=== PATIENT | male | born 1935 | race Caucasian/White ===

== ENCOUNTER → 2016-06-07 | Outpatient (CLI) | payer MEDICARE, OTHER ==
[2016-06-07 05:49] LABS: ABSOLUTE BASOPHILS # (AUTO) 0.1 10^3/uL (0.0-0.2); ABSOLUTE EOSINOPHILS # (AUTO) 0.2 10^3/uL (0.0-0.6); ABSOLUTE LYMPHOCYTES (AUTO) 1.6 10^3/uL (0.5-4.7); ABSOLUTE MONOCYTES (AUTO) 1.1 10^3/uL (0.1-1.4); ABSOLUTE NEUT (AUTO) 6.1 10^3/uL (1.7-8.2); BASOPHILS % (AUTO) 0.8 % (0-2); EOSINOPHILS % (AUTO) 2.5 % (0-6); HEMATOCRIT 35.8 % (37.9-51.0); HEMOGLOBIN 11.2 g/dL (13.5-17.0); HGB HCT DIFFERENCE -2.2; LYMPHOCYTES % (AUTO) 17.6 % (13-45); MEAN CORPUSCULAR HGB CONC 31.2 g/dL (32.0-36.0); MEAN CORPUSCULAR VOLUME 80 fl (80-97); RED BLOOD COUNT 4.47 10^6/uL (4.35-5.55); RED CELL DISTRIBUTION WIDTH 16.8 % (11.5-14.0); SEGMENTED NEUTROPHILS % (AUTO) 67.1 % (42-78)
[2016-06-07 06:21] LABS: ALANINE AMINOTRANSFERASE 36 U/L (21-72); ALBUMIN 3.6 g/dL (3.5-5.0); ALKALINE PHOSPHATASE 173 U/L (38-126); ANION GAP 16 (5-19); ASPARTATE AMINO TRANSFERASE 29 U/L (17-59); BILIRUBIN,TOTAL 1.3 mg/dL (0.2-1.3); BLOOD UREA NITROGEN 44 mg/dL (7-20); CALCIUM 9.3 mg/dL (8.4-10.2); CARBON DIOXIDE 26 mmol/L (22-30); CHLORIDE 105 mmol/L (98-107); CHOLESTEROL 86.68 mg/dL (0-200); CREATININE RESULT 1.88 mg/dL (0.52-1.25); Direct HDL 38 mg/dL (>40); GLUCOSE 129 mg/dL (75-110); POTASSIUM 3.9 mmol/L (3.6-5.0); SODIUM 146.5 mmol/L (137-145); TOTAL PROTEIN 6.4 g/dL (6.3-8.2); TRIGLYCERIDES 46 mg/dL (<150)
[2016-06-07 06:31] LABS: DIRECT LDL 31 mg/dL (<100)
== END ==
LOC: LAB 05:26
PROVIDERS: ATTEND Family Medicine
DX: I10 Essential (primary) hypertension (principal); E11.9 Type 2 diabetes mellitus without complications; E78.5 Hyperlipidemia, unspecified
CPT/HCPCS: 36415; 80053; 80061; 83036; 85025

== ENCOUNTER 2016-10-25 12:40 | Inpatient (IN) | payer MEDICARE, OTHER ==
[2016-10-25] MEDS ORDERED: NORMAL SALINE 1000 ML 1,000 ML IV ONE ×2 (13:07→15:19)
[2016-10-25 13:37] LABS: APPEARANCE,URINE CLOUDY; BILIRUBIN,URINE NEGATIVE (NEGATIVE); GLUCOSE, URINE NEGATIVE (NEGATIVE); KETONES,URINE NEGATIVE (NEGATIVE); LEUKOCYTE ESTERASE,URINE LARGE (NEGATIVE); NITRITE,URINE NEGATIVE (NEGATIVE); PROTEIN,URINE 100 mg/dL (NEGATIVE); URINE SPECIFIC GRAVITY 1.013; UROBILINOGEN,URINE NEGATIVE mg/dL (<2.0)
[2016-10-25 13:58] LABS: ABSOLUTE EOSINOPHILS # (AUTO) 0.1 10^3/uL (0.0-0.6); ABSOLUTE LYMPHOCYTES (AUTO) 0.7 10^3/uL (0.5-4.7); ABSOLUTE NEUT (AUTO) 7.8 10^3/uL (1.7-8.2); BASOPHILS % (AUTO) 0.4 % (0-2); EOSINOPHILS % (AUTO) 0.6 % (0-6); HEMATOCRIT 33.3 % (37.9-51.0); HEMOGLOBIN 10.2 g/dL (13.5-17.0); HGB HCT DIFFERENCE -2.7; LYMPHOCYTES % (AUTO) 7.6 % (13-45); MEAN CORPUSCULAR HEMOGLOBIN 21.5 pg (27.0-33.4); MEAN CORPUSCULAR HGB CONC 30.5 g/dL (32.0-36.0); MEAN CORPUSCULAR VOLUME 71 fl (80-97); MONOCYTES % (AUTO) 10.7 % (3-13); RED BLOOD COUNT 4.72 10^6/uL (4.35-5.55); RED CELL DISTRIBUTION WIDTH 18.9 % (11.5-14.0); SEGMENTED NEUTROPHILS % (AUTO) 80.7 % (42-78); WHITE BLOOD COUNT 9.7 10^3/uL (4.0-10.5)
[2016-10-25 14:01] LABS: PROTHROMBIN TIME 20.7 SEC (11.4-15.4)
[2016-10-25 14:08] LABS: ALANINE AMINOTRANSFERASE 30 U/L (21-72); ALBUMIN 3.3 g/dL (3.5-5.0); ALKALINE PHOSPHATASE 189 U/L (38-126); ANION GAP 14 (5-19); ASPARTATE AMINO TRANSFERASE 29 U/L (17-59); BILIRUBIN,DIRECT 0.6 mg/dL (0.0-0.4); BLOOD UREA NITROGEN 54 mg/dL (7-20); CALCIUM 9.3 mg/dL (8.4-10.2); CARBON DIOXIDE 23 mmol/L (22-30); CHLORIDE 103 mmol/L (98-107); CREATINE KINASE 33 U/L (55-170); CREATININE RESULT 2.09 mg/dL (0.52-1.25); GLUCOSE 141 mg/dL (75-110); POTASSIUM 5.4 mmol/L (3.6-5.0); SODIUM 139.9 mmol/L (137-145); TOTAL PROTEIN 7.2 g/dL (6.3-8.2)
--- NOTE | 2016-10-25 14:08 | RADIOLOGY REPORT (SQ) ---
EXAM DESCRIPTION: CHEST SINGLE VIEW COMPLETED DATE/TIME: 10/25/2016 1:41 pm REASON FOR STUDY: weak COMPARISON: September 2014 EXAM PARAMETERS: NUMBER OF VIEWS: One view. TECHNIQUE: Single frontal radiographic view of the chest acquired. RADIATION DOSE: NA LIMITATIONS: None. FINDINGS: LUNGS AND PLEURA: No opacities, masses or pneumothorax. No pleural effusion. MEDIASTINUM AND HILAR STRUCTURES: No masses. Contour normal. HEART AND VASCULAR STRUCTURES: Cardiac silhouette is enlarged. BONES: No acute findings. HARDWARE: Transvenous pacemaker is unchanged in position. OTHER: No other significant finding. IMPRESSION: Cardiomegaly. No acute consolidations or pleural effusions are identified. TECHNICAL DOCUMENTATION: JOB ID: [id number]
[2016-10-25 14:26] LABS: CREATINE KINASE MB 2.1 ng/mL (<4.55); TROPONIN I 0.014 ng/mL
--- NOTE | 2016-10-25 14:31 | RADIOLOGY REPORT (SQ) ---
EXAM DESCRIPTION: ANKLE LEFT COMPLETE COMPLETED DATE/TIME: 10/25/2016 1:41 pm REASON FOR STUDY: pain COMPARISON: None. NUMBER OF VIEWS: Three views. TECHNIQUE: AP, lateral, and oblique radiographic images acquired of the left ankle. LIMITATIONS: None. FINDINGS: MINERALIZATION: Osteopenia. BONES: No acute fracture or dislocation. No worrisome bone lesions. There is a plantar calcaneal sp ur. JOINTS: No effusions. SOFT TISSUES: Soft tissue swelling is present. OTHER: No other significant finding. IMPRESSION: Soft tissue swelling with no fracture. TECHNICAL DOCUMENTATION: JOB ID: [id number] [employer]- All Rights Reserved
--- NOTE | 2016-10-25 14:38 | RADIOLOGY REPORT (SQ) ---
EXAM DESCRIPTION: SHOULDER RIGHT 2 OR MORE VIEWS COMPLETED DATE/TIME: 10/25/2016 1:41 pm REASON FOR STUDY: pain COMPARISON: None. NUMBER OF VIEWS: Three views. TECHNIQUE: Internal rotation, external rotation, and Y view images acquired of the right shoulder. LIMITATIONS: None. FINDINGS: MINERALIZATION: Normal. BONES: No acute fracture or dislocation is seen. There is bony sclerosis involving the scapula at th e level of the glenoid and lateral portion of the scapula inferior to the glenoid. The differential possibilities would include metastatic disease or Paget's disease. Large osteophyte is identified at the level of the humeral head. JOINTS: No dislocation. VISUALIZED LUNGS AND RIBS: No pneumothorax. No rib fracture. SOFT TISSUES: No radiopaque foreign body. OTHER: No other significant finding. IMPRESSION: No evidence for acute fracture or dislocation. There is bony sclerosis involving the sc apula at the level of the glenoid and lateral portion of the scapula inferior to the glenoid. The di fferential possibilities would include metastatic disease or Paget's disease. Clinical correlation i s recommended. Other findings as noted above. TECHNICAL DOCUMENTATION: JOB ID: [id number]- All Rights Reserved
[2016-10-25] MEDS ORDERED: CEFTRIAXONE 1 GM/D5W RTU 50 ML IV ONE (14:54)
--- NOTE | 2016-10-25 15:19 | ER Document Report ---
ED General - General Chief Complaint: General Weakness Stated Complaint: LEG PAIN AND WEAKNESS Time Seen by Provider: 10/25/16 12:54 TRAVEL OUTSIDE OF THE [place] IN LAST 30 DAYS: No - HPI Patient complains to provider of: Generalized weakness feeling unwell Notes: Patient coming in for generalized weakness feeling unwell. Patient is also complaining of left lower extremity pain. Patient has bruising and swelling to the side of the head. Family states they found patient yesterday outside with his mother rise to wheelchair. Unknown patient had a fall. Patient otherwise has a history of bladder cancer with recent pacemaker replacement and a suprapubic catheter placement. Urine has been cloudy for the last few days. Patient denies fever chills nausea vomiting diarrhea. - Related Data Allergies/Adverse Reactions: ciprofloxacin [Ciprofloxacin] Allergy (Severe, Verified 09/05/14 15:35) skin turned red, developed sores Home Medications: Current Home Medications Acarbose [Precose 25 mg Tablet] 25 mg PO TID 10/25/16 [History] Amiodarone HCl [Cordarone 200 mg Tablet] 200 mg PO DAILY 10/25/16 [History] Amiodarone HCl [Cordarone 200 mg Tablet] 400 mg PO DAILY 10/25/16 [History] Amiodarone HCl [Cordarone 200 mg Tablet] 400 mg PO Q12 10/25/16 [History] Apixaban [Eliquis 5 mg Tablet] 5 mg PO Q12 10/25/16 [History] Atorvastatin Calcium [Lipitor 20 mg Tablet] 20 mg PO QHS 10/25/16 [History] Citalopram Hydrobromide [Celexa 20 mg Tablet] 20 mg PO DAILY 10/25/16 [History] Docusate Sodium [Colace 100 mg Capsule] 100 mg PO Q12 10/25/16 [History] Esomeprazole Magnesium [Nexium] 20 mg PO DAILY 10/25/16 [History] Ezetimibe [Zetia 10 mg Tablet] 10 mg PO DAILY 10/25/16 [History] Famotidine [Pepcid 20 mg Tablet] 20 mg PO Q12 10/25/16 [History] Ferrous Sulfate [Iron] 325 mg PO Q12 10/25/16 [History] Furosemide [Lasix] 40 mg PO DAILY 10/25/16 [History] Insulin Aspart [Novolog Insulin (Aspart) 100 unit/mL] 15 units SQ MEALS [History] Insulin Glargine,Hum.rec.anlog [Lantus Insulin 100 Unit/1 ml 10 ml] 46 units SQ QHS 10/25/16 [History] Methocarbamol [Robaxin 500 mg Tablet] 500 mg PO Q12 10/25/16 [History] Metolazone [Zaroxolyn 2.5 mg Tablet] 2.5 mg PO TH 10/25/16 [History] Metoprolol Succinate [Toprol Xl 25 mg Tab.sr] 12.5 mg PO DAILY 10/25/16 [History ] Multivit-Min/FA/Lycopen/Lutein [Men 50 Plus Multivitamin Tab] 1 tab PO DAILY 05/01 [History] Nateglinide [Starlix 60 mg Tablet] 60 mg PO Q12 10/25/16 [History] Nitroglycerin [Nitrostat] 0.4 mg SL Q5MP PRN 10/25/16 [History] Pantoprazole Sodium [Protonix] 20 mg PO DAILY 10/25/16 [History] Past Medical History - Social History Smoking Status: Never Smoker Chew tobacco use (# tins/day): No Frequency of alcohol use: None Drug Abuse: None Family History: Reviewed & Not Pertinent Patient has suicidal ideation: No Patient has homicidal ideation: No - Past Medical History Cardiac Medical History: Reports: Hx Congestive Heart Failure, Hx Heart Attack - pacemaker, stent, Hx Hypertension Denies: Hx Coronary Artery Disease Pulmonary Medical History: Reports: Hx COPD Denies: Hx Asthma, Hx Bronchitis, Hx Pneumonia Neurological Medical History: Denies: Hx Cerebrovascular Accident, Hx Seizures Endocrine Medical History: Reports: Hx Diabetes Mellitus Type 2 Renal/ Medical History: Denies: Hx Peritoneal Dialysis Musculoskeltal Medical History: Reports Hx Arthritis Surgical Hx: Negative - Immunizations Hx Diphtheria, Pertussis, Tetanus Vaccination: No Review of Systems - Review of Systems Constitutional: Weakness, Other - Leg pain EENT: No symptoms reported Cardiovascular: No symptoms reported Respiratory: No symptoms reported Gastrointestinal: No symptoms reported Genitourinary: No symptoms reported Male Genitourinary: No symptoms reported Musculoskeletal: No symptoms reported Skin: No symptoms reported Hematologic/Lymphatic: No symptoms reported Neurological/Psychological: No symptoms reported Physical Exam - Vital signs Vitals: Temp 98.3 F 10/25/16 12:48 Interpretation: Normal - General General appearance: Appears well, Alert - HEENT Head: Normocephalic, Atraumatic Eyes: Normal Pupils: PERRL - Respiratory Respiratory status: No respiratory distress Chest status: Nontender Breath sounds: Normal Chest palpation: Normal - Cardiovascular Rhythm: Regular Heart sounds: Normal auscultation Murmur: No - Abdominal Inspection: Other - Patient with a suprapubic catheter placed with dressing dressing looks to have some yellowish drainage the catheter site itself looks to be well maintained no signs of overt wound infection. Distension: No distension Bowel sounds: Normal Tenderness: Nontender Organomegaly: No organomegaly - Back Back: Normal, Nontender - Extremities General upper extremity: Normal inspection, Nontender, Normal color, Normal ROM , Normal temperature General lower extremity: Normal inspection, Nontender, Normal color, Normal ROM , Normal temperature, Normal weight bearing. No: Rosario's sign - Neurological Neuro grossly intact: Yes Cognition: Normal Orientation: AAOx4 Kiana Coma Scale Eye Opening: Spontaneous Kiana Coma Scale Verbal: Oriented Kiana Coma Scale Motor: Obeys Commands [place] Coma Scale Total: 15 Speech: Normal Motor strength normal: LUE, RUE, LLE, RLE Sensory: Normal - Psychological Associated symptoms: Normal affect, Normal mood - Skin Skin Temperature: Warm Skin Moisture: Dry Skin Color: Normal Course - Re-evaluation Re-evalutation: 10/25/16 18:38 Urinalysis shows signs of infection. X-rays performed of the patient's lower extremities chest and right shoulders patient was complaining pain in his thighs. Concern for possible metastatic disease with sclerosing of the bones on the shoulder x-ray. Patient plans were discussed with PCP decision made to admit the patient for further evaluation due to his weakness and UTI. - Vital Signs Vital signs: Temp Pulse Resp BP Pulse Ox 98.3 F 114 H 20 130/95 H 94 10/25/16 12:48 10/25/16 17:02 10/25/16 17:02 10/25/16 12:56 10/25/16 17:02 - Laboratory Result Diagrams: 10/25/16 13:00 10/25/16 13:00 Laboratory results interpreted by me: 10/25/16 10/25/16 10/25/16 13:00 13:00 13:00 Hgb 10.2 L Hct 33.3 L MCV 71 L MCH 21.5 L MCHC 30.5 L RDW 18.9 H Seg Neutrophils % 80.7 H Lymphocytes % 7.6 L PT 20.7 H Potassium 5.4 H BUN 54 H Creatinine 2.09 H Est GFR ( Amer) 37 L Est GFR (Non-Af Amer) 31 L Glucose 141 H POC Glucose Direct Bilirubin 0.6 H Alkaline Phosphatase 189 H Creatine Kinase 33 L Albumin 3.3 L Urine Protein Urine Blood Ur Leukocyte Esterase Urine Ascorbic Acid 10/25/16 10/25/16 13:03 13:20 Hgb Hct MCV MCH MCHC RDW Seg Neutrophils % Lymphocytes % PT Potassium BUN Creatinine Est GFR ( Amer) Est GFR (Non-Af Amer) Glucose POC Glucose 128 H Direct Bilirubin Alkaline Phosphatase Creatine Kinase Albumin Urine Protein 100 H Urine Blood LARGE H Ur Leukocyte Esterase LARGE H Urine Ascorbic Acid 40 H Discharge - Discharge Clinical Impression: Generalized weakness, Bony lesions concerning for metastatic UTI (urinary tract infection) Qualifiers: Urinary tract infection type: acute cystitis Hematuria presence: without hematuria Qualified Code(s): N30.00 - Acute cystitis without hematuria Acute on chronic renal failure Qualifiers: Acute renal failure type: unspecified Chronic kidney disease stage: unspecified stage Qualified Code(s): N17.9 - Acute kidney failure, unspecified Right ankle pain Qualifiers: Chronicity: acute Qualified Code(s): M25.571 - Pain in right ankle and joints of right foot Admitting Provider: [facility] Admitted: [facility]
[2016-10-25] MEDS ORDERED: IPRATROPIUM/ALBUTEROL 0.5-2.5 MG/3 ML AMPUL NEB PRN (15:35)
[2016-10-25] MEDS ORDERED: ACETAMINOPHEN 325 MG TABLET PO PRN (15:35)
[2016-10-25] MEDS ORDERED: ONDANSETRON HCL INJ/PF 4 MG/2 ML SDV IV PRN (15:35)
[2016-10-25] MEDS ORDERED: DEXTROSE 40% GEL 15 GM TUBE PO PRN ×2 (15:37)
[2016-10-25] MEDS ORDERED: GLUCAGON,HUMAN RECOMB 1 MG INJ IM PRN (15:37)
[2016-10-25] MEDS ORDERED: DEXTROSE 50%-WATER 25 GM/50 ML DISP.SYRIN IV PRN (15:37)
[2016-10-25] MEDS ORDERED: ONDANSETRON HCL INJ/PF 4 MG/2 ML SDV IV ONE (16:14)
[2016-10-25] MEDS ORDERED: MORPHINE SULFATE 10 MG/ML INJ IV ONE (16:14)
--- NOTE | 2016-10-25 17:31 | PDOC H&P ---
History of Present Illness Admission Date/PCP: 10/25/16 15:48 JACOB LEE MD Patient complains of: Altered mental status and weakness History of Present Illness: DAREK SIMON is a 81 year old male Patient is a 81-year-old male with a significant history of the coronary artery disease and chronic A. fib and history of the pacemaker and recently a change some leads at the [facility] and a history of the bladder cancer status post suprapubic catheter was placed and seen in the [facility] for that came to the emergency department with complaint of left lower extremities pain and not feeling well and very weak. Patients denied any chest pain denied any shortness of the breath In the emergency department patient initial ultrasound was negative for any DVT and patient have a possible urinary tract infections and the sepsis and decided to admit for further evaluation and treatments patient's daughter is in the bedside Discussed with the patient's current conditions and patient expressed to be a DNR/DNI and daughter understand very well and the patient understand very well patient also have a chronic kidney disease And also currently see a Dr. Jeong for that and baseline creatinine is 2.1 Past Medical History Cardiac Medical History: Reports: Congestive Heart Failure, Myocardial Infarction - pacemaker, stent, Hypertension Denies: Coronary Artery Disease Pulmonary Medical History: Reports: Chronic Obstructive Pulmonary Disease (COPD) Denies: Asthma, Bronchitis, Pneumonia Neurological Medical History: Denies: Seizures Endocrine Medical History: Reports: Diabetes Mellitus Type 2 Renal/ Medical History: Reports: Chronic Kidney Disease Malignancy Medical History: Reports: Other Malignancy History Note: Bladder cancer GI Medical History: Reports: Gastroesophageal Reflux Disease Musculoskeltal Medical History: Reports: Arthritis Psychiatric Medical History: Reports: Depression Hematology: Reports: Anemia Past Surgical History Past Surgical History: Reports: Cardiac Catheterization, Coronary Stent, Orthopedic Surgery, Pacemaker Social History Smoking Status: Never Smoker Family History Family History: Reviewed & Not Pertinent Parental Family History Reviewed: Yes Children Family History Reviewed: Yes Sibling(s) Family History Reviewed.: Yes Medication/Allergy Home Medications: Acetaminophen [Tylenol 325 mg Tablet] 650 mg PO ASDIR 02/01/11 Insulin Glargine,Hum.rec.anlog [Lantus] 55 unit SQ QHS 02/01/11 Insulin Regular, Human [Novolin R (Reg) Insulin 100 unit/mL] 15 unit SUBCUT BID 02/01/11 Metoprolol Tartrate [Lopressor 25 Mg Tablet] 25 mg PO BID 02/01/11 Nitroglycerin [Nitrostat] 0.4 mg SL ASDIR PRN 02/01/11 Spironolactone 25 mg PO DAILY 02/01/11 Acarbose [Precose 25 mg Tablet] 25 mg PO TID 10/23/13 Atorvastatin Calcium 20 mg PO DAILY 10/23/13 Ca Cmb No.1/Vit D3/B-6/FA/B12 [Vitamin D3 1,000 Unit Tablet] 1 tab PO DAILY 02/26 Docusate Sodium [Colace 100 mg Capsule] 100 mg PO DAILY 10/23/13 Esomeprazole Magnesium [Nexium] 40 mg PO DAILY 10/23/13 Methocarbamol 500 mg PO QID 10/23/13 Multivitamin [Daily Vitamin] 1 each PO DAILY 10/23/13 Telmisartan [Micardis 20 mg Tablet] 20 mg PO DAILY 10/23/13 Apixaban [Eliquis 5 mg Tablet] 5 mg PO BID 09/06/14 Ezetimibe [Zetia 10 mg Tablet] 10 mg PO DAILY 09/06/14 Famotidine 20 mg PO BID 09/06/14 Ferrous Sulfate [Iron] 325 mg PO BID 09/06/14 Nateglinide [Starlix 60 Mg Tablet] 60 mg PO BID 09/06/14 Simethicone [Mi-Acid] 80 mg PO ASDIR PRN 09/06/14 Allergies/Adverse Reactions: ciprofloxacin [Ciprofloxacin] Allergy (Severe, Verified 09/05/14 15:35) skin turned red, developed sores Review of Systems Constitutional: PRESENT: fatigue, fever(s), weakness Eyes: ABSENT: as per HPI, visual disturbances, other Nose, Mouth, and Throat: ABSENT: as per HPI, headache(s), mouth pain, sore throat, vertigo, other Cardiovascular: ABSENT: as per HPI, chest pain, dyspnea on exertion, edema, orthropnea, palpitations, other Respiratory: ABSENT: as per HPI, cough, dyspnea, hemoptysis, sputum, other Gastrointestinal: ABSENT: as per HPI, abdominal pain, bloating, coffee ground emesis, constipation, diarrhea, dysphagia, heartburn, hematemesis, hematochezia , melena, nausea, vomiting, other Genitourinary: PRESENT: dysuria Musculoskeletal: PRESENT: back pain Neurological: PRESENT: weakness Physical Exam Vital Signs: Temp Pulse Resp BP Pulse Ox 98.3 F 20 130/95 H 10/25/16 12:48 10/25/16 12:51 10/25/16 12:56 General appearance: PRESENT: no acute distress Eye exam: PRESENT: PERRLA Ear exam: PRESENT: normal external ear exam Mouth exam: PRESENT: neck supple Neck exam: ABSENT: JVD Respiratory exam: PRESENT: clear to auscultation denita Cardiovascular exam: PRESENT: irregular rhythm, +S1, +S2 GI/Abdominal exam: PRESENT: normal bowel sounds, soft. ABSENT: tenderness Extremities exam: PRESENT: pedal edema Neurological exam: PRESENT: alert, awake, oriented to person, oriented to place Skin exam: PRESENT: dry Results Impressions: Ankle X-Ray 10/25/16 13:06 IMPRESSION: Soft tissue swelling with no fracture. Chest X-Ray 10/25/16 13:06 IMPRESSION: Cardiomegaly. No acute consolidations or pleural effusions are identified. Shoulder X-Ray 10/25/16 13:06 IMPRESSION: No evidence for acute fracture or dislocation. There is bony sclerosis involving the scapula at the level of the glenoid and lateral portion of the scapula inferior to the glenoid. The differential possibilities would include metastatic disease or Paget's disease. Clinical correlation is recommended. Other findings as noted above. Assessment & Plan - Diagnosis (1) UTI (urinary tract infection) Qualifiers: Urinary tract infection type: acute cystitis Hematuria presence: without hematuria Qualified Code(s): N30.00 - Acute cystitis without hematuria Is this a current diagnosis for this admission?: YesPlan: Start the patient on IV antibiotic at the urine culture and blood culture (2) Atrial fibrillation Qualifiers: Atrial fibrillation type: chronic Qualified Code(s): I48.2 - Chronic atrial fibrillation Is this a current diagnosis for this admission?: YesPlan: Currently on Eliquis (3) Hypertension Qualifiers: Hypertension type: essential hypertension Qualified Code(s): I10 - Essential (primary) hypertension Is this a current diagnosis for this admission?: YesPlan: Continues to current medications (4) Anemia Qualifiers: Anemia type: unspecified type Qualified Code(s): D64.9 - Anemia, unspecified Is this a current diagnosis for this admission?: YesPlan: From chronic kidney disease currently all stable (5) Bladder cancer Qualifiers: Bladder location: unspecified site Qualified Code(s): C67.9 - Malignant neoplasm of bladder, unspecified Is this a current diagnosis for this admission?: YesPlan: Patient is currently see the urology in [place] and recently admitting in the hospital over the will continues to follow here Patient's shoulder x-ray so some kind of metastatic disease not sure will consult the oncology for further input (6) Congestive heart failure Qualifiers: Congestive heart failure type: systolic Congestive heart failure chronicity: chronic Qualified Code(s): I50.22 - Chronic systolic ( congestive) heart failure Is this a current diagnosis for this admission?: YesPlan: Patient's currently see a doctor At [place] for that (7) Acute on chronic renal failure Qualifiers: Acute renal failure type: unspecified Chronic kidney disease stage: unspecified stage Qualified Code(s): N17.9 - Acute kidney failure, unspecified; N18.9 - Chronic kidney disease, unspecified Is this a current diagnosis for this admission?: YesPlan: Patient's normal creatinine 1.7-2 and patient's currently see a Dr. Jeong for that (8) Generalized weakness Is this a current diagnosis for this admission?: YesPlan: Will get the physical therapy evaluations rule out sepsis (9) Coronary artery disease Qualifiers: Coronary Disease-Associated Artery/Lesion type: unspecified vessel or lesion type Is this a current diagnosis for this admission?: YesPlan: We will get the cardiac enzymes every 63 (10) Pacemaker Is this a current diagnosis for this admission?: YesPlan: Will order the interrogation of the pacemaker while the patient is here in consult the cardiology (11) Cellulitis and abscess of lower extremity Is this a current diagnosis for this admission?: YesPlan: We will get the IV antibiotic and will also get arterial Doppler for further evaluations for any PAD - Time Time Spent: 30 to 50 Minutes Medications reviewed and adjusted accordingly: Yes Anticipated discharge: Other Within: Other - Inpatient Certification Medical Necessity: Need Close Monitoring Due to Risk of Patient Decompensation, Need For Continuous Telemetry Monitoring Post Hospital Care: D/C Nocturnist Physician Documentation - Plan Summary Plan Summary: Discussed with the patient and the daughter about the patient's current conditions start the IV antibiotic and further evaluations
[2016-10-25] MEDS: DOCUSATE SODIUM 100 MG CAPSULE PO SCH (18:15)
--- NOTE | 2016-10-25 19:05 | RADIOLOGY REPORT (SQ) ---
EXAM DESCRIPTION: CT HEAD WITHOUT COMPLETED DATE/TIME: 10/25/2016 6:32 pm REASON FOR STUDY: ams COMPARISON: 08/03/2008 TECHNIQUE: Axial images acquired through the brain without intravenous contrast. Images reviewed wi th bone, brain and subdural windows. Images stored on PACS. All CT scanners at this facility use dose modulation, iterative reconstruction, and/or weight based d osing when appropriate to reduce radiation dose to as low as reasonably achievable (ALARA). [facility]: Dose Right [facility]: CareDose [facility]: Dose Right [facility]: Teradose 4D [facility]: [employer] RADIATION DOSE: Up-to-date CT equipment and radiation dose reduction techniques were employed. CTDIv ol: 64.6 mGy. DLP: 1163 mGy-cm.mGy. LIMITATIONS: None. FINDINGS: VENTRICLES: Prominent. CEREBRUM: No masses. No hemorrhage. No midline shift. Areas of low density in the white matter mos t likely due to chronic micro-vascular ischemic change. No evidence for acute infarction. CEREBELLUM: No masses. No hemorrhage. No alteration of density. No evidence for acute infarction. EXTRAAXIAL SPACES: Age-related involutional change. No fluid collections. No masses. ORBITS AND GLOBE: No intra- or extraconal masses. Normal contour of globe without masses. CALVARIUM: No fracture. PARANASAL SINUSES: No fluid or mucosal thickening. SOFT TISSUES: No mass or hematoma. OTHER: No other significant finding. IMPRESSION: CHRONIC CHANGES OF ATROPHY AND MICROVASCULAR ISCHEMIA. NO ACUTE PROCESS. TECHNICAL DOCUMENTATION: JOB ID: [id number] Quality ID # [id number]: Final reports with documentation of one or more dose reduction techniques (e.g., Au tomated exposure control, adjustment of the mA and/or kV according to patient size, use of iterative reconstruction technique) 2010 [employer]- All Rights Reserved
--- NOTE | 2016-10-25 19:12 | XCELERA REPORT ---
[address] [address] Lower Extremity Venous Evaluation Name: DAREK SIMON Age: 81 yrs Gender: Male : 1935 Patient Status: Inpatient Patient Location: \S\[facility]\S\A Study Date: 10/25/2016 03:51 PM Procedure: Color flow and duplex imaging of the veins of the left lower extremity as well as the right Common Femoral vein. Reason For Study: left leg pain Ordering Physician: LEDY CAMPOS Performed By: Abida Sanchez Right Sided Venous Evaluation The right common femoral vein is fully compressible. Spontaneous and phasic flow is present in the right common femoral vein. Left Sided Venous Evaluation Normal vessel filling wall to wall, compression and augmentation as well as Colour flow down to the infrageniculate veins. Interpretation Summary No duplex evidence of DVT or obstruction in the left lower extremity nor in the right Common Femoral vein. : LEDY CAMPOS > Olivier Dickinson
--- NOTE | 2016-10-25 20:31 | PDOC CONSULTATION ---
Consultation Consult Date: 10/25/16 Attending physician:: JACOB SIMPSON Consult reason:: Atrial fibrillation, status post pacemaker placement History of Present Illness Admission Date/PCP: 10/25/16 15:35 JACOB SIMPSON MD Patient complains of: Mental status changes History of Present Illness: DAREK SIMON is a 81 year old male with a significant history of the coronary artery disease and chronic A. fib and history of the pacemaker and recently a pacemaker change out at the [facility]. Patient was noted to have decreased responsiveness and was shaking this morning with cool upper and lower extremities. Patient's daughter check blood sugar and it was noted to be just 55. He was given some juice to drink and he felt better subsequently he ate some sandwiches. Patient however did not look good and therefore was taken to the emergency room. Patient was noted to have lower extremity discomfort. Patients denied any chest pain denied any shortness of the breath. Patient is suspected to have possible UTI, sepsis, cellulitis etc. Dr. Simpson wants me to follow the patient for his underlying cardiac status. 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 The daughter tells me that he has not been seen locally to the best of their knowledge. Patient had a pacemaker battery change out but prior to that, patient had a transesophageal echocardiogram and had a cardioversion. Currently he was placed on amiodarone therapy. Discussed with the patient's current conditions and patient expressed to be a DNR/DNI and daughter understand very well and the patient understand very well patient also have a chronic kidney disease Patient also currently see a Dr. Jeong for that and baseline creatinine is 2.1 This history was reviewed confirmed and supplemented. Past Medical History Cardiac Medical History: Reports: Congestive Heart Failure, Myocardial Infarction - pacemaker, stent, Hypertension Denies: Coronary Artery Disease Pulmonary Medical History: Reports: Chronic Obstructive Pulmonary Disease (COPD) , Sleep Apnea Denies: Asthma, Bronchitis, Pneumonia Neurological Medical History: Denies: Seizures Endocrine Medical History: Reports: Diabetes Mellitus Type 2 Renal/ Medical History: Reports: Chronic Kidney Disease Malignancy Medical History: Reports: Other GI Medical History: Reports: Gastroesophageal Reflux Disease Musculoskeltal Medical History: Reports: Arthritis Psychiatric Medical History: Reports: Depression Hematology: Reports: Anemia Past Surgical History Past Surgical History: Reports: Cardiac Catheterization, Coronary Stent, Orthopedic Surgery, Pacemaker Social History Information Source: Relative Smoking Status: Never Smoker - Advance Directive Resuscitation Status: Do Not Resuscitate Surrogate healthcare decision maker:: Patient eldest daughter is the surrogate decision maker. Patient's has dementia. Family History Family History: Reviewed & Not Pertinent Parental Family History Reviewed: Yes Children Family History Reviewed: Yes Sibling(s) Family History Reviewed.: Yes Medication/Allergy Home Medications: Acarbose [Precose 25 mg Tablet] 25 mg PO TID 10/25/16 Amiodarone HCl [Cordarone 200 mg Tablet] 200 mg PO DAILY 10/25/16 Amiodarone HCl [Cordarone 200 mg Tablet] 400 mg PO DAILY 10/25/16 Amiodarone HCl [Cordarone 200 mg Tablet] 400 mg PO Q12 10/25/16 Apixaban [Eliquis 5 mg Tablet] 5 mg PO Q12 10/25/16 Atorvastatin Calcium [Lipitor 20 mg Tablet] 20 mg PO QHS 10/25/16 Citalopram Hydrobromide [Celexa 20 mg Tablet] 20 mg PO DAILY 10/25/16 Docusate Sodium [Colace 100 mg Capsule] 100 mg PO Q12 10/25/16 Esomeprazole Magnesium [Nexium] 20 mg PO DAILY 10/25/16 Ezetimibe [Zetia 10 mg Tablet] 10 mg PO DAILY 10/25/16 Famotidine [Pepcid 20 mg Tablet] 20 mg PO Q12 10/25/16 Ferrous Sulfate [Iron] 325 mg PO Q12 10/25/16 Furosemide [Lasix] 40 mg PO DAILY 10/25/16 Insulin Aspart [Novolog Insulin (Aspart) 100 unit/mL] 15 units SQ MEALS Insulin Glargine,Hum.rec.anlog [Lantus Insulin 100 Unit/1 ml 10 ml] 46 units SQ QHS 10/25/16 Methocarbamol [Robaxin 500 mg Tablet] 500 mg PO Q12 10/25/16 Metolazone [Zaroxolyn 2.5 mg Tablet] 2.5 mg PO TH 10/25/16 Metoprolol Succinate [Toprol Xl 25 mg Tab.sr] 12.5 mg PO DAILY 10/25/16 Multivit-Min/FA/Lycopen/Lutein [Men 50 Plus Multivitamin Tab] 1 tab PO DAILY 05/01 Nateglinide [Starlix 60 mg Tablet] 60 mg PO Q12 10/25/16 Nitroglycerin [Nitrostat] 0.4 mg SL Q5MP PRN 10/25/16 Pantoprazole Sodium [Protonix] 20 mg PO DAILY 10/25/16 Allergies/Adverse Reactions: ciprofloxacin [Ciprofloxacin] Allergy (Severe, Verified 09/05/14 15:35) skin turned red, developed sores Review of Systems ROS unobtainable: Due to mental status Physical Exam Vital Signs: Temp Pulse Resp BP Pulse Ox 98.3 F 114 H 25 H 129/91 H 94 10/25/16 12:48 10/25/16 17:02 10/25/16 18:01 10/25/16 18:00 10/25/16 17:02 Exam: GENERAL: well-nourished and in no acute distress. Patient is alert but not oriented to place time or person. HEAD: Atraumatic, normocephalic. EYES: Pupils equal round and reactive to light, extraocular movements intact, sclera anicteric, conjunctiva are normal. ENT: TMs normal, nares patent, oropharynx clear without exudates. Moist mucous membranes. No oral ulcerations or bleeding gums noted NECK: supple without lymphadenopathy or JVD. Trachea is central. No cervical or axillary lymphadenopathy noted. Carotids are 2+ LUNGS: Breath sounds bibasilar fine crackles at bases. No significant dullness noted. CHEST: Palpation of chest wall shows no significant chest wall tenderness. 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 ABDOMEN: Soft, no significant tenderness appreciated, normoactive bowel sounds. No guarding, no rebound. No rigidity noted . No masses appreciated. EXTREMITIES: Pedal pulses are 1-2+, no calf tenderness noted, Trace + pedal edema noted. No clubbing or cyanosis. NEUROLOGICAL: Patient is alert but is not willing to participate in neurological exam because of patient's current mental status, patient however is very weak. PSYCH: Patient cannot participate in a neurologic and psych exam because of the patient's current mental status. SKIN: No significant ecchymosis, erythematous rash with superficial ulceration noted left lower extremity and also right lower extremity but left more than right. MUSCULOSKELETAL EXAM: No significant joint swelling noted. Results EKG Comments: Ventricular paced beats Impressions: Head CT 10/25/16 00:00 IMPRESSION: CHRONIC CHANGES OF ATROPHY AND MICROVASCULAR ISCHEMIA. NO ACUTE PROCESS. Ankle X-Ray 10/25/16 13:06 IMPRESSION: Soft tissue swelling with no fracture. Chest X-Ray 10/25/16 13:06 IMPRESSION: Cardiomegaly. No acute consolidations or pleural effusions are identified. Shoulder X-Ray 10/25/16 13:06 IMPRESSION: No evidence for acute fracture or dislocation. There is bony sclerosis involving the scapula at the level of the glenoid and lateral portion of the scapula inferior to the glenoid. The differential possibilities would include metastatic disease or Paget's disease. Clinical correlation is recommended. Other findings as noted above. Assessment & Plan - Diagnosis (1) Coronary artery disease Qualifiers: Coronary Disease-Associated Artery/Lesion type: unspecified vessel or lesion type Is this a current diagnosis for this admission?: Yes (2) Generalized weakness Is this a current diagnosis for this admission?: Yes (3) Pacemaker Is this a current diagnosis for this admission?: Yes (4) Cellulitis of lower extremity Qualifiers: Laterality: unspecified laterality Qualified Code(s): L03.119 - Cellulitis of unspecified part of limb Is this a current diagnosis for this admission?: Yes (5) Hypertension Qualifiers: Hypertension type: essential hypertension Qualified Code(s): I10 - Essential (primary) hypertension Is this a current diagnosis for this admission?: Yes (6) UTI (urinary tract infection) Qualifiers: Urinary tract infection type: acute cystitis Hematuria presence: without hematuria Qualified Code(s): N30.00 - Acute cystitis without hematuria Is this a current diagnosis for this admission?: Yes (7) Atrial fibrillation Qualifiers: Atrial fibrillation type: chronic Qualified Code(s): I48.2 - Chronic atrial fibrillation Is this a current diagnosis for this admission?: Yes - Notes Notes: EKG was reviewed. Chest x-ray reviewed. Recent hospitalization, pacemaker placement etc. to be reviewed. Have asked for information to be sent from [facility]. Verbal order placed with nurse. Recent cardiac evaluation and these will be reviewed. It seems patient had a transesophageal echocardiogram therefore did not order a 2D echo. Do not feel patient is a candidate for ischemia evaluation. Will recommend continuing monitoring for any cardiac dysrhythmia, recurrence of atrial fibrillation. Maintain vitals. Continue amiodarone and other risk factor modification and medical management of coronary artery disease. Recommend maintaining electrolytes within normal range. Status post pacemaker placement: No evidence of pacemaker site infection noted but patient does seem to have a seroma. Pacemaker noted to be functioning normally but underlying atrial rhythm cannot be assessed. Atrial fibrillation: Continue amiodarone therapy. Continue chronic anticoagulation. Cellulitis of the lower extremity: Continue antibiotic therapy. Hypertension: Blood pressure under reasonable control. Urinary tract infection: Continue antibiotic therapy. Coronary artery disease: Patient is symptomatically stable. At this point no evaluation planned. Sleep apnea syndrome: Patient currently using CPAP. Recommend continuation of CPAP therapy. We will continue to follow patient. - Time Time Spent: 30 to 50 Minutes - CODE STATUS : was discussed, patient remains DO NOT RESUSCITATE. Surrogate decision-maker unchanged. Multiple medical problems were addressed. More than 50% of the time spent coordinating care, discussing management plans with involved caregivers. Management plans discussed with involved personnels. Medical decision making was of high complexity, patient's has multiple comorbidities. Medications reviewed and adjusted accordingly: Yes
[2016-10-25 20:47] LABS: CREATINE KINASE MB 2.04 ng/mL (<4.55); TROPONIN I 0.019 ng/mL
[2016-10-25] MEDS ORDERED: CEFEPIME 1 GM/D5W RTU 1 GM/50 ML RTUPB IV SCH (22:00)
[2016-10-25] MEDS: CEFEPIME HCL 1 GM in DEXTROSE 5%-WATER 50 ML IV SCH (23:35)
[2016-10-25] MEDS: MORPHINE SULFATE 10 MG/ML INJ IV PRN (23:36)
[2016-10-26] MEDS: INSULIN LISPRO 100 UNIT/ML 3 ML VIAL SUBCUT PRN (00:02)
[2016-10-26] MEDS ORDERED: NITROGLYCERIN 0.4 MG/TAB 25 TAB/BOTTLE SL PRN (00:10)
--- NOTE | 2016-10-26 00:17 | EKG REPORT ---
SEVERITY:- ABNORMAL ECG - VENTRICULAR-PACED COMPLEXES LOW VOLTAGE IN FRONTAL LEADS : Confirmed by: Malik Mckeon 26-Oct-2016 00:16:28
[2016-10-26 02:46] LABS: CREATINE KINASE MB 1.7 ng/mL (<4.55); TROPONIN I 0.023 ng/mL
[2016-10-26] MEDS: MORPHINE SULFATE 10 MG/ML INJ IV PRN ×4 (05:27→20:58)
[2016-10-26] MEDS ORDERED: INSULIN ASPART 15 UNIT SQ SCH (08:00)
[2016-10-26] MEDS ORDERED: LANSOPRAZOLE 15 MG TAB.RAP.DR PO ONE (08:00)
[2016-10-26 08:18] LABS: ABSOLUTE BASOPHILS # (AUTO) 0.1 10^3/uL (0.0-0.2); ABSOLUTE EOSINOPHILS # (AUTO) 0.1 10^3/uL (0.0-0.6); ABSOLUTE MONOCYTES (AUTO) 1.3 10^3/uL (0.1-1.4); ABSOLUTE NEUT (AUTO) 6.5 10^3/uL (1.7-8.2); BASOPHILS % (AUTO) 0.6 % (0-2); EOSINOPHILS % (AUTO) 1.2 % (0-6); HEMATOCRIT 32.9 % (37.9-51.0); HGB HCT DIFFERENCE -2.9; LYMPHOCYTES % (AUTO) 11.5 % (13-45); MEAN CORPUSCULAR HEMOGLOBIN 21.5 pg (27.0-33.4); MEAN CORPUSCULAR HGB CONC 30.4 g/dL (32.0-36.0); MEAN CORPUSCULAR VOLUME 71 fl (80-97); RED BLOOD COUNT 4.63 10^6/uL (4.35-5.55); RED CELL DISTRIBUTION WIDTH 18.7 % (11.5-14.0); SEGMENTED NEUTROPHILS % (AUTO) 72.7 % (42-78)
[2016-10-26] MEDS: INSULIN LISPRO 100 UNIT/ML 3 ML VIAL SUBCUT SCH ×3 (08:26→16:00)
[2016-10-26] MEDS: FERROUS SULFATE 325 MG TABLET PO SCH ×2 (08:28→18:25)
[2016-10-26] MEDS: NATEGLINIDE 60 MG TABLET PO SCH ×2 (08:31→16:00)
[2016-10-26 08:33] LABS: ANION GAP 13 (5-19); BLOOD UREA NITROGEN 50 mg/dL (7-20); CALCIUM 8.3 mg/dL (8.4-10.2); CARBON DIOXIDE 21 mmol/L (22-30); CHLORIDE 105 mmol/L (98-107); CREATININE RESULT 2.07 mg/dL (0.52-1.25); GLUCOSE 201 mg/dL (75-110); MAGNESIUM 1.9 mg/dL (1.6-2.3); POTASSIUM 5.5 mmol/L (3.6-5.0); SODIUM 139.2 mmol/L (137-145)
[2016-10-26 08:44] LABS: CREATINE KINASE MB 1.55 ng/mL (<4.55); TROPONIN I 0.022 ng/mL
--- NOTE | 2016-10-26 09:02 | PDOC CONSULTATION ---
Consultation Consult Date: 10/26/16 Consult reason:: Bladder Cancer History of Present Illness Admission Date/PCP: 10/25/16 15:35 JACOB LEE MD History of Present Illness: DAREK SIMON is a 81 year old male with a significant history of the coronary artery disease and chronic A. fib and history of the pacemaker and recently a pacemaker change out at the [facility] as well as a h/o Bladder Cancer treated with BCG with an indwelling suprapubic catheter who was noted to have decreased responsiveness and was shaking on the morning of admit with cool upper and lower extremities. Patient's daughter check blood sugar and it was noted to be just 55. Patient however did not look good and therefore was taken to the emergency room. Patient was noted to have lower extremity discomfort. Patients denied any chest pain denied any shortness of the breath. Patient is suspected to have possible UTI, sepsis, cellulitis etc and was placed on IV antibiotics. 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 Wiley for Urology. Patient had a pacemaker battery change out but prior to that, patient had a transesophageal echocardiogram to evaluate for thrombus and had a cardioversion. Currently he was placed on amiodarone therapy. Discussed with the patient's current conditions and patient expressed to be a DNR/DNI and daughter understand very well and the patient understand very well patient also have a chronic kidney disease. He is currently on Eliquis for his afib. Patient also currently see a Dr. Jeong for that and baseline creatinine is 2.1. The catheter is fairly new by report. This history was reviewed confirmed and supplemented. Past Medical History Cardiac Medical History: Reports: Congestive Heart Failure, Myocardial Infarction - pacemaker, stent, Hypertension Denies: Coronary Artery Disease Pulmonary Medical History: Reports: Chronic Obstructive Pulmonary Disease (COPD) , Sleep Apnea Denies: Asthma, Bronchitis, Pneumonia Neurological Medical History: Denies: Seizures Endocrine Medical History: Reports: Diabetes Mellitus Type 2 Renal/ Medical History: Reports: Chronic Kidney Disease Malignancy Medical History: Reports: Other GI Medical History: Reports: Gastroesophageal Reflux Disease Musculoskeltal Medical History: Reports: Arthritis Psychiatric Medical History: Reports: Depression Hematology: Reports: Anemia Past Surgical History Past Surgical History: Reports: Cardiac Catheterization, Coronary Stent, Orthopedic Surgery, Pacemaker Social History Smoking Status: Never Smoker Frequency of Alcohol Use: None Hx Recreational Drug Use: No Drugs: None Hx Prescription Drug Abuse: No - Advance Directive Resuscitation Status: Do Not Resuscitate Family History Family History: Reviewed & Not Pertinent Parental Family History Reviewed: Yes Children Family History Reviewed: Yes Sibling(s) Family History Reviewed.: Yes Medication/Allergy Home Medications: Acarbose [Precose 25 mg Tablet] 25 mg PO TID 10/25/16 Amiodarone HCl [Cordarone 200 mg Tablet] 200 mg PO DAILY 10/25/16 Amiodarone HCl [Cordarone 200 mg Tablet] 400 mg PO DAILY 10/25/16 Amiodarone HCl [Cordarone 200 mg Tablet] 400 mg PO Q12 10/25/16 Apixaban [Eliquis 5 mg Tablet] 5 mg PO Q12 10/25/16 Atorvastatin Calcium [Lipitor 20 mg Tablet] 20 mg PO QHS 10/25/16 Citalopram Hydrobromide [Celexa 20 mg Tablet] 20 mg PO DAILY 10/25/16 Docusate Sodium [Colace 100 mg Capsule] 100 mg PO Q12 10/25/16 Esomeprazole Magnesium [Nexium] 20 mg PO DAILY 10/25/16 Ezetimibe [Zetia 10 mg Tablet] 10 mg PO DAILY 10/25/16 Famotidine [Pepcid 20 mg Tablet] 20 mg PO Q12 10/25/16 Ferrous Sulfate [Iron] 325 mg PO Q12 10/25/16 Furosemide [Lasix] 40 mg PO DAILY 10/25/16 Insulin Aspart [Novolog Insulin (Aspart) 100 unit/mL] 15 units SQ MEALS Insulin Glargine,Hum.rec.anlog [Lantus Insulin 100 Unit/1 ml 10 ml] 46 units SQ QHS 10/25/16 Methocarbamol [Robaxin 500 mg Tablet] 500 mg PO Q12 10/25/16 Metolazone [Zaroxolyn 2.5 mg Tablet] 2.5 mg PO TH 10/25/16 Metoprolol Succinate [Toprol Xl 25 mg Tab.sr] 12.5 mg PO DAILY 10/25/16 Multivit-Min/FA/Lycopen/Lutein [Men 50 Plus Multivitamin Tab] 1 tab PO DAILY 05/01 Nateglinide [Starlix 60 mg Tablet] 60 mg PO Q12 10/25/16 Nitroglycerin [Nitrostat] 0.4 mg SL Q5MP PRN 10/25/16 Pantoprazole Sodium [Protonix] 20 mg PO DAILY 10/25/16 Allergies/Adverse Reactions: ciprofloxacin [Ciprofloxacin] Allergy (Severe, Verified 09/05/14 15:35) skin turned red, developed sores Review of Systems Constitutional: PRESENT: weakness Cardiovascular: PRESENT: as per HPI Respiratory: PRESENT: as per HPI Genitourinary: PRESENT: hematuria Physical Exam Vital Signs: Temp Pulse Resp BP Pulse Ox 97.7 F 110 H 18 140/93 H 100 10/26/16 07:05 10/26/16 07:05 10/26/16 07:05 10/26/16 07:05 10/26/16 07:05 Intake & Output 10/25/16 10/26/16 10/27/16 06:59 06:59 06:59 Intake Total 50 Output Total 500 Balance -450 Weight 73.9 kg General appearance: PRESENT: no acute distress Head exam: PRESENT: atraumatic, normocephalic Eye exam: PRESENT: EOMI, PERRLA Ear exam: PRESENT: normal external ear exam Neck exam: PRESENT: full ROM Respiratory exam: PRESENT: clear to auscultation denita, unlabored Cardiovascular exam: PRESENT: irregular rhythm, other - pacemaker in the left chest Pulses: PRESENT: other - poor pulsed in the hands and feet Vascular exam: PRESENT: pallor GI/Abdominal exam: PRESENT: normal bowel sounds, soft, other - suprapubic catheter Extremities exam: PRESENT: +1 edema Neurological exam: PRESENT: alert, oriented to person, oriented to place, CN II- XII grossly intact Psychiatric exam: PRESENT: appropriate affect Results Laboratory Results: 10/26/16 08:00 10/26/16 08:00 10/26/16 10/26/16 08:00 08:00 WBC 9.0 RBC 4.63 Hgb 10.0 L Hct 32.9 L MCV 71 L MCH 21.5 L MCHC 30.4 L RDW 18.7 H Plt Count 213 Seg Neutrophils % 72.7 Lymphocytes % 11.5 L Monocytes % 14.0 H Eosinophils % 1.2 Basophils % 0.6 Absolute Neutrophils 6.5 Absolute Lymphocytes 1.0 Absolute Monocytes 1.3 Absolute Eosinophils 0.1 Absolute Basophils 0.1 Sodium 139.2 Potassium 5.5 H Chloride 105 Carbon Dioxide 21 L Anion Gap 13 BUN 50 H Creatinine 2.07 H Est GFR ( Amer) 37 L Est GFR (Non-Af Amer) 31 L Glucose 201 H Calcium 8.3 L Magnesium 1.9 10/25/16 10/25/16 10/26/16 19:55 19:55 02:14 Creatine Kinase 72 61 CK-MB (CK-2) 2.04 Troponin I 0.019 10/26/16 10/26/16 02:14 08:00 Creatine Kinase CK-MB (CK-2) 1.70 1.55 Troponin I 0.023 0.022 Impressions: Head CT 10/25/16 00:00 IMPRESSION: CHRONIC CHANGES OF ATROPHY AND MICROVASCULAR ISCHEMIA. NO ACUTE PROCESS. Ankle X-Ray 10/25/16 13:06 IMPRESSION: Soft tissue swelling with no fracture. Chest X-Ray 10/25/16 13:06 IMPRESSION: Cardiomegaly. No acute consolidations or pleural effusions are identified. Shoulder X-Ray 10/25/16 13:06 IMPRESSION: No evidence for acute fracture or dislocation. There is bony sclerosis involving the scapula at the level of the glenoid and lateral portion of the scapula inferior to the glenoid. The differential possibilities would include metastatic disease or Paget's disease. Clinical correlation is recommended. Other findings as noted above. Assessment & Plan - Diagnosis (1) Acute on chronic renal failure Qualifiers: Acute renal failure type: unspecified Chronic kidney disease stage: unspecified stage Qualified Code(s): N17.9 - Acute kidney failure, unspecified; N18.9 - Chronic kidney disease, unspecified Is this a current diagnosis for this admission?: YesPlan: Dr. Jeong follows as an outpatient. Will discuss Eliquis dosing with him. (2) Anemia Qualifiers: Anemia type: unspecified type Qualified Code(s): D64.9 - Anemia, unspecified Is this a current diagnosis for this admission?: YesPlan: Will treat with IV iron once the labs are back. (3) Atrial fibrillation Qualifiers: Atrial fibrillation type: chronic Qualified Code(s): I48.2 - Chronic atrial fibrillation Is this a current diagnosis for this admission?: YesPlan: per Cardiology (4) Bladder cancer Qualifiers: Bladder location: unspecified site Qualified Code(s): C67.9 - Malignant neoplasm of bladder, unspecified Is this a current diagnosis for this admission?: YesPlan: Check a Bone scan today and possibly a CT tomorrow. Will contact his Urologists (5) Generalized weakness Is this a current diagnosis for this admission?: Yes - Time Time Spent: 50 to 70 Minutes Critical Time spent with patient: 25-34 minutes Medications reviewed and adjusted accordingly: Yes Anticipated discharge: Acute Rehab - Inpatient Certification Based on my medical assessment, after consideration of the patient's comorbidities, presenting symptoms, or acuity I expect that the services needed warrant INPATIENT care.: Yes Medical Necessity: Need for IV Antibiotics
[2016-10-26 09:29] LABS: CARCINOEMBRYONIC ANTIGEN 3.7 ng/mL (<3.0)
[2016-10-26] MEDS: ACARBOSE 50 MG TABLET PO SCH ×3 (09:29→16:47)
[2016-10-26] MEDS: DOCUSATE SODIUM 100 MG CAPSULE PO SCH ×3 (09:33→18:25)
[2016-10-26] MEDS: CITALOPRAM HYDROBROMIDE 20 MG TABLET PO SCH (09:33)
[2016-10-26] MEDS: FAMOTIDINE 20 MG TABLET PO SCH (09:33)
[2016-10-26] MEDS: APIXABAN 5 MG TABLET PO SCH (09:34)
[2016-10-26] MEDS: FUROSEMIDE 40 MG TABLET PO SCH (09:35)
[2016-10-26] MEDS: METOPROLOL SUCCINATE 25 MG TAB.SR.24H PO SCH (09:35)
[2016-10-26] MEDS: EZETIMIBE 10 MG TABLET PO SCH (09:37)
[2016-10-26] MEDS: METHOCARBAMOL 500 MG TABLET PO SCH (09:37)
[2016-10-26] MEDS ORDERED: CEFTRIAXONE 1 GM/D5W RTU 50 ML IV SCH (10:00)
[2016-10-26] MEDS ORDERED: AMIODARONE HCL 200 MG TABLET PO SCH ×2 (10:00)
[2016-10-26] MEDS ORDERED: (PENDING PHARMACY ID) (Multivit-Min/Fa/Lycopen/Lutein [Men 50 Plus Multivitamin Tab] 1 TAB PO SCH (10:00)
[2016-10-26] MEDS ORDERED: (PENDING PHARMACY ID) (Pantoprazole Sodium [Protonix] 20 MG) PO SCH (10:00)
[2016-10-26] MEDS ORDERED: (PENDING PHARMACY ID) (Esomeprazole Magnesium [Nexium] 20 MG) PO SCH (10:00)
[2016-10-26 10:20] LABS: FOLATE > 20.00 ng/mL (>2.76)
--- NOTE | 2016-10-26 11:03 | EKG REPORT ---
SEVERITY:- ABNORMAL ECG - VENTRICULAR-PACED RHYTHM : Confirmed by: Malik Mckeon 26-Oct-2016 11:03:18
--- NOTE | 2016-10-26 13:38 | PDOC PROGRESS REPORT ---
Subjective Progress Note for:: 10/26/16 Subjective:: Patient is currently doing well. Patient's denied any chest pain denied any shortness of the breath. Patient's leg pain is currently stable.Patient seen by cardiology and currently all stable Physical Exam Vital Signs: Temp Pulse Resp BP Pulse Ox 97.7 F 110 H 18 140/93 H 100 10/26/16 07:05 10/26/16 07:05 10/26/16 07:05 10/26/16 07:05 10/26/16 07:05 Intake & Output 10/25/16 10/26/16 10/27/16 06:59 06:59 06:59 Intake Total 50 Output Total 500 Balance -450 Weight 73.9 kg General appearance: PRESENT: no acute distress Eye exam: PRESENT: conjunctiva pink, PERRLA Neck exam: PRESENT: full ROM Respiratory exam: PRESENT: clear to auscultation denita Cardiovascular exam: PRESENT: +S1, +S2 GI/Abdominal exam: PRESENT: normal bowel sounds, soft Extremities exam: ABSENT: pedal edema Neurological exam: PRESENT: alert, awake, oriented to person, oriented to place , oriented to time Skin exam: PRESENT: dry Results Laboratory Results: 10/26/16 08:00 10/26/16 08:00 10/26/16 10/26/16 10/26/16 08:00 08:00 08:00 WBC 9.0 RBC 4.63 Hgb 10.0 L Hct 32.9 L MCV 71 L MCH 21.5 L MCHC 30.4 L RDW 18.7 H Plt Count 213 Seg Neutrophils % 72.7 Lymphocytes % 11.5 L Monocytes % 14.0 H Eosinophils % 1.2 Basophils % 0.6 Absolute Neutrophils 6.5 Absolute Lymphocytes 1.0 Absolute Monocytes 1.3 Absolute Eosinophils 0.1 Absolute Basophils 0.1 Retic Count (auto) Absolute Retic Sodium 139.2 Potassium 5.5 H Chloride 105 Carbon Dioxide 21 L Anion Gap 13 BUN 50 H Creatinine 2.07 H Est GFR ( Amer) 37 L Est GFR (Non-Af Amer) 31 L Glucose 201 H Calcium 8.3 L Magnesium 1.9 Iron < 10.1 L TIBC 289 % Saturation UNABLE TO CALCULATE Ferritin 34.10 Vitamin B12 > 1000.0 H Folate > 20.00 10/26/16 08:00 WBC RBC Hgb Hct MCV MCH MCHC RDW Plt Count Seg Neutrophils % Lymphocytes % Monocytes % Eosinophils % Basophils % Absolute Neutrophils Absolute Lymphocytes Absolute Monocytes Absolute Eosinophils Absolute Basophils Retic Count (auto) 1.91 Absolute Retic 0.088 Sodium Potassium Chloride Carbon Dioxide Anion Gap BUN Creatinine Est GFR ( Amer) Est GFR (Non-Af Amer) Glucose Calcium Magnesium Iron TIBC % Saturation Ferritin Vitamin B12 Folate 10/25/16 10/25/16 10/26/16 19:55 19:55 02:14 Creatine Kinase 72 61 CK-MB (CK-2) 2.04 Troponin I 0.019 NT-Pro-B Natriuret Pep 10/26/16 10/26/16 10/26/16 02:14 08:00 08:00 Creatine Kinase 45 L CK-MB (CK-2) 1.70 1.55 Troponin I 0.023 0.022 NT-Pro-B Natriuret Pep 10/26/16 08:00 Creatine Kinase CK-MB (CK-2) Troponin I NT-Pro-B Natriuret Pep 7440 H Impressions: Head CT 10/25/16 00:00 IMPRESSION: CHRONIC CHANGES OF ATROPHY AND MICROVASCULAR ISCHEMIA. NO ACUTE PROCESS. Ankle X-Ray 10/25/16 13:06 IMPRESSION: Soft tissue swelling with no fracture. Chest X-Ray 10/25/16 13:06 IMPRESSION: Cardiomegaly. No acute consolidations or pleural effusions are identified. Shoulder X-Ray 10/25/16 13:06 IMPRESSION: No evidence for acute fracture or dislocation. There is bony sclerosis involving the scapula at the level of the glenoid and lateral portion of the scapula inferior to the glenoid. The differential possibilities would include metastatic disease or Paget's disease. Clinical correlation is recommended. Other findings as noted above. Assessment & Plan - Diagnosis (1) UTI (urinary tract infection) Qualifiers: Urinary tract infection type: acute cystitis Hematuria presence: without hematuria Qualified Code(s): N30.00 - Acute cystitis without hematuria Is this a current diagnosis for this admission?: YesPlan: Start the patient on IV antibiotic at the urine culture and blood culture (2) Atrial fibrillation Qualifiers: Atrial fibrillation type: chronic Qualified Code(s): I48.2 - Chronic atrial fibrillation Is this a current diagnosis for this admission?: YesPlan: Currently on Eliquis (3) Hypertension Qualifiers: Hypertension type: essential hypertension Qualified Code(s): I10 - Essential (primary) hypertension Is this a current diagnosis for this admission?: YesPlan: Continues to current medications (4) Anemia Qualifiers: Anemia type: unspecified type Qualified Code(s): D64.9 - Anemia, unspecified Is this a current diagnosis for this admission?: YesPlan: From chronic kidney disease currently all stable (5) Bladder cancer Qualifiers: Bladder location: unspecified site Qualified Code(s): C67.9 - Malignant neoplasm of bladder, unspecified Is this a current diagnosis for this admission?: YesPlan: Follow with the oncology possible bone scan and further evaluations (6) Congestive heart failure Qualifiers: Congestive heart failure type: systolic Congestive heart failure chronicity: chronic Qualified Code(s): I50.22 - Chronic systolic ( congestive) heart failure Is this a current diagnosis for this admission?: YesPlan: Patient's currently see a doctor [facility] for that (7) Acute on chronic renal failure Qualifiers: Acute renal failure type: unspecified Chronic kidney disease stage: unspecified stage Qualified Code(s): N17.9 - Acute kidney failure, unspecified; N18.9 - Chronic kidney disease, unspecified Is this a current diagnosis for this admission?: YesPlan: Patient's normal creatinine 1.7-2 and patient's currently see a Dr. Jeong for that (8) Generalized weakness Is this a current diagnosis for this admission?: YesPlan: Will get the physical therapy evaluations rule out sepsis (9) Coronary artery disease Qualifiers: Coronary Disease-Associated Artery/Lesion type: unspecified vessel or lesion type Is this a current diagnosis for this admission?: YesPlan: We will get the cardiac enzymes every 63 (10) Pacemaker Is this a current diagnosis for this admission?: YesPlan: Will order the interrogation of the pacemaker while the patient is here in consult the cardiology (11) Cellulitis and abscess of lower extremity Is this a current diagnosis for this admission?: YesPlan: We will get the IV antibiotic and will also get arterial Doppler for further evaluations for any PAD - Time Time Spent with patient: 15-24 minutes Medications reviewed and adjusted accordingly: Yes Anticipated discharge: Other Within: Other - Inpatient Certification Medical Necessity: Need for IV Antibiotics Post Hospital Care: D/C [employer] Documentation - Plan Summary Plan Summary: Continues to current medicationsDiscussed with the daughter very extensively about the parent patient's conditions and patient's currently is a DNR/DNI
--- NOTE | 2016-10-26 15:47 | RADIOLOGY REPORT (SQ) ---
EXAM DESCRIPTION: NM WHOLE BODY BONE SCAN COMPLETED DATE/TIME: 10/26/2016 3:15 pm REASON FOR STUDY: cancer COMPARISON: No available imaging studies for comparison. RADIONUCLIDE AND DOSE: 21.7 millicuries Tc99m MDP. The route of agent administration: Intravenous. ADDITIONAL DRUGS AND DOSES: None. TECHNIQUE: Routine delayed images at 3 hour post radionuclide injection acquired of the bony skeleto n including anterior and posterior whole-body projections and additional focused images as needed. LIMITATIONS: None. FINDINGS: BONES: Activity in the right shoulder, left knee, and left foot consistent with degenerati ve joint disease. Focal activity in the left great toe possibly due to chronic change or previous tr auma. Photopenic areas consistent with prostheses in the left shoulder and right knee. Mild scolios is in the spine. No abnormal bony uptake. KIDNEYS: Symmetric excretion without obstruction. OTHER: No other significant finding. IMPRESSION: AREAS OF ACTIVITY SECONDARY TO DEGENERATIVE JOINT DISEASE. NO FINDINGS CONCERNING FOR B BEAU METASTASES. COMMENT: PQRS 3570F: Current bone scan is compared with any available plain radiographs, prior bone scans, and CT/MRI. TECHNICAL DOCUMENTATION: JOB ID: [id number] All Rights Reserved
--- NOTE | 2016-10-26 19:47 | PDOC PROGRESS REPORT ---
Subjective Progress Note for:: 10/26/16 Subjective:: Patient seems to be doing better with gradual improvement. Pt is denying any chest arm or neck discomfort. Patient denying any PND, orthopnea. Patient denied any sustained palpitations, dizziness, syncope, near syncope. Patient denying any fever chills. Patient denying any other significant discomfort. Patient is maintaining ventricular paced rhythm Review of systems: Rest review of systems negative. Medications: Medications have been reviewed. Physical Exam Vital Signs: Temp Pulse Resp BP Pulse Ox 98.2 F 108 H 16 138/91 H 96 10/26/16 15:40 10/26/16 16:10 10/26/16 16:10 10/26/16 15:40 10/26/16 16:10 Intake & Output 10/25/16 10/26/16 10/27/16 06:59 06:59 06:59 Intake Total 50 897 Output Total 500 700 Balance -450 197 Weight 73.9 kg Exam: GENERAL: well-nourished and in no acute distress. Alert and oriented x3. Patient today oriented. HEAD: Atraumatic, normocephalic. EYES: Pupils equal round and reactive to light, extraocular movements intact, sclera anicteric, conjunctiva are normal. ENT: TMs normal, nares patent, oropharynx clear without exudates. Moist mucous membranes. No oral ulcerations or bleeding gums noted NECK: supple without lymphadenopathy. Trachea is central. No cervical or axillary lymphadenopathy noted. Carotids are 2+, JVD WNL LUNGS: Respiration seems nonlabored, no significant accessory muscle action noted. Breath sounds clear to auscultation bilaterally and equal noted. No wheezes rales or rhonchi noted. No significant dullness noted on percussion. CHEST: Palpation of the chest wall shows no significant chest wall tenderness. No other significant abnormalities noted. Pacemaker noted on the left side HEART: [place] [employer]EREMONIES, No PSH, 1/6 PIPPA aortic area, 1/6 freire systolic murmur mitral area, no rubs, no gallops. ABDOMEN: Soft, no significant tenderness appreciated, normoactive bowel sounds. No guarding, no rebound. No rigidity noted . No masses appreciated. EXTREMITIES: Pedal pulses are diminished left more than right, no calf tenderness noted. No clubbing or cyanosis. 1+ pedal edema noted NEUROLOGICAL: Focused neurological exam showed no significant neurologic deficit. Normal speech, no focal weakness appreciated. PSYCH: Normal mood, normal affect. Judgment and insight within normal limits. SKIN: No significant ecchymosis, dermatitis rash and superficial ulcerations noted both legs. MUSCULOSKELETAL EXAM: No significant joint swelling noted. Results Laboratory Results: 10/26/16 08:00 10/26/16 08:00 10/26/16 10/26/16 10/26/16 08:00 08:00 08:00 WBC 9.0 RBC 4.63 Hgb 10.0 L Hct 32.9 L MCV 71 L MCH 21.5 L MCHC 30.4 L RDW 18.7 H Plt Count 213 Seg Neutrophils % 72.7 Lymphocytes % 11.5 L Monocytes % 14.0 H Eosinophils % 1.2 Basophils % 0.6 Absolute Neutrophils 6.5 Absolute Lymphocytes 1.0 Absolute Monocytes 1.3 Absolute Eosinophils 0.1 Absolute Basophils 0.1 Retic Count (auto) Absolute Retic Sodium 139.2 Potassium 5.5 H Chloride 105 Carbon Dioxide 21 L Anion Gap 13 BUN 50 H Creatinine 2.07 H Est GFR ( Amer) 37 L Est GFR (Non-Af Amer) 31 L Glucose 201 H Calcium 8.3 L Magnesium 1.9 Iron < 10.1 L TIBC 289 % Saturation UNABLE TO CALCULATE Ferritin 34.10 Vitamin B12 > 1000.0 H Folate > 20.00 10/26/16 08:00 WBC RBC Hgb Hct MCV MCH MCHC RDW Plt Count Seg Neutrophils % Lymphocytes % Monocytes % Eosinophils % Basophils % Absolute Neutrophils Absolute Lymphocytes Absolute Monocytes Absolute Eosinophils Absolute Basophils Retic Count (auto) 1.91 Absolute Retic 0.088 Sodium Potassium Chloride Carbon Dioxide Anion Gap BUN Creatinine Est GFR ( Amer) Est GFR (Non-Af Amer) Glucose Calcium Magnesium Iron TIBC % Saturation Ferritin Vitamin B12 Folate 10/25/16 10/25/16 10/26/16 19:55 19:55 02:14 Creatine Kinase 72 61 CK-MB (CK-2) 2.04 Troponin I 0.019 NT-Pro-B Natriuret Pep 10/26/16 10/26/16 10/26/16 02:14 08:00 08:00 Creatine Kinase 45 L CK-MB (CK-2) 1.70 1.55 Troponin I 0.023 0.022 NT-Pro-B Natriuret Pep 10/26/16 08:00 Creatine Kinase CK-MB (CK-2) Troponin I NT-Pro-B Natriuret Pep 7440 H EKG Comments: EKG reviewed. Showed ventricular paced rhythm. Underlying atrial rhythm possibly atrial fibrillation. Impressions: Head CT 10/25/16 00:00 IMPRESSION: CHRONIC CHANGES OF ATROPHY AND MICROVASCULAR ISCHEMIA. NO ACUTE PROCESS. Ankle X-Ray 10/25/16 13:06 IMPRESSION: Soft tissue swelling with no fracture. Chest X-Ray 10/25/16 13:06 IMPRESSION: Cardiomegaly. No acute consolidations or pleural effusions are identified. Shoulder X-Ray 10/25/16 13:06 IMPRESSION: No evidence for acute fracture or dislocation. There is bony sclerosis involving the scapula at the level of the glenoid and lateral portion of the scapula inferior to the glenoid. The differential possibilities would include metastatic disease or Paget's disease. Clinical correlation is recommended. Other findings as noted above. Body Scan Nuclear Medicine 10/26/16 08:32 IMPRESSION: AREAS OF ACTIVITY SECONDARY TO DEGENERATIVE JOINT DISEASE. NO FINDINGS CONCERNING FOR BONY METASTASES. Assessment & Plan - Diagnosis (1) Coronary artery disease Qualifiers: Coronary Disease-Associated Artery/Lesion type: unspecified vessel or lesion type Is this a current diagnosis for this admission?: Yes (2) Generalized weakness Is this a current diagnosis for this admission?: Yes (3) Pacemaker Is this a current diagnosis for this admission?: Yes (4) Cellulitis of lower extremity Qualifiers: Laterality: unspecified laterality Qualified Code(s): L03.119 - Cellulitis of unspecified part of limb Is this a current diagnosis for this admission?: Yes (5) Hypertension Qualifiers: Hypertension type: essential hypertension Qualified Code(s): I10 - Essential (primary) hypertension Is this a current diagnosis for this admission?: Yes (6) UTI (urinary tract infection) Qualifiers: Urinary tract infection type: acute cystitis Hematuria presence: without hematuria Qualified Code(s): N30.00 - Acute cystitis without hematuria Is this a current diagnosis for this admission?: Yes (7) Atrial fibrillation Qualifiers: Atrial fibrillation type: chronic Qualified Code(s): I48.2 - Chronic atrial fibrillation Is this a current diagnosis for this admission?: Yes - Notes Notes: Status post pacemaker placement: No evidence of pacemaker site infection noted but patient does seem to have a seroma. Pacemaker noted to be functioning normally but underlying atrial rhythm cannot be assessed. Will repeat an EKG in the morning. It is difficult to assess underlying atrial rhythm. Atrial fibrillation: Continue amiodarone therapy. Continue chronic anticoagulation. Cellulitis of the lower extremity: Continue antibiotic therapy. Hypertension: Blood pressure under reasonable control. Urinary tract infection: Continue antibiotic therapy. Coronary artery disease: Patient is symptomatically stable. At this point no evaluation planned. Sleep apnea syndrome: Patient will use nightly CPAP therapy. We will continue to follow patient. - Time Time with patient: 15-25 minutes - CODE STATUS : was discussed, patient remains DO NOT RESUSCITATE. Surrogate decision-maker unchanged. Multiple medical problems were addressed. More than 50% of the time spent coordinating care, discussing management plans with involved caregivers. Management plans discussed with involved personnels. Medical decision making was of moderate to high complexity, patient's has multiple comorbidities. Medications reviewed and adjusted accordingly: Yes
--- NOTE | 2016-10-26 19:56 | XCELERA REPORT ---
[address] [address] Lower Extremity Arterial Evaluation Name: DAREK SIMON Age: 81 yrs Gender: Male : 1935 Patient Status: Inpatient Patient Location: [id number] Study Date: 10/26/2016 10:17 AM Procedure: A color flow and duplex scan of the lower extremity arteries was performed bilaterally with velocity and waveform anaylsis. Reason For Study: lt lower ext pain/pad Ordering Physician: JACOB LEE Performed By: Abida Sanchez Measurements and Calculations Right Left MEDICAL ECONOMICS CONSULTANT PSV 59.4 64.9 cm/sec Prox PFA PSV -49.0 -53.1 cm/sec Prox SFA PSV 82.0 75.1 cm/sec Mid SFA PSV -50.0 -49.6 cm/sec Dist SFA PSV -54.7 -132.9 cm/sec Prox Pop A PSV 40.0 47.4 cm/sec Dist [place] PSV 57.0 82.5 cm/sec Dist LOAN ASSISTANT PSV 22.4 63.2 cm/sec Marky Pedis PSV -105.9 40.3 cm/sec Right Side Arterial Evaluation Normal velocity and triphasic waveforms noted from the Common Femoral artery to the Anterior Tibial artery. Biphasic in the Deep Femoral artery and in the Posterior Tibial artery.With moderate spectral broadening. 0-19 % stenosis noted. in the Deep Femoral artery and in The Posterior Tibial artery. Ankle Brachial index was not done. Left Side Arterial Evaluation Normal velocity and triphasic waveforms noted from the Common Femoral artery to the Posterior Tibial artery. Biphasic in the Deep Femoral artery and in the Anterior Tibial artery. With moderate spectral broadening. 0-19 % stenosis noted. in the Deep Femoral artery and in The Posterior Tibial artery. Ankle Brachial index was not done. Interpretation Summary Mild hemodynamically significant lesions in the bilateral lower extremities, on duplex imaging, at rest. : JACOB LEE Olivier Dickinson
[2016-10-26] MEDS ORDERED: INSULIN GLARGINE,HUM.REC.ANLOG 300 UNIT/3 ML INSULN.PEN SUBCUT SCH (22:00)
[2016-10-26] MEDS: DEXTROSE 50%-WATER 25 GM/50 ML DISP.SYRIN IV PRN (22:09)
[2016-10-27] MEDS: DOCUSATE SODIUM 100 MG CAPSULE PO SCH ×3 (00:08→18:40)
[2016-10-27] MEDS: FAMOTIDINE 20 MG TABLET PO SCH (00:09)
[2016-10-27] MEDS: APIXABAN 5 MG TABLET PO SCH ×3 (00:09→22:55)
[2016-10-27] MEDS: METHOCARBAMOL 500 MG TABLET PO SCH ×3 (00:09→22:29)
[2016-10-27] MEDS: ATORVASTATIN CALCIUM 20 MG TABLET PO SCH ×2 (00:09→22:54)
[2016-10-27] MEDS: CEFEPIME HCL 1 GM in DEXTROSE 5%-WATER 50 ML IV SCH ×2 (00:09→22:54)
[2016-10-27] MEDS: MORPHINE SULFATE 10 MG/ML INJ IV PRN ×2 (04:53→19:35)
[2016-10-27 04:55] LABS: ABSOLUTE EOSINOPHILS # (AUTO) 0.1 10^3/uL (0.0-0.6); ABSOLUTE LYMPHOCYTES (AUTO) 1.1 10^3/uL (0.5-4.7); ABSOLUTE MONOCYTES (AUTO) 1.8 10^3/uL (0.1-1.4); ABSOLUTE NEUT (AUTO) 7.7 10^3/uL (1.7-8.2); BASOPHILS % (AUTO) 0.4 % (0-2); EOSINOPHILS % (AUTO) 0.7 % (0-6); HEMATOCRIT 32.5 % (37.9-51.0); HEMOGLOBIN 9.9 g/dL (13.5-17.0); HGB HCT DIFFERENCE -2.8; LYMPHOCYTES % (AUTO) 10.2 % (13-45); MEAN CORPUSCULAR HEMOGLOBIN 21.4 pg (27.0-33.4); MEAN CORPUSCULAR HGB CONC 30.5 g/dL (32.0-36.0); MEAN CORPUSCULAR VOLUME 70 fl (80-97); MONOCYTES % (AUTO) 16.5 % (3-13); RED BLOOD COUNT 4.62 10^6/uL (4.35-5.55); RED CELL DISTRIBUTION WIDTH 18.1 % (11.5-14.0); SEGMENTED NEUTROPHILS % (AUTO) 72.2 % (42-78); WHITE BLOOD COUNT 10.7 10^3/uL (4.0-10.5)
[2016-10-27 05:19] LABS: ANION GAP 11 (5-19); BLOOD UREA NITROGEN 53 mg/dL (7-20); CALCIUM 9.2 mg/dL (8.4-10.2); CARBON DIOXIDE 25 mmol/L (22-30); CHLORIDE 104 mmol/L (98-107); CREATININE RESULT 2.21 mg/dL (0.52-1.25); POTASSIUM 4.9 mmol/L (3.6-5.0); SODIUM 139.9 mmol/L (137-145)
[2016-10-27 05:30] LABS: GLUCOSE 40 mg/dL (75-110)
[2016-10-27] MEDS: LANSOPRAZOLE 15 MG TAB.RAP.DR PO SCH (05:35)
[2016-10-27] MEDS: DEXTROSE 50%-WATER 25 GM/50 ML DISP.SYRIN IV PRN (05:35)
--- NOTE | 2016-10-27 08:43 | PDOC PROGRESS REPORT ---
Subjective Progress Note for:: 10/27/16 Subjective:: Patient is currently doing fair still complains of pain in the leg. Patient's arterial Doppler was no really acute finding some mild lesion. Patient's bone scan was so far negative without any malignancy Patients denied any chest pain denied any shortness of the breath Discussed with the daughter and the bedside about the all the test results and the plan Physical Exam Vital Signs: Temp Pulse Resp BP Pulse Ox 97.7 F 123 H 19 118/88 H 93 10/27/16 07:19 10/27/16 07:19 10/27/16 07:19 10/27/16 07:19 10/27/16 07:19 Intake & Output 10/26/16 10/27/16 10/28/16 06:59 06:59 06:59 Intake Total 50 1294 Output Total 500 1950 Balance -450 -656 Weight 73.9 kg 87.7 kg General appearance: PRESENT: no acute distress, well-developed, well-nourished Head exam: PRESENT: atraumatic, normocephalic Eye exam: PRESENT: conjunctiva pink, EOMI, PERRLA. ABSENT: scleral icterus Ear exam: PRESENT: normal external ear exam Mouth exam: PRESENT: moist, tongue midline Neck exam: PRESENT: full ROM. ABSENT: carotid bruit, JVD, lymphadenopathy, thyromegaly Respiratory exam: PRESENT: clear to auscultation denita Cardiovascular exam: PRESENT: RRR. ABSENT: diastolic murmur, rubs, systolic murmur Pulses: PRESENT: normal dorsalis pedis pul, +2 pedal pulses bilateral Vascular exam: PRESENT: normal capillary refill GI/Abdominal exam: PRESENT: normal bowel sounds, soft. ABSENT: distended, guarding, mass, organolmegaly, rebound, tenderness Rectal exam: PRESENT: deferred Extremities exam: ABSENT: pedal edema Additional comments: Mild redness on the left lower extremity Neurological exam: PRESENT: alert, awake, oriented to person, oriented to place , oriented to time, oriented to situation, CN II-XII grossly intact. ABSENT: motor sensory deficit Psychiatric exam: PRESENT: appropriate affect, normal mood. ABSENT: homicidal ideation, suicidal ideation Skin exam: PRESENT: dry, intact, warm. ABSENT: cyanosis, rash Results Laboratory Results: 10/27/16 04:23 10/27/16 04:23 10/26/16 10/26/16 10/27/16 08:00 08:00 04:23 WBC 10.7 H RBC 4.62 Hgb 9.9 L Hct 32.5 L MCV 70 L MCH 21.4 L MCHC 30.5 L RDW 18.1 H Plt Count 211 Seg Neutrophils % 72.2 Lymphocytes % 10.2 L Monocytes % 16.5 H Eosinophils % 0.7 Basophils % 0.4 Absolute Neutrophils 7.7 Absolute Lymphocytes 1.1 Absolute Monocytes 1.8 H Absolute Eosinophils 0.1 Absolute Basophils 0.0 Retic Count (auto) 1.91 Absolute Retic 0.088 Sodium Potassium Chloride Carbon Dioxide Anion Gap BUN Creatinine Est GFR ( Amer) Est GFR (Non-Af Amer) Glucose Calcium Iron < 10.1 L TIBC 289 % Saturation UNABLE TO CALCULATE Ferritin 34.10 Vitamin B12 > 1000.0 H Folate > 20.00 10/27/16 04:23 WBC RBC Hgb Hct MCV MCH MCHC RDW Plt Count Seg Neutrophils % Lymphocytes % Monocytes % Eosinophils % Basophils % Absolute Neutrophils Absolute Lymphocytes Absolute Monocytes Absolute Eosinophils Absolute Basophils Retic Count (auto) Absolute Retic Sodium 139.9 Potassium 4.9 Chloride 104 Carbon Dioxide 25 Anion Gap 11 BUN 53 H Creatinine 2.21 H Est GFR ( Amer) 35 L Est GFR (Non-Af Amer) 29 L Glucose 40 L* Calcium 9.2 Iron TIBC % Saturation Ferritin Vitamin B12 Folate 10/25/16 10/25/16 10/26/16 19:55 19:55 02:14 Creatine Kinase 72 61 CK-MB (CK-2) 2.04 Troponin I 0.019 NT-Pro-B Natriuret Pep 10/26/16 10/26/16 10/26/16 02:14 08:00 08:00 Creatine Kinase 45 L CK-MB (CK-2) 1.70 1.55 Troponin I 0.023 0.022 NT-Pro-B Natriuret Pep 10/26/16 08:00 Creatine Kinase CK-MB (CK-2) Troponin I NT-Pro-B Natriuret Pep 7440 H Impressions: Head CT 10/25/16 00:00 IMPRESSION: CHRONIC CHANGES OF ATROPHY AND MICROVASCULAR ISCHEMIA. NO ACUTE PROCESS. Ankle X-Ray 10/25/16 13:06 IMPRESSION: Soft tissue swelling with no fracture. Chest X-Ray 10/25/16 13:06 IMPRESSION: Cardiomegaly. No acute consolidations or pleural effusions are identified. Shoulder X-Ray 10/25/16 13:06 IMPRESSION: No evidence for acute fracture or dislocation. There is bony sclerosis involving the scapula at the level of the glenoid and lateral portion of the scapula inferior to the glenoid. The differential possibilities would include metastatic disease or Paget's disease. Clinical correlation is recommended. Other findings as noted above. Body Scan Nuclear Medicine 10/26/16 08:32 IMPRESSION: AREAS OF ACTIVITY SECONDARY TO DEGENERATIVE JOINT DISEASE. NO FINDINGS CONCERNING FOR BONY METASTASES. Assessment & Plan - Diagnosis (1) UTI (urinary tract infection) Qualifiers: Urinary tract infection type: acute cystitis Hematuria presence: without hematuria Qualified Code(s): N30.00 - Acute cystitis without hematuria Is this a current diagnosis for this admission?: YesPlan: Start the patient on IV antibiotic at the urine culture and blood culture (2) Atrial fibrillation Qualifiers: Atrial fibrillation type: chronic Qualified Code(s): I48.2 - Chronic atrial fibrillation Is this a current diagnosis for this admission?: YesPlan: Currently on Eliquis (3) Hypertension Qualifiers: Hypertension type: essential hypertension Qualified Code(s): I10 - Essential (primary) hypertension Is this a current diagnosis for this admission?: YesPlan: Continues to current medications (4) Anemia Qualifiers: Anemia type: unspecified type Qualified Code(s): D64.9 - Anemia, unspecified Is this a current diagnosis for this admission?: YesPlan: From chronic kidney disease currently all stable (5) Bladder cancer Qualifiers: Bladder location: unspecified site Qualified Code(s): C67.9 - Malignant neoplasm of bladder, unspecified Is this a current diagnosis for this admission?: YesPlan: Currently all stable (6) Congestive heart failure Qualifiers: Congestive heart failure type: systolic Congestive heart failure chronicity: chronic Qualified Code(s): I50.22 - Chronic systolic ( congestive) heart failure Is this a current diagnosis for this admission?: YesPlan: Continues to Lasix we hold the Zaroxolyn (7) Acute on chronic renal failure Qualifiers: Acute renal failure type: unspecified Chronic kidney disease stage: unspecified stage Qualified Code(s): N17.9 - Acute kidney failure, unspecified; N18.9 - Chronic kidney disease, unspecified Is this a current diagnosis for this admission?: YesPlan: Currently stable we hold Zaroxolyn (8) Generalized weakness Is this a current diagnosis for this admission?: YesPlan: At the physical therapy (9) Coronary artery disease Qualifiers: Coronary Disease-Associated Artery/Lesion type: unspecified vessel or lesion type Is this a current diagnosis for this admission?: YesPlan: We will get the cardiac enzymes every 63 (10) Pacemaker Is this a current diagnosis for this admission?: YesPlan: Will order the interrogation of the pacemaker while the patient is here in consult the cardiology (11) Cellulitis and abscess of lower extremity Is this a current diagnosis for this admission?: YesPlan: We will get the IV antibiotic and will also get arterial Doppler for further evaluations for any PAD - Time Time Spent with patient: 15-24 minutes Medications reviewed and adjusted accordingly: Yes Anticipated discharge: SNF Within: Other - Inpatient Certification Medical Necessity: Need Close Monitoring Due to Risk of Patient Decompensation Post Hospital Care: D/C Nursing Home Aide Documentation - Plan Summary Plan Summary: Continues to IV antibiotic at the physical therapy also x-ray of the bilateral ankle and we hold the Zaroxolyn but the patient's kidney function is getting worse. Patient's blood sugar in the lower range patient is not getting good in the hospital and hold the patient insulin and use the sliding scale Discussed with the daughter on the bedside about patient's current conditions and all the test results
[2016-10-27] MEDS: INSULIN LISPRO 100 UNIT/ML 3 ML VIAL SUBCUT SCH ×3 (09:39→15:52)
--- NOTE | 2016-10-27 09:50 | RADIOLOGY REPORT (SQ) ---
EXAM DESCRIPTION: ANKLE BILATERAL AP/LAT COMPLETED DATE/TIME: 10/27/2016 9:16 am REASON FOR STUDY: ankle sprain COMPARISON: None. NUMBER OF VIEWS: Three views. TECHNIQUE: AP, lateral, and oblique radiographic images acquired of the right and left ankle. LIMITATIONS: None. FINDINGS: MINERALIZATION: Osteopenia. BONES: No acute fracture or dislocation. No worrisome bone lesions. JOINTS: Degenerative changes are noted in the midfoot, hindfoot, and at the ankle joint. No signific ant effusion. SOFT TISSUES: There is mild soft tissue swelling about the ankle and foot. No radiopaque foreign bod y. OTHER: Extensive vascular calcifications noted. IMPRESSION: No acute fracture or dislocation identified. Mild soft tissue swelling noted about the ankles. No radiopaque foreign body. Degenerative changes noted in both feet and ankle joints as nell cribed TECHNICAL DOCUMENTATION: JOB ID: [id number] [employer]- All Rights Reserved
[2016-10-27] MEDS: FUROSEMIDE 40 MG TABLET PO SCH (09:55)
[2016-10-27] MEDS: METOPROLOL SUCCINATE 25 MG TAB.SR.24H PO SCH (09:55)
[2016-10-27] MEDS: FERROUS SULFATE 325 MG TABLET PO SCH ×2 (09:57→18:40)
[2016-10-27] MEDS: CITALOPRAM HYDROBROMIDE 20 MG TABLET PO SCH (09:57)
[2016-10-27] MEDS: ACARBOSE 50 MG TABLET PO SCH ×3 (09:57→18:41)
[2016-10-27] MEDS: EZETIMIBE 10 MG TABLET PO SCH (09:59)
[2016-10-27] MEDS: NATEGLINIDE 60 MG TABLET PO SCH ×2 (09:59→15:54)
[2016-10-27] MEDS ORDERED: ACETAMINOPHEN 325 MG TABLET PO PRN (10:06)
--- NOTE | 2016-10-27 11:18 | EKG REPORT ---
SEVERITY:- ABNORMAL ECG - VENTRICULAR-PACED RHYTHM INDETERMINATE UNDERLYING ATRIAL RHYTHM : Confirmed by: Malik Mckeon 27-Oct-2016 11:18:27
[2016-10-27] MEDS ORDERED: FERUMOXYTOL 510 MG in NORMAL SALINE 100 ML IV ONE (11:30)
--- NOTE | 2016-10-27 14:13 | PROGRESS NOTE E ---
Progress Note NAME: DAREK SIMON : 1935 AGE: 81Y DATE: 10/27/2016 ROOM: 315 SUBJECTIVE: The patient is here for pain of the left ankle. His daughter thinks he might have fallen, but the patient does not recollect that. The patient's rhythm seems to be atrial fibrillation with ventricular paced rhythm. He denies any chest pain or discomfort, but the patient is in severe pain. He has also cellulitis of his lower extremities, left greater than right. The patient denies any dizziness, syncope, or near syncope. The patient is gradually improving. There is no fever, chills. There are no TIA or CVA symptoms. There is no bleeding on Eliquis. OBJECTIVE: GENERAL: On examination, the patient appears to be older than his stated age. He appears to be chronically ill. VITAL SIGNS: He is afebrile with a temperature of 97.7 degrees Fahrenheit, his pulse is 123 beats per minute, blood pressure is 118/88, respirations of 19 per minute, O2 sats are 93% on room. HEAD: Atraumatic, normocephalic. EYES: Pupils are equal, round, regular, and reactive to light. Extraocular movements are normal. Sclerae are without any icterus. Conjunctivae pink EARS, NOSE, THROAT: Negative for any pathology. NECK: Supple without lymphadenopathy. Trachea is central. There is no cervical or axillary lymphadenopathy. Carotids are 2+. JVD is within normal limits. LUNGS: Respiration seems nonlabored. No significant accessory muscles of respiration in use. Breath sounds are clear to auscultation bilaterally and equal. There is no wheezing, rales, or rhonchi noted. No significant dullness noted on percussion. CHEST: Palpation of the chest wall is without any tenderness. HEART: S1 and S2 are heard. S1 is of variable intensity. There is no S3 gallop. There is no S4 gallop. There is a systolic murmur in the left sternal border and the apex. There is no rub. ABDOMEN: Soft. There is no hepatosplenomegaly. Bowel sounds are well heard. There are no masses appreciated. The patient has a suprapubic cystostomy catheter in situ. NEUROLOGIC: The patient moves all 4 extremities, but has severe pain in the left ankle. PSYCHIATRIC: The patient does not appear to be agitated or depressed. INTAKE/OUTPUT: The patient's 24-hour intake is 1,294 mL; output is 1,950 mL. DIAGNOSTIC DATA: The patient's body nuclear scan yesterday showed areas of activity secondary to degenerative joint disease. No findings concerning for bony metastasis. The patient's rhythm seems to be ventricular paced rhythm. Underlying rhythm is most likely atrial fibrillation/flutter. P waves are not seen. The patient's sodium is 139.9, potassium is 4.9, chloride is 104, CO2 is 25. The patient's BUN is 53, creatinine is 2.21, and his GFR is reduced to 29 mL, which is stage 4 chronic kidney disease. His glucose is 40. His calcium is 9.2. The patient's white count is 10,700; hemoglobin is 9.9; hematocrit is 32.5; platelet count is 211,000. IMPRESSION: 1. CORONARY ARTERY DISEASE. THE PATIENT HAS NO ANGINAL SYMPTOMS. THE PATIENT IS SYMPTOMATICALLY STABLE. 2. GENERALIZED WEAKNESS. 3. DUAL-CHAMBER PACEMAKER PLACEMENT. IT IS AN MRI [employer] PACEMAKER. 4. CELLULITIS OF THE LOWER EXTREMITIES, LEFT GREATER THAN RIGHT. CONTINUE ANTIBIOTICS. 5. HYPERTENSION. BLOOD PRESSURE SEEMS TO BE WELL CONTROLLED. 6. TACHYCARDIA, MOST LIKELY SECONDARY TO ATRIAL FIBRILLATION WITH THE PACEMAKER PACING AT A HIGHER RATE. 7. URINARY TRACT INFECTION. PATIENT ON ANTIBIOTICS. THIS IS ASSOCIATED WITH ACUTE CYSTITIS WITHOUT HEMATURIA. 8. ATRIAL FIBRILLATION WITH SLIGHTLY FAST VENTRICULAR RESPONSE. PATIENT IS ON AMIODARONE AND ELIQUIS, CONTINUING. NOTE THAT THE PATIENT IS STATUS POST PACEMAKER PLACEMENT; THIS IS AN ANTITACHYCARDIA PACING (ADP) PACEMAKER. THERE IS NO EVIDENCE OF PACEMAKER SITE INFECTION, BUT THIS SEEMS TO HAVE SOME SEROMA. PACEMAKER NOTED TO BE FUNCTIONING NORMALLY. CONTINUE AMIODARONE. CONTINUE CHRONIC ANTICOAGULATION. 9. CELLULITIS OF THE LOWER EXTREMITY. CONTINUE ANTIBIOTICS. 10. SLEEP APNEA SYNDROME. PATIENT REFUSED NIGHTLY CPAP. 11. Chronic kidney disease stage IV. 12. Diabetes mellitus with chronic kidney disease. 13 Depression. 14. Left ankle sprain. RECOMMENDATIONS: We will continue to follow the patient. Discussed with the attending physician. Note, this was of moderate complexity in decision making. If the patient's heart rate still is up, then will try to give him 1 dose of digoxin. Note, 30 minutes were spent on this patient and discussed with the patient's daughter, the findings of the pacemaker. Note, prior to the pacemaker, the patient had a STEVEN-guided electrical cardioversion, but it did not work. DICTATING PHYSICIAN: SUNSHINE GUPTA M.D. [id number] PHY#: [id number] ID: [id number] JOB#: [id number] ACCT: [id number] cc: > [facility]
--- NOTE | 2016-10-27 18:31 | PDOC PROGRESS REPORT ---
Subjective Progress Note for:: 10/27/16 Subjective:: He reports severe pain in his ankle and an Xray was obtained which was essentially unremarkable. Physical Exam Vital Signs: Temp Pulse Resp BP Pulse Ox 98.4 F 125 H 22 H 118/79 96 10/27/16 16:47 10/27/16 16:47 10/27/16 16:47 10/27/16 16:47 10/27/16 16:47 Intake & Output 10/26/16 10/27/16 10/28/16 06:59 06:59 06:59 Intake Total 50 1294 Output Total 500 1950 Balance -450 -656 Weight 73.9 kg 87.7 kg 87.7 kg General appearance: PRESENT: mild distress Head exam: PRESENT: atraumatic Eye exam: PRESENT: EOMI, PERRLA Respiratory exam: PRESENT: prolonged expiratory phas Cardiovascular exam: PRESENT: other - Rate better GI/Abdominal exam: PRESENT: other - suprapubic catheter Neurological exam: PRESENT: CN II-XII grossly intact Results Laboratory Results: 10/27/16 04:23 10/27/16 04:23 10/26/16 10/27/16 10/27/16 08:00 04:23 04:23 WBC 10.7 H RBC 4.62 Hgb 9.9 L Hct 32.5 L MCV 70 L MCH 21.4 L MCHC 30.5 L RDW 18.1 H Plt Count 211 Seg Neutrophils % 72.2 Lymphocytes % 10.2 L Monocytes % 16.5 H Eosinophils % 0.7 Basophils % 0.4 Absolute Neutrophils 7.7 Absolute Lymphocytes 1.1 Absolute Monocytes 1.8 H Absolute Eosinophils 0.1 Absolute Basophils 0.0 Sodium 139.9 Potassium 4.9 Chloride 104 Carbon Dioxide 25 Anion Gap 11 BUN 53 H Creatinine 2.21 H Est GFR ( Amer) 35 L Est GFR (Non-Af Amer) 29 L Glucose 40 L* Calcium 9.2 Transferrin 232 10/25/16 10/25/16 10/26/16 19:55 19:55 02:14 Creatine Kinase 72 61 CK-MB (CK-2) 2.04 Troponin I 0.019 NT-Pro-B Natriuret Pep 10/26/16 10/26/16 10/26/16 02:14 08:00 08:00 Creatine Kinase 45 L CK-MB (CK-2) 1.70 1.55 Troponin I 0.023 0.022 NT-Pro-B Natriuret Pep 10/26/16 08:00 Creatine Kinase CK-MB (CK-2) Troponin I NT-Pro-B Natriuret Pep 7440 H Impressions: Head CT 10/25/16 00:00 IMPRESSION: CHRONIC CHANGES OF ATROPHY AND MICROVASCULAR ISCHEMIA. NO ACUTE PROCESS. Chest X-Ray 10/25/16 13:06 IMPRESSION: Cardiomegaly. No acute consolidations or pleural effusions are identified. Shoulder X-Ray 10/25/16 13:06 IMPRESSION: No evidence for acute fracture or dislocation. There is bony sclerosis involving the scapula at the level of the glenoid and lateral portion of the scapula inferior to the glenoid. The differential possibilities would include metastatic disease or Paget's disease. Clinical correlation is recommended. Other findings as noted above. Body Scan Nuclear Medicine 10/26/16 08:32 IMPRESSION: AREAS OF ACTIVITY SECONDARY TO DEGENERATIVE JOINT DISEASE. NO FINDINGS CONCERNING FOR BONY METASTASES. Ankle X-Ray 10/27/16 00:00 IMPRESSION: No acute fracture or dislocation identified. Mild soft tissue swelling noted about the ankles. No radiopaque foreign body. Degenerative changes noted in both feet and ankle joints as described Assessment & Plan - Diagnosis (1) Acute on chronic renal failure Qualifiers: Acute renal failure type: unspecified 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 Qualified Code(s): N17.9 - Acute kidney failure, unspecified; N18.9 - Chronic kidney disease, unspecified; Z99.2 - Dependence on renal dialysis Is this a current diagnosis for this admission?: YesPlan: Stable and managed per his primary team. (2) Anemia Qualifiers: Chronic kidney disease stage: stage 3 (moderate) Is this a current diagnosis for this admission?: YesPlan: Proceed with IV iron (3) Atrial fibrillation Qualifiers: Atrial fibrillation type: chronic Qualified Code(s): I48.2 - Chronic atrial fibrillation Is this a current diagnosis for this admission?: Yes (4) Bladder cancer Qualifiers: Bladder location: unspecified site Qualified Code(s): C67.9 - Malignant neoplasm of bladder, unspecified Is this a current diagnosis for this admission?: YesPlan: Bone scan is negative except for degenerative changes. (5) Generalized weakness Is this a current diagnosis for this admission?: Yes - Time Time Spent with patient: 15-24 minutes Critical Time spent with patient: 15-24 minutes
[2016-10-27] MEDS ORDERED: INSULIN GLARGINE,HUM.REC.ANLOG 300 UNIT/3 ML INSULN.PEN SUBCUT SCH (22:00)
[2016-10-27] MEDS: INSULIN GLARGINE,HUM.REC.ANLOG 300 UNIT/3 ML INSULN.PEN SUBCUT SCH (22:59)
[2016-10-28 04:49] LABS: ABSOLUTE BASOPHILS # (AUTO) 0.1 10^3/uL (0.0-0.2); ABSOLUTE EOSINOPHILS # (AUTO) 0.1 10^3/uL (0.0-0.6); ABSOLUTE LYMPHOCYTES (AUTO) 1.2 10^3/uL (0.5-4.7); ABSOLUTE MONOCYTES (AUTO) 1.5 10^3/uL (0.1-1.4); ABSOLUTE NEUT (AUTO) 7.2 10^3/uL (1.7-8.2); BASOPHILS % (AUTO) 0.6 % (0-2); EOSINOPHILS % (AUTO) 1.4 % (0-6); HEMATOCRIT 30.6 % (37.9-51.0); HEMOGLOBIN 9.4 g/dL (13.5-17.0); HGB HCT DIFFERENCE -2.4; LYMPHOCYTES % (AUTO) 12.3 % (13-45); MEAN CORPUSCULAR HEMOGLOBIN 21.4 pg (27.0-33.4); MEAN CORPUSCULAR HGB CONC 30.8 g/dL (32.0-36.0); MEAN CORPUSCULAR VOLUME 70 fl (80-97); MONOCYTES % (AUTO) 14.7 % (3-13); RED BLOOD COUNT 4.41 10^6/uL (4.35-5.55); WHITE BLOOD COUNT 10.1 10^3/uL (4.0-10.5)
[2016-10-28 05:11] LABS: ANION GAP 13 (5-19); BLOOD UREA NITROGEN 51 mg/dL (7-20); CARBON DIOXIDE 23 mmol/L (22-30); CHLORIDE 102 mmol/L (98-107); CREATININE RESULT 2.07 mg/dL (0.52-1.25); GLUCOSE 94 mg/dL (75-110); POTASSIUM 4.6 mmol/L (3.6-5.0); SODIUM 137.5 mmol/L (137-145)
[2016-10-28] MEDS: MORPHINE SULFATE 10 MG/ML INJ IV PRN (05:20)
[2016-10-28] MEDS: LANSOPRAZOLE 15 MG TAB.RAP.DR PO SCH (05:24)
[2016-10-28] MEDS: INSULIN LISPRO 100 UNIT/ML 3 ML VIAL SUBCUT SCH ×3 (09:57→15:47)
[2016-10-28] MEDS ORDERED: METOLAZONE 2.5 MG TABLET PO SCH (10:00)
[2016-10-28] MEDS: FERROUS SULFATE 325 MG TABLET PO SCH ×2 (10:04→17:51)
[2016-10-28] MEDS: CITALOPRAM HYDROBROMIDE 20 MG TABLET PO SCH (10:04)
[2016-10-28] MEDS: AMIODARONE HCL 200 MG TABLET PO SCH (10:04)
[2016-10-28] MEDS: APIXABAN 5 MG TABLET PO SCH ×2 (10:04→23:10)
[2016-10-28] MEDS: FUROSEMIDE 40 MG TABLET PO SCH (10:05)
[2016-10-28] MEDS: ACARBOSE 50 MG TABLET PO SCH ×3 (10:05→17:51)
[2016-10-28] MEDS: EZETIMIBE 10 MG TABLET PO SCH (10:05)
[2016-10-28] MEDS: METOPROLOL SUCCINATE 25 MG TAB.SR.24H PO SCH (10:05)
[2016-10-28] MEDS: NATEGLINIDE 60 MG TABLET PO SCH ×2 (10:05→17:51)
[2016-10-28] MEDS: DOCUSATE SODIUM 100 MG CAPSULE PO SCH ×2 (10:05→17:51)
[2016-10-28] MEDS: METHOCARBAMOL 500 MG TABLET PO SCH ×2 (10:05→23:05)
[2016-10-28] MEDS ORDERED: DIGOXIN INJ 0.5 MG/2 ML AMPULE IV ONE (11:30)
--- NOTE | 2016-10-28 12:30 | PDOC PROGRESS REPORT ---
Subjective Progress Note for:: 10/28/16 Subjective:: Patient is currently doing fair. Patient scheduled for the CT of the chest and abdomen and pelvis by Dr. Warren. Patient's start some physical therapy but still unable to walk much Patients the ankle x-ray was all negative Patients denied any chest pain denied any shortness of the breath Physical Exam Vital Signs: Temp Pulse Resp BP Pulse Ox 98.7 F 125 H 21 H 110/75 97 10/28/16 07:38 10/28/16 07:38 10/28/16 07:38 10/28/16 07:38 10/28/16 07:38 Intake & Output 10/27/16 10/28/16 10/29/16 06:59 06:59 06:59 Intake Total 1294 817 Output Total 1950 1350 Balance -656 -533 Weight 87.7 kg 87.3 kg General appearance: PRESENT: no acute distress, well-developed, well-nourished Head exam: PRESENT: atraumatic, normocephalic Eye exam: PRESENT: conjunctiva pink, EOMI, PERRLA. ABSENT: scleral icterus Ear exam: PRESENT: normal external ear exam Mouth exam: PRESENT: moist, tongue midline Neck exam: PRESENT: full ROM. ABSENT: carotid bruit, JVD, lymphadenopathy, thyromegaly Respiratory exam: PRESENT: clear to auscultation denita Cardiovascular exam: PRESENT: RRR. ABSENT: diastolic murmur, rubs, systolic murmur Pulses: PRESENT: normal dorsalis pedis pul, +2 pedal pulses bilateral Vascular exam: PRESENT: normal capillary refill GI/Abdominal exam: PRESENT: normal bowel sounds, soft. ABSENT: distended, guarding, mass, organolmegaly, rebound, tenderness Rectal exam: PRESENT: deferred Neurological exam: PRESENT: alert, awake, oriented to person, oriented to place , oriented to time, oriented to situation, CN II-XII grossly intact. ABSENT: motor sensory deficit Psychiatric exam: PRESENT: appropriate affect, normal mood. ABSENT: homicidal ideation, suicidal ideation Skin exam: PRESENT: dry, intact, warm. ABSENT: cyanosis, rash Results Laboratory Results: 10/28/16 04:20 10/28/16 04:20 10/28/16 10/28/16 04:20 04:20 WBC 10.1 RBC 4.41 Hgb 9.4 L Hct 30.6 L MCV 70 L MCH 21.4 L MCHC 30.8 L RDW 19.0 H Plt Count 195 Seg Neutrophils % 71.0 Lymphocytes % 12.3 L Monocytes % 14.7 H Eosinophils % 1.4 Basophils % 0.6 Absolute Neutrophils 7.2 Absolute Lymphocytes 1.2 Absolute Monocytes 1.5 H Absolute Eosinophils 0.1 Absolute Basophils 0.1 Sodium 137.5 Potassium 4.6 Chloride 102 Carbon Dioxide 23 Anion Gap 13 BUN 51 H Creatinine 2.07 H Est GFR ( Amer) 37 L Est GFR (Non-Af Amer) 31 L Glucose 94 Calcium 9.0 10/25/16 10/25/16 10/26/16 19:55 19:55 02:14 Creatine Kinase 72 61 CK-MB (CK-2) 2.04 Troponin I 0.019 NT-Pro-B Natriuret Pep 10/26/16 10/26/16 10/26/16 02:14 08:00 08:00 Creatine Kinase 45 L CK-MB (CK-2) 1.70 1.55 Troponin I 0.023 0.022 NT-Pro-B Natriuret Pep 10/26/16 08:00 Creatine Kinase CK-MB (CK-2) Troponin I NT-Pro-B Natriuret Pep 7440 H Impressions: Head CT 10/25/16 00:00 IMPRESSION: CHRONIC CHANGES OF ATROPHY AND MICROVASCULAR ISCHEMIA. NO ACUTE PROCESS. Chest X-Ray 10/25/16 13:06 IMPRESSION: Cardiomegaly. No acute consolidations or pleural effusions are identified. Shoulder X-Ray 10/25/16 13:06 IMPRESSION: No evidence for acute fracture or dislocation. There is bony sclerosis involving the scapula at the level of the glenoid and lateral portion of the scapula inferior to the glenoid. The differential possibilities would include metastatic disease or Paget's disease. Clinical correlation is recommended. Other findings as noted above. Body Scan Nuclear Medicine 10/26/16 08:32 IMPRESSION: AREAS OF ACTIVITY SECONDARY TO DEGENERATIVE JOINT DISEASE. NO FINDINGS CONCERNING FOR BONY METASTASES. Ankle X-Ray 10/27/16 00:00 IMPRESSION: No acute fracture or dislocation identified. Mild soft tissue swelling noted about the ankles. No radiopaque foreign body. Degenerative changes noted in both feet and ankle joints as described Assessment & Plan - Diagnosis (1) UTI (urinary tract infection) Qualifiers: Urinary tract infection type: acute cystitis Hematuria presence: without hematuria Qualified Code(s): N30.00 - Acute cystitis without hematuria Is this a current diagnosis for this admission?: YesPlan: Start the patient on IV antibiotic at the urine culture and blood culture (2) Atrial fibrillation Qualifiers: Atrial fibrillation type: chronic Qualified Code(s): I48.2 - Chronic atrial fibrillation Is this a current diagnosis for this admission?: YesPlan: Currently on Eliquis (3) Hypertension Qualifiers: Hypertension type: essential hypertension Qualified Code(s): I10 - Essential (primary) hypertension Is this a current diagnosis for this admission?: YesPlan: Continues to current medications (4) Anemia Qualifiers: Chronic kidney disease stage: stage 3 (moderate) Is this a current diagnosis for this admission?: YesPlan: From chronic kidney disease currently all stable (5) Bladder cancer Qualifiers: Bladder location: unspecified site Qualified Code(s): C67.9 - Malignant neoplasm of bladder, unspecified Is this a current diagnosis for this admission?: YesPlan: Currently all stable (6) Congestive heart failure Qualifiers: Congestive heart failure type: systolic Congestive heart failure chronicity: chronic Qualified Code(s): I50.22 - Chronic systolic ( congestive) heart failure Is this a current diagnosis for this admission?: YesPlan: Continues to Lasix we hold the Zaroxolyn (7) Acute on chronic renal failure Qualifiers: Acute renal failure type: unspecified 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 Qualified Code(s): N17.9 - Acute kidney failure, unspecified; N18.9 - Chronic kidney disease, unspecified Is this a current diagnosis for this admission?: YesPlan: Currently stable (8) Generalized weakness Is this a current diagnosis for this admission?: YesPlan: Continues to physical therapy (9) Coronary artery disease Qualifiers: Coronary Disease-Associated Artery/Lesion type: unspecified vessel or lesion type Is this a current diagnosis for this admission?: YesPlan: We will get the cardiac enzymes every 63 (10) Pacemaker Is this a current diagnosis for this admission?: YesPlan: Will order the interrogation of the pacemaker while the patient is here in consult the cardiology (11) Cellulitis and abscess of lower extremity Is this a current diagnosis for this admission?: YesPlan: We will get the IV antibiotic and will also get arterial Doppler for further evaluations for any PAD - Time Time Spent with patient: 15-24 minutes Medications reviewed and adjusted accordingly: Yes Anticipated discharge: SNF Within: Other - Inpatient Certification Medical Necessity: Need Close Monitoring Due to Risk of Patient Decompensation, Need for IV Antibiotics Post Hospital Care: D/C [employer] Policy Specialist Documentation - Plan Summary Plan Summary: Discussed with the very extensively of the daughter regarding the patient's conditions the test results
--- NOTE | 2016-10-28 12:34 | RADIOLOGY REPORT (SQ) ---
EXAM DESCRIPTION: CT CHEST WITHOUT COMPLETED DATE/TIME: 10/28/2016 11:55 am REASON FOR STUDY: acute renal (oral contrast only) COMPARISON: Chest x-ray dated 10/25/2016 TECHNIQUE: CT scan performed of the chest without intravenous contrast. Images reviewed with lung, soft tissue and bone windows. Reconstructed coronal and sagittal MPR images reviewed. All images st ored on PACS. All CT scanners at this facility use dose modulation, iterative reconstruction, and/or weight based d osing when appropriate to reduce radiation dose to as low as reasonably achievable (ALARA). [facility]: Dose Right [facility]: CareDose [facility]: Dose Right [facility]: Teradose 4D [facility]: Smart Periscope RADIATION DOSE: Up-to-date CT equipment and radiation dose reduction techniques were employed. CTDIv ol: 16.9 - 22.5 mGy. DLP: 1731 mGy-cm. mGy. LIMITATIONS: Study is limited somewhat due to artifact related to a left shoulder prosthesis in jag fact related to a transvenous pacemaker. FINDINGS: LUNGS AND PLEURA: A moderate size right and small left pleural effusions are identified. There is associated airspace consolidation especially on the right most consistent with atelectatic c hanges although I cannot exclude pneumonic consolidations. HILAR AND MEDIASTINAL STRUCTURES: No identified masses or abnormal nodes. No obvious aneurysm. HEART AND VASCULAR STRUCTURES: No aneurysm. No pericardial effusion. Tortuous thoracic aorta is nan ntified with vascular calcifications UPPER ABDOMEN: See results under abdominal CT scan THYROID AND OTHER SOFT TISSUES: No masses. No adenopathy. BONES: No significant finding. HARDWARE: Transvenous pacemaker is identified. OTHER: No other significant findings. IMPRESSION: A moderate size right and small left pleural effusions are identified. There is associa eve airspace consolidation especially on the right most consistent with atelectatic changes although I cannot exclude pneumonic consolidations. Other findings as noted above. TECHNICAL DOCUMENTATION: JOB ID: [id number] Quality ID # [id number]: Final reports with documentation of one or more dose reduction techniques (e.g., Au tomated exposure control, adjustment of the mA and/or kV according to patient size, use of iterative reconstruction technique) 2010 [employer]- All Rights Reserved
--- NOTE | 2016-10-28 12:43 | RADIOLOGY REPORT (SQ) ---
EXAM DESCRIPTION: CT ABD/PELVIS ORAL ONLY COMPLETED DATE/TIME: 10/28/2016 11:55 am REASON FOR STUDY: acute renal COMPARISON: Abdominal and pelvic CT scan dated January 2011 TECHNIQUE: CT scan of the abdomen and pelvis performed without intravenous but with oral contrast. I mages reviewed with lung, soft tissue, and bone windows. Reconstructed coronal and sagittal MPR image s reviewed. All images stored on PACS. All CT scanners at this facility use dose modulation, iterative reconstruction, and/or weight based d osing when appropriate to reduce radiation dose to as low as reasonably achievable (ALARA). [facility]: Dose Right [facility]: CareDose [facility]: Dose Right [facility]: Teradose 4D [facility]: Smart Technologies RADIATION DOSE: mGy. LIMITATIONS: Study is limited due to artifact related to the patient's arms. FINDINGS: LOWER CHEST: See results under chest CT scan NON-CONTRASTED LIVER, SPLEEN, ADRENALS: Evaluation limited by lack of IV contrast. No identified sign ificant masses. PANCREAS: No masses. No peripancreatic inflammatory changes. GALLBLADDER: There is some minimal increased density in the dependent portion of the gallbladder lume n which could represent biliary sludge or tiny gallstones. No inflammatory changes to suggest cholecy stitis. RIGHT KIDNEY AND URETER: No suspicious masses. Assessment limited by lack of IV contrast. No signif icant calcifications. No hydronephrosis or hydroureter. LEFT KIDNEY AND URETER: No suspicious masses. Assessment limited by lack of IV contrast. No signifi cant calcifications. No hydronephrosis or hydroureter. AORTA AND RETROPERITONEUM: No aneurysm. There is mild ectasia of the abdominal aorta with vascular c alcifications. No retroperitoneal masses or adenopathy. BOWEL AND PERITONEAL CAVITY: No obvious masses or inflammatory changes. No free fluid. A moderate am ount of fecal material is identified throughout the colon. APPENDIX: Normal. PELVIS, BLADDER, AND ABDOMINAL WALL:No abnormal masses. No free fluid. Suprapubic catheter is identi fied within the bladder. There is some thickening of the reid of the bladder presumably related to its decompressed state. BONES: No significant findings. OTHER: There is soft tissue stranding in the subcutaneous fat just inferior to the suprapubic cathete r in the pelvis anteriorly which could represent edematous or inflammatory changes. There is also so me thickening of the reid of bilateral inguinal hernias containing fat. IMPRESSION: NO ACUTE PROCESS IN THE ABDOMEN OR PELVIS. Other findings as noted above TECHNICAL DOCUMENTATION: JOB ID: [id number] Quality ID # [id number]: Final reports with documentation of one or more dose reduction techniques (e.g., Au tomated exposure control, adjustment of the mA and/or kV according to patient size, use of iterative reconstruction technique) 2010 [employer]- All Rights Reserved
--- NOTE | 2016-10-28 14:19 | PROGRESS NOTE E ---
Progress Note NAME: DAREK SIMON : 1935 AGE: 81Y DATE: 10/28/2016 ROOM: 315 SUBJECTIVE: Note that the patient denies any chest pain or discomfort. There is no shortness of breath. There is no PND or orthopnea. His pain in the left ankle still persists. His cellulitis, left greater than right lower extremity is slightly better. He has edema of both feet, left more than right and also he has edema of the right upper extremity and also the chest wall. He is getting a CAT scan for this. He denies any PND, orthopnea, dizziness, syncope, or near syncope. There is no fevers, chills, or rigors. There are no TIA or CVA symptoms. There is no bleeding on Eliquis. The patient seems to be in atrial fibrillation with a ventricular paced rhythm since I do not see any P waves. The ventricular paced rhythm is 125 beats per minute. OBJECTIVE: GENERAL: On examination, the patient is mildly obese, at present, appears to be older than his stated age, he appears to be chronically ill. VITAL SIGNS: He is afebrile with a temperature of 98.7 degrees Fahrenheit, pulse is 125 beats per minute, blood pressure is 110/75, respirations of 21 beats per minute, O2 sats are 97% on room. HEAD: Atraumatic, normocephalic. EYES: Pupils are equal, round, regular, and reactive to light. Extraocular movements are normal. Sclerae are without any icterus. Conjunctivae pink. EARS, NOSE, THROAT: Negative for any pathology. NECK: Supple without lymphadenopathy. Trachea is central. There is no cervical or axillary lymphadenopathy. Carotids are 2+ without any bruits. JVD is within normal limits. LUNGS: Respiration seems nonlabored. Breath sounds are clear to auscultation bilaterally and equal. There is no wheezing, rales, or rhonchi noted. There is no significant dullness noted on percussion. CHEST WALL: Palpation shows no tenderness. He also has swelling of his chest wall, which is edematous and also there seems to be a seroma of the pacemaker site. HEART: S1 and S2 are heard. S1 is of variable intensity. There is no S3 gallop. There is no S4 gallop. There is a systolic murmur in the left sternal border and the apex. There is no rub. ABDOMEN: Soft. There is no hepatosplenomegaly. Bowel sounds are well heard. There are no masses appreciated. The patient has a suprapubic cystostomy catheter in situ. EXTREMITIES: The patient has cellulitis of his lower extremities, left greater than right, which is slightly better. He has swelling of both feet. He also has swelling of the right upper extremity. NEUROLOGIC: The patient is conscious, awake, alert, moves all 4 extremities, but has severe pain in the left ankle. PSYCHIATRIC: The patient does not appear to be agitated or depressed. INTAKE/OUTPUT: The patient's 24-hour intake is 817 mL; output is 1,350 mL. DIAGNOSTIC DATA: The patient's white count is 10,100; hemoglobin is 9.4; hematocrit is 30.6; platelet count is 195,000. The patient's sodium is 137.5, potassium is 4.6, chloride is 102, CO2 is 23. The patient's BUN is 55, creatinine is 2.07. His GFR is reduced at 31, which is slightly improved from yesterday and is stage 3 now, from stage 4 chronic kidney disease. His glucose is 103. His calcium is 9.0. IMPRESSION: 1. CORONARY ARTERY DISEASE. THE PATIENT HAS NO ANGINAL SYMPTOMS. THE PATIENT IS SYMPTOMATICALLY STABLE. 2. GENERALIZED WEAKNESS. 3. DUAL-CHAMBER PACEMAKER PLACEMENT. IT IS AN MRI [employer] PACEMAKER. 4. CELLULITIS OF THE LOWER EXTREMITIES, LEFT GREATER THAN RIGHT. CONTINUE ANTIBIOTICS. THERE IS SLIGHT IMPROVEMENT. 5. HYPERTENSION. BLOOD PRESSURE SEEMS TO BE WELL CONTROLLED. 6. TACHYCARDIA, MOST LIKELY SECONDARY TO ATRIAL FIBRILLATION WITH THE PACEMAKER PACING AT A HIGHER RATE. Continue amiodarone. Will also give a dose of digoxin to see if this will bring the heart rate down. 7. URINARY TRACT INFECTION. THIS IS ASSOCIATED WITH ACUTE CYSTITIS WITHOUT HEMATURIA. Patient on antibiotics. 8. ATRIAL FIBRILLATION WITH SLIGHTLY FAST VENTRICULAR RESPONSE. The patient is on amiodarone and Eliquis, continue these. Note that the patient is status post pacemaker placement; this is an antitachycardia pacing pacemaker (ATP). The pacemaker seems to be functioning normally. It seems to have some seroma, but no infection. 9. CELLULITIS OF THE LOWER EXTREMITY, LEFT GREATER THAN RIGHT. Continue antibiotics. 10. SLEEP APNEA SYNDROME. Patient to use nightly CPAP. 11. CHRONIC KIDNEY DISEASE, AT PRESENT STAGE 3, IMPROVED FROM STAGE 4 YESTERDAY. 12. DIABETES MELLITUS WITH CHRONIC KIDNEY DISEASE. 13. DEPRESSION. 14. LEFT ANKLE SPRAIN. RECOMMENDATIONS: Continue the patient on antibiotics. Continue amiodarone, may need to increase it. Continue Eliquis. Continue dextrose p.r.n. for hypoglycemia. Continue atorvastatin and Zetia. Continue Lasix 40 mg p.o. daily. Continue insulin coverage and also Humalog insulin 5 units subcutaneously before meals. Continue ipratropium 3 mL nebulizer treatment q. 6 hours p.r.n. Continue metoprolol succinate at 12.5 mg p.o. daily. Continue Starlix at 60 mg b.i.d. before meals *------*. The patient also is on nitroglycerin 1 tablet sublingually q. 5 minutes p.r.n. Note, all medications have been reviewed. I discussed with the patient and the patient's daughter. In view of the patient's tachycardia, I will get thyroid function tests. Note, 30 minutes were spent on this patient with more than 50% of the time spent in direct patient care. This was a *------* complex decision making case due to multiple comorbidities and also the patient's tachycardia. Before we decide to increase the patient's amiodarone, we will get liver function tests and thyroid function test to make sure that the patient is not hyperthyroid. Note that 50% of the time was spent in direct patient care and also discussions with other caregiving providers on the case. Note that the patient had a CT scan yesterday of his chest. There is moderate-sized right and small left pleural effusion identified. There is associate air-space consolidation, especially on the right, most consistent with atelectatic changes, also I cannot exclude pneumonic consolidation. Note that the patient is already on antibiotics and the daughter is making the patient take good deep breaths. As mentioned earlier, we will check thyroid function tests. DICTATING PHYSICIAN: SUNSHINE GUPTA M.D. [id number] PHY#: [id number] ID: [id number] JOB#: [id number] ACCT: [id number] cc: >
[2016-10-28] MEDS ORDERED: ONDANSETRON HCL INJ/PF 4 MG/2 ML SDV IV PRN (14:55)
[2016-10-28 15:39] LABS: ALBUMIN 3 2.8 g/dL (2.9-4.4); ALPHA-1-GLOBULIN 0.3 g/dL (0.0-0.4); ALPHA-2-GLOBULIN 3 0.7 g/dL (0.4-1.0); GLOBULIN TTL 3.2 g/dL (2.2-3.9); IMMUNOGLOBULIN A 482 mg/dL (61-437); IMMUNOGLOBULIN G 1392 mg/dL (700-1600); IMMUNOGLOBULIN M 100 mg/dL (15-143); MONOCLONAL-SPIKE Not Observed g/dL (Not Observed)
[2016-10-28] MEDS: ATORVASTATIN CALCIUM 20 MG TABLET PO SCH (23:04)
[2016-10-28] MEDS: INSULIN GLARGINE,HUM.REC.ANLOG 300 UNIT/3 ML INSULN.PEN SUBCUT SCH (23:04)
[2016-10-28] MEDS: CEFEPIME HCL 1 GM in DEXTROSE 5%-WATER 50 ML IV SCH (23:05)
--- NOTE | 2016-10-29 02:19 | PDOC PROGRESS REPORT ---
Subjective Progress Note for:: 10/29/16 Subjective:: Less pain in the lower extremities but still with cool extremities. Today also with RUE edema. Physical Exam Vital Signs: Temp Pulse Resp BP Pulse Ox 98.5 F 123 H 20 118/76 96 10/28/16 16:00 10/28/16 16:00 10/28/16 16:00 10/28/16 16:00 10/28/16 16:00 Intake & Output 10/27/16 10/28/16 10/29/16 06:59 06:59 06:59 Intake Total 3537 656 3883 Output Total 9561 1350 1125 Balance -656 -533 49 Weight 87.7 kg 87.3 kg Head exam: PRESENT: atraumatic, normocephalic Eye exam: PRESENT: EOMI, PERRLA Ear exam: PRESENT: normal external ear exam Respiratory exam: PRESENT: clear to auscultation denita Cardiovascular exam: PRESENT: irregular rhythm Neurological exam: PRESENT: alert, CN II-XII grossly intact Results Laboratory Results: 10/28/16 04:20 10/28/16 04:20 10/28/16 10/28/16 04:20 04:20 WBC 10.1 RBC 4.41 Hgb 9.4 L Hct 30.6 L MCV 70 L MCH 21.4 L MCHC 30.8 L RDW 19.0 H Plt Count 195 Seg Neutrophils % 71.0 Lymphocytes % 12.3 L Monocytes % 14.7 H Eosinophils % 1.4 Basophils % 0.6 Absolute Neutrophils 7.2 Absolute Lymphocytes 1.2 Absolute Monocytes 1.5 H Absolute Eosinophils 0.1 Absolute Basophils 0.1 Sodium 137.5 Potassium 4.6 Chloride 102 Carbon Dioxide 23 Anion Gap 13 BUN 51 H Creatinine 2.07 H Est GFR ( Amer) 37 L Est GFR (Non-Af Amer) 31 L Glucose 94 Calcium 9.0 10/25/16 10/25/16 10/26/16 19:55 19:55 02:14 Creatine Kinase 72 61 CK-MB (CK-2) 2.04 Troponin I 0.019 NT-Pro-B Natriuret Pep 10/26/16 10/26/16 10/26/16 02:14 08:00 08:00 Creatine Kinase 45 L CK-MB (CK-2) 1.70 1.55 Troponin I 0.023 0.022 NT-Pro-B Natriuret Pep 10/26/16 08:00 Creatine Kinase CK-MB (CK-2) Troponin I NT-Pro-B Natriuret Pep 7440 H Impressions: Head CT 10/25/16 00:00 IMPRESSION: CHRONIC CHANGES OF ATROPHY AND MICROVASCULAR ISCHEMIA. NO ACUTE PROCESS. Chest X-Ray 10/25/16 13:06 IMPRESSION: Cardiomegaly. No acute consolidations or pleural effusions are identified. Shoulder X-Ray 10/25/16 13:06 IMPRESSION: No evidence for acute fracture or dislocation. There is bony sclerosis involving the scapula at the level of the glenoid and lateral portion of the scapula inferior to the glenoid. The differential possibilities would include metastatic disease or Paget's disease. Clinical correlation is recommended. Other findings as noted above. Body Scan Nuclear Medicine 10/26/16 08:32 IMPRESSION: AREAS OF ACTIVITY SECONDARY TO DEGENERATIVE JOINT DISEASE. NO FINDINGS CONCERNING FOR BONY METASTASES. Abdomen/Pelvis CT 10/27/16 00:00 IMPRESSION: NO ACUTE PROCESS IN THE ABDOMEN OR PELVIS. Other findings as noted above Ankle X-Ray 10/27/16 00:00 IMPRESSION: No acute fracture or dislocation identified. Mild soft tissue swelling noted about the ankles. No radiopaque foreign body. Degenerative changes noted in both feet and ankle joints as described Chest CT 10/27/16 00:00 IMPRESSION: A moderate size right and small left pleural effusions are identified. There is associated airspace consolidation especially on the right most consistent with atelectatic changes although I cannot exclude pneumonic consolidations. Other findings as noted above. Assessment & Plan - Diagnosis (1) Acute on chronic renal failure Qualifiers: Acute renal failure type: unspecified 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 Qualified Code(s): N17.9 - Acute kidney failure, unspecified; N18.9 - Chronic kidney disease, unspecified Is this a current diagnosis for this admission?: YesPlan: Stable and managed per his primary team. (2) Anemia Qualifiers: Chronic kidney disease stage: stage 3 (moderate) Is this a current diagnosis for this admission?: YesPlan: Treated with IV iron (3) Atrial fibrillation Qualifiers: Atrial fibrillation type: chronic Qualified Code(s): I48.2 - Chronic atrial fibrillation Is this a current diagnosis for this admission?: Yes (4) Bladder cancer Qualifiers: Bladder location: unspecified site Qualified Code(s): C67.9 - Malignant neoplasm of bladder, unspecified Is this a current diagnosis for this admission?: YesPlan: So far no evidence of recurrent disease. Would check an US of the RUE due to edema (5) Generalized weakness Is this a current diagnosis for this admission?: Yes - Time Time Spent with patient: 25-34 minutes Critical Time spent with patient: 15-24 minutes
[2016-10-29 05:03] LABS: HEMATOCRIT 31.2 % (37.9-51.0); HEMOGLOBIN 9.6 g/dL (13.5-17.0); HGB HCT DIFFERENCE -2.4; MEAN CORPUSCULAR HEMOGLOBIN 21.2 pg (27.0-33.4); MEAN CORPUSCULAR HGB CONC 30.8 g/dL (32.0-36.0); MEAN CORPUSCULAR VOLUME 69 fl (80-97); RED BLOOD COUNT 4.53 10^6/uL (4.35-5.55); RED CELL DISTRIBUTION WIDTH 18.3 % (11.5-14.0); WHITE BLOOD COUNT 9.7 10^3/uL (4.0-10.5)
[2016-10-29 05:30] LABS: ALANINE AMINOTRANSFERASE 24 U/L (21-72); ALBUMIN 2.6 g/dL (3.5-5.0); ALKALINE PHOSPHATASE 204 U/L (38-126); ANION GAP 12 (5-19); ASPARTATE AMINO TRANSFERASE 23 U/L (17-59); BILIRUBIN,DIRECT 0.8 mg/dL (0.0-0.4); BLOOD UREA NITROGEN 55 mg/dL (7-20); CALCIUM 8.9 mg/dL (8.4-10.2); CARBON DIOXIDE 22 mmol/L (22-30); CHLORIDE 101 mmol/L (98-107); CREATININE RESULT 2.28 mg/dL (0.52-1.25); GLUCOSE 144 mg/dL (75-110); POTASSIUM 4.5 mmol/L (3.6-5.0)
[2016-10-29 05:41] LABS: FREE T3 2.14 pg/mL (2.77-5.27)
[2016-10-29 05:55] LABS: THYROID STIMULATING HORMONE 3.06 uIU/mL (0.47-4.68)
[2016-10-29] MEDS: LANSOPRAZOLE 15 MG TAB.RAP.DR PO SCH (05:55)
[2016-10-29] MEDS: INSULIN LISPRO 100 UNIT/ML 3 ML VIAL SUBCUT SCH ×3 (09:45→15:24)
[2016-10-29] MEDS: APIXABAN 5 MG TABLET PO SCH (09:58)
[2016-10-29] MEDS: AMIODARONE HCL 200 MG TABLET PO SCH ×2 (09:58→21:30)
[2016-10-29] MEDS: EZETIMIBE 10 MG TABLET PO SCH (09:58)
[2016-10-29] MEDS: ACARBOSE 50 MG TABLET PO SCH ×3 (09:59→17:18)
[2016-10-29] MEDS: NATEGLINIDE 60 MG TABLET PO SCH ×2 (09:59→15:33)
[2016-10-29] MEDS: METOPROLOL SUCCINATE 25 MG TAB.SR.24H PO SCH (10:00)
[2016-10-29] MEDS: FERROUS SULFATE 325 MG TABLET PO SCH ×2 (10:00→17:17)
[2016-10-29] MEDS: CITALOPRAM HYDROBROMIDE 20 MG TABLET PO SCH (10:00)
[2016-10-29] MEDS: DOCUSATE SODIUM 100 MG CAPSULE PO SCH ×2 (10:00→17:18)
[2016-10-29] MEDS: METHOCARBAMOL 500 MG TABLET PO SCH ×2 (10:00→21:29)
--- NOTE | 2016-10-29 11:01 | RADIOLOGY REPORT (SQ) ---
EXAM DESCRIPTION: HIP BILATERAL COMPLETED DATE/TIME: 10/29/2016 9:13 am REASON FOR STUDY: hip pain COMPARISON: Lumbar spine films same date CT abdomen pelvis 10/28/2016 NUMBER OF VIEWS: Two views. TECHNIQUE: AP pelvis and additional frog-leg view of the right and left hip. LIMITATIONS: None. FINDINGS: MINERALIZATION: Osteopenic RIGHT HIP: No fracture or dislocation. No worrisome bone lesions. LEFT HIP: No fracture or dislocation. No worrisome bone lesions. PUBIS AND ISCHIUM: No fracture. PELVIS: No fracture. SACRUM: No fracture or dislocation. No worrisome bone lesions. LOWER LUMBAR SPINE: Multilevel advanced degenerative disc changes. Review of prior CT exam 10/28/2016 demonstrates multilevel central canal stenosis. SOFT TISSUES: No findings. OTHER: No other significant finding. IMPRESSION: No acute fracture. No significant right or left hip joint space narrowing or bony spurr ing. Degenerative changes lower lumbar spine, prior CT demonstrates multilevel central canal stenosis. TECHNICAL DOCUMENTATION: JOB ID: [id number] [employer]- All Rights Reserved
[2016-10-29] MEDS ORDERED: APIXABAN 5 MG TABLET PO SCH (11:02)
--- NOTE | 2016-10-29 11:02 | PDOC PROGRESS REPORT ---
Subjective Progress Note for:: 10/29/16 Subjective:: Patient is currently doing fair. Patient still unable to walk patient still feeling very weak. Patient was CT chest and CT abdomen and pelvis and the CT chest shows the bilateral pleural effusion and CT abdomen and pelvis was all stable Patients denied any chest pain denied any shortness of the breath Patient still complaining of her leg pain Physical Exam Vital Signs: Temp Pulse Resp BP Pulse Ox 97.7 F 131 H 20 111/80 100 10/29/16 07:12 10/29/16 07:12 10/29/16 07:12 10/29/16 07:12 10/29/16 07:12 Intake & Output 10/28/16 10/29/16 10/30/16 06:59 06:59 06:59 Intake Total 817 1818 Output Total 1350 2075 Balance -533 -257 Weight 87.3 kg 86.3 kg General appearance: PRESENT: no acute distress, well-developed, well-nourished Head exam: PRESENT: atraumatic, normocephalic Eye exam: PRESENT: conjunctiva pink, EOMI, PERRLA. ABSENT: scleral icterus Ear exam: PRESENT: normal external ear exam Mouth exam: PRESENT: moist, tongue midline Neck exam: PRESENT: full ROM. ABSENT: carotid bruit, JVD, lymphadenopathy, thyromegaly Respiratory exam: PRESENT: clear to auscultation denita Cardiovascular exam: PRESENT: RRR. ABSENT: diastolic murmur, rubs, systolic murmur Pulses: PRESENT: normal dorsalis pedis pul, +2 pedal pulses bilateral Vascular exam: PRESENT: normal capillary refill GI/Abdominal exam: PRESENT: normal bowel sounds, soft. ABSENT: distended, guarding, mass, organolmegaly, rebound, tenderness Rectal exam: PRESENT: deferred Neurological exam: PRESENT: alert, awake, oriented to person, oriented to place , oriented to time, oriented to situation, CN II-XII grossly intact. ABSENT: motor sensory deficit Psychiatric exam: PRESENT: appropriate affect, normal mood. ABSENT: homicidal ideation, suicidal ideation Skin exam: PRESENT: dry, intact, warm. ABSENT: cyanosis, rash Results Laboratory Results: 10/29/16 04:31 10/29/16 04:31 10/26/16 10/29/16 10/29/16 08:00 04:31 04:31 WBC RBC Hgb Hct MCV MCH MCHC RDW Plt Count Sodium 135.0 L Potassium 4.5 Chloride 101 Carbon Dioxide 22 Anion Gap 12 BUN 55 H Creatinine 2.28 H Est GFR ( Amer) 33 L Est GFR (Non-Af Amer) 28 L Glucose 144 H Calcium 8.9 Total Bilirubin 1.0 AST 23 ALT 24 Alkaline Phosphatase 204 H Total Protein 6.0 6.0 L Albumin 2.8 L 2.6 L TSH 3.06 Free T4 2.45 H Free T3 pg/mL 2.14 L 10/29/16 04:31 WBC 9.7 RBC 4.53 Hgb 9.6 L Hct 31.2 L MCV 69 L MCH 21.2 L MCHC 30.8 L RDW 18.3 H Plt Count 222 Sodium Potassium Chloride Carbon Dioxide Anion Gap BUN Creatinine Est GFR ( Amer) Est GFR (Non-Af Amer) Glucose Calcium Total Bilirubin AST ALT Alkaline Phosphatase Total Protein Albumin TSH Free T4 Free T3 pg/mL 10/25/16 10/25/16 10/26/16 19:55 19:55 02:14 Creatine Kinase 72 61 CK-MB (CK-2) 2.04 Troponin I 0.019 NT-Pro-B Natriuret Pep 10/26/16 10/26/16 10/26/16 02:14 08:00 08:00 Creatine Kinase 45 L CK-MB (CK-2) 1.70 1.55 Troponin I 0.023 0.022 NT-Pro-B Natriuret Pep 10/26/16 08:00 Creatine Kinase CK-MB (CK-2) Troponin I NT-Pro-B Natriuret Pep 7440 H Impressions: Head CT 10/25/16 00:00 IMPRESSION: CHRONIC CHANGES OF ATROPHY AND MICROVASCULAR ISCHEMIA. NO ACUTE PROCESS. Chest X-Ray 10/25/16 13:06 IMPRESSION: Cardiomegaly. No acute consolidations or pleural effusions are identified. Shoulder X-Ray 10/25/16 13:06 IMPRESSION: No evidence for acute fracture or dislocation. There is bony sclerosis involving the scapula at the level of the glenoid and lateral portion of the scapula inferior to the glenoid. The differential possibilities would include metastatic disease or Paget's disease. Clinical correlation is recommended. Other findings as noted above. Body Scan Nuclear Medicine 10/26/16 08:32 IMPRESSION: AREAS OF ACTIVITY SECONDARY TO DEGENERATIVE JOINT DISEASE. NO FINDINGS CONCERNING FOR BONY METASTASES. Abdomen/Pelvis CT 10/27/16 00:00 IMPRESSION: NO ACUTE PROCESS IN THE ABDOMEN OR PELVIS. Other findings as noted above Ankle X-Ray 10/27/16 00:00 IMPRESSION: No acute fracture or dislocation identified. Mild soft tissue swelling noted about the ankles. No radiopaque foreign body. Degenerative changes noted in both feet and ankle joints as described Chest CT 10/27/16 00:00 IMPRESSION: A moderate size right and small left pleural effusions are identified. There is associated airspace consolidation especially on the right most consistent with atelectatic changes although I cannot exclude pneumonic consolidations. Other findings as noted above. Assessment & Plan - Diagnosis (1) UTI (urinary tract infection) Qualifiers: Urinary tract infection type: acute cystitis Hematuria presence: without hematuria Qualified Code(s): N30.00 - Acute cystitis without hematuria Is this a current diagnosis for this admission?: YesPlan: Start the patient on IV antibiotic at the urine culture and blood culture (2) Atrial fibrillation Qualifiers: Atrial fibrillation type: chronic Qualified Code(s): I48.2 - Chronic atrial fibrillation Is this a current diagnosis for this admission?: YesPlan: Will cut down the Eliquis dose from 5 mg to 2.5 mg due to the patient H and a chronic kidney disease as per discussed with the Dr. Warren (3) Hypertension Qualifiers: Hypertension type: essential hypertension Qualified Code(s): I10 - Essential (primary) hypertension Is this a current diagnosis for this admission?: YesPlan: Continues to current medications (4) Anemia Qualifiers: Chronic kidney disease stage: stage 3 (moderate) Is this a current diagnosis for this admission?: YesPlan: From chronic kidney disease currently all stable (5) Bladder cancer Qualifiers: Bladder location: unspecified site Qualified Code(s): C67.9 - Malignant neoplasm of bladder, unspecified Is this a current diagnosis for this admission?: YesPlan: Currently all stable (6) Congestive heart failure Qualifiers: Congestive heart failure type: systolic Congestive heart failure chronicity: chronic Qualified Code(s): I50.22 - Chronic systolic ( congestive) heart failure Is this a current diagnosis for this admission?: YesPlan: With the pleural effusions bilaterally will increase the from p.o. to IV Lasix (7) Acute on chronic renal failure Qualifiers: Acute renal failure type: unspecified 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 Qualified Code(s): N17.9 - Acute kidney failure, unspecified; N18.9 - Chronic kidney disease, unspecified Is this a current diagnosis for this admission?: YesPlan: Currently stable (8) Generalized weakness Is this a current diagnosis for this admission?: YesPlan: Still weak discussed with the patient's to at least get a physical therapy will get the x-ray of the LS spine and the hip (9) Coronary artery disease Qualifiers: Coronary Disease-Associated Artery/Lesion type: unspecified vessel or lesion type Is this a current diagnosis for this admission?: YesPlan: We will get the cardiac enzymes every 63 (10) Pacemaker Is this a current diagnosis for this admission?: YesPlan: Will order the interrogation of the pacemaker while the patient is here in consult the cardiology (11) Cellulitis and abscess of lower extremity Is this a current diagnosis for this admission?: YesPlan: We will get the IV antibiotic and will also get arterial Doppler for further evaluations for any PAD - Time Time Spent with patient: 15-24 minutes Medications reviewed and adjusted accordingly: Yes Anticipated discharge: SNF Within: Other - Inpatient Certification Medical Necessity: Need Close Monitoring Due to Risk of Patient Decompensation, Need for IV Antibiotics Post Hospital Care: D/C Telecom Manager Documentation - Plan Summary Plan Summary: Discussed with the patient and the daughter on the bedside about the patient's current conditions and will get the physical therapy x-ray
--- NOTE | 2016-10-29 11:03 | RADIOLOGY REPORT (SQ) ---
EXAM DESCRIPTION: L SPINE 2 VIEWS COMPLETED DATE/TIME: 10/29/2016 9:13 am REASON FOR STUDY: leg pain COMPARISON: CT abdomen pelvis 10/28/2016 Lumbar spine films 01/29/2011 NUMBER OF VIEWS: Two views. TECHNIQUE: AP and lateral radiographic images acquired of the lumbar spine. LIMITATIONS: Oral contrast for CT is seen in the colon. FINDINGS: MINERALIZATION: Osteoporotic SEGMENTATION: Normal. No transitional anatomy. ALIGNMENT: Convex rightward degenerative lumbar curvature from multilevel degenerative disc changes. VERTEBRAE: Maintained height. No fracture or worrisome bone lesion. DISCS: High-grade disc space loss of height at L3-4 and L5-S1. POSTERIOR ELEMENTS: Pedicles and facets are intact. No pars defect or posterior arch defects. Bulky facet arthropathy at L4-5 and L5-S1. HARDWARE: None in the spine. PARASPINAL SOFT TISSUES: Normal. PELVIS: Intact as visualized. No fractures or worrisome bone lesions. SI joints intact. OTHER: No other significant finding. IMPRESSION: Multilevel degenerative disc changes, progressive since plain films in 2010 TECHNICAL DOCUMENTATION: JOB ID: [id number]- All Rights Reserved
[2016-10-29] MEDS: FUROSEMIDE INJ/PF 20 MG/2 ML SDV IV SCH ×2 (13:25→21:30)
--- NOTE | 2016-10-29 14:13 | PROGRESS NOTE E ---
Progress Note NAME: DAREK SIMON : 1935 AGE: 81Y DATE: 10/29/2016 ROOM: 315 SUBJECTIVE: Note that the patient states that his left ankle pain is much less. He still has some mild edema in both lower extremities and cellulitis seems to be much improved, still having right lower extremity cellulitis left in the left lower extremity. There are also excoriations and superficial abscess in both legs. He still has some edema in the right upper extremity, which is much less. The patient denies any chest pain or discomfort. There is no PND, orthopnea. The patient denies any palpitations, but the patient's ventricular paced rhythm is at a rate of 129, underlying rhythm being atrial fibrillation/flutter. The patient denies any TIA or CVA symptoms. There is no bleeding on Eliquis. There is no syncope. OBJECTIVE: GENERAL: The patient is mildly obese and appears to be chronically ill. VITAL SIGNS: He is afebrile with a temperature of 98.4 degrees Fahrenheit, pulse is 129 beats per minute, it is ventricular paced, blood pressure is 114/84, respirations are 16 per minute, O2 saturations are 100% on room air. HEAD: Atraumatic, normocephalic. EYES: Pupils are equal, round, regular, reactive to light and accommodation. Extraocular movements are normal. Sclerae are without any icterus. Conjunctiva is pink. ENT: Negative for any pathology. NECK: Supple without lymphadenopathy. Trachea is central. There is no cervical or axillary lymphadenopathy. Carotids are 2+ without any bruits. JVD is within normal limits. LUNGS: Respiration seems nonlabored. Breath sounds are clear to auscultation bilaterally and equal except for some dullness in the right base. There is no wheezing, rales, or rhonchi noted. There are no axillary muscles of respiration in use. CHEST WALL: No tenderness. He has some mild edema of the chest wall, which is much less. He also has a seroma pocket of the pacemaker, but no infection or redness. HEART: S1 and S2 are heard. S1 is of variable intensity. There is no S3 gallop. There is no S4 gallop. There is a systolic murmur in the left sternal border and the apex. There is no rub. ABDOMEN: Soft. There is no hepatosplenomegaly. Bowel sounds are well heard. There are no masses appreciated. The patient has a suprapubic cystostomy catheter in situ. EXTREMITIES: The patient has cellulitis of his lower extremities, left greater than right, which is improved. He has swelling of both feet. He also has swelling of the right upper extremity. He has some superficial ulcers of both lower extremities. There is bruising in the right upper extremity and the left upper extremity and in both lower extremities. There is no cyanosis or clubbing. The lower extremities are cool to touch. NEUROLOGICAL: The patient is conscious, awake, alert, oriented x3, moves all 4 extremities, but has much less pain in the left ankle. Also, left ankle is less swollen and less red than yesterday. PSYCHIATRIC: The patient does not appear to be agitated or depressed. His judgment and insight seem to be intact. IMAGING: The patient had lumbar spine x-ray due to back pain that shows multilevel degenerative disk disease changes progressive since plain films in 2010. His hip x-ray shows no acute fracture, no significant right or left hip joint space narrowing or bony spurring. Degenerative changes lower lumbar spine. Prior CT demonstrated multilevel central canal stenosis. LABORATORY: The patient's white count is 9700, hemoglobin is 9.6, hematocrit is 31.2, and the platelet count is 222,000. The patient's sodium is 135, potassium 4.5, chloride 101, CO2 is 22. The patient's BUN is 55, creatinine is 2.28. Estimated GFR is 28 mL, which is chronic kidney disease stage 4. This has progressed from CKD stage 3 yesterday. The patient's liver function tests show a slightly elevated direct bilirubin of 0.8 and elevated Alk phos of 204. Rest of the liver function is normal. The patient's albumin is 2.6. His total protein is 6.0. The patient's TSH is 3.06. His free T3 is slightly low at 2.14, his free T4 is slightly high at 2.45 with upper limits being 2.19. His glucose is 144 and his calcium is 8.9. The patient's white count is 9700, hemoglobin is 9.6, hematocrit is 31.2, and platelet count is 222,000. IMPRESSION: 1. CORONARY ARTERY DISEASE. PATIENT HAS NO ANGINAL SYMPTOMS. THE PATIENT IS SYMPTOMATICALLY STABLE. 2. GENERALIZED WEAKNESS. 3. DUAL CHAMBER PACEMAKER PLACEMENT. IT IS AN MRI SURESCAN [employer] PACEMAKER WITH NOW THE PATIENT'S UNDERLYING RHYTHM BEING ATRIAL FIBRILLATION/FLUTTER (PVA IS NOT SEEN) AND VENTRICULAR-PACED RHYTHM. 4. CELLULITIS OF THE LOWER EXTREMITIES, LEFT GREATER THAN RIGHT, SLIGHTLY IMPROVED. 5. HYPERTENSION. BLOOD PRESSURE SEEMS TO BE WELL CONTROLLED. 6. TACHYCARDIA, MOST LIKELY SECONDARY TO ATRIAL FIBRILLATION/ATRIAL FLUTTER AND THE PACEMAKER PACING AT A HIGH RATE. Continue the present dose of amiodarone. Will increase the amiodarone to 200 mg p.o. b.i.d. since there is no definite evidence of hypo or hyperthyroidism. The patient has lab work of TFT's suggestive of (sick euthyroid state). In view of the renal failure, will not give any more doses of digoxin. 7. URINARY TRACT INFECTION ASSOCIATED WITH ACUTE CYSTITIS WITHOUT HEMATURIA. Patient is on antibiotics. 8. ATRIAL FIBRILLATION WITH SLIGHTLY FAST VENTRICULAR RESPONSE. Patient is on amiodarone. Will increase the amiodarone to 200 mg p.o. b.i.d. and also continue Eliquis. NOTE: The patient is status post pacemaker placement. This is antitachycardia pacing pacemaker. The pacemaker seems to be functioning normally. 9. CELLULITIS OF THE LOWER EXTREMITY, LEFT GREATER THAN RIGHT. Continue antibiotics. There is some improvement. 10. SLEEP APNEA SYNDROME. Patient to use nightly CPAP. 11. CHRONIC KIDNEY DISEASE, AT PRESENT STAGE 4, WHICH HAS REGRESSED FROM STAGE 3. 12. DIABETES MELLITUS WITH CHRONIC KIDNEY DISEASE. 13. DEPRESSION. 14. LEFT ANKLE SPRAIN. 15. HiISTORY OF BLADDER CANCER : CURED. PLAN: As mentioned earlier, continue antibiotics. Continue amiodarone and will increase amiodarone to 200 mg p.o. b.i.d. Continue Eliquis. Continue dextrose p.r.n. for hypoglycemia. Continue atorvastatin and Zetia. Continue Lasix 40 mg p.o. Continue insulin coverage and also Humalog insulin. Continue ipratropium 3 mL nebulizer treatment q. 6 hours. Continue metoprolol succinate 12.5 mg p.o. daily. Continue Starlix at 60 mg p.o. b.i.d. before meals. The patient is also on nitroglycerin tablet 1 sublingual q. 5 minutes p.r.n. The patient does not require this. Note that the patient's medications have been reviewed. His amiodarone dose has been increased and discussed the liver function test with the patient. NOTE: Thirty five (35) minutes spent on this patient with more than 50% of the time spent in direct patient care. This is a complex medical decision making case due to multiple comorbidities and also the patient's tachycardia. If the tachycardia continues, would need to make sure that this is not pacemaker mediated tachycardia. NOTE: More than 50% of the time spent on direct patient care. The findings of the x-ray have also been discussed with the patient. Will start the patient also on incentive spirometry while awake. DICTATING PHYSICIAN: SUNSHINE GUPTA M.D. [id number] PHY#: [id number] ID: [id number] JOB#: [id number] ACCT: [id number] cc: > MTDD
[2016-10-29] MEDS ORDERED: VERAPAMIL HCL INJ/PF 5 MG/2 ML SDV IV ONE (15:00)
[2016-10-29] MEDS ORDERED: AMIODARONE HCL IV ONE (16:00)
[2016-10-29] MEDS ORDERED: WATER IV ONE (16:00)
[2016-10-29] MEDS ORDERED: DEXTROSE 5% IV ONE (16:00)
[2016-10-29] MEDS ORDERED: METOPROLOL TARTRATE PF/INJ 5 MG/5 ML SDV IV ONE ×3 (20:05→22:00)
[2016-10-29] MEDS: INSULIN GLARGINE,HUM.REC.ANLOG 300 UNIT/3 ML INSULN.PEN SUBCUT SCH (21:29)
[2016-10-29] MEDS: INSULIN LISPRO 100 UNIT/ML 3 ML VIAL SUBCUT PRN (21:29)
[2016-10-29] MEDS: ATORVASTATIN CALCIUM 20 MG TABLET PO SCH (21:30)
[2016-10-29] MEDS: CEFEPIME HCL 1 GM in DEXTROSE 5%-WATER 50 ML IV SCH (21:30)
[2016-10-29] MEDS: APIXABAN 2.5 MG TABLET PO SCH (21:30)
--- NOTE | 2016-10-29 23:59 | PROGRESS NOTE E ---
Progress Note NAME: DAREK SIMON : 1935 AGE: 81Y DATE: 10/29/2016 ROOM: 315 [facility] CARE NOTE TIME SEEN: The patient was seen between 1:45 p.m. to 2:30 p.m., with at least 45 minutes spent on this patient. Note, at least 30 minutes were spent on direct patient care with me being in the patient's room and seeing the response to the medications given to the patient. Also discussions done with the patient's EP funeral planner covering physician in [place] and also with [employer] pacemaker rep. SUBJECTIVE: The patient continues to be tachycardic and his heart rate is 129 beats per minute although he is asymptomatic. His blood pressure earlier was 114/84 and at present is 120/86. After giving considerable thought, I felt that patient had atrial fibrillation/flutter or atrial tachycardia underlying with conduction to the ventricle. I do not know what the rate of the pacemaker was since I had no information and the low rate was 80 beats per minute of the ventricular rate. Also the thought that crossed my mind was if the patient is having pacemaker mediated tachycardia. The patient was given 5 mg of verapamil with no effect. I discussed the case with *------*, who is covering Dr. Jenkins, the entry analyst who implanted the patient's [employer] Advisor DR RADHA Reynoso pacemaker. I discussed with him the patient's condition and the patient's underlying rhythm and I told him that the patient had thick euthyroid labs and that I have increased the amiodarone dose. I told him there was no effect giving the patient either digoxin or present doses of amiodarone at 200 mg p.o. daily, which I have increased to twice a day. Also there is no response to the verapamil 5 mg IV push. I discussed the probability of PMT and also mediated tachycardia, and I said I planned to call the [employer] sales representative metals to interrogate the patient's pacemaker from a long distance via the equipment that they have in the hospital that transmits the pacemaker information to the sales representative metals. He agreed with me and I later on discussed with the [employer] pacemaker rep, and he suggested that there was a pacemaker interrogator which is wireless in the nursing home social worker's office. I contacted the nursing home social worker and subsequently the [employer] rep walked us through the interrogation of the pacemaker, which took at least about 7-10 minutes, hooking up the patient and getting information from the pacemaker and transmitting over to him. I was there during the time that the pacemaker was interrogated. After he got the information, the pacemaker rep sent us the report and told us that there was no PMT and that it was either atrial tachycardia or atrial fibrillation causing the patient's heart rate to go. I also noted that the patient's upper heart rate for the ventricular pacemaker rate was 130 beats per minute. The patient at this time was asymptomatic but no evidence of congestive heart failure. There were some decreased breath sounds in the right base. Otherwise, the patient remained stable. There were no TIA or CVA symptoms, the patient denies any chest pain or discomfort. OBJECTIVE: GENERAL: On examination, as mentioned earlier, the patient's heart rate came down to 136 beats per minute with a blood pressure at 120/86, respirations are 18 per minute, 02 sats are 98% on room air. Physical examination did not show any change from the morning. So I asked the nurse to give him a loading dose of amiodarone 75 mg IV piggyback over 45 minutes. This did not produce any results. Hence, I thought the best thing to do is to increase the patient's amiodarone and see if we can do it. Tomorrow morning I probably will give him adenosine to see if this has any effect. If his atrial tachycardia should drop, then the pacemaker should take care of the atrial rate and the patient will be re-paced. This has been discussed in detail with the patient and the patient's daughter. As mentioned earlier, this is a very highly complex medical decision making case due to the patient's persistent tachycardia which has been resistant to all treatments so far. As mentioned earlier, 30 minutes of the 45 minutes were spent on direct patient care. The patient in spite of the heart rate seemed to be unaware of that and was relatively stable and there were no focal neurological symptoms and there was no failure on examination and there was no ventricular arrhythmia seen. Thanking you. DICTATING PHYSICIAN: SUNSHINE GUPTA M.D. [id number] PHY#: [id number] ID: [id number] JOB#: [id number] ACCT: [id number] cc: >
[2016-10-30 05:07] LABS: HEMATOCRIT 30.9 % (37.9-51.0); HEMOGLOBIN 9.7 g/dL (13.5-17.0); HGB HCT DIFFERENCE -1.8; MEAN CORPUSCULAR HEMOGLOBIN 21.2 pg (27.0-33.4); MEAN CORPUSCULAR HGB CONC 31.3 g/dL (32.0-36.0); MEAN CORPUSCULAR VOLUME 68 fl (80-97); RED BLOOD COUNT 4.56 10^6/uL (4.35-5.55); RED CELL DISTRIBUTION WIDTH 18.6 % (11.5-14.0); WHITE BLOOD COUNT 13.8 10^3/uL (4.0-10.5)
[2016-10-30 05:32] LABS: ANION GAP 17 (5-19); BLOOD UREA NITROGEN 66 mg/dL (7-20); CALCIUM 9.2 mg/dL (8.4-10.2); CARBON DIOXIDE 19 mmol/L (22-30); CHLORIDE 100 mmol/L (98-107); CREATININE RESULT 2.21 mg/dL (0.52-1.25); GLUCOSE 225 mg/dL (75-110); POTASSIUM 3.9 mmol/L (3.6-5.0); SODIUM 135.5 mmol/L (137-145)
[2016-10-30] MEDS: LANSOPRAZOLE 15 MG TAB.RAP.DR PO SCH (06:45)
[2016-10-30] MEDS: FUROSEMIDE INJ/PF 20 MG/2 ML SDV IV SCH (06:45)
[2016-10-30] MEDS: NATEGLINIDE 60 MG TABLET PO SCH ×2 (08:06→17:21)
[2016-10-30] MEDS: INSULIN LISPRO 100 UNIT/ML 3 ML VIAL SUBCUT PRN ×4 (08:06→21:36)
[2016-10-30] MEDS: FERROUS SULFATE 325 MG TABLET PO SCH ×2 (08:06→17:21)
[2016-10-30] MEDS: INSULIN LISPRO 100 UNIT/ML 3 ML VIAL SUBCUT SCH ×3 (08:06→17:22)
[2016-10-30] MEDS: ACARBOSE 50 MG TABLET PO SCH ×3 (08:06→17:20)
--- NOTE | 2016-10-30 09:04 | RADIOLOGY REPORT (SQ) ---
EXAM DESCRIPTION: CHEST SINGLE VIEW COMPLETED DATE/TIME: 10/30/2016 8:19 am REASON FOR STUDY: pleural effusions COMPARISON: Chest films 10/02/2014, 10/25/2016 CT chest 10/28/2016 EXAM PARAMETERS: NUMBER OF VIEWS: One view. TECHNIQUE: Single frontal radiographic view of the chest acquired. RADIATION DOSE: NA LIMITATIONS: None. FINDINGS: LUNGS AND PLEURA: No significant pleural effusions. No focal infiltrates. No pneumothorax. MEDIASTINUM AND HILAR STRUCTURES: No masses. Contour normal. HEART AND VASCULAR STRUCTURES: Stable mild to moderate cardiomegaly. BONES: Old left shoulder replacement HARDWARE: Left-sided dual lead pacemaker OTHER: No other significant finding. IMPRESSION: No significant pleural effusions TECHNICAL DOCUMENTATION: JOB ID: [id number]
--- NOTE | 2016-10-30 10:06 | PDOC PROGRESS REPORT ---
Subjective Subjective:: Patient is currently doing fair. Patient still unable to walk patient still feeling very weak. Patient was CT chest and CT abdomen and pelvis and the CT chest shows the bilateral pleural effusion and CT abdomen and pelvis was all stable Patients denied any chest pain denied any shortness of the breath Patient still complaining of her leg pain Physical Exam Vital Signs: Temp Pulse Resp BP Pulse Ox 97.4 F 70 20 123/68 91 L 10/30/16 07:48 10/30/16 07:48 10/30/16 07:48 10/30/16 07:48 10/30/16 07:48 Intake & Output 10/29/16 10/30/16 10/31/16 06:59 06:59 06:59 Intake Total 1818 1434 Output Total 2076 1650 Balance -257 -216 Weight 86.3 kg 84.5 kg Results Laboratory Results: 10/30/16 04:27 10/30/16 04:27 10/26/16 10/30/16 10/30/16 08:00 04:27 04:27 WBC 13.8 H RBC 4.56 Hgb 9.7 L Hct 30.9 L MCV 68 L MCH 21.2 L MCHC 31.3 L RDW 18.6 H Plt Count 226 Sodium 135.5 L Potassium 3.9 Chloride 100 Carbon Dioxide 19 L Anion Gap 17 BUN 66 H Creatinine 2.21 H Est GFR ( Amer) 35 L Est GFR (Non-Af Amer) 29 L Glucose 225 H Calcium 9.2 Total Protein 6.0 Albumin 2.8 L 10/25/16 10/25/16 10/26/16 19:55 19:55 02:14 Creatine Kinase 72 61 CK-MB (CK-2) 2.04 Troponin I 0.019 NT-Pro-B Natriuret Pep 10/26/16 10/26/16 10/26/16 02:14 08:00 08:00 Creatine Kinase 45 L CK-MB (CK-2) 1.70 1.55 Troponin I 0.023 0.022 NT-Pro-B Natriuret Pep 10/26/16 08:00 Creatine Kinase CK-MB (CK-2) Troponin I NT-Pro-B Natriuret Pep 7440 H Impressions: Head CT 10/25/16 00:00 IMPRESSION: CHRONIC CHANGES OF ATROPHY AND MICROVASCULAR ISCHEMIA. NO ACUTE PROCESS. Shoulder X-Ray 10/25/16 13:06 IMPRESSION: No evidence for acute fracture or dislocation. There is bony sclerosis involving the scapula at the level of the glenoid and lateral portion of the scapula inferior to the glenoid. The differential possibilities would include metastatic disease or Paget's disease. Clinical correlation is recommended. Other findings as noted above. Body Scan Nuclear Medicine 10/26/16 08:32 IMPRESSION: AREAS OF ACTIVITY SECONDARY TO DEGENERATIVE JOINT DISEASE. NO FINDINGS CONCERNING FOR BONY METASTASES. Abdomen/Pelvis CT 10/27/16 00:00 IMPRESSION: NO ACUTE PROCESS IN THE ABDOMEN OR PELVIS. Other findings as noted above Ankle X-Ray 10/27/16 00:00 IMPRESSION: No acute fracture or dislocation identified. Mild soft tissue swelling noted about the ankles. No radiopaque foreign body. Degenerative changes noted in both feet and ankle joints as described Chest CT 10/27/16 00:00 IMPRESSION: A moderate size right and small left pleural effusions are identified. There is associated airspace consolidation especially on the right most consistent with atelectatic changes although I cannot exclude pneumonic consolidations. Other findings as noted above. Hip X-Ray 10/29/16 00:00 IMPRESSION: No acute fracture. No significant right or left hip joint space narrowing or bony spurring. Degenerative changes lower lumbar spine, prior CT demonstrates multilevel central canal stenosis. Lumbar Spine X-Ray 10/29/16 00:00 IMPRESSION: Multilevel degenerative disc changes, progressive since plain films in 2010 Chest X-Ray 10/30/16 06:00 IMPRESSION: No significant pleural effusions Assessment & Plan - Diagnosis (1) UTI (urinary tract infection) Qualifiers: Urinary tract infection type: acute cystitis Hematuria presence: without hematuria Qualified Code(s): N30.00 - Acute cystitis without hematuria Is this a current diagnosis for this admission?: YesPlan: Start the patient on IV antibiotic at the urine culture and blood culture (2) Atrial fibrillation Qualifiers: Atrial fibrillation type: chronic Qualified Code(s): I48.2 - Chronic atrial fibrillation Is this a current diagnosis for this admission?: YesPlan: Will cut down the Eliquis dose from 5 mg to 2.5 mg due to the patient H and a chronic kidney disease as per discussed with the Dr. Warren (3) Hypertension Qualifiers: Hypertension type: essential hypertension Qualified Code(s): I10 - Essential (primary) hypertension Is this a current diagnosis for this admission?: YesPlan: Continues to current medications (4) Anemia Qualifiers: Chronic kidney disease stage: stage 3 (moderate) Is this a current diagnosis for this admission?: YesPlan: From chronic kidney disease currently all stable (5) Bladder cancer Qualifiers: Bladder location: unspecified site Qualified Code(s): C67.9 - Malignant neoplasm of bladder, unspecified Is this a current diagnosis for this admission?: YesPlan: Currently all stable (6) Congestive heart failure Qualifiers: Congestive heart failure type: systolic Congestive heart failure chronicity: chronic Qualified Code(s): I50.22 - Chronic systolic ( congestive) heart failure Is this a current diagnosis for this admission?: YesPlan: With the pleural effusions bilaterally will increase the from p.o. to IV Lasix (7) Acute on chronic renal failure Qualifiers: Acute renal failure type: unspecified 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 Qualified Code(s): N17.9 - Acute kidney failure, unspecified; N18.9 - Chronic kidney disease, unspecified Is this a current diagnosis for this admission?: YesPlan: Currently stable (8) Generalized weakness Is this a current diagnosis for this admission?: YesPlan: Still weak discussed with the patient's to at least get a physical therapy will get the x-ray of the LS spine and the hip (9) Coronary artery disease Qualifiers: Coronary Disease-Associated Artery/Lesion type: unspecified vessel or lesion type Is this a current diagnosis for this admission?: YesPlan: We will get the cardiac enzymes every 63 (10) Pacemaker Is this a current diagnosis for this admission?: YesPlan: Will order the interrogation of the pacemaker while the patient is here in consult the cardiology (11) Cellulitis and abscess of lower extremity Is this a current diagnosis for this admission?: YesPlan: We will get the IV antibiotic and will also get arterial Doppler for further evaluations for any PAD - Time Time Spent with patient: 15-24 minutes Medications reviewed and adjusted accordingly: Yes Anticipated discharge: SNF - Inpatient Certification Medical Necessity: Need Close Monitoring Due to Risk of Patient Decompensation Post Hospital Care: D/C Supervisor [employer] Documentation
[2016-10-30] MEDS: EZETIMIBE 10 MG TABLET PO SCH (10:53)
[2016-10-30] MEDS: CITALOPRAM HYDROBROMIDE 20 MG TABLET PO SCH (10:53)
[2016-10-30] MEDS: AMIODARONE HCL 200 MG TABLET PO SCH ×2 (10:53→21:50)
[2016-10-30] MEDS: DOCUSATE SODIUM 100 MG CAPSULE PO SCH ×2 (10:53→17:21)
[2016-10-30] MEDS: METOPROLOL SUCCINATE 25 MG TAB.SR.24H PO SCH (10:54)
[2016-10-30] MEDS: APIXABAN 2.5 MG TABLET PO SCH ×2 (10:55→21:37)
[2016-10-30] MEDS: METHOCARBAMOL 500 MG TABLET PO SCH ×2 (10:57→21:50)
--- NOTE | 2016-10-30 18:19 | PROGRESS NOTE E ---
Progress Note NAME: DAREK SIMON : 1935 AGE: 81Y DATE: 10/30/2016 ROOM: 315 SUBJECTIVE: Note that the patient denies any shortness of breath, chest pain, PND, orthopnea. His leg edema is much improved; in fact, there is only trace edema. His cellulitis of the lower extremities has resolved. He says that his left ankle pain is very much less and improved. He has no chest pain or discomfort. Note, with the increase in the patient's amiodarone, the patient is now converted to a slower rhythm with atrial sensed and ventricular paced rhythm at a rate of 73 beats per minute. There is no TIA or CVA symptoms. There is no bleeding on Eliquis. OBJECTIVE: GENERAL: On examination, the patient is mildly obese and appears to be chronically ill but seems to have much improvement in his general status. VITAL SIGNS: He is afebrile with a temperature of 97.4 degrees Fahrenheit, pulse is 70 per minute, blood pressure is 143/68, respirations are 20 and O2 saturations are 91% on room air. HEAD: Atraumatic, normocephalic. EYES: Pupils are equal, round, regular, reactive to light and accommodation. Extraocular movements are normal. Sclerae are without any icterus. Conjunctiva is pink. ENT: Negative for any pathology. NECK: Supple without lymphadenopathy. Trachea is central. There is no goiter. Carotids are 2+ without any bruits. LUNGS: Clear to auscultation and percussion. There are no rhonchi, rales or wheezing. CHEST WALL: No tenderness. HEART: S1 and S2 are heard. S1 is of normal intensity. There is no S3 gallop. There is no S4 gallop. There is a systolic murmur in the left sternal border and the apex. There is no rub. ABDOMEN: Soft. There is no hepatosplenomegaly. Bowel sounds are well heard. There are no tender areas or masses. The patient has a suprapubic cystostomy catheter in situ. EXTREMITIES: The patient has no evidence of cellulitis, which has resolved with antibiotics. There is trace pedal edema and trace leg edema. The excoriations have healed. Femorals are diminished. There are no femoral bruits. Leg pulses are diminished. There is no DVT or cellulitis at present and there is no calf tenderness. There is no cyanosis or clubbing. His left ankle is much less swollen and also less tender. CENTRAL NERVOUS SYSTEM: The patient seems to be conscious, awake, alert, oriented x3 without any focal deficits. PSYCHIATRIC: The patient does not appear to be agitated or depressed. The patient's judgment and insight seem to be intact. IMPRESSION: 1. CORONARY ARTERY DISEASE. Patient has no anginal symptoms. 2. GENERALIZED WEAKNESS. Much improved. 3. DUAL CHAMBER PACEMAKER PLACEMENT. It is an MRI SureScan Med[employer]onic pacemaker. 4. 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 Now broken with increased amiodarone and at present in atrial sensed and ventricular rhythm at a rate of 73 beats per minute with stable blood pressure. The patient has no symptoms of palpitations. The patient is on Eliquis for atrial fibrillation. He has no bleeding on Eliquis. There are no TIA or CVA symptoms. 5. CELLULITIS OF THE LOWER EXTREMITIES, LEFT GREATER THAN RIGHT. Has improved and resolved with antibiotics. 6. HYPERTENSION. Blood pressure is well controlled. 7. SLEEP APNEA SYNDROME. Patient to use nightly CPAP. 8. CHRONIC KIDNEY DISEASE, AT PRESENT STAGE 4. Will most likely improve the patient's heart rate coming down to normal. 9. DIABETES MELLITUS WITH CHRONIC KIDNEY DISEASE. Stable. 10. DEPRESSION. 11. LEFT ANKLE SPRAIN. Much improved. 12. HISTORY OF BLADDER CANCER CURED BUT THE PATIENT HAS A SUPRAPUBIC CYSTOSTOMY CATHETER. RECOMMENDATIONS: Continue antibiotics. Continue amiodarone at 200 mg p.o. q.12 h. for about 5 days and then cut back to 200 mg p.o. daily. Continue Eliquis. Continue atorvastatin and Zetia. Continue Lasix p.o. Continue insulin coverage and also Humalog insulin. Continue metoprolol succinate 12.5 mg p.o. daily. Continue Starlix at 60 mg p.o. b.i.d. before meals. The patient is also on nitroglycerin tablet 1 sublingually every 5 minutes p.r.n. and the patient has not required this this admission. The patient's medications have been reviewed and the med changes have been discussed with the patient and the patient's daughter and also with Dr. Ravin Simpson. The patient will follow up with his doctor who is an EP cofounder in [place]. NOTE: Thirty minutes spent on this patient with more than 50% of the time spent in direct patient care and also review of the patient's medications and discussions with other caregiving providers on the case including attending physician. This case now involves a moderately complex decision making, since the patient has multiple comorbidities. The patient is stable, will sign off the case. Note that the patient is DNR. His daughter is his surrogate healthcare decision maker. Of the 35 minutes, more than 50% of the time was spent on direct patient care. Thanking you. DICTATING PHYSICIAN: SUNSHINE GUPTA M.D. [id number] PHY#: [id number] ID: [id number] JOB#: [id number] ACCT: [id number] cc: >
[2016-10-30] MEDS: CEFEPIME HCL 1 GM in DEXTROSE 5%-WATER 50 ML IV SCH (21:21)
[2016-10-30] MEDS: INSULIN GLARGINE,HUM.REC.ANLOG 300 UNIT/3 ML INSULN.PEN SUBCUT SCH (21:35)
[2016-10-30] MEDS: ATORVASTATIN CALCIUM 20 MG TABLET PO SCH (21:50)
[2016-10-31 04:55] LABS: HEMOGLOBIN 10.6 g/dL (13.5-17.0); HGB HCT DIFFERENCE -2.2; MEAN CORPUSCULAR HEMOGLOBIN 21.3 pg (27.0-33.4); MEAN CORPUSCULAR HGB CONC 31.1 g/dL (32.0-36.0); MEAN CORPUSCULAR VOLUME 69 fl (80-97); RED BLOOD COUNT 4.96 10^6/uL (4.35-5.55); RED CELL DISTRIBUTION WIDTH 18.7 % (11.5-14.0); WHITE BLOOD COUNT 11.1 10^3/uL (4.0-10.5)
[2016-10-31 05:07] LABS: ANION GAP 11 (5-19); BLOOD UREA NITROGEN 66 mg/dL (7-20); CALCIUM 9.1 mg/dL (8.4-10.2); CARBON DIOXIDE 25 mmol/L (22-30); CHLORIDE 102 mmol/L (98-107); CREATININE RESULT 2.03 mg/dL (0.52-1.25); GLUCOSE 148 mg/dL (75-110); POTASSIUM 3.4 mmol/L (3.6-5.0); SODIUM 138.2 mmol/L (137-145)
[2016-10-31] MEDS: LANSOPRAZOLE 15 MG TAB.RAP.DR PO SCH (05:54)
--- NOTE | 2016-10-31 09:58 | RADIOLOGY REPORT (SQ) ---
EXAM DESCRIPTION: CT HEAD WITHOUT COMPLETED DATE/TIME: 10/31/2016 9:45 am REASON FOR STUDY: altered mental status COMPARISON: None. TECHNIQUE: Axial images acquired through the brain without intravenous contrast. Images reviewed wi th bone, brain and subdural windows. Images stored on PACS. All CT scanners at this facility use dose modulation, iterative reconstruction, and/or weight based d osing when appropriate to reduce radiation dose to as low as reasonably achievable (ALARA). [facility]: Dose Right [facility]: CareDose [facility]: Dose Right [facility]: Teradose 4D [facility]: [employer] RADIATION DOSE: 64.61mGy. LIMITATIONS: None. FINDINGS: VENTRICLES: Prominent. CEREBRUM: No masses. No hemorrhage. No midline shift. Areas of low density in the white matter mos t likely due to chronic micro-vascular ischemic change. No evidence for acute infarction. CEREBELLUM: No masses. No hemorrhage. No alteration of density. No evidence for acute infarction. EXTRAAXIAL SPACES: Age-related involutional change. No fluid collections. No masses. ORBITS AND GLOBE: No intra- or extraconal masses. Normal contour of globe without masses. CALVARIUM: No fracture. PARANASAL SINUSES: No fluid or mucosal thickening. SOFT TISSUES: No mass or hematoma. OTHER: No other significant finding. IMPRESSION: CHRONIC CHANGES OF ATROPHY AND MICROVASCULAR ISCHEMIA. NO ACUTE PROCESS. TECHNICAL DOCUMENTATION: JOB ID: [id number] Quality ID # [id number]: Final reports with documentation of one or more dose reduction techniques (e.g., Au tomated exposure control, adjustment of the mA and/or kV according to patient size, use of iterative reconstruction technique) 2010 [employer]- All Rights Reserved
--- NOTE | 2016-10-31 13:01 | EKG REPORT ---
SEVERITY:- ABNORMAL ECG - ATRIAL-SENSED VENTRICULAR-PACED RHYTHM : Confirmed by: Terri Cottrell MD 31-Oct-2016 13:00:20
--- NOTE | 2016-10-31 13:01 | EKG REPORT ---
SEVERITY:- ABNORMAL ECG - VENTRICULAR-PACED RHYTHM : Confirmed by: Terri Cottrell MD 31-Oct-2016 13:00:15
--- NOTE | 2016-10-31 13:31 | PDOC PROGRESS REPORT ---
Subjective Progress Note for:: 10/31/16 Subjective:: Patient is doing fair yesterday evening and since last night and this morning according to the patient's family and the nursing staff patients do not want to open the eye and patients do not want to talk and not respond all the vital signs pretty stable and patient's move all extremity. Patient have a CT of the head was done and was negative for any acute finding. Patient initial all blood work is pretty stable. Plan I saw the patient's patients closes eyes but not open the eyes with the verbal command but other than that no acute distress the painful stimuli patient 's move all 4 extremity Physical Exam Vital Signs: Temp Pulse Resp BP Pulse Ox 97.4 F 67 18 145/82 H 92 10/31/16 08:00 10/31/16 08:00 10/31/16 08:00 10/31/16 08:00 10/31/16 08:00 Intake & Output 10/30/16 10/31/16 11/01/16 06:59 06:59 06:59 Intake Total 1434 624 Output Total 1650 2050 Balance -216 -1426 Weight 84.5 kg 83.4 kg Physical Exam: Patient is lying in the bed and closes eye General appearance: PRESENT: no acute distress Eye exam: PRESENT: PERRLA Respiratory exam: PRESENT: clear to auscultation denita Cardiovascular exam: PRESENT: +S1, +S2 GI/Abdominal exam: PRESENT: normal bowel sounds, soft. ABSENT: tenderness Extremities exam: ABSENT: pedal edema Neurological exam: PRESENT: altered Skin exam: PRESENT: dry Results Laboratory Results: 10/31/16 04:42 10/31/16 10/31/16 04:42 04:42 WBC 11.1 H RBC 4.96 Hgb 10.6 L Hct 34.0 L MCV 69 L MCH 21.3 L MCHC 31.1 L RDW 18.7 H Plt Count 204 Sodium 138.2 Potassium 3.4 L Chloride 102 Carbon Dioxide 25 Anion Gap 11 BUN 66 H Creatinine 2.03 H Est GFR ( Amer) 38 L Est GFR (Non-Af Amer) 32 L Glucose 148 H Calcium 9.1 10/25/16 10/25/16 10/26/16 19:55 19:55 02:14 Creatine Kinase 72 61 CK-MB (CK-2) 2.04 Troponin I 0.019 NT-Pro-B Natriuret Pep 10/26/16 10/26/16 10/26/16 02:14 08:00 08:00 Creatine Kinase 45 L CK-MB (CK-2) 1.70 1.55 Troponin I 0.023 0.022 NT-Pro-B Natriuret Pep 10/26/16 08:00 Creatine Kinase CK-MB (CK-2) Troponin I NT-Pro-B Natriuret Pep 7440 H Impressions: Shoulder X-Ray 10/25/16 13:06 IMPRESSION: No evidence for acute fracture or dislocation. There is bony sclerosis involving the scapula at the level of the glenoid and lateral portion of the scapula inferior to the glenoid. The differential possibilities would include metastatic disease or Paget's disease. Clinical correlation is recommended. Other findings as noted above. Body Scan Nuclear Medicine 10/26/16 08:32 IMPRESSION: AREAS OF ACTIVITY SECONDARY TO DEGENERATIVE JOINT DISEASE. NO FINDINGS CONCERNING FOR BONY METASTASES. Abdomen/Pelvis CT 10/27/16 00:00 IMPRESSION: NO ACUTE PROCESS IN THE ABDOMEN OR PELVIS. Other findings as noted above Ankle X-Ray 10/27/16 00:00 IMPRESSION: No acute fracture or dislocation identified. Mild soft tissue swelling noted about the ankles. No radiopaque foreign body. Degenerative changes noted in both feet and ankle joints as described Chest CT 10/27/16 00:00 IMPRESSION: A moderate size right and small left pleural effusions are identified. There is associated airspace consolidation especially on the right most consistent with atelectatic changes although I cannot exclude pneumonic consolidations. Other findings as noted above. Hip X-Ray 10/29/16 00:00 IMPRESSION: No acute fracture. No significant right or left hip joint space narrowing or bony spurring. Degenerative changes lower lumbar spine, prior CT demonstrates multilevel central canal stenosis. Lumbar Spine X-Ray 10/29/16 00:00 IMPRESSION: Multilevel degenerative disc changes, progressive since plain films in 2010 Chest X-Ray 10/30/16 06:00 IMPRESSION: No significant pleural effusions Head CT 10/31/16 09:01 IMPRESSION: CHRONIC CHANGES OF ATROPHY AND MICROVASCULAR ISCHEMIA. NO ACUTE PROCESS. Assessment & Plan - Diagnosis (1) UTI (urinary tract infection) Qualifiers: Urinary tract infection type: acute cystitis Hematuria presence: without hematuria Qualified Code(s): N30.00 - Acute cystitis without hematuria Is this a current diagnosis for this admission?: YesPlan: Continues to IV antibiotic will recheck the urine culture (2) Atrial fibrillation Qualifiers: Atrial fibrillation type: chronic Qualified Code(s): I48.2 - Chronic atrial fibrillation Is this a current diagnosis for this admission?: YesPlan: Will cut down the Eliquis dose from 5 mg to 2.5 mg due to the patient H and a chronic kidney disease as per discussed with the Dr. Warren (3) Hypertension Qualifiers: Hypertension type: essential hypertension Qualified Code(s): I10 - Essential (primary) hypertension Is this a current diagnosis for this admission?: YesPlan: Continues to current medications (4) Anemia Qualifiers: Chronic kidney disease stage: stage 3 (moderate) Is this a current diagnosis for this admission?: YesPlan: From chronic kidney disease currently all stable (5) Bladder cancer Qualifiers: Bladder location: unspecified site Qualified Code(s): C67.9 - Malignant neoplasm of bladder, unspecified Is this a current diagnosis for this admission?: YesPlan: Currently all stable (6) Congestive heart failure Qualifiers: Congestive heart failure type: systolic Congestive heart failure chronicity: chronic Qualified Code(s): I50.22 - Chronic systolic ( congestive) heart failure Is this a current diagnosis for this admission?: YesPlan: Continues to p.o. Lasix and the patient's cannot take by p.o. 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 Qualified Code(s): N17.9 - Acute kidney failure, unspecified; N18.9 - Chronic kidney disease, unspecified Is this a current diagnosis for this admission?: YesPlan: Currently stable (8) Generalized weakness Is this a current diagnosis for this admission?: YesPlan: Still weak discussed with the patient's to at least get a physical therapy will get the x-ray of the LS spine and the hip (9) Coronary artery disease Qualifiers: Coronary Disease-Associated Artery/Lesion type: unspecified vessel or lesion type Is this a current diagnosis for this admission?: YesPlan: We will get the cardiac enzymes every 63 (10) Pacemaker Is this a current diagnosis for this admission?: Yes (11) Cellulitis and abscess of lower extremity Is this a current diagnosis for this admission?: Yes (12) Altered mental status Qualifiers: Altered mental status type: unspecified Qualified Code(s): R41.82 - Altered mental status, unspecified Is this a current diagnosis for this admission?: YesPlan: Not clear etiology patient CT head was negative unable to get the MRI due to the pacemaker. Patient's all the vital signs are stable but definitely changed from previous day. According to the daughter when she talked to the patient about going to the nursing homes after that patients pretty much withdrawing himself but I am not sure whether truly is psychiatric related versus underlying some medical issues. Patients may be of some TIA patient is already on Eliquis and maximum medications We will continues to monitor the patient's will get the ABG and some blood work to rule out other metabolic events - Time Time Spent with patient: 15-24 minutes Medications reviewed and adjusted accordingly: Yes Anticipated discharge: Other Within: Other - Inpatient Certification Medical Necessity: Need Close Monitoring Due to Risk of Patient Decompensation, Need for IV Antibiotics Post Hospital Care: D/C Carton Repairer Documentation - Plan Summary Plan Summary: Very extensive discussions with the power of assistant inventory manager the daughter and also the daughter and other family member about the all the test report and CT scan report and possible underlying TIA versus stroke versus metabolic events. Overall patient's prognosis is not good with the multiple comorbidity. Patient express himself is a DNR/DNI and the power of assistant inventory manager the daughter also continues to be DNR/DNI Will check the other blood work We will check the ABG If the patient's current response will repeat the CT of the head in the morning
[2016-10-31 13:32] LABS: ALANINE AMINOTRANSFERASE 27 U/L (21-72); ALBUMIN 2.6 g/dL (3.5-5.0); ALKALINE PHOSPHATASE 215 U/L (38-126); ANION GAP 14 (5-19); ASPARTATE AMINO TRANSFERASE 21 U/L (17-59); BILIRUBIN,DIRECT 0.7 mg/dL (0.0-0.4); BLOOD UREA NITROGEN 61 mg/dL (7-20); CALCIUM 9.1 mg/dL (8.4-10.2); CARBON DIOXIDE 24 mmol/L (22-30); CHLORIDE 101 mmol/L (98-107); CREATININE RESULT 1.93 mg/dL (0.52-1.25); GLUCOSE 158 mg/dL (75-110); MAGNESIUM 1.9 mg/dL (1.6-2.3); POTASSIUM 3.3 mmol/L (3.6-5.0); SODIUM 138.8 mmol/L (137-145); TOTAL PROTEIN 6.1 g/dL (6.3-8.2)
[2016-10-31] MEDS ORDERED: POTASSI CL 20 MEQ/50 ML RIDER 20 MEQ/50 ML RTUPB IV SCH (15:00)
[2016-10-31] MEDS: FUROSEMIDE 40 MG TABLET PO SCH (15:05)
[2016-10-31] MEDS: AMIODARONE HCL 200 MG TABLET PO SCH ×2 (15:05→21:10)
[2016-10-31] MEDS: METOPROLOL SUCCINATE 25 MG TAB.SR.24H PO SCH (15:05)
[2016-10-31] MEDS: INSULIN LISPRO 100 UNIT/ML 3 ML VIAL SUBCUT SCH ×2 (15:05→15:06)
[2016-10-31] MEDS: APIXABAN 2.5 MG TABLET PO SCH ×2 (15:05→21:10)
[2016-10-31] MEDS: CITALOPRAM HYDROBROMIDE 20 MG TABLET PO SCH (15:05)
[2016-10-31] MEDS: ACARBOSE 50 MG TABLET PO SCH ×2 (15:05→16:47)
[2016-10-31] MEDS: FERROUS SULFATE 325 MG TABLET PO SCH ×2 (15:05→16:47)
[2016-10-31] MEDS: DOCUSATE SODIUM 100 MG CAPSULE PO SCH ×2 (15:05→16:47)
[2016-10-31] MEDS: NATEGLINIDE 60 MG TABLET PO SCH ×2 (15:05→15:06)
[2016-10-31] MEDS: EZETIMIBE 10 MG TABLET PO SCH (15:05)
[2016-10-31 16:45] LABS: ARTERIAL BLOOD BASE EXCESS -1.7 mmol/L; ARTERIAL BLOOD O2 SATURATION 96.6 % (94-98)
[2016-10-31] MEDS: ATORVASTATIN CALCIUM 20 MG TABLET PO SCH (21:09)
[2016-10-31] MEDS: CEFEPIME HCL 1 GM in DEXTROSE 5%-WATER 50 ML IV SCH (21:10)
[2016-10-31] MEDS: INSULIN GLARGINE,HUM.REC.ANLOG 300 UNIT/3 ML INSULN.PEN SUBCUT SCH (21:49)
[2016-10-31] MEDS: INSULIN LISPRO 100 UNIT/ML 3 ML VIAL SUBCUT PRN (21:49)
[2016-11-01] MEDS: LANSOPRAZOLE 15 MG TAB.RAP.DR PO SCH (05:15)
[2016-11-01 05:18] LABS: ABSOLUTE BASOPHILS # (AUTO) 0.1 10^3/uL (0.0-0.2); ABSOLUTE EOSINOPHILS # (AUTO) 0.1 10^3/uL (0.0-0.6); ABSOLUTE MONOCYTES (AUTO) 0.9 10^3/uL (0.1-1.4); ABSOLUTE NEUT (AUTO) 6.3 10^3/uL (1.7-8.2); BASOPHILS % (AUTO) 0.7 % (0-2); EOSINOPHILS % (AUTO) 1.5 % (0-6); LYMPHOCYTES % (AUTO) 12.1 % (13-45); MEAN CORPUSCULAR HEMOGLOBIN 21.5 pg (27.0-33.4); MEAN CORPUSCULAR HGB CONC 30.4 g/dL (32.0-36.0); MEAN CORPUSCULAR VOLUME 71 fl (80-97); RED BLOOD COUNT 4.68 10^6/uL (4.35-5.55); RED CELL DISTRIBUTION WIDTH 18.7 % (11.5-14.0); SEGMENTED NEUTROPHILS % (AUTO) 74.7 % (42-78); WHITE BLOOD COUNT 8.4 10^3/uL (4.0-10.5)
[2016-11-01 07:41] LABS: ANION GAP 13 (5-19); BLOOD UREA NITROGEN 67 mg/dL (7-20); CARBON DIOXIDE 22 mmol/L (22-30); CHLORIDE 103 mmol/L (98-107); CREATININE RESULT 1.95 mg/dL (0.52-1.25); GLUCOSE 167 mg/dL (75-110); POTASSIUM 3.7 mmol/L (3.6-5.0); SODIUM 137.6 mmol/L (137-145)
--- NOTE | 2016-11-01 09:19 | PDOC PROGRESS REPORT ---
Subjective Progress Note for:: 11/01/16 Subjective:: Patient is doing wellMuch alert awake and oriented. Patient's denied any chest pain denied any shortness of the breath Physical Exam Vital Signs: Temp Pulse Resp BP Pulse Ox 97.8 F 67 20 126/72 H 97 11/01/16 07:17 11/01/16 07:17 11/01/16 07:17 11/01/16 07:17 11/01/16 07:17 Intake & Output 10/31/16 11/01/16 11/02/16 06:59 06:59 06:59 Intake Total 624 984 Output Total 0 1425 Balance -1426 -441 Weight 83.4 kg 83.4 kg General appearance: PRESENT: no acute distress, well-developed, well-nourished Head exam: PRESENT: atraumatic, normocephalic Eye exam: PRESENT: conjunctiva pink, EOMI, PERRLA. ABSENT: scleral icterus Ear exam: PRESENT: normal external ear exam Mouth exam: PRESENT: moist, tongue midline Neck exam: PRESENT: full ROM. ABSENT: carotid bruit, JVD, lymphadenopathy, thyromegaly Respiratory exam: PRESENT: clear to auscultation denita Cardiovascular exam: PRESENT: RRR. ABSENT: diastolic murmur, rubs, systolic murmur Pulses: PRESENT: normal dorsalis pedis pul, +2 pedal pulses bilateral Vascular exam: PRESENT: normal capillary refill GI/Abdominal exam: PRESENT: normal bowel sounds, soft. ABSENT: distended, guarding, mass, organolmegaly, rebound, tenderness Rectal exam: PRESENT: deferred Neurological exam: PRESENT: alert, awake, oriented to person, oriented to place , oriented to time, oriented to situation, CN II-XII grossly intact. ABSENT: motor sensory deficit Psychiatric exam: PRESENT: appropriate affect, normal mood. ABSENT: homicidal ideation, suicidal ideation Skin exam: PRESENT: dry, intact, warm. ABSENT: cyanosis, rash Results Laboratory Results: 11/01/16 04:15 11/01/16 06:30 10/31/16 10/31/16 10/31/16 13:07 13:07 13:07 WBC RBC Hgb Hct MCV MCH MCHC RDW Plt Count Seg Neutrophils % Lymphocytes % Monocytes % Eosinophils % Basophils % Absolute Neutrophils Absolute Lymphocytes Absolute Monocytes Absolute Eosinophils Absolute Basophils Carbonic Acid HCO3/H2CO3 Ratio ABG pH ABG pCO2 ABG pO2 ABG HCO3 ABG O2 Saturation ABG Base Excess FiO2 Sodium 138.8 Potassium 3.3 L Chloride 101 Carbon Dioxide 24 Anion Gap 14 BUN 61 H Creatinine 1.93 H Est GFR ( Amer) 41 L Est GFR (Non-Af Amer) 33 L Glucose 158 H Lactic Acid 1.4 Calcium 9.1 Magnesium 1.9 Total Bilirubin 1.0 AST 21 ALT 27 Alkaline Phosphatase 215 H Ammonia < 8.7 L Total Protein 6.1 L Albumin 2.6 L 10/31/16 11/01/16 11/01/16 16:40 04:15 04:15 WBC 8.4 RBC 4.68 Hgb 10.0 L Hct 33.0 L MCV 71 L MCH 21.5 L MCHC 30.4 L RDW 18.7 H Plt Count 232 Seg Neutrophils % 74.7 Lymphocytes % 12.1 L Monocytes % 11.0 Eosinophils % 1.5 Basophils % 0.7 Absolute Neutrophils 6.3 Absolute Lymphocytes 1.0 Absolute Monocytes 0.9 Absolute Eosinophils 0.1 Absolute Basophils 0.1 Carbonic Acid 0.79 L HCO3/H2CO3 Ratio 25:1 ABG pH 7.50 H ABG pCO2 26.3 L ABG pO2 77.4 L ABG HCO3 20.2 ABG O2 Saturation 96.6 ABG Base Excess -1.7 FiO2 ROOM AIR Sodium Cancelled Potassium Cancelled Chloride Cancelled Carbon Dioxide Cancelled Anion Gap Cancelled BUN Cancelled Creatinine Cancelled Est GFR ( Amer) Cancelled Est GFR (Non-Af Amer) Cancelled Glucose Cancelled Lactic Acid Calcium Cancelled Magnesium Total Bilirubin AST ALT Alkaline Phosphatase Ammonia Total Protein Albumin 11/01/16 06:30 WBC RBC Hgb Hct MCV MCH MCHC RDW Plt Count Seg Neutrophils % Lymphocytes % Monocytes % Eosinophils % Basophils % Absolute Neutrophils Absolute Lymphocytes Absolute Monocytes Absolute Eosinophils Absolute Basophils Carbonic Acid HCO3/H2CO3 Ratio ABG pH ABG pCO2 ABG pO2 ABG HCO3 ABG O2 Saturation ABG Base Excess FiO2 Sodium 137.6 Potassium 3.7 Chloride 103 Carbon Dioxide 22 Anion Gap 13 BUN 67 H Creatinine 1.95 H Est GFR ( Amer) 40 L Est GFR (Non-Af Amer) 33 L Glucose 167 H Lactic Acid Calcium 9.0 Magnesium Total Bilirubin AST ALT Alkaline Phosphatase Ammonia Total Protein Albumin 10/25/16 10/25/1610/26/17 19:55 19:55 02:14 Creatine Kinase 72 61 CK-MB (CK-2) 2.04 Troponin I 0.019 NT-Pro-B Natriuret Pep 10/26/16 10/26/16 10/26/16 02:14 08:00 08:00 Creatine Kinase 45 L CK-MB (CK-2) 1.70 1.55 Troponin I 0.023 0.022 NT-Pro-B Natriuret Pep 10/26/16 08:00 Creatine Kinase CK-MB (CK-2) Troponin I NT-Pro-B Natriuret Pep 7440 H Impressions: Shoulder X-Ray 10/25/16 13:06 IMPRESSION: No evidence for acute fracture or dislocation. There is bony sclerosis involving the scapula at the level of the glenoid and lateral portion of the scapula inferior to the glenoid. The differential possibilities would include metastatic disease or Paget's disease. Clinical correlation is recommended. Other findings as noted above. Body Scan Nuclear Medicine 10/26/16 08:32 IMPRESSION: AREAS OF ACTIVITY SECONDARY TO DEGENERATIVE JOINT DISEASE. NO FINDINGS CONCERNING FOR BONY METASTASES. Abdomen/Pelvis CT 10/27/16 00:00 IMPRESSION: NO ACUTE PROCESS IN THE ABDOMEN OR PELVIS. Other findings as noted above Ankle X-Ray 10/27/16 00:00 IMPRESSION: No acute fracture or dislocation identified. Mild soft tissue swelling noted about the ankles. No radiopaque foreign body. Degenerative changes noted in both feet and ankle joints as described Chest CT 10/27/16 00:00 IMPRESSION: A moderate size right and small left pleural effusions are identified. There is associated airspace consolidation especially on the right most consistent with atelectatic changes although I cannot exclude pneumonic consolidations. Other findings as noted above. Hip X-Ray 10/29/16 00:00 IMPRESSION: No acute fracture. No significant right or left hip joint space narrowing or bony spurring. Degenerative changes lower lumbar spine, prior CT demonstrates multilevel central canal stenosis. Lumbar Spine X-Ray 10/29/16 00:00 IMPRESSION: Multilevel degenerative disc changes, progressive since plain films in 2010 Chest X-Ray 10/30/16 06:00 IMPRESSION: No significant pleural effusions Head CT 10/31/16 09:01 IMPRESSION: CHRONIC CHANGES OF ATROPHY AND MICROVASCULAR ISCHEMIA. NO ACUTE PROCESS. Assessment & Plan - Diagnosis (1) UTI (urinary tract infection) Qualifiers: Urinary tract infection type: acute cystitis Hematuria presence: without hematuria Qualified Code(s): N30.00 - Acute cystitis without hematuria Is this a current diagnosis for this admission?: YesPlan: Continues to IV antibiotic (2) Atrial fibrillation Qualifiers: Atrial fibrillation type: chronic Qualified Code(s): I48.2 - Chronic atrial fibrillation Is this a current diagnosis for this admission?: YesPlan: Will cut down the Eliquis dose from 5 mg to 2.5 mg due to the patient H and a chronic kidney disease as per discussed with the Dr. Warren (3) Hypertension Qualifiers: Hypertension type: essential hypertension Qualified Code(s): I10 - Essential (primary) hypertension Is this a current diagnosis for this admission?: YesPlan: Continues to current medications (4) Anemia Qualifiers: Chronic kidney disease stage: stage 3 (moderate) Is this a current diagnosis for this admission?: YesPlan: From chronic kidney disease currently all stable (5) Bladder cancer Qualifiers: Bladder location: unspecified site Qualified Code(s): C67.9 - Malignant neoplasm of bladder, unspecified Is this a current diagnosis for this admission?: YesPlan: Currently all stable (6) Congestive heart failure Qualifiers: Congestive heart failure type: systolic Congestive heart failure chronicity: chronic Qualified Code(s): I50.22 - Chronic systolic ( congestive) heart failure Is this a current diagnosis for this admission?: YesPlan: Continues to p.o. Lasix and the patient's cannot take by p.o. 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 Qualified Code(s): N17.9 - Acute kidney failure, unspecified; N18.9 - Chronic kidney disease, unspecified Is this a current diagnosis for this admission?: YesPlan: Currently stable (8) Generalized weakness Is this a current diagnosis for this admission?: YesPlan: Patient still very weak will continues to physical therapy (9) Coronary artery disease Qualifiers: Coronary Disease-Associated Artery/Lesion type: unspecified vessel or lesion type Is this a current diagnosis for this admission?: YesPlan: We will get the cardiac enzymes every 63 (10) Pacemaker Is this a current diagnosis for this admission?: YesPlan: Will order the interrogation of the pacemaker while the patient is here in consult the cardiology (11) Cellulitis and abscess of lower extremity Is this a current diagnosis for this admission?: Yes (12) Altered mental status Qualifiers: Altered mental status type: unspecified Qualified Code(s): R41.82 - Altered mental status, unspecified Is this a current diagnosis for this admission?: YesPlan: At this point all the test is negative when patient ABG was most likely is suggesting the hyperventilating. Patient is back to the normal - Time Time Spent with patient: 15-24 minutes Medications reviewed and adjusted accordingly: Yes Anticipated discharge: SNF Within: within 24 hours - Inpatient Certification Medical Necessity: Need Close Monitoring Due to Risk of Patient Decompensation, Need for IV Antibiotics Post Hospital Care: D/C Passenger Service Supervisor Documentation - Plan Summary Plan Summary: Discussed with the daughter about the patient's current conditions patient at this point is still very weak will discharge the patient to the rehab
[2016-11-01] MEDS: INSULIN LISPRO 100 UNIT/ML 3 ML VIAL SUBCUT SCH ×3 (09:47→16:25)
[2016-11-01] MEDS: NATEGLINIDE 60 MG TABLET PO SCH ×2 (09:52→17:20)
[2016-11-01] MEDS: FERROUS SULFATE 325 MG TABLET PO SCH ×2 (09:52→17:19)
[2016-11-01] MEDS: EZETIMIBE 10 MG TABLET PO SCH (09:52)
[2016-11-01] MEDS: FUROSEMIDE 40 MG TABLET PO SCH (09:53)
[2016-11-01] MEDS: METOPROLOL SUCCINATE 25 MG TAB.SR.24H PO SCH (09:53)
[2016-11-01] MEDS: CITALOPRAM HYDROBROMIDE 20 MG TABLET PO SCH (09:53)
[2016-11-01] MEDS: AMIODARONE HCL 200 MG TABLET PO SCH ×2 (09:54→21:27)
[2016-11-01] MEDS: DOCUSATE SODIUM 100 MG CAPSULE PO SCH ×2 (09:54→17:19)
[2016-11-01] MEDS: ACARBOSE 50 MG TABLET PO SCH ×3 (09:54→17:19)
[2016-11-01] MEDS: APIXABAN 2.5 MG TABLET PO SCH ×2 (09:55→21:27)
[2016-11-01] MEDS: INSULIN LISPRO 100 UNIT/ML 3 ML VIAL SUBCUT PRN ×2 (17:19→22:08)
[2016-11-01] MEDS: ATORVASTATIN CALCIUM 20 MG TABLET PO SCH (21:27)
[2016-11-01] MEDS: INSULIN GLARGINE,HUM.REC.ANLOG 300 UNIT/3 ML INSULN.PEN SUBCUT SCH (22:08)
[2016-11-02] MEDS: LANSOPRAZOLE 15 MG TAB.RAP.DR PO SCH (05:14)
[2016-11-02 06:18] LABS: ANION GAP 12 (5-19); BLOOD UREA NITROGEN 64 mg/dL (7-20); CARBON DIOXIDE 25 mmol/L (22-30); CHLORIDE 104 mmol/L (98-107); GLUCOSE 153 mg/dL (75-110); POTASSIUM 3.5 mmol/L (3.6-5.0); SODIUM 140.9 mmol/L (137-145)
[2016-11-02] MEDS: INSULIN LISPRO 100 UNIT/ML 3 ML VIAL SUBCUT PRN ×4 (08:19→22:15)
[2016-11-02] MEDS: INSULIN LISPRO 100 UNIT/ML 3 ML VIAL SUBCUT SCH ×3 (08:19→16:59)
[2016-11-02] MEDS: NATEGLINIDE 60 MG TABLET PO SCH ×2 (08:19→16:59)
[2016-11-02] MEDS: FERROUS SULFATE 325 MG TABLET PO SCH ×2 (08:19→18:23)
[2016-11-02] MEDS: ACARBOSE 50 MG TABLET PO SCH ×3 (08:19→16:59)
[2016-11-02] MEDS ORDERED: POTASSIUM CHLORIDE 20 MEQ/15 ML UDCUP PO ONE (09:00)
[2016-11-02] MEDS: APIXABAN 2.5 MG TABLET PO SCH ×2 (10:12→21:26)
[2016-11-02] MEDS: AMIODARONE HCL 200 MG TABLET PO SCH ×2 (10:13→21:26)
[2016-11-02] MEDS: DOCUSATE SODIUM 100 MG CAPSULE PO SCH ×2 (10:14→18:24)
[2016-11-02] MEDS: CITALOPRAM HYDROBROMIDE 20 MG TABLET PO SCH (10:14)
[2016-11-02] MEDS: FUROSEMIDE 40 MG TABLET PO SCH (10:14)
[2016-11-02] MEDS: EZETIMIBE 10 MG TABLET PO SCH (10:14)
[2016-11-02] MEDS: METOPROLOL SUCCINATE 25 MG TAB.SR.24H PO SCH (10:15)
--- NOTE | 2016-11-02 12:19 | PDOC PROGRESS REPORT ---
Subjective Progress Note for:: 11/02/16 Subjective:: Patient is feeling much better.Patient still is very weak but physical therapy Patient urine culture is still positive No feverNo chest pain no shortness of the breath Physical Exam Vital Signs: Temp Pulse Resp BP Pulse Ox 98.1 F 66 16 143/73 H 99 11/02/16 07:03 11/02/16 07:03 11/02/16 07:03 11/02/16 07:03 11/02/16 07:03 Intake & Output 11/01/16 11/02/16 11/03/16 06:59 06:59 06:59 Intake Total 984 659 Output Total 1425 1980 Balance -441 -1321 Weight 83.4 kg 83.5 kg General appearance: PRESENT: no acute distress, well-developed, well-nourished Head exam: PRESENT: atraumatic, normocephalic Eye exam: PRESENT: conjunctiva pink, EOMI, PERRLA. ABSENT: scleral icterus Ear exam: PRESENT: normal external ear exam Mouth exam: PRESENT: moist, tongue midline Neck exam: PRESENT: full ROM. ABSENT: carotid bruit, JVD, lymphadenopathy, thyromegaly Respiratory exam: PRESENT: clear to auscultation denita Cardiovascular exam: PRESENT: RRR. ABSENT: diastolic murmur, rubs, systolic murmur Pulses: PRESENT: normal dorsalis pedis pul, +2 pedal pulses bilateral Vascular exam: PRESENT: normal capillary refill GI/Abdominal exam: PRESENT: normal bowel sounds, soft. ABSENT: distended, guarding, mass, organolmegaly, rebound, tenderness Rectal exam: PRESENT: deferred Extremities exam: ABSENT: pedal edema Neurological exam: PRESENT: alert, awake, oriented to person, oriented to place Psychiatric exam: PRESENT: appropriate affect, normal mood. ABSENT: homicidal ideation, suicidal ideation Skin exam: PRESENT: dry, intact, warm. ABSENT: cyanosis, rash Results Laboratory Results: 11/01/16 04:15 11/02/16 04:46 11/02/16 04:46 Sodium 140.9 Potassium 3.5 L Chloride 104 Carbon Dioxide 25 Anion Gap 12 BUN 64 H Creatinine 1.70 H Est GFR ( Amer) 47 L Est GFR (Non-Af Amer) 39 L Glucose 153 H Calcium 9.0 10/25/16 10/25/16 10/26/16 19:55 19:55 02:14 Creatine Kinase 72 61 CK-MB (CK-2) 2.04 Troponin I 0.019 NT-Pro-B Natriuret Pep 10/26/16 10/26/16 10/26/16 02:14 08:00 08:00 Creatine Kinase 45 L CK-MB (CK-2) 1.70 1.55 Troponin I 0.023 0.022 NT-Pro-B Natriuret Pep 10/26/16 08:00 Creatine Kinase CK-MB (CK-2) Troponin I NT-Pro-B Natriuret Pep 7440 H Impressions: Shoulder X-Ray 10/25/16 13:06 IMPRESSION: No evidence for acute fracture or dislocation. There is bony sclerosis involving the scapula at the level of the glenoid and lateral portion of the scapula inferior to the glenoid. The differential possibilities would include metastatic disease or Paget's disease. Clinical correlation is recommended. Other findings as noted above. Body Scan Nuclear Medicine 10/26/16 08:32 IMPRESSION: AREAS OF ACTIVITY SECONDARY TO DEGENERATIVE JOINT DISEASE. NO FINDINGS CONCERNING FOR BONY METASTASES. Abdomen/Pelvis CT 10/27/16 00:00 IMPRESSION: NO ACUTE PROCESS IN THE ABDOMEN OR PELVIS. Other findings as noted above Ankle X-Ray 10/27/16 00:00 IMPRESSION: No acute fracture or dislocation identified. Mild soft tissue swelling noted about the ankles. No radiopaque foreign body. Degenerative changes noted in both feet and ankle joints as described Chest CT 10/27/16 00:00 IMPRESSION: A moderate size right and small left pleural effusions are identified. There is associated airspace consolidation especially on the right most consistent with atelectatic changes although I cannot exclude pneumonic consolidations. Other findings as noted above. Hip X-Ray 10/29/16 00:00 IMPRESSION: No acute fracture. No significant right or left hip joint space narrowing or bony spurring. Degenerative changes lower lumbar spine, prior CT demonstrates multilevel central canal stenosis. Lumbar Spine X-Ray 10/29/16 00:00 IMPRESSION: Multilevel degenerative disc changes, progressive since plain films in 2010 Chest X-Ray 10/30/16 06:00 IMPRESSION: No significant pleural effusions Head CT 10/31/16 09:01 IMPRESSION: CHRONIC CHANGES OF ATROPHY AND MICROVASCULAR ISCHEMIA. NO ACUTE PROCESS. Assessment & Plan - Diagnosis (1) UTI (urinary tract infection) Qualifiers: Urinary tract infection type: acute cystitis Hematuria presence: without hematuria Qualified Code(s): N30.00 - Acute cystitis without hematuria Is this a current diagnosis for this admission?: YesPlan: Start the patient and the p.o. Bactrim (2) Atrial fibrillation Qualifiers: Atrial fibrillation type: chronic Qualified Code(s): I48.2 - Chronic atrial fibrillation Is this a current diagnosis for this admission?: YesPlan: Will cut down the Eliquis dose from 5 mg to 2.5 mg due to the patient H and a chronic kidney disease as per discussed with the Dr. Warren (3) Hypertension Qualifiers: Hypertension type: essential hypertension Qualified Code(s): I10 - Essential (primary) hypertension Is this a current diagnosis for this admission?: YesPlan: Continues to current medications (4) Anemia Qualifiers: Chronic kidney disease stage: stage 3 (moderate) Is this a current diagnosis for this admission?: YesPlan: From chronic kidney disease currently all stable (5) Bladder cancer Qualifiers: Bladder location: unspecified site Qualified Code(s): C67.9 - Malignant neoplasm of bladder, unspecified Is this a current diagnosis for this admission?: YesPlan: Currently all stable (6) Congestive heart failure Qualifiers: Congestive heart failure type: systolic Congestive heart failure chronicity: chronic Qualified Code(s): I50.22 - Chronic systolic ( congestive) heart failure Is this a current diagnosis for this admission?: YesPlan: Continues to p.o. Lasix and the patient's cannot take by p.o. 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 Qualified Code(s): N17.9 - Acute kidney failure, unspecified; N18.9 - Chronic kidney disease, unspecified Is this a current diagnosis for this admission?: YesPlan: Currently stable (8) Generalized weakness Is this a current diagnosis for this admission?: YesPlan: Patient still very weak will continues to physical therapy (9) Coronary artery disease Qualifiers: Coronary Disease-Associated Artery/Lesion type: unspecified vessel or lesion type Is this a current diagnosis for this admission?: YesPlan: We will get the cardiac enzymes every 63 (10) Pacemaker Is this a current diagnosis for this admission?: YesPlan: Will order the interrogation of the pacemaker while the patient is here in consult the cardiology (11) Cellulitis and abscess of lower extremity Is this a current diagnosis for this admission?: Yes (12) Altered mental status Qualifiers: Altered mental status type: unspecified Qualified Code(s): R41.82 - Altered mental status, unspecified Is this a current diagnosis for this admission?: Yes - Time Time Spent with patient: 15-24 minutes Medications reviewed and adjusted accordingly: Yes Anticipated discharge: SNF Within: within 24 hours - Inpatient Certification Medical Necessity: Need Close Monitoring Due to Risk of Patient Decompensation Post Hospital Care: D/C Digital Camera Technician Documentation - Plan Summary Plan Summary: Continues to current medications start the p.o. antibiotic continues to physical therapy and wait for the urine culture and patients probably discharge tomorrow if he remained stable to the detention
--- NOTE | 2016-11-02 13:50 | PDOC TRANSFER SUMMARY ---
General - Admit/Disc Date/PCP Admission Date/Primary Care Provider: 10/25/16 15:35 JACOB SIMPSON MD Discharge Date: 11/02/16 - Discharge Diagnosis (1) UTI (urinary tract infection) Is this a current diagnosis for this admission?: YesSummary: With a gram-negative organism with the finishing the IV antibiotic continues to p.o. antibiotic for the Pseudomonas For the suprapubic catheter and follow with the urology (2) Atrial fibrillation Is this a current diagnosis for this admission?: YesSummary: Continues to Eliquis 2.5 mg p.o. twice a day and continues to amiodarone once a day and a beta-carine (3) Hypertension Is this a current diagnosis for this admission?: YesSummary: Currently stable continues to current medications (4) Anemia Is this a current diagnosis for this admission?: YesSummary: Continues on iron tablets (5) Bladder cancer Is this a current diagnosis for this admission?: YesSummary: Follow-up with the urology at [place] (6) Congestive heart failure Is this a current diagnosis for this admission?: YesSummary: Continues to Lasix 40 mg p.o. daily follow cardiology as outpatients (7) Acute on chronic renal failure Is this a current diagnosis for this admission?: YesSummary: Currently all stable (8) Generalized weakness Is this a current diagnosis for this admission?: YesSummary: Patient's need of physical therapy we currently hold the Lipitor and Zetia for another 2 weeks see them may make it the patient's any difference and reevaluate the patient's to restart the 2 medications (9) Coronary artery disease Is this a current diagnosis for this admission?: YesSummary: Currently follow with the cardiology (10) Pacemaker Is this a current diagnosis for this admission?: YesSummary: Currently stable (11) Cellulitis and abscess of lower extremity Is this a current diagnosis for this admission?: YesSummary: All resolved (12) Altered mental status Is this a current diagnosis for this admission?: YesSummary: Most likely from UTI currently all resolved - Additional Information Resuscitation Status: Do Not Resuscitate Home Medications: Acarbose [Precose 25 mg Tablet] 25 mg PO TID 10/25/16 Amiodarone HCl [Cordarone 200 mg Tablet] 200 mg PO DAILY 10/25/16 Citalopram Hydrobromide [Celexa 20 mg Tablet] 20 mg PO DAILY 10/25/16 Docusate Sodium [Colace 100 mg Capsule] 100 mg PO Q12 10/25/16 Ferrous Sulfate [Iron] 325 mg PO Q12 10/25/16 Furosemide [Lasix] 40 mg PO DAILY 10/25/16 Methocarbamol [Robaxin 500 mg Tablet] 500 mg PO Q12 10/25/16 Metoprolol Succinate [Toprol Xl 25 mg Tab.sr] 12.5 mg PO DAILY 10/25/16 Multivit-Min/FA/Lycopen/Lutein [Men 50 Plus Multivitamin Tab] 1 tab PO DAILY 05/01 Nateglinide [Starlix 60 mg Tablet] 60 mg PO Q12 10/25/16 Nitroglycerin [Nitrostat] 0.4 mg SL Q5MP PRN 10/25/16 Pantoprazole Sodium [Protonix] 20 mg PO DAILY 10/25/16 Apixaban [Eliquis 2.5 mg Tablet] 2.5 mg PO Q12 #0 tablet 11/02/16 Cefuroxime Axetil [Ceftin 250 mg Tablet] 250 mg PO BID #14 tablet 11/02/16 Insulin Lispro [Humalog Insulin (Lispro) 100 unit/mL] 0 - 12 unit SUBCUT ACHSP PRN #0 unit 11/02/16 Nitroglycerin [Nitrostat 0.4 mg (1/150 Gr) Tabs 25/Bottle] 1 tab SL Q5MP PRN #0 bottle 11/02/16 Sulfamethoxazole/Trimethoprim [Septra-Ds 800-160 mg Tablet] 0.5 tab PO BID #14 tablet 11/02/16 History of Present Illness Admission Date/PCP: 10/25/16 15:35 JACOB SIMPSON MD History of Present Illness: DAREK SIMON is a 81 year old male with a significant history of the coronary artery disease and chronic A. fib and history of the pacemaker and recently a pacemaker change out at the [facility]. Patient was noted to have decreased responsiveness and was shaking this morning with cool upper and lower extremities. Patient's daughter check blood sugar and it was noted to be just 55. He was given some juice to drink and he felt better subsequently he ate some sandwiches. Patient however did not look good and therefore was taken to the emergency room. Patient was noted to have lower extremity discomfort. Patients denied any chest pain denied any shortness of the breath. Patient is suspected to have possible UTI, sepsis, cellulitis etc. Dr. Simpson wants me to follow the patient for his underlying cardiac status. 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 The daughter tells me that he has not been seen locally to the best of their knowledge. Patient had a pacemaker battery change out but prior to that, patient had a transesophageal echocardiogram and had a cardioversion. Currently he was placed on amiodarone therapy. Discussed with the patient's current conditions and patient expressed to be a DNR/DNI and daughter understand very well and the patient understand very well patient also have a chronic kidney disease Patient also currently see a Dr. Jeong for that and baseline creatinine is 2.1 This history was reviewed confirmed and supplemented. Hospital Course Hospital Course: This is a 81-year-old male present in the hospital for the generalized weakness and a urinary tract infections and patient was admitting the IMCU for the IV antibiotic and further evaluations . She was also's consult by the cardiology and evaluate the patient's current heart conditions and pacemaker was also interrogated and some medication was adjusted otherwise all stable Patient also seen by the oncology and a bone scan and the CT of the abdomen and pelvis and chest was done and was all currently stablePatient also see outpatients urology for the bladder cancer at [place] Patient's also seen by physical therapy and still very weak suggest unable to go home and needs to send to the rehab for further physical therapy and evaluations Patient's other medical problem including the chronic kidney disease and underlying dementia is all stable Discussed with the patient's family including the all the daughter about patient 's current conditions and the patient's currently medically stable and continues to p.o. antibiotic Patient also wants a DNR and DNI and the family also follow with his wish In the hospitals in the last several months noticed more forgetfulness and started developing more senile dementia Patient is to follow outpatient urology check a CBC and Chem-7 in 1 week Patient due to extreme fall precautions due to the weakness and follow outpatients cardiology Physical Exam Vital Signs: Temp Pulse Resp BP Pulse Ox 98.3 F 63 20 106/56 L 91 L 11/02/16 12:00 11/02/16 12:00 11/02/16 12:00 11/02/16 12:00 11/02/16 12:00 Intake & Output 11/01/16 11/02/16 11/03/16 06:59 06:59 06:59 Intake Total 984 659 355 Output Total 0426 1980 150 Balance -441 -1321 205 Weight 83.4 kg 83.5 kg General appearance: PRESENT: no acute distress, well-developed, well-nourished Head exam: PRESENT: atraumatic, normocephalic Eye exam: PRESENT: conjunctiva pink, EOMI, PERRLA. ABSENT: scleral icterus Ear exam: PRESENT: normal external ear exam Mouth exam: PRESENT: moist, tongue midline Neck exam: ABSENT: carotid bruit, JVD, lymphadenopathy, thyromegaly Respiratory exam: PRESENT: clear to auscultation denita. ABSENT: rales, rhonchi, wheezes Cardiovascular exam: PRESENT: RRR. ABSENT: diastolic murmur, rubs, systolic murmur Pulses: PRESENT: normal dorsalis pedis pul Vascular exam: PRESENT: normal capillary refill GI/Abdominal exam: PRESENT: normal bowel sounds, soft. ABSENT: distended, guarding, mass, organolmegaly, rebound, tenderness Rectal exam: PRESENT: deferred Extremities exam: PRESENT: full ROM. ABSENT: calf tenderness, clubbing, pedal edema Neurological exam: PRESENT: alert, awake, oriented to person, oriented to place , oriented to time, oriented to situation Psychiatric exam: PRESENT: depressed. ABSENT: homicidal ideation, suicidal ideation Skin exam: PRESENT: dry, intact, warm. ABSENT: cyanosis, rash Results Laboratory Results: 11/01/16 04:15 11/02/16 04:46 11/02/16 04:46 Sodium 140.9 Potassium 3.5 L Chloride 104 Carbon Dioxide 25 Anion Gap 12 BUN 64 H Creatinine 1.70 H Est GFR ( Amer) 47 L Est GFR (Non-Af Amer) 39 L Glucose 153 H Calcium 9.0 10/25/16 10/25/16 10/26/16 19:55 19:55 02:14 Creatine Kinase 72 61 CK-MB (CK-2) 2.04 Troponin I 0.019 NT-Pro-B Natriuret Pep 10/26/16 10/26/16 10/26/16 02:14 08:00 08:00 Creatine Kinase 45 L CK-MB (CK-2) 1.70 1.55 Troponin I 0.023 0.022 NT-Pro-B Natriuret Pep 10/26/16 08:00 Creatine Kinase CK-MB (CK-2) Troponin I NT-Pro-B Natriuret Pep 7440 H Impressions: Shoulder X-Ray 10/25/16 13:06 IMPRESSION: No evidence for acute fracture or dislocation. There is bony sclerosis involving the scapula at the level of the glenoid and lateral portion of the scapula inferior to the glenoid. The differential possibilities would include metastatic disease or Paget's disease. Clinical correlation is recommended. Other findings as noted above. Body Scan Nuclear Medicine 10/26/16 08:32 IMPRESSION: AREAS OF ACTIVITY SECONDARY TO DEGENERATIVE JOINT DISEASE. NO FINDINGS CONCERNING FOR BONY METASTASES. Abdomen/Pelvis CT 10/27/16 00:00 IMPRESSION: NO ACUTE PROCESS IN THE ABDOMEN OR PELVIS. Other findings as noted above Ankle X-Ray 10/27/16 00:00 IMPRESSION: No acute fracture or dislocation identified. Mild soft tissue swelling noted about the ankles. No radiopaque foreign body. Degenerative changes noted in both feet and ankle joints as described Chest CT 10/27/16 00:00 IMPRESSION: A moderate size right and small left pleural effusions are identified. There is associated airspace consolidation especially on the right most consistent with atelectatic changes although I cannot exclude pneumonic consolidations. Other findings as noted above. Hip X-Ray 10/29/16 00:00 IMPRESSION: No acute fracture. No significant right or left hip joint space narrowing or bony spurring. Degenerative changes lower lumbar spine, prior CT demonstrates multilevel central canal stenosis. Lumbar Spine X-Ray 10/29/16 00:00 IMPRESSION: Multilevel degenerative disc changes, progressive since plain films in 2010 Chest X-Ray 10/30/16 06:00 IMPRESSION: No significant pleural effusions Head CT 10/31/16 09:01 IMPRESSION: CHRONIC CHANGES OF ATROPHY AND MICROVASCULAR ISCHEMIA. NO ACUTE PROCESS. Transfer Plan - Time Spent with Patient Time spent with patient: Greater than 30 Minutes Plan Time Spent: Greater than 30 Minutes - Patient's discharge to the alf and currently hold the cholesterol medications continues to p.o. antibiotic and a one-week recheck the CBC Chem-7 and urine cultPatient's also had an appointment to see the urology for the ongoing Suprapubic catheter issues and bladder cancer Follow with the cardiology Also check the sed rate in 1 week for further underlying some connective tissues disordersAfter the infection is all controlled Discussed with the daughter about the all the patient's current conditions and overall poor prognosis with the developing underlying dementia is to reevaluate after the patient infection is all coming completely clear
[2016-11-02] MEDS: CEFUROXIME 250 MG TABLET PO SCH (18:23)
[2016-11-02] MEDS: SULFAMETHOXAZOLE/TRIMETHOPRIM 800-160 MG TABLET PO SCH (18:24)
[2016-11-02] MEDS: INSULIN GLARGINE,HUM.REC.ANLOG 300 UNIT/3 ML INSULN.PEN SUBCUT SCH (22:15)
[2016-11-03] MEDS ORDERED: CEFUROXIME 250 MG TABLET ONE (05:36)
[2016-11-03 05:37] LABS: ANION GAP 12 (5-19); BLOOD UREA NITROGEN 58 mg/dL (7-20); CALCIUM 8.9 mg/dL (8.4-10.2); CARBON DIOXIDE 24 mmol/L (22-30); CHLORIDE 106 mmol/L (98-107); CREATININE RESULT 1.73 mg/dL (0.52-1.25); GLUCOSE 206 mg/dL (75-110); POTASSIUM 3.6 mmol/L (3.6-5.0); SODIUM 141.5 mmol/L (137-145)
[2016-11-03] MEDS: LANSOPRAZOLE 15 MG TAB.RAP.DR PO SCH (05:40)
[2016-11-03] MEDS: CEFUROXIME 250 MG TABLET PO SCH ×2 (05:41→17:30)
[2016-11-03] MEDS ORDERED: BISACODYL 10 MG SUPP.RECT PR ONE (09:30)
[2016-11-03] MEDS: INSULIN LISPRO 100 UNIT/ML 3 ML VIAL SUBCUT SCH ×3 (09:42→17:30)
[2016-11-03] MEDS: NATEGLINIDE 60 MG TABLET PO SCH ×2 (09:43→17:30)
[2016-11-03] MEDS: ACARBOSE 50 MG TABLET PO SCH ×3 (09:43→17:30)
[2016-11-03] MEDS: METOPROLOL SUCCINATE 25 MG TAB.SR.24H PO SCH (09:43)
[2016-11-03] MEDS: DOCUSATE SODIUM 100 MG CAPSULE PO SCH ×2 (09:44→17:31)
[2016-11-03] MEDS: FUROSEMIDE 40 MG TABLET PO SCH (09:44)
[2016-11-03] MEDS: FERROUS SULFATE 325 MG TABLET PO SCH ×2 (09:45→17:30)
[2016-11-03] MEDS: AMIODARONE HCL 200 MG TABLET PO SCH ×2 (09:45→22:59)
[2016-11-03] MEDS: APIXABAN 2.5 MG TABLET PO SCH ×2 (09:45→22:59)
[2016-11-03] MEDS: SULFAMETHOXAZOLE/TRIMETHOPRIM 800-160 MG TABLET PO SCH ×2 (09:45→17:30)
[2016-11-03] MEDS: CITALOPRAM HYDROBROMIDE 20 MG TABLET PO SCH (09:45)
--- NOTE | 2016-11-03 11:26 | PDOC PROGRESS REPORT ---
Subjective Progress Note for:: 11/03/16 Subjective:: Patient is currently doing well. Still very weak patient's blood work is all stable. Patient's denied any chest pain denied any shortness of the breath. Physical Exam Vital Signs: Temp Pulse Resp BP Pulse Ox 97.4 F 59 L 16 138/76 H 95 11/03/16 07:42 11/03/16 07:42 11/03/16 07:42 11/03/16 07:42 11/03/16 07:42 Intake & Output 11/02/16 11/03/16 11/04/16 06:59 06:59 06:59 Intake Total 659 1316 Output Total 1980 1850 Balance -1321 -534 Weight 83.5 kg 81.8 kg General appearance: PRESENT: no acute distress, well-developed, well-nourished Head exam: PRESENT: atraumatic, normocephalic Eye exam: PRESENT: conjunctiva pink, EOMI, PERRLA. ABSENT: scleral icterus Ear exam: PRESENT: normal external ear exam Mouth exam: PRESENT: moist, tongue midline Neck exam: PRESENT: full ROM. ABSENT: carotid bruit, JVD, lymphadenopathy, thyromegaly Respiratory exam: PRESENT: clear to auscultation denita Cardiovascular exam: PRESENT: RRR. ABSENT: diastolic murmur, rubs, systolic murmur Pulses: PRESENT: normal dorsalis pedis pul, +2 pedal pulses bilateral Vascular exam: PRESENT: normal capillary refill GI/Abdominal exam: PRESENT: normal bowel sounds, soft. ABSENT: distended, guarding, mass, organolmegaly, rebound, tenderness Additonal comments: Suprapubic catheter site is intact Rectal exam: PRESENT: deferred Neurological exam: PRESENT: alert, awake, oriented to person, oriented to place , oriented to time, oriented to situation, CN II-XII grossly intact. ABSENT: motor sensory deficit Psychiatric exam: PRESENT: appropriate affect, normal mood. ABSENT: homicidal ideation, suicidal ideation Skin exam: PRESENT: dry, intact, warm. ABSENT: cyanosis, rash Results Laboratory Results: 11/01/16 04:15 11/03/16 04:46 11/03/16 11/03/16 04:46 04:46 Sodium 141.5 Potassium 3.6 Chloride 106 Carbon Dioxide 24 Anion Gap 12 BUN 58 H Creatinine 1.73 H Est GFR ( Amer) 46 L Est GFR (Non-Af Amer) 38 L Glucose 206 H Calcium 8.9 Magnesium 2.0 10/31/16 13:20 Suprapubic Catheter Urine Culture - Final Pseudomonas Stutzeri Pseudom Fluoresc/[place] Group Enterococcus Faecalis(Group D) 10/25/16 10/25/16 10/26/16 19:55 19:55 02:14 Creatine Kinase 72 61 CK-MB (CK-2) 2.04 Troponin I 0.019 NT-Pro-B Natriuret Pep 10/26/16 10/26/16 10/26/16 02:14 08:00 08:00 Creatine Kinase 45 L CK-MB (CK-2) 1.70 1.55 Troponin I 0.023 0.022 NT-Pro-B Natriuret Pep 10/26/16 08:00 Creatine Kinase CK-MB (CK-2) Troponin I NT-Pro-B Natriuret Pep 7440 H Impressions: Shoulder X-Ray 10/25/16 13:06 IMPRESSION: No evidence for acute fracture or dislocation. There is bony sclerosis involving the scapula at the level of the glenoid and lateral portion of the scapula inferior to the glenoid. The differential possibilities would include metastatic disease or Paget's disease. Clinical correlation is recommended. Other findings as noted above. Body Scan Nuclear Medicine 10/26/16 08:32 IMPRESSION: AREAS OF ACTIVITY SECONDARY TO DEGENERATIVE JOINT DISEASE. NO FINDINGS CONCERNING FOR BONY METASTASES. Abdomen/Pelvis CT 10/27/16 00:00 IMPRESSION: NO ACUTE PROCESS IN THE ABDOMEN OR PELVIS. Other findings as noted above Ankle X-Ray 10/27/16 00:00 IMPRESSION: No acute fracture or dislocation identified. Mild soft tissue swelling noted about the ankles. No radiopaque foreign body. Degenerative changes noted in both feet and ankle joints as described Chest CT 10/27/16 00:00 IMPRESSION: A moderate size right and small left pleural effusions are identified. There is associated airspace consolidation especially on the right most consistent with atelectatic changes although I cannot exclude pneumonic consolidations. Other findings as noted above. Hip X-Ray 10/29/16 00:00 IMPRESSION: No acute fracture. No significant right or left hip joint space narrowing or bony spurring. Degenerative changes lower lumbar spine, prior CT demonstrates multilevel central canal stenosis. Lumbar Spine X-Ray 10/29/16 00:00 IMPRESSION: Multilevel degenerative disc changes, progressive since plain films in 2010 Chest X-Ray 10/30/16 06:00 IMPRESSION: No significant pleural effusions Head CT 10/31/16 09:01 IMPRESSION: CHRONIC CHANGES OF ATROPHY AND MICROVASCULAR ISCHEMIA. NO ACUTE PROCESS. Assessment & Plan - Diagnosis (1) UTI (urinary tract infection) Qualifiers: Urinary tract infection type: acute cystitis Hematuria presence: without hematuria Qualified Code(s): N30.00 - Acute cystitis without hematuria Is this a current diagnosis for this admission?: YesPlan: Continues to p.o. antibiotic (2) Atrial fibrillation Qualifiers: Atrial fibrillation type: chronic Qualified Code(s): I48.2 - Chronic atrial fibrillation Is this a current diagnosis for this admission?: YesPlan: Will cut down the Eliquis dose from 5 mg to 2.5 mg due to the patient H and a chronic kidney disease as per discussed with the Dr. Warren (3) Hypertension Qualifiers: Hypertension type: essential hypertension Qualified Code(s): I10 - Essential (primary) hypertension Is this a current diagnosis for this admission?: YesPlan: Continues to current medications (4) Anemia Qualifiers: Chronic kidney disease stage: stage 3 (moderate) Is this a current diagnosis for this admission?: YesPlan: From chronic kidney disease currently all stable (5) Bladder cancer Qualifiers: Bladder location: unspecified site Qualified Code(s): C67.9 - Malignant neoplasm of bladder, unspecified Is this a current diagnosis for this admission?: YesPlan: Currently all stable (6) Congestive heart failure Qualifiers: Congestive heart failure type: systolic Congestive heart failure chronicity: chronic Qualified Code(s): I50.22 - Chronic systolic ( congestive) heart failure Is this a current diagnosis for this admission?: YesPlan: Continues to p.o. Lasix and the patient's cannot take by p.o. 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 Qualified Code(s): N17.9 - Acute kidney failure, unspecified; N18.9 - Chronic kidney disease, unspecified Is this a current diagnosis for this admission?: YesPlan: Currently stable (8) Generalized weakness Is this a current diagnosis for this admission?: YesPlan: Patient still very weak will continues to physical therapy (9) Coronary artery disease Qualifiers: Coronary Disease-Associated Artery/Lesion type: unspecified vessel or lesion type Is this a current diagnosis for this admission?: YesPlan: We will get the cardiac enzymes every 63 (10) Pacemaker Is this a current diagnosis for this admission?: YesPlan: Will order the interrogation of the pacemaker while the patient is here in consult the cardiology (11) Cellulitis and abscess of lower extremity Is this a current diagnosis for this admission?: Yes (12) Altered mental status Qualifiers: Altered mental status type: unspecified Qualified Code(s): R41.82 - Altered mental status, unspecified Is this a current diagnosis for this admission?: YesPlan: At this point all the test is negative when patient ABG was most likely is suggesting the hyperventilating. Patient is back to the normal - Time Time Spent with patient: 15-24 minutes Medications reviewed and adjusted accordingly: Yes Anticipated discharge: SNF Within: when bed available - Inpatient Certification Medical Necessity: Need Close Monitoring Due to Risk of Patient Decompensation Post Hospital Care: D/C Operations Support Representative Documentation - Plan Summary Plan Summary: Discussed with the daughter about the patient's current condition on discharge discussed with the patient also. Patient's to Fall precautions still very weak.Patient's need of physical therapy daily and patients follow outpatient urology and cardiology
--- NOTE | 2016-11-03 18:46 | PDOC PROGRESS REPORT ---
Subjective Progress Note for:: 11/03/16 Subjective:: I was reconsulted because of abnormal rhythm noted on rhythm strip. There is suspicion that patient may have pacemaker dysfunction. Patient had a recent pacemaker placed after cardioversion. However patient seems to be still in atrial fibrillation. He is now pacing in the ventricle much more frequently.. Pt is denying any chest arm or neck discomfort. Patient denying any PND, orthopnea. Patient denied any sustained palpitations, dizziness, syncope, near syncope. Patient denying any fever chills. Patient denying any other significant discomfort. Patient is maintaining ventricular paced rhythm Review of systems: Rest review of systems negative. Medications: Medications have been reviewed. Physical Exam Vital Signs: Temp Pulse Resp BP Pulse Ox 98.0 F 60 17 140/62 H 93 11/03/16 12:24 11/03/16 14:00 11/03/16 12:24 11/03/16 12:24 11/03/16 12:24 Intake & Output 11/02/16 11/03/16 11/04/16 06:59 06:59 06:59 Intake Total 659 1316 Output Total 1980 1850 Balance -1321 -534 Weight 83.5 kg 81.8 kg Exam: GENERAL: well-nourished and in no acute distress. Alert and oriented x3. Patient today oriented. HEAD: Atraumatic, normocephalic. EYES: Pupils equal round and reactive to light, extraocular movements intact, sclera anicteric, conjunctiva are normal. ENT: TMs normal, nares patent, oropharynx clear without exudates. Moist mucous membranes. No oral ulcerations or bleeding gums noted NECK: supple without lymphadenopathy. Trachea is central. No cervical or axillary lymphadenopathy noted. Carotids are 2+, JVD WNL LUNGS: Respiration seems nonlabored, no significant accessory muscle action noted. Breath sounds clear to auscultation bilaterally and equal noted. No wheezes rales or rhonchi noted. No significant dullness noted on percussion. CHEST: Palpation of the chest wall shows no significant chest wall tenderness. No other significant abnormalities noted. 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 ABDOMEN: Soft, no significant tenderness appreciated, normoactive bowel sounds. No guarding, no rebound. No rigidity noted . No masses appreciated. EXTREMITIES: Pedal pulses are diminished left more than right, no calf tenderness noted. No clubbing or cyanosis. 1+ pedal edema noted NEUROLOGICAL: Focused neurological exam showed no significant neurologic deficit. Normal speech, no focal weakness appreciated. PSYCH: Normal mood, normal affect. Judgment and insight within normal limits. SKIN: No significant ecchymosis, dermatitis rash and superficial ulcerations noted both legs. MUSCULOSKELETAL EXAM: No significant joint swelling noted. Results Laboratory Results: 11/01/16 04:15 11/03/16 04:46 11/03/16 11/03/16 04:46 04:46 Sodium 141.5 Potassium 3.6 Chloride 106 Carbon Dioxide 24 Anion Gap 12 BUN 58 H Creatinine 1.73 H Est GFR ( Amer) 46 L Est GFR (Non-Af Amer) 38 L Glucose 206 H Calcium 8.9 Magnesium 2.0 10/31/16 13:20 Suprapubic Catheter Urine Culture - Final Pseudomonas Stutzeri Pseudom Fluoresc/[place] Group Enterococcus Faecalis(Group D) 10/25/16 10/25/16 10/26/16 19:55 19:55 02:14 Creatine Kinase 72 61 CK-MB (CK-2) 2.04 Troponin I 0.019 NT-Pro-B Natriuret Pep 10/26/16 10/26/16 10/26/16 02:14 08:00 08:00 Creatine Kinase 45 L CK-MB (CK-2) 1.70 1.55 Troponin I 0.023 0.022 NT-Pro-B Natriuret Pep 10/26/16 08:00 Creatine Kinase CK-MB (CK-2) Troponin I NT-Pro-B Natriuret Pep 7440 H Impressions: Shoulder X-Ray 10/25/16 13:06 IMPRESSION: No evidence for acute fracture or dislocation. There is bony sclerosis involving the scapula at the level of the glenoid and lateral portion of the scapula inferior to the glenoid. The differential possibilities would include metastatic disease or Paget's disease. Clinical correlation is recommended. Other findings as noted above. Body Scan Nuclear Medicine 10/26/16 08:32 IMPRESSION: AREAS OF ACTIVITY SECONDARY TO DEGENERATIVE JOINT DISEASE. NO FINDINGS CONCERNING FOR BONY METASTASES. Abdomen/Pelvis CT 10/27/16 00:00 IMPRESSION: NO ACUTE PROCESS IN THE ABDOMEN OR PELVIS. Other findings as noted above Ankle X-Ray 10/27/16 00:00 IMPRESSION: No acute fracture or dislocation identified. Mild soft tissue swelling noted about the ankles. No radiopaque foreign body. Degenerative changes noted in both feet and ankle joints as described Chest CT 10/27/16 00:00 IMPRESSION: A moderate size right and small left pleural effusions are identified. There is associated airspace consolidation especially on the right most consistent with atelectatic changes although I cannot exclude pneumonic consolidations. Other findings as noted above. Hip X-Ray 10/29/16 00:00 IMPRESSION: No acute fracture. No significant right or left hip joint space narrowing or bony spurring. Degenerative changes lower lumbar spine, prior CT demonstrates multilevel central canal stenosis. Lumbar Spine X-Ray 10/29/16 00:00 IMPRESSION: Multilevel degenerative disc changes, progressive since plain films in 2010 Chest X-Ray 10/30/16 06:00 IMPRESSION: No significant pleural effusions Head CT 10/31/16 09:01 IMPRESSION: CHRONIC CHANGES OF ATROPHY AND MICROVASCULAR ISCHEMIA. NO ACUTE PROCESS. Assessment & Plan - Diagnosis (1) Coronary artery disease Qualifiers: Coronary Disease-Associated Artery/Lesion type: unspecified vessel or lesion type Is this a current diagnosis for this admission?: Yes (2) Generalized weakness Is this a current diagnosis for this admission?: Yes (3) Pacemaker Is this a current diagnosis for this admission?: Yes (4) Cellulitis of lower extremity Qualifiers: Laterality: unspecified laterality Qualified Code(s): L03.119 - Cellulitis of unspecified part of limb Is this a current diagnosis for this admission?: Yes (5) Hypertension Qualifiers: Hypertension type: essential hypertension Qualified Code(s): I10 - Essential (primary) hypertension Is this a current diagnosis for this admission?: Yes (6) UTI (urinary tract infection) Qualifiers: Urinary tract infection type: acute cystitis Hematuria presence: without hematuria Qualified Code(s): N30.00 - Acute cystitis without hematuria Is this a current diagnosis for this admission?: Yes (7) Atrial fibrillation Qualifiers: Atrial fibrillation type: chronic Qualified Code(s): I48.2 - Chronic atrial fibrillation Is this a current diagnosis for this admission?: Yes - Notes Notes: Status post pacemaker placement: No evidence of pacemaker site infection noted.. Pacemaker noted to be functioning normally but underlying atrial rhythm cannot be assessed accurately and is felt to be atrial fibrillation. Pacemaker programming checked and reviewed. It seems pacemaker is functioning as programmed and is functioning normally.. Will repeat an EKG in the morning just to check underlying rhythm. Atrial fibrillation: Continue amiodarone therapy. Continue chronic anticoagulation. Cellulitis of the lower extremity: Continue antibiotic therapy. Hypertension: Blood pressure under reasonable control. Urinary tract infection: Continue antibiotic therapy. Coronary artery disease: Patient is symptomatically stable. At this point no evaluation planned. Sleep apnea syndrome: Patient will use nightly CPAP therapy. We will continue to follow patient. - Time Time with patient: Greater than 35 minutes - CODE STATUS : was discussed, patient remains DO NOT RESUSCITATE. Surrogate decision-maker unchanged. Multiple medical problems were addressed. More than 50% of the time spent coordinating care, discussing management plans with involved caregivers. Management plans discussed with involved personnels. Medical decision making was of moderate to high complexity, patient's has multiple comorbidities. Significant time spent looking at all the rhythm strips and also review pacemaker interrogation. Medications reviewed and adjusted accordingly: Yes
[2016-11-03] MEDS: INSULIN LISPRO 100 UNIT/ML 3 ML VIAL SUBCUT PRN (22:59)
[2016-11-03] MEDS: INSULIN GLARGINE,HUM.REC.ANLOG 300 UNIT/3 ML INSULN.PEN SUBCUT SCH (23:00)
[2016-11-04] MEDS: CEFUROXIME 250 MG TABLET PO SCH ×2 (06:23→18:02)
[2016-11-04] MEDS: LANSOPRAZOLE 15 MG TAB.RAP.DR PO SCH (06:23)
[2016-11-04] MEDS: ACARBOSE 50 MG TABLET PO SCH ×3 (08:00→16:41)
[2016-11-04] MEDS: NATEGLINIDE 60 MG TABLET PO SCH ×2 (08:00→16:41)
[2016-11-04] MEDS: INSULIN LISPRO 100 UNIT/ML 3 ML VIAL SUBCUT SCH ×3 (08:00→16:41)
[2016-11-04] MEDS: FERROUS SULFATE 325 MG TABLET PO SCH ×2 (08:49→18:02)
--- NOTE | 2016-11-04 09:39 | PDOC PROGRESS REPORT ---
Subjective Progress Note for:: 11/04/16 Subjective:: Patient is currently doing well. Patient's denied any chest pain denied any shortness of the breathPatient seen by the cardiology yesterday and was all stablePatients waiting for the bed to transfer to the rehab Physical Exam Vital Signs: Temp Pulse Resp BP Pulse Ox 97.4 F 60 16 153/71 H 96 11/04/16 07:17 11/04/16 07:17 11/04/16 07:17 11/04/16 07:17 11/04/16 07:17 Intake & Output 11/03/16 11/04/16 11/05/16 06:59 06:59 06:59 Intake Total 1316 620 Output Total 1850 2125 Balance -534 -1505 Weight 81.8 kg 78.6 kg General appearance: PRESENT: no acute distress, well-developed, well-nourished Head exam: PRESENT: atraumatic, normocephalic Eye exam: PRESENT: conjunctiva pink, EOMI, PERRLA. ABSENT: scleral icterus Ear exam: PRESENT: normal external ear exam Mouth exam: PRESENT: moist, tongue midline Neck exam: PRESENT: full ROM. ABSENT: carotid bruit, JVD, lymphadenopathy, thyromegaly Respiratory exam: PRESENT: clear to auscultation denita Cardiovascular exam: PRESENT: RRR. ABSENT: diastolic murmur, rubs, systolic murmur Pulses: PRESENT: normal dorsalis pedis pul, +2 pedal pulses bilateral Vascular exam: PRESENT: normal capillary refill GI/Abdominal exam: PRESENT: normal bowel sounds, soft. ABSENT: distended, guarding, mass, organolmegaly, rebound, tenderness Rectal exam: PRESENT: deferred Neurological exam: PRESENT: alert, awake, oriented to person, oriented to place , oriented to time, oriented to situation, CN II-XII grossly intact. ABSENT: motor sensory deficit Psychiatric exam: PRESENT: appropriate affect, normal mood. ABSENT: homicidal ideation, suicidal ideation Skin exam: PRESENT: dry, intact, warm. ABSENT: cyanosis, rash Results Laboratory Results: 11/01/16 04:15 11/03/16 04:46 10/31/16 13:20 Suprapubic Catheter Urine Culture - Final Pseudomonas Stutzeri Pseudom Fluoresc/[place] [facility] Enterococcus Faecalis(Group D) 10/25/16 10/25/1617 19:55 19:55 02:14 Creatine Kinase 72 61 CK-MB (CK-2) 2.04 Troponin I 0.019 NT-Pro-B Natriuret Pep 10/26/16 10/26/16 10/26/16 02:14 08:00 08:00 Creatine Kinase 45 L CK-MB (CK-2) 1.70 1.55 Troponin I 0.023 0.022 NT-Pro-B Natriuret Pep 10/26/16 08:00 Creatine Kinase CK-MB (CK-2) Troponin I NT-Pro-B Natriuret Pep 7440 H Impressions: Shoulder X-Ray 10/25/16 13:06 IMPRESSION: No evidence for acute fracture or dislocation. There is bony sclerosis involving the scapula at the level of the glenoid and lateral portion of the scapula inferior to the glenoid. The differential possibilities would include metastatic disease or Paget's disease. Clinical correlation is recommended. Other findings as noted above. Body Scan Nuclear Medicine 10/26/16 08:32 IMPRESSION: AREAS OF ACTIVITY SECONDARY TO DEGENERATIVE JOINT DISEASE. NO FINDINGS CONCERNING FOR BONY METASTASES. Abdomen/Pelvis CT 10/27/16 00:00 IMPRESSION: NO ACUTE PROCESS IN THE ABDOMEN OR PELVIS. Other findings as noted above Ankle X-Ray 10/27/16 00:00 IMPRESSION: No acute fracture or dislocation identified. Mild soft tissue swelling noted about the ankles. No radiopaque foreign body. Degenerative changes noted in both feet and ankle joints as described Chest CT 10/27/16 00:00 IMPRESSION: A moderate size right and small left pleural effusions are identified. There is associated airspace consolidation especially on the right most consistent with atelectatic changes although I cannot exclude pneumonic consolidations. Other findings as noted above. Hip X-Ray 10/29/16 00:00 IMPRESSION: No acute fracture. No significant right or left hip joint space narrowing or bony spurring. Degenerative changes lower lumbar spine, prior CT demonstrates multilevel central canal stenosis. Lumbar Spine X-Ray 10/29/16 00:00 IMPRESSION: Multilevel degenerative disc changes, progressive since plain films in 2010 Chest X-Ray 10/30/16 06:00 IMPRESSION: No significant pleural effusions Head CT 10/31/16 09:01 IMPRESSION: CHRONIC CHANGES OF ATROPHY AND MICROVASCULAR ISCHEMIA. NO ACUTE PROCESS. Assessment & Plan - Diagnosis (1) UTI (urinary tract infection) Qualifiers: Urinary tract infection type: acute cystitis Hematuria presence: without hematuria Qualified Code(s): N30.00 - Acute cystitis without hematuria Is this a current diagnosis for this admission?: YesPlan: Continues to p.o. antibiotic (2) Atrial fibrillation Qualifiers: Atrial fibrillation type: chronic Qualified Code(s): I48.2 - Chronic atrial fibrillation Is this a current diagnosis for this admission?: YesPlan: Will cut down the Eliquis dose from 5 mg to 2.5 mg due to the patient H and a chronic kidney disease as per discussed with the Dr. Warren (3) Hypertension Qualifiers: Hypertension type: essential hypertension Qualified Code(s): I10 - Essential (primary) hypertension Is this a current diagnosis for this admission?: YesPlan: Continues to current medications (4) Anemia Qualifiers: Chronic kidney disease stage: stage 3 (moderate) Is this a current diagnosis for this admission?: YesPlan: From chronic kidney disease currently all stable (5) Bladder cancer Qualifiers: Bladder location: unspecified site Qualified Code(s): C67.9 - Malignant neoplasm of bladder, unspecified Is this a current diagnosis for this admission?: YesPlan: Currently all stable (6) Congestive heart failure Qualifiers: Congestive heart failure type: systolic Congestive heart failure chronicity: chronic Qualified Code(s): I50.22 - Chronic systolic ( congestive) heart failure Is this a current diagnosis for this admission?: YesPlan: Continues to p.o. Lasix and the patient's cannot take by p.o. 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 Qualified Code(s): N17.9 - Acute kidney failure, unspecified; N18.9 - Chronic kidney disease, unspecified Is this a current diagnosis for this admission?: YesPlan: Currently stable (8) Generalized weakness Is this a current diagnosis for this admission?: YesPlan: Patient still very weak will continues to physical therapy (9) Coronary artery disease Qualifiers: Coronary Disease-Associated Artery/Lesion type: unspecified vessel or lesion type Is this a current diagnosis for this admission?: YesPlan: We will get the cardiac enzymes every 63 (10) Pacemaker Is this a current diagnosis for this admission?: Yes (11) Cellulitis and abscess of lower extremity Is this a current diagnosis for this admission?: Yes (12) Altered mental status Qualifiers: Altered mental status type: unspecified Qualified Code(s): R41.82 - Altered mental status, unspecified Is this a current diagnosis for this admission?: Yes - Time Time Spent with patient: 15-24 minutes Medications reviewed and adjusted accordingly: Yes Anticipated discharge: SNF Within: when bed available - Plan Summary Plan Summary: Continues current medications
[2016-11-04] MEDS: SULFAMETHOXAZOLE/TRIMETHOPRIM 800-160 MG TABLET PO SCH ×2 (09:58→18:02)
[2016-11-04] MEDS: DOCUSATE SODIUM 100 MG CAPSULE PO SCH ×2 (09:58→18:02)
[2016-11-04] MEDS: AMIODARONE HCL 200 MG TABLET PO SCH ×2 (09:58→21:55)
[2016-11-04] MEDS: METOPROLOL SUCCINATE 25 MG TAB.SR.24H PO SCH (09:58)
[2016-11-04] MEDS: APIXABAN 2.5 MG TABLET PO SCH ×2 (09:58→21:55)
[2016-11-04] MEDS: CITALOPRAM HYDROBROMIDE 20 MG TABLET PO SCH (09:58)
[2016-11-04] MEDS: FUROSEMIDE 40 MG TABLET PO SCH (09:59)
--- NOTE | 2016-11-04 10:59 | PDOC PROGRESS REPORT ---
Subjective Progress Note for:: 11/04/16 Subjective:: Patient seems to be about the same as yesterday. Pt is denying any chest arm or neck discomfort. Patient denying any PND, orthopnea. Patient denied any sustained palpitations, dizziness, syncope, near syncope. Patient denying any fever chills. Patient denying any other significant discomfort. Patient is maintaining intermittent paced rhythm. Underlying atrial rhythm. Will order a EKG. Review of systems: Rest review of systems negative. Medications: Medications have been reviewed. Physical Exam Vital Signs: Temp Pulse Resp BP Pulse Ox 97.4 F 60 16 153/71 H 96 11/04/16 07:17 11/04/16 07:17 11/04/16 07:17 11/04/16 07:17 11/04/16 07:17 Intake & Output 11/03/16 11/04/16 11/05/16 06:59 06:59 06:59 Intake Total 1316 620 Output Total 1850 2125 Balance -534 -1505 Weight 81.8 kg 78.6 kg Exam: GENERAL: well-nourished and in no acute distress. Alert and oriented x 2 HEAD: Atraumatic, normocephalic. EYES: Pupils equal round and reactive to light, extraocular movements intact, sclera anicteric, conjunctiva are normal. ENT: TMs normal, nares patent, oropharynx clear without exudates. Moist mucous membranes. No oral ulcerations or bleeding gums noted NECK: supple without lymphadenopathy. Trachea is central. No cervical or axillary lymphadenopathy noted. Carotids are 2+, JVD WNL LUNGS: Respiration seems nonlabored, no significant accessory muscle action noted. Breath sounds clear to auscultation bilaterally and equal noted. No wheezes rales or rhonchi noted. No significant dullness noted on percussion. CHEST: Palpation of the chest wall shows no significant chest wall tenderness. No other significant abnormalities noted. Pacemaker noted on the left side. 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 ABDOMEN: Soft, no significant tenderness appreciated, normoactive bowel sounds. No guarding, no rebound. No rigidity noted . No masses appreciated. EXTREMITIES: Pedal pulses are 1-2+, no calf tenderness noted. No clubbing or cyanosis.trace to 1+ pedal edema noted NEUROLOGICAL: Focused neurological exam showed no significant neurologic deficit. Normal speech, no focal weakness appreciated. PSYCH: Normal mood, normal affect. Judgment and insight within normal limits. SKIN: No significant ecchymosis, rash, ulcerations or signs of pruritus noted. MUSCULOSKELETAL EXAM: No significant joint swelling noted. Results Laboratory Results: 11/01/16 04:15 11/03/16 04:46 10/31/16 13:20 Suprapubic Catheter Urine Culture - Final Pseudomonas Stutzeri Pseudom Fluoresc/[place] [facility] Enterococcus Faecalis(Group D) 10/25/16 10/25/16 10/26/16 19:55 19:55 02:14 Creatine Kinase 72 61 CK-MB (CK-2) 2.04 Troponin I 0.019 NT-Pro-B Natriuret Pep 10/26/16 10/26/16 10/26/16 02:14 08:00 08:00 Creatine Kinase 45 L CK-MB (CK-2) 1.70 1.55 Troponin I 0.023 0.022 NT-Pro-B Natriuret Pep 10/26/16 08:00 Creatine Kinase CK-MB (CK-2) Troponin I NT-Pro-B Natriuret Pep 7440 H Impressions: Shoulder X-Ray 10/25/16 13:06 IMPRESSION: No evidence for acute fracture or dislocation. There is bony sclerosis involving the scapula at the level of the glenoid and lateral portion of the scapula inferior to the glenoid. The differential possibilities would include metastatic disease or Paget's disease. Clinical correlation is recommended. Other findings as noted above. Body Scan Nuclear Medicine 10/26/16 08:32 IMPRESSION: AREAS OF ACTIVITY SECONDARY TO DEGENERATIVE JOINT DISEASE. NO FINDINGS CONCERNING FOR BONY METASTASES. Abdomen/Pelvis CT 10/27/16 00:00 IMPRESSION: NO ACUTE PROCESS IN THE ABDOMEN OR PELVIS. Other findings as noted above Ankle X-Ray 10/27/16 00:00 IMPRESSION: No acute fracture or dislocation identified. Mild soft tissue swelling noted about the ankles. No radiopaque foreign body. Degenerative changes noted in both feet and ankle joints as described Chest CT 10/27/16 00:00 IMPRESSION: A moderate size right and small left pleural effusions are identified. There is associated airspace consolidation especially on the right most consistent with atelectatic changes although I cannot exclude pneumonic consolidations. Other findings as noted above. Hip X-Ray 10/29/16 00:00 IMPRESSION: No acute fracture. No significant right or left hip joint space narrowing or bony spurring. Degenerative changes lower lumbar spine, prior CT demonstrates multilevel central canal stenosis. Lumbar Spine X-Ray 10/29/16 00:00 IMPRESSION: Multilevel degenerative disc changes, progressive since plain films in 2010 Chest X-Ray 10/30/16 06:00 IMPRESSION: No significant pleural effusions Head CT 10/31/16 09:01 IMPRESSION: CHRONIC CHANGES OF ATROPHY AND MICROVASCULAR ISCHEMIA. NO ACUTE PROCESS. Assessment & Plan - Diagnosis (1) Coronary artery disease Qualifiers: Coronary Disease-Associated Artery/Lesion type: unspecified vessel or lesion type Is this a current diagnosis for this admission?: Yes (2) Generalized weakness Is this a current diagnosis for this admission?: Yes (3) Pacemaker Is this a current diagnosis for this admission?: Yes (4) Cellulitis of lower extremity Qualifiers: Laterality: unspecified laterality Qualified Code(s): L03.119 - Cellulitis of unspecified part of limb Is this a current diagnosis for this admission?: Yes (5) Hypertension Qualifiers: Hypertension type: essential hypertension Qualified Code(s): I10 - Essential (primary) hypertension Is this a current diagnosis for this admission?: Yes (6) UTI (urinary tract infection) Qualifiers: Urinary tract infection type: acute cystitis Hematuria presence: without hematuria Qualified Code(s): N30.00 - Acute cystitis without hematuria Is this a current diagnosis for this admission?: Yes (7) Atrial fibrillation Qualifiers: Atrial fibrillation type: chronic Qualified Code(s): I48.2 - Chronic atrial fibrillation Is this a current diagnosis for this admission?: Yes - Notes Notes: orthopedics pediatric physician, this was reviewed. Twelve-lead EKG, these were reviewed. Chest x-ray: Results reviewed. Medications: These were reviewed. Labs: These were reviewed. Treatment/care plan: This was reviewed and discussed with involved personnel in the care of this patient and patient. Status post pacemaker placement: No evidence of pacemaker site infection noted.. Pacemaker noted to be functioning normally but underlying atrial rhythm cannot be assessed accurately and is felt to be atrial fibrillation. It seems pacemaker is functioning as programmed and is functioning normally.. Will repeat an EKG today just to check underlying rhythm. Atrial fibrillation: Continue amiodarone therapy. Continue chronic anticoagulation. Cellulitis of the lower extremity: Continue antibiotic therapy. Seems improving. Hypertension: Blood pressure under reasonable control. Urinary tract infection: Continue antibiotic therapy. Coronary artery disease: Patient is symptomatically stable. At this point no evaluation planned. Sleep apnea syndrome: Patient will use nightly CPAP therapy. Chronic kidney disease: Renal functions noted to be stable. We will continue to follow patient. - Time Time with patient: Greater than 35 minutes - CODE STATUS : was discussed, patient remains DO NOT RESUSCITATE. Surrogate decision-maker unchanged. Multiple medical problems were addressed. More than 50% of the time spent coordinating care, discussing management plans with involved caregivers. Management plans discussed with involved personnels. Medical decision making was of moderate to high complexity, patient's has multiple comorbidities. Significant time spent looking at all the rhythm strips and also review pacemaker interrogation. - Time Time with patient: 15-25 minutes - CODE STATUS was discussed, patient remains full code. Surrogate decision-maker unchanged. Multiple medical problems were addressed. More than 50% of the time spent coordinating care, discussing management plans with involved caregivers. Management plans discussed with involved personnels. Medical decision making was of moderate to high complexity , patient's has multiple comorbidities. Medications reviewed and adjusted accordingly: Yes
[2016-11-04] MEDS: INSULIN LISPRO 100 UNIT/ML 3 ML VIAL SUBCUT PRN ×2 (16:41→21:55)
[2016-11-04] MEDS: INSULIN GLARGINE,HUM.REC.ANLOG 300 UNIT/3 ML INSULN.PEN SUBCUT SCH (21:55)
--- NOTE | 2016-11-05 03:57 | EKG REPORT ---
SEVERITY:- ABNORMAL ECG - SINUS RHYTHM FIRST DEGREE AV BLOCK NONSPECIFIC INTRAVENTRICULAR CONDUCTION DELAY ST DEPRESSION, CONSIDER ISCHEMIA, ANT-LAT LDS : Confirmed by: Terri Cottrell MD 05-Nov-2016 03:55:58
[2016-11-05] MEDS: CEFUROXIME 250 MG TABLET PO SCH (05:58)
[2016-11-05] MEDS: LANSOPRAZOLE 15 MG TAB.RAP.DR PO SCH (05:58)
[2016-11-05] MEDS: INSULIN LISPRO 100 UNIT/ML 3 ML VIAL SUBCUT SCH ×3 (09:30→16:47)
[2016-11-05] MEDS: APIXABAN 2.5 MG TABLET PO SCH (09:30)
[2016-11-05] MEDS: FERROUS SULFATE 325 MG TABLET PO SCH (09:31)
[2016-11-05] MEDS: CITALOPRAM HYDROBROMIDE 20 MG TABLET PO SCH (09:31)
[2016-11-05] MEDS: NATEGLINIDE 60 MG TABLET PO SCH ×2 (09:31→16:47)
[2016-11-05] MEDS: FUROSEMIDE 40 MG TABLET PO SCH (09:31)
[2016-11-05] MEDS: SULFAMETHOXAZOLE/TRIMETHOPRIM 800-160 MG TABLET PO SCH (09:32)
[2016-11-05] MEDS: AMIODARONE HCL 200 MG TABLET PO SCH (09:32)
[2016-11-05] MEDS: ACARBOSE 50 MG TABLET PO SCH ×3 (09:33→16:47)
[2016-11-05] MEDS: METOPROLOL SUCCINATE 25 MG TAB.SR.24H PO SCH (09:33)
[2016-11-05] MEDS: DOCUSATE SODIUM 100 MG CAPSULE PO SCH (09:33)
[2016-11-05] MEDS: INSULIN LISPRO 100 UNIT/ML 3 ML VIAL SUBCUT PRN (12:07)
[2016-11-05 16:56] VITALS: BP 129/59
== END 2016-11-05 17:19 | DRG 690 ==
LOC: ER 12:40 → EH 15:35 → UNDOADMIN 15:48 → 3W 19:28
PROVIDERS: ADMIT Family Medicine; ATTEND Family Medicine
DX: N30.00 Acute cystitis without hematuria (principal); I13.0 Hypertensive heart and chronic kidney disease with heart failure and stage 1 through stage 4 chronic kidney disease, or unspecified chronic kidney disease; I50.22 Chronic systolic (congestive) heart failure; L03.116 Cellulitis of left lower limb; L03.115 Cellulitis of right lower limb; L02.416 Cutaneous abscess of left lower limb; L02.415 Cutaneous abscess of right lower limb; N17.9 Acute kidney failure, unspecified; I48.2 Chronic atrial fibrillation; N18.9 Chronic kidney disease, unspecified; D63.1 Anemia in chronic kidney disease; C67.9 Malignant neoplasm of bladder, unspecified; I25.10 Atherosclerotic heart disease of native coronary artery without angina pectoris; Z95.0 Presence of cardiac pacemaker; Z66 Do not resuscitate; Z79.899 Other long term (current) drug therapy; Z79.4 Long term (current) use of insulin; Z88.1 Allergy status to other antibiotic agents
CPT/HCPCS: 36415; 51702; 70450; 71010; 71250; 72100; 73522; 74176; 78306; 80048; 80053; 80076; 81001; 82140; 82378; 82550; 82553; 82607; 82728; 82746; 82803; 82962; 83540; 83550; 83605; 83735; 83880; 84439; 84443; 84466; 84481; 84484; 85025; 85027; 85045; 85610; 85652; 86038; 86320; 86430; 87040; 87070; 87077; 87086; 87088; 87186; 87205; 93005; 93010; 93925; 93971; 96360; 99285; A9561; G8978-GP; G8979-GP; J0282; J0692; J0696; J1160; J1815; J1940; J2270; J2405; J3480; J3490; J7030; Q0138; Q9969

== ENCOUNTER → 2017-10-24 | Outpatient (CLI) | payer MEDICARE, OTHER | LOC: PNR 11:32 | PROVIDERS: ATTEND Internal Medicine | DX: E11.9 Type 2 diabetes mellitus without complications (principal) | CPT/HCPCS: 83036 ==

== ENCOUNTER 2017-11-11 20:43 | Inpatient (IN) | payer MEDICARE, OTHER ==
[2017-11-11 21:37] LABS: ABSOLUTE BASOPHILS # (AUTO) 0.1 10^3/uL (0.0-0.2); ABSOLUTE EOSINOPHILS # (AUTO) 0.2 10^3/uL (0.0-0.6); ABSOLUTE MONOCYTES (AUTO) 1.2 10^3/uL (0.1-1.4); ABSOLUTE NEUT (AUTO) 11.7 10^3/uL (1.7-8.2); BASOPHILS % (AUTO) 0.7 % (0-2); EOSINOPHILS % (AUTO) 1.4 % (0-6); HEMATOCRIT 36.3 % (37.9-51.0); HEMOGLOBIN 11.9 g/dL (13.5-17.0); LYMPHOCYTES % (AUTO) 7.2 % (13-45); MEAN CORPUSCULAR HEMOGLOBIN 26.3 pg (27.0-33.4); MEAN CORPUSCULAR HGB CONC 32.7 g/dL (32.0-36.0); MEAN CORPUSCULAR VOLUME 80 fl (80-97); MONOCYTES % (AUTO) 8.4 % (3-13); PLATELET COUNT 232 10^3/uL (150-450); RED BLOOD COUNT 4.52 10^6/uL (4.35-5.55); RED CELL DISTRIBUTION WIDTH 15.5 % (11.5-14.0); SEGMENTED NEUTROPHILS % (AUTO) 82.3 % (42-78); TOTAL CELLS COUNTED % (AUTO) 100 %; WHITE BLOOD COUNT 14.3 10^3/uL (4.0-10.5)
[2017-11-11 21:43] LABS: INTERNATIONAL RATION (INR) 1.78; PROTHROMBIN TIME 21.6 SEC (11.4-15.4)
[2017-11-11 21:57] LABS: ALANINE AMINOTRANSFERASE 16 U/L (21-72); ALBUMIN 3.8 g/dL (3.5-5.0); ALKALINE PHOSPHATASE 166 U/L (38-126); ANION GAP 13 (5-19); ASPARTATE AMINO TRANSFERASE 17 U/L (17-59); BILIRUBIN,DIRECT 0.6 mg/dL (0.0-0.4); BILIRUBIN,TOTAL 0.9 mg/dL (0.2-1.3); BLOOD UREA NITROGEN 44 mg/dL (7-20); CALCIUM 9.8 mg/dL (8.4-10.2); CARBON DIOXIDE 26 mmol/L (22-30); CHLORIDE 106 mmol/L (98-107); GLUCOSE 169 mg/dL (75-110); POTASSIUM 4.3 mmol/L (3.6-5.0); SODIUM 144.5 mmol/L (137-145); TOTAL PROTEIN 7.8 g/dL (6.3-8.2)
[2017-11-11 22:08] LABS: APPEARANCE,URINE TURBID; BILIRUBIN,URINE NEGATIVE (NEGATIVE); COLOR,URINE YELLOW; GLUCOSE, URINE NEGATIVE (NEGATIVE); KETONES,URINE NEGATIVE (NEGATIVE); LEUKOCYTE ESTERASE,URINE LARGE (NEGATIVE); NITRITE,URINE NEGATIVE (NEGATIVE); PROTEIN,URINE >=500 mg/dL (NEGATIVE); TRIPLE PHOSPHATE CRYSTAL,URINE MODERATE /HPF; URINE SPECIFIC GRAVITY 1.014; UROBILINOGEN,URINE NEGATIVE mg/dL (<2.0)
[2017-11-11] MEDS ORDERED: CEFEPIME 2 GM/D5W RTU 2 GM/50 ML RTUPB IV ONE (22:47)
--- NOTE | 2017-11-11 22:48 | ER Document Report ---
ED General - General Chief Complaint: Problem with Urinary Catheter Stated Complaint: CATHETER ISSUES Time Seen by Provider: 11/11/17 22:05 Notes: Patient is an 82 year old male with history of advanced dementia, prior bladder cancer with suprapubic catheter dependence who presents with inability to irrigate the suprapubic catheter and no urine being drained from catheter for the past several hours. The patient is complaining of a dull, throbbing, constant pain to his lower abdomen near the site of the catheter insertion which she states has been getting progressively worse since onset. The catheter was apparently last change at the end of August. The patient notes that nothing improves or worsens his symptoms. Denies a history of similar symptoms in the past. Family at the bedside reports that he has had recurrent associated infections with the catheter that have required hospitalizations in the past. He has not had any fever or vomiting. History is otherwise limited secondary to the patient's dementia. TRAVEL OUTSIDE OF THE [place] IN LAST 30 DAYS: No - Related Data Allergies/Adverse Reactions: ciprofloxacin [Ciprofloxacin] Allergy (Severe, Verified 09/05/14 15:35) skin turned red, developed sores Past Medical History - General Information source: Patient, Relative - Social History Smoking Status: Never Smoker Frequency of alcohol use: None Drug Abuse: None Lives with: [facility] Family History: Reviewed & Not Pertinent Patient has suicidal ideation: No Patient has homicidal ideation: No - Past Medical History Cardiac Medical History: Reports: Hx Congestive Heart Failure, Hx Heart Attack - pacemaker, stent, Hx Hypertension Denies: Hx Coronary Artery Disease Pulmonary Medical History: Reports: Hx COPD, Hx Sleep Apnea Denies: Hx Asthma, Hx Bronchitis, Hx Pneumonia Neurological Medical History: Denies: Hx Cerebrovascular Accident, Hx Seizures Endocrine Medical History: Reports: Hx Diabetes Mellitus Type 2 Renal/ Medical History: Denies: Hx Peritoneal Dialysis GI Medical History: Reports: Hx Gastroesophageal Reflux Disease Musculoskeltal Medical History: Reports Hx Arthritis Psychiatric Medical History: Reports: Hx Depression Past Surgical History: Reports: Hx Cardiac Catheterization, Hx Coronary Stent, Hx Orthopedic Surgery, Hx Pacemaker - Immunizations Hx Diphtheria, Pertussis, Tetanus Vaccination: No Review of Systems - Review of Systems Notes: Constitutional: Negative for fever. HENT: Negative for sore throat. Eyes: Negative for visual changes. Cardiovascular: Negative for chest pain. Respiratory: Negative for shortness of breath. Gastrointestinal: Positive for abdominal pain and nausea Genitourinary: Positive for decreased output from the suprapubic catheter Musculoskeletal: Negative for back pain. Skin: Negative for rash. Neurological: Negative for headaches, weakness or numbness. 10 point ROS negative except as marked above and in HPI. Physical Exam - Vital signs Vitals: Resp Pulse Ox 32 H 96 11/11/17 21:31 11/11/17 21:31 Interpretation: Tachycardic Notes: PHYSICAL EXAMINATION: GENERAL: Elderly, somewhat frail but in no acute distress HEAD: Atraumatic, normocephalic. EYES: Pupils equal round and reactive to light, extraocular movements intact, sclera anicteric, conjunctiva are normal. ENT: nares patent, oropharynx clear without exudates. Moderately dry mucous membranes. NECK: Normal range of motion, supple without lymphadenopathy LUNGS: Breath sounds clear to auscultation bilaterally and equal. No wheezes rales or rhonchi. HEART: Regular tachycardia without murmurs ABDOMEN: Soft, mild suprapubic tenderness and fullness to palpation but no other localized areas of tenderness, normoactive bowel sounds. No guarding, no rebound. No masses appreciated. EXTREMITIES:no pitting or edema. No cyanosis. NEUROLOGICAL: No focal neurological deficits. Moves all extremities spontaneously and on command. PSYCH: Alert, oriented only to person SKIN: Warm, Dry, normal turgor, area around the suprapubic catheter insertion site has some mild purulent discharge, mild surrounding erythema but no induration or fluid collection Course - Re-evaluation Re-evalutation: 11/11/17 22:47 Patient presents with an apparent urinary tract infection associated with a suprapubic catheter with some signs of a local infection around the suprapubic catheter site. The suprapubic catheter does not appear to be adequately draining his there is no urine in the bag when I check but a bedside ultrasound shows a distended bladder with the catheter inside the bladder and the balloon inflated. We will try to irrigate the catheter and see if we can clear any potential obstruction which the nursing facility states they did unsuccessfully. The patient is noted to be tachycardic, has a leukocytosis, does meet sepsis criteria. He has had pseudomonal urinary tract infections in the past based on prior culture data and cefepime will therefore be started. If we are unable to get the catheter to begin flowing, I will discuss with urology regarding further management plans as the patient apparently cannot have a urinary catheter placed based on prior surgeries and scar tissue per the family at the bedside. 11/11/17 23:58 I have changed the suprapubic cath as irrigation was unsuccessful. This was done without difficulty or complication. 400cc of urine drained rapidly thereafter and patient had significant improvement in his pain. However, he does meet sepsis criteria and remains persistently tachycardic. He has been started on cefepime as well as IV fluids. I discussed with Dr. Shleton who has accepted the patient for admission given that he has had recurrent pseudomonal urine tract infections and does meet sepsis criteria. - Vital Signs Vital signs: Temp Pulse Resp BP Pulse Ox 24 H 130/88 H 97 11/12/17 01:01 11/12/17 01:00 11/12/17 01:01 - Laboratory Result Diagrams: 11/11/17 21:23 11/11/17 21:23 Laboratory results interpreted by me: 11/11/17 11/11/17 11/11/17 21:23 21:23 21:23 WBC 14.3 H Hgb 11.9 L Hct 36.3 L MCH 26.3 L RDW 15.5 H Seg Neutrophils % 82.3 H Lymphocytes % 7.2 L Absolute Neutrophils 11.7 H PT 21.6 H VBG pH BUN 44 H Creatinine 2.16 H Est GFR ( Amer) 36 L Est GFR (Non-Af Amer) 29 L Glucose 169 H Direct Bilirubin 0.6 H ALT 16 L Alkaline Phosphatase 166 H Urine Protein Urine Blood Ur Leukocyte Esterase 11/11/17 11/11/17 21:41 23:12 WBC Hgb Hct MCH RDW Seg Neutrophils % Lymphocytes % Absolute Neutrophils PT VBG pH 7.43 H BUN Creatinine Est GFR ( Amer) Est GFR (Non-Af Amer) Glucose Direct Bilirubin ALT Alkaline Phosphatase Urine Protein >=500 H Urine Blood SMALL H Ur Leukocyte Esterase LARGE H Discharge - Discharge Clinical Impression: Obstructed suprapubic catheter Qualifiers: Encounter type: initial encounter Qualified Code(s): T83.090A - Other mechanical complication of cystostomy catheter, initial encounter Catheter-associated urinary tract infection Qualifiers: Indwelling urinary catheter type: cystostomy catheter Encounter type: initial encounter Qualified Code(s): T83.510A - Infection and inflammatory reaction due to cystostomy catheter, initial encounter Sepsis Qualifiers: Sepsis type: sepsis due to unspecified organism Qualified Code(s): A41.9 - Sepsis, unspecified organism Condition: Fair Disposition: ADMITTED INPATIENT Admitting Provider: [facility] Admitted: Telemetry
[2017-11-11] MEDS: FENTANYL CITRATE INJ/PF 100 MCG/2 ML AMPUL IV PRN (23:10)
[2017-11-11 23:45] LABS: VENOUS BLOOD BASE EXCESS 1.6 mmol/L; VENOUS BLOOD HCO3 25.9 mmol/L (20-32); VENOUS BLOOD PCO2 39.9 mmHg (35-63); VENOUS BLOOD PH 7.43 (7.30-7.42)
[2017-11-12] MEDS ORDERED: NORMAL SALINE 1000 ML 1,000 ML IV ONE (00:02)
--- NOTE | 2017-11-12 00:20 | EKG REPORT ---
SEVERITY:- ABNORMAL ECG - VENTRICULAR-PACED RHYTHM : Confirmed by: Terri Cottrell MD 12-Nov-2017 00:19:10
[2017-11-12] MEDS: FENTANYL CITRATE INJ/PF 100 MCG/2 ML AMPUL IV PRN (00:35)
[2017-11-12] MEDS ORDERED: DEXTROSE 40% GEL 15 GM TUBE PO PRN ×2 (03:29)
[2017-11-12] MEDS ORDERED: DEXTROSE 50%-WATER 25 GM/50 ML DISP.SYRIN IV PRN ×2 (03:29)
[2017-11-12] MEDS ORDERED: GLUCAGON,HUMAN RECOMB 1 MG INJ IM PRN (03:29)
[2017-11-12] MEDS ORDERED: CEFTRIAXONE 2 GM/D5W RTU 2 GM/50 ML RTUPB IV ONE ×2 (04:00→04:38)
[2017-11-12 04:40] LABS: ARTERIAL BLOOD BASE EXCESS -0.3 mmol/L; ARTERIAL BLOOD H2CO3 1.13 mmol/L (1.05-1.35); ARTERIAL BLOOD HCO3 23.9 mmol/L (20-26); ARTERIAL BLOOD O2 SATURATION 97.5 % (94-98); ARTERIAL BLOOD PCO2 37.5 mmHg (35-45); ARTERIAL BLOOD PH 7.42 (7.35-7.45); ARTERIAL BLOOD PO2 95.8 mmHg (80-100)
[2017-11-12 04:41] LABS: ARTERIAL BLOOD FIO2 2L
[2017-11-12 04:59] LABS: ABSOLUTE BASOPHILS # (AUTO) 0.1 10^3/uL (0.0-0.2); ABSOLUTE EOSINOPHILS # (AUTO) 0.1 10^3/uL (0.0-0.6); ABSOLUTE MONOCYTES (AUTO) 1.3 10^3/uL (0.1-1.4); ABSOLUTE NEUT (AUTO) 12.3 10^3/uL (1.7-8.2); BASOPHILS % (AUTO) 0.9 % (0-2); EOSINOPHILS % (AUTO) 0.6 % (0-6); HEMATOCRIT 33.7 % (37.9-51.0); HEMOGLOBIN 10.7 g/dL (13.5-17.0); LYMPHOCYTES % (AUTO) 6.9 % (13-45); MEAN CORPUSCULAR HEMOGLOBIN 25.7 pg (27.0-33.4); MEAN CORPUSCULAR HGB CONC 31.9 g/dL (32.0-36.0); MEAN CORPUSCULAR VOLUME 81 fl (80-97); MONOCYTES % (AUTO) 8.7 % (3-13); PLATELET COUNT 191 10^3/uL (150-450); RED BLOOD COUNT 4.18 10^6/uL (4.35-5.55); RED CELL DISTRIBUTION WIDTH 15.6 % (11.5-14.0); SEGMENTED NEUTROPHILS % (AUTO) 82.9 % (42-78); TOTAL CELLS COUNTED % (AUTO) 100 %; WHITE BLOOD COUNT 14.8 10^3/uL (4.0-10.5)
[2017-11-12] MEDS: HEPARIN SOD (PORCINE) 5,000 UNIT/ML 1 ML SYRINGE SUBCUT SCH ×3 (05:00→22:20)
[2017-11-12] MEDS: NORMAL SALINE 1000 ML 1,000 ML IV PRN ×2 (05:03→22:18)
[2017-11-12 05:10] LABS: ANION GAP 10 (5-19); BLOOD UREA NITROGEN 45 mg/dL (7-20); CALCIUM 9.4 mg/dL (8.4-10.2); CARBON DIOXIDE 27 mmol/L (22-30); CHLORIDE 109 mmol/L (98-107); GLUCOSE 164 mg/dL (75-110); POTASSIUM 4.4 mmol/L (3.6-5.0)
[2017-11-12] MEDS: INSULIN LISPRO 100 UNIT/ML 3 ML VIAL SUBCUT PRN ×4 (09:18→22:18)
--- NOTE | 2017-11-12 16:17 | PDOC H&P ---
History of Present Illness Admission Date/PCP: 11/12/17 00:12 JOHN OSBORNE MD History of Present Illness: DAREK SIMON is a 82 year old male, he has multiple comorbid conditions including obstructive uropathy, Roman catheter dependence, dementia history of malignant neoplasm of the bladder, he was transferred from the long-term to the emergency room for evaluation of malfunction of the Roman catheter. The long-term staff could not irrigate the suprapubic catheter after multiple attempts ,was referred to the ER for further evaluation. In the emergency room , attempt to irrigate the suprapubic catheter was not successful, there was associated abdominal pain with leukocytosis and tachycardia the catheter was replaced with a new one because of the sepsis syndrome the ED physician felt that patient needed to be admitted to the hospital for management. I saw patient by the bedside, he has no new complaints, there is no fever or chills, he is awake oriented to time place and person, there is associated acute kidney injury Past Medical History Cardiac Medical History: Reports: Congestive Heart Failure, Myocardial Infarction - pacemaker, stent, Hypertension Pulmonary Medical History: Reports: Chronic Obstructive Pulmonary Disease (COPD) , Sleep Apnea Endocrine Medical History: Reports: Diabetes Mellitus Type 2 Malignancy Medical History: Reports: Other - Urinary bladder neoplasm/cancer GI Medical History: Reports: Gastroesophageal Reflux Disease Musculoskeltal Medical History: Reports: Arthritis Psychiatric Medical History: Reports: Depression Hematology: Reports: Anemia Past Surgical History Past Surgical History: Reports: Cardiac Catheterization, Coronary Stent, Orthopedic Surgery, Pacemaker Social History Lives with: [facility] Smoking Status: Former Smoker Frequency of Alcohol Use: None Hx Recreational Drug Use: No Drugs: None Hx Prescription Drug Abuse: No Family History Family History: Reviewed & Not Pertinent Parental Family History Reviewed: Yes Children Family History Reviewed: Yes Sibling(s) Family History Reviewed.: Yes Medication/Allergy Home Medications: Amiodarone HCl [Cordarone 200 mg Tablet] 200 mg PO QAM 10/25/16 Citalopram Hydrobromide [Celexa 20 mg Tablet] 20 mg PO QAM 10/25/16 Docusate Sodium [Colace 100 mg Capsule] 100 mg PO Q12 10/25/16 Furosemide [Lasix] 60 mg PO QAM 10/25/16 Metoprolol Succinate [Toprol Xl 25 mg Tab.sr] 12.5 mg PO QAM 10/25/16 Nitroglycerin [Nitrostat] 0.4 mg SL Q5MP PRN MDD 3 TABLETS 10/25/16 Pantoprazole Sodium [Protonix] 20 mg PO Q6AM 10/25/16 Ammonium Lactate [Lac-Hydrin 12% Lotion 225Gm/Bottle] 1 applic TP Q12HP PRN Apixaban [Eliquis 2.5 mg Tablet] 2.5 mg PO Q12 11/12/17 B Complex W-C No.20/Folic Acid [Nephrocaps Softgel] 1 mg PO QAM 11/12/17 Cranberry Fruit Extract [Cranberry 500 mg Capsule] 500 mg PO QAM 11/12/17 Insulin Aspart [Novolog Insulin 100 Unit/1 ml 10 ml] 0 unit SUBCUT ACHS Insulin Detemir [Levemir Flextouch] 10 unit SQ QAM 11/12/17 Ipratropium/Albuterol Sulfate [Duoneb 3 ml Ampul] 3 ml NEB RTQ4HP PRN 11/12/17 Linagliptin [Tradjenta] 5 mg PO QAM 11/12/17 Nystatin [Mycostatin Topical Powder 15 gm] 1 applic TP BID MDD APPLY TO GROIN Allergies/Adverse Reactions: ciprofloxacin [Ciprofloxacin] Allergy (Severe, Verified 11/12/17 11:04) skin turned red, developed sores Review of Systems Constitutional: PRESENT: fever(s). ABSENT: chills, headache(s), weight gain, weight loss Eyes: ABSENT: visual disturbances Ears: ABSENT: hearing changes Cardiovascular: ABSENT: chest pain, dyspnea on exertion, edema, orthropnea, palpitations Respiratory: ABSENT: cough, hemoptysis Gastrointestinal: ABSENT: abdominal pain, constipation, diarrhea, hematemesis, hematochezia, nausea, vomiting Genitourinary: PRESENT: nocturia Musculoskeletal: ABSENT: joint swelling Integumentary: ABSENT: rash, wounds Neurological: ABSENT: abnormal gait, abnormal speech, confusion, dizziness, focal weakness, syncope Psychiatric: ABSENT: anxiety, depression, homidical ideation, suicidal ideation Endocrine: ABSENT: cold intolerance, heat intolerance, menstrual abnormalities, polydipsia, polyuria Hematologic/Lymphatic: ABSENT: easy bleeding, easy bruising, lymphadenopathy Physical Exam Vital Signs: Temp Pulse Resp BP Pulse Ox 98.4 F 65 18 124/67 100 06/30/18 15:00 11/12/17 15:00 11/12/17 15:00 11/12/17 15:00 11/12/17 15:00 Intake & Output 11/11/17 11/12/17 11/13/17 06:59 06:59 06:59 Intake Total 410 Output Total 400 Balance 10 Weight 75.5 kg General appearance: PRESENT: no acute distress Head exam: PRESENT: atraumatic, normocephalic Eye exam: PRESENT: conjunctiva pink, EOMI, PERRLA Ear exam: PRESENT: normal external ear exam Mouth exam: PRESENT: moist, tongue midline Neck exam: PRESENT: full ROM Respiratory exam: PRESENT: clear to auscultation denita Cardiovascular exam: PRESENT: RRR, +S1, +S2 Pulses: PRESENT: normal dorsalis pedis pul, +2 pedal pulses bilateral Vascular exam: PRESENT: normal capillary refill GI/Abdominal exam: PRESENT: normal bowel sounds, soft, other - Supra pubic catheter Rectal exam: PRESENT: deferred Neurological exam: PRESENT: alert, awake, oriented to person, oriented to place , oriented to time, oriented to situation, CN II-XII grossly intact Psychiatric exam: PRESENT: appropriate affect, normal mood Skin exam: PRESENT: dry, intact, warm Results Laboratory Results: 11/12/17 04:41 11/12/17 04:41 11/12/17 11/12/17 11/12/17 04:25 04:41 04:41 WBC 14.8 H RBC 4.18 L Hgb 10.7 L Hct 33.7 L MCV 81 MCH 25.7 L MCHC 31.9 L RDW 15.6 H Plt Count 191 Seg Neutrophils % 82.9 H Lymphocytes % 6.9 L Monocytes % 8.7 Eosinophils % 0.6 Basophils % 0.9 Absolute Neutrophils 12.3 H Absolute Lymphocytes 1.0 Absolute Monocytes 1.3 Absolute Eosinophils 0.1 Absolute Basophils 0.1 Carbonic Acid 1.13 HCO3/H2CO3 Ratio 21:1 ABG pH 7.42 ABG pCO2 37.5 ABG pO2 95.8 ABG HCO3 23.9 ABG O2 Saturation 97.5 ABG Base Excess -0.3 FiO2 2L Sodium 146.0 H Potassium 4.4 Chloride 109 H Carbon Dioxide 27 Anion Gap 10 BUN 45 H Creatinine 2.01 H Est GFR ( Amer) 39 L Est GFR (Non-Af Amer) 32 L Glucose 164 H Calcium 9.4 Assessment & Plan - Diagnosis (1) Catheter-associated urinary tract infection Qualifiers: Indwelling urinary catheter type: cystostomy catheter Encounter type: initial encounter Qualified Code(s): T83.510A - Infection and inflammatory reaction due to cystostomy catheter, initial encounter; N39.0 - Urinary tract infection, site not specified; N39.0 - Urinary tract infection, site not specified Is this a current diagnosis for this admission?: Yes Plan: Patient with UTI, start antibiotic (2) Obstructed suprapubic catheter Qualifiers: Encounter type: initial encounter Qualified Code(s): T83.090A - Other mechanical complication of cystostomy catheter, initial encounter Is this a current diagnosis for this admission?: Yes (3) Sepsis Qualifiers: Sepsis type: sepsis due to unspecified organism Qualified Code(s): A41.9 - Sepsis, unspecified organism Is this a current diagnosis for this admission?: Yes Plan: Hydration with normal saline (4) Acute kidney injury Is this a current diagnosis for this admission?: Yes
[2017-11-12] MEDS ORDERED: NITROGLYCERIN 0.4 MG/TAB 25 TAB/BOTTLE SL PRN (19:26)
[2017-11-12] MEDS: APIXABAN 2.5 MG TABLET PO SCH (22:18)
[2017-11-12] MEDS: DOCUSATE SODIUM 100 MG CAPSULE PO SCH (22:18)
[2017-11-13] MEDS: HEPARIN SOD (PORCINE) 5,000 UNIT/ML 1 ML SYRINGE SUBCUT SCH ×3 (05:28→21:11)
[2017-11-13 06:09] LABS: ABSOLUTE BASOPHILS # (AUTO) 0.1 10^3/uL (0.0-0.2); ABSOLUTE EOSINOPHILS # (AUTO) 0.4 10^3/uL (0.0-0.6); ABSOLUTE LYMPHOCYTES (AUTO) 1.1 10^3/uL (0.5-4.7); ABSOLUTE MONOCYTES (AUTO) 1.1 10^3/uL (0.1-1.4); BASOPHILS % (AUTO) 0.8 % (0-2); EOSINOPHILS % (AUTO) 3.5 % (0-6); HEMATOCRIT 33.4 % (37.9-51.0); HEMOGLOBIN 10.9 g/dL (13.5-17.0); LYMPHOCYTES % (AUTO) 10.1 % (13-45); MEAN CORPUSCULAR HEMOGLOBIN 26.2 pg (27.0-33.4); MEAN CORPUSCULAR HGB CONC 32.6 g/dL (32.0-36.0); MEAN CORPUSCULAR VOLUME 80 fl (80-97); MONOCYTES % (AUTO) 10.1 % (3-13); PLATELET COUNT 177 10^3/uL (150-450); RED BLOOD COUNT 4.16 10^6/uL (4.35-5.55); RED CELL DISTRIBUTION WIDTH 15.7 % (11.5-14.0); SEGMENTED NEUTROPHILS % (AUTO) 75.5 % (42-78); TOTAL CELLS COUNTED % (AUTO) 100 %; WHITE BLOOD COUNT 10.6 10^3/uL (4.0-10.5)
[2017-11-13 06:16] LABS: ANION GAP 8 (5-19); BLOOD UREA NITROGEN 44 mg/dL (7-20); CALCIUM 9.4 mg/dL (8.4-10.2); CARBON DIOXIDE 29 mmol/L (22-30); CHLORIDE 109 mmol/L (98-107); GLUCOSE 93 mg/dL (75-110); POTASSIUM 3.9 mmol/L (3.6-5.0); SODIUM 145.5 mmol/L (137-145)
[2017-11-13] MEDS: METOPROLOL SUCCINATE 25 MG TAB.SR.24H PO SCH (08:27)
[2017-11-13] MEDS: CITALOPRAM HYDROBROMIDE 20 MG TABLET PO SCH (08:28)
[2017-11-13] MEDS: FOLIC ACID/VITAMIN B COMP W-C CAPSULE PO SCH (08:29)
[2017-11-13] MEDS: AMIODARONE HCL 200 MG TABLET PO SCH (08:29)
[2017-11-13] MEDS: FUROSEMIDE 40 MG TABLET PO SCH (08:29)
[2017-11-13] MEDS: INSULIN GLARGINE,HUM.REC.ANLOG 1,000 UNIT/10 ML UNIT SUBCUT SCH (08:30)
[2017-11-13] MEDS: CEFTRIAXONE 2 GM/D5W RTU 2 GM/50 ML RTUPB IV SCH (09:10)
[2017-11-13] MEDS: LANSOPRAZOLE 15 MG TAB.RAP.DR PO SCH (09:11)
[2017-11-13] MEDS: DOCUSATE SODIUM 100 MG CAPSULE PO SCH ×2 (09:11→21:22)
[2017-11-13] MEDS: APIXABAN 2.5 MG TABLET PO SCH ×2 (09:11→21:22)
[2017-11-13] MEDS: SITAGLIPTIN PHOSPHATE 25 MG TABLET PO SCH (09:57)
[2017-11-13] MEDS: NYSTATIN TOPICAL POWDER 15 GM TP SCH ×2 (09:57→17:21)
--- NOTE | 2017-11-13 15:37 | PDOC PROGRESS REPORT ---
Subjective Progress Note for:: 11/13/17 Subjective:: Patient with polymicrobial UTI, seen by the bedside, no new complaints Reason For Visit: SEPSIS DUE TO UTI Physical Exam Vital Signs: Temp Pulse Resp BP Pulse Ox 98.2 F 66 18 156/68 H 100 11/13/17 11:00 11/13/17 11:00 11/13/17 11:00 11/13/17 11:00 11/13/17 11:00 Intake & Output 11/12/17 11/13/17 11/14/17 06:59 06:59 06:59 Intake Total 410 4277 Output Total 400 575 Balance 10 3702 Weight 75.5 kg General appearance: PRESENT: no acute distress Eye exam: PRESENT: PERRLA Neck exam: PRESENT: full ROM Respiratory exam: PRESENT: clear to auscultation denita Cardiovascular exam: PRESENT: RRR, +S1, +S2 Vascular exam: PRESENT: normal capillary refill GI/Abdominal exam: PRESENT: normal bowel sounds, soft Rectal exam: PRESENT: deferred Neurological exam: PRESENT: alert, awake, oriented to person, oriented to place , oriented to time, oriented to situation, CN II-XII grossly intact Psychiatric exam: PRESENT: appropriate affect, normal mood Skin exam: PRESENT: dry, intact, warm Results Laboratory Results: 11/13/17 05:13 11/13/17 05:13 11/13/17 11/13/17 05:13 05:13 WBC 10.6 H RBC 4.16 L Hgb 10.9 L Hct 33.4 L MCV 80 MCH 26.2 L MCHC 32.6 RDW 15.7 H Plt Count 177 Seg Neutrophils % 75.5 Lymphocytes % 10.1 L Monocytes % 10.1 Eosinophils % 3.5 Basophils % 0.8 Absolute Neutrophils 8.0 Absolute Lymphocytes 1.1 Absolute Monocytes 1.1 Absolute Eosinophils 0.4 Absolute Basophils 0.1 Sodium 145.5 H Potassium 3.9 Chloride 109 H Carbon Dioxide 29 Anion Gap 8 BUN 44 H Creatinine 2.05 H Est GFR ( Amer) 38 L Est GFR (Non-Af Amer) 31 L Glucose 93 Calcium 9.4 Assessment & Plan - Diagnosis (1) Catheter-associated urinary tract infection Qualifiers: Indwelling urinary catheter type: cystostomy catheter Encounter type: initial encounter Qualified Code(s): T83.510A - Infection and inflammatory reaction due to cystostomy catheter, initial encounter; N39.0 - Urinary tract infection, site not specified; N39.0 - Urinary tract infection, site not specified Is this a current diagnosis for this admission?: Yes (2) Obstructed suprapubic catheter Qualifiers: Encounter type: initial encounter Qualified Code(s): T83.090A - Other mechanical complication of cystostomy catheter, initial encounter Is this a current diagnosis for this admission?: Yes (3) Sepsis Qualifiers: Sepsis type: sepsis due to unspecified organism Qualified Code(s): A41.9 - Sepsis, unspecified organism Is this a current diagnosis for this admission?: Yes (4) Acute kidney injury Is this a current diagnosis for this admission?: Yes
[2017-11-13] MEDS: INSULIN LISPRO 100 UNIT/ML 3 ML VIAL SUBCUT PRN ×2 (17:21→21:22)
[2017-11-13] MEDS: IPRATROPIUM/ALBUTEROL 0.5-2.5 MG/3 ML AMPUL NEB PRN (19:54)
[2017-11-14] MEDS: HEPARIN SOD (PORCINE) 5,000 UNIT/ML 1 ML SYRINGE SUBCUT SCH ×3 (05:07→21:45)
[2017-11-14] MEDS: IPRATROPIUM/ALBUTEROL 0.5-2.5 MG/3 ML AMPUL NEB PRN (06:24)
[2017-11-14 07:10] LABS: ABSOLUTE BASOPHILS # (AUTO) 0.1 10^3/uL (0.0-0.2); ABSOLUTE EOSINOPHILS # (AUTO) 0.3 10^3/uL (0.0-0.6); ABSOLUTE LYMPHOCYTES (AUTO) 0.9 10^3/uL (0.5-4.7); ABSOLUTE MONOCYTES (AUTO) 0.9 10^3/uL (0.1-1.4); ABSOLUTE NEUT (AUTO) 6.8 10^3/uL (1.7-8.2); EOSINOPHILS % (AUTO) 3.3 % (0-6); HEMATOCRIT 33.3 % (37.9-51.0); HEMOGLOBIN 10.7 g/dL (13.5-17.0); LYMPHOCYTES % (AUTO) 10.4 % (13-45); MEAN CORPUSCULAR HEMOGLOBIN 26.3 pg (27.0-33.4); MEAN CORPUSCULAR HGB CONC 32.2 g/dL (32.0-36.0); MEAN CORPUSCULAR VOLUME 82 fl (80-97); MONOCYTES % (AUTO) 10.3 % (3-13); PLATELET COUNT 188 10^3/uL (150-450); RED BLOOD COUNT 4.08 10^6/uL (4.35-5.55); RED CELL DISTRIBUTION WIDTH 16.1 % (11.5-14.0); TOTAL CELLS COUNTED % (AUTO) 100 %
[2017-11-14 07:37] LABS: ANION GAP 15 (5-19); BLOOD UREA NITROGEN 39 mg/dL (7-20); CALCIUM 8.8 mg/dL (8.4-10.2); CARBON DIOXIDE 23 mmol/L (22-30); CHLORIDE 108 mmol/L (98-107); GLUCOSE 121 mg/dL (75-110); POTASSIUM 3.6 mmol/L (3.6-5.0); SODIUM 146.1 mmol/L (137-145)
[2017-11-14] MEDS: INSULIN GLARGINE,HUM.REC.ANLOG 1,000 UNIT/10 ML UNIT SUBCUT SCH (08:22)
[2017-11-14] MEDS: FOLIC ACID/VITAMIN B COMP W-C CAPSULE PO SCH (08:23)
[2017-11-14] MEDS: METOPROLOL SUCCINATE 25 MG TAB.SR.24H PO SCH (08:23)
[2017-11-14] MEDS: FUROSEMIDE 40 MG TABLET PO SCH (08:24)
[2017-11-14] MEDS: CITALOPRAM HYDROBROMIDE 20 MG TABLET PO SCH (08:24)
[2017-11-14] MEDS: AMIODARONE HCL 200 MG TABLET PO SCH (08:24)
[2017-11-14] MEDS: SITAGLIPTIN PHOSPHATE 25 MG TABLET PO SCH (10:13)
[2017-11-14] MEDS: DOCUSATE SODIUM 100 MG CAPSULE PO SCH ×2 (10:13→21:49)
[2017-11-14] MEDS: LANSOPRAZOLE 15 MG TAB.RAP.DR PO SCH (10:13)
[2017-11-14] MEDS: CEFTRIAXONE 2 GM/D5W RTU 2 GM/50 ML RTUPB IV SCH (10:13)
[2017-11-14] MEDS: NYSTATIN TOPICAL POWDER 15 GM TP SCH ×2 (10:14→17:17)
[2017-11-14] MEDS: APIXABAN 2.5 MG TABLET PO SCH ×2 (10:14→21:49)
[2017-11-14] MEDS: INSULIN LISPRO 100 UNIT/ML 3 ML VIAL SUBCUT PRN ×2 (12:47→17:18)
--- NOTE | 2017-11-14 20:03 | PDOC PROGRESS REPORT ---
Subjective Progress Note for:: 11/14/17 Subjective:: Patient is seen by the bedside was admitted for UTI/sepsis Reason For Visit: SEPSIS DUE TO UTI Physical Exam Vital Signs: Temp Pulse Resp BP Pulse Ox 97.4 F 106 H 20 144/87 H 96 11/14/17 15:16 11/14/17 15:16 11/14/17 15:16 11/14/17 15:16 11/14/17 15:16 Intake & Output 11/13/17 11/14/17 11/15/17 06:59 06:59 06:59 Intake Total 4277 4100 1687 Output Total 575 1500 2000 Balance 3702 2600 -313 Weight 75.5 kg General appearance: PRESENT: no acute distress Eye exam: PRESENT: PERRLA Respiratory exam: PRESENT: rhonchi Cardiovascular exam: PRESENT: +S1, +S2 GI/Abdominal exam: PRESENT: soft Results Laboratory Results: 11/14/17 05:55 11/14/17 05:53 11/14/17 11/14/17 05:53 05:55 WBC 9.0 RBC 4.08 L Hgb 10.7 L Hct 33.3 L MCV 82 MCH 26.3 L MCHC 32.2 RDW 16.1 H Plt Count 188 Seg Neutrophils % 75.0 Lymphocytes % 10.4 L Monocytes % 10.3 Eosinophils % 3.3 Basophils % 1.0 Absolute Neutrophils 6.8 Absolute Lymphocytes 0.9 Absolute Monocytes 0.9 Absolute Eosinophils 0.3 Absolute Basophils 0.1 Sodium 146.1 H Potassium 3.6 Chloride 108 H Carbon Dioxide 23 Anion Gap 15 BUN 39 H Creatinine 1.78 H Est GFR ( Amer) 44 L Est GFR (Non-Af Amer) 37 L Glucose 121 H Calcium 8.8 Assessment & Plan - Diagnosis (1) Catheter-associated urinary tract infection Qualifiers: Indwelling urinary catheter type: cystostomy catheter Encounter type: initial encounter Qualified Code(s): T83.510A - Infection and inflammatory reaction due to cystostomy catheter, initial encounter; N39.0 - Urinary tract infection, site not specified; N39.0 - Urinary tract infection, site not specified Is this a current diagnosis for this admission?: Yes (2) Obstructed suprapubic catheter Qualifiers: Encounter type: initial encounter Qualified Code(s): T83.090A - Other mechanical complication of cystostomy catheter, initial encounter Is this a current diagnosis for this admission?: Yes (3) Sepsis Qualifiers: Sepsis type: sepsis due to unspecified organism Qualified Code(s): A41.9 - Sepsis, unspecified organism Is this a current diagnosis for this admission?: Yes (4) Acute kidney injury Is this a current diagnosis for this admission?: Yes
[2017-11-15] MEDS: HEPARIN SOD (PORCINE) 5,000 UNIT/ML 1 ML SYRINGE SUBCUT SCH ×2 (04:35→17:48)
[2017-11-15 04:49] LABS: ABSOLUTE BASOPHILS # (AUTO) 0.1 10^3/uL (0.0-0.2); ABSOLUTE EOSINOPHILS # (AUTO) 0.2 10^3/uL (0.0-0.6); ABSOLUTE LYMPHOCYTES (AUTO) 0.9 10^3/uL (0.5-4.7); ABSOLUTE MONOCYTES (AUTO) 0.7 10^3/uL (0.1-1.4); ABSOLUTE NEUT (AUTO) 6.7 10^3/uL (1.7-8.2); BASOPHILS % (AUTO) 0.8 % (0-2); EOSINOPHILS % (AUTO) 2.4 % (0-6); HEMATOCRIT 32.9 % (37.9-51.0); HEMOGLOBIN 10.8 g/dL (13.5-17.0); LYMPHOCYTES % (AUTO) 10.1 % (13-45); MEAN CORPUSCULAR HEMOGLOBIN 26.3 pg (27.0-33.4); MEAN CORPUSCULAR HGB CONC 32.7 g/dL (32.0-36.0); MEAN CORPUSCULAR VOLUME 80 fl (80-97); MONOCYTES % (AUTO) 8.4 % (3-13); PLATELET COUNT 181 10^3/uL (150-450); RED CELL DISTRIBUTION WIDTH 15.8 % (11.5-14.0); SEGMENTED NEUTROPHILS % (AUTO) 78.3 % (42-78); TOTAL CELLS COUNTED % (AUTO) 100 %; WHITE BLOOD COUNT 8.5 10^3/uL (4.0-10.5)
[2017-11-15 04:55] LABS: ANION GAP 13 (5-19); BLOOD UREA NITROGEN 36 mg/dL (7-20); CALCIUM 9.3 mg/dL (8.4-10.2); CARBON DIOXIDE 22 mmol/L (22-30); CHLORIDE 113 mmol/L (98-107); GLUCOSE 99 mg/dL (75-110); POTASSIUM 3.6 mmol/L (3.6-5.0)
[2017-11-15] MEDS: IPRATROPIUM/ALBUTEROL 0.5-2.5 MG/3 ML AMPUL NEB PRN (09:02)
[2017-11-15] MEDS: FOLIC ACID/VITAMIN B COMP W-C CAPSULE PO SCH (09:59)
[2017-11-15] MEDS: CITALOPRAM HYDROBROMIDE 20 MG TABLET PO SCH (10:00)
[2017-11-15] MEDS: AMIODARONE HCL 200 MG TABLET PO SCH (10:01)
[2017-11-15] MEDS: FUROSEMIDE 40 MG TABLET PO SCH (10:01)
[2017-11-15] MEDS: APIXABAN 2.5 MG TABLET PO SCH ×2 (10:01→21:41)
[2017-11-15] MEDS: METOPROLOL SUCCINATE 25 MG TAB.SR.24H PO SCH (10:01)
[2017-11-15] MEDS: LANSOPRAZOLE 15 MG TAB.RAP.DR PO SCH (10:02)
[2017-11-15] MEDS: SITAGLIPTIN PHOSPHATE 25 MG TABLET PO SCH (10:02)
[2017-11-15] MEDS: INSULIN GLARGINE,HUM.REC.ANLOG 1,000 UNIT/10 ML UNIT SUBCUT SCH (10:02)
[2017-11-15] MEDS: CEFTRIAXONE 2 GM/D5W RTU 2 GM/50 ML RTUPB IV SCH (10:02)
[2017-11-15] MEDS: DOCUSATE SODIUM 100 MG CAPSULE PO SCH ×2 (10:02→21:42)
[2017-11-15] MEDS: NYSTATIN TOPICAL POWDER 15 GM TP SCH ×2 (10:03→18:58)
--- NOTE | 2017-11-15 19:28 | PDOC PROGRESS REPORT ---
Subjective Progress Note for:: 11/15/17 Subjective:: Patient is seen by the bedside IV fluid was discontinued probably volume overloaded Reason For Visit: SEPSIS DUE TO UTI Physical Exam Vital Signs: Temp Pulse Resp BP Pulse Ox 98.3 F 112 H 22 H 150/89 H 92 11/15/17 15:36 11/15/17 15:36 11/15/17 15:36 11/15/17 15:36 11/15/17 15:36 Intake & Output 11/14/17 11/15/17 11/16/17 06:59 06:59 06:59 Intake Total 4100 3447 118 Output Total 1500 2600 1400 Balance 2600 847 -1282 Weight 75.5 kg 81.1 kg General appearance: PRESENT: no acute distress Eye exam: PRESENT: PERRLA Respiratory exam: PRESENT: rales Cardiovascular exam: PRESENT: +S1, +S2 GI/Abdominal exam: PRESENT: soft Neurological exam: PRESENT: alert Results Laboratory Results: 11/15/17 03:48 11/15/17 03:48 11/15/17 11/15/17 03:48 03:48 WBC 8.5 RBC 4.10 L Hgb 10.8 L Hct 32.9 L MCV 80 MCH 26.3 L MCHC 32.7 RDW 15.8 H Plt Count 181 Seg Neutrophils % 78.3 H Lymphocytes % 10.1 L Monocytes % 8.4 Eosinophils % 2.4 Basophils % 0.8 Absolute Neutrophils 6.7 Absolute Lymphocytes 0.9 Absolute Monocytes 0.7 Absolute Eosinophils 0.2 Absolute Basophils 0.1 Sodium 148.0 H Potassium 3.6 Chloride 113 H Carbon Dioxide 22 Anion Gap 13 BUN 36 H Creatinine 1.77 H Est GFR ( Amer) 45 L Est GFR (Non-Af Amer) 37 L Glucose 99 Calcium 9.3 Assessment & Plan - Diagnosis (1) Catheter-associated urinary tract infection Qualifiers: Indwelling urinary catheter type: cystostomy catheter Encounter type: initial encounter Qualified Code(s): T83.510A - Infection and inflammatory reaction due to cystostomy catheter, initial encounter; N39.0 - Urinary tract infection, site not specified; N39.0 - Urinary tract infection, site not specified Is this a current diagnosis for this admission?: Yes (2) Obstructed suprapubic catheter Qualifiers: Encounter type: initial encounter Qualified Code(s): T83.090A - Other mechanical complication of cystostomy catheter, initial encounter Is this a current diagnosis for this admission?: Yes (3) Sepsis Qualifiers: Sepsis type: sepsis due to unspecified organism Qualified Code(s): A41.9 - Sepsis, unspecified organism Is this a current diagnosis for this admission?: Yes (4) Acute kidney injury Is this a current diagnosis for this admission?: Yes
[2017-11-16] MEDS: INSULIN GLARGINE,HUM.REC.ANLOG 1,000 UNIT/10 ML UNIT SUBCUT SCH (07:46)
[2017-11-16] MEDS: DOCUSATE SODIUM 100 MG CAPSULE PO SCH (09:08)
[2017-11-16] MEDS: FUROSEMIDE 40 MG TABLET PO SCH (09:08)
[2017-11-16] MEDS: APIXABAN 2.5 MG TABLET PO SCH (09:08)
[2017-11-16] MEDS: FOLIC ACID/VITAMIN B COMP W-C CAPSULE PO SCH (09:08)
[2017-11-16] MEDS: SITAGLIPTIN PHOSPHATE 25 MG TABLET PO SCH (09:09)
[2017-11-16] MEDS: LANSOPRAZOLE 15 MG TAB.RAP.DR PO SCH (09:09)
[2017-11-16] MEDS: AMIODARONE HCL 200 MG TABLET PO SCH (09:09)
[2017-11-16] MEDS: CITALOPRAM HYDROBROMIDE 20 MG TABLET PO SCH (09:09)
[2017-11-16] MEDS: METOPROLOL SUCCINATE 25 MG TAB.SR.24H PO SCH (09:09)
[2017-11-16] MEDS: NYSTATIN TOPICAL POWDER 15 GM TP SCH ×2 (09:16→16:49)
[2017-11-16] MEDS: CEFTRIAXONE 2 GM/D5W RTU 2 GM/50 ML RTUPB IV SCH (09:17)
--- NOTE | 2017-11-16 12:54 | RADIOLOGY REPORT (SQ) ---
EXAM DESCRIPTION: CHEST SINGLE VIEW COMPLETED DATE/TIME: 11/16/2017 12:41 pm REASON FOR STUDY: pneumonia COMPARISON: Chest films 10/30/2016 CT chest 10/28/2016 EXAM PARAMETERS: NUMBER OF VIEWS: One view. TECHNIQUE: Single frontal radiographic view of the chest acquired. RADIATION DOSE: NA LIMITATIONS: None. FINDINGS: LUNGS AND PLEURA: Moderate right pleural effusion. Right middle and lower lobe airspace d isease likely atelectasis. Pneumonia could not be excluded. Trace left pleural effusion with mild left basilar atelectasis. No pneumothorax. MEDIASTINUM AND HILAR STRUCTURES: No masses. Contour normal. HEART AND VASCULAR STRUCTURES: Stable cardiomegaly BONES: No acute findings. HARDWARE: Left-sided dual lead pacemaker OTHER: No other significant finding. IMPRESSION: Bilateral pleural effusions with bibasilar airspace disease right greater than left. Moderate cardiomegaly, left-sided dual lead pacemaker TECHNICAL DOCUMENTATION: JOB ID: [id number] [employer]- All Rights Reserved Reading location - IP/workstation name: [email or web address]
[2017-11-16 13:09] LABS: ABSOLUTE BASOPHILS # (AUTO) 0.1 10^3/uL (0.0-0.2); ABSOLUTE EOSINOPHILS # (AUTO) 0.1 10^3/uL (0.0-0.6); ABSOLUTE LYMPHOCYTES (AUTO) 0.8 10^3/uL (0.5-4.7); ABSOLUTE MONOCYTES (AUTO) 0.7 10^3/uL (0.1-1.4); ABSOLUTE NEUT (AUTO) 7.1 10^3/uL (1.7-8.2); BASOPHILS % (AUTO) 0.8 % (0-2); EOSINOPHILS % (AUTO) 1.2 % (0-6); HEMATOCRIT 36.2 % (37.9-51.0); HEMOGLOBIN 11.8 g/dL (13.5-17.0); LYMPHOCYTES % (AUTO) 9.2 % (13-45); MEAN CORPUSCULAR HEMOGLOBIN 26.5 pg (27.0-33.4); MEAN CORPUSCULAR HGB CONC 32.6 g/dL (32.0-36.0); MEAN CORPUSCULAR VOLUME 81 fl (80-97); PLATELET COUNT 201 10^3/uL (150-450); RED BLOOD COUNT 4.44 10^6/uL (4.35-5.55); RED CELL DISTRIBUTION WIDTH 15.8 % (11.5-14.0); SEGMENTED NEUTROPHILS % (AUTO) 80.8 % (42-78); TOTAL CELLS COUNTED % (AUTO) 100 %; WHITE BLOOD COUNT 8.7 10^3/uL (4.0-10.5)
[2017-11-16 13:14] LABS: ARTERIAL BLOOD BASE EXCESS -3.3 mmol/L; ARTERIAL BLOOD H2CO3 1.58 mmol/L (1.05-1.35); ARTERIAL BLOOD HCO3 23.9 mmol/L (20-26); ARTERIAL BLOOD O2 SATURATION 81.9 % (94-98); ARTERIAL BLOOD PCO2 52.6 mmHg (35-45); ARTERIAL BLOOD PH 7.28 (7.35-7.45); ARTERIAL BLOOD PO2 52.1 mmHg (80-100); ARTERIAL BLOOD TOTAL CO2 25.6 mmol/L (23-27)
[2017-11-16] MEDS ORDERED: FUROSEMIDE INJ/PF 40 MG/4 ML SDV IV SCH (13:15)
[2017-11-16 13:17] LABS: ARTERIAL BLOOD FIO2 2.5L
--- NOTE | 2017-11-16 13:19 | PDOC PROGRESS REPORT ---
Subjective Progress Note for:: 11/16/17 Subjective:: Patient is seen by the bedside, it sounds very congested a stat chest x-ray was done showed pleural effusion, bilaterally more so on the right side than the left side Reason For Visit: SEPSIS DUE TO UTI Physical Exam Vital Signs: Temp Pulse Resp BP Pulse Ox 97.6 F 69 19 148/108 H 100 11/16/17 11:36 11/16/17 12:18 11/16/17 12:18 11/16/17 11:36 11/16/17 12:18 Intake & Output 11/15/17 11/16/17 11/17/17 06:59 06:59 06:59 Intake Total 3447 248 Output Total 2600 2000 Balance 847 -1752 Weight 81.1 kg 81.8 kg General appearance: PRESENT: mild distress Eye exam: PRESENT: PERRLA Respiratory exam: PRESENT: crackles Cardiovascular exam: PRESENT: +S1, +S2 GI/Abdominal exam: PRESENT: soft Extremities exam: PRESENT: pedal edema Neurological exam: PRESENT: alert Results Laboratory Results: 11/16/17 12:46 11/16/17 12:46 WBC 8.7 RBC 4.44 Hgb 11.8 L Hct 36.2 L MCV 81 MCH 26.5 L MCHC 32.6 RDW 15.8 H Plt Count 201 Seg Neutrophils % 80.8 H Lymphocytes % 9.2 L Monocytes % 8.0 Eosinophils % 1.2 Basophils % 0.8 Absolute Neutrophils 7.1 Absolute Lymphocytes 0.8 Absolute Monocytes 0.7 Absolute Eosinophils 0.1 Absolute Basophils 0.1 Impressions: Chest X-Ray 11/16/17 00:00 IMPRESSION: Bilateral pleural effusions with bibasilar airspace disease right greater than left. Moderate cardiomegaly, left-sided dual lead pacemaker Assessment & Plan - Diagnosis (1) Catheter-associated urinary tract infection Qualifiers: Indwelling urinary catheter type: cystostomy catheter Encounter type: initial encounter Qualified Code(s): T83.510A - Infection and inflammatory reaction due to cystostomy catheter, initial encounter; N39.0 - Urinary tract infection, site not specified; N39.0 - Urinary tract infection, site not specified Is this a current diagnosis for this admission?: Yes (2) Obstructed suprapubic catheter Qualifiers: Encounter type: initial encounter Qualified Code(s): T83.090A - Other mechanical complication of cystostomy catheter, initial encounter Is this a current diagnosis for this admission?: Yes (3) Sepsis Qualifiers: Sepsis type: sepsis due to unspecified organism Qualified Code(s): A41.9 - Sepsis, unspecified organism Is this a current diagnosis for this admission?: Yes (4) Acute kidney injury Is this a current diagnosis for this admission?: Yes (5) Bilateral pleural effusion Is this a current diagnosis for this admission?: Yes Plan: Give Lasix 40 mg IV, ordered thoracentesis
[2017-11-16 13:23] LABS: ALANINE AMINOTRANSFERASE 21 U/L (21-72); ALBUMIN 3.5 g/dL (3.5-5.0); ALKALINE PHOSPHATASE 134 U/L (38-126); ANION GAP 14 (5-19); ASPARTATE AMINO TRANSFERASE 14 U/L (17-59); BILIRUBIN,DIRECT 0.6 mg/dL (0.0-0.4); BILIRUBIN,TOTAL 0.6 mg/dL (0.2-1.3); BLOOD UREA NITROGEN 36 mg/dL (7-20); CALCIUM 9.9 mg/dL (8.4-10.2); CARBON DIOXIDE 24 mmol/L (22-30); CHLORIDE 110 mmol/L (98-107); GLUCOSE 165 mg/dL (75-110); POTASSIUM 3.7 mmol/L (3.6-5.0); TOTAL PROTEIN 7.2 g/dL (6.3-8.2)
[2017-11-16 13:32] LABS: TOTAL PROTEIN 7.3 g/dL (6.3-8.2)
[2017-11-16 13:51] LABS: INTERNATIONAL RATION (INR) 2.02; PROTHROMBIN TIME 23.8 SEC (11.4-15.4)
[2017-11-16 13:52] LABS: PARTIAL THROMBOPLASTIN TIME 41.2 SEC (23.5-35.8)
[2017-11-16] MEDS ORDERED: FUROSEMIDE INJ/PF 40 MG/4 ML SDV IV ONE (14:15)
[2017-11-16 16:21] LABS: ARTERIAL BLOOD BASE EXCESS -1.7 mmol/L; ARTERIAL BLOOD H2CO3 1.56 mmol/L (1.05-1.35); ARTERIAL BLOOD HCO3 25.1 mmol/L (20-26); ARTERIAL BLOOD O2 SATURATION 74.5 % (94-98); ARTERIAL BLOOD PCO2 51.8 mmHg (35-45); ARTERIAL BLOOD PO2 43.8 mmHg (80-100); ARTERIAL BLOOD TOTAL CO2 26.7 mmol/L (23-27)
[2017-11-16 16:25] LABS: ARTERIAL BLOOD FIO2 2L
[2017-11-16] MEDS: IPRATROPIUM/ALBUTEROL 0.5-2.5 MG/3 ML AMPUL NEB PRN (21:10)
[2017-11-17] MEDS: DOCUSATE SODIUM 100 MG CAPSULE PO SCH ×3 (00:12→21:37)
[2017-11-17] MEDS: IPRATROPIUM/ALBUTEROL 0.5-2.5 MG/3 ML AMPUL NEB PRN (08:03)
[2017-11-17 11:47] LABS: ARTERIAL BLOOD BASE EXCESS -0.3 mmol/L; ARTERIAL BLOOD FIO2 35%; ARTERIAL BLOOD H2CO3 1.11 mmol/L (1.05-1.35); ARTERIAL BLOOD HCO3 23.8 mmol/L (20-26); ARTERIAL BLOOD O2 SATURATION 98.1 % (94-98); ARTERIAL BLOOD PH 7.43 (7.35-7.45); ARTERIAL BLOOD PO2 108.1 mmHg (80-100); ARTERIAL BLOOD TOTAL CO2 24.9 mmol/L (23-27)
[2017-11-17 12:08] LABS: ABSOLUTE BASOPHILS # (AUTO) 0.1 10^3/uL (0.0-0.2); ABSOLUTE EOSINOPHILS # (AUTO) 0.2 10^3/uL (0.0-0.6); ABSOLUTE LYMPHOCYTES (AUTO) 0.9 10^3/uL (0.5-4.7); ABSOLUTE MONOCYTES (AUTO) 0.7 10^3/uL (0.1-1.4); ABSOLUTE NEUT (AUTO) 6.5 10^3/uL (1.7-8.2); BASOPHILS % (AUTO) 0.9 % (0-2); EOSINOPHILS % (AUTO) 2.4 % (0-6); HEMATOCRIT 35.9 % (37.9-51.0); HEMOGLOBIN 11.7 g/dL (13.5-17.0); LYMPHOCYTES % (AUTO) 10.3 % (13-45); MEAN CORPUSCULAR HEMOGLOBIN 26.2 pg (27.0-33.4); MEAN CORPUSCULAR HGB CONC 32.5 g/dL (32.0-36.0); MEAN CORPUSCULAR VOLUME 81 fl (80-97); MONOCYTES % (AUTO) 8.8 % (3-13); PLATELET COUNT 184 10^3/uL (150-450); RED BLOOD COUNT 4.45 10^6/uL (4.35-5.55); RED CELL DISTRIBUTION WIDTH 16.1 % (11.5-14.0); SEGMENTED NEUTROPHILS % (AUTO) 77.6 % (42-78); TOTAL CELLS COUNTED % (AUTO) 100 %; WHITE BLOOD COUNT 8.4 10^3/uL (4.0-10.5)
[2017-11-17 12:13] LABS: INTERNATIONAL RATION (INR) 1.63; PROTHROMBIN TIME 20.1 SEC (11.4-15.4)
[2017-11-17 12:14] LABS: PARTIAL THROMBOPLASTIN TIME 36.2 SEC (23.5-35.8)
[2017-11-17] MEDS ORDERED: FUROSEMIDE INJ/PF 40 MG/4 ML SDV ONE (12:23)
[2017-11-17] MEDS ORDERED: VERAPAMIL HCL INJ/PF 5 MG/2 ML SDV IV ONE (12:23)
[2017-11-17 12:35] LABS: ALANINE AMINOTRANSFERASE 19 U/L (21-72); ALBUMIN 3.3 g/dL (3.5-5.0); ALKALINE PHOSPHATASE 119 U/L (38-126); ANION GAP 14 (5-19); ASPARTATE AMINO TRANSFERASE 12 U/L (17-59); BILIRUBIN,DIRECT 0.6 mg/dL (0.0-0.4); BILIRUBIN,TOTAL 0.6 mg/dL (0.2-1.3); BLOOD UREA NITROGEN 37 mg/dL (7-20); CALCIUM 9.3 mg/dL (8.4-10.2); CARBON DIOXIDE 26 mmol/L (22-30); CHLORIDE 110 mmol/L (98-107); PHOSPHORUS 3.7 mg/dL (2.5-4.5); POTASSIUM 3.5 mmol/L (3.6-5.0); SODIUM 149.9 mmol/L (137-145); TOTAL PROTEIN 6.3 g/dL (6.3-8.2)
[2017-11-17 12:36] LABS: GLUCOSE 119 mg/dL (75-110)
[2017-11-17 14:13] LABS: ARTERIAL BLOOD BASE EXCESS -1.3 mmol/L; ARTERIAL BLOOD FIO2 35%; ARTERIAL BLOOD H2CO3 1.26 mmol/L (1.05-1.35); ARTERIAL BLOOD HCO3 23.9 mmol/L (20-26); ARTERIAL BLOOD O2 SATURATION 97.7 % (94-98); ARTERIAL BLOOD PH 7.37 (7.35-7.45); ARTERIAL BLOOD PO2 104.5 mmHg (80-100); ARTERIAL BLOOD TOTAL CO2 25.2 mmol/L (23-27)
--- NOTE | 2017-11-17 14:23 | PDOC CONSULTATION ---
Consultation Consult Date: 11/17/17 Attending physician:: JOHN OSBORNE History of Present Illness Admission Date/PCP: 11/12/17 00:12 JOHN OSBORNE MD History of Present Illness: DAREK SIMON is a 82 year old male,admitted for hypercapnic resp failure and sepsis from UTI,has add hx of dementia,chronic renal failure,afib,HTN and bladder cancer.He presents now to ICU obtunded. Past Medical History Cardiac Medical History: Reports: Congestive Heart Failure, Myocardial Infarction - pacemaker, stent, Hypertension Denies: Coronary Artery Disease Pulmonary Medical History: Reports: Chronic Obstructive Pulmonary Disease (COPD) , Sleep Apnea Denies: Asthma, Bronchitis, Pneumonia Neurological Medical History: Denies: Multiple Sclerosis, Seizures Endocrine Medical History: Reports: Diabetes Mellitus Type 2 Malignancy Medical History: Reports: Other - Urinary bladder neoplasm/cancer GI Medical History: Reports: Gastroesophageal Reflux Disease Musculoskeltal Medical History: Reports: Arthritis Psychiatric Medical History: Reports: Depression Hematology: Reports: Anemia Denies: Sickle Cell Disease Past Surgical History Past Surgical History: Reports: Cardiac Catheterization, Coronary Stent, Orthopedic Surgery, Pacemaker Social History Lives with: Retirement Smoking Status: Current Some Day Smoker Frequency of Alcohol Use: None Hx Recreational Drug Use: No Drugs: None Hx Prescription Drug Abuse: No - Advance Directive Resuscitation Status: Full Code Family History Parental Family History Reviewed: No Children Family History Reviewed: No Sibling(s) Family History Reviewed.: No Medication/Allergy Home Medications: Amiodarone HCl [Cordarone 200 mg Tablet] 200 mg PO QAM 10/25/16 Citalopram Hydrobromide [Celexa 20 mg Tablet] 20 mg PO QAM 10/25/16 Docusate Sodium [Colace 100 mg Capsule] 100 mg PO Q12 10/25/16 Furosemide [Lasix] 60 mg PO QAM 10/25/16 Metoprolol Succinate [Toprol Xl 25 mg Tab.sr] 12.5 mg PO QAM 10/25/16 Nitroglycerin [Nitrostat] 0.4 mg SL Q5MP PRN MDD 3 TABLETS 10/25/16 Pantoprazole Sodium [Protonix] 20 mg PO Q6AM 10/25/16 Ammonium Lactate [Lac-Hydrin 12% Lotion 225Gm/Bottle] 1 applic TP Q12HP PRN Apixaban [Eliquis 2.5 mg Tablet] 2.5 mg PO Q12 11/12/17 B Complex W-C No.20/Folic Acid [Nephrocaps Softgel] 1 mg PO QAM 11/12/17 Cranberry Fruit Extract [Cranberry 500 mg Capsule] 500 mg PO QAM 11/12/17 Insulin Aspart [Novolog Insulin 100 Unit/1 ml 10 ml] 0 unit SUBCUT ACHS Insulin Detemir [Levemir Flextouch] 10 unit SQ QAM 11/12/17 Ipratropium/Albuterol Sulfate [Duoneb 3 ml Ampul] 3 ml NEB RTQ4HP PRN 11/12/17 Linagliptin [Tradjenta] 5 mg PO QAM 11/12/17 Nystatin [Mycostatin Topical Powder 15 gm] 1 applic TP BID MDD APPLY TO GROIN Allergies/Adverse Reactions: ciprofloxacin [Ciprofloxacin] Allergy (Severe, Verified 11/12/17 11:04) skin turned red, developed sores Review of Systems ROS unobtainable: Due to mental status Physical Exam Vital Signs: Temp Pulse Resp BP Pulse Ox 97.9 F 125 H 20 151/104 H 100 11/17/17 11:41 11/17/17 11:41 11/17/17 13:15 11/17/17 11:41 11/17/17 13:15 Intake & Output 11/16/17 11/17/17 11/18/17 06:59 06:59 06:59 Intake Total 248 205 Output Total 1999 2300 971 [facility] -[phone] -046 Weight 81.8 kg 79.605 kg General appearance: PRESENT: no acute distress. ABSENT: cooperative, disheveled Head exam: PRESENT: atraumatic, normocephalic Eye exam: PRESENT: conjunctiva pale, EOMI Mouth exam: PRESENT: dry mucosa, neck supple, tongue midline Neck exam: ABSENT: carotid bruit, JVD, lymphadenopathy, thyromegaly, tracheal deviation, tracheostomy Respiratory exam: PRESENT: decreased breath sounds, prolonged expiratory phas, rhonchi, unlabored. ABSENT: stridor Cardiovascular exam: PRESENT: RRR, +S1, +S2 Pulses: PRESENT: normal carotid pulses GI/Abdominal exam: PRESENT: hypoactive bowel sounds, soft Extremities exam: ABSENT: calf tenderness, clubbing, joint swelling Musculoskeletal exam: ABSENT: ambulatory, deformity, dislocation Neurological exam: ABSENT: awake, oriented to person Skin exam: PRESENT: dry, warm Results Laboratory Results: 11/17/17 12:00 11/17/17 12:00 11/16/17 11/17/17 11/17/17 16:10 11:00 12:00 WBC 8.4 RBC 4.45 Hgb 11.7 L Hct 35.9 L MCV 81 MCH 26.2 L MCHC 32.5 RDW 16.1 H Plt Count 184 Seg Neutrophils % 77.6 Lymphocytes % 10.3 L Monocytes % 8.8 Eosinophils % 2.4 Basophils % 0.9 Absolute Neutrophils 6.5 Absolute Lymphocytes 0.9 Absolute Monocytes 0.7 Absolute Eosinophils 0.2 Absolute Basophils 0.1 Carbonic Acid 1.56 H 1.11 HCO3/H2CO3 Ratio 16:1 21:1 ABG pH 7.30 L 7.43 ABG pCO2 51.8 H 37.0 ABG pO2 43.8 L 108.1 H ABG HCO3 25.1 23.8 ABG O2 Saturation 74.5 L 98.1 H ABG Base Excess -1.7 -0.3 FiO2 2L 35% Sodium Potassium Chloride Carbon Dioxide Anion Gap BUN Creatinine Est GFR ( Amer) Est GFR (Non-Af Amer) Glucose Calcium Phosphorus Magnesium Total Bilirubin AST ALT Alkaline Phosphatase Total Protein Albumin 11/17/17 12:00 WBC RBC Hgb Hct MCV MCH MCHC RDW Plt Count Seg Neutrophils % Lymphocytes % Monocytes % Eosinophils % Basophils % Absolute Neutrophils Absolute Lymphocytes Absolute Monocytes Absolute Eosinophils Absolute Basophils Carbonic Acid HCO3/H2CO3 Ratio ABG pH ABG pCO2 ABG pO2 ABG HCO3 ABG O2 Saturation ABG Base Excess FiO2 Sodium 149.9 H Potassium 3.5 L Chloride 110 H Carbon Dioxide 26 Anion Gap 14 BUN 37 H Creatinine 1.74 H Est GFR ( Amer) 46 L Est GFR (Non-Af Amer) 38 L Glucose 119 H Calcium 9.3 Phosphorus 3.7 Magnesium 1.5 L Total Bilirubin 0.6 AST 12 L ALT 19 L Alkaline Phosphatase 119 Total Protein 6.3 Albumin 3.3 L 11/16/17 12:46 NT-Pro-B Natriuret Pep 02986 H Impressions: Chest X-Ray 11/16/17 00:00 IMPRESSION: Bilateral pleural effusions with bibasilar airspace disease right greater than left. Moderate cardiomegaly, left-sided dual lead pacemaker Assessment & Plan - Diagnosis (1) Atrial fibrillation Qualifiers: Atrial fibrillation type: chronic Qualified Code(s): I48.2 - Chronic atrial fibrillation Is this a current diagnosis for this admission?: Yes Plan: RVR (2) Hypertension Qualifiers: Hypertension type: essential hypertension Qualified Code(s): I10 - Essential (primary) hypertension Is this a current diagnosis for this admission?: Yes Plan: stable (3) Altered mental status Qualifiers: Altered mental status type: delirium Qualified Code(s): R41.0 - Disorientation, unspecified Is this a current diagnosis for this admission?: Yes (4) Obstructed suprapubic catheter Qualifiers: Encounter type: initial encounter Qualified Code(s): T83.090A - Other mechanical complication of cystostomy catheter, initial encounter Is this a current diagnosis for this admission?: Yes Plan: 11/11/17 21:41 Urine Culture - Final Suprapubic Catheter Proteus Mirabilis Staphylococcus Aureus Enterococcus Faecalis(Group D) (5) Bilateral pleural effusion Is this a current diagnosis for this admission?: Yes Plan: correct INR thoracentesis - Time Total Critical Time (Minutes): 55
[2017-11-17] MEDS: CEFTRIAXONE 2 GM/D5W RTU 2 GM/50 ML RTUPB IV SCH (16:49)
[2017-11-17] MEDS: METOPROLOL SUCCINATE 25 MG TAB.SR.24H PO SCH (16:50)
[2017-11-17] MEDS: AMIODARONE HCL 200 MG TABLET PO SCH (16:51)
[2017-11-17] MEDS: CITALOPRAM HYDROBROMIDE 20 MG TABLET PO SCH (16:54)
[2017-11-17] MEDS: FOLIC ACID/VITAMIN B COMP W-C CAPSULE PO SCH (16:54)
[2017-11-17] MEDS: FUROSEMIDE 40 MG TABLET PO SCH (16:54)
[2017-11-17] MEDS: LANSOPRAZOLE 15 MG TAB.RAP.DR PO SCH (16:54)
[2017-11-17] MEDS: SITAGLIPTIN PHOSPHATE 25 MG TABLET PO SCH (16:54)
[2017-11-17] MEDS: NYSTATIN TOPICAL POWDER 15 GM TP SCH ×2 (16:54→18:57)
--- NOTE | 2017-11-17 19:25 | PDOC PROGRESS REPORT ---
Subjective Progress Note for:: 11/17/17 Subjective:: Patient is obtunded, yesterday chest x-ray was done it showed pleural effusion bilaterally the right more than the left, thoracentesis was ordered but this could not be done because patient is on anticoagulant Eliquis, yesterday he was found to have respiratory acidosis with CO2 narcosis he was supported with noninvasive positive pressure ventilation BiPAP despite the support patient remains obtunded with tachycardia and increased blood pressure, he was transferred to ICU with the intent to intubate patient ,but so far he remains stable on BiPAP intubation is an hold. I spoke to patient's daughter about patient's condition and patient CODE STATUS, patient wishes to be a DNR, this was ordered in the record the patient wants to be a DNR ,he does not want life support or any form of resuscitation in case he developed cardiac arrest. Reason For Visit: SEPSIS DUE TO UTI Physical Exam Vital Signs: Temp Pulse Resp BP Pulse Ox 97.9 F 125 H 20 151/104 H 100 11/17/17 11:41 11/17/17 11:41 11/17/17 17:00 11/17/17 11:41 11/17/17 17:00 Intake & Output 11/16/17 11/17/17 11/18/17 06:59 06:59 06:59 Intake Total 248 205 Output Total 1999 2127 375 [facility] -[phone] -375 Weight 81.8 kg 79.605 kg General appearance: PRESENT: other - Obtunded Eye exam: PRESENT: PERRLA Respiratory exam: PRESENT: decreased breath sounds Cardiovascular exam: PRESENT: +S1, +S2 GI/Abdominal exam: PRESENT: soft Neurological exam: PRESENT: altered Results Laboratory Results: 11/17/17 12:00 11/17/17 12:00 11/17/17 11/17/17 11/17/17 11:00 12:00 12:00 WBC 8.4 RBC 4.45 Hgb 11.7 L Hct 35.9 L MCV 81 MCH 26.2 L MCHC 32.5 RDW 16.1 H Plt Count 184 Seg Neutrophils % 77.6 Lymphocytes % 10.3 L Monocytes % 8.8 Eosinophils % 2.4 Basophils % 0.9 Absolute Neutrophils 6.5 Absolute Lymphocytes 0.9 Absolute Monocytes 0.7 Absolute Eosinophils 0.2 Absolute Basophils 0.1 Carbonic Acid 1.11 HCO3/H2CO3 Ratio 21:1 ABG pH 7.43 ABG pCO2 37.0 ABG pO2 108.1 H ABG HCO3 23.8 ABG O2 Saturation 98.1 H ABG Base Excess -0.3 FiO2 35% Sodium 149.9 H Potassium 3.5 L Chloride 110 H Carbon Dioxide 26 Anion Gap 14 BUN 37 H Creatinine 1.74 H Est GFR ( Amer) 46 L Est GFR (Non-Af Amer) 38 L Glucose 119 H Calcium 9.3 Phosphorus 3.7 Magnesium 1.5 L Total Bilirubin 0.6 AST 12 L ALT 19 L Alkaline Phosphatase 119 Total Protein 6.3 Albumin 3.3 L 11/17/17 13:45 WBC RBC Hgb Hct MCV MCH MCHC RDW Plt Count Seg Neutrophils % Lymphocytes % Monocytes % Eosinophils % Basophils % Absolute Neutrophils Absolute Lymphocytes Absolute Monocytes Absolute Eosinophils Absolute Basophils Carbonic Acid 1.26 HCO3/H2CO3 Ratio 18:1 ABG pH 7.37 ABG pCO2 42.0 ABG pO2 104.5 H ABG HCO3 23.9 ABG O2 Saturation 97.7 ABG Base Excess -1.3 FiO2 35% Sodium Potassium Chloride Carbon Dioxide Anion Gap BUN Creatinine Est GFR ( Amer) Est GFR (Non-Af Amer) Glucose Calcium Phosphorus Magnesium Total Bilirubin AST ALT Alkaline Phosphatase Total Protein Albumin 11/16/17 12:46 NT-Pro-B Natriuret Pep 10108 H Impressions: Chest X-Ray 11/16/17 00:00 IMPRESSION: Bilateral pleural effusions with bibasilar airspace disease right greater than left. Moderate cardiomegaly, left-sided dual lead pacemaker Assessment & Plan - Diagnosis (1) Catheter-associated urinary tract infection Qualifiers: Indwelling urinary catheter type: cystostomy catheter Encounter type: initial encounter Qualified Code(s): T83.510A - Infection and inflammatory reaction due to cystostomy catheter, initial encounter; N39.0 - Urinary tract infection, site not specified; N39.0 - Urinary tract infection, site not specified Is this a current diagnosis for this admission?: Yes (2) Obstructed suprapubic catheter Qualifiers: Encounter type: initial encounter Qualified Code(s): T83.090A - Other mechanical complication of cystostomy catheter, initial encounter Is this a current diagnosis for this admission?: Yes (3) Sepsis Qualifiers: Sepsis type: sepsis due to unspecified organism Qualified Code(s): A41.9 - Sepsis, unspecified organism Is this a current diagnosis for this admission?: Yes (4) Acute kidney injury Is this a current diagnosis for this admission?: Yes (5) Respiratory failure with hypercapnia Qualifiers: Chronicity: acute Qualified Code(s): J96.02 - Acute respiratory failure with hypercapnia Is this a current diagnosis for this admission?: Yes Plan: Continue noninvasive positive pressure ventilation with BiPAP, patient DNR status (6) Pleural effusion Is this a current diagnosis for this admission?: Yes Plan: Patient to have thoracentesis tomorrow (7) Metabolic encephalopathy Is this a current diagnosis for this admission?: Yes (8) Obtundation Is this a current diagnosis for this admission?: Yes Plan: This is most likely metabolic encephalopathy, CT head is to rule out a stroke - Time Time Spent with patient: 35 or more minutes - Inpatient Certification Based on my medical assessment, after consideration of the patient's comorbidities, presenting symptoms, or acuity I expect that the services needed warrant INPATIENT care.: Yes I certify that my determination is in accordance with my understanding of Medicare's requirements for reasonable and necessary INPATIENT services [42 CFR 412.3e].: Yes
--- NOTE | 2017-11-17 20:16 | RADIOLOGY REPORT (SQ) ---
EXAM DESCRIPTION: CT HEAD WITHOUT COMPLETED DATE/TIME: 11/17/2017 7:46 pm REASON FOR STUDY: unresponsive COMPARISON: 10/31/2016 TECHNIQUE: Axial images acquired through the brain without intravenous contrast. Images reviewed wi th bone, brain and subdural windows. Images stored on PACS. All CT scanners at this facility use dose modulation, iterative reconstruction, and/or weight based d osing when appropriate to reduce radiation dose to as low as reasonably achievable (ALARA). [facility]: Dose Right [facility]: CareDose [facility]: Dose Right [facility]: Teradose 4D [facility]: Smart Xendo RADIATION DOSE: CT Rad equipment meets quality standard of care and radiation dose reduction techniq ues were employed. CTDIvol: 53.2 mGy. DLP: 937 mGy-cm. mGy. LIMITATIONS: None. FINDINGS: VENTRICLES: Age-appropriate. CEREBRUM: No masses. No hemorrhage. No midline shift. Areas of low density in the white matter mos t likely due to chronic micro-vascular ischemic change. No evidence for acute infarction. CEREBELLUM: No masses. No hemorrhage. No alteration of density. No evidence for acute infarction. EXTRAAXIAL SPACES: Mild age-related involutional change. No fluid collections. No masses. ORBITS AND GLOBE: No intra- or extraconal masses. Normal contour of globe without masses. CALVARIUM: No fracture. PARANASAL SINUSES: No fluid or mucosal thickening. SOFT TISSUES: No mass or hematoma. OTHER: No other significant finding. IMPRESSION: No acute intracranial findings. EVIDENCE OF ACUTE STROKE: NO. TECHNICAL DOCUMENTATION: JOB ID: [id number] [place]-72 Quality ID # [id number]: Final reports with documentation of one or more dose reduction techniques (e.g., Au tomated exposure control, adjustment of the mA and/or kV according to patient size, use of iterative reconstruction technique) 2010 [employer]- All Rights Reserved Reading location - IP/workstation name: [email or web address]
--- NOTE | 2017-11-17 20:17 | RADIOLOGY REPORT (SQ) ---
EXAM DESCRIPTION: NASO/OROGASTRIC TUBE PLACEMENT COMPLETED DATE/TIME: 11/17/2017 7:47 pm REASON FOR STUDY: to administer medication and food COMPARISON: None. TECHNIQUE: Single view upper abdomen LIMITATIONS: None. FINDINGS: Nasogastric catheter tip overlies the body of the stomach with side port below the GE junc tion. IMPRESSION: Nasogastric catheter tip overlies the body of the stomach with side port below the GE ju nction. TECHNICAL DOCUMENTATION: JOB ID: [id number] [place]-72 2010 [employer]- All Rights Reserved Reading location - IP/workstation name: [employer]
[2017-11-17] MEDS: FENTANYL CITRATE INJ/PF 100 MCG/2 ML AMPUL IV PRN (23:22)
[2017-11-18] MEDS: IPRATROPIUM/ALBUTEROL 0.5-2.5 MG/3 ML AMPUL NEB PRN ×2 (02:46→15:20)
[2017-11-18 04:18] LABS: ABSOLUTE BASOPHILS # (AUTO) 0.1 10^3/uL (0.0-0.2); ABSOLUTE EOSINOPHILS # (AUTO) 0.2 10^3/uL (0.0-0.6); ABSOLUTE LYMPHOCYTES (AUTO) 0.8 10^3/uL (0.5-4.7); ABSOLUTE MONOCYTES (AUTO) 0.7 10^3/uL (0.1-1.4); ABSOLUTE NEUT (AUTO) 6.3 10^3/uL (1.7-8.2); BASOPHILS % (AUTO) 1.2 % (0-2); EOSINOPHILS % (AUTO) 2.6 % (0-6); HEMATOCRIT 35.2 % (37.9-51.0); HEMOGLOBIN 11.4 g/dL (13.5-17.0); LYMPHOCYTES % (AUTO) 10.2 % (13-45); MEAN CORPUSCULAR HEMOGLOBIN 26.1 pg (27.0-33.4); MEAN CORPUSCULAR HGB CONC 32.4 g/dL (32.0-36.0); MEAN CORPUSCULAR VOLUME 81 fl (80-97); PLATELET COUNT 191 10^3/uL (150-450); RED BLOOD COUNT 4.37 10^6/uL (4.35-5.55); TOTAL CELLS COUNTED % (AUTO) 100 %; WHITE BLOOD COUNT 8.2 10^3/uL (4.0-10.5)
[2017-11-18 04:53] LABS: ALANINE AMINOTRANSFERASE 14 U/L (21-72); ALBUMIN 3.1 g/dL (3.5-5.0); ALKALINE PHOSPHATASE 112 U/L (38-126); ANION GAP 12 (5-19); ASPARTATE AMINO TRANSFERASE 17 U/L (17-59); BILIRUBIN,DIRECT 0.6 mg/dL (0.0-0.4); BILIRUBIN,TOTAL 0.6 mg/dL (0.2-1.3); BLOOD UREA NITROGEN 41 mg/dL (7-20); CARBON DIOXIDE 28 mmol/L (22-30); CHLORIDE 112 mmol/L (98-107); GLUCOSE 121 mg/dL (75-110); PHOSPHORUS 3.7 mg/dL (2.5-4.5); POTASSIUM 3.3 mmol/L (3.6-5.0); SODIUM 151.8 mmol/L (137-145); TOTAL PROTEIN 6.9 g/dL (6.3-8.2)
[2017-11-18 06:00] LABS: ARTERIAL BLOOD BASE EXCESS -0.2 mmol/L; ARTERIAL BLOOD H2CO3 1.22 mmol/L (1.05-1.35); ARTERIAL BLOOD HCO3 24.6 mmol/L (20-26); ARTERIAL BLOOD O2 SATURATION 94.8 % (94-98); ARTERIAL BLOOD PCO2 40.5 mmHg (35-45); ARTERIAL BLOOD PO2 73.1 mmHg (80-100); ARTERIAL BLOOD TOTAL CO2 25.8 mmol/L (23-27)
[2017-11-18 06:01] LABS: ARTERIAL BLOOD FIO2 2L
--- NOTE | 2017-11-18 07:24 | RADIOLOGY REPORT (SQ) ---
EXAM DESCRIPTION: XR CHEST 1 VIEW COMPLETED DATE/TME: 11/18/2017 06:00 CLINICAL HISTORY: 82 years Male, pleural effusions COMPARISON: 2 days prior. NUMBER OF VIEWS/TECHNIQUE: 1/AP FINDINGS: Large opacity-effusion of the right lower 70% hemithorax, mild hazy opacity-effusion of the left lower hemithorax, moderate left lower lobar opacity, moderate interstitial markings, mildly enlarged cardiac silhouette, left cardiac stimulator with leads, left total shoulder arthroplasty, and adequate appearing enteric tube. No pneumothorax. No acute bone defect. IMPRESSION: No significant change.
[2017-11-18] MEDS ORDERED: INSULIN GLARGINE,HUM.REC.ANLOG 1,000 UNIT/10 ML UNIT SUBCUT SCH (08:00)
[2017-11-18] MEDS: AMIODARONE HCL 200 MG TABLET PO SCH (08:25)
[2017-11-18] MEDS: CITALOPRAM HYDROBROMIDE 20 MG TABLET PO SCH (08:25)
[2017-11-18] MEDS: FUROSEMIDE 40 MG TABLET PO SCH (08:26)
[2017-11-18] MEDS: METOPROLOL SUCCINATE 25 MG TAB.SR.24H PO SCH (08:27)
[2017-11-18] MEDS: FOLIC ACID/VITAMIN B COMP W-C CAPSULE PO SCH (08:39)
[2017-11-18] MEDS: INSULIN GLARGINE,HUM.REC.ANLOG 300 UNIT/3 ML INSULN.PEN SUBCUT SCH (08:40)
[2017-11-18] MEDS ORDERED: LIDOCAINE 1% INJ-PF (10 MG/ML) 30 ML SDV ONE (09:48)
[2017-11-18 10:09] LABS: CREATINE KINASE MB 1.71 ng/mL (<4.55); TROPONIN I 0.013 ng/mL
[2017-11-18 11:39] LABS: FLUID TYPE PLEURAL
[2017-11-18 11:40] LABS: FLUID APPEARANCE SLIGHTLY HAZY; FLUID COLOR YELLOW; FLUID VISCOSITY LIQUID
--- NOTE | 2017-11-18 11:44 | RADIOLOGY REPORT (SQ) ---
EXAM DESCRIPTION: CHEST SINGLE VIEW COMPLETED DATE/TIME: 11/18/2017 10:58 am REASON FOR STUDY: POST THORACENTESIS COMPARISON: Earlier the same day. NUMBER OF VIEWS: One view. TECHNIQUE: Single frontal radiographic image of the chest acquired. LIMITATIONS: None. FINDINGS: LUNGS AND PLEURA: Interval decrease in right pleural effusion. No pneumothorax. MEDIASTINUM AND HEART: Stable heart size and mediastinal structures. SUPPORT DEVICES: Appropriate location without change. BONY STRUCTURES: No acute findings. HARDWARE: None. OTHER: No other significant finding. IMPRESSION: No pneumothorax. Reading location - IP/workstation name: [email or web address]
[2017-11-18] MEDS: CEFTRIAXONE 2 GM/D5W RTU 2 GM/50 ML RTUPB IV SCH (11:54)
[2017-11-18] MEDS: SITAGLIPTIN PHOSPHATE 25 MG TABLET PO SCH (11:55)
[2017-11-18] MEDS: DOCUSATE SODIUM 100 MG CAPSULE PO SCH ×2 (11:55→22:25)
[2017-11-18] MEDS: POTASSIUM CHLORIDE 10 MEQ CAPSULE.ER PO SCH ×2 (11:56→22:25)
[2017-11-18] MEDS: LANSOPRAZOLE 15 MG TAB.RAP.DR PO SCH (11:56)
[2017-11-18] MEDS: NYSTATIN TOPICAL POWDER 15 GM TP SCH ×2 (11:58→17:28)
--- NOTE | 2017-11-18 13:00 | RADIOLOGY REPORT (SQ) ---
EXAM DESCRIPTION: U/S THORACENTESIS WITH IMAGING COMPLETED DATE/TIME: 11/18/2017 10:51 am REASON FOR STUDY: pleural effusion COMPARISON: Pre procedure chest films 11/18/2017 Chest films 11/17/2017, 11/16/2017, 10/30/2016 LIMITATIONS: None. PROCEDURE: Procedure, risks, benefit, and alternative explained to patient's family who then gave wr itten consent. The lateral right chest wall was marked using ultrasound guidance. A time-out was ca lled for correct marking verification. Chest prepped and draped using sterile technique. Local anest hesia achieved using 6 ml of 1% lidocaine injection. A 6fr Safe-T- Centesis set was introduced into the right pleural space. Fluid was aspirated. The catheter was removed and the entry site was cover ed with sterile bandage. No immediate complications noted. 1000 mL of clear straw-colored fluid was withdrawn from the right pleural space, sent for testing. Images acquired during the procedure were stored on PACS. FINDINGS: ENTRY SITE: Right lateral chest FLUID VOLUME: 1000 mL FLUID ANALYSIS: Clear yellow fluid OTHER: Fluid sent for testing as per Dr. Shelton IMPRESSION: SUCCESSFUL THORACENTESIS USING ULTRASOUND GUIDANCE. COMMENT: Patient medication list reviewed: Yes- Quality ID# [id number]:Eligible professional attests to doc umenting in the medical record they obtained, updated, or reviewed the patient's current medications. TECHNICAL DOCUMENTATION: JOB ID: [id number] [employer]- All Rights Reserved Reading location - IP/workstation name: [email or web address]
--- NOTE | 2017-11-18 13:32 | EKG REPORT ---
SEVERITY:- ABNORMAL ECG - SINUS RHYTHM NONSPECIFIC INTRAVENTRICULAR CONDUCTION DELAY ST DEPRESSION, CONSIDER ISCHEMIA, ANT-LAT LDS : Confirmed by: Escobar Watters MD 18-Nov-2017 13:31:58
--- NOTE | 2017-11-18 14:28 | RADIOLOGY REPORT (SQ) ---
EXAM DESCRIPTION: CHEST SINGLE VIEW COMPLETED DATE/TIME: 11/18/2017 2:10 pm REASON FOR STUDY: post thoracentesis COMPARISON: Chest films 11/18/2017, 1033 hours and 11/18/2017, 0557 hours EXAM PARAMETERS: NUMBER OF VIEWS: One view. TECHNIQUE: Single frontal radiographic view of the chest acquired. RADIATION DOSE: NA LIMITATIONS: None. FINDINGS: LUNGS AND PLEURA: 2 hours post right thoracentesis. No pneumothorax. Small residual righ t pleural effusion is present with right upper middle and lower lobe airspace disease, atelectasis ve rsus pneumonia. Left retrocardiac consolidation atelectasis versus pneumonia. No left pleural effusion. No left pne umothorax. MEDIASTINUM AND HILAR STRUCTURES: No masses. Contour normal. HEART AND VASCULAR STRUCTURES: Stable cardiomegaly BONES: No acute findings. HARDWARE: Unchanged left-sided dual lead pacemaker OTHER: No other significant finding. IMPRESSION: No pneumothorax 2 hours post right thoracentesis TECHNICAL DOCUMENTATION: JOB ID: [id number] [employer]- All Rights Reserved Reading location - IP/workstation name: [email or web address]
--- NOTE | 2017-11-18 16:18 | PDOC PROGRESS REPORT ---
Subjective Progress Note for:: 11/18/17 Subjective:: awake Reason For Visit: SEPSIS DUE TO UTI Physical Exam Vital Signs: Temp Pulse Resp BP Pulse Ox 97.6 F 60 17 173/77 H 100 11/18/17 08:00 11/18/17 08:00 11/18/17 08:00 11/18/17 08:00 11/18/17 08:00 Intake & Output 11/17/17 11/18/17 11/19/17 06:59 06:59 06:59 Intake Total 205 283 360 Output Total 2300 1755 100 Balance -2095 -1472 260 Weight 79.605 kg 70.8 kg General appearance: PRESENT: no acute distress, disheveled. ABSENT: cooperative Head exam: PRESENT: atraumatic, normocephalic Eye exam: PRESENT: conjunctiva pale, EOMI. ABSENT: nystagmus, periorbital swelling, scleral icterus Mouth exam: PRESENT: dry mucosa, neck supple, tongue midline Neck exam: ABSENT: carotid bruit, JVD, lymphadenopathy, thyromegaly, tracheal deviation, tracheostomy Respiratory exam: PRESENT: decreased breath sounds, prolonged expiratory phas, rales, rhonchi, unlabored. ABSENT: retraction, stridor Cardiovascular exam: PRESENT: RRR, +S1, +S2 Pulses: PRESENT: normal radial pulses GI/Abdominal exam: PRESENT: other - new PEG tube Extremities exam: ABSENT: calf tenderness, clubbing, joint swelling, pedal edema Musculoskeletal exam: ABSENT: deformity, dislocation Neurological exam: PRESENT: awake, oriented to person. ABSENT: oriented to place, oriented to time, oriented to situation Psychiatric exam: PRESENT: flat affect Skin exam: PRESENT: dry, warm Results Laboratory Results: 11/18/17 04:02 11/18/17 04:02 11/17/17 11/17/17 11/17/17 11:00 12:00 12:00 WBC 8.4 RBC 4.45 Hgb 11.7 L Hct 35.9 L MCV 81 MCH 26.2 L MCHC 32.5 RDW 16.1 H Plt Count 184 Seg Neutrophils % 77.6 Lymphocytes % 10.3 L Monocytes % 8.8 Eosinophils % 2.4 Basophils % 0.9 Absolute Neutrophils 6.5 Absolute Lymphocytes 0.9 Absolute Monocytes 0.7 Absolute Eosinophils 0.2 Absolute Basophils 0.1 Carbonic Acid 1.11 HCO3/H2CO3 Ratio 21:1 ABG pH 7.43 ABG pCO2 37.0 ABG pO2 108.1 H ABG HCO3 23.8 ABG O2 Saturation 98.1 H ABG Base Excess -0.3 FiO2 35% Sodium 149.9 H Potassium 3.5 L Chloride 110 H Carbon Dioxide 26 Anion Gap 14 BUN 37 H Creatinine 1.74 H Est GFR ( Amer) 46 L Est GFR (Non-Af Amer) 38 L Glucose 119 H Lactic Acid Calcium 9.3 Phosphorus 3.7 Magnesium 1.5 L Total Bilirubin 0.6 AST 12 L ALT 19 L Alkaline Phosphatase 119 Total Protein 6.3 Albumin 3.3 L 11/17/17 11/18/17 11/18/17 13:45 04:02 04:02 WBC 8.2 RBC 4.37 Hgb 11.4 L Hct 35.2 L MCV 81 MCH 26.1 L MCHC 32.4 RDW 16.0 H Plt Count 191 Seg Neutrophils % 77.0 Lymphocytes % 10.2 L Monocytes % 9.0 Eosinophils % 2.6 Basophils % 1.2 Absolute Neutrophils 6.3 Absolute Lymphocytes 0.8 Absolute Monocytes 0.7 Absolute Eosinophils 0.2 Absolute Basophils 0.1 Carbonic Acid 1.26 HCO3/H2CO3 Ratio 18:1 ABG pH 7.37 ABG pCO2 42.0 ABG pO2 104.5 H ABG HCO3 23.9 ABG O2 Saturation 97.7 ABG Base Excess -1.3 FiO2 35% Sodium 151.8 H Potassium 3.3 L Chloride 112 H Carbon Dioxide 28 Anion Gap 12 BUN 41 H Creatinine 1.91 H Est GFR ( Amer) 41 L Est GFR (Non-Af Amer) 34 L Glucose 121 H Lactic Acid Calcium 10.0 Phosphorus 3.7 Magnesium 1.6 Total Bilirubin 0.6 AST 17 ALT 14 L Alkaline Phosphatase 112 Total Protein 6.9 Albumin 3.1 L 11/18/17 11/18/17 04:02 05:45 WBC RBC Hgb Hct MCV MCH MCHC RDW Plt Count Seg Neutrophils % Lymphocytes % Monocytes % Eosinophils % Basophils % Absolute Neutrophils Absolute Lymphocytes Absolute Monocytes Absolute Eosinophils Absolute Basophils Carbonic Acid 1.22 HCO3/H2CO3 Ratio 20:1 ABG pH 7.40 ABG pCO2 40.5 ABG pO2 73.1 L ABG HCO3 24.6 ABG O2 Saturation 94.8 ABG Base Excess -0.2 FiO2 2L Sodium Potassium Chloride Carbon Dioxide Anion Gap BUN Creatinine Est GFR ( Amer) Est GFR (Non-Af Amer) Glucose Lactic Acid 1.1 Calcium Phosphorus Magnesium Total Bilirubin AST ALT Alkaline Phosphatase Total Protein Albumin 11/16/17 11/18/17 12:46 04:02 NT-Pro-B Natriuret Pep 86411 H 10176 H Impressions: Gastrostomy Tube Placement 11/17/17 00:00 IMPRESSION: Nasogastric catheter tip overlies the body of the stomach with side port below the GE junction. Head CT 11/17/17 00:00 IMPRESSION: No acute intracranial findings. EVIDENCE OF ACUTE STROKE: NO. Chest X-Ray 11/18/17 06:00 IMPRESSION: No significant change. Assessment & Plan - Diagnosis (1) Atrial fibrillation Qualifiers: Atrial fibrillation type: chronic Qualified Code(s): I48.2 - Chronic atrial fibrillation Is this a current diagnosis for this admission?: Yes Plan: tachycardia but rate decreased over last 24h (2) Hypertension Qualifiers: Hypertension type: essential hypertension Qualified Code(s): I10 - Essential (primary) hypertension Is this a current diagnosis for this admission?: Yes Plan: stable (3) Altered mental status Qualifiers: Altered mental status type: delirium Qualified Code(s): R41.0 - Disorientation, unspecified Is this a current diagnosis for this admission?: Yes Plan: improved level of consciousness (4) Obstructed suprapubic catheter Qualifiers: Encounter type: initial encounter Qualified Code(s): T83.090A - Other mechanical complication of cystostomy catheter, initial encounter Is this a current diagnosis for this admission?: Yes (5) Bilateral pleural effusion Is this a current diagnosis for this admission?: Yes Plan: s/p thoracentesis - Time Total Critical Time (Minutes): 45
[2017-11-18 17:19] LABS: ALANINE AMINOTRANSFERASE 14 U/L (21-72); ALBUMIN 3.1 g/dL (3.5-5.0); ALKALINE PHOSPHATASE 123 U/L (38-126); ANION GAP 12 (5-19); ASPARTATE AMINO TRANSFERASE 15 U/L (17-59); BILIRUBIN,DIRECT 0.5 mg/dL (0.0-0.4); BILIRUBIN,TOTAL 0.5 mg/dL (0.2-1.3); BLOOD UREA NITROGEN 42 mg/dL (7-20); CALCIUM 9.8 mg/dL (8.4-10.2); CARBON DIOXIDE 29 mmol/L (22-30); CHLORIDE 110 mmol/L (98-107); GLUCOSE 151 mg/dL (75-110); POTASSIUM 3.5 mmol/L (3.6-5.0); SODIUM 151.4 mmol/L (137-145); TOTAL PROTEIN 6.6 g/dL (6.3-8.2)
--- NOTE | 2017-11-18 20:02 | PDOC PROGRESS REPORT ---
Subjective Progress Note for:: 11/18/17 Subjective:: Patient was seen by the bedside, he had thoracentesis done today 1 L of pleural fluid was removed from the lung. He is alert and oriented today he is no longer requiring noninvasive positive pressure ventilation with BiPAP presently on nasal cannula, also have hypernatremia. Reason For Visit: SEPSIS DUE TO UTI Physical Exam Vital Signs: Temp Pulse Resp BP Pulse Ox 98.0 F 61 21 H 127/88 H 100 11/18/17 19:50 11/18/17 15:21 11/18/17 18:00 11/18/17 17:11 11/18/17 18:00 Intake & Output 11/17/17 11/18/17 11/19/17 06:59 06:59 06:59 Intake Total 325 778 5905 Output Total 2300 1755 1550 Balance -1761 -5208 -363 Weight 79.605 kg 70.8 kg General appearance: PRESENT: no acute distress Eye exam: PRESENT: PERRLA Respiratory exam: PRESENT: clear to auscultation denita Cardiovascular exam: PRESENT: +S1, +S2 GI/Abdominal exam: PRESENT: soft Neurological exam: PRESENT: alert Results Laboratory Results: 11/18/17 04:02 11/18/17 16:45 11/18/17 11/18/17 11/18/17 04:02 04:02 04:02 WBC 8.2 RBC 4.37 Hgb 11.4 L Hct 35.2 L MCV 81 MCH 26.1 L MCHC 32.4 RDW 16.0 H Plt Count 191 Seg Neutrophils % 77.0 Lymphocytes % 10.2 L Monocytes % 9.0 Eosinophils % 2.6 Basophils % 1.2 Absolute Neutrophils 6.3 Absolute Lymphocytes 0.8 Absolute Monocytes 0.7 Absolute Eosinophils 0.2 Absolute Basophils 0.1 Carbonic Acid HCO3/H2CO3 Ratio ABG pH ABG pCO2 ABG pO2 ABG HCO3 ABG O2 Saturation ABG Base Excess FiO2 Sodium 151.8 H Potassium 3.3 L Chloride 112 H Carbon Dioxide 28 Anion Gap 12 BUN 41 H Creatinine 1.91 H Est GFR ( Amer) 41 L Est GFR (Non-Af Amer) 34 L Glucose 121 H Lactic Acid 1.1 Calcium 10.0 Phosphorus 3.7 Magnesium 1.6 Total Bilirubin 0.6 AST 17 ALT 14 L Alkaline Phosphatase 112 Total Protein 6.9 Albumin 3.1 L Fluid Type Fluid Source Fluid Color Fluid Appearance Fluid Viscosity Fluid WBC Fluid RBC 11/18/17 11/18/17 11/18/17 05:45 09:57 16:45 WBC RBC Hgb Hct MCV MCH MCHC RDW Plt Count Seg Neutrophils % Lymphocytes % Monocytes % Eosinophils % Basophils % Absolute Neutrophils Absolute Lymphocytes Absolute Monocytes Absolute Eosinophils Absolute Basophils Carbonic Acid 1.22 HCO3/H2CO3 Ratio 20:1 ABG pH 7.40 ABG pCO2 40.5 ABG pO2 73.1 L ABG HCO3 24.6 ABG O2 Saturation 94.8 ABG Base Excess -0.2 FiO2 2L Sodium 151.4 H Potassium 3.5 L Chloride 110 H Carbon Dioxide 29 Anion Gap 12 BUN 42 H Creatinine 1.85 H Est GFR ( Amer) 42 L Est GFR (Non-Af Amer) 35 L Glucose 151 H Lactic Acid Calcium 9.8 Phosphorus Magnesium 1.6 Total Bilirubin 0.5 AST 15 L ALT 14 L Alkaline Phosphatase 123 Total Protein 6.6 Albumin 3.1 L Fluid Type PLEURAL Fluid Source Fluid Color YELLOW Fluid Appearance SLIGHTLY HAZY Fluid Viscosity LIQUID Fluid WBC 183 Fluid RBC 700 11/16/17 11/18/17 11/18/17 12:46 04:02 09:25 Creatine Kinase < 20 L CK-MB (CK-2) Troponin I NT-Pro-B Natriuret Pep 67578 H 17034 H 11/18/17 09:25 Creatine Kinase CK-MB (CK-2) 1.71 Troponin I 0.013 NT-Pro-B Natriuret Pep Impressions: Gastrostomy Tube Placement 11/17/17 00:00 IMPRESSION: Nasogastric catheter tip overlies the body of the stomach with side port below the GE junction. Head CT 11/17/17 00:00 IMPRESSION: No acute intracranial findings. EVIDENCE OF ACUTE STROKE: NO. Chest X-Ray 11/18/17 12:10 IMPRESSION: No pneumothorax 2 hours post right thoracentesis Thoracentesis Ultrasound 11/18/17 13:09 IMPRESSION: SUCCESSFUL THORACENTESIS USING ULTRASOUND GUIDANCE. Assessment & Plan - Diagnosis (1) Catheter-associated urinary tract infection Qualifiers: Indwelling urinary catheter type: cystostomy catheter Encounter type: initial encounter Qualified Code(s): T83.510A - Infection and inflammatory reaction due to cystostomy catheter, initial encounter; N39.0 - Urinary tract infection, site not specified; N39.0 - Urinary tract infection, site not specified Is this a current diagnosis for this admission?: Yes (2) Obstructed suprapubic catheter Qualifiers: Encounter type: initial encounter Qualified Code(s): T83.090A - Other mechanical complication of cystostomy catheter, initial encounter Is this a current diagnosis for this admission?: Yes (3) Sepsis Qualifiers: Sepsis type: sepsis due to unspecified organism Qualified Code(s): A41.9 - Sepsis, unspecified organism Is this a current diagnosis for this admission?: Yes (4) Acute kidney injury Is this a current diagnosis for this admission?: Yes (5) Respiratory failure with hypercapnia Qualifiers: Chronicity: acute Qualified Code(s): J96.02 - Acute respiratory failure with hypercapnia Is this a current diagnosis for this admission?: Yes (6) Pleural effusion Is this a current diagnosis for this admission?: Yes (7) Metabolic encephalopathy Is this a current diagnosis for this admission?: Yes (8) Obtundation Is this a current diagnosis for this admission?: Yes - Plan Summary Plan Summary: The analysis of the pleural fluid result is pending, continue present treatment
[2017-11-18] MEDS: 1/2 NORMAL SALINE 1,000 ML IV PRN (22:26)
[2017-11-19 04:15] LABS: ABSOLUTE BASOPHILS # (AUTO) 0.1 10^3/uL (0.0-0.2); ABSOLUTE EOSINOPHILS # (AUTO) 0.2 10^3/uL (0.0-0.6); ABSOLUTE LYMPHOCYTES (AUTO) 1.3 10^3/uL (0.5-4.7); ABSOLUTE NEUT (AUTO) 6.5 10^3/uL (1.7-8.2); BASOPHILS % (AUTO) 0.7 % (0-2); EOSINOPHILS % (AUTO) 1.9 % (0-6); HEMATOCRIT 34.3 % (37.9-51.0); HEMOGLOBIN 11.2 g/dL (13.5-17.0); LYMPHOCYTES % (AUTO) 14.2 % (13-45); MEAN CORPUSCULAR HEMOGLOBIN 25.9 pg (27.0-33.4); MEAN CORPUSCULAR HGB CONC 32.7 g/dL (32.0-36.0); MEAN CORPUSCULAR VOLUME 79 fl (80-97); MONOCYTES % (AUTO) 11.1 % (3-13); PLATELET COUNT 183 10^3/uL (150-450); RED BLOOD COUNT 4.33 10^6/uL (4.35-5.55); RED CELL DISTRIBUTION WIDTH 16.1 % (11.5-14.0); SEGMENTED NEUTROPHILS % (AUTO) 72.1 % (42-78); TOTAL CELLS COUNTED % (AUTO) 100 %
[2017-11-19 04:16] LABS: INTERNATIONAL RATION (INR) 1.48; PROTHROMBIN TIME 18.7 SEC (11.4-15.4)
[2017-11-19 04:17] LABS: PARTIAL THROMBOPLASTIN TIME 34.4 SEC (23.5-35.8)
[2017-11-19 04:39] LABS: ALANINE AMINOTRANSFERASE 14 U/L (21-72); ALBUMIN 2.7 g/dL (3.5-5.0); ALKALINE PHOSPHATASE 102 U/L (38-126); ANION GAP 10 (5-19); ASPARTATE AMINO TRANSFERASE 14 U/L (17-59); BILIRUBIN,DIRECT 0.5 mg/dL (0.0-0.4); BILIRUBIN,TOTAL 0.5 mg/dL (0.2-1.3); BLOOD UREA NITROGEN 41 mg/dL (7-20); CALCIUM 9.4 mg/dL (8.4-10.2); CARBON DIOXIDE 29 mmol/L (22-30); CHLORIDE 109 mmol/L (98-107); GLUCOSE 148 mg/dL (75-110); PHOSPHORUS 2.6 mg/dL (2.5-4.5); SODIUM 147.9 mmol/L (137-145); TOTAL PROTEIN 5.8 g/dL (6.3-8.2)
[2017-11-19] MEDS: POTASSIUM CHLORIDE 10 MEQ CAPSULE.ER PO SCH ×5 (06:14→23:38)
[2017-11-19] MEDS: CITALOPRAM HYDROBROMIDE 20 MG TABLET PO SCH (07:52)
[2017-11-19] MEDS: FUROSEMIDE 40 MG TABLET PO SCH (07:53)
[2017-11-19] MEDS: AMIODARONE HCL 200 MG TABLET PO SCH (07:53)
[2017-11-19] MEDS: METOPROLOL SUCCINATE 25 MG TAB.SR.24H PO SCH (07:54)
[2017-11-19] MEDS: INSULIN GLARGINE,HUM.REC.ANLOG 300 UNIT/3 ML INSULN.PEN SUBCUT SCH (07:55)
[2017-11-19] MEDS: FOLIC ACID/VITAMIN B COMP W-C CAPSULE PO SCH (07:56)
--- NOTE | 2017-11-19 08:12 | RADIOLOGY REPORT (SQ) ---
EXAM DESCRIPTION: CHEST SINGLE VIEW COMPLETED DATE/TIME: 11/19/2017 7:20 am REASON FOR STUDY: pleural effusion COMPARISON: 11/16/2017, 11/18/2017 chest films EXAM PARAMETERS: NUMBER OF VIEWS: One view. TECHNIQUE: Single frontal radiographic view of the chest acquired. RADIATION DOSE: NA LIMITATIONS: None. FINDINGS: LUNGS AND PLEURA: Trace residual right pleural effusion. Right mid and lower lung consoli dation atelectasis versus pneumonia. There is left retrocardiac consolidation atelectasis versus pneumonia. Trace left pleural fluid. No pneumothorax MEDIASTINUM AND HILAR STRUCTURES: No masses. Contour normal. HEART AND VASCULAR STRUCTURES: Stable cardiomegaly BONES: No acute findings. HARDWARE: Unchanged left-sided dual lead pacemaker OTHER: No other significant finding. IMPRESSION: Persistent bilateral lower lobe consolidation and trace bilateral pleural effusions. TECHNICAL DOCUMENTATION: JOB ID: [id number] [employer]- All Rights Reserved Reading location - IP/workstation name: [email or web address]
--- NOTE | 2017-11-19 09:53 | PDOC PROGRESS REPORT ---
Subjective Progress Note for:: 11/19/17 Subjective:: Patient is feeling much better Patient is more alert awake back to the baseline's Was admitted because of the septic shock and multiple other comorbidities and hematuria UTI and respiratory distress Known to me very well and currently living in nursing homes with the history of the bladder cancers coronary disease and multiple other comorbidities Reason For Visit: SEPSIS DUE TO UTI Physical Exam Vital Signs: Temp Pulse Resp BP Pulse Ox 97.6 F 62 19 117/75 100 11/19/17 08:00 11/19/17 08:00 11/19/17 06:12 11/19/17 06:12 11/19/17 06:12 Intake & Output 11/18/17 11/19/17 11/20/17 06:59 06:59 06:59 Intake Total 283 2310 200 Output Total 1755 2400 100 Balance -1472 -90 100 Weight 70.8 kg 69.2 kg General appearance: PRESENT: no acute distress, well-developed, well-nourished Head exam: PRESENT: atraumatic, normocephalic Eye exam: PRESENT: conjunctiva pink, EOMI, PERRLA. ABSENT: scleral icterus Ear exam: PRESENT: normal external ear exam Mouth exam: PRESENT: moist, tongue midline Neck exam: PRESENT: full ROM. ABSENT: carotid bruit, JVD, lymphadenopathy, thyromegaly Respiratory exam: PRESENT: clear to auscultation denita Cardiovascular exam: PRESENT: RRR. ABSENT: diastolic murmur, rubs, systolic murmur Pulses: PRESENT: normal dorsalis pedis pul, +2 pedal pulses bilateral Vascular exam: PRESENT: normal capillary refill GI/Abdominal exam: PRESENT: normal bowel sounds, soft. ABSENT: distended, guarding, mass, organolmegaly, rebound, tenderness Rectal exam: PRESENT: deferred Neurological exam: PRESENT: alert, awake, oriented to person, oriented to place. ABSENT: motor sensory deficit Psychiatric exam: PRESENT: appropriate affect, normal mood. ABSENT: homicidal ideation, suicidal ideation Skin exam: PRESENT: dry, intact, warm. ABSENT: cyanosis, rash Results Laboratory Results: 11/19/17 03:43 11/19/17 03:43 11/18/17 11/18/17 11/19/17 09:57 16:45 03:43 WBC 9.0 RBC 4.33 L Hgb 11.2 L Hct 34.3 L MCV 79 L MCH 25.9 L MCHC 32.7 RDW 16.1 H Plt Count 183 Seg Neutrophils % 72.1 Lymphocytes % 14.2 Monocytes % 11.1 Eosinophils % 1.9 Basophils % 0.7 Absolute Neutrophils 6.5 Absolute Lymphocytes 1.3 Absolute Monocytes 1.0 Absolute Eosinophils 0.2 Absolute Basophils 0.1 Sodium 151.4 H Potassium 3.5 L Chloride 110 H Carbon Dioxide 29 Anion Gap 12 BUN 42 H Creatinine 1.85 H Est GFR ( Amer) 42 L Est GFR (Non-Af Amer) 35 L Glucose 151 H Calcium 9.8 Phosphorus Magnesium 1.6 Total Bilirubin 0.5 AST 15 L ALT 14 L Alkaline Phosphatase 123 Total Protein 6.6 Albumin 3.1 L Fluid Type PLEURAL Fluid Source Fluid Color YELLOW Fluid Appearance SLIGHTLY HAZY Fluid Viscosity LIQUID Fluid WBC 183 Fluid RBC 700 11/19/17 03:43 WBC RBC Hgb Hct MCV MCH MCHC RDW Plt Count Seg Neutrophils % Lymphocytes % Monocytes % Eosinophils % Basophils % Absolute Neutrophils Absolute Lymphocytes Absolute Monocytes Absolute Eosinophils Absolute Basophils Sodium 147.9 H Potassium 3.0 L* Chloride 109 H Carbon Dioxide 29 Anion Gap 10 BUN 41 H Creatinine 1.68 H Est GFR ( Amer) 47 L Est GFR (Non-Af Amer) 39 L Glucose 148 H Calcium 9.4 Phosphorus 2.6 Magnesium 1.5 L Total Bilirubin 0.5 AST 14 L ALT 14 L Alkaline Phosphatase 102 Total Protein 5.8 L Albumin 2.7 L Fluid Type Fluid Source Fluid Color Fluid Appearance Fluid Viscosity Fluid WBC Fluid RBC 11/16/17 11/18/17 11/18/17 12:46 04:02 09:25 Creatine Kinase < 20 L CK-MB (CK-2) Troponin I NT-Pro-B Natriuret Pep 40377 H 14602 H 11/18/17 11/19/17 09:25 03:43 Creatine Kinase CK-MB (CK-2) 1.71 Troponin I 0.013 NT-Pro-B Natriuret Pep 43239 H Impressions: Gastrostomy Tube Placement 11/17/17 00:00 IMPRESSION: Nasogastric catheter tip overlies the body of the stomach with side port below the GE junction. Head CT 11/17/17 00:00 IMPRESSION: No acute intracranial findings. EVIDENCE OF ACUTE STROKE: NO. Thoracentesis Ultrasound 11/18/17 13:09 IMPRESSION: SUCCESSFUL THORACENTESIS USING ULTRASOUND GUIDANCE. Chest X-Ray 11/19/17 06:00 IMPRESSION: Persistent bilateral lower lobe consolidation and trace bilateral pleural effusions. Assessment & Plan - Diagnosis (1) Acute kidney injury Is this a current diagnosis for this admission?: Yes (2) Bilateral pleural effusion Is this a current diagnosis for this admission?: Yes (3) Catheter-associated urinary tract infection Qualifiers: Indwelling urinary catheter type: cystostomy catheter Encounter type: initial encounter Qualified Code(s): T83.510A - Infection and inflammatory reaction due to cystostomy catheter, initial encounter; N39.0 - Urinary tract infection, site not specified; N39.0 - Urinary tract infection, site not specified Is this a current diagnosis for this admission?: Yes (4) Metabolic encephalopathy Is this a current diagnosis for this admission?: Yes (5) Respiratory failure with hypercapnia Qualifiers: Chronicity: acute Qualified Code(s): J96.02 - Acute respiratory failure with hypercapnia Is this a current diagnosis for this admission?: Yes (6) Sepsis Qualifiers: Sepsis type: sepsis due to unspecified organism Qualified Code(s): A41.9 - Sepsis, unspecified organism Is this a current diagnosis for this admission?: Yes (7) Anemia Qualifiers: Chronic kidney disease stage: stage 3 (moderate) Is this a current diagnosis for this admission?: Yes (8) Atrial fibrillation Qualifiers: Atrial fibrillation type: chronic Qualified Code(s): I48.2 - Chronic atrial fibrillation Is this a current diagnosis for this admission?: Yes (9) Bladder cancer Qualifiers: Bladder location: unspecified site Qualified Code(s): C67.9 - Malignant neoplasm of bladder, unspecified Is this a current diagnosis for this admission?: Yes (10) Congestive heart failure Qualifiers: Qualified Code(s): I50.22 - Chronic systolic (congestive) heart failure Is this a current diagnosis for this admission?: Yes (11) Coronary artery disease Qualifiers: Coronary Disease-Associated Artery/Lesion type: unspecified vessel or lesion type Is this a current diagnosis for this admission?: Yes (12) Generalized weakness Is this a current diagnosis for this admission?: Yes (13) Pacemaker Is this a current diagnosis for this admission?: Yes - Time Time Spent with patient: 15-24 minutes Medications reviewed and adjusted accordingly: Yes Anticipated discharge: SNF Within: Other - Inpatient Certification Medical Necessity: Need Close Monitoring Due to Risk of Patient Decompensation, Need for IV Antibiotics Post Hospital Care: D/C Women Nurse Documentation - Plan Summary Plan Summary: Patient is currently doing fair Continues to current medications PT evaluation As per the patient's in IMCU
[2017-11-19] MEDS: MAGNESIUM OXIDE 400 MG TABLET PO SCH ×2 (10:46→17:36)
[2017-11-19] MEDS: LANSOPRAZOLE 15 MG TAB.RAP.DR PO SCH (10:46)
[2017-11-19] MEDS: DOCUSATE SODIUM 100 MG CAPSULE PO SCH ×2 (10:47→23:39)
[2017-11-19] MEDS: APIXABAN 2.5 MG TABLET PO SCH ×2 (10:48→23:39)
[2017-11-19] MEDS: CEFTRIAXONE 2 GM/D5W RTU 2 GM/50 ML RTUPB IV SCH (10:48)
[2017-11-19] MEDS: SITAGLIPTIN PHOSPHATE 25 MG TABLET PO SCH (10:48)
[2017-11-19] MEDS: NYSTATIN TOPICAL POWDER 15 GM TP SCH ×2 (10:49→17:35)
[2017-11-19] MEDS: INSULIN LISPRO 100 UNIT/ML 3 ML VIAL SUBCUT PRN ×2 (12:50→17:40)
[2017-11-19 13:05] LABS: ARTERIAL BLOOD BASE EXCESS 0.6 mmol/L; ARTERIAL BLOOD FIO2 1LPM; ARTERIAL BLOOD H2CO3 1.26 mmol/L (1.05-1.35); ARTERIAL BLOOD HCO3 25.5 mmol/L (20-26); ARTERIAL BLOOD O2 SATURATION 95.9 % (94-98); ARTERIAL BLOOD PO2 80.3 mmHg (80-100); ARTERIAL BLOOD TOTAL CO2 26.8 mmol/L (23-27)
[2017-11-19] MEDS: 1/2 NORMAL SALINE 1,000 ML IV PRN (15:36)
--- NOTE | 2017-11-19 19:38 | PDOC PROGRESS REPORT ---
Subjective Progress Note for:: 11/19/17 Subjective:: improving Reason For Visit: SEPSIS DUE TO UTI Physical Exam Vital Signs: Temp Pulse Resp BP Pulse Ox 97.6 F 62 19 117/75 100 11/19/17 08:00 11/19/17 08:00 11/19/17 06:12 11/19/17 06:12 11/19/17 06:12 Intake & Output 11/18/17 11/19/17 11/20/17 06:59 06:59 06:59 Intake Total 283 2310 200 Output Total 1755 2400 Balance -1472 -90 200 Weight 70.8 kg 69.2 kg General appearance: PRESENT: no acute distress, cooperative, disheveled Head exam: PRESENT: atraumatic, normocephalic Eye exam: PRESENT: conjunctiva pale, EOMI. ABSENT: nystagmus Mouth exam: PRESENT: moist, neck supple, tongue midline Neck exam: ABSENT: carotid bruit, JVD, lymphadenopathy, thyromegaly, tracheal deviation, tracheostomy Respiratory exam: PRESENT: decreased breath sounds, prolonged expiratory phas, rales, rhonchi, unlabored. ABSENT: retraction, stridor Cardiovascular exam: PRESENT: RRR, +S1, +S2, tachycardia Pulses: PRESENT: normal radial pulses GI/Abdominal exam: PRESENT: hypoactive bowel sounds, soft Extremities exam: ABSENT: calf tenderness, clubbing, joint swelling Musculoskeletal exam: ABSENT: deformity, dislocation Neurological exam: PRESENT: awake, oriented to person, oriented to place Psychiatric exam: PRESENT: flat affect Skin exam: PRESENT: dry, warm Results Laboratory Results: 11/19/17 03:43 11/19/17 03:43 11/18/17 11/18/17 11/19/17 09:57 16:45 03:43 WBC 9.0 RBC 4.33 L Hgb 11.2 L Hct 34.3 L MCV 79 L MCH 25.9 L MCHC 32.7 RDW 16.1 H Plt Count 183 Seg Neutrophils % 72.1 Lymphocytes % 14.2 Monocytes % 11.1 Eosinophils % 1.9 Basophils % 0.7 Absolute Neutrophils 6.5 Absolute Lymphocytes 1.3 Absolute Monocytes 1.0 Absolute Eosinophils 0.2 Absolute Basophils 0.1 Sodium 151.4 H Potassium 3.5 L Chloride 110 H Carbon Dioxide 29 Anion Gap 12 BUN 42 H Creatinine 1.85 H Est GFR ( Amer) 42 L Est GFR (Non-Af Amer) 35 L Glucose 151 H Calcium 9.8 Phosphorus Magnesium 1.6 Total Bilirubin 0.5 AST 15 L ALT 14 L Alkaline Phosphatase 123 Total Protein 6.6 Albumin 3.1 L Fluid Type PLEURAL Fluid Source Fluid Color YELLOW Fluid Appearance SLIGHTLY HAZY Fluid Viscosity LIQUID Fluid WBC 183 Fluid RBC 700 11/19/17 03:43 WBC RBC Hgb Hct MCV MCH MCHC RDW Plt Count Seg Neutrophils % Lymphocytes % Monocytes % Eosinophils % Basophils % Absolute Neutrophils Absolute Lymphocytes Absolute Monocytes Absolute Eosinophils Absolute Basophils Sodium 147.9 H Potassium 3.0 L* Chloride 109 H Carbon Dioxide 29 Anion Gap 10 BUN 41 H Creatinine 1.68 H Est GFR ( Amer) 47 L Est GFR (Non-Af Amer) 39 L Glucose 148 H Calcium 9.4 Phosphorus 2.6 Magnesium 1.5 L Total Bilirubin 0.5 AST 14 L ALT 14 L Alkaline Phosphatase 102 Total Protein 5.8 L Albumin 2.7 L Fluid Type Fluid Source Fluid Color Fluid Appearance Fluid Viscosity Fluid WBC Fluid RBC 11/16/17 11/18/17 11/18/17 12:46 04:02 09:25 Creatine Kinase < 20 L CK-MB (CK-2) Troponin I NT-Pro-B Natriuret Pep 57817 H 38892 H 11/18/17 11/19/17 09:25 03:43 Creatine Kinase CK-MB (CK-2) 1.71 Troponin I 0.013 NT-Pro-B Natriuret Pep 15284 H Impressions: Gastrostomy Tube Placement 11/17/17 00:00 IMPRESSION: Nasogastric catheter tip overlies the body of the stomach with side port below the GE junction. Head CT 11/17/17 00:00 IMPRESSION: No acute intracranial findings. EVIDENCE OF ACUTE STROKE: NO. Thoracentesis Ultrasound 11/18/17 13:09 IMPRESSION: SUCCESSFUL THORACENTESIS USING ULTRASOUND GUIDANCE. Chest X-Ray 11/19/17 06:00 IMPRESSION: Persistent bilateral lower lobe consolidation and trace bilateral pleural effusions. Assessment & Plan - Diagnosis (1) Atrial fibrillation Qualifiers: Atrial fibrillation type: chronic Qualified Code(s): I48.2 - Chronic atrial fibrillation Is this a current diagnosis for this admission?: Yes Plan: tachycardia but rate decreased over last 24h (2) Hypertension Qualifiers: Hypertension type: essential hypertension Qualified Code(s): I10 - Essential (primary) hypertension Is this a current diagnosis for this admission?: Yes Plan: stable (3) Altered mental status Qualifiers: Altered mental status type: delirium Qualified Code(s): R41.0 - Disorientation, unspecified Is this a current diagnosis for this admission?: Yes Plan: improved level of consciousness (4) Obstructed suprapubic catheter Qualifiers: Encounter type: initial encounter Qualified Code(s): T83.090A - Other mechanical complication of cystostomy catheter, initial encounter Is this a current diagnosis for this admission?: Yes (5) Bilateral pleural effusion Is this a current diagnosis for this admission?: Yes - Time Total Critical Time (Minutes): 40
[2017-11-20 04:16] LABS: ABSOLUTE BASOPHILS # (AUTO) 0.1 10^3/uL (0.0-0.2); ABSOLUTE EOSINOPHILS # (AUTO) 0.3 10^3/uL (0.0-0.6); ABSOLUTE LYMPHOCYTES (AUTO) 1.2 10^3/uL (0.5-4.7); ABSOLUTE MONOCYTES (AUTO) 0.9 10^3/uL (0.1-1.4); ABSOLUTE NEUT (AUTO) 5.8 10^3/uL (1.7-8.2); BASOPHILS % (AUTO) 0.7 % (0-2); EOSINOPHILS % (AUTO) 3.2 % (0-6); HEMATOCRIT 34.2 % (37.9-51.0); HEMOGLOBIN 11.2 g/dL (13.5-17.0); LYMPHOCYTES % (AUTO) 14.9 % (13-45); MEAN CORPUSCULAR HEMOGLOBIN 26.4 pg (27.0-33.4); MEAN CORPUSCULAR HGB CONC 32.9 g/dL (32.0-36.0); MEAN CORPUSCULAR VOLUME 80 fl (80-97); MONOCYTES % (AUTO) 10.8 % (3-13); PLATELET COUNT 173 10^3/uL (150-450); RED BLOOD COUNT 4.26 10^6/uL (4.35-5.55); SEGMENTED NEUTROPHILS % (AUTO) 70.4 % (42-78); TOTAL CELLS COUNTED % (AUTO) 100 %; WHITE BLOOD COUNT 8.2 10^3/uL (4.0-10.5)
[2017-11-20 04:38] LABS: ANION GAP 11 (5-19); BLOOD UREA NITROGEN 39 mg/dL (7-20); CALCIUM 9.4 mg/dL (8.4-10.2); CARBON DIOXIDE 29 mmol/L (22-30); CHLORIDE 107 mmol/L (98-107); GLUCOSE 105 mg/dL (75-110); SODIUM 147.1 mmol/L (137-145)
[2017-11-20] MEDS: AMIODARONE HCL 200 MG TABLET PO SCH (08:22)
[2017-11-20] MEDS: METOPROLOL SUCCINATE 25 MG TAB.SR.24H PO SCH (08:23)
[2017-11-20] MEDS: FUROSEMIDE 40 MG TABLET PO SCH (08:23)
[2017-11-20] MEDS: CITALOPRAM HYDROBROMIDE 20 MG TABLET PO SCH (08:23)
[2017-11-20] MEDS: FOLIC ACID/VITAMIN B COMP W-C CAPSULE PO SCH (08:23)
[2017-11-20] MEDS: INSULIN GLARGINE,HUM.REC.ANLOG 300 UNIT/3 ML INSULN.PEN SUBCUT SCH (08:25)
[2017-11-20] MEDS: MAGNESIUM OXIDE 400 MG TABLET PO SCH ×2 (09:10→17:02)
[2017-11-20] MEDS: POTASSIUM CHLORIDE 10 MEQ CAPSULE.ER PO SCH ×2 (09:11→22:12)
[2017-11-20] MEDS: DOCUSATE SODIUM 100 MG CAPSULE PO SCH ×2 (09:11→22:12)
[2017-11-20] MEDS: SITAGLIPTIN PHOSPHATE 25 MG TABLET PO SCH (09:11)
[2017-11-20] MEDS: LANSOPRAZOLE 15 MG TAB.RAP.DR PO SCH (09:11)
[2017-11-20] MEDS: APIXABAN 2.5 MG TABLET PO SCH ×2 (09:12→22:10)
[2017-11-20 09:23] LABS: ARTERIAL BLOOD BASE EXCESS 0.4 mmol/L; ARTERIAL BLOOD H2CO3 1.31 mmol/L (1.05-1.35); ARTERIAL BLOOD HCO3 25.6 mmol/L (20-26); ARTERIAL BLOOD O2 SATURATION 92.1 % (94-98); ARTERIAL BLOOD PCO2 43.6 mmHg (35-45); ARTERIAL BLOOD PH 7.39 (7.35-7.45); ARTERIAL BLOOD PO2 63.9 mmHg (80-100)
[2017-11-20 09:28] LABS: ARTERIAL BLOOD FIO2 1 LPM
[2017-11-20 09:31] LABS: GLUCOSE BODY FLUID 133 mg/dL (.); LDH BODY FLUID 63 IU/L (.)
[2017-11-20] MEDS: INSULIN LISPRO 100 UNIT/ML 3 ML VIAL SUBCUT PRN ×2 (13:15→16:59)
[2017-11-20] MEDS ORDERED: ACETYLCYSTEINE 20% SOLN 800 MG/4 ML VIAL.NEB NEB ONE (13:30)
[2017-11-20] MEDS: IPRATROPIUM/ALBUTEROL 0.5-2.5 MG/3 ML AMPUL NEB PRN ×2 (14:05→21:05)
--- NOTE | 2017-11-20 15:28 | PDOC PROGRESS REPORT ---
Subjective Progress Note for:: 11/20/17 Subjective:: improving Reason For Visit: SEPSIS DUE TO UTI Physical Exam Vital Signs: Temp Pulse Resp BP Pulse Ox 98 F 60 21 H 159/81 H 98 11/20/17 08:00 11/20/17 07:54 11/20/17 10:00 11/20/17 08:00 11/20/17 10:00 Intake & Output 11/19/17 11/20/17 11/21/17 06:59 06:59 06:59 Intake Total 2310 2377 Output Total 2400 1500 175 Balance -90 877 -175 Weight 69.2 kg 69.1 kg General appearance: PRESENT: no acute distress, cooperative, disheveled Head exam: PRESENT: atraumatic, normocephalic Eye exam: PRESENT: conjunctiva pale, EOMI Mouth exam: PRESENT: moist, neck supple, tongue midline Neck exam: PRESENT: tracheal deviation. ABSENT: carotid bruit, JVD, lymphadenopathy, thyromegaly, tracheostomy Respiratory exam: PRESENT: crackles, decreased breath sounds, prolonged expiratory phas, rhonchi, unlabored. ABSENT: stridor Cardiovascular exam: PRESENT: RRR, +S1, +S2 Pulses: PRESENT: normal radial pulses GI/Abdominal exam: PRESENT: hypoactive bowel sounds, soft, other - PEG tube Gentrourinary exam: PRESENT: indwelling catheter Extremities exam: ABSENT: calf tenderness, clubbing, joint swelling Musculoskeletal exam: ABSENT: deformity Neurological exam: PRESENT: awake, oriented to person, oriented to time. ABSENT : oriented to place Psychiatric exam: PRESENT: flat affect Skin exam: PRESENT: dry, warm Results Laboratory Results: 11/20/17 03:45 11/20/17 03:45 11/18/17 11/18/17 11/18/17 09:57 09:57 09:57 WBC RBC Hgb Hct MCV MCH MCHC RDW Plt Count Seg Neutrophils % Lymphocytes % Monocytes % Eosinophils % Basophils % Absolute Neutrophils Absolute Lymphocytes Absolute Monocytes Absolute Eosinophils Absolute Basophils Carbonic Acid HCO3/H2CO3 Ratio ABG pH ABG pCO2 ABG pO2 ABG HCO3 ABG O2 Saturation ABG Base Excess FiO2 Sodium Potassium Chloride Carbon Dioxide Anion Gap BUN Creatinine Est GFR ( Amer) Est GFR (Non-Af Amer) Glucose Calcium Magnesium Fluid Glucose 133 Fluid Total Protein 2.8 Fluid LDH 63 Fluid Amylase 23 0711/19/17 11/20/17 11:28 12:40 03:45 WBC 8.2 RBC 4.26 L Hgb 11.2 L Hct 34.2 L MCV 80 MCH 26.4 L MCHC 32.9 RDW 16.0 H Plt Count 173 Seg Neutrophils % 70.4 Lymphocytes % 14.9 Monocytes % 10.8 Eosinophils % 3.2 Basophils % 0.7 Absolute Neutrophils 5.8 Absolute Lymphocytes 1.2 Absolute Monocytes 0.9 Absolute Eosinophils 0.3 Absolute Basophils 0.1 Carbonic Acid Cancelled 1.26 HCO3/H2CO3 Ratio Cancelled 20:1 ABG pH Cancelled 7.40 ABG pCO2 Cancelled 42.0 ABG pO2 Cancelled 80.3 ABG HCO3 Cancelled 25.5 ABG O2 Saturation Cancelled 95.9 ABG Base Excess Cancelled 0.6 FiO2 Cancelled 1LPM Sodium Potassium Chloride Carbon Dioxide Anion Gap BUN Creatinine Est GFR ( Amer) Est GFR (Non-Af Amer) Glucose Calcium Magnesium Fluid Glucose Fluid Total Protein Fluid LDH Fluid Amylase 11/20/17 11/20/17 11/20/17 03:45 03:45 09:00 WBC RBC Hgb Hct MCV MCH MCHC RDW Plt Count Seg Neutrophils % Lymphocytes % Monocytes % Eosinophils % Basophils % Absolute Neutrophils Absolute Lymphocytes Absolute Monocytes Absolute Eosinophils Absolute Basophils Carbonic Acid 1.31 HCO3/H2CO3 Ratio 19:1 ABG pH 7.39 ABG pCO2 43.6 ABG pO2 63.9 L ABG HCO3 25.6 ABG O2 Saturation 92.1 L ABG Base Excess 0.4 FiO2 1 LPM Sodium 147.1 H Potassium 4.0 Chloride 107 Carbon Dioxide 29 Anion Gap 11 BUN 39 H Creatinine 1.76 H Est GFR ( Amer) 45 L Est GFR (Non-Af Amer) 37 L Glucose 105 Calcium 9.4 Magnesium 1.5 L Fluid Glucose Fluid Total Protein Fluid LDH Fluid Amylase 11/16/17 11/18/17 11/18/17 12:46 04:02 09:25 Creatine Kinase < 20 L CK-MB (CK-2) Troponin I NT-Pro-B Natriuret Pep 43911 H 97317 H 11/18/17 11/19/17 09:25 03:43 Creatine Kinase CK-MB (CK-2) 1.71 Troponin I 0.013 NT-Pro-B Natriuret Pep 09912 H Impressions: Gastrostomy Tube Placement 11/17/17 00:00 IMPRESSION: Nasogastric catheter tip overlies the body of the stomach with side port below the GE junction. Head CT 11/17/17 00:00 IMPRESSION: No acute intracranial findings. EVIDENCE OF ACUTE STROKE: NO. Thoracentesis Ultrasound 11/18/17 13:09 IMPRESSION: SUCCESSFUL THORACENTESIS USING ULTRASOUND GUIDANCE. Chest X-Ray 11/19/17 06:00 IMPRESSION: Persistent bilateral lower lobe consolidation and trace bilateral pleural effusions. Assessment & Plan - Diagnosis (1) Atrial fibrillation Qualifiers: Atrial fibrillation type: chronic Qualified Code(s): I48.2 - Chronic atrial fibrillation Is this a current diagnosis for this admission?: Yes Plan: tachycardia but rate decreased over last 24h (2) Hypertension Qualifiers: Hypertension type: essential hypertension Qualified Code(s): I10 - Essential (primary) hypertension Is this a current diagnosis for this admission?: Yes Plan: stable (3) Altered mental status Qualifiers: Altered mental status type: delirium Qualified Code(s): R41.0 - Disorientation, unspecified Is this a current diagnosis for this admission?: Yes Plan: improved level of consciousness (4) Obstructed suprapubic catheter Qualifiers: Encounter type: initial encounter Qualified Code(s): T83.090A - Other mechanical complication of cystostomy catheter, initial encounter Is this a current diagnosis for this admission?: Yes (5) Bilateral pleural effusion Is this a current diagnosis for this admission?: Yes - Time Total Critical Time (Minutes): 40
[2017-11-20] MEDS: ACETYLCYSTEINE 20% SOLN 800 MG/4 ML VIAL.NEB NEB SCH (21:06)
[2017-11-21 04:08] LABS: HEMATOCRIT 34.4 % (37.9-51.0); HEMOGLOBIN 11.4 g/dL (13.5-17.0); MEAN CORPUSCULAR HEMOGLOBIN 26.3 pg (27.0-33.4); MEAN CORPUSCULAR HGB CONC 33.1 g/dL (32.0-36.0); MEAN CORPUSCULAR VOLUME 79 fl (80-97); PLATELET COUNT 165 10^3/uL (150-450); RED BLOOD COUNT 4.33 10^6/uL (4.35-5.55); RED CELL DISTRIBUTION WIDTH 15.8 % (11.5-14.0)
[2017-11-21 04:11] LABS: WHITE BLOOD COUNT 7.4 10^3/uL (4.0-10.5)
[2017-11-21 04:26] LABS: ANION GAP 9 (5-19); BLOOD UREA NITROGEN 38 mg/dL (7-20); CALCIUM 9.5 mg/dL (8.4-10.2); CARBON DIOXIDE 31 mmol/L (22-30); CHLORIDE 106 mmol/L (98-107); GLUCOSE 144 mg/dL (75-110); POTASSIUM 4.1 mmol/L (3.6-5.0); SODIUM 145.5 mmol/L (137-145)
[2017-11-21 04:59] LABS: ABSOLUTE LYMPHOCYTES# (MANUAL) 1.7 10^3/uL (0.5-4.7); ABSOLUTE MONOCYTES # (MANUAL) 0.5 10^3/uL (0.1-1.4); ABSOLUTE NEUTROPHILS# (MANUAL) 5.1 10^3/uL (1.7-8.2); BASOPHILS % (MANUAL) 1 % (0-2); EOSINOPHILS % (MANUAL) 0 % (0-6); LYMPHOCYTES % (MANUAL) 23 % (13-45); MONOCYTES % (MANUAL) 7 % (3-13); SEGMENTED NEUTROPHILS % (MAN) 69 % (42-78); TOTAL CELLS COUNTED 100
[2017-11-21 05:00] LABS: PLATELET COMMENT ADEQUATE; RBC MORPHOLOGY COMMENT NORMO-CYTIC/CHROMIC
--- NOTE | 2017-11-21 07:10 | RADIOLOGY REPORT (SQ) ---
EXAM DESCRIPTION: CHEST SINGLE VIEW COMPLETED DATE/TIME: 11/21/2017 6:54 am REASON FOR STUDY: pna COMPARISON: 11/19/2017 EXAM PARAMETERS: NUMBER OF VIEWS: One view. TECHNIQUE: Single frontal radiographic view of the chest acquired. RADIATION DOSE: NA LIMITATIONS: None. FINDINGS: LUNGS AND PLEURA: Bilateral pleural effusions right greater than left. Opacities at the b ases right greater than left. Minimally improved. MEDIASTINUM AND HILAR STRUCTURES: No masses. Contour normal. HEART AND VASCULAR STRUCTURES: Heart enlarged. No overt failure. BONES: No acute findings. HARDWARE: Pacemaker. OTHER: No other significant finding. IMPRESSION: Bilateral effusions and opacities right greater than left with minimal improvement. TECHNICAL DOCUMENTATION: JOB ID: [id number] [employer]- All Rights Reserved Reading location - IP/workstation name: [email or web address]
[2017-11-21] MEDS: ACETYLCYSTEINE 20% SOLN 800 MG/4 ML VIAL.NEB NEB SCH ×2 (08:04→20:21)
[2017-11-21] MEDS: IPRATROPIUM/ALBUTEROL 0.5-2.5 MG/3 ML AMPUL NEB PRN ×2 (08:04→20:21)
[2017-11-21] MEDS: MAGNESIUM OXIDE 400 MG TABLET PO SCH ×2 (08:12→17:00)
[2017-11-21] MEDS: FOLIC ACID/VITAMIN B COMP W-C CAPSULE PO SCH (08:12)
[2017-11-21] MEDS: CITALOPRAM HYDROBROMIDE 20 MG TABLET PO SCH (08:12)
[2017-11-21] MEDS: AMIODARONE HCL 200 MG TABLET PO SCH (08:12)
[2017-11-21] MEDS: LANSOPRAZOLE 15 MG TAB.RAP.DR PO SCH (08:13)
[2017-11-21] MEDS: METOPROLOL SUCCINATE 25 MG TAB.SR.24H PO SCH (08:13)
[2017-11-21] MEDS: INSULIN GLARGINE,HUM.REC.ANLOG 300 UNIT/3 ML INSULN.PEN SUBCUT SCH (08:14)
[2017-11-21] MEDS: FUROSEMIDE 40 MG TABLET PO SCH (08:14)
[2017-11-21] MEDS: POTASSIUM CHLORIDE 10 MEQ CAPSULE.ER PO SCH ×2 (08:16→22:00)
[2017-11-21] MEDS: DOCUSATE SODIUM 100 MG CAPSULE PO SCH ×2 (08:19→22:00)
[2017-11-21] MEDS: SITAGLIPTIN PHOSPHATE 25 MG TABLET PO SCH (10:39)
[2017-11-21] MEDS: APIXABAN 2.5 MG TABLET PO SCH ×2 (10:39→22:00)
--- NOTE | 2017-11-21 20:27 | PDOC PROGRESS REPORT ---
Subjective Progress Note for:: 11/21/17 Subjective:: Patient was seen by the bedside. The pleural fluid analysis is consistent with transudate, he has significant proteinuria there is also associated hypoalbuminemia, urine protein creatinine ratio is ordered to rule out nephrotic syndrome. The pleural fluid cytology was negative for cancer cells though the pleural fluid cytology have a low yield for diagnosis of cancer a negative cytology by itself does not rule out a malignancy but the fact that the pleural fluid is more consistent with a transudate makes malignancy unlikely as a potential etiology of the pleural fluid, patient is no longer requiring noninvasive positive pressure ventilation, he is only on nasal cannula , he would be downgraded out of ICU to telemetry floor. Reason For Visit: SEPSIS DUE TO UTI Physical Exam Vital Signs: Temp Pulse Resp BP Pulse Ox 98.2 F 96 25 H 157/91 H 98 11/21/17 19:37 11/21/17 16:00 11/21/17 18:01 11/21/17 18:01 11/21/17 18:01 Intake & Output 11/20/17 11/21/17 11/22/17 06:59 06:59 06:59 Intake Total 2377 1085 300 Output Total 1500 2200 1670 Balance 877 -1115 -1370 Weight 69.1 kg 70 kg General appearance: PRESENT: no acute distress Eye exam: PRESENT: PERRLA Respiratory exam: PRESENT: clear to auscultation denita Cardiovascular exam: PRESENT: +S1, +S2 GI/Abdominal exam: PRESENT: soft Neurological exam: PRESENT: alert Results Laboratory Results: 11/21/17 03:55 11/21/17 03:55 11/21/17 11/21/17 03:55 03:55 WBC 7.4 RBC 4.33 L Hgb 11.4 L Hct 34.4 L MCV 79 L MCH 26.3 L MCHC 33.1 RDW 15.8 H Plt Count 165 Seg Neutrophils % Not Reportable Lymphocytes % Not Reportable Monocytes % Not Reportable Eosinophils % Not Reportable Basophils % Not Reportable Absolute Neutrophils Not Reportable Absolute Lymphocytes Not Reportable Absolute Monocytes Not Reportable Absolute Eosinophils Not Reportable Absolute Basophils Not Reportable Sodium 145.5 H Potassium 4.1 Chloride 106 Carbon Dioxide 31 H Anion Gap 9 BUN 38 H Creatinine 1.82 H Est GFR ( Amer) 43 L Est GFR (Non-Af Amer) 36 L Glucose 144 H Calcium 9.5 Magnesium 1.7 11/16/17 11/18/17 11/18/17 12:46 04:02 09:25 Creatine Kinase < 20 L CK-MB (CK-2) Troponin I NT-Pro-B Natriuret Pep 08584 H 54424 H 11/18/17 11/19/17 09:25 03:43 Creatine Kinase CK-MB (CK-2) 1.71 Troponin I 0.013 NT-Pro-B Natriuret Pep 11319 H Impressions: Gastrostomy Tube Placement 11/17/17 00:00 IMPRESSION: Nasogastric catheter tip overlies the body of the stomach with side port below the GE junction. Head CT 11/17/17 00:00 IMPRESSION: No acute intracranial findings. EVIDENCE OF ACUTE STROKE: NO. Thoracentesis Ultrasound 11/18/17 13:09 IMPRESSION: SUCCESSFUL THORACENTESIS USING ULTRASOUND GUIDANCE. Chest X-Ray 11/21/17 06:00 IMPRESSION: Bilateral effusions and opacities right greater than left with minimal improvement. Assessment & Plan - Diagnosis (1) Catheter-associated urinary tract infection Qualifiers: Indwelling urinary catheter type: cystostomy catheter Encounter type: initial encounter Qualified Code(s): T83.510A - Infection and inflammatory reaction due to cystostomy catheter, initial encounter; N39.0 - Urinary tract infection, site not specified; N39.0 - Urinary tract infection, site not specified Is this a current diagnosis for this admission?: Yes (2) Obstructed suprapubic catheter Qualifiers: Encounter type: initial encounter Qualified Code(s): T83.090A - Other mechanical complication of cystostomy catheter, initial encounter Is this a current diagnosis for this admission?: Yes (3) Sepsis Qualifiers: Sepsis type: sepsis due to unspecified organism Qualified Code(s): A41.9 - Sepsis, unspecified organism Is this a current diagnosis for this admission?: Yes (4) Acute kidney injury Is this a current diagnosis for this admission?: Yes (5) Respiratory failure with hypercapnia Qualifiers: Chronicity: acute Qualified Code(s): J96.02 - Acute respiratory failure with hypercapnia Is this a current diagnosis for this admission?: Yes (6) Pleural effusion Is this a current diagnosis for this admission?: Yes (7) Metabolic encephalopathy Is this a current diagnosis for this admission?: Yes (8) Obtundation Is this a current diagnosis for this admission?: Yes - Plan Summary Plan Summary: Continue present treatment transferred to telemetry floor
[2017-11-22 00:07] LABS: UR PRO/CREAT RATIO RESULT 2.6 mg/mg (0.0-0.2); URINE CREATININE 28.7 mg/dL (22-328); URINE PROTEIN 75.4 mg/dL (<12)
[2017-11-22 04:17] LABS: ANION GAP 8 (5-19); BLOOD UREA NITROGEN 39 mg/dL (7-20); CALCIUM 9.6 mg/dL (8.4-10.2); CARBON DIOXIDE 33 mmol/L (22-30); CHLORIDE 108 mmol/L (98-107); GLUCOSE 112 mg/dL (75-110); POTASSIUM 4.1 mmol/L (3.6-5.0); SODIUM 148.9 mmol/L (137-145)
[2017-11-22] MEDS: ACETYLCYSTEINE 20% SOLN 800 MG/4 ML VIAL.NEB NEB SCH ×2 (07:50→20:14)
[2017-11-22] MEDS: IPRATROPIUM/ALBUTEROL 0.5-2.5 MG/3 ML AMPUL NEB PRN ×2 (07:50→20:14)
[2017-11-22] MEDS: CITALOPRAM HYDROBROMIDE 20 MG TABLET PO SCH (08:26)
[2017-11-22] MEDS: AMIODARONE HCL 200 MG TABLET PO SCH (08:26)
[2017-11-22] MEDS: FUROSEMIDE 40 MG TABLET PO SCH (08:27)
[2017-11-22] MEDS: METOPROLOL SUCCINATE 25 MG TAB.SR.24H PO SCH (08:28)
[2017-11-22] MEDS: FOLIC ACID/VITAMIN B COMP W-C CAPSULE PO SCH (08:29)
[2017-11-22] MEDS: POTASSIUM CHLORIDE 10 MEQ CAPSULE.ER PO SCH ×2 (08:29→21:32)
[2017-11-22] MEDS: DOCUSATE SODIUM 100 MG CAPSULE PO SCH ×2 (08:29→21:32)
[2017-11-22] MEDS: LANSOPRAZOLE 15 MG TAB.RAP.DR PO SCH (08:29)
[2017-11-22] MEDS: SITAGLIPTIN PHOSPHATE 25 MG TABLET PO SCH (08:32)
[2017-11-22] MEDS: APIXABAN 2.5 MG TABLET PO SCH ×2 (08:33→21:32)
[2017-11-22] MEDS: INSULIN GLARGINE,HUM.REC.ANLOG 300 UNIT/3 ML INSULN.PEN SUBCUT SCH (08:39)
--- NOTE | 2017-11-22 11:27 | PDOC PROGRESS REPORT ---
Subjective Progress Note for:: 11/21/17 Subjective:: improving Reason For Visit: SEPSIS DUE TO UTI Physical Exam Vital Signs: Temp Pulse Resp BP Pulse Ox 98.3 F 92 23 H 126/89 H 94 11/21/17 07:44 11/21/17 07:44 11/21/17 07:44 11/21/17 07:44 11/21/17 07:44 Intake & Output 11/20/17 11/21/17 11/22/17 06:59 06:59 06:59 Intake Total 2377 1085 Output Total 1500 2200 100 Balance 877 -1115 -100 Weight 69.1 kg 70 kg General appearance: PRESENT: no acute distress, cooperative, disheveled Head exam: PRESENT: atraumatic, normocephalic Eye exam: PRESENT: conjunctiva pale, EOMI. ABSENT: nystagmus Mouth exam: PRESENT: dry mucosa, neck supple, tongue midline Neck exam: ABSENT: carotid bruit, JVD, lymphadenopathy, thyromegaly, tracheal deviation, tracheostomy Respiratory exam: PRESENT: decreased breath sounds, prolonged expiratory phas, rhonchi, unlabored. ABSENT: retraction, stridor Cardiovascular exam: PRESENT: RRR, +S1, +S2, tachycardia Pulses: PRESENT: normal radial pulses GI/Abdominal exam: PRESENT: soft, tenderness, other - PEG tube Gentrourinary exam: PRESENT: indwelling catheter Extremities exam: ABSENT: calf tenderness, clubbing, joint swelling Musculoskeletal exam: ABSENT: deformity, dislocation Neurological exam: PRESENT: awake, oriented to person, oriented to place. ABSENT: oriented to time, oriented to situation Psychiatric exam: PRESENT: flat affect Skin exam: PRESENT: dry, warm Results Laboratory Results: 11/21/17 03:55 11/21/17 03:55 11/18/17 11/18/17 11/18/17 09:57 09:57 09:57 WBC RBC Hgb Hct MCV MCH MCHC RDW Plt Count Seg Neutrophils % Lymphocytes % Monocytes % Eosinophils % Basophils % Absolute Neutrophils Absolute Lymphocytes Absolute Monocytes Absolute Eosinophils Absolute Basophils Carbonic Acid HCO3/H2CO3 Ratio ABG pH ABG pCO2 ABG pO2 ABG HCO3 ABG O2 Saturation ABG Base Excess FiO2 Sodium Potassium Chloride Carbon Dioxide Anion Gap BUN Creatinine Est GFR ( Amer) Est GFR (Non-Af Amer) Glucose Calcium Magnesium Fluid Glucose 133 Fluid Total Protein 2.8 Fluid LDH 63 Fluid Amylase 23 07/08/18 07/09/18 07/09/18 09:00 03:55 03:55 WBC 7.4 RBC 4.33 L Hgb 11.4 L Hct 34.4 L MCV 79 L MCH 26.3 L MCHC 33.1 RDW 15.8 H Plt Count 165 Seg Neutrophils % Not Reportable Lymphocytes % Not Reportable Monocytes % Not Reportable Eosinophils % Not Reportable Basophils % Not Reportable Absolute Neutrophils Not Reportable Absolute Lymphocytes Not Reportable Absolute Monocytes Not Reportable Absolute Eosinophils Not Reportable Absolute Basophils Not Reportable Carbonic Acid 1.31 HCO3/H2CO3 Ratio 19:1 ABG pH 7.39 ABG pCO2 43.6 ABG pO2 63.9 L ABG HCO3 25.6 ABG O2 Saturation 92.1 L ABG Base Excess 0.4 FiO2 1 LPM Sodium 145.5 H Potassium 4.1 Chloride 106 Carbon Dioxide 31 H Anion Gap 9 BUN 38 H Creatinine 1.82 H Est GFR ( Amer) 43 L Est GFR (Non-Af Amer) 36 L Glucose 144 H Calcium 9.5 Magnesium 1.7 Fluid Glucose Fluid Total Protein Fluid LDH Fluid Amylase 11/16/17 11/18/17 11/18/17 12:46 04:02 09:25 Creatine Kinase < 20 L CK-MB (CK-2) Troponin I NT-Pro-B Natriuret Pep 92964 H 90560 H 11/18/17 11/19/17 09:25 03:43 Creatine Kinase CK-MB (CK-2) 1.71 Troponin I 0.013 NT-Pro-B Natriuret Pep 85057 H Impressions: Gastrostomy Tube Placement 11/17/17 00:00 IMPRESSION: Nasogastric catheter tip overlies the body of the stomach with side port below the GE junction. Head CT 11/17/17 00:00 IMPRESSION: No acute intracranial findings. EVIDENCE OF ACUTE STROKE: NO. Thoracentesis Ultrasound 11/18/17 13:09 IMPRESSION: SUCCESSFUL THORACENTESIS USING ULTRASOUND GUIDANCE. Chest X-Ray 11/21/17 06:00 IMPRESSION: Bilateral effusions and opacities right greater than left with minimal improvement. Assessment & Plan - Diagnosis (1) Atrial fibrillation Qualifiers: Atrial fibrillation type: chronic Qualified Code(s): I48.2 - Chronic atrial fibrillation Is this a current diagnosis for this admission?: Yes Plan: tachycardia but rate decreased over last 24h (2) Hypertension Qualifiers: Hypertension type: essential hypertension Qualified Code(s): I10 - Essential (primary) hypertension Is this a current diagnosis for this admission?: Yes Plan: stable (3) Altered mental status Qualifiers: Altered mental status type: delirium Qualified Code(s): R41.0 - Disorientation, unspecified Is this a current diagnosis for this admission?: Yes Plan: improved level of consciousness (4) Obstructed suprapubic catheter Qualifiers: Encounter type: initial encounter Qualified Code(s): T83.090A - Other mechanical complication of cystostomy catheter, initial encounter Is this a current diagnosis for this admission?: Yes Plan: 11/11/17 21:41 Urine Culture - Final Suprapubic Catheter Proteus Mirabilis Staphylococcus Aureus Enterococcus Faecalis(Group D) (5) Bilateral pleural effusion Is this a current diagnosis for this admission?: Yes Plan: s/p thoracentesis - Time Total Critical Time (Minutes): 40
--- NOTE | 2017-11-22 11:29 | PDOC PROGRESS REPORT ---
Subjective Progress Note for:: 11/22/17 Subjective:: improving Reason For Visit: SEPSIS DUE TO UTI Physical Exam Vital Signs: Temp Pulse Resp BP Pulse Ox 97.7 F 90 18 138/93 H 96 11/22/17 07:33 11/21/17 20:20 11/22/17 05:00 11/22/17 04:02 11/22/17 05:00 Intake & Output 11/21/17 11/22/17 11/23/17 06:59 06:59 06:59 Intake Total 1085 300 Output Total 2200 7155 Balance -1115 -2092 Weight 70 kg 68.4 kg General appearance: PRESENT: no acute distress, disheveled Head exam: PRESENT: atraumatic, normocephalic Eye exam: PRESENT: conjunctiva pale, EOMI. ABSENT: nystagmus Mouth exam: PRESENT: dry mucosa, neck supple, tongue midline Neck exam: ABSENT: carotid bruit, JVD, lymphadenopathy, thyromegaly, tracheal deviation, tracheostomy Respiratory exam: PRESENT: decreased breath sounds, prolonged expiratory phas, rales, rhonchi, unlabored. ABSENT: retraction, stridor Cardiovascular exam: PRESENT: irregular rhythm Pulses: PRESENT: normal radial pulses GI/Abdominal exam: PRESENT: soft, tenderness, other - PEG Extremities exam: ABSENT: calf tenderness, clubbing, joint swelling Musculoskeletal exam: ABSENT: deformity, dislocation Neurological exam: PRESENT: awake, oriented to person. ABSENT: oriented to place, oriented to time, oriented to situation Psychiatric exam: PRESENT: flat affect Skin exam: PRESENT: dry, warm Results Laboratory Results: 11/21/17 03:55 11/22/17 03:51 11/22/17 03:51 Sodium 148.9 H Potassium 4.1 Chloride 108 H Carbon Dioxide 33 H Anion Gap 8 BUN 39 H Creatinine 1.75 H Est GFR ( Amer) 45 L Est GFR (Non-Af Amer) 37 L Glucose 112 H Calcium 9.6 Magnesium 2.1 11/16/17 11/18/17 11/18/17 12:46 04:02 09:25 Creatine Kinase < 20 L CK-MB (CK-2) Troponin I NT-Pro-B Natriuret Pep 72404 H 37875 H 11/18/17 11/19/17 09:25 03:43 Creatine Kinase CK-MB (CK-2) 1.71 Troponin I 0.013 NT-Pro-B Natriuret Pep 49463 H Impressions: Gastrostomy Tube Placement 11/17/17 00:00 IMPRESSION: Nasogastric catheter tip overlies the body of the stomach with side port below the GE junction. Head CT 11/17/17 00:00 IMPRESSION: No acute intracranial findings. EVIDENCE OF ACUTE STROKE: NO. Thoracentesis Ultrasound 11/18/17 13:09 IMPRESSION: SUCCESSFUL THORACENTESIS USING ULTRASOUND GUIDANCE. Chest X-Ray 11/21/17 06:00 IMPRESSION: Bilateral effusions and opacities right greater than left with minimal improvement. Assessment & Plan - Diagnosis (1) Atrial fibrillation Qualifiers: Atrial fibrillation type: chronic Qualified Code(s): I48.2 - Chronic atrial fibrillation Is this a current diagnosis for this admission?: Yes Plan: tachycardia (2) Hypertension Qualifiers: Hypertension type: essential hypertension Qualified Code(s): I10 - Essential (primary) hypertension Is this a current diagnosis for this admission?: Yes Plan: stable (3) Altered mental status Qualifiers: Altered mental status type: delirium Qualified Code(s): R41.0 - Disorientation, unspecified Is this a current diagnosis for this admission?: Yes Plan: improved level of consciousness (4) Obstructed suprapubic catheter Qualifiers: Encounter type: initial encounter Qualified Code(s): T83.090A - Other mechanical complication of cystostomy catheter, initial encounter Is this a current diagnosis for this admission?: Yes (5) Bilateral pleural effusion Is this a current diagnosis for this admission?: Yes Plan: s/p thoracentesis
[2017-11-22] MEDS: INSULIN LISPRO 100 UNIT/ML 3 ML VIAL SUBCUT PRN (16:54)
--- NOTE | 2017-11-22 21:36 | PDOC PROGRESS REPORT ---
Subjective Progress Note for:: 11/22/17 Subjective:: Patient was seen by the bedside, family in the room updated daughter about patient's condition, he continues to improve slowly but surely Reason For Visit: SEPSIS DUE TO UTI Physical Exam Vital Signs: Temp Pulse Resp BP Pulse Ox 97.7 F 93 17 142/84 H 97 11/22/17 16:00 11/22/17 20:17 11/22/17 20:17 11/22/17 16:02 11/22/17 20:17 Intake & Output 11/21/17 11/22/17 11/23/17 06:59 06:59 06:59 Intake Total 1085 300 318 Output Total 2200 8010 1223 Balance -5945 -4475 -569 Weight 70 kg 68.4 kg General appearance: PRESENT: no acute distress Eye exam: PRESENT: PERRLA Respiratory exam: PRESENT: clear to auscultation denita Cardiovascular exam: PRESENT: +S1, +S2 GI/Abdominal exam: PRESENT: soft Neurological exam: PRESENT: alert Results Laboratory Results: 11/21/17 03:55 11/22/17 03:51 11/22/17 03:51 Sodium 148.9 H Potassium 4.1 Chloride 108 H Carbon Dioxide 33 H Anion Gap 8 BUN 39 H Creatinine 1.75 H Est GFR ( Amer) 45 L Est GFR (Non-Af Amer) 37 L Glucose 112 H Calcium 9.6 Magnesium 2.1 11/18/17 09:57 Pleural Fluid Gram Stain - Final 11/18/17 09:57 Pleural Fluid Body Fluid Culture - Final NO AEROBIC OR ANAEROBIC ORGANISMS RECOVERED 11/16/17 11/18/17 11/18/17 12:46 04:02 09:25 Creatine Kinase < 20 L CK-MB (CK-2) Troponin I NT-Pro-B Natriuret Pep 35445 H 09083 H 11/18/17 11/19/17 09:25 03:43 Creatine Kinase CK-MB (CK-2) 1.71 Troponin I 0.013 NT-Pro-B Natriuret Pep 42969 H Impressions: Gastrostomy Tube Placement 11/17/17 00:00 IMPRESSION: Nasogastric catheter tip overlies the body of the stomach with side port below the GE junction. Head CT 11/17/17 00:00 IMPRESSION: No acute intracranial findings. EVIDENCE OF ACUTE STROKE: NO. Thoracentesis Ultrasound 11/18/17 13:09 IMPRESSION: SUCCESSFUL THORACENTESIS USING ULTRASOUND GUIDANCE. Chest X-Ray 11/21/17 06:00 IMPRESSION: Bilateral effusions and opacities right greater than left with minimal improvement. Assessment & Plan - Diagnosis (1) Catheter-associated urinary tract infection Qualifiers: Indwelling urinary catheter type: cystostomy catheter Encounter type: initial encounter Qualified Code(s): T83.510A - Infection and inflammatory reaction due to cystostomy catheter, initial encounter; N39.0 - Urinary tract infection, site not specified; N39.0 - Urinary tract infection, site not specified Is this a current diagnosis for this admission?: Yes (2) Obstructed suprapubic catheter Qualifiers: Encounter type: initial encounter Qualified Code(s): T83.090A - Other mechanical complication of cystostomy catheter, initial encounter Is this a current diagnosis for this admission?: Yes (3) Sepsis Qualifiers: Sepsis type: sepsis due to unspecified organism Qualified Code(s): A41.9 - Sepsis, unspecified organism Is this a current diagnosis for this admission?: Yes (4) Acute kidney injury Is this a current diagnosis for this admission?: Yes (5) Respiratory failure with hypercapnia Qualifiers: Chronicity: acute Qualified Code(s): J96.02 - Acute respiratory failure with hypercapnia Is this a current diagnosis for this admission?: Yes (6) Pleural effusion Is this a current diagnosis for this admission?: Yes (7) Metabolic encephalopathy Is this a current diagnosis for this admission?: Yes (8) Obtundation Is this a current diagnosis for this admission?: Yes (9) Transudative pleural effusion Is this a current diagnosis for this admission?: Yes (10) Hypoalbuminemia Is this a current diagnosis for this admission?: Yes (11) Proteinuria, unspecified Qualifiers: Proteinuria type: unspecified Qualified Code(s): R80.9 - Proteinuria, unspecified Is this a current diagnosis for this admission?: Yes
[2017-11-23 05:18] LABS: ANION GAP 9 (5-19); BLOOD UREA NITROGEN 43 mg/dL (7-20); CALCIUM 9.5 mg/dL (8.4-10.2); CARBON DIOXIDE 31 mmol/L (22-30); CHLORIDE 106 mmol/L (98-107); GLUCOSE 134 mg/dL (75-110); POTASSIUM 4.4 mmol/L (3.6-5.0); SODIUM 146.3 mmol/L (137-145)
[2017-11-23] MEDS: FOLIC ACID/VITAMIN B COMP W-C CAPSULE PO SCH (08:31)
[2017-11-23] MEDS: FUROSEMIDE 40 MG TABLET PO SCH (08:32)
[2017-11-23] MEDS: METOPROLOL SUCCINATE 25 MG TAB.SR.24H PO SCH (08:32)
[2017-11-23] MEDS: CITALOPRAM HYDROBROMIDE 20 MG TABLET PO SCH (08:32)
[2017-11-23] MEDS: AMIODARONE HCL 200 MG TABLET PO SCH (08:32)
[2017-11-23] MEDS: INSULIN GLARGINE,HUM.REC.ANLOG 300 UNIT/3 ML INSULN.PEN SUBCUT SCH (08:33)
[2017-11-23] MEDS: ACETYLCYSTEINE 20% SOLN 800 MG/4 ML VIAL.NEB NEB SCH ×2 (08:56→19:57)
[2017-11-23] MEDS: IPRATROPIUM/ALBUTEROL 0.5-2.5 MG/3 ML AMPUL NEB PRN ×2 (08:56→19:59)
[2017-11-23] MEDS: LANSOPRAZOLE 15 MG TAB.RAP.DR PO SCH (10:51)
[2017-11-23] MEDS: POTASSIUM CHLORIDE 10 MEQ CAPSULE.ER PO SCH ×2 (10:51→23:43)
[2017-11-23] MEDS: DOCUSATE SODIUM 100 MG CAPSULE PO SCH ×2 (10:51→23:37)
[2017-11-23] MEDS: SITAGLIPTIN PHOSPHATE 25 MG TABLET PO SCH (10:51)
[2017-11-23] MEDS: INSULIN LISPRO 100 UNIT/ML 3 ML VIAL SUBCUT PRN (11:36)
[2017-11-23] MEDS: APIXABAN 2.5 MG TABLET PO SCH ×2 (11:40→23:43)
[2017-11-23 19:37] LABS: ABSOLUTE BASOPHILS # (AUTO) 0.1 10^3/uL (0.0-0.2); ABSOLUTE EOSINOPHILS # (AUTO) 0.4 10^3/uL (0.0-0.6); ABSOLUTE LYMPHOCYTES (AUTO) 1.2 10^3/uL (0.5-4.7); ABSOLUTE MONOCYTES (AUTO) 0.9 10^3/uL (0.1-1.4); ABSOLUTE NEUT (AUTO) 6.8 10^3/uL (1.7-8.2); BASOPHILS % (AUTO) 1.1 % (0-2); EOSINOPHILS % (AUTO) 4.2 % (0-6); HEMATOCRIT 33.6 % (37.9-51.0); LYMPHOCYTES % (AUTO) 12.5 % (13-45); MEAN CORPUSCULAR HEMOGLOBIN 26.2 pg (27.0-33.4); MEAN CORPUSCULAR HGB CONC 32.8 g/dL (32.0-36.0); MEAN CORPUSCULAR VOLUME 80 fl (80-97); MONOCYTES % (AUTO) 9.7 % (3-13); PLATELET COUNT 202 10^3/uL (150-450); RED BLOOD COUNT 4.22 10^6/uL (4.35-5.55); RED CELL DISTRIBUTION WIDTH 16.2 % (11.5-14.0); SEGMENTED NEUTROPHILS % (AUTO) 72.5 % (42-78); TOTAL CELLS COUNTED % (AUTO) 100 %; WHITE BLOOD COUNT 9.4 10^3/uL (4.0-10.5)
--- NOTE | 2017-11-23 20:57 | PDOC PROGRESS REPORT ---
Subjective Progress Note for:: 11/23/17 Subjective:: Patient was seen by the bedside, he continues to improve Reason For Visit: SEPSIS DUE TO UTI Physical Exam Vital Signs: Temp Pulse Resp BP Pulse Ox 97.8 F 92 14 132/84 H 99 11/23/17 20:16 11/23/17 20:16 11/23/17 20:16 11/23/17 20:16 11/23/17 20:16 Intake & Output 11/22/17 11/23/17 11/24/17 06:59 06:59 06:59 Intake Total 300 766 384 Output Total 2395 1475 400 Balance -2095 -709 -16 Weight 68.4 kg 68.4 kg General appearance: PRESENT: no acute distress Eye exam: PRESENT: PERRLA Respiratory exam: PRESENT: clear to auscultation denita Cardiovascular exam: PRESENT: +S1, +S2 GI/Abdominal exam: PRESENT: soft Neurological exam: PRESENT: alert Results Laboratory Results: 11/23/17 19:23 11/23/17 03:40 11/23/17 11/23/17 11/23/17 03:40 03:40 19:23 WBC 9.4 RBC 4.22 L Hgb 11.0 L Hct 33.6 L MCV 80 MCH 26.2 L MCHC 32.8 RDW 16.2 H Plt Count 202 Seg Neutrophils % 72.5 Lymphocytes % 12.5 L Monocytes % 9.7 Eosinophils % 4.2 Basophils % 1.1 Absolute Neutrophils 6.8 Absolute Lymphocytes 1.2 Absolute Monocytes 0.9 Absolute Eosinophils 0.4 Absolute Basophils 0.1 Sodium 146.3 H Potassium 4.4 Chloride 106 Carbon Dioxide 31 H Anion Gap 9 BUN 43 H Creatinine 1.84 H Est GFR ( Amer) 43 L Est GFR (Non-Af Amer) 35 L Glucose 134 H Calcium 9.5 Total Protein Cancelled Albumin Cancelled 11/16/17 11/18/17 11/18/17 12:46 04:02 09:25 Creatine Kinase < 20 L CK-MB (CK-2) Troponin I NT-Pro-B Natriuret Pep 65971 H 95514 H 11/18/17 11/19/17 09:25 03:43 Creatine Kinase CK-MB (CK-2) 1.71 Troponin I 0.013 NT-Pro-B Natriuret Pep 87516 H Impressions: Gastrostomy Tube Placement 11/17/17 00:00 IMPRESSION: Nasogastric catheter tip overlies the body of the stomach with side port below the GE junction. Head CT 11/17/17 00:00 IMPRESSION: No acute intracranial findings. EVIDENCE OF ACUTE STROKE: NO. Thoracentesis Ultrasound 11/18/17 13:09 IMPRESSION: SUCCESSFUL THORACENTESIS USING ULTRASOUND GUIDANCE. Chest X-Ray 11/21/17 06:00 IMPRESSION: Bilateral effusions and opacities right greater than left with minimal improvement. Assessment & Plan - Diagnosis (1) Catheter-associated urinary tract infection Qualifiers: Indwelling urinary catheter type: cystostomy catheter Encounter type: initial encounter Qualified Code(s): T83.510A - Infection and inflammatory reaction due to cystostomy catheter, initial encounter; N39.0 - Urinary tract infection, site not specified; N39.0 - Urinary tract infection, site not specified Is this a current diagnosis for this admission?: Yes (2) Obstructed suprapubic catheter Qualifiers: Encounter type: initial encounter Qualified Code(s): T83.090A - Other mechanical complication of cystostomy catheter, initial encounter Is this a current diagnosis for this admission?: Yes (3) Sepsis Qualifiers: Sepsis type: sepsis due to unspecified organism Qualified Code(s): A41.9 - Sepsis, unspecified organism Is this a current diagnosis for this admission?: Yes (4) Acute kidney injury Is this a current diagnosis for this admission?: Yes (5) Respiratory failure with hypercapnia Qualifiers: Chronicity: acute Qualified Code(s): J96.02 - Acute respiratory failure with hypercapnia Is this a current diagnosis for this admission?: Yes (6) Pleural effusion Is this a current diagnosis for this admission?: Yes (7) Metabolic encephalopathy Is this a current diagnosis for this admission?: Yes (8) Obtundation Is this a current diagnosis for this admission?: Yes (9) Transudative pleural effusion Is this a current diagnosis for this admission?: Yes (10) Hypoalbuminemia Is this a current diagnosis for this admission?: Yes (11) Proteinuria, unspecified Qualifiers: Proteinuria type: unspecified Qualified Code(s): R80.9 - Proteinuria, unspecified Is this a current diagnosis for this admission?: Yes
[2017-11-24 06:03] LABS: ANION GAP 10 (5-19); BLOOD UREA NITROGEN 43 mg/dL (7-20); CALCIUM 9.5 mg/dL (8.4-10.2); CARBON DIOXIDE 33 mmol/L (22-30); CHLORIDE 103 mmol/L (98-107); GLUCOSE 109 mg/dL (75-110); POTASSIUM 4.3 mmol/L (3.6-5.0); SODIUM 145.8 mmol/L (137-145)
[2017-11-24] MEDS: IPRATROPIUM/ALBUTEROL 0.5-2.5 MG/3 ML AMPUL NEB PRN ×2 (07:49→20:20)
[2017-11-24] MEDS: ACETYLCYSTEINE 20% SOLN 800 MG/4 ML VIAL.NEB NEB SCH ×2 (07:50→20:20)
[2017-11-24] MEDS: METOPROLOL SUCCINATE 25 MG TAB.SR.24H PO SCH (08:01)
[2017-11-24] MEDS: INSULIN GLARGINE,HUM.REC.ANLOG 300 UNIT/3 ML INSULN.PEN SUBCUT SCH (08:01)
[2017-11-24] MEDS: CITALOPRAM HYDROBROMIDE 20 MG TABLET PO SCH (08:01)
[2017-11-24] MEDS: FOLIC ACID/VITAMIN B COMP W-C CAPSULE PO SCH (08:01)
[2017-11-24] MEDS: AMIODARONE HCL 200 MG TABLET PO SCH (08:04)
[2017-11-24] MEDS: FUROSEMIDE 40 MG TABLET PO SCH (08:04)
[2017-11-24] MEDS: POTASSIUM CHLORIDE 10 MEQ CAPSULE.ER PO SCH ×2 (09:36→22:02)
[2017-11-24] MEDS: SITAGLIPTIN PHOSPHATE 25 MG TABLET PO SCH (09:37)
[2017-11-24] MEDS: DOCUSATE SODIUM 100 MG CAPSULE PO SCH ×2 (09:37→22:02)
[2017-11-24] MEDS: APIXABAN 2.5 MG TABLET PO SCH ×2 (09:37→22:02)
[2017-11-24] MEDS: LANSOPRAZOLE 15 MG TAB.RAP.DR PO SCH (09:37)
[2017-11-24 14:42] LABS: A/G RATIO. 0.9 (0.7-1.7); ALBUMIN 3 2.8 g/dL (2.9-4.4); ALPHA-1-GLOBULIN 0.3 g/dL (0.0-0.4); BETA GLOBULIN 0.9 g/dL (0.7-1.3); GAMMA GLOBULINS 1.5 g/dL (0.4-1.8); IMMUNOGLOBULIN A 537 mg/dL (61-437); IMMUNOGLOBULIN G 1545 mg/dL (700-1600); IMMUNOGLOBULIN M 93 mg/dL (15-143); MONOCLONAL-SPIKE Not Observed g/dL (Not Observ); PROTEIN TOTAL SERUM 6.1 g/dL (6.0-8.5)
[2017-11-24] MEDS: INSULIN LISPRO 100 UNIT/ML 3 ML VIAL SUBCUT PRN (18:02)
--- NOTE | 2017-11-24 21:13 | PDOC PROGRESS REPORT ---
Subjective Progress Note for:: 11/24/17 Subjective:: Patient was seen by the bedside, there is no new complaint today Reason For Visit: SEPSIS DUE TO UTI Physical Exam Vital Signs: Temp Pulse Resp BP Pulse Ox 97.3 F 92 29 H 126/81 H 100 11/24/17 19:48 11/24/17 19:48 11/24/17 19:48 11/24/17 19:48 11/24/17 19:48 Intake & Output 11/23/17 11/24/17 11/25/17 06:59 06:59 06:59 Intake Total 766 502 550 Output Total 3969 899 8937 Balance -999 -169 -384 Weight 68.4 kg 69.2 kg General appearance: PRESENT: no acute distress Eye exam: PRESENT: PERRLA Respiratory exam: PRESENT: rhonchi Cardiovascular exam: PRESENT: +S1, +S2 GI/Abdominal exam: PRESENT: soft Neurological exam: PRESENT: alert Results Laboratory Results: 11/23/17 19:23 11/24/17 04:17 11/23/17 11/24/17 03:40 04:17 Sodium 145.8 H Potassium 4.3 Chloride 103 Carbon Dioxide 33 H Anion Gap 10 BUN 43 H Creatinine 1.98 H Est GFR ( Amer) 39 L Est GFR (Non-Af Amer) 32 L Glucose 109 Calcium 9.5 Total Protein 6.1 Albumin 2.8 L 11/16/17 11/18/17 11/18/17 12:46 04:02 09:25 Creatine Kinase < 20 L CK-MB (CK-2) Troponin I NT-Pro-B Natriuret Pep 01117 H 42988 H 11/18/17 11/19/17 09:25 03:43 Creatine Kinase CK-MB (CK-2) 1.71 Troponin I 0.013 NT-Pro-B Natriuret Pep 66790 H Impressions: Gastrostomy Tube Placement 11/17/17 00:00 IMPRESSION: Nasogastric catheter tip overlies the body of the stomach with side port below the GE junction. Head CT 11/17/17 00:00 IMPRESSION: No acute intracranial findings. EVIDENCE OF ACUTE STROKE: NO. Thoracentesis Ultrasound 11/18/17 13:09 IMPRESSION: SUCCESSFUL THORACENTESIS USING ULTRASOUND GUIDANCE. Chest X-Ray 11/21/17 06:00 IMPRESSION: Bilateral effusions and opacities right greater than left with minimal improvement. Assessment & Plan - Diagnosis (1) Catheter-associated urinary tract infection Qualifiers: Indwelling urinary catheter type: cystostomy catheter Encounter type: initial encounter Qualified Code(s): T83.510A - Infection and inflammatory reaction due to cystostomy catheter, initial encounter; N39.0 - Urinary tract infection, site not specified; N39.0 - Urinary tract infection, site not specified Is this a current diagnosis for this admission?: Yes (2) Obstructed suprapubic catheter Qualifiers: Encounter type: initial encounter Qualified Code(s): T83.090A - Other mechanical complication of cystostomy catheter, initial encounter Is this a current diagnosis for this admission?: Yes (3) Sepsis Qualifiers: Sepsis type: sepsis due to unspecified organism Qualified Code(s): A41.9 - Sepsis, unspecified organism Is this a current diagnosis for this admission?: Yes (4) Acute kidney injury Is this a current diagnosis for this admission?: Yes (5) Respiratory failure with hypercapnia Qualifiers: Chronicity: acute Qualified Code(s): J96.02 - Acute respiratory failure with hypercapnia Is this a current diagnosis for this admission?: Yes (6) Pleural effusion Is this a current diagnosis for this admission?: Yes (7) Metabolic encephalopathy Is this a current diagnosis for this admission?: Yes (8) Obtundation Is this a current diagnosis for this admission?: Yes (9) Transudative pleural effusion Is this a current diagnosis for this admission?: Yes (10) Hypoalbuminemia Is this a current diagnosis for this admission?: Yes (11) Proteinuria, unspecified Qualifiers: Proteinuria type: unspecified Qualified Code(s): R80.9 - Proteinuria, unspecified Is this a current diagnosis for this admission?: Yes
[2017-11-25] MEDS: IPRATROPIUM/ALBUTEROL 0.5-2.5 MG/3 ML AMPUL NEB PRN ×3 (00:05→20:21)
[2017-11-25] MEDS: INSULIN LISPRO 100 UNIT/ML 3 ML VIAL SUBCUT PRN ×3 (00:07→16:57)
[2017-11-25 05:59] LABS: ANION GAP 10 (5-19); BLOOD UREA NITROGEN 44 mg/dL (7-20); CALCIUM 9.6 mg/dL (8.4-10.2); CARBON DIOXIDE 35 mmol/L (22-30); CHLORIDE 101 mmol/L (98-107); GLUCOSE 125 mg/dL (75-110); POTASSIUM 4.3 mmol/L (3.6-5.0); SODIUM 145.9 mmol/L (137-145)
[2017-11-25] MEDS: FUROSEMIDE 40 MG TABLET PO SCH (07:44)
[2017-11-25] MEDS: METOPROLOL SUCCINATE 25 MG TAB.SR.24H PO SCH (07:45)
[2017-11-25] MEDS: FOLIC ACID/VITAMIN B COMP W-C CAPSULE PO SCH (07:46)
[2017-11-25] MEDS: INSULIN GLARGINE,HUM.REC.ANLOG 300 UNIT/3 ML INSULN.PEN SUBCUT SCH (07:47)
[2017-11-25] MEDS: CITALOPRAM HYDROBROMIDE 20 MG TABLET PO SCH (07:47)
[2017-11-25] MEDS: AMIODARONE HCL 200 MG TABLET PO SCH (07:47)
[2017-11-25] MEDS: ACETYLCYSTEINE 20% SOLN 800 MG/4 ML VIAL.NEB NEB SCH ×2 (08:14→20:21)
[2017-11-25] MEDS: SITAGLIPTIN PHOSPHATE 25 MG TABLET PO SCH (09:05)
[2017-11-25] MEDS: APIXABAN 2.5 MG TABLET PO SCH ×2 (09:05→22:46)
[2017-11-25] MEDS: POTASSIUM CHLORIDE 10 MEQ CAPSULE.ER PO SCH ×2 (09:06→22:46)
[2017-11-25] MEDS: LANSOPRAZOLE 15 MG TAB.RAP.DR PO SCH (09:06)
[2017-11-25] MEDS: DOCUSATE SODIUM 100 MG CAPSULE PO SCH ×2 (09:06→22:47)
[2017-11-25] MEDS: CLOTRIMAZOLE 1% CREAM 15 GM TP SCH ×2 (09:06→17:01)
[2017-11-25] MEDS: ACETAMINOPHEN 325 MG TABLET PO PRN ×2 (16:57→22:47)
--- NOTE | 2017-11-25 20:59 | PDOC PROGRESS REPORT ---
Subjective Progress Note for:: 11/25/17 Subjective:: Patient was seen by the bedside, there is no new complaint today Reason For Visit: SEPSIS DUE TO UTI Physical Exam Vital Signs: Temp Pulse Resp BP Pulse Ox 97.4 F 94 18 128/59 H 100 11/25/17 20:41 11/25/17 20:41 11/25/17 20:41 11/25/17 20:41 11/25/17 20:41 Intake & Output 11/24/17 11/25/17 11/26/17 06:59 06:59 06:59 Intake Total 502 570 380 Output Total 750 2000 305 Balance -545 -0200 -570 Weight 69.2 kg 70.2 kg General appearance: PRESENT: no acute distress Eye exam: PRESENT: PERRLA Respiratory exam: PRESENT: clear to auscultation denita Cardiovascular exam: PRESENT: +S1, +S2 Neurological exam: PRESENT: alert Results Laboratory Results: 11/23/17 19:23 11/25/17 05:07 11/25/17 05:07 Sodium 145.9 H Potassium 4.3 Chloride 101 Carbon Dioxide 35 H Anion Gap 10 BUN 44 H Creatinine 2.05 H Est GFR ( Amer) 38 L Est GFR (Non-Af Amer) 31 L Glucose 125 H Calcium 9.6 11/16/17 11/18/17 11/18/17 12:46 04:02 09:25 Creatine Kinase < 20 L CK-MB (CK-2) Troponin I NT-Pro-B Natriuret Pep 97375 H 04391 H 11/18/17 11/19/17 09:25 03:43 Creatine Kinase CK-MB (CK-2) 1.71 Troponin I 0.013 NT-Pro-B Natriuret Pep 26635 H Impressions: Gastrostomy Tube Placement 11/17/17 00:00 IMPRESSION: Nasogastric catheter tip overlies the body of the stomach with side port below the GE junction. Head CT 11/17/17 00:00 IMPRESSION: No acute intracranial findings. EVIDENCE OF ACUTE STROKE: NO. Thoracentesis Ultrasound 11/18/17 13:09 IMPRESSION: SUCCESSFUL THORACENTESIS USING ULTRASOUND GUIDANCE. Chest X-Ray 11/21/17 06:00 IMPRESSION: Bilateral effusions and opacities right greater than left with minimal improvement. Assessment & Plan - Diagnosis (1) Catheter-associated urinary tract infection Qualifiers: Indwelling urinary catheter type: cystostomy catheter Encounter type: initial encounter Qualified Code(s): T83.510A - Infection and inflammatory reaction due to cystostomy catheter, initial encounter; N39.0 - Urinary tract infection, site not specified; N39.0 - Urinary tract infection, site not specified Is this a current diagnosis for this admission?: Yes (2) Obstructed suprapubic catheter Qualifiers: Encounter type: initial encounter Qualified Code(s): T83.090A - Other mechanical complication of cystostomy catheter, initial encounter Is this a current diagnosis for this admission?: Yes (3) Sepsis Qualifiers: Sepsis type: sepsis due to unspecified organism Qualified Code(s): A41.9 - Sepsis, unspecified organism Is this a current diagnosis for this admission?: Yes (4) Acute kidney injury Is this a current diagnosis for this admission?: Yes (5) Respiratory failure with hypercapnia Qualifiers: Chronicity: acute Qualified Code(s): J96.02 - Acute respiratory failure with hypercapnia Is this a current diagnosis for this admission?: Yes (6) Pleural effusion Is this a current diagnosis for this admission?: Yes (7) Metabolic encephalopathy Is this a current diagnosis for this admission?: Yes (8) Obtundation Is this a current diagnosis for this admission?: Yes (9) Transudative pleural effusion Is this a current diagnosis for this admission?: Yes (10) Hypoalbuminemia Is this a current diagnosis for this admission?: Yes (11) Proteinuria, unspecified Qualifiers: Proteinuria type: unspecified Qualified Code(s): R80.9 - Proteinuria, unspecified Is this a current diagnosis for this admission?: Yes
[2017-11-26 05:33] LABS: ANION GAP 8 (5-19); BLOOD UREA NITROGEN 45 mg/dL (7-20); CALCIUM 9.7 mg/dL (8.4-10.2); CARBON DIOXIDE 34 mmol/L (22-30); CHLORIDE 103 mmol/L (98-107); GLUCOSE 107 mg/dL (75-110); POTASSIUM 4.5 mmol/L (3.6-5.0); SODIUM 145.1 mmol/L (137-145)
[2017-11-26] MEDS: ACETYLCYSTEINE 20% SOLN 800 MG/4 ML VIAL.NEB NEB SCH (08:09)
[2017-11-26] MEDS: IPRATROPIUM/ALBUTEROL 0.5-2.5 MG/3 ML AMPUL NEB PRN (08:09)
[2017-11-26] MEDS: METOPROLOL SUCCINATE 25 MG TAB.SR.24H PO SCH (10:02)
[2017-11-26] MEDS: INSULIN GLARGINE,HUM.REC.ANLOG 300 UNIT/3 ML INSULN.PEN SUBCUT SCH (10:02)
[2017-11-26] MEDS: FUROSEMIDE 40 MG TABLET PO SCH (10:02)
[2017-11-26] MEDS: AMIODARONE HCL 200 MG TABLET PO SCH (10:02)
[2017-11-26] MEDS: SITAGLIPTIN PHOSPHATE 25 MG TABLET PO SCH (10:04)
[2017-11-26] MEDS: POTASSIUM CHLORIDE 10 MEQ CAPSULE.ER PO SCH (10:04)
[2017-11-26] MEDS: APIXABAN 2.5 MG TABLET PO SCH (10:04)
[2017-11-26] MEDS: LANSOPRAZOLE 15 MG TAB.RAP.DR PO SCH (10:04)
[2017-11-26] MEDS: CLOTRIMAZOLE 1% CREAM 15 GM TP SCH ×2 (10:04→17:16)
[2017-11-26] MEDS: CITALOPRAM HYDROBROMIDE 20 MG TABLET PO SCH (10:04)
[2017-11-26] MEDS: DOCUSATE SODIUM 100 MG CAPSULE PO SCH (10:04)
[2017-11-26] MEDS: FOLIC ACID/VITAMIN B COMP W-C CAPSULE PO SCH (10:04)
--- NOTE | 2017-11-26 13:47 | PDOC TRANSFER SUMMARY ---
General - Admit/Disc Date/PCP Admission Date/Primary Care Provider: 11/12/17 00:12 JOHN OSBORNE MD Discharge Date: 11/26/17 - Discharge Diagnosis (1) Sepsis Is this a current diagnosis for this admission?: Yes (2) Catheter-associated urinary tract infection Is this a current diagnosis for this admission?: Yes (3) Obstructed suprapubic catheter Is this a current diagnosis for this admission?: Yes (4) Acute kidney injury Is this a current diagnosis for this admission?: Yes (5) Respiratory failure with hypercapnia Is this a current diagnosis for this admission?: Yes (6) Pleural effusion Is this a current diagnosis for this admission?: Yes (7) Metabolic encephalopathy Is this a current diagnosis for this admission?: Yes (8) Obtundation Is this a current diagnosis for this admission?: Yes (9) Transudative pleural effusion Is this a current diagnosis for this admission?: Yes (10) Hypoalbuminemia Is this a current diagnosis for this admission?: Yes (11) Proteinuria, unspecified Is this a current diagnosis for this admission?: Yes - Additional Information Resuscitation Status: Do Not Resuscitate Prescriptions: Valsartan [Diovan 80 mg Tablet] 80 mg PO DAILY #30 tablet Home Medications: Amiodarone HCl [Cordarone 200 mg Tablet] 200 mg PO QAM 10/25/16 Citalopram Hydrobromide [Celexa 20 mg Tablet] 20 mg PO QAM 10/25/16 Docusate Sodium [Colace 100 mg Capsule] 100 mg PO Q12 10/25/16 Furosemide [Lasix] 60 mg PO QAM 10/25/16 Metoprolol Succinate [Toprol Xl 25 mg Tab.sr] 12.5 mg PO QAM 10/25/16 Nitroglycerin [Nitrostat] 0.4 mg SL Q5MP PRN MDD 3 TABLETS 10/25/16 Pantoprazole Sodium [Protonix] 20 mg PO Q6AM 10/25/16 Ammonium Lactate [Lac-Hydrin 12% Lotion 225Gm/Bottle] 1 applic TP Q12HP PRN Apixaban [Eliquis 2.5 mg Tablet] 2.5 mg PO Q12 11/12/17 B Complex W-C No.20/Folic Acid [Nephrocaps Softgel] 1 mg PO QAM 11/12/17 Cranberry Fruit Extract [Cranberry 500 mg Capsule] 500 mg PO QAM 11/12/17 Insulin Aspart [Novolog Insulin 100 Unit/1 ml 10 ml] 0 unit SUBCUT ACHS Insulin Detemir [Levemir Flextouch] 10 unit SQ QAM 11/12/17 Ipratropium/Albuterol Sulfate [Duoneb 3 ml Ampul] 3 ml NEB RTQ4HP PRN 11/12/17 Linagliptin [Tradjenta] 5 mg PO QAM 11/12/17 Nystatin [Mycostatin Topical Powder 15 gm] 1 applic TP BID MDD APPLY TO GROIN Acetaminophen [Tylenol 325 mg Tablet] 650 mg PO Q4HP PRN tablet 11/26/17 Clotrimazole 1% Cream [Lotrimin 1% Cream 15 gm] 1 applic TP BID tube 11/26/17 Valsartan [Diovan 80 mg Tablet] 80 mg PO DAILY #30 tablet 11/26/17 History of Present Illness Admission Date/PCP: 11/12/17 00:12 JOHN OSBORNE MD History of Present Illness: DAREK SIMON is a 82 year old male, he has multiple comorbid conditions including obstructive uropathy, Roman catheter dependence, dementia history of malignant neoplasm of the bladder, he was transferred from the senior living to the emergency room for evaluation of malfunction of the Roman catheter. The senior living staff could not irrigate the suprapubic catheter after multiple attempts ,was referred to the ER for further evaluation. In the emergency room , attempt to irrigate the suprapubic catheter was not successful, there was associated abdominal pain with leukocytosis and tachycardia the catheter was replaced with a new one because of the sepsis syndrome the ED physician felt that patient needed to be admitted to the hospital for management. I saw patient by the bedside, he has no new complaints, there is no fever or chills, he is awake oriented to time place and person, there is associated acute kidney injury Hospital Course Hospital Course: Patient was admitted for the management of sepsis associated with chronic indwelling Roman catheter, hospital because was complicated with acute hypoxemic respiratory failure due to transudative pleural effusion, she underwent therapeutic thoracentesis with large volume pleural fluid removed. Patient was treated with IV antibiotic, he has underlining chronic kidney disease stage III. He has hypoalbuminemia due to near nephrotic range proteinuria, he has diabetes nephropathy on this admission patient was made a DNR status, he was treated with noninvasive positive pressure ventilation, BiPAP. Patient is a resident of [facility] [place]. Patient has [facility] at this point, he will be transferred to senior living for continuity of care. Physical Exam Vital Signs: Temp Pulse Resp BP Pulse Ox 97.4 F 96 18 142/81 H 98 11/26/17 07:39 11/26/17 08:05 11/26/17 08:05 11/26/17 07:39 11/26/17 08:05 Intake & Output 11/25/17 11/26/17 11/27/17 06:59 06:59 06:59 Intake Total 570 830 Output Total 2000 1750 Balance -1430 -920 Weight 70.2 kg 70.1 kg General appearance: PRESENT: no acute distress Eye exam: PRESENT: PERRLA Respiratory exam: PRESENT: clear to auscultation denita Cardiovascular exam: PRESENT: +S1, +S2 GI/Abdominal exam: PRESENT: soft Neurological exam: PRESENT: alert Results Laboratory Results: 11/23/17 19:23 11/26/17 04:37 11/26/17 04:37 Sodium 145.1 H Potassium 4.5 Chloride 103 Carbon Dioxide 34 H Anion Gap 8 BUN 45 H Creatinine 1.99 H Est GFR ( Amer) 39 L Est GFR (Non-Af Amer) 32 L Glucose 107 Calcium 9.7 11/16/17 11/18/17 11/18/17 12:46 04:02 09:25 Creatine Kinase < 20 L CK-MB (CK-2) Troponin I NT-Pro-B Natriuret Pep 37512 H 20524 H 11/18/17 11/19/17 09:25 03:43 Creatine Kinase CK-MB (CK-2) 1.71 Troponin I 0.013 NT-Pro-B Natriuret Pep 31597 H Impressions: Gastrostomy Tube Placement 11/17/17 00:00 IMPRESSION: Nasogastric catheter tip overlies the body of the stomach with side port below the GE junction. Head CT 11/17/17 00:00 IMPRESSION: No acute intracranial findings. EVIDENCE OF ACUTE STROKE: NO. Thoracentesis Ultrasound 11/18/17 13:09 IMPRESSION: SUCCESSFUL THORACENTESIS USING ULTRASOUND GUIDANCE. Chest X-Ray 11/21/17 06:00 IMPRESSION: Bilateral effusions and opacities right greater than left with minimal improvement. Qualifiers - * PATIENT BEING DISCHARGED WITH ANY OF THE FOLLOWING DIAGNOSIS: No
[2017-11-26 15:57] VITALS: BP 134/85
== END 2017-11-26 18:05 | DRG 871 ==
LOC: ER 20:43 → EH 11-12 00:12 → 5 11-12 03:15 → ICU 11-17 12:08 → 4N 11-22 16:14
PROVIDERS: ADMIT Internal Medicine; ATTEND Internal Medicine
PROC: 0D9670Z Drainage of Stomach with Drainage Device, Via Natural or Artificial Opening (ICD-10-PCS; 2017-11-17)
PROC: 0W993ZX Drainage of Right Pleural Cavity, Percutaneous Approach, Diagnostic (ICD-10-PCS; principal; 2017-11-18)
DX: A41.9 Sepsis, unspecified organism (principal); J96.02 Acute respiratory failure with hypercapnia; G93.41 Metabolic encephalopathy; Z66 Do not resuscitate; N17.9 Acute kidney failure, unspecified; T83.510A Infection and inflammatory reaction due to cystostomy catheter, initial encounter; T83.090A Other mechanical complication of cystostomy catheter, initial encounter; J90 Pleural effusion, not elsewhere classified; N39.0 Urinary tract infection, site not specified; I13.0 Hypertensive heart and chronic kidney disease with heart failure and stage 1 through stage 4 chronic kidney disease, or unspecified chronic kidney disease; E11.22 Type 2 diabetes mellitus with diabetic chronic kidney disease; N18.3 Chronic kidney disease, stage 3 (moderate); I50.9 Heart failure, unspecified; J44.9 Chronic obstructive pulmonary disease, unspecified; K21.9 Gastro-esophageal reflux disease without esophagitis; I48.2 Chronic atrial fibrillation; B96.4 Proteus (mirabilis) (morganii) as the cause of diseases classified elsewhere; B95.61 Methicillin susceptible Staphylococcus aureus infection as the cause of diseases classified elsewhere; B95.2 Enterococcus as the cause of diseases classified elsewhere; E88.09 Other disorders of plasma-protein metabolism, not elsewhere classified; R80.9 Proteinuria, unspecified; C67.9 Malignant neoplasm of bladder, unspecified; F03.90 Unspecified dementia, unspecified severity, without behavioral disturbance, psychotic disturbance, mood disturbance, and anxiety; F32.9 Major depressive disorder, single episode, unspecified; I25.2 Old myocardial infarction; Z95.0 Presence of cardiac pacemaker; Z79.01 Long term (current) use of anticoagulants; Z79.4 Long term (current) use of insulin; Z79.899 Other long term (current) drug therapy
CPT/HCPCS: 32555; 36415; 36600; 43752; 70450; 71045; 80048; 80053; 81001; 82150; 82550; 82553; 82570; 82803; 82945; 82962; 83605; 83615; 83735; 83880; 84100; 84155; 84156; 84157; 84166; 84484; 85025; 85610; 85730; 86320; 87040; 87070; 87075; 87086; 87088; 87186; 87205; 88305; 88341; 88342; 89050; 93005; 93010; 94640; 94660; 94667; 94668; 96365; 99285; G8981-GP; G8982-GP; J0692; J0696; J1644; J1815; J1940; J3010; J3490; J7030; J7620

== ENCOUNTER 2017-12-03 02:08 | Inpatient (IN) | payer MEDICARE, OTHER ==
--- NOTE | 2017-12-03 02:21 | ER Document Report ---
ED General - General Stated Complaint: UNRESPONSIVE Time Seen by Provider: 12/03/17 02:11 Notes: Patient is a 82-year-old male comes emergency department for chief complaint of altered mental status. He comes from [place] by EMS, last known normal was at 8 PM 12/02/2017, afterwards patient stopped responding or following directions. At baseline patient has confusion but is responsive reportedly. No vomiting, fever, respiratory difficulties, or other abnormalities reported. Past medical history includes CAD, AICD, DMII, suprapubic catheter, he is on Eliquis. TRAVEL OUTSIDE OF THE [place] IN LAST 30 DAYS: No - Related Data Allergies/Adverse Reactions: ciprofloxacin [Ciprofloxacin] Allergy (Severe, Verified 11/12/17 11:04) skin turned red, developed sores Past Medical History - General Information source: Emergency Med Personnel Cannot obtain history due to: Altered mental status - Social History Smoking Status: Never Smoker Frequency of alcohol use: None Drug Abuse: None Lives with: [facility] Family History: Reviewed & Not Pertinent - Past Medical History Cardiac Medical History: Reports: Hx Congestive Heart Failure, Hx Heart Attack - pacemaker, stent, Hx Hypertension Denies: Hx Coronary Artery Disease Pulmonary Medical History: Reports: Hx COPD, Hx Sleep Apnea Denies: Hx Asthma, Hx Bronchitis, Hx Pneumonia Neurological Medical History: Denies: Hx Cerebrovascular Accident, Hx Seizures Endocrine Medical History: Reports: Hx Diabetes Mellitus Type 2 Renal/ Medical History: Denies: Hx Peritoneal Dialysis GI Medical History: Reports: Hx Gastroesophageal Reflux Disease Musculoskeletal Medical History: Reports Hx Arthritis Psychiatric Medical History: Reports: Hx Depression Past Surgical History: Reports: Hx Cardiac Catheterization, Hx Coronary Stent, Hx Orthopedic Surgery, Hx Pacemaker - Immunizations Hx Diphtheria, Pertussis, Tetanus Vaccination: No Review of Systems - Review of Systems Constitutional: No symptoms reported EENT: No symptoms reported Cardiovascular: No symptoms reported Respiratory: No symptoms reported Gastrointestinal: No symptoms reported Genitourinary: No symptoms reported Male Genitourinary: No symptoms reported Musculoskeletal: No symptoms reported Skin: No symptoms reported Hematologic/Lymphatic: No symptoms reported Neurological/Psychological: See HPI Physical Exam - Vital signs Vitals: Resp 22 H 12/03/17 02:19 - General General appearance: Other - Patient quiet, occasionally opens his eyes, will respond to voice and open his eyes at times and at other times only if he has painful stimuli. In distress: None - HEENT Head: Normocephalic, Atraumatic Eyes: Normal Conjunctiva: Normal Extraocular movements intact: Yes Eyelashes: Normal Pupils: PERRL Mouth/Lips: Normal Mucous membranes: Dry Neck: Normal - Respiratory Respiratory status: No respiratory distress. No: Respiratory distress, Tachypnea Breath sounds: Normal. No: Decreased air movement, Wheezing - Cardiovascular Rhythm: Regular. No: Tachycardia Heart sounds: Normal auscultation, S1 appreciated, S2 appreciated - Abdominal Inspection: Other - Suprapubic catheter in place, actually appears new, no drainage or bleeding from the site, no erythema or tenderness at the site Tenderness: Nontender. No: Tender, Guarding - Genitourinary Inspection: Normal - Back Back: Normal, Nontender. No: Tender - Extremities General upper extremity: Normal inspection, Nontender, Normal temperature General lower extremity: Normal inspection, Nontender, Normal temperature. No: Edema - Neurological [place] Coma Scale Eye Opening: Spontaneous [place] Coma Scale Verbal: Incomprehensible [place] Coma Scale Motor: Withdraws to Pain [place] Coma Scale Total: 10 - Skin Skin Temperature: Warm Skin Moisture: Dry Skin Color: Normal Course - Re-evaluation Re-evalutation: Review of previous admission shows patient was made DNR but has no paperwork with him. He is on Eliquis with altered mental status, CAT scan with no acute abnormalities. Chest x-ray with no significant change. Paced rhythm. Patient is not hypotensive, tachycardic, or febrile. CBC unremarkable, chemistry shows worsening kidney functioning, previous creatinine 1.9 now 3, GFR is reduced. I examined the patient's suprapubic catheter, the catheter itself appears fine but the bag is not draining properly. The back was replaced along with the majority of the tubing and afterwards the urine began to flow freely immediately. Suspect patient had obstruction with his bag with a tubing malfunction. Urine obtained from the new bag and is grossly infected. Most likely cause of patient's altered mental status and acute renal failure. Covering with Rocephin, previous culture shows sensitivity to Rocephin across- the-board. Patient was given some IV fluids. Will discuss with hospitalist for admission because of altered mental status, renal failure, urinary tract infection. Patient remains with a GCS of 10 and no significant change on reevaluation's. Discussed with Dr. Teresa, on-call for Dr. Shelton, patient will be admitted to telemetry full admission. - Vital Signs Vital signs: Temp Pulse Resp BP Pulse Ox 23 H 128/75 H 99 12/03/17 03:30 12/03/17 03:30 12/03/17 03:30 - Laboratory Result Diagrams: 12/03/17 01:53 12/03/17 01:53 Laboratory results interpreted by me: 12/03/17 12/03/17 12/03/17 01:53 01:53 03:45 Hgb 11.6 L Hct 35.5 L MCV 79 L MCH 25.8 L RDW 16.3 H Carbon Dioxide 33 H BUN 50 H Creatinine 3.08 H Est GFR ( Amer) 24 L Est GFR (Non-Af Amer) 19 L Direct Bilirubin 0.6 H ALT 18 L Alkaline Phosphatase 141 H Creatine Kinase 31 L Albumin 3.2 L Urine Protein 100 H Urine Blood LARGE H Urine Urobilinogen 4.0 H Ur Leukocyte Esterase LARGE H Salicylates < 1.0 L Acetaminophen < 10 L Discharge - Discharge Clinical Impression: Acute renal insufficiency Altered mental status Qualifiers: Altered mental status type: unspecified Qualified Code(s): R41.82 - Altered mental status, unspecified Urinary tract infection Qualifiers: Urinary tract infection type: site unspecified Hematuria presence: with hematuria Qualified Code(s): N39.0 - Urinary tract infection, site not specified Urinary catheter dysfunction Qualifiers: Encounter type: initial encounter Qualified Code(s): T83.018A - Breakdown ( mechanical) of other urinary catheter, initial encounter Condition: Stable Disposition: ADMITTED INPATIENT Admitting Provider: Brii - for Cat Unit Admitted: Telemetry Referrals: JOHN SHELTON MD [Primary Care Provider] - Follow up as needed
[2017-12-03 02:34] LABS: ABSOLUTE BASOPHILS # (AUTO) 0.1 10^3/uL (0.0-0.2); ABSOLUTE EOSINOPHILS # (AUTO) 0.2 10^3/uL (0.0-0.6); ABSOLUTE LYMPHOCYTES (AUTO) 1.4 10^3/uL (0.5-4.7); ABSOLUTE MONOCYTES (AUTO) 0.9 10^3/uL (0.1-1.4); ABSOLUTE NEUT (AUTO) 5.4 10^3/uL (1.7-8.2); BASOPHILS % (AUTO) 1.2 % (0-2); EOSINOPHILS % (AUTO) 3.1 % (0-6); HEMATOCRIT 35.5 % (37.9-51.0); HEMOGLOBIN 11.6 g/dL (13.5-17.0); LYMPHOCYTES % (AUTO) 17.2 % (13-45); MEAN CORPUSCULAR HEMOGLOBIN 25.8 pg (27.0-33.4); MEAN CORPUSCULAR HGB CONC 32.7 g/dL (32.0-36.0); MEAN CORPUSCULAR VOLUME 79 fl (80-97); MONOCYTES % (AUTO) 11.6 % (3-13); PLATELET COUNT 207 10^3/uL (150-450); RED BLOOD COUNT 4.49 10^6/uL (4.35-5.55); RED CELL DISTRIBUTION WIDTH 16.3 % (11.5-14.0); SEGMENTED NEUTROPHILS % (AUTO) 66.9 % (42-78); TOTAL CELLS COUNTED % (AUTO) 100 %
[2017-12-03 02:57] LABS: ALANINE AMINOTRANSFERASE 18 U/L (21-72); ALBUMIN 3.2 g/dL (3.5-5.0); ALKALINE PHOSPHATASE 141 U/L (38-126); ANION GAP 10 (5-19); ASPARTATE AMINO TRANSFERASE 22 U/L (17-59); BILIRUBIN,DIRECT 0.6 mg/dL (0.0-0.4); BILIRUBIN,TOTAL 0.9 mg/dL (0.2-1.3); BLOOD UREA NITROGEN 50 mg/dL (7-20); CALCIUM 9.6 mg/dL (8.4-10.2); CARBON DIOXIDE 33 mmol/L (22-30); CHLORIDE 102 mmol/L (98-107); CREATINE KINASE 31 U/L (55-170); GLUCOSE 77 mg/dL (75-110); POTASSIUM 4.3 mmol/L (3.6-5.0); SODIUM 144.7 mmol/L (137-145); TOTAL PROTEIN 7.1 g/dL (6.3-8.2)
[2017-12-03 03:00] LABS: ACETAMINOPHEN < 10 ug/mL (10-30); SALICYLATE < 1.0 mg/dL (2.0-20.0)
[2017-12-03] MEDS ORDERED: NORMAL SALINE 1000 ML 500 ML IV ONE (03:11)
--- NOTE | 2017-12-03 03:33 | RADIOLOGY REPORT (SQ) ---
EXAM DESCRIPTION: CT HEAD WITHOUT IV CONTRAST COMPLETED DATE/TME: 12/03/2017 02:18 CLINICAL HISTORY: 82 years, Male, altered mental status COMPARISON: 11/17/2017 TECHNIQUE: Axial CT images of the brain were obtained without contrast. Sagittal and coronal reformats were performed. DL [id number] Images stored on PACS. All CT scanners at this facility use dose modulation, iterative reconstruction, and/or weight based dosing when appropriate to reduce radiation dose to as low as reasonably achievable (ALARA). [facility]: Dose Right [facility]: CareDose [facility]: Dose Right [facility]: Teradose 4D [facility]: Smart AdWhirl LIMITATIONS: None. FINDINGS: There is no acute infarct, hemorrhage, mass, edema, hydrocephalus, or extra-axial fluid collection. There is diffuse cerebral atrophy with mild periventricular deep white matter chronic microvascular changes. The paranasal sinuses and mastoid air cells are clear. There is no acute fracture IMPRESSION: No acute intracranial abnormality TECHNICAL DOCUMENTATION: Quality ID # 436: Final reports with documentation of one or more dose reduction techniques (e.g., Automated exposure control, adjustment of the mA and/or kV according to patient size, use of iterative reconstruction technique) 2010 [employer]- All Rights Reserved
--- NOTE | 2017-12-03 03:39 | RADIOLOGY REPORT (SQ) ---
Chest single view on 12/03/2017 at 2:39 AM CLINICAL INDICATION: Altered mental status COMPARISON: 11/21/2017 FINDINGS: 2-lead left subclavian pacemaker is noted in place. Mild cardiomegaly is noted. There has been improvement in right greater than left pleural effusions with small residual right pleural effusion. There is adjacent right basilar atelectasis and/or pneumonia. The lungs are otherwise clear. Vascular calcification is noted in the aorta. The patient is status post a left shoulder arthroplasty. IMPRESSION: Persistent small right pleural effusion with adjacent right basilar atelectasis or pneumonia.
[2017-12-03 04:10] LABS: APPEARANCE,URINE CLOUDY; BILIRUBIN,URINE NEGATIVE (NEGATIVE); COLOR,URINE AMBER; GLUCOSE, URINE NEGATIVE (NEGATIVE); KETONES,URINE NEGATIVE (NEGATIVE); LEUKOCYTE ESTERASE,URINE LARGE (NEGATIVE); NITRITE,URINE NEGATIVE (NEGATIVE); PROTEIN,URINE 100 mg/dL (NEGATIVE); URINE SPECIFIC GRAVITY 1.011
[2017-12-03 04:25] LABS: URINE AMPHETAMINES SCREEN NEGATIVE; URINE BARBITURATES SCREEN NEGATIVE; URINE BENZODIAZEPINES SCREEN NEGATIVE; URINE COCAINE SCREEN NEGATIVE; URINE MARIJUANA (THC) SCREEN NEGATIVE; URINE METHADONE SCREEN NEGATIVE; URINE PHENCYCLIDINE SCREEN NEGATIVE
[2017-12-03] MEDS ORDERED: CEFTRIAXONE INJ 1000 MG VIAL IV ONE (04:51)
--- NOTE | 2017-12-03 09:42 | EKG REPORT ---
SEVERITY:- ABNORMAL ECG - VENTRICULAR-PACED COMPLEXES NONSPECIFIC IVCD WITH LAD : Confirmed by: Malik Mckeon 03-Dec-2017 09:41:48
[2017-12-03] MEDS ORDERED: NITROGLYCERIN 0.4 MG/TAB 25 TAB/BOTTLE SL PRN (11:31)
[2017-12-03] MEDS ORDERED: (PENDING PHARMACY ID) (Ammonium Lactate 1 APPLIC) TP PRN (11:31)
[2017-12-03] MEDS ORDERED: IPRATROPIUM/ALBUTEROL 0.5-2.5 MG/3 ML AMPUL NEB PRN (11:31)
[2017-12-03] MEDS ORDERED: AMMONIUM LACTATE 12% LOTION 225GM BOTTLE TP PRN (11:39)
--- NOTE | 2017-12-03 12:00 | PDOC H&P ---
History of Present Illness Admission Date/PCP: 12/03/17 07:39 JOHN OSBORNE MD Patient complains of: Altered mental status History of Present Illness: DAREK SIMON is a 82 year old male resident at [facility] patient of Dr Osborne who was brought to the ED with reported altered mental status. His initial evaluation in the ED was significant for obstruction of his suprapubic Roman catheter. Upon resolution of the obstruction with replacement of the Roman catheter, patient had significant efflux from the urinary bladder with cloudy character to the urine. Also, his laboratory evaluation revealed acute renal injury and possible urinary tract infection. 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 Past Medical History Cardiac Medical History: Reports: Congestive Heart Failure, Myocardial Infarction - pacemaker, stent, Hypertension Denies: Coronary Artery Disease Pulmonary Medical History: Reports: Chronic Obstructive Pulmonary Disease (COPD) , Sleep Apnea Denies: Asthma, Bronchitis, Pneumonia Neurological Medical History: Denies: Seizures Endocrine Medical History: Reports: Diabetes Mellitus Type 2 GI Medical History: Reports: Gastroesophageal Reflux Disease Musculoskeltal Medical History: Reports: Arthritis Psychiatric Medical History: Reports: Depression Hematology: Reports: Anemia Denies: Sickle Cell Disease Past Surgical History Past Surgical History: Reports: Cardiac Catheterization, Coronary Stent, Orthopedic Surgery, Pacemaker Social History Lives with: Group Home Smoking Status: Never Smoker Frequency of Alcohol Use: None Hx Recreational Drug Use: No Drugs: None Hx Prescription Drug Abuse: No Family History Family History: Reviewed & Not Pertinent Parental Family History Reviewed: Yes Children Family History Reviewed: Yes Sibling(s) Family History Reviewed.: Yes Medication/Allergy Home Medications: Amiodarone HCl [Cordarone 200 mg Tablet] 200 mg PO QAM 10/25/16 Citalopram Hydrobromide [Celexa 20 mg Tablet] 20 mg PO QAM 10/25/16 Docusate Sodium [Colace 100 mg Capsule] 100 mg PO Q12 10/25/16 Furosemide [Lasix] 60 mg PO QAM 10/25/16 Metoprolol Succinate [Toprol Xl 25 mg Tab.sr] 12.5 mg PO QAM 10/25/16 Nitroglycerin [Nitrostat] 0.4 mg SL Q5MP PRN MDD 3 TABLETS 10/25/16 Pantoprazole Sodium [Protonix] 20 mg PO Q6AM 10/25/16 Ammonium Lactate [Lac-Hydrin 12% Lotion 225Gm/Bottle] 1 applic TP Q12HP PRN Apixaban [Eliquis 2.5 mg Tablet] 2.5 mg PO Q12 11/12/17 Cranberry Fruit Extract [Cranberry 500 mg Capsule] 500 mg PO QAM 11/12/17 Insulin Aspart [Novolog Insulin 100 Unit/1 ml 10 ml] 0 unit SUBCUT ACHS Insulin Detemir [Levemir Flextouch] 10 unit SQ QAM 11/12/17 Ipratropium/Albuterol Sulfate [Duoneb 3 ml Ampul] 3 ml NEB RTQ4HP PRN 11/12/17 Linagliptin [Tradjenta] 5 mg PO QAM 11/12/17 Nystatin [Mycostatin Topical Powder 15 gm] 1 applic TP BID MDD APPLY TO GROIN Clotrimazole 1% Cream [Lotrimin 1% Cream 15 gm] 1 applic TP BID tube 11/26/17 Valsartan [Diovan 80 mg Tablet] 80 mg PO DAILY #30 tablet 11/26/17 Acetaminophen [Tylenol 325 mg Tablet] 650 mg PO Q4HP PRN 12/03/17 Folic Acid [Folvite 1 mg Tablet] 1 mg PO DAILY 12/03/17 Allergies/Adverse Reactions: ciprofloxacin [Ciprofloxacin] Allergy (Severe, Verified 11/12/17 11:04) skin turned red, developed sores Review of Systems ROS unobtainable: Due to mental status All systems: as per PMH Physical Exam Vital Signs: Temp Pulse Resp BP Pulse Ox 25 H 102/70 97 12/03/17 11:15 12/03/17 11:15 12/03/17 11:15 Physical Exam: Patient is not verbally engaging but withdraw to painful stimuli General appearance: PRESENT: no acute distress Head exam: PRESENT: atraumatic, normocephalic Eye exam: PRESENT: conjunctiva pink, PERRLA. ABSENT: scleral icterus Mouth exam: PRESENT: moist - fairly Neck exam: PRESENT: full ROM. ABSENT: carotid bruit, JVD, lymphadenopathy, thyromegaly Respiratory exam: PRESENT: clear to auscultation denita, decreased breath sounds - at lung bases Cardiovascular exam: PRESENT: RRR. ABSENT: diastolic murmur, rubs, systolic murmur Pulses: PRESENT: +1 pedal pulses bilateral Vascular exam: PRESENT: normal capillary refill. ABSENT: pallor GI/Abdominal exam: PRESENT: normal bowel sounds, soft. ABSENT: distended, guarding, mass, organolmegaly, rebound, tenderness Rectal exam: PRESENT: deferred Gentrourinary exam: PRESENT: indwelling catheter - suprapubic site satisfactory Extremities exam: ABSENT: pedal edema Musculoskeletal exam: PRESENT: deformity - related to joint involvenment with arthritis Neurological exam: PRESENT: altered - not verbally engaging at the time of my evaluation but withdraw appropriately to painful stimuli Psychiatric exam: ABSENT: agitated Skin exam: PRESENT: dry, warm Results Laboratory Results: I reviewed his laboratory results on [employer] and form significant part of my medical decision making. Impressions: Chest X-Ray 12/03/17 02:18 IMPRESSION: Persistent small right pleural effusion with adjacent right basilar atelectasis or pneumonia. Head CT 12/03/17 02:18 IMPRESSION: No acute intracranial abnormality TECHNICAL DOCUMENTATION: Quality ID # 436: Final reports with documentation of one or more dose reduction techniques (e.g., Automated exposure control, adjustment of the mA and/or kV according to patient size, use of iterative reconstruction technique) 2010 [employer]- All Rights Reserved Assessment & Plan - Diagnosis (1) Altered mental status Qualifiers: Altered mental status type: unspecified Qualified Code(s): R41.82 - Altered mental status, unspecified Is this a current diagnosis for this admission?: Yes Plan: See admitting attending physician orders. (2) Acute bilateral obstructive uropathy Is this a current diagnosis for this admission?: Yes Plan: See admitting attending physician orders. (3) Catheter-associated urinary tract infection Qualifiers: Indwelling urinary catheter type: cystostomy catheter Encounter type: initial encounter Qualified Code(s): T83.510A - Infection and inflammatory reaction due to cystostomy catheter, initial encounter; N39.0 - Urinary tract infection, site not specified; N39.0 - Urinary tract infection, site not specified Is this a current diagnosis for this admission?: Yes Plan: See admitting attending physician orders. (4) Acute kidney injury Is this a current diagnosis for this admission?: Yes Plan: See admitting attending physician orders. (5) Diabetes mellitus type 2 in nonobese Is this a current diagnosis for this admission?: Yes Plan: See admitting attending physician orders. (6) Chronic atrial fibrillation Is this a current diagnosis for this admission?: Yes Plan: See admitting attending physician orders. (7) Hypertension Qualifiers: Hypertension type: essential hypertension Qualified Code(s): I10 - Essential (primary) hypertension Is this a current diagnosis for this admission?: Yes Plan: See admitting attending physician orders. (8) Congestive heart failure Qualifiers: Qualified Code(s): I50.22 - Chronic systolic (congestive) heart failure Is this a current diagnosis for this admission?: Yes Plan: See admitting attending physician orders. (9) Coronary artery disease Qualifiers: Coronary Disease-Associated Artery/Lesion type: unspecified vessel or lesion type Is this a current diagnosis for this admission?: Yes Plan: See admitting attending physician orders. - Time Time Spent: 50 to 70 Minutes Medications reviewed and adjusted accordingly: Yes Anticipated discharge: SNF Within: Other - Inpatient Certification Based on my medical assessment, after consideration of the patient's comorbidities, presenting symptoms, or acuity I expect that the services needed warrant INPATIENT care.: Yes I certify that my determination is in accordance with my understanding of Medicare's requirements for reasonable and necessary INPATIENT services [42 CFR 412.3e].: Yes Medical Necessity: Need Close Monitoring Due to Risk of Patient Decompensation, Need For IV Fluids, Need For Continuous Telemetry Monitoring, Need for IV Antibiotics, Risk of Complication if Not Cared For in Hospital Post Hospital Care: D/C or Transfer Summary - Plan Summary Plan Summary: See admitting attending physician orders.
[2017-12-03] MEDS: NORMAL SALINE 1000 ML 1,000 ML IV PRN (12:55)
[2017-12-03] MEDS: NYSTATIN TOPICAL POWDER 15 GM TP SCH (19:48)
[2017-12-03] MEDS: CLOTRIMAZOLE 1% CREAM 15 GM TP SCH (19:48)
[2017-12-03] MEDS: DOCUSATE SODIUM 100 MG CAPSULE PO SCH (21:20)
[2017-12-03] MEDS: APIXABAN 2.5 MG TABLET PO SCH (21:21)
[2017-12-04] MEDS: LANSOPRAZOLE 30 MG TAB.RAP.DR PO SCH (05:31)
[2017-12-04] MEDS ORDERED: (PENDING PHARMACY ID) (Linagliptin [Tradjenta] 5 MG) PO SCH (08:00)
[2017-12-04] MEDS: METOPROLOL SUCCINATE 25 MG TAB.SR.24H PO SCH (08:59)
[2017-12-04] MEDS: AMIODARONE HCL 200 MG TABLET PO SCH (09:00)
[2017-12-04] MEDS: CITALOPRAM HYDROBROMIDE 20 MG TABLET PO SCH (09:00)
[2017-12-04] MEDS: INSULIN DETEMIR 100 UNIT/ML 3 ML PEN SUBCUT SCH (09:02)
[2017-12-04] MEDS ORDERED: CEFTRIAXONE 1 GM/D5W RTU 1 GM/50 ML RTUPB IV SCH (10:00)
[2017-12-04] MEDS: SITAGLIPTIN PHOSPHATE 50 MG TABLET PO SCH (10:41)
[2017-12-04] MEDS: CEFTRIAXONE SODIUM 1,000 MG in DEXTROSE 5%-WATER 50 ML IV SCH (10:41)
[2017-12-04] MEDS: APIXABAN 2.5 MG TABLET PO SCH ×2 (10:42→21:30)
[2017-12-04] MEDS: VALSARTAN 80 MG TABLET PO SCH (10:42)
[2017-12-04] MEDS: DOCUSATE SODIUM 100 MG CAPSULE PO SCH ×2 (10:42→21:27)
[2017-12-04] MEDS: CLOTRIMAZOLE 1% CREAM 15 GM TP SCH ×2 (10:42→18:22)
[2017-12-04] MEDS: NYSTATIN TOPICAL POWDER 15 GM TP SCH ×2 (10:43→18:23)
[2017-12-04] MEDS: FOLIC ACID 1 MG TABLET PO SCH (10:43)
--- NOTE | 2017-12-04 16:31 | PDOC PROGRESS REPORT ---
Subjective Progress Note for:: 12/04/17 Subjective:: Patient is more lucid and verbally communicating today. Family at bedside. Denied any chest pain or difficulty with breathing. No nausea, vomiting or abdominal pain. Oral intake remain a challenge. Reason For Visit: ACUTE OBSTRUCTIVE UROPATHY, ACUTE KIDNEY INJURY Physical Exam Vital Signs: Temp Pulse Resp BP Pulse Ox 98.4 F 59 L 18 135/66 H 97 12/04/17 12:00 12/04/17 16:25 12/04/17 16:25 12/04/17 12:00 12/04/17 16:25 Intake & Output 12/03/17 12/04/17 12/05/17 06:59 06:59 06:59 Intake Total 1800 Output Total 1100 Balance 700 Weight 71.9 kg General appearance: PRESENT: no acute distress Head exam: PRESENT: atraumatic, normocephalic Eye exam: PRESENT: conjunctiva pink, EOMI, PERRLA. ABSENT: scleral icterus Mouth exam: PRESENT: moist, tongue midline Respiratory exam: PRESENT: clear to auscultation denita Cardiovascular exam: PRESENT: RRR. ABSENT: diastolic murmur, rubs, systolic murmur Vascular exam: PRESENT: normal capillary refill. ABSENT: pallor GI/Abdominal exam: PRESENT: normal bowel sounds, soft. ABSENT: distended, guarding, mass, organolmegaly, rebound, tenderness Gentrourinary exam: PRESENT: indwelling catheter - suprapubic catheter Extremities exam: ABSENT: pedal edema Musculoskeletal exam: PRESENT: deformity - related to multiple joints involvment with arthritis Neurological exam: PRESENT: alert, awake, oriented to person, oriented to place , oriented to time, oriented to situation, CN II-XII grossly intact. ABSENT: motor sensory deficit Psychiatric exam: PRESENT: appropriate affect, normal mood. ABSENT: homicidal ideation, suicidal ideation Skin exam: PRESENT: dry, warm Results Impressions: Chest X-Ray 12/03/17 02:18 IMPRESSION: Persistent small right pleural effusion with adjacent right basilar atelectasis or pneumonia. Head CT 12/03/17 02:18 IMPRESSION: No acute intracranial abnormality TECHNICAL DOCUMENTATION: Quality ID # 436: Final reports with documentation of one or more dose reduction techniques (e.g., Automated exposure control, adjustment of the mA and/or kV according to patient size, use of iterative reconstruction technique) 2010 [employer]- All Rights Reserved Assessment & Plan - Diagnosis (1) Altered mental status Qualifiers: Altered mental status type: unspecified Qualified Code(s): R41.82 - Altered mental status, unspecified Is this a current diagnosis for this admission?: Yes (2) Acute bilateral obstructive uropathy Is this a current diagnosis for this admission?: Yes (3) Catheter-associated urinary tract infection Qualifiers: Indwelling urinary catheter type: cystostomy catheter Encounter type: initial encounter Qualified Code(s): T83.510A - Infection and inflammatory reaction due to cystostomy catheter, initial encounter; N39.0 - Urinary tract infection, site not specified; N39.0 - Urinary tract infection, site not specified Is this a current diagnosis for this admission?: Yes (4) Acute kidney injury Is this a current diagnosis for this admission?: Yes (5) Diabetes mellitus type 2 in nonobese Is this a current diagnosis for this admission?: Yes (6) Chronic atrial fibrillation Is this a current diagnosis for this admission?: Yes (7) Hypertension Qualifiers: Hypertension type: essential hypertension Qualified Code(s): I10 - Essential (primary) hypertension Is this a current diagnosis for this admission?: Yes (8) Congestive heart failure Qualifiers: Qualified Code(s): I50.22 - Chronic systolic (congestive) heart failure Is this a current diagnosis for this admission?: Yes (9) Coronary artery disease Qualifiers: Coronary Disease-Associated Artery/Lesion type: unspecified vessel or lesion type Is this a current diagnosis for this admission?: Yes - Time Time Spent with patient: 25-34 minutes Medications reviewed and adjusted accordingly: Yes Anticipated discharge: SNF Within: Other - Inpatient Certification Based on my medical assessment, after consideration of the patient's comorbidities, presenting symptoms, or acuity I expect that the services needed warrant INPATIENT care.: Yes I certify that my determination is in accordance with my understanding of Medicare's requirements for reasonable and necessary INPATIENT services [42 CFR 412.3e].: Yes Medical Necessity: Need Close Monitoring Due to Risk of Patient Decompensation, Need For IV Fluids, Need For Continuous Telemetry Monitoring, Need for IV Antibiotics, Risk of Complication if Not Cared For in Hospital Post Hospital Care: D/C or Transfer Summary - Plan Summary Plan Summary: See covering attending physician orders.
[2017-12-04] MEDS: NORMAL SALINE 1000 ML 1,000 ML IV PRN (21:30)
[2017-12-05] MEDS: LANSOPRAZOLE 30 MG TAB.RAP.DR PO SCH (05:36)
[2017-12-05] MEDS: NORMAL SALINE 1000 ML 1,000 ML IV PRN (05:38)
[2017-12-05] MEDS: CEFTRIAXONE SODIUM 1,000 MG in DEXTROSE 5%-WATER 50 ML IV SCH (10:03)
[2017-12-05] MEDS: APIXABAN 2.5 MG TABLET PO SCH ×2 (10:04→21:32)
[2017-12-05] MEDS: VALSARTAN 80 MG TABLET PO SCH (10:06)
[2017-12-05] MEDS: SITAGLIPTIN PHOSPHATE 50 MG TABLET PO SCH (10:07)
[2017-12-05] MEDS: FOLIC ACID 1 MG TABLET PO SCH (10:07)
[2017-12-05] MEDS: METOPROLOL SUCCINATE 25 MG TAB.SR.24H PO SCH (10:08)
[2017-12-05] MEDS: DOCUSATE SODIUM 100 MG CAPSULE PO SCH ×2 (10:08→21:32)
[2017-12-05] MEDS: CITALOPRAM HYDROBROMIDE 20 MG TABLET PO SCH (10:08)
[2017-12-05] MEDS: AMIODARONE HCL 200 MG TABLET PO SCH (10:08)
[2017-12-05] MEDS: INSULIN DETEMIR 100 UNIT/ML 3 ML PEN SUBCUT SCH (10:16)
[2017-12-05] MEDS: NYSTATIN TOPICAL POWDER 15 GM TP SCH ×2 (10:17→18:22)
[2017-12-05] MEDS: CLOTRIMAZOLE 1% CREAM 15 GM TP SCH ×2 (10:21→18:22)
--- NOTE | 2017-12-05 21:47 | PDOC PROGRESS REPORT ---
Subjective Progress Note for:: 12/05/17 Subjective:: Patient with recurrent UTI due to chronic indwelling Roman catheter, he was admitted for evaluation of altered mental status Reason For Visit: ACUTE OBSTRUCTIVE UROPATHY, ACUTE KIDNEY INJURY Physical Exam Vital Signs: Temp Pulse Resp BP Pulse Ox 98.5 F 59 L 18 129/78 H 99 12/05/17 19:28 12/05/17 19:28 12/05/17 19:28 12/05/17 19:28 12/05/17 19:28 Intake & Output 12/04/17 12/05/17 12/06/17 06:59 06:59 06:59 Intake Total 1800 3120 1990 Output Total 1100 1100 300 Balance 700 2020 1690 Weight 71.9 kg 69.5 kg General appearance: PRESENT: no acute distress Eye exam: PRESENT: PERRLA Respiratory exam: PRESENT: clear to auscultation denita Cardiovascular exam: PRESENT: +S1, +S2 GI/Abdominal exam: PRESENT: soft Neurological exam: PRESENT: alert Results Impressions: Chest X-Ray 12/03/17 02:18 IMPRESSION: Persistent small right pleural effusion with adjacent right basilar atelectasis or pneumonia. Head CT 12/03/17 02:18 IMPRESSION: No acute intracranial abnormality TECHNICAL DOCUMENTATION: Quality ID # 436: Final reports with documentation of one or more dose reduction techniques (e.g., Automated exposure control, adjustment of the mA and/or kV according to patient size, use of iterative reconstruction technique) 2010 [employer]- All Rights Reserved Assessment & Plan - Diagnosis (1) Catheter-associated urinary tract infection Qualifiers: Indwelling urinary catheter type: cystostomy catheter Encounter type: initial encounter Qualified Code(s): T83.510A - Infection and inflammatory reaction due to cystostomy catheter, initial encounter; N39.0 - Urinary tract infection, site not specified; N39.0 - Urinary tract infection, site not specified Is this a current diagnosis for this admission?: Yes Plan: Continue IV antibiotic (2) Coronary artery disease Qualifiers: Coronary Disease-Associated Artery/Lesion type: unspecified vessel or lesion type Is this a current diagnosis for this admission?: Yes (4) Obstructed suprapubic catheter Qualifiers: Encounter type: initial encounter Qualified Code(s): T83.090A - Other mechanical complication of cystostomy catheter, initial encounter Is this a current diagnosis for this admission?: Yes
[2017-12-06] MEDS: LANSOPRAZOLE 30 MG TAB.RAP.DR PO SCH (05:05)
[2017-12-06] MEDS: CEFTRIAXONE SODIUM 1,000 MG in DEXTROSE 5%-WATER 50 ML IV SCH (10:27)
[2017-12-06] MEDS: VALSARTAN 80 MG TABLET PO SCH (10:29)
[2017-12-06] MEDS: METOPROLOL SUCCINATE 25 MG TAB.SR.24H PO SCH (10:30)
[2017-12-06] MEDS: DOCUSATE SODIUM 100 MG CAPSULE PO SCH ×3 (10:30→23:46)
[2017-12-06] MEDS: APIXABAN 2.5 MG TABLET PO SCH ×2 (10:30→21:36)
[2017-12-06] MEDS: AMIODARONE HCL 200 MG TABLET PO SCH (10:30)
[2017-12-06] MEDS: SITAGLIPTIN PHOSPHATE 50 MG TABLET PO SCH (10:30)
[2017-12-06] MEDS: FOLIC ACID 1 MG TABLET PO SCH (10:30)
[2017-12-06] MEDS: CITALOPRAM HYDROBROMIDE 20 MG TABLET PO SCH (10:31)
[2017-12-06] MEDS: INSULIN DETEMIR 100 UNIT/ML 3 ML PEN SUBCUT SCH (10:32)
[2017-12-06] MEDS: NYSTATIN TOPICAL POWDER 15 GM TP SCH ×2 (10:36→19:31)
[2017-12-06] MEDS: CLOTRIMAZOLE 1% CREAM 15 GM TP SCH ×2 (10:36→19:32)
--- NOTE | 2017-12-06 21:04 | PDOC PROGRESS REPORT ---
Subjective Progress Note for:: 12/06/17 Subjective:: Patient was seen by the bedside, urine culture grew Pseudomonas Reason For Visit: ACUTE OBSTRUCTIVE UROPATHY, ACUTE KIDNEY INJURY Physical Exam Vital Signs: Temp Pulse Resp BP Pulse Ox 98.0 F 95 17 138/77 H 96 12/06/17 16:32 12/06/17 19:00 12/06/17 16:32 12/06/17 16:32 12/06/17 16:32 Intake & Output 12/05/17 12/06/17 12/07/17 06:59 06:59 06:59 Intake Total 3120 3190 1560 Output Total 1100 800 320 Balance 2020 2390 1240 Weight 69.5 kg 69 kg General appearance: PRESENT: no acute distress Eye exam: PRESENT: PERRLA Respiratory exam: PRESENT: clear to auscultation denita Cardiovascular exam: PRESENT: +S1, +S2 GI/Abdominal exam: PRESENT: soft Neurological exam: PRESENT: alert Results Impressions: Chest X-Ray 12/03/17 02:18 IMPRESSION: Persistent small right pleural effusion with adjacent right basilar atelectasis or pneumonia. Head CT 12/03/17 02:18 IMPRESSION: No acute intracranial abnormality TECHNICAL DOCUMENTATION: Quality ID # 436: Final reports with documentation of one or more dose reduction techniques (e.g., Automated exposure control, adjustment of the mA and/or kV according to patient size, use of iterative reconstruction technique) 2010 [employer]- All Rights Reserved Assessment & Plan - Diagnosis (1) Pseudomonas urinary tract infection Is this a current diagnosis for this admission?: Yes Plan: Continue IV antibiotic (2) Chronic atrial fibrillation Is this a current diagnosis for this admission?: Yes (3) Diabetes mellitus type 2 in nonobese Is this a current diagnosis for this admission?: Yes (4) Catheter-associated urinary tract infection Qualifiers: Indwelling urinary catheter type: cystostomy catheter Encounter type: initial encounter Qualified Code(s): T83.510A - Infection and inflammatory reaction due to cystostomy catheter, initial encounter; N39.0 - Urinary tract infection, site not specified; N39.0 - Urinary tract infection, site not specified Is this a current diagnosis for this admission?: Yes (5) Obstructed suprapubic catheter Qualifiers: Encounter type: initial encounter Qualified Code(s): T83.090A - Other mechanical complication of cystostomy catheter, initial encounter Is this a current diagnosis for this admission?: Yes
[2017-12-06] MEDS ORDERED: FUROSEMIDE INJ/PF 40 MG/4 ML SDV ONE (21:52)
[2017-12-06] MEDS ORDERED: IPRATROPIUM/ALBUTEROL 0.5-2.5 MG/3 ML AMPUL NEB PRN (21:55)
[2017-12-06] MEDS ORDERED: FUROSEMIDE INJ/PF 40 MG/4 ML SDV IV ONE (22:30)
[2017-12-06 22:35] LABS: ARTERIAL BLOOD H2CO3 1.27 mmol/L (1.05-1.35); ARTERIAL BLOOD HCO3 22.6 mmol/L (20-26); ARTERIAL BLOOD O2 SATURATION 93.3 % (94-98); ARTERIAL BLOOD PCO2 42.2 mmHg (35-45); ARTERIAL BLOOD PH 7.35 (7.35-7.45); ARTERIAL BLOOD PO2 70.2 mmHg (80-100); ARTERIAL BLOOD TOTAL CO2 23.9 mmol/L (23-27)
[2017-12-06 22:36] LABS: ARTERIAL BLOOD FIO2 1L
[2017-12-07] MEDS: LANSOPRAZOLE 30 MG TAB.RAP.DR PO SCH (05:17)
[2017-12-07] MEDS: AMIODARONE HCL 200 MG TABLET PO SCH (10:17)
[2017-12-07] MEDS: APIXABAN 2.5 MG TABLET PO SCH ×2 (10:17→23:09)
[2017-12-07] MEDS: DOCUSATE SODIUM 100 MG CAPSULE PO SCH ×2 (10:17→23:09)
[2017-12-07] MEDS: CITALOPRAM HYDROBROMIDE 20 MG TABLET PO SCH (10:17)
[2017-12-07] MEDS: INSULIN DETEMIR 100 UNIT/ML 3 ML PEN SUBCUT SCH (10:23)
[2017-12-07] MEDS: METOPROLOL SUCCINATE 25 MG TAB.SR.24H PO SCH (10:24)
[2017-12-07] MEDS: SITAGLIPTIN PHOSPHATE 50 MG TABLET PO SCH (10:31)
[2017-12-07] MEDS: CEFTRIAXONE SODIUM 1,000 MG in DEXTROSE 5%-WATER 50 ML IV SCH (10:31)
[2017-12-07] MEDS: FOLIC ACID 1 MG TABLET PO SCH (10:31)
[2017-12-07] MEDS: VALSARTAN 80 MG TABLET PO SCH (10:31)
[2017-12-07] MEDS: CLOTRIMAZOLE 1% CREAM 15 GM TP SCH ×2 (10:32→17:06)
[2017-12-07] MEDS: NYSTATIN TOPICAL POWDER 15 GM TP SCH ×2 (10:36→17:05)
--- NOTE | 2017-12-07 20:49 | PDOC PROGRESS REPORT ---
Subjective Progress Note for:: 12/07/17 Subjective:: Patient continues to manifest signs of confusion, family is frustrated about patient's condition, I explained to them that he has increased risk of infection especially UTI because of indwelling suprapubic catheter the reason for confusion is most likely from infection. Patient presently on IV ceftriaxone the antibiotic sensitivity for the Pseudomonas was not reported for ceftriaxone Reason For Visit: ACUTE OBSTRUCTIVE UROPATHY, ACUTE KIDNEY INJURY Physical Exam Vital Signs: Temp Pulse Resp BP Pulse Ox 97.3 F 116 H 17 135/88 H 95 12/07/17 14:58 12/07/17 14:58 12/07/17 14:58 12/07/17 14:58 12/07/17 14:58 Intake & Output 12/06/17 12/07/17 12/08/17 06:59 06:59 06:59 Intake Total 3190 1897 355 Output Total 800 1220 Balance 2390 677 355 Weight 69 kg 68.5 kg General appearance: PRESENT: no acute distress Eye exam: PRESENT: PERRLA Respiratory exam: PRESENT: clear to auscultation denita Cardiovascular exam: PRESENT: +S1, +S2 GI/Abdominal exam: PRESENT: soft Neurological exam: PRESENT: alert Results Laboratory Results: 12/06/17 22:15 Carbonic Acid 1.27 HCO3/H2CO3 Ratio 17:1 ABG pH 7.35 ABG pCO2 42.2 ABG pO2 70.2 L ABG HCO3 22.6 ABG O2 Saturation 93.3 L ABG Base Excess -3.0 FiO2 1L Impressions: Chest X-Ray 12/03/17 02:18 IMPRESSION: Persistent small right pleural effusion with adjacent right basilar atelectasis or pneumonia. Head CT 12/03/17 02:18 IMPRESSION: No acute intracranial abnormality TECHNICAL DOCUMENTATION: Quality ID # 436: Final reports with documentation of one or more dose reduction techniques (e.g., Automated exposure control, adjustment of the mA and/or kV according to patient size, use of iterative reconstruction technique) 2010 [employer]- All Rights Reserved Assessment & Plan - Diagnosis (1) Pseudomonas urinary tract infection Is this a current diagnosis for this admission?: Yes (2) Chronic atrial fibrillation Is this a current diagnosis for this admission?: Yes (3) Diabetes mellitus type 2 in nonobese Is this a current diagnosis for this admission?: Yes (4) Catheter-associated urinary tract infection Qualifiers: Indwelling urinary catheter type: cystostomy catheter Encounter type: initial encounter Qualified Code(s): T83.510A - Infection and inflammatory reaction due to cystostomy catheter, initial encounter; N39.0 - Urinary tract infection, site not specified; N39.0 - Urinary tract infection, site not specified Is this a current diagnosis for this admission?: Yes (5) Obstructed suprapubic catheter Qualifiers: Encounter type: initial encounter Qualified Code(s): T83.090A - Other mechanical complication of cystostomy catheter, initial encounter Is this a current diagnosis for this admission?: Yes - Plan Summary Plan Summary: Continue treatment
[2017-12-08] MEDS: LANSOPRAZOLE 30 MG TAB.RAP.DR PO SCH (05:51)
[2017-12-08] MEDS: CITALOPRAM HYDROBROMIDE 20 MG TABLET PO SCH (08:42)
[2017-12-08] MEDS: METOPROLOL SUCCINATE 25 MG TAB.SR.24H PO SCH (08:42)
[2017-12-08] MEDS: AMIODARONE HCL 200 MG TABLET PO SCH (08:43)
[2017-12-08] MEDS: INSULIN DETEMIR 100 UNIT/ML 3 ML PEN SUBCUT SCH (08:44)
[2017-12-08] MEDS: SITAGLIPTIN PHOSPHATE 50 MG TABLET PO SCH (10:35)
[2017-12-08] MEDS: FOLIC ACID 1 MG TABLET PO SCH (10:35)
[2017-12-08] MEDS: DOCUSATE SODIUM 100 MG CAPSULE PO SCH ×2 (10:35→21:11)
[2017-12-08] MEDS: VALSARTAN 80 MG TABLET PO SCH (10:35)
[2017-12-08] MEDS: APIXABAN 2.5 MG TABLET PO SCH ×2 (10:35→21:11)
[2017-12-08] MEDS: CEFTRIAXONE SODIUM 1,000 MG in DEXTROSE 5%-WATER 50 ML IV SCH (10:38)
[2017-12-08] MEDS: CLOTRIMAZOLE 1% CREAM 15 GM TP SCH ×2 (10:40→18:37)
[2017-12-08] MEDS: NYSTATIN TOPICAL POWDER 15 GM TP SCH ×2 (10:40→18:37)
--- NOTE | 2017-12-08 20:58 | PDOC PROGRESS REPORT ---
Subjective Progress Note for:: 12/08/17 Subjective:: Patient is more responsive today Reason For Visit: ACUTE OBSTRUCTIVE UROPATHY, ACUTE KIDNEY INJURY Physical Exam Vital Signs: Temp Pulse Resp BP Pulse Ox 98.2 F 88 17 124/76 100 12/08/17 19:28 12/08/17 19:28 12/08/17 19:28 12/08/17 19:28 12/08/17 19:28 Intake & Output 12/07/17 12/08/17 12/09/17 06:59 06:59 06:59 Intake Total 1897 780 248 Output Total 1220 575 225 Balance 677 205 23 Weight 68.5 kg General appearance: PRESENT: no acute distress Eye exam: PRESENT: PERRLA Respiratory exam: PRESENT: clear to auscultation denita Cardiovascular exam: PRESENT: +S1, +S2 GI/Abdominal exam: PRESENT: soft Neurological exam: PRESENT: alert Results Impressions: Chest X-Ray 12/03/17 02:18 IMPRESSION: Persistent small right pleural effusion with adjacent right basilar atelectasis or pneumonia. Head CT 12/03/17 02:18 IMPRESSION: No acute intracranial abnormality TECHNICAL DOCUMENTATION: Quality ID # [id number]: Final reports with documentation of one or more dose reduction techniques (e.g., Automated exposure control, adjustment of the mA and/or kV according to patient size, use of iterative reconstruction technique) 2010 [employer]- All Rights Reserved Assessment & Plan - Diagnosis (1) Pseudomonas urinary tract infection Is this a current diagnosis for this admission?: Yes (2) Chronic atrial fibrillation Is this a current diagnosis for this admission?: Yes (3) Diabetes mellitus type 2 in nonobese Is this a current diagnosis for this admission?: Yes (4) Catheter-associated urinary tract infection Qualifiers: Indwelling urinary catheter type: cystostomy catheter Encounter type: initial encounter Qualified Code(s): T83.510A - Infection and inflammatory reaction due to cystostomy catheter, initial encounter; N39.0 - Urinary tract infection, site not specified; N39.0 - Urinary tract infection, site not specified Is this a current diagnosis for this admission?: Yes (5) Obstructed suprapubic catheter Qualifiers: Encounter type: initial encounter Qualified Code(s): T83.090A - Other mechanical complication of cystostomy catheter, initial encounter Is this a current diagnosis for this admission?: Yes
[2017-12-09] MEDS: LANSOPRAZOLE 30 MG TAB.RAP.DR PO SCH (05:21)
[2017-12-09] MEDS: VALSARTAN 80 MG TABLET PO SCH (10:38)
[2017-12-09] MEDS: APIXABAN 2.5 MG TABLET PO SCH ×2 (10:39→22:00)
[2017-12-09] MEDS: DOCUSATE SODIUM 100 MG CAPSULE PO SCH ×2 (10:39→21:59)
[2017-12-09] MEDS: SITAGLIPTIN PHOSPHATE 50 MG TABLET PO SCH (10:39)
[2017-12-09] MEDS: METOPROLOL SUCCINATE 25 MG TAB.SR.24H PO SCH (10:39)
[2017-12-09] MEDS: FOLIC ACID 1 MG TABLET PO SCH (10:40)
[2017-12-09] MEDS: AMIODARONE HCL 200 MG TABLET PO SCH (10:40)
[2017-12-09] MEDS: INSULIN DETEMIR 100 UNIT/ML 3 ML PEN SUBCUT SCH (10:40)
[2017-12-09] MEDS: CITALOPRAM HYDROBROMIDE 20 MG TABLET PO SCH (10:40)
[2017-12-09] MEDS: NYSTATIN TOPICAL POWDER 15 GM TP SCH ×2 (10:41→17:59)
[2017-12-09] MEDS: CLOTRIMAZOLE 1% CREAM 15 GM TP SCH ×2 (10:41→17:58)
[2017-12-09] MEDS: CEFTRIAXONE SODIUM 1,000 MG in DEXTROSE 5%-WATER 50 ML IV SCH (10:50)
--- NOTE | 2017-12-09 21:03 | PDOC PROGRESS REPORT ---
Subjective Progress Note for:: 12/09/17 Subjective:: Patient is alert the antibiotic was changed to Cipro but he supposedly allergic to Cipro, changed to cefepime Reason For Visit: ACUTE OBSTRUCTIVE UROPATHY, ACUTE KIDNEY INJURY Physical Exam Vital Signs: Temp Pulse Resp BP Pulse Ox 97.5 F 79 12 114/59 L 100 12/09/17 20:00 12/09/17 20:00 12/09/17 20:00 12/09/17 20:00 12/09/17 20:00 Intake & Output 12/08/17 12/09/17 12/10/17 06:59 06:59 06:59 Intake Total 780 578 355 Output Total 575 575 Balance 205 3 355 Weight 68.4 kg General appearance: PRESENT: no acute distress Eye exam: PRESENT: PERRLA Respiratory exam: PRESENT: clear to auscultation denita Cardiovascular exam: PRESENT: +S1, +S2 GI/Abdominal exam: PRESENT: soft Results Laboratory Results: 12/03/17 23:13 Blood Blood Culture - Final NO GROWTH IN 5 DAYS 12/03/17 23:08 Blood Blood Culture - Final NO GROWTH IN 5 DAYS Impressions: Chest X-Ray 12/03/17 02:18 IMPRESSION: Persistent small right pleural effusion with adjacent right basilar atelectasis or pneumonia. Head CT 12/03/17 02:18 IMPRESSION: No acute intracranial abnormality TECHNICAL DOCUMENTATION: Quality ID # [id number]: Final reports with documentation of one or more dose reduction techniques (e.g., Automated exposure control, adjustment of the mA and/or kV according to patient size, use of iterative reconstruction technique) 2010 [employer]- All Rights Reserved Assessment & Plan - Diagnosis (1) Pseudomonas urinary tract infection Is this a current diagnosis for this admission?: Yes (2) Chronic atrial fibrillation Is this a current diagnosis for this admission?: Yes (3) Diabetes mellitus type 2 in nonobese Is this a current diagnosis for this admission?: Yes (4) Catheter-associated urinary tract infection Qualifiers: Indwelling urinary catheter type: cystostomy catheter Encounter type: initial encounter Qualified Code(s): T83.510A - Infection and inflammatory reaction due to cystostomy catheter, initial encounter; N39.0 - Urinary tract infection, site not specified; N39.0 - Urinary tract infection, site not specified Is this a current diagnosis for this admission?: Yes (5) Obstructed suprapubic catheter Qualifiers: Encounter type: initial encounter Qualified Code(s): T83.090A - Other mechanical complication of cystostomy catheter, initial encounter Is this a current diagnosis for this admission?: Yes
[2017-12-09] MEDS: CEFEPIME 1 GM/D5W RTU 1 GM/50 ML RTUPB IV SCH (22:00)
[2017-12-10] MEDS: LANSOPRAZOLE 30 MG TAB.RAP.DR PO SCH (05:15)
[2017-12-10] MEDS: NYSTATIN TOPICAL POWDER 15 GM TP SCH (09:32)
[2017-12-10] MEDS: CLOTRIMAZOLE 1% CREAM 15 GM TP SCH (09:32)
[2017-12-10] MEDS: INSULIN DETEMIR 100 UNIT/ML 3 ML PEN SUBCUT SCH (09:34)
[2017-12-10] MEDS: CEFEPIME 1 GM/D5W RTU 1 GM/50 ML RTUPB IV SCH (09:35)
[2017-12-10] MEDS: DOCUSATE SODIUM 100 MG CAPSULE PO SCH ×2 (09:36→21:46)
[2017-12-10] MEDS: METOPROLOL SUCCINATE 25 MG TAB.SR.24H PO SCH (09:36)
[2017-12-10] MEDS: FOLIC ACID 1 MG TABLET PO SCH (09:37)
[2017-12-10] MEDS: VALSARTAN 80 MG TABLET PO SCH (09:37)
[2017-12-10] MEDS: CITALOPRAM HYDROBROMIDE 20 MG TABLET PO SCH (09:37)
[2017-12-10] MEDS: APIXABAN 2.5 MG TABLET PO SCH ×2 (09:37→21:46)
[2017-12-10] MEDS: SITAGLIPTIN PHOSPHATE 50 MG TABLET PO SCH (09:37)
[2017-12-10] MEDS: AMIODARONE HCL 200 MG TABLET PO SCH (09:37)
--- NOTE | 2017-12-10 15:19 | PDOC PROGRESS REPORT ---
Subjective Progress Note for:: 12/10/17 Subjective:: Patient was seen by the bedside he supposedly have allergy to Cipro but no family member could tell us exactly what symptoms he has to Cipro, I am not sure he has a true allergy syndrome, there is no rash, there is no bronchospasm or anaphylaxis, he has Pseudomonas UTI sensitive to Cipro and Levaquin intermediate sensitivity to cefepime Reason For Visit: ACUTE OBSTRUCTIVE UROPATHY, ACUTE KIDNEY INJURY Physical Exam Vital Signs: Temp Pulse Resp BP Pulse Ox 97.8 F 81 15 129/83 H 99 12/10/17 12:36 12/10/17 12:36 12/10/17 12:36 12/10/17 12:36 12/10/17 12:36 Intake & Output 12/09/17 12/10/17 12/11/17 06:59 06:59 06:59 Intake Total 578 712 Output Total 575 500 Balance 3 212 Weight 68.4 kg 67.2 kg General appearance: PRESENT: no acute distress Eye exam: PRESENT: PERRLA Respiratory exam: PRESENT: clear to auscultation denita Cardiovascular exam: PRESENT: +S1, +S2 GI/Abdominal exam: PRESENT: soft Neurological exam: PRESENT: alert Results Laboratory Results: 12/08/17 18:30 Catheterized Urine Urine Culture - Final Pseudomonas Aeruginosa Impressions: Chest X-Ray 12/03/17 02:18 IMPRESSION: Persistent small right pleural effusion with adjacent right basilar atelectasis or pneumonia. Head CT 12/03/17 02:18 IMPRESSION: No acute intracranial abnormality TECHNICAL DOCUMENTATION: Quality ID # 436: Final reports with documentation of one or more dose reduction techniques (e.g., Automated exposure control, adjustment of the mA and/or kV according to patient size, use of iterative reconstruction technique) 2010 [employer]- All Rights Reserved Assessment & Plan - Diagnosis (1) Pseudomonas urinary tract infection Is this a current diagnosis for this admission?: Yes Plan: Discontinue IV cefepime, start iv Cipro if patient tolerates Cipro then this will be transitioned to p.o. and hopefully transfer back to [facility] in 24 hours (2) Chronic atrial fibrillation Is this a current diagnosis for this admission?: Yes (3) Diabetes mellitus type 2 in nonobese Is this a current diagnosis for this admission?: Yes (4) Catheter-associated urinary tract infection Qualifiers: Indwelling urinary catheter type: cystostomy catheter Encounter type: initial encounter Qualified Code(s): T83.510A - Infection and inflammatory reaction due to cystostomy catheter, initial encounter; N39.0 - Urinary tract infection, site not specified; N39.0 - Urinary tract infection, site not specified Is this a current diagnosis for this admission?: Yes Plan: Change Roman catheter (5) Obstructed suprapubic catheter Qualifiers: Encounter type: initial encounter Qualified Code(s): T83.090A - Other mechanical complication of cystostomy catheter, initial encounter Is this a current diagnosis for this admission?: Yes
[2017-12-10] MEDS: CIPROFLOXACIN 400 MG/D5W RTU 400 MG/200 ML RTUPB IV SCH (17:55)
[2017-12-11] MEDS: CIPROFLOXACIN 400 MG/D5W RTU 400 MG/200 ML RTUPB IV SCH ×2 (05:24→18:01)
[2017-12-11] MEDS: LANSOPRAZOLE 30 MG TAB.RAP.DR PO SCH (05:25)
[2017-12-11] MEDS: INSULIN DETEMIR 100 UNIT/ML 3 ML PEN SUBCUT SCH (09:24)
[2017-12-11] MEDS: METOPROLOL SUCCINATE 25 MG TAB.SR.24H PO SCH (09:25)
[2017-12-11] MEDS: VALSARTAN 80 MG TABLET PO SCH (09:25)
[2017-12-11] MEDS: CITALOPRAM HYDROBROMIDE 20 MG TABLET PO SCH (09:25)
[2017-12-11] MEDS: FOLIC ACID 1 MG TABLET PO SCH (09:25)
[2017-12-11] MEDS: DOCUSATE SODIUM 100 MG CAPSULE PO SCH ×2 (09:26→22:34)
[2017-12-11] MEDS: SITAGLIPTIN PHOSPHATE 50 MG TABLET PO SCH (09:26)
[2017-12-11] MEDS: AMIODARONE HCL 200 MG TABLET PO SCH (09:26)
[2017-12-11] MEDS: APIXABAN 2.5 MG TABLET PO SCH ×2 (09:26→22:34)
--- NOTE | 2017-12-11 15:55 | PDOC PROGRESS REPORT ---
Subjective Progress Note for:: 12/11/17 Subjective:: Patient is seen by the bedside he is tolerating the IV Cipro, he has right upper extremity swelling Reason For Visit: ACUTE OBSTRUCTIVE UROPATHY, ACUTE KIDNEY INJURY Physical Exam Vital Signs: Temp Pulse Resp BP Pulse Ox 97.8 F 97 16 138/84 H 98 12/11/17 04:07 12/11/17 07:00 12/11/17 05:25 12/11/17 04:07 12/11/17 05:35 Intake & Output 12/10/17 12/11/17 12/12/17 06:59 06:59 06:59 Intake Total 712 986 Output Total 500 650 Balance 212 336 Weight 67.2 kg 71 kg General appearance: PRESENT: no acute distress Eye exam: PRESENT: PERRLA Respiratory exam: PRESENT: clear to auscultation denita Cardiovascular exam: PRESENT: +S1, +S2 GI/Abdominal exam: PRESENT: soft Neurological exam: PRESENT: alert, CN II-XII grossly intact Results Impressions: Chest X-Ray 12/03/17 02:18 IMPRESSION: Persistent small right pleural effusion with adjacent right basilar atelectasis or pneumonia. Head CT 12/03/17 02:18 IMPRESSION: No acute intracranial abnormality TECHNICAL DOCUMENTATION: Quality ID # 436: Final reports with documentation of one or more dose reduction techniques (e.g., Automated exposure control, adjustment of the mA and/or kV according to patient size, use of iterative reconstruction technique) 2010 [employer]- All Rights Reserved Assessment & Plan - Diagnosis (1) Pseudomonas urinary tract infection Is this a current diagnosis for this admission?: Yes (2) Chronic atrial fibrillation Is this a current diagnosis for this admission?: Yes (3) Diabetes mellitus type 2 in nonobese Is this a current diagnosis for this admission?: Yes (4) Catheter-associated urinary tract infection Qualifiers: Indwelling urinary catheter type: cystostomy catheter Encounter type: initial encounter Qualified Code(s): T83.510A - Infection and inflammatory reaction due to cystostomy catheter, initial encounter; N39.0 - Urinary tract infection, site not specified; N39.0 - Urinary tract infection, site not specified Is this a current diagnosis for this admission?: Yes (5) Obstructed suprapubic catheter Qualifiers: Encounter type: initial encounter Qualified Code(s): T83.090A - Other mechanical complication of cystostomy catheter, initial encounter Is this a current diagnosis for this admission?: Yes - Plan Summary Plan Summary: Continue treatment
[2017-12-12] MEDS: CIPROFLOXACIN 400 MG/D5W RTU 400 MG/200 ML RTUPB IV SCH ×2 (06:41→18:01)
[2017-12-12] MEDS: LANSOPRAZOLE 30 MG TAB.RAP.DR PO SCH (06:41)
[2017-12-12] MEDS: INSULIN DETEMIR 100 UNIT/ML 3 ML PEN SUBCUT SCH (08:59)
[2017-12-12] MEDS: METOPROLOL SUCCINATE 25 MG TAB.SR.24H PO SCH (09:00)
[2017-12-12] MEDS: AMIODARONE HCL 200 MG TABLET PO SCH (09:00)
[2017-12-12] MEDS: CITALOPRAM HYDROBROMIDE 20 MG TABLET PO SCH (09:02)
[2017-12-12] MEDS: VALSARTAN 80 MG TABLET PO SCH (10:28)
[2017-12-12] MEDS: SITAGLIPTIN PHOSPHATE 50 MG TABLET PO SCH (10:29)
[2017-12-12] MEDS: DOCUSATE SODIUM 100 MG CAPSULE PO SCH ×2 (10:29→21:59)
[2017-12-12] MEDS: FOLIC ACID 1 MG TABLET PO SCH (10:29)
[2017-12-12] MEDS: APIXABAN 2.5 MG TABLET PO SCH ×2 (10:31→21:59)
--- NOTE | 2017-12-12 16:40 | XCELERA REPORT ---
[address] [address] Upper Extremity Venous Evaluation Name: DAREK SIMON Age: 82 yrs Gender: Male : 1935 Patient Status: [facility] Study Date: 12/12/2017 01:34 PM Procedure: Unilateral duplex scan of the right upper extremity veins was performed, including responses to compression and other maneuvers. Reason For Study: RUE, Rajesh Ordering Physician: JOHN OSBORNE Performed By: Malick Carreno Right Side Venous Evaluation Soft tissue edema in forearm noted.. Normal vessel filling wall to wall, compression and augmentation as well as Colour flow down to the forearm veins. Interpretation Summary Normal compression, patency, spontaneous and phasic flow of the right upper extremity veins. : JOHN OSBORNE > Olivier Dickinson
[2017-12-13 05:07] LABS: ANION GAP 11 (5-19); BLOOD UREA NITROGEN 38 mg/dL (7-20); CALCIUM 9.6 mg/dL (8.4-10.2); CARBON DIOXIDE 25 mmol/L (22-30); CHLORIDE 110 mmol/L (98-107); GLUCOSE 134 mg/dL (75-110); POTASSIUM 4.6 mmol/L (3.6-5.0); SODIUM 145.5 mmol/L (137-145)
[2017-12-13] MEDS: LANSOPRAZOLE 30 MG TAB.RAP.DR PO SCH (06:12)
[2017-12-13] MEDS: CIPROFLOXACIN 400 MG/D5W RTU 400 MG/200 ML RTUPB IV SCH ×2 (06:12→18:46)
[2017-12-13] MEDS: CITALOPRAM HYDROBROMIDE 20 MG TABLET PO SCH (09:52)
[2017-12-13] MEDS: SITAGLIPTIN PHOSPHATE 50 MG TABLET PO SCH (09:52)
[2017-12-13] MEDS: VALSARTAN 80 MG TABLET PO SCH (09:52)
[2017-12-13] MEDS: DOCUSATE SODIUM 100 MG CAPSULE PO SCH ×2 (09:52→21:48)
[2017-12-13] MEDS: FOLIC ACID 1 MG TABLET PO SCH (09:52)
[2017-12-13] MEDS: METOPROLOL SUCCINATE 25 MG TAB.SR.24H PO SCH (09:53)
[2017-12-13] MEDS: AMIODARONE HCL 200 MG TABLET PO SCH (09:53)
[2017-12-13] MEDS: APIXABAN 2.5 MG TABLET PO SCH ×2 (09:53→21:48)
[2017-12-13] MEDS: INSULIN DETEMIR 100 UNIT/ML 3 ML PEN SUBCUT SCH (09:54)
[2017-12-13 21:30] LABS: ABSOLUTE BASOPHILS # (AUTO) 0.1 10^3/uL (0.0-0.2); ABSOLUTE EOSINOPHILS # (AUTO) 0.3 10^3/uL (0.0-0.6); ABSOLUTE MONOCYTES (AUTO) 0.9 10^3/uL (0.1-1.4); ABSOLUTE NEUT (AUTO) 6.7 10^3/uL (1.7-8.2); BASOPHILS % (AUTO) 0.8 % (0-2); EOSINOPHILS % (AUTO) 2.9 % (0-6); HEMATOCRIT 35.6 % (37.9-51.0); HEMOGLOBIN 11.3 g/dL (13.5-17.0); LYMPHOCYTES % (AUTO) 11.5 % (13-45); MEAN CORPUSCULAR HEMOGLOBIN 25.8 pg (27.0-33.4); MEAN CORPUSCULAR HGB CONC 31.8 g/dL (32.0-36.0); MEAN CORPUSCULAR VOLUME 81 fl (80-97); MONOCYTES % (AUTO) 9.7 % (3-13); PLATELET COUNT 208 10^3/uL (150-450); RED BLOOD COUNT 4.39 10^6/uL (4.35-5.55); RED CELL DISTRIBUTION WIDTH 18.1 % (11.5-14.0); SEGMENTED NEUTROPHILS % (AUTO) 75.1 % (42-78); TOTAL CELLS COUNTED % (AUTO) 100 %
--- NOTE | 2017-12-13 21:44 | PDOC PROGRESS REPORT ---
Subjective Progress Note for:: 12/12/17 Subjective:: Patient was seen by the bedside with family in the room, he has altered mental status, he would not open his eyes Reason For Visit: ACUTE OBSTRUCTIVE UROPATHY, ACUTE KIDNEY INJURY Physical Exam Vital Signs: Temp Pulse Resp BP Pulse Ox 97.5 F 106 H 17 113/76 95 12/13/17 20:00 12/13/17 20:00 12/13/17 20:00 12/13/17 20:00 12/13/17 20:00 Intake & Output 12/12/17 12/13/17 12/14/17 06:59 06:59 06:59 Intake Total 200 1398 400 Output Total 475 200 Balance 200 923 200 Weight 71.1 kg 70 kg Respiratory exam: PRESENT: clear to auscultation denita Cardiovascular exam: PRESENT: +S1, +S2 Results Laboratory Results: 12/13/17 21:22 12/13/17 04:30 12/13/17 12/13/17 04:30 21:22 WBC 9.0 RBC 4.39 Hgb 11.3 L Hct 35.6 L MCV 81 MCH 25.8 L MCHC 31.8 L RDW 18.1 H Plt Count 208 Seg Neutrophils % 75.1 Lymphocytes % 11.5 L Monocytes % 9.7 Eosinophils % 2.9 Basophils % 0.8 Absolute Neutrophils 6.7 Absolute Lymphocytes 1.0 Absolute Monocytes 0.9 Absolute Eosinophils 0.3 Absolute Basophils 0.1 Sodium 145.5 H Potassium 4.6 Chloride 110 H Carbon Dioxide 25 Anion Gap 11 BUN 38 H Creatinine 1.90 H Est GFR ( Amer) 41 L Est GFR (Non-Af Amer) 34 L Glucose 134 H Calcium 9.6 Impressions: Chest X-Ray 12/03/17 02:18 IMPRESSION: Persistent small right pleural effusion with adjacent right basilar atelectasis or pneumonia. Head CT 12/03/17 02:18 IMPRESSION: No acute intracranial abnormality TECHNICAL DOCUMENTATION: Quality ID # 436: Final reports with documentation of one or more dose reduction techniques (e.g., Automated exposure control, adjustment of the mA and/or kV according to patient size, use of iterative reconstruction technique) 2010 [employer]- All Rights Reserved Assessment & Plan - Diagnosis (1) Pseudomonas urinary tract infection Is this a current diagnosis for this admission?: Yes (2) Chronic atrial fibrillation Is this a current diagnosis for this admission?: Yes (3) Diabetes mellitus type 2 in nonobese Is this a current diagnosis for this admission?: Yes (4) Catheter-associated urinary tract infection Qualifiers: Indwelling urinary catheter type: cystostomy catheter Encounter type: initial encounter Qualified Code(s): T83.510A - Infection and inflammatory reaction due to cystostomy catheter, initial encounter; N39.0 - Urinary tract infection, site not specified; N39.0 - Urinary tract infection, site not specified Is this a current diagnosis for this admission?: Yes (5) Obstructed suprapubic catheter Qualifiers: Encounter type: initial encounter Qualified Code(s): T83.090A - Other mechanical complication of cystostomy catheter, initial encounter Is this a current diagnosis for this admission?: Yes
--- NOTE | 2017-12-13 21:45 | PDOC PROGRESS REPORT ---
Subjective Progress Note for:: 12/13/17 Subjective:: Patient was seen by the bedside he has decreased urine output. He has fluctuating sensorium Reason For Visit: ACUTE OBSTRUCTIVE UROPATHY, ACUTE KIDNEY INJURY Physical Exam Vital Signs: Temp Pulse Resp BP Pulse Ox 97.5 F 106 H 17 113/76 95 12/13/17 20:00 12/13/17 20:00 12/13/17 20:00 12/13/17 20:00 12/13/17 20:00 Intake & Output 12/12/17 12/13/17 12/14/17 06:59 06:59 06:59 Intake Total 200 1398 400 Output Total 475 200 Balance 200 923 200 Weight 71.1 kg 70 kg General appearance: PRESENT: no acute distress Eye exam: PRESENT: PERRLA Respiratory exam: PRESENT: clear to auscultation denita Cardiovascular exam: PRESENT: +S1, +S2 GI/Abdominal exam: PRESENT: soft Neurological exam: PRESENT: altered Results Laboratory Results: 12/13/17 21:22 12/13/17 04:30 12/13/17 12/13/17 04:30 21:22 WBC 9.0 RBC 4.39 Hgb 11.3 L Hct 35.6 L MCV 81 MCH 25.8 L MCHC 31.8 L RDW 18.1 H Plt Count 208 Seg Neutrophils % 75.1 Lymphocytes % 11.5 L Monocytes % 9.7 Eosinophils % 2.9 Basophils % 0.8 Absolute Neutrophils 6.7 Absolute Lymphocytes 1.0 Absolute Monocytes 0.9 Absolute Eosinophils 0.3 Absolute Basophils 0.1 Sodium 145.5 H Potassium 4.6 Chloride 110 H Carbon Dioxide 25 Anion Gap 11 BUN 38 H Creatinine 1.90 H Est GFR ( Amer) 41 L Est GFR (Non-Af Amer) 34 L Glucose 134 H Calcium 9.6 Impressions: Chest X-Ray 12/03/17 02:18 IMPRESSION: Persistent small right pleural effusion with adjacent right basilar atelectasis or pneumonia. Head CT 12/03/17 02:18 IMPRESSION: No acute intracranial abnormality TECHNICAL DOCUMENTATION: Quality ID # 436: Final reports with documentation of one or more dose reduction techniques (e.g., Automated exposure control, adjustment of the mA and/or kV according to patient size, use of iterative reconstruction technique) 2010 [employer]- All Rights Reserved Assessment & Plan - Diagnosis (1) Pseudomonas urinary tract infection Is this a current diagnosis for this admission?: Yes (2) Chronic atrial fibrillation Is this a current diagnosis for this admission?: Yes (3) Diabetes mellitus type 2 in nonobese Is this a current diagnosis for this admission?: Yes (4) Catheter-associated urinary tract infection Qualifiers: Indwelling urinary catheter type: cystostomy catheter Encounter type: initial encounter Qualified Code(s): T83.510A - Infection and inflammatory reaction due to cystostomy catheter, initial encounter; N39.0 - Urinary tract infection, site not specified; N39.0 - Urinary tract infection, site not specified Is this a current diagnosis for this admission?: Yes (5) Obstructed suprapubic catheter Qualifiers: Encounter type: initial encounter Qualified Code(s): T83.090A - Other mechanical complication of cystostomy catheter, initial encounter Is this a current diagnosis for this admission?: Yes (6) Metabolic encephalopathy Is this a current diagnosis for this admission?: Yes
[2017-12-14] MEDS: LANSOPRAZOLE 30 MG TAB.RAP.DR PO SCH (05:25)
[2017-12-14] MEDS: CIPROFLOXACIN 400 MG/D5W RTU 400 MG/200 ML RTUPB IV SCH ×2 (06:28→18:43)
[2017-12-14] MEDS: CITALOPRAM HYDROBROMIDE 20 MG TABLET PO SCH (08:28)
[2017-12-14] MEDS: AMIODARONE HCL 200 MG TABLET PO SCH (08:28)
[2017-12-14] MEDS: METOPROLOL SUCCINATE 25 MG TAB.SR.24H PO SCH (08:29)
[2017-12-14] MEDS: INSULIN DETEMIR 100 UNIT/ML 3 ML PEN SUBCUT SCH (08:29)
[2017-12-14] MEDS: FOLIC ACID 1 MG TABLET PO SCH (10:29)
[2017-12-14] MEDS: SITAGLIPTIN PHOSPHATE 50 MG TABLET PO SCH (10:29)
[2017-12-14] MEDS: DOCUSATE SODIUM 100 MG CAPSULE PO SCH ×2 (10:29→21:00)
[2017-12-14] MEDS: VALSARTAN 80 MG TABLET PO SCH (10:29)
[2017-12-14] MEDS: APIXABAN 2.5 MG TABLET PO SCH ×2 (10:29→21:00)
--- NOTE | 2017-12-14 16:14 | PDOC PROGRESS REPORT ---
Subjective Progress Note for:: 12/14/17 Subjective:: Patient was seen by the bedside, he has fluctuating sensorium, but he is more alert today, family in the room Reason For Visit: ACUTE OBSTRUCTIVE UROPATHY, ACUTE KIDNEY INJURY Physical Exam Vital Signs: Temp Pulse Resp BP Pulse Ox 97.3 F 108 H 20 146/69 H 100 12/14/17 11:43 12/14/17 11:43 12/14/17 11:43 12/14/17 11:43 12/14/17 11:43 Intake & Output 12/13/17 12/14/17 12/15/17 06:59 06:59 06:59 Intake Total 1398 650 200 Output Total 475 650 Balance 923 0 200 Weight 70 kg 69.4 kg General appearance: PRESENT: no acute distress Eye exam: PRESENT: PERRLA Respiratory exam: PRESENT: clear to auscultation denita Cardiovascular exam: PRESENT: +S1, +S2 GI/Abdominal exam: PRESENT: soft Neurological exam: PRESENT: alert Results Laboratory Results: 12/13/17 21:22 12/13/17 04:30 12/13/17 21:22 WBC 9.0 RBC 4.39 Hgb 11.3 L Hct 35.6 L MCV 81 MCH 25.8 L MCHC 31.8 L RDW 18.1 H Plt Count 208 Seg Neutrophils % 75.1 Lymphocytes % 11.5 L Monocytes % 9.7 Eosinophils % 2.9 Basophils % 0.8 Absolute Neutrophils 6.7 Absolute Lymphocytes 1.0 Absolute Monocytes 0.9 Absolute Eosinophils 0.3 Absolute Basophils 0.1 Impressions: Chest X-Ray 12/03/17 02:18 IMPRESSION: Persistent small right pleural effusion with adjacent right basilar atelectasis or pneumonia. Head CT 12/03/17 02:18 IMPRESSION: No acute intracranial abnormality TECHNICAL DOCUMENTATION: Quality ID # 436: Final reports with documentation of one or more dose reduction techniques (e.g., Automated exposure control, adjustment of the mA and/or kV according to patient size, use of iterative reconstruction technique) 2010 [employer]- All Rights Reserved Assessment & Plan - Diagnosis (1) Pseudomonas urinary tract infection Is this a current diagnosis for this admission?: Yes (2) Chronic atrial fibrillation Is this a current diagnosis for this admission?: Yes (3) Diabetes mellitus type 2 in nonobese Is this a current diagnosis for this admission?: Yes (4) Catheter-associated urinary tract infection Qualifiers: Indwelling urinary catheter type: cystostomy catheter Encounter type: initial encounter Qualified Code(s): T83.510A - Infection and inflammatory reaction due to cystostomy catheter, initial encounter; N39.0 - Urinary tract infection, site not specified; N39.0 - Urinary tract infection, site not specified Is this a current diagnosis for this admission?: Yes (5) Obstructed suprapubic catheter Qualifiers: Encounter type: initial encounter Qualified Code(s): T83.090A - Other mechanical complication of cystostomy catheter, initial encounter Is this a current diagnosis for this admission?: Yes (6) Metabolic encephalopathy Is this a current diagnosis for this admission?: Yes
--- NOTE | 2017-12-14 16:31 | RADIOLOGY REPORT (SQ) ---
EXAM DESCRIPTION: CHEST SINGLE VIEW COMPLETED DATE/TIME: 12/14/2017 4:12 pm REASON FOR STUDY: pneumonia COMPARISON: 12/03/2017. EXAM PARAMETERS: NUMBER OF VIEWS: One view. TECHNIQUE: Single frontal radiographic view of the chest acquired. RADIATION DOSE: NA LIMITATIONS: None. FINDINGS: LUNGS AND PLEURA: Very large right pleural effusion which has increased significantly sinc e the prior study. Airspace disease in the left lung base with left pleural effusion. MEDIASTINUM AND HILAR STRUCTURES: No masses. Contour normal. HEART AND VASCULAR STRUCTURES: Cardiomegaly. BONES: No acute findings. HARDWARE: Pacemaker. Hardware in the left shoulder. OTHER: No other significant finding. IMPRESSION: INTERVAL DEVELOPMENT OF A VERY LARGE RIGHT PLEURAL EFFUSION. SMALLER LEFT PLEURAL EFFUS ION WITH LEFT BASILAR ATELECTASIS VERSUS INFILTRATE. TECHNICAL DOCUMENTATION: JOB ID: [id number] [employer]- All Rights Reserved Reading location - IP/workstation name: [email or web address]
[2017-12-14 16:54] LABS: ABSOLUTE BASOPHILS # (AUTO) 0.1 10^3/uL (0.0-0.2); ABSOLUTE EOSINOPHILS # (AUTO) 0.2 10^3/uL (0.0-0.6); ABSOLUTE MONOCYTES (AUTO) 0.8 10^3/uL (0.1-1.4); ABSOLUTE NEUT (AUTO) 6.8 10^3/uL (1.7-8.2); BASOPHILS % (AUTO) 0.9 % (0-2); EOSINOPHILS % (AUTO) 2.6 % (0-6); HEMATOCRIT 35.9 % (37.9-51.0); HEMOGLOBIN 11.6 g/dL (13.5-17.0); LYMPHOCYTES % (AUTO) 11.2 % (13-45); MEAN CORPUSCULAR HEMOGLOBIN 25.8 pg (27.0-33.4); MEAN CORPUSCULAR HGB CONC 32.2 g/dL (32.0-36.0); MEAN CORPUSCULAR VOLUME 80 fl (80-97); MONOCYTES % (AUTO) 9.1 % (3-13); PLATELET COUNT 213 10^3/uL (150-450); RED BLOOD COUNT 4.48 10^6/uL (4.35-5.55); RED CELL DISTRIBUTION WIDTH 18.2 % (11.5-14.0); SEGMENTED NEUTROPHILS % (AUTO) 76.2 % (42-78); TOTAL CELLS COUNTED % (AUTO) 100 %
[2017-12-14 17:12] LABS: ALANINE AMINOTRANSFERASE 19 U/L (21-72); ALBUMIN 2.8 g/dL (3.5-5.0); ALKALINE PHOSPHATASE 115 U/L (38-126); ANION GAP 7 (5-19); ASPARTATE AMINO TRANSFERASE 18 U/L (17-59); BILIRUBIN,DIRECT 0.5 mg/dL (0.0-0.4); BILIRUBIN,TOTAL 0.5 mg/dL (0.2-1.3); BLOOD UREA NITROGEN 40 mg/dL (7-20); CALCIUM 9.6 mg/dL (8.4-10.2); CARBON DIOXIDE 26 mmol/L (22-30); CHLORIDE 111 mmol/L (98-107); GLUCOSE 107 mg/dL (75-110); POTASSIUM 4.8 mmol/L (3.6-5.0); SODIUM 143.7 mmol/L (137-145); TOTAL PROTEIN 6.3 g/dL (6.3-8.2)
[2017-12-14] MEDS ORDERED: FUROSEMIDE INJ/PF 40 MG/4 ML SDV IV ONE (19:35)
[2017-12-14 20:47] LABS: INTERNATIONAL RATION (INR) 1.76; PROTHROMBIN TIME 21.3 SEC (11.4-15.4)
[2017-12-14 20:51] LABS: TOTAL PROTEIN 6.1 g/dL (6.3-8.2)
[2017-12-15 01:58] LABS: UR PRO/CREAT RATIO RESULT 1.4 mg/mg (0.0-0.2); URINE CREATININE 31.2 mg/dL (22-328); URINE PROTEIN 43.3 mg/dL (<12)
[2017-12-15] MEDS: LANSOPRAZOLE 30 MG TAB.RAP.DR PO SCH (05:16)
[2017-12-15] MEDS: CIPROFLOXACIN 400 MG/D5W RTU 400 MG/200 ML RTUPB IV SCH ×2 (05:17→17:19)
[2017-12-15] MEDS: INSULIN DETEMIR 100 UNIT/ML 3 ML PEN SUBCUT SCH (08:36)
[2017-12-15] MEDS: VALSARTAN 80 MG TABLET PO SCH (08:59)
[2017-12-15] MEDS: SITAGLIPTIN PHOSPHATE 50 MG TABLET PO SCH (09:00)
[2017-12-15] MEDS: CITALOPRAM HYDROBROMIDE 20 MG TABLET PO SCH (09:00)
[2017-12-15] MEDS: METOPROLOL SUCCINATE 25 MG TAB.SR.24H PO SCH (09:00)
[2017-12-15] MEDS: FOLIC ACID 1 MG TABLET PO SCH (09:00)
[2017-12-15] MEDS: DOCUSATE SODIUM 100 MG CAPSULE PO SCH ×2 (09:00→22:05)
[2017-12-15] MEDS: AMIODARONE HCL 200 MG TABLET PO SCH (09:00)
--- NOTE | 2017-12-15 20:59 | PDOC PROGRESS REPORT ---
Subjective Progress Note for:: 12/15/17 Subjective:: He has a large pleural effusion, thoracentesis was not done today he needed to be of the anticoagulant Eliquis for 2 days before radiology will do the thoracentesis Reason For Visit: ACUTE OBSTRUCTIVE UROPATHY, ACUTE KIDNEY INJURY Physical Exam Vital Signs: Temp Pulse Resp BP Pulse Ox 97.4 F 96 16 107/69 94 12/15/17 19:53 12/15/17 19:53 12/15/17 19:53 12/15/17 19:53 12/15/17 19:53 Intake & Output 12/14/17 12/15/17 12/16/17 06:59 06:59 06:59 Intake Total 650 1820 600 Output Total 650 225 150 Balance 0 1595 450 Weight 69.4 kg 70.2 kg General appearance: PRESENT: no acute distress Eye exam: PRESENT: PERRLA Respiratory exam: PRESENT: clear to auscultation denita Cardiovascular exam: PRESENT: +S1, +S2 GI/Abdominal exam: PRESENT: soft Neurological exam: PRESENT: alert Results Laboratory Results: 12/14/17 16:47 12/14/17 16:47 Impressions: Head CT 12/03/17 02:18 IMPRESSION: No acute intracranial abnormality TECHNICAL DOCUMENTATION: Quality ID # 436: Final reports with documentation of one or more dose reduction techniques (e.g., Automated exposure control, adjustment of the mA and/or kV according to patient size, use of iterative reconstruction technique) 2010 [employer]- All Rights Reserved Chest X-Ray 12/14/17 00:00 IMPRESSION: INTERVAL DEVELOPMENT OF A VERY LARGE RIGHT PLEURAL EFFUSION. SMALLER LEFT PLEURAL EFFUSION WITH LEFT BASILAR ATELECTASIS VERSUS INFILTRATE. Assessment & Plan - Diagnosis (1) Pseudomonas urinary tract infection Is this a current diagnosis for this admission?: Yes (2) Chronic atrial fibrillation Is this a current diagnosis for this admission?: Yes (3) Diabetes mellitus type 2 in nonobese Is this a current diagnosis for this admission?: Yes (4) Catheter-associated urinary tract infection Qualifiers: Indwelling urinary catheter type: cystostomy catheter Encounter type: initial encounter Qualified Code(s): T83.510A - Infection and inflammatory reaction due to cystostomy catheter, initial encounter; N39.0 - Urinary tract infection, site not specified; N39.0 - Urinary tract infection, site not specified Is this a current diagnosis for this admission?: Yes (5) Obstructed suprapubic catheter Qualifiers: Encounter type: initial encounter Qualified Code(s): T83.090A - Other mechanical complication of cystostomy catheter, initial encounter Is this a current diagnosis for this admission?: Yes (6) Metabolic encephalopathy Is this a current diagnosis for this admission?: Yes (7) Pleural effusion Is this a current diagnosis for this admission?: Yes
[2017-12-15] MEDS: APIXABAN 2.5 MG TABLET PO SCH (21:12)
[2017-12-15] MEDS ORDERED: FUROSEMIDE INJ/PF 40 MG/4 ML SDV IV ONE (21:30)
[2017-12-16] MEDS: CIPROFLOXACIN 400 MG/D5W RTU 400 MG/200 ML RTUPB IV SCH ×2 (05:54→19:56)
[2017-12-16] MEDS: LANSOPRAZOLE 30 MG TAB.RAP.DR PO SCH (05:55)
[2017-12-16 09:39] LABS: INTERNATIONAL RATION (INR) 1.55; PROTHROMBIN TIME 19.4 SEC (11.4-15.4)
[2017-12-16] MEDS: DOCUSATE SODIUM 100 MG CAPSULE PO SCH (10:08)
[2017-12-16] MEDS: CITALOPRAM HYDROBROMIDE 20 MG TABLET PO SCH (10:08)
[2017-12-16] MEDS: AMIODARONE HCL 200 MG TABLET PO SCH (10:09)
[2017-12-16] MEDS: FOLIC ACID 1 MG TABLET PO SCH (10:09)
[2017-12-16] MEDS: METOPROLOL SUCCINATE 25 MG TAB.SR.24H PO SCH (10:19)
[2017-12-16] MEDS: VALSARTAN 80 MG TABLET PO SCH (10:19)
[2017-12-16] MEDS: INSULIN DETEMIR 100 UNIT/ML 3 ML PEN SUBCUT SCH (10:21)
[2017-12-16] MEDS: APIXABAN 2.5 MG TABLET PO SCH (10:22)
--- NOTE | 2017-12-16 13:38 | RADIOLOGY REPORT (SQ) ---
EXAM DESCRIPTION: CHEST SINGLE VIEW COMPLETED DATE/TIME: 12/16/2017 1:31 pm REASON FOR STUDY: POST THORA COMPARISON: 12/14/2017 EXAM PARAMETERS: NUMBER OF VIEWS: One view. TECHNIQUE: Single frontal radiographic view of the chest acquired. RADIATION DOSE: NA LIMITATIONS: None. FINDINGS: LUNGS AND PLEURA: No pneumothorax following right-sided thoracentesis. There right is. S mall right pleural effusion remains. MEDIASTINUM AND HILAR STRUCTURES: No masses. Contour normal. HEART AND VASCULAR STRUCTURES: Stable in appearance. BONES: No acute findings. HARDWARE: Battery pack and leads remain place. OTHER: No other significant finding. IMPRESSION: No pneumothorax following right-sided thoracentesis. TECHNICAL DOCUMENTATION: JOB ID: [id number] [employer]- All Rights Reserved Reading location - IP/workstation name: [email or web address]
--- NOTE | 2017-12-16 14:06 | RADIOLOGY REPORT (SQ) ---
EXAM DESCRIPTION: U/S THORACENTESIS WITH IMAGING COMPLETED DATE/TIME: 12/16/2017 1:08 pm REASON FOR STUDY: pleural effusion COMPARISON: Chest films 12/14/2017, 12/03/2017 LIMITATIONS: None. PROCEDURE: Procedure, risks, benefit, and alternative explained to patient who then gave written con sent. The lateral right chest wall was marked using ultrasound guidance. A time-out was called for correct marking verification. Chest prepped and draped using sterile technique. Local anesthesia ach ieved using 6 ml of 1% lidocaine injection. A 6fr Safe-T- Centesis set was introduced into the right pleural space. Fluid was aspirated. The catheter was removed and the entry site was covered with s terile bandage. No immediate complications noted. 1 L of clear straw-colored fluid was removed from the right chest. Fluid was sent for testing as per Dr. Shelton Images acquired during the procedure were stored on PACS. FINDINGS: ENTRY SITE: Right lateral chest FLUID VOLUME: 1 L clear yellow straw-colored fluid FLUID ANALYSIS: Yes, sent for testing OTHER: No pneumothorax on post procedure chest x-ray dictated separately IMPRESSION: SUCCESSFUL THORACENTESIS USING ULTRASOUND GUIDANCE. COMMENT: Patient medication list reviewed: Yes- Quality ID# [id number]:Eligible professional attests to doc umenting in the medical record they obtained, updated, or reviewed the patient's current medications. TECHNICAL DOCUMENTATION: JOB ID: [id number] [employer]- All Rights Reserved Reading location - IP/workstation name: [email or web address]
[2017-12-16 14:35] LABS: FLUID APPEARANCE CLEAR; FLUID COLOR YELLOW; FLUID SOURCE LUNG; FLUID TYPE PLEURAL; FLUID VISCOSITY LIQUID
--- NOTE | 2017-12-16 15:47 | RADIOLOGY REPORT (SQ) ---
EXAM DESCRIPTION: CHEST SINGLE VIEW COMPLETED DATE/TIME: 12/16/2017 3:22 pm REASON FOR STUDY: POST THORA COMPARISON: Chest films 12/14/2017, 12/16/2017 EXAM PARAMETERS: NUMBER OF VIEWS: One view. TECHNIQUE: Single frontal radiographic view of the chest acquired. RADIATION DOSE: NA LIMITATIONS: None. FINDINGS: LUNGS AND PLEURA: 2 Hours post right-sided thoracentesis. There is now ground-glass opaci ty in the right upper and lower lobe likely re-expansion pulmonary edema. Dr. Shelton notified of this finding, 1530 hours 12/16/2017. No pneumothorax. Persistent right minimal residual pleural fluid or pleural thickening. No left pleural effusion. Minimal left retrocardiac airspace disease, likely atelectasis. MEDIASTINUM AND HILAR STRUCTURES: No masses. Contour normal. HEART AND VASCULAR STRUCTURES: Stable cardiomegaly BONES: No acute findings. 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 IMPRESSION: No pneumothorax on 2 hour post thoracentesis film. There is ground-glass opacity throughout the right lung likely re-expansion pulmonary edema. TECHNICAL DOCUMENTATION: JOB ID: [id number] [employer]- All Rights Reserved Reading location - IP/workstation name: [email or web address]
[2017-12-16] MEDS ORDERED: FUROSEMIDE INJ/PF 40 MG/4 ML SDV IV ONE (19:00)
[2017-12-16] MEDS: SITAGLIPTIN PHOSPHATE 50 MG TABLET PO SCH (19:56)
[2017-12-16] MEDS: ACETAMINOPHEN 325 MG TABLET PO PRN (19:57)
--- NOTE | 2017-12-16 20:35 | PDOC PROGRESS REPORT ---
Subjective Progress Note for:: 12/16/17 Subjective:: Patient had thoracentesis done today ,1 liter fluid was collected post procedure chest x-ray showed pulmonary edema suggesting this most likely transudative effusion from CHF the pleural fluid analysis is pending. Reason For Visit: ACUTE OBSTRUCTIVE UROPATHY, ACUTE KIDNEY INJURY Physical Exam Vital Signs: Temp Pulse Resp BP Pulse Ox 97.3 F 105 H 16 115/74 93 12/16/17 20:00 12/16/17 20:00 12/16/17 20:00 12/16/17 20:00 12/16/17 20:00 Intake & Output 12/15/17 12/16/17 12/17/17 06:59 06:59 06:59 Intake Total 1820 1166 621 Output Total 225 800 500 Balance 1595 366 121 Weight 70.2 kg 71.2 kg General appearance: PRESENT: mild distress Eye exam: PRESENT: PERRLA Respiratory exam: PRESENT: rales Cardiovascular exam: PRESENT: +S1, +S2 GI/Abdominal exam: PRESENT: soft Neurological exam: PRESENT: alert Results Laboratory Results: 12/14/17 16:47 12/14/17 16:47 12/16/17 12:45 Fluid Type PLEURAL Fluid Source LUNG Fluid Color YELLOW Fluid Appearance CLEAR Fluid Viscosity LIQUID Fluid WBC 476 Fluid RBC 186 Impressions: Head CT 12/03/17 02:18 IMPRESSION: No acute intracranial abnormality TECHNICAL DOCUMENTATION: Quality ID # 436: Final reports with documentation of one or more dose reduction techniques (e.g., Automated exposure control, adjustment of the mA and/or kV according to patient size, use of iterative reconstruction technique) 2010 [employer]- All Rights Reserved Thoracentesis Ultrasound 12/16/17 00:00 IMPRESSION: SUCCESSFUL THORACENTESIS USING ULTRASOUND GUIDANCE. Chest X-Ray 12/16/17 15:15 IMPRESSION: No pneumothorax on 2 hour post thoracentesis film. There is ground-glass opacity throughout the right lung likely re-expansion pulmonary edema. Assessment & Plan - Diagnosis (1) Pseudomonas urinary tract infection Is this a current diagnosis for this admission?: Yes (2) Chronic atrial fibrillation Is this a current diagnosis for this admission?: Yes (3) Diabetes mellitus type 2 in nonobese Is this a current diagnosis for this admission?: Yes (4) Catheter-associated urinary tract infection Qualifiers: Indwelling urinary catheter type: cystostomy catheter Encounter type: initial encounter Qualified Code(s): T83.510A - Infection and inflammatory reaction due to cystostomy catheter, initial encounter; N39.0 - Urinary tract infection, site not specified; N39.0 - Urinary tract infection, site not specified Is this a current diagnosis for this admission?: Yes (5) Obstructed suprapubic catheter Qualifiers: Encounter type: initial encounter Qualified Code(s): T83.090A - Other mechanical complication of cystostomy catheter, initial encounter Is this a current diagnosis for this admission?: Yes (6) Metabolic encephalopathy Is this a current diagnosis for this admission?: Yes (7) Pleural effusion Is this a current diagnosis for this admission?: Yes Plan: This is most likely transudative pleural effusion from CHF, there is associated pulmonary edema, he has a history of chronic systolic and diastolic heart failure
[2017-12-17] MEDS: DOCUSATE SODIUM 100 MG CAPSULE PO SCH ×3 (00:23→22:15)
[2017-12-17] MEDS: APIXABAN 2.5 MG TABLET PO SCH ×3 (00:23→22:15)
[2017-12-17] MEDS: CIPROFLOXACIN 400 MG/D5W RTU 400 MG/200 ML RTUPB IV SCH (06:36)
[2017-12-17] MEDS: LANSOPRAZOLE 30 MG TAB.RAP.DR PO SCH (06:40)
[2017-12-17] MEDS: AMIODARONE HCL 200 MG TABLET PO SCH (11:53)
[2017-12-17] MEDS: CITALOPRAM HYDROBROMIDE 20 MG TABLET PO SCH (11:53)
[2017-12-17] MEDS: METOPROLOL SUCCINATE 25 MG TAB.SR.24H PO SCH (11:54)
[2017-12-17] MEDS: VALSARTAN 80 MG TABLET PO SCH (11:55)
[2017-12-17] MEDS: FOLIC ACID 1 MG TABLET PO SCH (11:56)
[2017-12-17] MEDS: INSULIN DETEMIR 100 UNIT/ML 3 ML PEN SUBCUT SCH (11:56)
[2017-12-17] MEDS: SITAGLIPTIN PHOSPHATE 50 MG TABLET PO SCH (12:07)
--- NOTE | 2017-12-17 16:21 | PDOC PROGRESS REPORT ---
Subjective Progress Note for:: 12/17/17 Subjective:: Patient is seen by the bedside, yesterday he had thoracentesis done, pleural fluid analysis is pending. Post procedure chest x-ray demonstrated pulmonary edema he had a dose of IV furosemide with good result, history of chronic combined systolic and diastolic heart failure, 2D echo ordered. Reason For Visit: ACUTE OBSTRUCTIVE UROPATHY, ACUTE KIDNEY INJURY Physical Exam Vital Signs: Temp Pulse Resp BP Pulse Ox 97.8 F 99 18 102/50 L 98 12/17/17 12:00 12/17/17 12:00 12/17/17 12:00 12/17/17 12:00 12/17/17 12:00 Intake & Output 12/16/17 12/17/17 12/18/17 06:59 06:59 06:59 Intake Total 1166 1288 Output Total 800 700 Balance 366 588 Weight 71.2 kg 69.4 kg General appearance: PRESENT: no acute distress Eye exam: PRESENT: PERRLA Respiratory exam: PRESENT: clear to auscultation denita Cardiovascular exam: PRESENT: +S1, +S2 GI/Abdominal exam: PRESENT: soft Neurological exam: PRESENT: alert Results Laboratory Results: 12/14/17 16:47 12/14/17 16:47 Impressions: Head CT 12/03/17 02:18 IMPRESSION: No acute intracranial abnormality TECHNICAL DOCUMENTATION: Quality ID # 436: Final reports with documentation of one or more dose reduction techniques (e.g., Automated exposure control, adjustment of the mA and/or kV according to patient size, use of iterative reconstruction technique) 2010 [employer]- All Rights Reserved Thoracentesis Ultrasound 12/16/17 00:00 IMPRESSION: SUCCESSFUL THORACENTESIS USING ULTRASOUND GUIDANCE. Chest X-Ray 12/16/17 15:15 IMPRESSION: No pneumothorax on 2 hour post thoracentesis film. There is ground-glass opacity throughout the right lung likely re-expansion pulmonary edema. Assessment & Plan - Diagnosis (1) Pseudomonas urinary tract infection Is this a current diagnosis for this admission?: Yes (2) Chronic atrial fibrillation Is this a current diagnosis for this admission?: Yes (3) Diabetes mellitus type 2 in nonobese Is this a current diagnosis for this admission?: Yes (4) Catheter-associated urinary tract infection Qualifiers: Indwelling urinary catheter type: cystostomy catheter Encounter type: initial encounter Qualified Code(s): T83.510A - Infection and inflammatory reaction due to cystostomy catheter, initial encounter; N39.0 - Urinary tract infection, site not specified; N39.0 - Urinary tract infection, site not specified Is this a current diagnosis for this admission?: Yes (5) Obstructed suprapubic catheter Qualifiers: Encounter type: initial encounter Qualified Code(s): T83.090A - Other mechanical complication of cystostomy catheter, initial encounter Is this a current diagnosis for this admission?: Yes (6) Metabolic encephalopathy Is this a current diagnosis for this admission?: Yes (7) Pleural effusion Is this a current diagnosis for this admission?: Yes - Plan Summary Plan Summary: Continue IV antibiotic for UTI, start furosemide 40 mg p.o. daily, order 2D echo to evaluate systolic function of left ventricle
[2017-12-17] MEDS ORDERED: FUROSEMIDE 40 MG TABLET PO SCH (16:30)
[2017-12-17] MEDS ORDERED: NORMAL SALINE 250 ML with FUROSEMIDE 250 MG IV PRN ×2 (18:46)
[2017-12-17] MEDS ORDERED: FUROSEMIDE INJ/PF 100 MG/10 ML SDV IV PRN (18:53)
[2017-12-17 19:29] LABS: ABSOLUTE BASOPHILS # (AUTO) 0.1 10^3/uL (0.0-0.2); ABSOLUTE EOSINOPHILS # (AUTO) 0.1 10^3/uL (0.0-0.6); ABSOLUTE LYMPHOCYTES (AUTO) 0.8 10^3/uL (0.5-4.7); ABSOLUTE MONOCYTES (AUTO) 0.7 10^3/uL (0.1-1.4); BASOPHILS % (AUTO) 0.8 % (0-2); EOSINOPHILS % (AUTO) 1.6 % (0-6); HEMATOCRIT 34.8 % (37.9-51.0); HEMOGLOBIN 11.1 g/dL (13.5-17.0); LYMPHOCYTES % (AUTO) 9.6 % (13-45); MEAN CORPUSCULAR HEMOGLOBIN 25.5 pg (27.0-33.4); MEAN CORPUSCULAR HGB CONC 31.9 g/dL (32.0-36.0); MEAN CORPUSCULAR VOLUME 80 fl (80-97); MONOCYTES % (AUTO) 8.1 % (3-13); PLATELET COUNT 168 10^3/uL (150-450); RED BLOOD COUNT 4.35 10^6/uL (4.35-5.55); RED CELL DISTRIBUTION WIDTH 17.9 % (11.5-14.0); SEGMENTED NEUTROPHILS % (AUTO) 79.9 % (42-78); TOTAL CELLS COUNTED % (AUTO) 100 %; WHITE BLOOD COUNT 8.8 10^3/uL (4.0-10.5)
[2017-12-17 19:50] LABS: ALANINE AMINOTRANSFERASE 16 U/L (21-72); ALBUMIN 2.8 g/dL (3.5-5.0); ALKALINE PHOSPHATASE 118 U/L (38-126); ANION GAP 10 (5-19); ASPARTATE AMINO TRANSFERASE 13 U/L (17-59); BILIRUBIN,DIRECT 0.5 mg/dL (0.0-0.4); BILIRUBIN,TOTAL 0.5 mg/dL (0.2-1.3); BLOOD UREA NITROGEN 52 mg/dL (7-20); CALCIUM 9.5 mg/dL (8.4-10.2); CARBON DIOXIDE 25 mmol/L (22-30); CHLORIDE 104 mmol/L (98-107); GLUCOSE 142 mg/dL (75-110); POTASSIUM 4.9 mmol/L (3.6-5.0); SODIUM 139.4 mmol/L (137-145); TOTAL PROTEIN 6.1 g/dL (6.3-8.2)
[2017-12-18 06:15] LABS: TOTAL PROTEIN BODY FLUID 2.7 g/dL (.)
[2017-12-18] MEDS: LANSOPRAZOLE 30 MG TAB.RAP.DR PO SCH (06:18)
[2017-12-18] MEDS: AMIODARONE HCL 200 MG TABLET PO SCH (08:00)
[2017-12-18] MEDS: CITALOPRAM HYDROBROMIDE 20 MG TABLET PO SCH (08:00)
[2017-12-18] MEDS: INSULIN DETEMIR 100 UNIT/ML 3 ML PEN SUBCUT SCH (08:01)
[2017-12-18] MEDS: METOPROLOL SUCCINATE 25 MG TAB.SR.24H PO SCH (08:01)
[2017-12-18] MEDS: SITAGLIPTIN PHOSPHATE 50 MG TABLET PO SCH (11:21)
[2017-12-18] MEDS: VALSARTAN 80 MG TABLET PO SCH (11:21)
[2017-12-18] MEDS: FOLIC ACID 1 MG TABLET PO SCH (11:21)
[2017-12-18] MEDS: DOCUSATE SODIUM 100 MG CAPSULE PO SCH ×2 (11:21→22:21)
[2017-12-18] MEDS: APIXABAN 2.5 MG TABLET PO SCH ×2 (11:21→22:21)
[2017-12-18] MEDS ORDERED: DOBUTAMINE HCL/D5W 500 MG/250 ML RTUINJ IV PRN (11:28)
--- NOTE | 2017-12-18 13:31 | PDOC PROGRESS REPORT ---
Subjective Progress Note for:: 12/18/17 Subjective:: Patient was seen by the bedside, he needs IV furosemide but the blood pressure is too low, history of chronic systolic and diastolic heart failure, start IV dobutamine, transferred to IMCU bed Reason For Visit: ACUTE OBSTRUCTIVE UROPATHY, ACUTE KIDNEY INJURY Physical Exam Vital Signs: Temp Pulse Resp BP Pulse Ox 97.3 F 69 18 97/59 L 99 12/18/17 08:00 12/18/17 08:00 12/18/17 08:00 12/18/17 08:00 12/18/17 08:24 Intake & Output 12/17/17 12/18/17 12/19/17 06:59 06:59 06:59 Intake Total 1288 725 Output Total 700 650 Balance 588 75 Weight 69.4 kg 68.4 kg General appearance: PRESENT: no acute distress Eye exam: PRESENT: PERRLA Respiratory exam: PRESENT: rhonchi Cardiovascular exam: PRESENT: +S1, +S2 GI/Abdominal exam: PRESENT: soft Neurological exam: PRESENT: alert Results Laboratory Results: 12/17/17 19:17 12/17/17 19:17 12/16/17 12/16/17 12/17/17 12:45 12:45 19:17 WBC 8.8 RBC 4.35 Hgb 11.1 L Hct 34.8 L MCV 80 MCH 25.5 L MCHC 31.9 L RDW 17.9 H Plt Count 168 Seg Neutrophils % 79.9 H Lymphocytes % 9.6 L Monocytes % 8.1 Eosinophils % 1.6 Basophils % 0.8 Absolute Neutrophils 7.0 Absolute Lymphocytes 0.8 Absolute Monocytes 0.7 Absolute Eosinophils 0.1 Absolute Basophils 0.1 Sodium Potassium Chloride Carbon Dioxide Anion Gap BUN Creatinine Est GFR ( Amer) Est GFR (Non-Af Amer) Glucose Calcium Total Bilirubin AST ALT Alkaline Phosphatase Total Protein Albumin Fluid Glucose 118 Fluid Total Protein 2.7 Fluid LDH 53 Fluid Amylase 21 12/17/17 19:17 WBC RBC Hgb Hct MCV MCH MCHC RDW Plt Count Seg Neutrophils % Lymphocytes % Monocytes % Eosinophils % Basophils % Absolute Neutrophils Absolute Lymphocytes Absolute Monocytes Absolute Eosinophils Absolute Basophils Sodium 139.4 Potassium 4.9 Chloride 104 Carbon Dioxide 25 Anion Gap 10 BUN 52 H Creatinine 2.45 H Est GFR ( Amer) 31 L Est GFR (Non-Af Amer) 25 L Glucose 142 H Calcium 9.5 Total Bilirubin 0.5 AST 13 L ALT 16 L Alkaline Phosphatase 118 Total Protein 6.1 L Albumin 2.8 L Fluid Glucose Fluid Total Protein Fluid LDH Fluid Amylase Impressions: Head CT 12/03/17 02:18 IMPRESSION: No acute intracranial abnormality TECHNICAL DOCUMENTATION: Quality ID # 436: Final reports with documentation of one or more dose reduction techniques (e.g., Automated exposure control, adjustment of the mA and/or kV according to patient size, use of iterative reconstruction technique) 2010 [employer]- All Rights Reserved Thoracentesis Ultrasound 12/16/17 00:00 IMPRESSION: SUCCESSFUL THORACENTESIS USING ULTRASOUND GUIDANCE. Chest X-Ray 12/16/17 15:15 IMPRESSION: No pneumothorax on 2 hour post thoracentesis film. There is ground-glass opacity throughout the right lung likely re-expansion pulmonary edema. Assessment & Plan - Diagnosis (1) Pseudomonas urinary tract infection Is this a current diagnosis for this admission?: Yes (2) Chronic atrial fibrillation Is this a current diagnosis for this admission?: Yes (3) Diabetes mellitus type 2 in nonobese Is this a current diagnosis for this admission?: Yes (4) Catheter-associated urinary tract infection Qualifiers: Indwelling urinary catheter type: cystostomy catheter Encounter type: initial encounter Qualified Code(s): T83.510A - Infection and inflammatory reaction due to cystostomy catheter, initial encounter; N39.0 - Urinary tract infection, site not specified; N39.0 - Urinary tract infection, site not specified Is this a current diagnosis for this admission?: Yes (5) Obstructed suprapubic catheter Qualifiers: Encounter type: initial encounter Qualified Code(s): T83.090A - Other mechanical complication of cystostomy catheter, initial encounter Is this a current diagnosis for this admission?: Yes (6) Metabolic encephalopathy Is this a current diagnosis for this admission?: Yes (7) Pleural effusion Is this a current diagnosis for this admission?: Yes (8) Acute systolic heart failure Is this a current diagnosis for this admission?: Yes Plan: He has low blood pressure in the setting of acute systolic heart failure, start dobutamine
[2017-12-19] MEDS: LANSOPRAZOLE 30 MG TAB.RAP.DR PO SCH (06:47)
[2017-12-19] MEDS ORDERED: DEXTROSE 50%-WATER 25 GM/50 ML DISP.SYRIN IV ONE (07:26)
[2017-12-19] MEDS ORDERED: GLUCAGON,HUMAN RECOMB 1 MG INJ IM PRN (07:46)
[2017-12-19] MEDS ORDERED: DEXTROSE 40% GEL 15 GM TUBE PO PRN (07:46)
[2017-12-19] MEDS ORDERED: DEXTROSE 40% GEL 15 GM TUBE X 2 PO PRN (07:46)
[2017-12-19] MEDS ORDERED: DEXTROSE 50%-WATER SYRINGE 12.5 GM/25 ML DOSE IV PRN (07:46)
[2017-12-19] MEDS ORDERED: DEXTROSE 50%-WATER SYRINGE 25 GM/50 ML DOSE IV PRN (07:46)
[2017-12-19] MEDS: METOPROLOL SUCCINATE 25 MG TAB.SR.24H PO SCH (08:55)
[2017-12-19] MEDS: CITALOPRAM HYDROBROMIDE 20 MG TABLET PO SCH (08:55)
[2017-12-19] MEDS: AMIODARONE HCL 200 MG TABLET PO SCH (08:56)
[2017-12-19] MEDS: SITAGLIPTIN PHOSPHATE 50 MG TABLET PO SCH (11:54)
[2017-12-19] MEDS: DOCUSATE SODIUM 100 MG CAPSULE PO SCH ×2 (11:54→22:45)
[2017-12-19] MEDS: FOLIC ACID 1 MG TABLET PO SCH (11:54)
[2017-12-19] MEDS: APIXABAN 2.5 MG TABLET PO SCH ×2 (11:54→22:45)
[2017-12-19] MEDS: VALSARTAN 80 MG TABLET PO SCH (11:59)
[2017-12-19] MEDS: INSULIN DETEMIR 100 UNIT/ML 3 ML PEN SUBCUT SCH (11:59)
--- NOTE | 2017-12-19 20:15 | XCELERA REPORT ---
[address] [address] Transthoracic Echocardiogram Report Name: DAREK SIMON Age: 82 yrs Gender: Male : 1935 Patient Status: Inpatient Patient Location: [address] [place] [address] Study Date: 12/19/2017 11:07 AM Procedure: A two-dimensional transthoracic echocardiogram with color flow Doppler was performed. Study Quality: Technically suboptimal. The study was technically difficult with many images being suboptimal in quality. Reason For Study: pulmonary edema History: pulmonary edema. Ordering Physician: JOHN OSBORNE Performed By: Pema Neil Interpretation Summary The left ventricle is mildly dilated. There is normal left ventricular wall thickness. LV EF is 35% to 40% Left ventricular systolic function is moderately reduced. There is no thrombus. No True 2 chamber apical views obtained.Hence cannot comment on the apical and basal anterior reid, and the apical and basal inferior reid.The mid anterior and the mid inferior and the rest of the reid show moderate hypokinesis. LV diastolic function could not be adequately assessed due to atrial fibrilation. Apical wall motion abnormality may reflect pacemaker activation The right ventricle is mild to moderately dilated. There is a pacemaker lead in the right ventricle. The right ventricular systolic function is mildly reduced. The left atrial size is normal. There is no evidence of mitral valve prolapse. There is no mitral valve stenosis. There is no mitral regurgitation noted. There is no aortic valve stenosis No aortic regurgitation is present. There is no tricuspid stenosis. There is mild pulmonary hypertension by echo At least modertae TR if not severe.RVSP is 33 to 38 mm of Hg , with RA mean of 15 to 20.This is most likely an unerestimation of the RVSP due to poor doppler interogation of the valve. There is no pericardial effusion. Moderate to large left pleural effusion. MMode/2D Measurements & Calculations RVDd: 4.1 cm LVIDd: 5.1 cm FS: 39.5 % Ao root diam: 2.7 cm IVSd: 0.73 cm LVIDs: 3.1 cm EDV(Teich): 123.8 mlAo root area: 5.9 cm2 LVPWd: 0.94 cmESV(Teich): 37.5 ml EF(Teich): 69.7 % LVOT diam: 1.4 cm LVOT area: 1.6 cm2 Doppler Measurements & Calculations Ao V2 max: LV V1 max PG: PA V2 max: TR max sheryl: 67.2 cm/sec 1.5 mmHg 63.2 cm/sec 211.1 cm/sec Ao max PG: LV V1 max: PA max PG: TR max P.8 mmHg 1.8 mmHg 60.4 cm/sec 1.6 mmHg LUPILLO(V,D): 1.4 cm2 Left Ventricle The left ventricle is mildly dilated. There is normal left ventricular wall thickness. LV EF is 35% to 40%. Left ventricular systolic function is moderately reduced. LV diastolic function could not be adequately assessed due to atrial fibrilation. Apical wall motion abnormality may reflect pacemaker activation. No True 2 chamber apical views obtained.Hence cannot comment on the apical and basal anterior reid, and the apical and basal inferior reid.The mid anterior and the mid inferior and the rest of the reid show moderate hypokinesis. There is no thrombus. Right Ventricle The right ventricle is mild to moderately dilated. There is a pacemaker lead in the right ventricle. The right ventricular systolic function is mildly reduced. Atria The right atrium is normal. The left atrial size is normal. Mitral Valve There is no evidence of mitral valve prolapse. There is no vegetation seen on the mitral valve. There is no mitral valve stenosis. There is no mitral regurgitation noted. Aortic Valve There is no aortic valvular vegetation. There is no aortic valve stenosis. No aortic regurgitation is present. Tricuspid Valve There is no tricuspid stenosis. There is mild pulmonary hypertension by echo. At least modertae TR if not severe.RVSP is 33 to 38 mm of Hg , with RA mean of 15 to 20.This is most likely an unerestimation of the RVSP due to poor doppler interogation of the valve. Pulmonic Valve The pulmonic valve is not well visualized. Great Vessels The aortic root is not well visualized but is probably normal size. Effusions There is no pericardial effusion. Moderate to large left pleural effusion. : JOHN OSBORNE > Terri Cottrell
--- NOTE | 2017-12-19 21:53 | PDOC PROGRESS REPORT ---
Subjective Progress Note for:: 12/19/17 Subjective:: Patient was seen by the bedside, overall poor condition 2D echo was done EF about 30-40%, large left pleural effusion, he had thoracentesis done over the weekend one fluid was collected Reason For Visit: ACUTE OBSTRUCTIVE UROPATHY, ACUTE KIDNEY INJURY Physical Exam Vital Signs: Temp Pulse Resp BP Pulse Ox 97.4 F 99 24 H 102/89 H 93 12/19/17 15:56 12/19/17 19:00 12/19/17 15:56 12/19/17 15:56 12/19/17 15:56 Intake & Output 12/18/17 12/19/17 12/20/17 06:59 06:59 06:59 Intake Total 725 50 474 Output Total 650 550 325 Balance 75 -500 149 Weight 68.4 kg 72.1 kg General appearance: PRESENT: mild distress Eye exam: PRESENT: PERRLA Respiratory exam: PRESENT: clear to auscultation denita Cardiovascular exam: PRESENT: +S1, +S2 GI/Abdominal exam: PRESENT: soft Neurological exam: PRESENT: alert Results Laboratory Results: 12/17/17 19:17 12/17/17 19:17 12/16/17 12:45 Pleural Fluid - Right Pleural Effusion AFB Smear Concentration - Final 12/16/17 12:45 Pleural Fluid - Right Pleural Effusion Acid Fast Bacilli Smear - Final Impressions: Head CT 12/03/17 02:18 IMPRESSION: No acute intracranial abnormality TECHNICAL DOCUMENTATION: Quality ID # 436: Final reports with documentation of one or more dose reduction techniques (e.g., Automated exposure control, adjustment of the mA and/or kV according to patient size, use of iterative reconstruction technique) 2010 [employer]- All Rights Reserved Thoracentesis Ultrasound 12/16/17 00:00 IMPRESSION: SUCCESSFUL THORACENTESIS USING ULTRASOUND GUIDANCE. Chest X-Ray 12/16/17 15:15 IMPRESSION: No pneumothorax on 2 hour post thoracentesis film. There is ground-glass opacity throughout the right lung likely re-expansion pulmonary edema. Assessment & Plan - Diagnosis (1) Pseudomonas urinary tract infection Is this a current diagnosis for this admission?: Yes (2) Chronic atrial fibrillation Is this a current diagnosis for this admission?: Yes (3) Diabetes mellitus type 2 in nonobese Is this a current diagnosis for this admission?: Yes (4) Catheter-associated urinary tract infection Qualifiers: Indwelling urinary catheter type: cystostomy catheter Encounter type: initial encounter Qualified Code(s): T83.510A - Infection and inflammatory reaction due to cystostomy catheter, initial encounter; N39.0 - Urinary tract infection, site not specified; N39.0 - Urinary tract infection, site not specified Is this a current diagnosis for this admission?: Yes (5) Obstructed suprapubic catheter Qualifiers: Encounter type: initial encounter Qualified Code(s): T83.090A - Other mechanical complication of cystostomy catheter, initial encounter Is this a current diagnosis for this admission?: Yes (6) Metabolic encephalopathy Is this a current diagnosis for this admission?: Yes (7) Pleural effusion Is this a current diagnosis for this admission?: Yes Plan: It was transudative pleural effusion from CHF (8) Acute systolic heart failure Is this a current diagnosis for this admission?: Yes Plan: harjeet Head
[2017-12-20] MEDS: SACUBITRIL/VALSARTAN 24 MG/26 MG TABLET PO SCH ×3 (01:10→17:49)
[2017-12-20] MEDS ORDERED: FUROSEMIDE INJ/PF 100 MG/10 ML SDV ONE ×3 (01:25→01:41)
[2017-12-20] MEDS: NORMAL SALINE 250 ML with FUROSEMIDE 250 MG IV PRN ×2 (01:44)
[2017-12-20] MEDS: LANSOPRAZOLE 30 MG TAB.RAP.DR PO SCH (06:05)
[2017-12-20] MEDS: APIXABAN 2.5 MG TABLET PO SCH ×2 (10:31→22:28)
[2017-12-20] MEDS: CITALOPRAM HYDROBROMIDE 20 MG TABLET PO SCH (10:31)
[2017-12-20] MEDS: FOLIC ACID 1 MG TABLET PO SCH (10:31)
[2017-12-20] MEDS: SITAGLIPTIN PHOSPHATE 50 MG TABLET PO SCH (10:31)
[2017-12-20] MEDS: AMIODARONE HCL 200 MG TABLET PO SCH (10:31)
[2017-12-20] MEDS: DOCUSATE SODIUM 100 MG CAPSULE PO SCH ×2 (10:31→22:27)
[2017-12-20] MEDS: METOPROLOL SUCCINATE 25 MG TAB.SR.24H PO SCH (10:32)
[2017-12-20] MEDS: INSULIN DETEMIR 100 UNIT/ML 3 ML PEN SUBCUT SCH (10:32)
[2017-12-20 13:50] LABS: ABSOLUTE BASOPHILS # (AUTO) 0.1 10^3/uL (0.0-0.2); ABSOLUTE EOSINOPHILS # (AUTO) 0.2 10^3/uL (0.0-0.6); ABSOLUTE LYMPHOCYTES (AUTO) 0.8 10^3/uL (0.5-4.7); ABSOLUTE MONOCYTES (AUTO) 0.8 10^3/uL (0.1-1.4); EOSINOPHILS % (AUTO) 2.1 % (0-6); HEMATOCRIT 36.1 % (37.9-51.0); HEMOGLOBIN 11.5 g/dL (13.5-17.0); LYMPHOCYTES % (AUTO) 10.8 % (13-45); MEAN CORPUSCULAR HEMOGLOBIN 25.6 pg (27.0-33.4); MEAN CORPUSCULAR VOLUME 80 fl (80-97); MONOCYTES % (AUTO) 9.9 % (3-13); PLATELET COUNT 185 10^3/uL (150-450); RED CELL DISTRIBUTION WIDTH 18.6 % (11.5-14.0); SEGMENTED NEUTROPHILS % (AUTO) 76.2 % (42-78); TOTAL CELLS COUNTED % (AUTO) 100 %; WHITE BLOOD COUNT 7.9 10^3/uL (4.0-10.5)
[2017-12-20 14:19] LABS: ALANINE AMINOTRANSFERASE 16 U/L (21-72); ALBUMIN 2.9 g/dL (3.5-5.0); ALKALINE PHOSPHATASE 119 U/L (38-126); ANION GAP 11 (5-19); ASPARTATE AMINO TRANSFERASE 14 U/L (17-59); BILIRUBIN,DIRECT 0.6 mg/dL (0.0-0.4); BILIRUBIN,TOTAL 0.7 mg/dL (0.2-1.3); BLOOD UREA NITROGEN 55 mg/dL (7-20); CALCIUM 9.6 mg/dL (8.4-10.2); CARBON DIOXIDE 25 mmol/L (22-30); CHLORIDE 108 mmol/L (98-107); GLUCOSE 93 mg/dL (75-110); POTASSIUM 4.7 mmol/L (3.6-5.0); SODIUM 143.9 mmol/L (137-145); TOTAL PROTEIN 6.3 g/dL (6.3-8.2)
--- NOTE | 2017-12-20 21:18 | PDOC PROGRESS REPORT ---
Subjective Progress Note for:: 12/20/17 Subjective:: I had a long discussion with the patient's daughter about his condition the plan of care and overall prognosis Reason For Visit: ACUTE OBSTRUCTIVE UROPATHY, ACUTE KIDNEY INJURY Physical Exam Vital Signs: Temp Pulse Resp BP Pulse Ox 98.3 F 104 H 20 102/50 L 100 12/20/17 19:37 12/20/17 19:37 12/20/17 19:37 12/20/17 19:37 12/20/17 19:37 Intake & Output 12/19/17 12/20/17 12/21/17 06:59 06:59 06:59 Intake Total 50 474 75 Output Total 550 725 875 Balance -500 -297 -626 Weight 72.1 kg 69 kg General appearance: PRESENT: no acute distress Eye exam: PRESENT: PERRLA Cardiovascular exam: PRESENT: +S1, +S2 GI/Abdominal exam: PRESENT: soft Neurological exam: PRESENT: alert Results Laboratory Results: 12/20/17 12:55 12/20/17 12:55 12/20/17 12/20/17 12:55 12:55 WBC 7.9 RBC 4.50 Hgb 11.5 L Hct 36.1 L MCV 80 MCH 25.6 L MCHC 32.0 RDW 18.6 H Plt Count 185 Seg Neutrophils % 76.2 Lymphocytes % 10.8 L Monocytes % 9.9 Eosinophils % 2.1 Basophils % 1.0 Absolute Neutrophils 6.0 Absolute Lymphocytes 0.8 Absolute Monocytes 0.8 Absolute Eosinophils 0.2 Absolute Basophils 0.1 Sodium 143.9 Potassium 4.7 Chloride 108 H Carbon Dioxide 25 Anion Gap 11 BUN 55 H Creatinine 2.48 H Est GFR ( Amer) 30 L Est GFR (Non-Af Amer) 25 L Glucose 93 Calcium 9.6 Total Bilirubin 0.7 AST 14 L ALT 16 L Alkaline Phosphatase 119 Total Protein 6.3 Albumin 2.9 L 12/16/17 12:45 Pleural Fluid Fungal Smear - Final 12/16/17 12:45 Pleural Fluid Fungal Smear - Final 12/16/17 12:45 Pleural Fluid Gram Stain - Final 12/16/17 12:45 Pleural Fluid Body Fluid Culture - Final NO AEROBIC OR ANAEROBIC ORGANISMS RECOVERED Impressions: Head CT 12/03/17 02:18 IMPRESSION: No acute intracranial abnormality TECHNICAL DOCUMENTATION: Quality ID # 436: Final reports with documentation of one or more dose reduction techniques (e.g., Automated exposure control, adjustment of the mA and/or kV according to patient size, use of iterative reconstruction technique) 2010 [email or web address]- All Rights Reserved Thoracentesis Ultrasound 12/16/17 00:00 IMPRESSION: SUCCESSFUL THORACENTESIS USING ULTRASOUND GUIDANCE. Chest X-Ray 12/16/17 15:15 IMPRESSION: No pneumothorax on 2 hour post thoracentesis film. There is ground-glass opacity throughout the right lung likely re-expansion pulmonary edema. Assessment & Plan - Diagnosis (1) Pseudomonas urinary tract infection Is this a current diagnosis for this admission?: Yes (2) Chronic atrial fibrillation Is this a current diagnosis for this admission?: Yes (3) Diabetes mellitus type 2 in nonobese Is this a current diagnosis for this admission?: Yes (4) Catheter-associated urinary tract infection Qualifiers: Indwelling urinary catheter type: cystostomy catheter Encounter type: initial encounter Qualified Code(s): T83.510A - Infection and inflammatory reaction due to cystostomy catheter, initial encounter; N39.0 - Urinary tract infection, site not specified; N39.0 - Urinary tract infection, site not specified Is this a current diagnosis for this admission?: Yes (5) Obstructed suprapubic catheter Qualifiers: Encounter type: initial encounter Qualified Code(s): T83.090A - Other mechanical complication of cystostomy catheter, initial encounter Is this a current diagnosis for this admission?: Yes (6) Metabolic encephalopathy Is this a current diagnosis for this admission?: Yes (7) Pleural effusion Is this a current diagnosis for this admission?: Yes (8) Acute systolic heart failure Is this a current diagnosis for this admission?: Yes
[2017-12-21] MEDS: NORMAL SALINE 250 ML with FUROSEMIDE 250 MG IV PRN ×4 (00:53→19:39)
[2017-12-21 05:37] LABS: ABSOLUTE BASOPHILS # (AUTO) 0.1 10^3/uL (0.0-0.2); ABSOLUTE EOSINOPHILS # (AUTO) 0.1 10^3/uL (0.0-0.6); ABSOLUTE LYMPHOCYTES (AUTO) 1.1 10^3/uL (0.5-4.7); ABSOLUTE MONOCYTES (AUTO) 0.9 10^3/uL (0.1-1.4); ABSOLUTE NEUT (AUTO) 5.6 10^3/uL (1.7-8.2); BASOPHILS % (AUTO) 0.9 % (0-2); EOSINOPHILS % (AUTO) 1.9 % (0-6); HEMATOCRIT 36.1 % (37.9-51.0); HEMOGLOBIN 11.9 g/dL (13.5-17.0); LYMPHOCYTES % (AUTO) 13.8 % (13-45); MEAN CORPUSCULAR HGB CONC 32.8 g/dL (32.0-36.0); MEAN CORPUSCULAR VOLUME 79 fl (80-97); MONOCYTES % (AUTO) 11.6 % (3-13); PLATELET COUNT 173 10^3/uL (150-450); RED BLOOD COUNT 4.56 10^6/uL (4.35-5.55); RED CELL DISTRIBUTION WIDTH 18.2 % (11.5-14.0); SEGMENTED NEUTROPHILS % (AUTO) 71.8 % (42-78); TOTAL CELLS COUNTED % (AUTO) 100 %; WHITE BLOOD COUNT 7.8 10^3/uL (4.0-10.5)
[2017-12-21] MEDS: LANSOPRAZOLE 30 MG TAB.RAP.DR PO SCH (05:50)
[2017-12-21 06:09] LABS: ALANINE AMINOTRANSFERASE 17 U/L (21-72); ALBUMIN 2.7 g/dL (3.5-5.0); ALKALINE PHOSPHATASE 111 U/L (38-126); ANION GAP 11 (5-19); ASPARTATE AMINO TRANSFERASE 14 U/L (17-59); BILIRUBIN,DIRECT 0.6 mg/dL (0.0-0.4); BILIRUBIN,TOTAL 0.7 mg/dL (0.2-1.3); BLOOD UREA NITROGEN 58 mg/dL (7-20); CALCIUM 9.6 mg/dL (8.4-10.2); CARBON DIOXIDE 28 mmol/L (22-30); CHLORIDE 106 mmol/L (98-107); GLUCOSE 89 mg/dL (75-110); POTASSIUM 4.6 mmol/L (3.6-5.0); SODIUM 145.2 mmol/L (137-145); TOTAL PROTEIN 5.8 g/dL (6.3-8.2)
[2017-12-21] MEDS: SITAGLIPTIN PHOSPHATE 50 MG TABLET PO SCH (11:00)
[2017-12-21] MEDS: APIXABAN 2.5 MG TABLET PO SCH ×2 (11:01→21:36)
[2017-12-21] MEDS: DOCUSATE SODIUM 100 MG CAPSULE PO SCH ×2 (11:01→21:34)
[2017-12-21] MEDS: AMIODARONE HCL 200 MG TABLET PO SCH (11:01)
[2017-12-21] MEDS: CITALOPRAM HYDROBROMIDE 20 MG TABLET PO SCH (11:01)
[2017-12-21] MEDS: FOLIC ACID 1 MG TABLET PO SCH (11:01)
[2017-12-21] MEDS: INSULIN DETEMIR 100 UNIT/ML 3 ML PEN SUBCUT SCH (11:02)
[2017-12-21] MEDS: METOPROLOL SUCCINATE 25 MG TAB.SR.24H PO SCH (11:02)
[2017-12-21] MEDS: SACUBITRIL/VALSARTAN 24 MG/26 MG TABLET PO SCH ×2 (11:03→17:44)
[2017-12-21] MEDS ORDERED: NORMAL SALINE 250 ML with FUROSEMIDE 250 MG IV PRN ×2 (19:30)
--- NOTE | 2017-12-21 19:32 | PDOC PROGRESS REPORT ---
Subjective Progress Note for:: 12/21/17 Subjective:: Patient was seen by the bedside, he has depressed sensorium, patient's sensorium has been fluctuating for the last couple of days sometime he is lucid sometimes is confused I discussed these findings with patient's daughter yesterday he continues to be on furosemide infusion. Reason For Visit: ACUTE OBSTRUCTIVE UROPATHY, ACUTE KIDNEY INJURY Physical Exam Vital Signs: Temp Pulse Resp BP Pulse Ox 97.6 F 93 20 101/64 93 12/21/17 16:09 12/21/17 14:00 12/21/17 16:09 12/21/17 16:09 12/21/17 12:07 Intake & Output 12/20/17 12/21/17 12/22/17 06:59 06:59 06:59 Intake Total 474 191 361 Output Total 720 5067 550 Balance -251 -2084 -189 Weight 69 kg 72 kg Respiratory exam: PRESENT: decreased breath sounds Cardiovascular exam: PRESENT: +S1, +S2 GI/Abdominal exam: PRESENT: soft Neurological exam: PRESENT: altered Results Laboratory Results: 12/21/17 04:16 12/21/17 04:16 12/21/17 12/21/17 04:16 04:16 WBC 7.8 RBC 4.56 Hgb 11.9 L Hct 36.1 L MCV 79 L MCH 26.0 L MCHC 32.8 RDW 18.2 H Plt Count 173 Seg Neutrophils % 71.8 Lymphocytes % 13.8 Monocytes % 11.6 Eosinophils % 1.9 Basophils % 0.9 Absolute Neutrophils 5.6 Absolute Lymphocytes 1.1 Absolute Monocytes 0.9 Absolute Eosinophils 0.1 Absolute Basophils 0.1 Sodium 145.2 H Potassium 4.6 Chloride 106 Carbon Dioxide 28 Anion Gap 11 BUN 58 H Creatinine 2.36 H Est GFR ( Amer) 32 L Est GFR (Non-Af Amer) 26 L Glucose 89 Calcium 9.6 Total Bilirubin 0.7 AST 14 L ALT 17 L Alkaline Phosphatase 111 Total Protein 5.8 L Albumin 2.7 L Impressions: Head CT 12/03/17 02:18 IMPRESSION: No acute intracranial abnormality TECHNICAL DOCUMENTATION: Quality ID # 436: Final reports with documentation of one or more dose reduction techniques (e.g., Automated exposure control, adjustment of the mA and/or kV according to patient size, use of iterative reconstruction technique) 2010 [employer]- All Rights Reserved Thoracentesis Ultrasound 12/16/17 00:00 IMPRESSION: SUCCESSFUL THORACENTESIS USING ULTRASOUND GUIDANCE. Chest X-Ray 12/16/17 15:15 IMPRESSION: No pneumothorax on 2 hour post thoracentesis film. There is ground-glass opacity throughout the right lung likely re-expansion pulmonary edema. Assessment & Plan - Diagnosis (1) Pseudomonas urinary tract infection Is this a current diagnosis for this admission?: Yes (2) Chronic atrial fibrillation Is this a current diagnosis for this admission?: Yes (3) Diabetes mellitus type 2 in nonobese Is this a current diagnosis for this admission?: Yes (4) Catheter-associated urinary tract infection Qualifiers: Indwelling urinary catheter type: cystostomy catheter Encounter type: initial encounter Qualified Code(s): T83.510A - Infection and inflammatory reaction due to cystostomy catheter, initial encounter; N39.0 - Urinary tract infection, site not specified; N39.0 - Urinary tract infection, site not specified Is this a current diagnosis for this admission?: Yes (5) Obstructed suprapubic catheter Qualifiers: Encounter type: initial encounter Qualified Code(s): T83.090A - Other mechanical complication of cystostomy catheter, initial encounter Is this a current diagnosis for this admission?: Yes (6) Metabolic encephalopathy Is this a current diagnosis for this admission?: Yes (7) Pleural effusion Is this a current diagnosis for this admission?: Yes (8) Acute systolic heart failure Is this a current diagnosis for this admission?: Yes - Plan Summary Plan Summary: Lower the infusion rate of furosemide to 2 mg/h
[2017-12-22] MEDS: LANSOPRAZOLE 30 MG TAB.RAP.DR PO SCH (05:21)
[2017-12-22] MEDS: APIXABAN 2.5 MG TABLET PO SCH ×2 (09:23→23:26)
[2017-12-22] MEDS: SITAGLIPTIN PHOSPHATE 50 MG TABLET PO SCH (09:23)
[2017-12-22] MEDS: METOPROLOL SUCCINATE 25 MG TAB.SR.24H PO SCH (09:23)
[2017-12-22] MEDS: AMIODARONE HCL 200 MG TABLET PO SCH (09:23)
[2017-12-22] MEDS: DOCUSATE SODIUM 100 MG CAPSULE PO SCH ×2 (09:23→23:31)
[2017-12-22] MEDS: FOLIC ACID 1 MG TABLET PO SCH (09:24)
[2017-12-22] MEDS: CITALOPRAM HYDROBROMIDE 20 MG TABLET PO SCH (09:24)
[2017-12-22] MEDS: INSULIN DETEMIR 100 UNIT/ML 3 ML PEN SUBCUT SCH (09:25)
[2017-12-22] MEDS: SACUBITRIL/VALSARTAN 24 MG/26 MG TABLET PO SCH ×2 (09:26→18:27)
[2017-12-22 10:59] LABS: ABSOLUTE BASOPHILS # (AUTO) 0.1 10^3/uL (0.0-0.2); ABSOLUTE EOSINOPHILS # (AUTO) 0.2 10^3/uL (0.0-0.6); ABSOLUTE MONOCYTES (AUTO) 1.1 10^3/uL (0.1-1.4); ABSOLUTE NEUT (AUTO) 7.1 10^3/uL (1.7-8.2); BASOPHILS % (AUTO) 0.8 % (0-2); EOSINOPHILS % (AUTO) 1.8 % (0-6); HEMATOCRIT 36.8 % (37.9-51.0); HEMOGLOBIN 11.8 g/dL (13.5-17.0); LYMPHOCYTES % (AUTO) 10.2 % (13-45); MEAN CORPUSCULAR HEMOGLOBIN 25.7 pg (27.0-33.4); MEAN CORPUSCULAR HGB CONC 32.1 g/dL (32.0-36.0); MEAN CORPUSCULAR VOLUME 80 fl (80-97); MONOCYTES % (AUTO) 11.8 % (3-13); PLATELET COUNT 195 10^3/uL (150-450); RED CELL DISTRIBUTION WIDTH 18.7 % (11.5-14.0); SEGMENTED NEUTROPHILS % (AUTO) 75.4 % (42-78); TOTAL CELLS COUNTED % (AUTO) 100 %; WHITE BLOOD COUNT 9.4 10^3/uL (4.0-10.5)
[2017-12-22 11:26] LABS: ANION GAP 11 (5-19); BLOOD UREA NITROGEN 58 mg/dL (7-20); CALCIUM 9.6 mg/dL (8.4-10.2); CARBON DIOXIDE 30 mmol/L (22-30); CHLORIDE 106 mmol/L (98-107); GLUCOSE 142 mg/dL (75-110); POTASSIUM 4.6 mmol/L (3.6-5.0); SODIUM 147.3 mmol/L (137-145)
--- NOTE | 2017-12-22 19:00 | RADIOLOGY REPORT (SQ) ---
EXAM DESCRIPTION: CHEST SINGLE VIEW COMPLETED DATE/TIME: 12/22/2017 6:38 pm REASON FOR STUDY: pneumonia COMPARISON: 12/16/2017 EXAM PARAMETERS: NUMBER OF VIEWS: One view. TECHNIQUE: Single frontal radiographic view of the chest acquired. RADIATION DOSE: NA LIMITATIONS: None. FINDINGS: LUNGS AND PLEURA: Increased right pleural effusion compared with the prior exam, now moder ate in size with the appearance of subpleural loculations. The previously seen right pulmonary airsp ruby disease appears to have largely resolved. Left lung appears clear, small left pleural effusion. No pneumothorax. MEDIASTINUM AND HILAR STRUCTURES: Stable. HEART AND VASCULAR STRUCTURES: The similar cardiomegaly. BONES: No acute findings. HARDWARE: Cardiac pacer. OTHER: No other significant finding. IMPRESSION: Increased right pleural effusion compared with the prior exam, now moderate in size with the appearance of subpleural loculations. The previously seen right pulmonary airspace disease appe ars to have largely resolved. Left lung appears clear, small left pleural effusion. TECHNICAL DOCUMENTATION: JOB ID: [id number] [place]-72 2010 [employer]- All Rights Reserved Reading location - IP/workstation name: [employer]
--- NOTE | 2017-12-22 21:56 | PDOC PROGRESS REPORT ---
Subjective Progress Note for:: 12/22/17 Subjective:: Patient has condition is precarious, I had a long discussion with the daughter today patient is confused for the most part, repeat chest x-ray done today showed reaccumulation of right pleural effusion left lung is clear, we will repeat thoracentesis patient presently on Lasix drip. Reason For Visit: ACUTE OBSTRUCTIVE UROPATHY, ACUTE KIDNEY INJURY Physical Exam Vital Signs: Temp Pulse Resp BP Pulse Ox 98.2 F 85 20 100/58 L 95 12/22/17 19:02 12/22/17 19:02 12/22/17 19:02 12/22/17 19:02 12/22/17 19:02 Intake & Output 12/21/17 12/22/17 12/23/17 06:59 06:59 06:59 Intake Total 191 455 118 Output Total 2275 1025 600 Balance -2084 -570 -482 Weight 72 kg 68.9 kg General appearance: PRESENT: no acute distress Eye exam: PRESENT: PERRLA Respiratory exam: PRESENT: decreased breath sounds Cardiovascular exam: PRESENT: +S1, +S2 GI/Abdominal exam: PRESENT: soft Results Laboratory Results: 12/22/17 10:18 12/22/17 10:18 12/22/17 12/22/17 10:18 10:18 WBC 9.4 RBC 4.60 Hgb 11.8 L Hct 36.8 L MCV 80 MCH 25.7 L MCHC 32.1 RDW 18.7 H Plt Count 195 Seg Neutrophils % 75.4 Lymphocytes % 10.2 L Monocytes % 11.8 Eosinophils % 1.8 Basophils % 0.8 Absolute Neutrophils 7.1 Absolute Lymphocytes 1.0 Absolute Monocytes 1.1 Absolute Eosinophils 0.2 Absolute Basophils 0.1 Sodium 147.3 H Potassium 4.6 Chloride 106 Carbon Dioxide 30 Anion Gap 11 BUN 58 H Creatinine 2.49 H Est GFR ( Amer) 30 L Est GFR (Non-Af Amer) 25 L Glucose 142 H Calcium 9.6 Impressions: Head CT 12/03/17 02:18 IMPRESSION: No acute intracranial abnormality TECHNICAL DOCUMENTATION: Quality ID # 436: Final reports with documentation of one or more dose reduction techniques (e.g., Automated exposure control, adjustment of the mA and/or kV according to patient size, use of iterative reconstruction technique) 2010 [employer]- All Rights Reserved Thoracentesis Ultrasound 12/16/17 00:00 IMPRESSION: SUCCESSFUL THORACENTESIS USING ULTRASOUND GUIDANCE. Chest X-Ray 12/22/17 00:00 IMPRESSION: Increased right pleural effusion compared with the prior exam, now moderate in size with the appearance of subpleural loculations. The previously seen right pulmonary airspace disease appears to have largely resolved. Left lung appears clear, small left pleural effusion. Assessment & Plan - Diagnosis (1) Pseudomonas urinary tract infection Is this a current diagnosis for this admission?: Yes (2) Chronic atrial fibrillation Is this a current diagnosis for this admission?: Yes (3) Diabetes mellitus type 2 in nonobese Is this a current diagnosis for this admission?: Yes (4) Catheter-associated urinary tract infection Qualifiers: Indwelling urinary catheter type: cystostomy catheter Encounter type: initial encounter Qualified Code(s): T83.510A - Infection and inflammatory reaction due to cystostomy catheter, initial encounter; N39.0 - Urinary tract infection, site not specified; N39.0 - Urinary tract infection, site not specified Is this a current diagnosis for this admission?: Yes (5) Obstructed suprapubic catheter Qualifiers: Encounter type: initial encounter Qualified Code(s): T83.090A - Other mechanical complication of cystostomy catheter, initial encounter Is this a current diagnosis for this admission?: Yes (6) Metabolic encephalopathy Is this a current diagnosis for this admission?: Yes (7) Pleural effusion Is this a current diagnosis for this admission?: Yes Plan: thoracentesis is ordered (8) Acute systolic heart failure Is this a current diagnosis for this admission?: Yes
[2017-12-22] MEDS: NORMAL SALINE 250 ML with FUROSEMIDE 250 MG IV PRN ×2 (22:05)
[2017-12-22 23:16] LABS: INTERNATIONAL RATION (INR) 1.68; PROTHROMBIN TIME 20.6 SEC (11.4-15.4)
[2017-12-22 23:17] LABS: PARTIAL THROMBOPLASTIN TIME 38.9 SEC (23.5-35.8)
[2017-12-22 23:33] LABS: TOTAL PROTEIN 5.8 g/dL (6.3-8.2)
[2017-12-23] MEDS: LANSOPRAZOLE 30 MG TAB.RAP.DR PO SCH (06:01)
[2017-12-23] MEDS: SITAGLIPTIN PHOSPHATE 50 MG TABLET PO SCH (09:30)
[2017-12-23] MEDS: INSULIN DETEMIR 100 UNIT/ML 3 ML PEN SUBCUT SCH (09:31)
[2017-12-23] MEDS: DOCUSATE SODIUM 100 MG CAPSULE PO SCH ×2 (09:31→21:23)
[2017-12-23] MEDS: FOLIC ACID 1 MG TABLET PO SCH (09:31)
[2017-12-23] MEDS: SACUBITRIL/VALSARTAN 24 MG/26 MG TABLET PO SCH ×2 (09:31→18:27)
[2017-12-23] MEDS: METOPROLOL SUCCINATE 25 MG TAB.SR.24H PO SCH (09:37)
[2017-12-23] MEDS: AMIODARONE HCL 200 MG TABLET PO SCH (09:37)
[2017-12-23] MEDS: CITALOPRAM HYDROBROMIDE 20 MG TABLET PO SCH (09:38)
--- NOTE | 2017-12-23 20:10 | PDOC PROGRESS REPORT ---
Subjective Progress Note for:: 12/23/17 Subjective:: He was supposed to have thoracentesis but he is on anticoagulant Eliquis this was held today for 2 days Reason For Visit: ACUTE OBSTRUCTIVE UROPATHY, ACUTE KIDNEY INJURY Physical Exam Vital Signs: Temp Pulse Resp BP Pulse Ox 98.9 F 94 20 100/65 97 12/23/17 19:39 12/23/17 19:39 12/23/17 19:39 12/23/17 19:39 12/23/17 19:39 Intake & Output 12/22/17 12/23/17 12/24/17 06:59 06:59 06:59 Intake Total 455 171 218 Output Total 1025 1400 600 Balance -570 -1229 -771 Weight 68.9 kg 66.9 kg Eye exam: PRESENT: PERRLA Respiratory exam: PRESENT: decreased breath sounds Cardiovascular exam: PRESENT: +S1, +S2 GI/Abdominal exam: PRESENT: soft Neurological exam: PRESENT: alert Results Laboratory Results: 12/22/17 10:18 12/22/17 10:18 12/22/17 22:45 Total Protein 5.8 L Impressions: Head CT 12/03/17 02:18 IMPRESSION: No acute intracranial abnormality TECHNICAL DOCUMENTATION: Quality ID # 436: Final reports with documentation of one or more dose reduction techniques (e.g., Automated exposure control, adjustment of the mA and/or kV according to patient size, use of iterative reconstruction technique) 2010 [employer]- All Rights Reserved Thoracentesis Ultrasound 12/16/17 00:00 IMPRESSION: SUCCESSFUL THORACENTESIS USING ULTRASOUND GUIDANCE. Chest X-Ray 12/22/17 00:00 IMPRESSION: Increased right pleural effusion compared with the prior exam, now moderate in size with the appearance of subpleural loculations. The previously seen right pulmonary airspace disease appears to have largely resolved. Left lung appears clear, small left pleural effusion. Assessment & Plan - Diagnosis (1) Pseudomonas urinary tract infection Is this a current diagnosis for this admission?: Yes (2) Chronic atrial fibrillation Is this a current diagnosis for this admission?: Yes (3) Diabetes mellitus type 2 in nonobese Is this a current diagnosis for this admission?: Yes (4) Catheter-associated urinary tract infection Qualifiers: Indwelling urinary catheter type: cystostomy catheter Encounter type: initial encounter Is this a current diagnosis for this admission?: Yes (5) Obstructed suprapubic catheter Qualifiers: Encounter type: initial encounter Qualified Code(s): T83.090A - Other mechanical complication of cystostomy catheter, initial encounter Is this a current diagnosis for this admission?: Yes (6) Metabolic encephalopathy Is this a current diagnosis for this admission?: Yes (7) Pleural effusion Is this a current diagnosis for this admission?: Yes (8) Acute systolic heart failure Is this a current diagnosis for this admission?: Yes
[2017-12-23] MEDS: APIXABAN 2.5 MG TABLET PO SCH (21:22)
[2017-12-23] MEDS: NORMAL SALINE 250 ML with FUROSEMIDE 250 MG IV PRN ×2 (21:48)
[2017-12-24] MEDS: LANSOPRAZOLE 30 MG TAB.RAP.DR PO SCH (05:06)
[2017-12-24 05:44] LABS: INTERNATIONAL RATION (INR) 1.51
[2017-12-24] MEDS: METOPROLOL SUCCINATE 25 MG TAB.SR.24H PO SCH (07:52)
[2017-12-24] MEDS: AMIODARONE HCL 200 MG TABLET PO SCH (07:54)
[2017-12-24] MEDS: CITALOPRAM HYDROBROMIDE 20 MG TABLET PO SCH (07:54)
--- NOTE | 2017-12-24 09:22 | RADIOLOGY REPORT (SQ) ---
EXAM DESCRIPTION: CHEST SINGLE VIEW COMPLETED DATE/TIME: 12/24/2017 9:09 am REASON FOR STUDY: Pleural Effussions COMPARISON: 12/22/2017 NUMBER OF VIEWS: One view. TECHNIQUE: Single frontal radiographic image of the chest acquired. LIMITATIONS: None. FINDINGS: LUNGS AND PLEURA: Large right pleural effusion. Small left pleural effusion. No pneumoth orax. MEDIASTINUM AND HILAR STRUCTURES: Stable heart size and mediastinal structures. HEART AND VASCULAR STRUCTURES: Stable appearance. BONES: No acute findings. HARDWARE: Left dual lead pacemaker. OTHER: No other significant finding. IMPRESSION: No significant change. No pneumothorax. TECHNICAL DOCUMENTATION: JOB ID: [id number] 0675 [employer]- All Rights Reserved Reading location - IP/workstation name: [email or web address]
[2017-12-24] MEDS: DOCUSATE SODIUM 100 MG CAPSULE PO SCH ×2 (09:28→21:17)
[2017-12-24] MEDS: SACUBITRIL/VALSARTAN 24 MG/26 MG TABLET PO SCH ×2 (09:28→18:01)
[2017-12-24] MEDS: SITAGLIPTIN PHOSPHATE 50 MG TABLET PO SCH (09:28)
[2017-12-24] MEDS: FOLIC ACID 1 MG TABLET PO SCH (09:29)
[2017-12-24] MEDS: APIXABAN 2.5 MG TABLET PO SCH (09:29)
--- NOTE | 2017-12-24 12:00 | PDOC PROGRESS REPORT ---
Subjective Progress Note for:: 12/24/17 Subjective:: Patient is currently doing fair Patient had a right side big effusions Patients require more oxygenation's Reason For Visit: ACUTE OBSTRUCTIVE UROPATHY, ACUTE KIDNEY INJURY Physical Exam Vital Signs: Temp Pulse Resp BP Pulse Ox 97.2 F 110 H 18 106/79 90 L 12/24/17 07:52 12/24/17 07:52 12/24/17 07:52 12/24/17 07:52 12/24/17 07:52 Intake & Output 12/23/17 12/24/17 12/25/17 06:59 06:59 06:59 Intake Total 171 242 Output Total 1400 925 Balance -1229 -683 Weight 66.9 kg 64.7 kg General appearance: PRESENT: no acute distress, well-developed, well-nourished Head exam: PRESENT: atraumatic, normocephalic Eye exam: PRESENT: conjunctiva pink, EOMI, PERRLA. ABSENT: scleral icterus Ear exam: PRESENT: normal external ear exam Mouth exam: PRESENT: moist, tongue midline Neck exam: PRESENT: full ROM. ABSENT: carotid bruit, JVD, lymphadenopathy, thyromegaly Respiratory exam: PRESENT: clear to auscultation denita Cardiovascular exam: PRESENT: RRR. ABSENT: diastolic murmur, rubs, systolic murmur Pulses: PRESENT: normal dorsalis pedis pul, +2 pedal pulses bilateral Vascular exam: PRESENT: normal capillary refill GI/Abdominal exam: PRESENT: normal bowel sounds, soft. ABSENT: distended, guarding, mass, organolmegaly, rebound, tenderness Rectal exam: PRESENT: deferred Extremities exam: ABSENT: pedal edema Neurological exam: PRESENT: alert, awake, oriented to person, oriented to place , oriented to time, oriented to situation. ABSENT: motor sensory deficit Psychiatric exam: PRESENT: appropriate affect, normal mood. ABSENT: homicidal ideation, suicidal ideation Skin exam: PRESENT: dry, intact, warm. ABSENT: cyanosis, rash Results Laboratory Results: 12/22/17 10:18 12/22/17 10:18 Impressions: Head CT 12/03/17 02:18 IMPRESSION: No acute intracranial abnormality TECHNICAL DOCUMENTATION: Quality ID # 436: Final reports with documentation of one or more dose reduction techniques (e.g., Automated exposure control, adjustment of the mA and/or kV according to patient size, use of iterative reconstruction technique) 2010 [employer]- All Rights Reserved Thoracentesis Ultrasound 12/16/17 00:00 IMPRESSION: SUCCESSFUL THORACENTESIS USING ULTRASOUND GUIDANCE. Chest X-Ray 12/24/17 00:00 IMPRESSION: No significant change. No pneumothorax. Assessment & Plan - Diagnosis (1) Acute bilateral obstructive uropathy Is this a current diagnosis for this admission?: Yes (3) Acute systolic heart failure Is this a current diagnosis for this admission?: Yes (4) Diabetes mellitus type 2 in nonobese Is this a current diagnosis for this admission?: Yes (5) Metabolic encephalopathy Is this a current diagnosis for this admission?: Yes (6) Pleural effusion Is this a current diagnosis for this admission?: Yes (7) UTI (urinary tract infection) Qualifiers: Urinary tract infection type: site unspecified Hematuria presence: with hematuria Qualified Code(s): N39.0 - Urinary tract infection, site not specified; R31.9 - Hematuria, unspecified; R31.9 - Hematuria, unspecified Is this a current diagnosis for this admission?: Yes (8) Anemia Qualifiers: Chronic kidney disease stage: stage 3 (moderate) Is this a current diagnosis for this admission?: Yes (9) Bladder cancer Qualifiers: Bladder location: unspecified site Qualified Code(s): C67.9 - Malignant neoplasm of bladder, unspecified Is this a current diagnosis for this admission?: Yes (10) Generalized weakness Is this a current diagnosis for this admission?: Yes (11) Hypertension Qualifiers: Hypertension type: essential hypertension Qualified Code(s): I10 - Essential (primary) hypertension Is this a current diagnosis for this admission?: Yes (12) Pacemaker Is this a current diagnosis for this admission?: Yes - Time Time Spent with patient: 15-24 minutes Medications reviewed and adjusted accordingly: Yes Anticipated discharge: Other Within: Other - Inpatient Certification Medical Necessity: Need Close Monitoring Due to Risk of Patient Decompensation Post Hospital Care: D/C Dock Coordinator Documentation - Plan Summary Plan Summary: Thoracocentesis done 1 week back and remove the 1 L of the fluid and again see fluids This with the p
[2017-12-24] MEDS: INSULIN DETEMIR 100 UNIT/ML 3 ML PEN SUBCUT SCH (15:38)
[2017-12-24] MEDS: NORMAL SALINE 250 ML with FUROSEMIDE 250 MG IV PRN ×2 (21:47)
--- NOTE | 2017-12-24 22:16 | PDOC CONSULTATION ---
Consultation Consult Date: 12/24/17 Consult reason:: recurrent right pleural effusion History of Present Illness Admission Date/PCP: 12/03/17 07:39 JOHN OSBORNE MD History of Present Illness: DAREK SIMON is a 82 year old male who had a right toraentesis done by Dr Maryjane Moeller 12/16/17. This appears to have recurred with some breathing problems. Dr Yost have asked me to put a chest tube. Unfortunately, patient was given her Eloquis this am by his nurse. Past Medical History Cardiac Medical History: Reports: Congestive Heart Failure, Myocardial Infarction - pacemaker, stent, Hypertension Denies: Coronary Artery Disease Pulmonary Medical History: Reports: Chronic Obstructive Pulmonary Disease (COPD) , Sleep Apnea Denies: Asthma, Bronchitis, Pneumonia Neurological Medical History: Denies: Seizures Endocrine Medical History: Reports: Diabetes Mellitus Type 2 GI Medical History: Reports: Gastroesophageal Reflux Disease Musculoskeltal Medical History: Reports: Arthritis Psychiatric Medical History: Reports: Depression Hematology: Reports: Anemia Denies: Sickle Cell Disease Past Surgical History Past Surgical History: Reports: Cardiac Catheterization, Coronary Stent, Orthopedic Surgery, Pacemaker Social History Lives with: [facility] Smoking Status: Never Smoker Frequency of Alcohol Use: None Hx Recreational Drug Use: No Drugs: None Hx Prescription Drug Abuse: No - Advance Directive Resuscitation Status: Do Not Resuscitate Family History Family History: Reviewed & Not Pertinent Parental Family History Reviewed: Yes Children Family History Reviewed: No Sibling(s) Family History Reviewed.: No Medication/Allergy Home Medications: Amiodarone HCl [Cordarone 200 mg Tablet] 200 mg PO QAM 10/25/16 Citalopram Hydrobromide [Celexa 20 mg Tablet] 20 mg PO QAM 10/25/16 Docusate Sodium [Colace 100 mg Capsule] 100 mg PO Q12 10/25/16 Furosemide [Lasix] 60 mg PO QAM 10/25/16 Metoprolol Succinate [Toprol Xl 25 mg Tab.sr] 12.5 mg PO QAM 10/25/16 Nitroglycerin [Nitrostat] 0.4 mg SL Q5MP PRN MDD 3 TABLETS 10/25/16 Pantoprazole Sodium [Protonix] 20 mg PO Q6AM 10/25/16 Ammonium Lactate [Lac-Hydrin 12% Lotion 225Gm/Bottle] 1 applic TP Q12HP PRN Apixaban [Eliquis 2.5 mg Tablet] 2.5 mg PO Q12 11/12/17 Cranberry Fruit Extract [Cranberry 500 mg Capsule] 500 mg PO QAM 11/12/17 Insulin Aspart [Novolog Insulin 100 Unit/1 ml 10 ml] 0 unit SUBCUT ACHS Insulin Detemir [Levemir Flextouch] 10 unit SQ QAM 11/12/17 Ipratropium/Albuterol Sulfate [Duoneb 3 ml Ampul] 3 ml NEB RTQ4HP PRN 11/12/17 Linagliptin [Tradjenta] 5 mg PO QAM 11/12/17 Nystatin [Mycostatin Topical Powder 15 gm] 1 applic TP BID MDD APPLY TO GROIN Clotrimazole 1% Cream [Lotrimin 1% Cream 15 gm] 1 applic TP BID tube 11/26/17 Valsartan [Diovan 80 mg Tablet] 80 mg PO DAILY #30 tablet 11/26/17 Acetaminophen [Tylenol 325 mg Tablet] 650 mg PO Q4HP PRN 12/03/17 Folic Acid [Folvite 1 mg Tablet] 1 mg PO DAILY 12/03/17 Allergies/Adverse Reactions: No Known Drug Allergies Allergy (Verified 12/16/17 18:49) Review of Systems Eyes: PRESENT: other - no visual/hearing changes Nose, Mouth, and Throat: PRESENT: other - no sore throat Cardiovascular: PRESENT: other - no chest pains Respiratory: PRESENT: dyspnea Gastrointestinal: PRESENT: other - no pains Endocrine: PRESENT: other - no polydipsia Hematologic/Lymphatic: PRESENT: other - no easy bruising Physical Exam Vital Signs: Temp Pulse Resp BP Pulse Ox 97.7 F 110 H 28 H 120/86 H 100 12/24/17 19:31 12/24/17 20:28 12/24/17 19:31 12/24/17 19:31 12/24/17 19:39 Pulse Oximeter Continuous Start: 12/24/17 12: 58 Freq: RTQ4 Status: Active Document 12/24/17 19:39 EST (Rec: 12/24/17 19:40 EST [id number]) Pulse Oximetry Assessment Oxygen Saturation (92-100) 100 Oxygen Flow Rate (L/min) 6 Oxygen Delivery Method Oxymizer Oxygen Conserving Device Equipment Usage Equipment in Use Continuous SpO2 Machine # 13 Additional RT Notes Other Decreased to 4 L due to SPO2 of 100%. Intake & Output 12/23/17 12/24/17 12/25/17 06:59 06:59 06:59 Intake Total 171 242 124 Output Total 1400 925 200 [facility] -1229 -683 -76 Weight 66.9 kg 64.7 kg General appearance: PRESENT: mild distress Head exam: PRESENT: atraumatic Eye exam: PRESENT: conjunctiva pink Ear exam: PRESENT: normal external ear exam Mouth exam: PRESENT: moist Neck exam: PRESENT: full ROM Respiratory exam: PRESENT: decreased breath sounds - right chest Cardiovascular exam: PRESENT: RRR Pulses: PRESENT: normal radial pulses Vascular exam: PRESENT: normal capillary refill GI/Abdominal exam: PRESENT: soft Rectal exam: PRESENT: deferred Neurological exam: PRESENT: awake, oriented to person, oriented to place, oriented to time, oriented to situation Psychiatric exam: PRESENT: appropriate affect Skin exam: PRESENT: normal color, warm Results Laboratory Results: 12/22/17 10:18 12/22/17 10:18 12/24/17 04:32 Total Protein 5.9 L Impressions: Head CT 12/03/17 02:18 IMPRESSION: No acute intracranial abnormality TECHNICAL DOCUMENTATION: Quality ID # [id number]: Final reports with documentation of one or more dose reduction techniques (e.g., Automated exposure control, adjustment of the mA and/or kV according to patient size, use of iterative reconstruction technique) 2010 [employer]- All Rights Reserved Thoracentesis Ultrasound 12/16/17 00:00 IMPRESSION: SUCCESSFUL THORACENTESIS USING ULTRASOUND GUIDANCE. Chest X-Ray 12/24/17 00:00 IMPRESSION: No significant change. No pneumothorax. Assessment & Plan - Time Time Spent: 30 to 50 Minutes - Plan Summary Plan Summary: Hold Eliquis Possible right chest tube placement tomorrow pm with ultrasound guidance
[2017-12-25] MEDS: LANSOPRAZOLE 30 MG TAB.RAP.DR PO SCH (05:03)
[2017-12-25 05:27] LABS: ABSOLUTE BASOPHILS # (AUTO) 0.1 10^3/uL (0.0-0.2); ABSOLUTE EOSINOPHILS # (AUTO) 0.2 10^3/uL (0.0-0.6); ABSOLUTE LYMPHOCYTES (AUTO) 1.1 10^3/uL (0.5-4.7); ABSOLUTE MONOCYTES (AUTO) 0.8 10^3/uL (0.1-1.4); ABSOLUTE NEUT (AUTO) 6.2 10^3/uL (1.7-8.2); EOSINOPHILS % (AUTO) 2.4 % (0-6); HEMATOCRIT 37.4 % (37.9-51.0); HEMOGLOBIN 12.1 g/dL (13.5-17.0); LYMPHOCYTES % (AUTO) 12.8 % (13-45); MEAN CORPUSCULAR HEMOGLOBIN 25.6 pg (27.0-33.4); MEAN CORPUSCULAR HGB CONC 32.2 g/dL (32.0-36.0); MEAN CORPUSCULAR VOLUME 79 fl (80-97); MONOCYTES % (AUTO) 9.7 % (3-13); PLATELET COUNT 171 10^3/uL (150-450); RED BLOOD COUNT 4.72 10^6/uL (4.35-5.55); RED CELL DISTRIBUTION WIDTH 18.4 % (11.5-14.0); SEGMENTED NEUTROPHILS % (AUTO) 74.1 % (42-78); TOTAL CELLS COUNTED % (AUTO) 100 %; WHITE BLOOD COUNT 8.4 10^3/uL (4.0-10.5)
[2017-12-25 05:31] LABS: INTERNATIONAL RATION (INR) 1.49; PROTHROMBIN TIME 18.8 SEC (11.4-15.4)
[2017-12-25 05:32] LABS: PARTIAL THROMBOPLASTIN TIME 35.1 SEC (23.5-35.8)
[2017-12-25 06:02] LABS: ALANINE AMINOTRANSFERASE 17 U/L (21-72); ALBUMIN 2.8 g/dL (3.5-5.0); ALKALINE PHOSPHATASE 116 U/L (38-126); ANION GAP 10 (5-19); ASPARTATE AMINO TRANSFERASE 18 U/L (17-59); BILIRUBIN,DIRECT 0.6 mg/dL (0.0-0.4); BILIRUBIN,TOTAL 0.8 mg/dL (0.2-1.3); BLOOD UREA NITROGEN 72 mg/dL (7-20); CALCIUM 9.6 mg/dL (8.4-10.2); CARBON DIOXIDE 30 mmol/L (22-30); CHLORIDE 107 mmol/L (98-107); GLUCOSE 172 mg/dL (75-110); POTASSIUM 4.5 mmol/L (3.6-5.0); TOTAL PROTEIN 6.2 g/dL (6.3-8.2)
[2017-12-25] MEDS: CITALOPRAM HYDROBROMIDE 20 MG TABLET PO SCH (07:46)
[2017-12-25] MEDS: AMIODARONE HCL 200 MG TABLET PO SCH (07:46)
[2017-12-25] MEDS: METOPROLOL SUCCINATE 25 MG TAB.SR.24H PO SCH (07:51)
--- NOTE | 2017-12-25 10:20 | PDOC PROGRESS REPORT ---
Subjective Progress Note for:: 12/25/17 Subjective:: Patient is currently doing fair Patient had a right side big effusions Patients require more oxygenation's Reason For Visit: ACUTE OBSTRUCTIVE UROPATHY, ACUTE KIDNEY INJURY Physical Exam Vital Signs: Temp Pulse Resp BP Pulse Ox 98.2 F 112 H 28 H 99/76 L 96 12/25/17 04:00 12/25/17 07:00 12/25/17 04:00 12/25/17 04:00 12/25/17 08:00 Pulse Oximeter Continuous Start: 12/24/17 12: 58 Freq: RTQ4 Status: Active Document 12/25/17 08:00 HCR (Rec: 12/25/17 10:09 HCR [email or web address]) Pulse Oximetry Assessment Oxygen Saturation (92-100) 96 Oxygen Flow Rate (L/min) 3 Oxygen Delivery Method Nasal Cannula Equipment Usage Equipment in Use Continuous SpO2 Machine # 13 Intake & Output 12/24/17 12/25/17 12/26/17 06:59 06:59 06:59 Intake Total 242 124 Output Total 925 400 Balance -683 -276 Weight 64.7 kg 65.3 kg General appearance: PRESENT: no acute distress, well-developed, well-nourished Head exam: PRESENT: atraumatic, normocephalic Eye exam: PRESENT: conjunctiva pink, EOMI, PERRLA. ABSENT: scleral icterus Ear exam: PRESENT: normal external ear exam Mouth exam: PRESENT: moist, tongue midline Neck exam: PRESENT: full ROM. ABSENT: carotid bruit, JVD, lymphadenopathy, thyromegaly Respiratory exam: PRESENT: decreased breath sounds Cardiovascular exam: PRESENT: RRR. ABSENT: diastolic murmur, rubs, systolic murmur Pulses: PRESENT: normal dorsalis pedis pul, +2 pedal pulses bilateral Vascular exam: PRESENT: normal capillary refill GI/Abdominal exam: PRESENT: normal bowel sounds, soft. ABSENT: distended, guarding, mass, organolmegaly, rebound, tenderness Rectal exam: PRESENT: deferred Extremities exam: ABSENT: joint swelling, pedal edema Neurological exam: PRESENT: alert, awake, oriented to person. ABSENT: motor sensory deficit Psychiatric exam: PRESENT: appropriate affect, normal mood. ABSENT: homicidal ideation, suicidal ideation Skin exam: PRESENT: dry, intact, warm. ABSENT: cyanosis, rash Results Laboratory Results: 12/25/17 04:52 12/25/17 04:52 12/24/17 12/25/17 12/25/17 04:32 04:52 04:52 WBC 8.4 RBC 4.72 Hgb 12.1 L Hct 37.4 L MCV 79 L MCH 25.6 L MCHC 32.2 RDW 18.4 H Plt Count 171 Seg Neutrophils % 74.1 Lymphocytes % 12.8 L Monocytes % 9.7 Eosinophils % 2.4 Basophils % 1.0 Absolute Neutrophils 6.2 Absolute Lymphocytes 1.1 Absolute Monocytes 0.8 Absolute Eosinophils 0.2 Absolute Basophils 0.1 Sodium 147.0 H Potassium 4.5 Chloride 107 Carbon Dioxide 30 Anion Gap 10 BUN 72 H Creatinine 2.40 H Est GFR ( Amer) 31 L Est GFR (Non-Af Amer) 26 L Glucose 172 H Calcium 9.6 Total Bilirubin 0.8 AST 18 ALT 17 L Alkaline Phosphatase 116 Total Protein 5.9 L 6.2 L Albumin 2.8 L Impressions: Head CT 12/03/17 02:18 IMPRESSION: No acute intracranial abnormality TECHNICAL DOCUMENTATION: Quality ID # 436: Final reports with documentation of one or more dose reduction techniques (e.g., Automated exposure control, adjustment of the mA and/or kV according to patient size, use of iterative reconstruction technique) 2010 [employer]- All Rights Reserved Thoracentesis Ultrasound 12/16/17 00:00 IMPRESSION: SUCCESSFUL THORACENTESIS USING ULTRASOUND GUIDANCE. Chest X-Ray 12/24/17 00:00 IMPRESSION: No significant change. No pneumothorax. Assessment & Plan - Diagnosis (1) Acute bilateral obstructive uropathy Is this a current diagnosis for this admission?: Yes (3) Acute systolic heart failure Is this a current diagnosis for this admission?: Yes (4) Diabetes mellitus type 2 in nonobese Is this a current diagnosis for this admission?: Yes (5) Metabolic encephalopathy Is this a current diagnosis for this admission?: Yes (6) Pleural effusion Is this a current diagnosis for this admission?: Yes (7) UTI (urinary tract infection) Qualifiers: Urinary tract infection type: site unspecified Hematuria presence: with hematuria Qualified Code(s): N39.0 - Urinary tract infection, site not specified; R31.9 - Hematuria, unspecified; R31.9 - Hematuria, unspecified Is this a current diagnosis for this admission?: Yes (8) Anemia Qualifiers: Chronic kidney disease stage: stage 3 (moderate) Is this a current diagnosis for this admission?: Yes (9) Bladder cancer Qualifiers: Bladder location: unspecified site Qualified Code(s): C67.9 - Malignant neoplasm of bladder, unspecified Is this a current diagnosis for this admission?: Yes (10) Generalized weakness Is this a current diagnosis for this admission?: Yes (11) Hypertension Qualifiers: Hypertension type: essential hypertension Qualified Code(s): I10 - Essential (primary) hypertension Is this a current diagnosis for this admission?: Yes (12) Pacemaker Is this a current diagnosis for this admission?: Yes - Time Time Spent with patient: 15-24 minutes Medications reviewed and adjusted accordingly: Yes Anticipated discharge: Other Within: Other - Inpatient Certification Medical Necessity: Need Close Monitoring Due to Risk of Patient Decompensation Post Hospital Care: D/C [employer] Documentation - Plan Summary Plan Summary: lise mayes
[2017-12-25] MEDS: FOLIC ACID 1 MG TABLET PO SCH (10:31)
[2017-12-25] MEDS: DOCUSATE SODIUM 100 MG CAPSULE PO SCH (10:31)
[2017-12-25] MEDS: SITAGLIPTIN PHOSPHATE 50 MG TABLET PO SCH (10:34)
[2017-12-25] MEDS: INSULIN DETEMIR 100 UNIT/ML 3 ML PEN SUBCUT SCH (10:50)
[2017-12-25] MEDS: FUROSEMIDE INJ/PF 20 MG/2 ML SDV IV SCH ×2 (11:08→23:19)
[2017-12-25] MEDS: SACUBITRIL/VALSARTAN 24 MG/26 MG TABLET PO SCH ×2 (11:12→18:35)
--- NOTE | 2017-12-25 18:17 | PDOC CONSULTATION ---
Consultation Consult Date: 12/24/17 Attending physician:: JACOB LEE Consult reason:: large recurrent r pleural effusion History of Present Illness Admission Date/PCP: 12/03/17 07:39 JOHN OSBORNE MD History of Present Illness: DAREK SIMON is a 82 year old male,Recurrent presenting with recurring massive right-sided pleural effusion is approximately 8 days status post thoracentesis with removal of 1100 cc he has multiple medical problems including congestive heart failure diabetes coronary artery disease,Over the last several hours he increasingly more dyspneic and required increasedl oxygen Past Medical History Cardiac Medical History: Reports: Congestive Heart Failure, Myocardial Infarction - pacemaker, stent, Hypertension Denies: Coronary Artery Disease Pulmonary Medical History: Reports: Chronic Obstructive Pulmonary Disease (COPD) , Sleep Apnea Denies: Asthma, Bronchitis, Pneumonia Neurological Medical History: Denies: Seizures Endocrine Medical History: Reports: Diabetes Mellitus Type 2 GI Medical History: Reports: Gastroesophageal Reflux Disease Musculoskeltal Medical History: Reports: Arthritis Psychiatric Medical History: Reports: Depression Hematology: Reports: Anemia Denies: Sickle Cell Disease Past Surgical History Past Surgical History: Reports: Cardiac Catheterization, Coronary Stent, Orthopedic Surgery, Pacemaker Social History Lives with: Senior Living Smoking Status: Never Smoker Frequency of Alcohol Use: None Hx Recreational Drug Use: No Drugs: None Hx Prescription Drug Abuse: No - Advance Directive Resuscitation Status: Do Not Resuscitate Family History Parental Family History Reviewed: No Children Family History Reviewed: No Sibling(s) Family History Reviewed.: No Medication/Allergy Home Medications: Amiodarone HCl [Cordarone 200 mg Tablet] 200 mg PO QAM 10/25/16 Citalopram Hydrobromide [Celexa 20 mg Tablet] 20 mg PO QAM 10/25/16 Docusate Sodium [Colace 100 mg Capsule] 100 mg PO Q12 10/25/16 Furosemide [Lasix] 60 mg PO QAM 10/25/16 Metoprolol Succinate [Toprol Xl 25 mg Tab.sr] 12.5 mg PO QAM 10/25/16 Nitroglycerin [Nitrostat] 0.4 mg SL Q5MP PRN MDD 3 TABLETS 10/25/16 Pantoprazole Sodium [Protonix] 20 mg PO Q6AM 10/25/16 Ammonium Lactate [Lac-Hydrin 12% Lotion 225Gm/Bottle] 1 applic TP Q12HP PRN Apixaban [Eliquis 2.5 mg Tablet] 2.5 mg PO Q12 11/12/17 Cranberry Fruit Extract [Cranberry 500 mg Capsule] 500 mg PO QAM 11/12/17 Insulin Aspart [Novolog Insulin 100 Unit/1 ml 10 ml] 0 unit SUBCUT ACHS Insulin Detemir [Levemir Flextouch] 10 unit SQ QAM 11/12/17 Ipratropium/Albuterol Sulfate [Duoneb 3 ml Ampul] 3 ml NEB RTQ4HP PRN 11/12/17 Linagliptin [Tradjenta] 5 mg PO QAM 11/12/17 Nystatin [Mycostatin Topical Powder 15 gm] 1 applic TP BID MDD APPLY TO GROIN Clotrimazole 1% Cream [Lotrimin 1% Cream 15 gm] 1 applic TP BID tube 11/26/17 Valsartan [Diovan 80 mg Tablet] 80 mg PO DAILY #30 tablet 11/26/17 Acetaminophen [Tylenol 325 mg Tablet] 650 mg PO Q4HP PRN 12/03/17 Folic Acid [Folvite 1 mg Tablet] 1 mg PO DAILY 12/03/17 Allergies/Adverse Reactions: No Known Drug Allergies Allergy (Verified 12/16/17 18:49) Review of Systems ROS unobtainable: Due to mental status Physical Exam Vital Signs: Temp Pulse Resp BP Pulse Ox 97.2 F 110 H 18 106/79 90 L 12/24/17 07:52 12/24/17 07:52 12/24/17 07:52 12/24/17 07:52 12/24/17 07:52 Intake & Output 12/23/17 12/24/17 12/25/17 06:59 06:59 06:59 Intake Total 171 242 Output Total 1400 925 Balance -1229 -683 Weight 66.9 kg 64.7 kg General appearance: PRESENT: no acute distress, disheveled. ABSENT: cooperative Head exam: PRESENT: atraumatic, normocephalic Eye exam: PRESENT: conjunctiva pale. ABSENT: EOMI, nystagmus, periorbital swelling, scleral icterus Mouth exam: PRESENT: dry mucosa, neck supple, tongue midline Neck exam: ABSENT: carotid bruit, JVD, lymphadenopathy, thyromegaly, tracheal deviation, tracheostomy Respiratory exam: PRESENT: decreased breath sounds - Especially right hemithorax , prolonged expiratory phas, rales, rhonchi. ABSENT: retraction, stridor Cardiovascular exam: PRESENT: RRR, +S1, +S2 Pulses: PRESENT: normal radial pulses GI/Abdominal exam: PRESENT: diminished bowel sounds, soft. ABSENT: tenderness Gentrourinary exam: PRESENT: indwelling catheter Extremities exam: ABSENT: calf tenderness, clubbing, full ROM, joint swelling Musculoskeletal exam: ABSENT: ambulatory, deformity, dislocation Neurological exam: ABSENT: awake Skin exam: PRESENT: dry, warm Results Laboratory Results: 12/22/17 10:18 12/22/17 10:18 Impressions: Head CT 12/03/17 02:18 IMPRESSION: No acute intracranial abnormality TECHNICAL DOCUMENTATION: Quality ID # 436: Final reports with documentation of one or more dose reduction techniques (e.g., Automated exposure control, adjustment of the mA and/or kV according to patient size, use of iterative reconstruction technique) 2010 [employer]- All Rights Reserved Thoracentesis Ultrasound 12/16/17 00:00 IMPRESSION: SUCCESSFUL THORACENTESIS USING ULTRASOUND GUIDANCE. Chest X-Ray 12/24/17 00:00 IMPRESSION: No significant change. No pneumothorax. Assessment & Plan - Diagnosis (1) Metabolic encephalopathy Is this a current diagnosis for this admission?: Yes Plan: Obtunded (2) Pleural effusion Is this a current diagnosis for this admission?: Yes Plan: Patient had a thoracentesis with removal of 01.1 liters in the effusion recurred suggest placing of the chest chest tube is patient is a resident of [place] and a Pleurodex catheter would probably not be acceptable at this time says that her cytology be performed on the current pleural fluid in view of his history of bladder cancer,We will consult surgery (3) Pseudomonas urinary tract infection Is this a current diagnosis for this admission?: Yes
[2017-12-25] MEDS ORDERED: LIDOCAINE 1% INJ-PF (10 MG/ML) 30 ML SDV ONE (19:19)
[2017-12-25] MEDS ORDERED: MORPHINE SULFATE 10 MG/ML INJ IV PRN (20:24)
--- NOTE | 2017-12-25 21:25 | RADIOLOGY REPORT (SQ) ---
EXAM DESCRIPTION: CHEST SINGLE VIEW COMPLETED DATE/TIME: 12/25/2017 8:14 pm REASON FOR STUDY: Chest tube placement verification COMPARISON: Chest x-ray 12/24/2017 EXAM PARAMETERS: NUMBER OF VIEWS: One view. TECHNIQUE: Single frontal radiographic view of the chest acquired. RADIATION DOSE: NA LIMITATIONS: None. FINDINGS: LUNGS AND PLEURA: Interval decrease in the right-sided pleural effusion with small right-s ided pleural fluid remaining. Interval improvement in the aeration of the right lung. There is a sm all left-sided pleural effusion. Airspace opacities are seen at the right upper lobe and left lung b ase. There is a small pneumothorax at the right lung apex measuring 2.1 cm. MEDIASTINUM AND HILAR STRUCTURES: No masses. Contour normal. HEART AND VASCULAR STRUCTURES: The heart is enlarged. There is no overt vascular congestion. BONES: Orthopedic hardware noted at the left shoulder. HARDWARE: Interval placement of a large-bore chest tube with the tip overlying the medial right lower hemithorax. There is adjacent small amount of subcutaneous emphysema at the right lateral chest wal l. There is a left-sided pacemaker. IMPRESSION: 1. Interval development of small right-sided pneumothorax. Interval decrease in the rig ht-sided pleural effusion with small amount of right pleural fluid remaining interval improvement in the aeration of the right lung. Interval placement of a large-bore right-sided chest tube with the ti p at the medial right lower hemithorax and small amount of subcutaneous emphysema at the right latera l chest wall. 2. Small left-sided pleural effusion. Airspace opacities at the right upper lobe and left lung base. 3. Cardiomegaly. COMMENT: Pertinent findings on the imaging study reported as a CRITICAL RESULT to FLORA LOO MD at21:22 hrs on 12/25/2017. Category of Critical Result: Pneumothorax. TECHNICAL DOCUMENTATION: JOB ID: [id number] [place]-64 2010 [employer]- All Rights Reserved Reading location - IP/workstation name: [email or web address]
[2017-12-25 22:13] LABS: FLUID SOURCE LUNG; FLUID TYPE PLEURAL
[2017-12-25 22:14] LABS: FLUID APPEARANCE OPAQUE; FLUID COLOR YELLOW; FLUID VISCOSITY LIQUID
[2017-12-25] MEDS: NORMAL SALINE 1000 ML 1,000 ML IV PRN (22:45)
[2017-12-26] MEDS: DOCUSATE SODIUM 100 MG CAPSULE PO SCH ×3 (00:23→23:14)
[2017-12-26] MEDS ORDERED: DEXTROSE 5%-WATER 250 ML with PHENYLEPHRINE HCL 40 MG IV PRN ×2 (03:28)
[2017-12-26] MEDS: NORMAL SALINE 1000 ML 1,000 ML IV PRN (03:52)
[2017-12-26 04:06] LABS: ABSOLUTE EOSINOPHILS # (AUTO) 0.2 10^3/uL (0.0-0.6); ABSOLUTE LYMPHOCYTES (AUTO) 0.9 10^3/uL (0.5-4.7); ABSOLUTE NEUT (AUTO) 9.8 10^3/uL (1.7-8.2); BASOPHILS % (AUTO) 0.3 % (0-2); EOSINOPHILS % (AUTO) 1.3 % (0-6); HEMATOCRIT 37.6 % (37.9-51.0); HEMOGLOBIN 11.6 g/dL (13.5-17.0); MEAN CORPUSCULAR HEMOGLOBIN 24.3 pg (27.0-33.4); MEAN CORPUSCULAR HGB CONC 30.8 g/dL (32.0-36.0); MEAN CORPUSCULAR VOLUME 79 fl (80-97); PLATELET COUNT 153 10^3/uL (150-450); RED BLOOD COUNT 4.76 10^6/uL (4.35-5.55); RED CELL DISTRIBUTION WIDTH 18.5 % (11.5-14.0); SEGMENTED NEUTROPHILS % (AUTO) 82.4 % (42-78); TOTAL CELLS COUNTED % (AUTO) 100 %; WHITE BLOOD COUNT 11.9 10^3/uL (4.0-10.5)
[2017-12-26 04:41] LABS: CREATINE KINASE MB 0.84 ng/mL (<4.55)
[2017-12-26 05:01] LABS: TROPONIN I < 0.012 ng/mL
[2017-12-26 05:25] LABS: ANION GAP 9 (5-19); BLOOD UREA NITROGEN 74 mg/dL (7-20); CALCIUM 9.1 mg/dL (8.4-10.2); CARBON DIOXIDE 27 mmol/L (22-30); CHLORIDE 109 mmol/L (98-107); CREATINE KINASE 21 U/L (55-170); GLUCOSE 152 mg/dL (75-110); POTASSIUM 4.6 mmol/L (3.6-5.0); SODIUM 144.9 mmol/L (137-145)
--- NOTE | 2017-12-26 07:37 | EKG REPORT ---
SEVERITY:- ABNORMAL ECG - ACCELERATED JUNCTIONAL ESCAPE RHYTHM NONSPECIFIC INTRAVENTRICULAR CONDUCTION DELAY ST DEPRESSION, CONSIDER ISCHEMIA, ANT-LAT LDS, NO CHANGE FROM 11/18/17 EKG : Confirmed by: Escobar Watters MD 26-Dec-2017 07:36:58
--- NOTE | 2017-12-26 08:26 | OPERATIVE REPORT E ---
Operative Report NAME: DAREK SIMON : 1935 AGE: 82Y DATE OF SURGERY: 12/25/2017 ROOM: 603 PREOPERATIVE DIAGNOSIS: Recurrent right pleural effusion. POSTOPERATIVE DIAGNOSIS: Recurrent right pleural effusion. PROCEDURE: Placement of right chest tube under ultrasound guidance. SURGEON: FLORA LOO M.D. INDICATIONS: This is an 82-year-old male with a history of congestive heart failure who had a right pleural effusion drained by the interventional radiologist under ultrasound guidance on 12/16/2017. Pleural effusion recurred and patient had desaturation of pulse ox. DESCRIPTION OF PROCEDURE: Patient was placed in semi-erect position and slightly rotated to the left. The i&c tech identified an area on the right lateral axillary area around the fifth or sixth intercostal space. This was then marked. The right chest was then prepped and draped in the usual sterile fashion. Local anesthesia was infiltrated just above the palpable rib at the mid axillary line. A long needle was inserted and aspirated pleural effusion, indicating the right spot. Next, an incision was made over the sixth rib and deepened with the use of a hemostat. Further local anesthesia was infiltrated along the pleura. At this time the pleura was then punctured with a hemostat and some fluid gushed out as well as air. Next, a 28-B[place] Sodus chest tube was then inserted into the chest up to a distance of about 8 to 9 cm. This was then anchored to the skin with 0 silk. Vaseline gauze was then placed over the insertion site. The chest tube was connected to a Pleur-evac and hooked to suction, initially draining about 500 mL of clear yellowish fluid. A sterile 4 x 4 was then placed over the Vaseline gauze around the chest tube and taped nicely with 2 inch silk tape. The connection also within the chest tube and Pleur-evac was also checked to make sure there was no disconnection. The patient tolerated the procedure well. A chest x-ray will be obtained for placement. DICTATING PHYSICIAN: FLORA LOO M.D. [id number] PHY#: [id number] 2019 ID: [id number] JOB#: [id number] ACCT: [id number] cc:FLORA LOO M.D. >
--- NOTE | 2017-12-26 08:45 | RADIOLOGY REPORT (SQ) ---
EXAM DESCRIPTION: U/S CHEST COMPLETED DATE/TIME: 12/25/2017 7:47 pm REASON FOR STUDY: INSERT CHEST TUBE FOR PLEURAL EFFUSION COMPARISON: 12/16/2017 TECHNIQUE: Transverse and longitudinal images of the right chest wall. LIMITATIONS: None. FINDINGS: Right moderate pleural effusion. A measurement of 4.9 cm was obtained from the skin surfa ce to the midportion of the right pleural effusion. The examination was performed for the purpose of chest tube insertion. The patient's provider is aware that the examination has been performed. IMPRESSION: 1 Right moderate pleural effusion. TECHNICAL DOCUMENTATION: JOB ID: [id number] [employer]- All Rights Reserved Reading location - IP/workstation name: [email or web address]
[2017-12-26] MEDS ORDERED: PHENYLEPHRINE HCL INJ/PF 10 MG/1 ML SDV ONE (09:18)
[2017-12-26 10:47] LABS: CREATINE KINASE MB 1.23 ng/mL (<4.55)
[2017-12-26 10:53] LABS: TROPONIN I < 0.012 ng/mL
[2017-12-26] MEDS: SACUBITRIL/VALSARTAN 24 MG/26 MG TABLET PO SCH ×2 (11:07→18:20)
[2017-12-26] MEDS: LANSOPRAZOLE 30 MG TAB.RAP.DR PO SCH (12:17)
[2017-12-26] MEDS: CITALOPRAM HYDROBROMIDE 20 MG TABLET PO SCH (12:17)
[2017-12-26] MEDS: METOPROLOL SUCCINATE 25 MG TAB.SR.24H PO SCH (12:18)
[2017-12-26] MEDS: AMIODARONE HCL 200 MG TABLET PO SCH (12:18)
[2017-12-26] MEDS: FOLIC ACID 1 MG TABLET PO SCH (12:18)
--- NOTE | 2017-12-26 12:43 | RADIOLOGY REPORT (SQ) ---
EXAM DESCRIPTION: CHEST SINGLE VIEW COMPLETED DATE/TIME: 12/26/2017 9:17 am REASON FOR STUDY: follow up pneumothorax and effusaion COMPARISON: 12/25/2017 NUMBER OF VIEWS: One view. TECHNIQUE: Single frontal radiographic image of the chest acquired. LIMITATIONS: Positioning. FINDINGS: LUNGS AND PLEURA: Right apical pneumothorax approximately 10% not significantly changed. Persistent volume loss on the right with some re-expansion edema. The left lung is clear. MEDIASTINUM AND HEART: Stable heart size and mediastinal structures. SUPPORT DEVICES: Appropriate location without change. BONY STRUCTURES: No acute findings. HARDWARE: None. OTHER: No other significant finding. IMPRESSION: Right apical pneumothorax. No significant change. Reading location - IP/workstation name: [email or web address]
[2017-12-26] MEDS: INSULIN DETEMIR 100 UNIT/ML 3 ML PEN SUBCUT SCH (13:55)
[2017-12-26] MEDS: SITAGLIPTIN PHOSPHATE 50 MG TABLET PO SCH (13:56)
[2017-12-26] MEDS ORDERED: NORMAL SALINE INJ/PF 0.9% 10 ML SDV IV PRN (15:24)
--- NOTE | 2017-12-26 15:26 | Operative Report ---
Operative Report DATE OF SURGERY: 12/26/17 PREOPERATIVE DIAGNOSIS: Shock POSTOPERATIVE DIAGNOSIS: Same OPERATION: 1. Focused ultrasound of the right neck. 2. Ultrasound directed insertion of triple-lumen central venous access catheter right internal jugular vein SURGEON: SULEMAN NIETO ANESTHESIA: Local TISSUE REMOVED OR ALTERED: none COMPLICATIONS: none ESTIMATED BLOOD LOSS: scant INTRAOPERATIVE FINDINGS: see below PROCEDURE: Informed consent was obtained. The patient was placed in Trendelenburg the right neck and chest wall were exposed, and prepped and draped in a sterile fashion. Surgical plan and surgical timeout discussed. The right neck was anesthetized with 1% lidocaine without epinephrine. Using the variable frequency linear transducer, real time, a 18-gauge needle and wire were threaded into the right internal jugular vein. The tract was dilated up, the dilator removed, and the triple-lumen central venous access catheter was threaded into the right internal jugular vein uneventfully to the hub. There was excellent aspiration and flush of saline through all 3 lumens. The catheter was affixed to the skin with a Biopatch and 2-0 silk suture; sterile dressing applied. The patient tolerated the procedure well. There were no complications. Portable upright chest x-ray pending at time of dictation.
--- NOTE | 2017-12-26 16:16 | RADIOLOGY REPORT (SQ) ---
EXAM DESCRIPTION: CHEST SINGLE VIEW COMPLETED DATE/TIME: 12/26/2017 3:57 pm REASON FOR STUDY: CENTRAL LINE PLACEMENT COMPARISON: 12/26/2017 EXAM PARAMETERS: NUMBER OF VIEWS: One view. TECHNIQUE: Single frontal radiographic view of the chest acquired. RADIATION DOSE: NA LIMITATIONS: None. FINDINGS: LUNGS AND PLEURA: Stable airspace disease in the right lung with loss of volume. The lef t lung remains clear. MEDIASTINUM AND HILAR STRUCTURES: No masses. Contour normal. HEART AND VASCULAR STRUCTURES: Heart normal in size. Normal vasculature. BONES: No acute findings. HARDWARE: Interval placement of right internal jugular line with the tip in the region of the right atrium. Right chest tube, unchanged finding. Cardiac pacemaker, unchanged finding. Left shoulder a rthroplasty, unchanged. OTHER: No other significant finding. IMPRESSION: 1 Interval placement of right internal jugular venous line since the prior examination w ith the tip in the region of the right atrium. 2 No other significant interval changes. TECHNICAL DOCUMENTATION: JOB ID: [id number] [employer]- All Rights Reserved Reading location - IP/workstation name: [email or web address]
[2017-12-26] MEDS ORDERED: DOBUTAMINE HCL/D5W 500 MG/250 ML RTUINJ IV PRN (16:45)
[2017-12-26 17:11] LABS: CREATINE KINASE MB 1.23 ng/mL (<4.55); TROPONIN I 0.014 ng/mL
--- NOTE | 2017-12-26 17:53 | PDOC PROGRESS REPORT ---
Subjective Progress Note for:: 12/26/17 Subjective:: Patient difficult to understand; Reason For Visit: ACUTE OBSTRUCTIVE UROPATHY, ACUTE KIDNEY INJURY Physical Exam Vital Signs: Temp Pulse Resp BP Pulse Ox 97.3 F 117 H 15 103/69 98 12/26/17 14:00 12/26/17 10:00 12/26/17 14:00 12/26/17 13:59 12/26/17 14:00 Pulse Oximeter Continuous Start: 12/24/17 12: 58 Freq: RTQ4 Status: Complete Document 12/26/17 00:00 SFL (Rec: 12/26/17 00:09 SFL [email or web address]) Pulse Oximetry Assessment Oxygen Saturation (92-100) 96 Oxygen Flow Rate (L/min) 6 Oxygen Delivery Method Nasal Cannula Equipment Usage Equipment in Use Continuous Pulse Oximeter 24 Hour Charge Charge Now Continuous SpO2 Machine # 13 Intake & Output 12/25/17 12/26/17 12/27/17 06:59 06:59 06:59 Intake Total 124 988 Output Total 400 5 180 Balance -276 -1037 -180 Weight 65.3 kg 66.1 kg General appearance: PRESENT: other - Appears weak, disoriented Respiratory exam: PRESENT: other - Breath sounds markedly diminished on the right side. Medical chest tube fluctuating, approximately 800 cc of drainage overnight. No definitive air leak demonstrated Results Laboratory Results: 12/26/17 03:47 12/26/17 03:47 12/25/17 12/26/17 12/26/17 20:10 03:47 03:47 WBC 11.9 H RBC 4.76 Hgb 11.6 L Hct 37.6 L MCV 79 L MCH 24.3 L MCHC 30.8 L RDW 18.5 H Plt Count 153 Seg Neutrophils % 82.4 H Lymphocytes % 8.0 L Monocytes % 8.0 Eosinophils % 1.3 Basophils % 0.3 Absolute Neutrophils 9.8 H Absolute Lymphocytes 0.9 Absolute Monocytes 1.0 Absolute Eosinophils 0.2 Absolute Basophils 0.0 Sodium 144.9 Potassium 4.6 Chloride 109 H Carbon Dioxide 27 Anion Gap 9 BUN 74 H Creatinine 2.52 H Est GFR ( Amer) 30 L Est GFR (Non-Af Amer) 25 L Glucose 152 H Calcium 9.1 Magnesium 1.8 Fluid Type PLEURAL Fluid Source LUNG Fluid Color YELLOW Fluid Appearance [place] Fluid Viscosity LIQUID Fluid WBC 353 Fluid RBC 3100 12/16/17 12:45 Pleural Fluid Viral Culture - Final 12/26/17 12/26/17 12/26/17 03:47 03:47 09:59 Creatine Kinase 21 L 23 L CK-MB (CK-2) 0.84 Troponin I < 0.012 12/26/17 12/26/17 12/26/17 09:59 16:15 16:15 Creatine Kinase 26 L CK-MB (CK-2) 1.23 1.23 Troponin I < 0.012 0.014 Impressions: Head CT 12/03/17 02:18 IMPRESSION: No acute intracranial abnormality TECHNICAL DOCUMENTATION: Quality ID # 436: Final reports with documentation of one or more dose reduction techniques (e.g., Automated exposure control, adjustment of the mA and/or kV according to patient size, use of iterative reconstruction technique) 2010 [employer]- All Rights Reserved Thoracentesis Ultrasound 12/16/17 00:00 IMPRESSION: SUCCESSFUL THORACENTESIS USING ULTRASOUND GUIDANCE. Chest Ultrasound 12/25/17 00:00 IMPRESSION: 1 Right moderate pleural effusion. Chest X-Ray 12/26/17 07:00 IMPRESSION: Right apical pneumothorax. No significant change. Assessment & Plan - Diagnosis (1) Pleural effusion Is this a current diagnosis for this admission?: Yes Plan: Status post 28 [place] right thoracostomy tube placement by Dr. Abrams yesterday ; by this afternoon, the lung appears expanded however he has developed interval opacities consistent with pneumonia Recommendations: Leave chest tube to gentle suction as is. Patient DNR status; now with progressive airspace disease. Patient's prognosis poor.
--- NOTE | 2017-12-26 21:36 | PDOC PROGRESS REPORT ---
Subjective Progress Note for:: 12/26/17 Subjective:: Patient was seen by the bedside, baseline dementia, chest tube was inserted for the management of recurrent pleural effusion on the right side, presently in ICU , with downgraded to IMCU patient DNR status, suprapubic catheter in place decreased urinary output, poor prognosis Reason For Visit: ACUTE OBSTRUCTIVE UROPATHY, ACUTE KIDNEY INJURY Physical Exam Vital Signs: Temp Pulse Resp BP Pulse Ox 97.5 F 117 H 22 H 109/72 99 12/26/17 18:00 12/26/17 10:00 12/26/17 18:01 12/26/17 17:50 12/26/17 18:01 Pulse Oximeter Continuous Start: 12/24/17 12: 58 Freq: RTQ4 Status: Complete Document 12/26/17 00:00 [facility] (Rec: 12/26/17 00:09 SFL [id number]) Pulse Oximetry Assessment Oxygen Saturation (92-100) 96 Oxygen Flow Rate (L/min) 6 Oxygen Delivery Method Nasal Cannula Equipment Usage Equipment in Use Continuous Pulse Oximeter 24 Hour Charge Charge Now Continuous SpO2 Machine # 13 Intake & Output 12/25/17 12/26/17 12/27/17 06:59 06:59 06:59 Intake Total 158 228 2300 Output Total 400 2025 580 Balance -276 -1037 420 Weight 65.3 kg 66.1 kg General appearance: PRESENT: mild distress Eye exam: PRESENT: PERRLA Respiratory exam: PRESENT: decreased breath sounds Cardiovascular exam: PRESENT: +S1, +S2 Neurological exam: PRESENT: alert Results Laboratory Results: 12/26/17 03:47 12/26/17 03:47 12/25/17 12/26/17 12/26/17 20:10 03:47 03:47 WBC 11.9 H RBC 4.76 Hgb 11.6 L Hct 37.6 L MCV 79 L MCH 24.3 L MCHC 30.8 L RDW 18.5 H Plt Count 153 Seg Neutrophils % 82.4 H Lymphocytes % 8.0 L Monocytes % 8.0 Eosinophils % 1.3 Basophils % 0.3 Absolute Neutrophils 9.8 H Absolute Lymphocytes 0.9 Absolute Monocytes 1.0 Absolute Eosinophils 0.2 Absolute Basophils 0.0 Sodium 144.9 Potassium 4.6 Chloride 109 H Carbon Dioxide 27 Anion Gap 9 BUN 74 H Creatinine 2.52 H Est GFR ( Amer) 30 L Est GFR (Non-Af Amer) 25 L Glucose 152 H Calcium 9.1 Magnesium 1.8 Fluid Type PLEURAL Fluid Source LUNG Fluid Color YELLOW Fluid Appearance [place] Fluid Viscosity LIQUID Fluid WBC 353 Fluid RBC 3100 12/16/17 12:45 Pleural Fluid Viral Culture - Final 12/26/17 12/26/17 12/26/17 03:47 03:47 09:59 Creatine Kinase 21 L 23 L CK-MB (CK-2) 0.84 Troponin I < 0.012 12/26/17 12/26/17 12/26/17 09:59 16:15 16:15 Creatine Kinase 26 L CK-MB (CK-2) 1.23 1.23 Troponin I < 0.012 0.014 Impressions: Head CT 12/03/17 02:18 IMPRESSION: No acute intracranial abnormality TECHNICAL DOCUMENTATION: Quality ID # 436: Final reports with documentation of one or more dose reduction techniques (e.g., Automated exposure control, adjustment of the mA and/or kV according to patient size, use of iterative reconstruction technique) 2010 [employer]- All Rights Reserved Thoracentesis Ultrasound 12/16/17 00:00 IMPRESSION: SUCCESSFUL THORACENTESIS USING ULTRASOUND GUIDANCE. Chest Ultrasound 12/25/17 00:00 IMPRESSION: 1 Right moderate pleural effusion. Chest X-Ray 12/26/17 07:00 IMPRESSION: Right apical pneumothorax. No significant change. Assessment & Plan - Diagnosis (1) Pseudomonas urinary tract infection Is this a current diagnosis for this admission?: Yes (2) Chronic atrial fibrillation Is this a current diagnosis for this admission?: Yes (3) Diabetes mellitus type 2 in nonobese Is this a current diagnosis for this admission?: Yes (4) Catheter-associated urinary tract infection Qualifiers: Indwelling urinary catheter type: cystostomy catheter Encounter type: initial encounter Qualified Code(s): T83.510A - Infection and inflammatory reaction due to cystostomy catheter, initial encounter; N39.0 - Urinary tract infection, site not specified; N39.0 - Urinary tract infection, site not specified Is this a current diagnosis for this admission?: Yes (5) Obstructed suprapubic catheter Qualifiers: Encounter type: initial encounter Qualified Code(s): T83.090A - Other mechanical complication of cystostomy catheter, initial encounter Is this a current diagnosis for this admission?: Yes (6) Metabolic encephalopathy Is this a current diagnosis for this admission?: Yes (7) Pleural effusion Is this a current diagnosis for this admission?: Yes (8) Acute systolic heart failure Is this a current diagnosis for this admission?: Yes
[2017-12-27] MEDS: LANSOPRAZOLE 30 MG TAB.RAP.DR PO SCH (06:09)
[2017-12-27 08:46] LABS: ABSOLUTE BASOPHILS # (AUTO) 0.1 10^3/uL (0.0-0.2); ABSOLUTE EOSINOPHILS # (AUTO) 0.1 10^3/uL (0.0-0.6); ABSOLUTE MONOCYTES (AUTO) 0.8 10^3/uL (0.1-1.4); ABSOLUTE NEUT (AUTO) 6.5 10^3/uL (1.7-8.2); BASOPHILS % (AUTO) 0.6 % (0-2); EOSINOPHILS % (AUTO) 1.4 % (0-6); HEMOGLOBIN 10.4 g/dL (13.5-17.0); LYMPHOCYTES % (AUTO) 11.4 % (13-45); MEAN CORPUSCULAR HEMOGLOBIN 25.9 pg (27.0-33.4); MEAN CORPUSCULAR HGB CONC 32.6 g/dL (32.0-36.0); MEAN CORPUSCULAR VOLUME 79 fl (80-97); MONOCYTES % (AUTO) 9.2 % (3-13); PLATELET COUNT 155 10^3/uL (150-450); RED BLOOD COUNT 4.02 10^6/uL (4.35-5.55); RED CELL DISTRIBUTION WIDTH 18.3 % (11.5-14.0); SEGMENTED NEUTROPHILS % (AUTO) 77.4 % (42-78); TOTAL CELLS COUNTED % (AUTO) 100 %; WHITE BLOOD COUNT 8.4 10^3/uL (4.0-10.5)
[2017-12-27 09:05] LABS: ANION GAP 7 (5-19); BLOOD UREA NITROGEN 66 mg/dL (7-20); CALCIUM 9.1 mg/dL (8.4-10.2); CARBON DIOXIDE 31 mmol/L (22-30); CHLORIDE 108 mmol/L (98-107); GLUCOSE 131 mg/dL (75-110); POTASSIUM 4.3 mmol/L (3.6-5.0); SODIUM 146.1 mmol/L (137-145)
--- NOTE | 2017-12-27 10:46 | CONSULTATION REPORT E ---
Consultation Report NAME: DAREK SIMON : 1935 AGE: 82Y DATE: 12/26/2017 ROOM: 603 A TO: SUNSHINE GUPTA M.D. FROM: JOHN OSBORNE M.D. Requesting Physician REASON FOR CONSULTATION: Hypotension in a patient with history of cardiomyopathy, coronary artery disease, paroxysmal atrial fibrillation, and chronic kidney disease. Patient has dementia and, hence, history obtained from old charts. The patient's granddaughter was able to help a little bit with the history. Also, the chart was reviewed in depth, including all the labs and other tests done. Note that the patient has had a right chest tube placed yesterday for recurrent right pleural effusion. HISTORY OF PRESENT ILLNESS: The patient is an 82-year-old male with multiple medical problems, including coronary artery disease, hypertension, cardiomyopathy, chronic kidney disease, COPD, paroxysmal atrial fibrillation, and history of permanent pacemaker placement who was admitted on 12/03/2017 for obstructive uropathy. He has a suprapubic cystostomy catheter which was obstructed and he was also found to have urinary tract infection. The patient received his antibiotics and he feels better but then subsequently started having recurrent right pleural effusions and had a chest tube placed for treatment of this yesterday on the right side. The patient was transferred to the ICU for hypotension with a blood pressure of 70 systolic. Initially it was 76/55 and the patient was started on 40 mcg of Marc-Synephrine per minute and the blood pressure came up to 130/100. The patient does appear to be short of breath but denies chest pain or discomfort, and he also denies being shortness of breath. The patient continues to be in atrial tracking and ventricular paced rhythm. The patient's examination shows that there is a degree of congestive heart failure also. PAST MEDICAL HISTORY: Positive for a history of myocardial infarction, history of coronary artery disease, history of stents, history of hypertension, history of permanent pacemaker placement, history of congestive heart failure. The patient also has moderate cardiomyopathy with LV ejection fraction 35% to 40% by echo this admission. He also has a history of paroxysmal atrial fibrillation and is maintained in sinus on amiodarone, and the patient is also on Eliquis. There is no history of TIA or CVA. The patient does have dementia. He also has a history of chronic kidney disease; it seems that the patient now has acute on chronic kidney disease going from stage 3 to stage 4. He also has a history of COPD and sleep apnea; I am not sure if he uses BiPAP. He also has a history of diabetes mellitus type 2, chronic kidney disease as mentioned earlier, GERD, arthritis, and depression. PAST SURGICAL HISTORY: Positive for cardiac catheterization, coronary stent placement, orthopaedic surgery, and permanent pacemaker placement. REVIEW OF SYSTEMS: Not obtainable. SOCIAL HISTORY: The patient has never smoked. There is no history of ETOH abuse. DISPOSITION: THE PATIENT IS DNR. His daughter is his healthcare power of trademark attorney. MEDICATIONS: Have been reviewed in the medication administration record and the new additions are: The patient is on Marc-Synephrine drip at 40 mcg initially, which is now decreased to 20 mcg per minute. His last EKG shows atrial tracking and ventricular paced rhythm. PHYSICAL EXAMINATION: VITAL SIGNS: Earlier the patient's temperature was 97 degrees Fahrenheit, his pulse was 117 beats per minute, and blood pressure was 131/100 after the patient was started on Marc-Synephrine. His respirations are 27 beats per minute. His O2 sats are 96% on nasal cannula with an O2 flow rate of 6 L/min. HEENT: Head is atraumatic, normocephalic. Eyes - Pupils are equal, round, regular, reactive to light and accommodation. Extraocular movements are normal. Ears - Tympanic membranes are intact. External auditory canals are clear. Nose - There is no deviated nasal septum. There is no inflammation of the nasal mucous membranes. Mouth - Mucous membranes of the mouth are moist. Tongue is moist. There are no ulcers. There is no bleeding from the gums. Throat - There is no redness of the oropharynx. There are no exudates. SKIN: There are no skin rashes. There is no petechia or ecchymosis. There are no skin lesions. NECK: Supple. There is mild JVD present. Carotids are equal. There is no bruit. There is no lymphadenopathy. There is no goiter. CHEST: There is a right chest tube present. There is no chest wall tenderness. LUNGS: Show diminished air entry, prolonged expiration, absent breath sounds in the bases, and above that there are bibasilar rales of CHF. HEART: S1, S2 is heard. There is no S3 gallop. There is no S4 gallop. S1 is of normal intensity. There is a systolic murmur at the left sternal border and the apex. There is no rub. ABDOMEN: Soft, nontender. There is no hepatosplenomegaly. Bowel sounds are well heard. There are no tender areas or masses. There is a suprapubic cystostomy catheter in situ which is draining urine. EXTREMITIES: Femorals are diminished. Leg pulses are diminished. There is trace pedal edema bilaterally. There is no DVT or cellulitis. There is no calf tenderness. CENTRAL NERVOUS SYSTEM: The patient is conscious, confused, but moves all 4 extremities. PSYCHIATRIC: The patient does not appear to be agitated. A full psychiatric exam could not be done. DIAGNOSTICS: The patient's chest x-ray shows right apical pneumothorax approximately 10%, not sufficiently changed. There is persistent volume loss on the right with re-expansion edema. The left lung is clear. Earlier there were bilateral pleural effusions. The patient had an echocardiogram done on 12/19/2017. It shows the left ventricle is mildly dilated. There is normal left ventricular wall thickness. LV ejection fraction is 35% to 40%, and it is moderately reduced. There is no true 2-chamber apical view obtained; hence, cannot comment on the apical and basilar anterior reid and the apical and basilar inferior reid. The mid anterior and mid inferior rest of the reid show moderate hypokinesis. The patient's right ventricle is mild to moderately dilated. There is a pacemaker lead in the right ventricle. The right ventricular systolic function is mildly reduced. There is no mitral valve prolapse. There is no mitral stenosis. There is no mitral regurgitation. There is no aortic stenosis or aortic regurgitation. There is no tricuspid regurgitation. There is mild pulmonary hypertension. *------* 38 mmHg with an RA mean of 15 to 20. There is at least moderate TR, if not severe. The patient's 24-hour intake was 988 mL, output was 2025 mL. The patient's lab shows a sodium of 144.9, potassium 4.5, chloride 107, CO2 30. Patient's BUN was 72 and creatinine 2.40. GFR was reduced at 26 mL which is stage 4 renal disease. His GFR was at stage 3 when he came in. His liver function tests show a slightly elevated direct bilirubin of 0.6. The ALT is low at 17. The rest of the liver function tests are normal. The patient's troponin I on the day of admission was less than 0.12. The patient's ABG on the showed a pH of 7.35, PCO2 was 42.2, PO2 was 70.2 on an FIO2 of 1 L. His pleural fluid is consistent with a transudate. IMPRESSION: 1. Hypotension, the etiology probably secondary to sepsis and cardiogenic etiology due to cardiomyopathy. 2. CHF causing recurrent pleural effusions. The CHF seems to be acute on chronic systolic heart failure. 3. Right chest tube for right recurrent pleural effusions, history of bilateral pleural effusions, most likely secondary to congestive heart failure. 4. Urinary tract infection with urosepsis and history of obstructive uropathy which was de-obstructed. Now the urine flow is good. 5. Coronary artery disease, at present no evidence of AL on admission. The patient has no anginal symptoms. 6. Cardiomyopathy. 7. Atrial fibrillation, most likely paroxysmal. Continue the patient's amiodarone and Eliquis. 8. Permanent pacemaker placement. 9. Hypertension. 10. Diabetes mellitus. 11. Dementia. 12. Depression. 13. COPD. 14. DNR. 15. GERD. RECOMMENDATIONS: Continue the Marc-Synephrine. We will add dobutamine since the urine output is decreasing. Continue his Lexapro. Continue hypoglycemic precautions. Continue Eliquis. Continue metoprolol succinate, Toprol XL. Continue Entresto as blood pressure permits. Note, the patient is a DNR; his daughter is his healthcare power of trademark attorney. Note, patient was seen around 9:00 in the morning. A total of 60 minutes was spent on the patient with more than 50% of the time spent on direct patient care. His medications have been reviewed. Dobutamine has been added to increase the patient's cardiac output since the patient's urinary output was declining. Note, the patient was on antibiotics which have now been discontinued. Continue respiratory treatments. In view of the patient needing inotropic agents, a central line was requested and dobutamine started after the central line was placed by the surgicalist. Note, 60 minutes were spent on the patient with more than 50% of the time spent on direct patient care. Medical decision making is highly complex since the patient has multiple comorbidities. The patient's prognosis is guarded. I will follow with you. DICTATING PHYSICIAN: SUNSHINE GUPTA M.D. [id number] PHY#: [id number] ID: [id number] JOB#: [id number] ACCT: [id number] cc:SUNSHINE GUPTA M.D. >
[2017-12-27] MEDS: DOCUSATE SODIUM 100 MG CAPSULE PO SCH ×2 (11:01→21:15)
[2017-12-27] MEDS: SACUBITRIL/VALSARTAN 24 MG/26 MG TABLET PO SCH ×2 (11:01→17:03)
[2017-12-27] MEDS: SITAGLIPTIN PHOSPHATE 50 MG TABLET PO SCH (11:01)
[2017-12-27] MEDS: INSULIN DETEMIR 100 UNIT/ML 3 ML PEN SUBCUT SCH (11:02)
--- NOTE | 2017-12-27 11:59 | PDOC PROGRESS REPORT ---
Subjective Progress Note for:: 12/27/17 Subjective:: pains along chest tube site Reason For Visit: ACUTE OBSTRUCTIVE UROPATHY, ACUTE KIDNEY INJURY Physical Exam Vital Signs: Temp Pulse Resp BP Pulse Ox 97.6 F 96 19 99/87 H 100 12/27/17 08:00 12/27/17 10:00 12/27/17 10:15 12/27/17 10:15 12/27/17 10:15 Pulse Oximeter Continuous Start: 12/24/17 12: 58 Freq: RTQ4 Status: Complete Document 12/26/17 00:00 [facility] (Rec: 12/26/17 00:09 SFL [id number]) Pulse Oximetry Assessment Oxygen Saturation (92-100) 96 Oxygen Flow Rate (L/min) 6 Oxygen Delivery Method Nasal Cannula Equipment Usage Equipment in Use Continuous Pulse Oximeter 24 Hour Charge Charge Now Continuous SpO2 Machine # 13 Intake & Output 12/26/17 12/27/17 12/28/17 06:59 06:59 06:59 Intake Total 988 1000 Output Total 20240 Balance -1037 -30 Weight 66.1 kg 67.1 kg Exam: Chest tube drained about 500 ccs past 24 hrs. Clear slightly yellowish Results Laboratory Results: 12/27/17 08:20 12/27/17 08:20 12/27/17 12/27/17 08:20 08:20 WBC 8.4 RBC 4.02 L Hgb 10.4 L Hct 32.0 L MCV 79 L MCH 25.9 L MCHC 32.6 RDW 18.3 H Plt Count 155 Seg Neutrophils % 77.4 Lymphocytes % 11.4 L Monocytes % 9.2 Eosinophils % 1.4 Basophils % 0.6 Absolute Neutrophils 6.5 Absolute Lymphocytes 1.0 Absolute Monocytes 0.8 Absolute Eosinophils 0.1 Absolute Basophils 0.1 Sodium 146.1 H Potassium 4.3 Chloride 108 H Carbon Dioxide 31 H Anion Gap 7 BUN 66 H Creatinine 2.49 H Est GFR ( Amer) 30 L Est GFR (Non-Af Amer) 25 L Glucose 131 H Calcium 9.1 Magnesium 1.8 12/16/17 12:45 Pleural Fluid Viral Culture - Final 12/26/17 12/26/17 12/26/17 03:47 03:47 09:59 Creatine Kinase 21 L 23 L CK-MB (CK-2) 0.84 Troponin I < 0.012 12/26/17 12/26/17 12/26/17 09:59 16:15 16:15 Creatine Kinase 26 L CK-MB (CK-2) 1.23 1.23 Troponin I < 0.012 0.014 Impressions: Head CT 12/03/17 02:18 IMPRESSION: No acute intracranial abnormality TECHNICAL DOCUMENTATION: Quality ID # 436: Final reports with documentation of one or more dose reduction techniques (e.g., Automated exposure control, adjustment of the mA and/or kV according to patient size, use of iterative reconstruction technique) 2010 [employer]- All Rights Reserved Thoracentesis Ultrasound 12/16/17 00:00 IMPRESSION: SUCCESSFUL THORACENTESIS USING ULTRASOUND GUIDANCE. Chest Ultrasound 12/25/17 00:00 IMPRESSION: 1 Right moderate pleural effusion. Chest X-Ray 12/26/17 07:00 IMPRESSION: Right apical pneumothorax. No significant change. Assessment & Plan - Time Time Spent with patient: 15-24 minutes - Plan Summary Plan Summary: Continue monitor chest tube drainage Patient is DNR.
[2017-12-27] MEDS: CITALOPRAM HYDROBROMIDE 20 MG TABLET PO SCH (12:50)
[2017-12-27] MEDS: METOPROLOL SUCCINATE 25 MG TAB.SR.24H PO SCH (12:50)
[2017-12-27] MEDS: AMIODARONE HCL 200 MG TABLET PO SCH (12:50)
[2017-12-27] MEDS: APIXABAN 2.5 MG TABLET PO SCH ×2 (12:51→21:15)
[2017-12-27] MEDS: FOLIC ACID 1 MG TABLET PO SCH (12:51)
[2017-12-27] MEDS: ACETAMINOPHEN 325 MG TABLET PO PRN (15:27)
[2017-12-27] MEDS: INSULIN REG, HUMAN 100 UNIT/ML 3 ML VIAL (PYX) SUBCUT PRN (17:00)
--- NOTE | 2017-12-27 23:15 | PROGRESS NOTE E ---
Progress Note NAME: DAREK SIMON : 1935 AGE: 82Y DATE: 12/27/2017 ROOM: 332 Discussed with the attending physician, Dr. Shelton, and the patient's family does not want any aggressive treatment; hence, I will stop seeing the patient. Dr. Shelton and my understanding is to make the patient comfort care only. Will sign off. Note the patient was not seen, and hence no charges. DICTATING PHYSICIAN: SUNSHINE GUPTA M.D. [id number] PHY#: [id number] ID: [id number] JOB#: [id number] ACCT: [id number] cc: >
[2017-12-28 05:44] LABS: ARTERIAL BLOOD BASE EXCESS 4.9 mmol/L; ARTERIAL BLOOD HCO3 30.9 mmol/L (20-26); ARTERIAL BLOOD O2 SATURATION 95.4 % (94-98); ARTERIAL BLOOD PH 7.38 (7.35-7.45); ARTERIAL BLOOD PO2 79.7 mmHg (80-100); ARTERIAL BLOOD TOTAL CO2 32.6 mmol/L (23-27)
[2017-12-28 05:45] LABS: ARTERIAL BLOOD FIO2 40%
[2017-12-28] MEDS: LANSOPRAZOLE 30 MG TAB.RAP.DR PO SCH (05:52)
[2017-12-28 06:35] LABS: ANION GAP 9 (5-19); BLOOD UREA NITROGEN 63 mg/dL (7-20); CALCIUM 9.2 mg/dL (8.4-10.2); CARBON DIOXIDE 29 mmol/L (22-30); CHLORIDE 111 mmol/L (98-107); GLUCOSE 92 mg/dL (75-110); POTASSIUM 4.2 mmol/L (3.6-5.0); SODIUM 148.9 mmol/L (137-145)
[2017-12-28 06:47] LABS: ABSOLUTE BASOPHILS # (AUTO) 0.1 10^3/uL (0.0-0.2); ABSOLUTE EOSINOPHILS # (AUTO) 0.2 10^3/uL (0.0-0.6); ABSOLUTE MONOCYTES (AUTO) 0.8 10^3/uL (0.1-1.4); ABSOLUTE NEUT (AUTO) 6.8 10^3/uL (1.7-8.2); BASOPHILS % (AUTO) 0.9 % (0-2); EOSINOPHILS % (AUTO) 2.1 % (0-6); HEMATOCRIT 31.3 % (37.9-51.0); HEMOGLOBIN 10.2 g/dL (13.5-17.0); MEAN CORPUSCULAR HGB CONC 32.6 g/dL (32.0-36.0); MEAN CORPUSCULAR VOLUME 80 fl (80-97); MONOCYTES % (AUTO) 9.5 % (3-13); PLATELET COUNT 158 10^3/uL (150-450); RED BLOOD COUNT 3.93 10^6/uL (4.35-5.55); RED CELL DISTRIBUTION WIDTH 17.8 % (11.5-14.0); SEGMENTED NEUTROPHILS % (AUTO) 76.5 % (42-78); TOTAL CELLS COUNTED % (AUTO) 100 %; WHITE BLOOD COUNT 8.9 10^3/uL (4.0-10.5)
[2017-12-28 07:34] LABS: TOTAL PROTEIN BODY FLUID 3.1 g/dL (.)
[2017-12-28] MEDS: METOPROLOL SUCCINATE 25 MG TAB.SR.24H PO SCH (08:51)
[2017-12-28] MEDS: AMIODARONE HCL 200 MG TABLET PO SCH (08:51)
[2017-12-28] MEDS: CITALOPRAM HYDROBROMIDE 20 MG TABLET PO SCH (08:52)
[2017-12-28] MEDS: SITAGLIPTIN PHOSPHATE 50 MG TABLET PO SCH (09:00)
[2017-12-28] MEDS: INSULIN DETEMIR 100 UNIT/ML 3 ML PEN SUBCUT SCH (09:00)
--- NOTE | 2017-12-28 09:13 | RADIOLOGY REPORT (SQ) ---
EXAM DESCRIPTION: CHEST SINGLE VIEW COMPLETED DATE/TIME: 12/28/2017 9:02 am REASON FOR STUDY: pleural effusions/pneumothorax COMPARISON: Chest films 12/14/2017, 12/16/2017, 12/24/2017, 12/25/2017, 12/26/2017 EXAM PARAMETERS: NUMBER OF VIEWS: One view. TECHNIQUE: Single frontal radiographic view of the chest acquired. RADIATION DOSE: NA LIMITATIONS: None. FINDINGS: LUNGS AND PLEURA: A right-sided chest tube is in place, over the right hemidiaphragm. The re is mild bandlike atelectasis in the adjacent right middle lobe. No pneumothorax. No residual ple ural effusion. Retrocardiac air bronchograms from atelectasis or pneumonia. More fluffy alveolar in filtrate in the upper lobes seen 12/26/2017 has near completely cleared. On the left side, retrocardiac consolidation is present atelectasis versus pneumonia. Trace left ple ural effusion could not be excluded. MEDIASTINUM AND HILAR STRUCTURES: No masses. Contour normal. HEART AND VASCULAR STRUCTURES: Stable cardiomegaly BONES: Left shoulder replacement HARDWARE: Right jugular central line tip in the right atrium. Left-sided pacemaker. OTHER: No other significant finding. IMPRESSION: Right chest tube in place, no pneumothorax Persisting consolidation in the right and left retrocardiac regions atelectasis versus pneumonia. TECHNICAL DOCUMENTATION: JOB ID: [id number] [employer]- All Rights Reserved Reading location - IP/workstation name: [email or web address]
[2017-12-28] MEDS: DOCUSATE SODIUM 100 MG CAPSULE PO SCH ×2 (11:13→22:57)
[2017-12-28] MEDS: SACUBITRIL/VALSARTAN 24 MG/26 MG TABLET PO SCH ×2 (11:16→17:30)
[2017-12-28] MEDS: APIXABAN 2.5 MG TABLET PO SCH ×2 (11:17→22:58)
[2017-12-28] MEDS: FOLIC ACID 1 MG TABLET PO SCH (11:17)
--- NOTE | 2017-12-28 14:22 | PDOC PROGRESS REPORT ---
Subjective Progress Note for:: 12/27/17 Subjective:: Patient's condition is very poor, very confused Reason For Visit: ACUTE OBSTRUCTIVE UROPATHY, ACUTE KIDNEY INJURY Physical Exam Vital Signs: Temp Pulse Resp BP Pulse Ox 97.8 F 87 22 H 116/71 100 12/28/17 11:16 12/28/17 11:16 12/28/17 11:16 12/28/17 11:16 12/28/17 11:16 Pulse Oximeter Continuous Start: 12/24/17 12: 58 Freq: RTQ4 Status: Complete Document 12/26/17 00:00 [facility] (Rec: 12/26/17 00:09 SFL [id number]) Pulse Oximetry Assessment Oxygen Saturation (92-100) 96 Oxygen Flow Rate (L/min) 6 Oxygen Delivery Method Nasal Cannula Equipment Usage Equipment in Use Continuous Pulse Oximeter 24 Hour Charge Charge Now Continuous SpO2 Machine # 13 Intake & Output 12/27/17 12/28/17 12/29/17 06:59 06:59 06:59 Intake Total 1000 337 168 Output Total 1030 1260 200 Balance -30 -923 -32 Weight 67.1 kg 62.7 kg General appearance: PRESENT: no acute distress Eye exam: PRESENT: PERRLA Cardiovascular exam: PRESENT: +S1, +S2 Neurological exam: PRESENT: altered Results Laboratory Results: 12/28/17 06:15 12/28/17 05:55 12/25/17 12/28/17 12/28/17 20:10 05:35 05:55 WBC RBC Hgb Hct MCV MCH MCHC RDW Plt Count Seg Neutrophils % Lymphocytes % Monocytes % Eosinophils % Basophils % Absolute Neutrophils Absolute Lymphocytes Absolute Monocytes Absolute Eosinophils Absolute Basophils Carbonic Acid 1.60 H HCO3/H2CO3 Ratio 19:1 ABG pH 7.38 ABG pCO2 53.0 H ABG pO2 79.7 L ABG HCO3 30.9 H ABG O2 Saturation 95.4 ABG Base Excess 4.9 FiO2 40% Sodium 148.9 H Potassium 4.2 Chloride 111 H Carbon Dioxide 29 Anion Gap 9 BUN 63 H Creatinine 2.66 H Est GFR ( Amer) 28 L Est GFR (Non-Af Amer) 23 L Glucose 92 Calcium 9.2 Magnesium 1.8 Fluid Glucose 190 Fluid Total Protein 3.1 Fluid LDH 88 Fluid Amylase 21 12/28/17 06:15 WBC 8.9 RBC 3.93 L Hgb 10.2 L Hct 31.3 L MCV 80 MCH 26.0 L MCHC 32.6 RDW 17.8 H Plt Count 158 Seg Neutrophils % 76.5 Lymphocytes % 11.0 L Monocytes % 9.5 Eosinophils % 2.1 Basophils % 0.9 Absolute Neutrophils 6.8 Absolute Lymphocytes 1.0 Absolute Monocytes 0.8 Absolute Eosinophils 0.2 Absolute Basophils 0.1 Carbonic Acid HCO3/H2CO3 Ratio ABG pH ABG pCO2 ABG pO2 ABG HCO3 ABG O2 Saturation ABG Base Excess FiO2 Sodium Potassium Chloride Carbon Dioxide Anion Gap BUN Creatinine Est GFR ( Amer) Est GFR (Non-Af Amer) Glucose Calcium Magnesium Fluid Glucose Fluid Total Protein Fluid LDH Fluid Amylase 12/25/17 20:10 Pleural Fluid Gram Stain - Final 12/25/17 20:10 Pleural Fluid Body Fluid Culture - Final NO AEROBIC OR ANAEROBIC ORGANISMS RECOVERED 12/26/17 12/26/17 12/26/17 03:47 03:47 09:59 Creatine Kinase 21 L 23 L CK-MB (CK-2) 0.84 Troponin I < 0.012 12/26/17 12/26/17 12/26/17 09:59 16:15 16:15 Creatine Kinase 26 L CK-MB (CK-2) 1.23 1.23 Troponin I < 0.012 0.014 Impressions: Head CT 12/03/17 02:18 IMPRESSION: No acute intracranial abnormality TECHNICAL DOCUMENTATION: Quality ID # 436: Final reports with documentation of one or more dose reduction techniques (e.g., Automated exposure control, adjustment of the mA and/or kV according to patient size, use of iterative reconstruction technique) 2010 [employer]- All Rights Reserved Thoracentesis Ultrasound 12/16/17 00:00 IMPRESSION: SUCCESSFUL THORACENTESIS USING ULTRASOUND GUIDANCE. Chest Ultrasound 12/25/17 00:00 IMPRESSION: 1 Right moderate pleural effusion. Chest X-Ray 12/28/17 06:00 IMPRESSION: Right chest tube in place, no pneumothorax Persisting consolidation in the right and left retrocardiac regions atelectasis versus pneumonia. Assessment & Plan - Diagnosis (1) Pseudomonas urinary tract infection Is this a current diagnosis for this admission?: Yes (2) Chronic atrial fibrillation Is this a current diagnosis for this admission?: Yes (3) Diabetes mellitus type 2 in nonobese Is this a current diagnosis for this admission?: Yes (4) Catheter-associated urinary tract infection Qualifiers: Indwelling urinary catheter type: cystostomy catheter Encounter type: initial encounter Qualified Code(s): T83.510A - Infection and inflammatory reaction due to cystostomy catheter, initial encounter; N39.0 - Urinary tract infection, site not specified; N39.0 - Urinary tract infection, site not specified Is this a current diagnosis for this admission?: Yes (5) Obstructed suprapubic catheter Qualifiers: Encounter type: initial encounter Qualified Code(s): T83.090A - Other mechanical complication of cystostomy catheter, initial encounter Is this a current diagnosis for this admission?: Yes (6) Metabolic encephalopathy Is this a current diagnosis for this admission?: Yes (7) Pleural effusion Is this a current diagnosis for this admission?: Yes (8) Acute systolic heart failure Is this a current diagnosis for this admission?: Yes
--- NOTE | 2017-12-28 15:40 | PDOC PROGRESS REPORT ---
Subjective Progress Note for:: 12/28/17 Subjective:: The pleural fluid analysis is consistent with exudative pleural effusion, he has a right chest tube in place. Patient remains confused, he has supra pubic catheter, he has a whitish discharge from his penis, the foreskin of the penis is adherent to the penile shaft. He has a background of chronic systolic heart failure, prognosis is poor in this patient, recurrent pleural effusion exudative type, probably need thoracoscopy, he is not a candidate for intervention Reason For Visit: ACUTE OBSTRUCTIVE UROPATHY, ACUTE KIDNEY INJURY Physical Exam Vital Signs: Temp Pulse Resp BP Pulse Ox 97.8 F 87 22 H 116/71 100 12/28/17 11:16 12/28/17 11:16 12/28/17 11:16 12/28/17 11:16 12/28/17 11:16 Pulse Oximeter Continuous Start: 12/24/17 12: 58 Freq: RTQ4 Status: Complete Document 12/26/17 00:00 [facility] (Rec: 12/26/17 00:09 SFL [email or web address]) Pulse Oximetry Assessment Oxygen Saturation (92-100) 96 Oxygen Flow Rate (L/min) 6 Oxygen Delivery Method Nasal Cannula Equipment Usage Equipment in Use Continuous Pulse Oximeter 24 Hour Charge Charge Now Continuous SpO2 Machine # 13 Intake & Output 12/27/17 12/28/17 12/29/17 06:59 06:59 06:59 Intake Total 1000 337 168 Output Total 1030 1260 200 Balance -30 -923 -32 Weight 67.1 kg 62.7 kg General appearance: PRESENT: no acute distress Eye exam: PRESENT: PERRLA Respiratory exam: PRESENT: decreased breath sounds Cardiovascular exam: PRESENT: +S1, +S2 GI/Abdominal exam: PRESENT: soft Neurological exam: PRESENT: alert Results Laboratory Results: 12/28/17 06:15 12/28/17 05:55 12/25/17 12/28/17 12/28/17 20:10 05:35 05:55 WBC RBC Hgb Hct MCV MCH MCHC RDW Plt Count Seg Neutrophils % Lymphocytes % Monocytes % Eosinophils % Basophils % Absolute Neutrophils Absolute Lymphocytes Absolute Monocytes Absolute Eosinophils Absolute Basophils Carbonic Acid 1.60 H HCO3/H2CO3 Ratio 19:1 ABG pH 7.38 ABG pCO2 53.0 H ABG pO2 79.7 L ABG HCO3 30.9 H ABG O2 Saturation 95.4 ABG Base Excess 4.9 FiO2 40% Sodium 148.9 H Potassium 4.2 Chloride 111 H Carbon Dioxide 29 Anion Gap 9 BUN 63 H Creatinine 2.66 H Est GFR ( Amer) 28 L Est GFR (Non-Af Amer) 23 L Glucose 92 Calcium 9.2 Magnesium 1.8 Fluid Glucose 190 Fluid Total Protein 3.1 Fluid LDH 88 Fluid Amylase 21 12/28/17 06:15 WBC 8.9 RBC 3.93 L Hgb 10.2 L Hct 31.3 L MCV 80 MCH 26.0 L MCHC 32.6 RDW 17.8 H Plt Count 158 Seg Neutrophils % 76.5 Lymphocytes % 11.0 L Monocytes % 9.5 Eosinophils % 2.1 Basophils % 0.9 Absolute Neutrophils 6.8 Absolute Lymphocytes 1.0 Absolute Monocytes 0.8 Absolute Eosinophils 0.2 Absolute Basophils 0.1 Carbonic Acid HCO3/H2CO3 Ratio ABG pH ABG pCO2 ABG pO2 ABG HCO3 ABG O2 Saturation ABG Base Excess FiO2 Sodium Potassium Chloride Carbon Dioxide Anion Gap BUN Creatinine Est GFR ( Amer) Est GFR (Non-Af Amer) Glucose Calcium Magnesium Fluid Glucose Fluid Total Protein Fluid LDH Fluid Amylase 12/25/17 20:10 Pleural Fluid Gram Stain - Final 12/25/17 20:10 Pleural Fluid Body Fluid Culture - Final NO AEROBIC OR ANAEROBIC ORGANISMS RECOVERED 12/26/17 12/26/17 12/26/17 03:47 03:47 09:59 Creatine Kinase 21 L 23 L CK-MB (CK-2) 0.84 Troponin I < 0.012 12/26/17 12/26/17 12/26/17 09:59 16:15 16:15 Creatine Kinase 26 L CK-MB (CK-2) 1.23 1.23 Troponin I < 0.012 0.014 Impressions: Head CT 12/03/17 02:18 IMPRESSION: No acute intracranial abnormality TECHNICAL DOCUMENTATION: Quality ID # 436: Final reports with documentation of one or more dose reduction techniques (e.g., Automated exposure control, adjustment of the mA and/or kV according to patient size, use of iterative reconstruction technique) 2010 [employer]- All Rights Reserved Thoracentesis Ultrasound 12/16/17 00:00 IMPRESSION: SUCCESSFUL THORACENTESIS USING ULTRASOUND GUIDANCE. Chest Ultrasound 12/25/17 00:00 IMPRESSION: 1 Right moderate pleural effusion. Chest X-Ray 12/28/17 06:00 IMPRESSION: Right chest tube in place, no pneumothorax Persisting consolidation in the right and left retrocardiac regions atelectasis versus pneumonia. Assessment & Plan - Diagnosis (1) Pseudomonas urinary tract infection Is this a current diagnosis for this admission?: Yes (2) Chronic atrial fibrillation Is this a current diagnosis for this admission?: Yes (3) Diabetes mellitus type 2 in nonobese Is this a current diagnosis for this admission?: Yes (4) Catheter-associated urinary tract infection Qualifiers: Indwelling urinary catheter type: cystostomy catheter Encounter type: initial encounter Qualified Code(s): T83.510A - Infection and inflammatory reaction due to cystostomy catheter, initial encounter; N39.0 - Urinary tract infection, site not specified; N39.0 - Urinary tract infection, site not specified Is this a current diagnosis for this admission?: Yes (5) Obstructed suprapubic catheter Qualifiers: Encounter type: initial encounter Qualified Code(s): T83.090A - Other mechanical complication of cystostomy catheter, initial encounter Is this a current diagnosis for this admission?: Yes (6) Metabolic encephalopathy Is this a current diagnosis for this admission?: Yes (7) Pleural effusion Is this a current diagnosis for this admission?: Yes (8) Acute systolic heart failure Is this a current diagnosis for this admission?: Yes (9) Exudative pleural effusion Is this a current diagnosis for this admission?: Yes Plan: the pleural fluid LDH/serum LDH is 0.9 consistent with exudative pleural effusion
[2017-12-28] MEDS: INSULIN REG, HUMAN 100 UNIT/ML 3 ML VIAL (PYX) SUBCUT PRN (16:31)
[2017-12-29] MEDS: LANSOPRAZOLE 30 MG TAB.RAP.DR PO SCH (06:01)
[2017-12-29] MEDS: INSULIN DETEMIR 100 UNIT/ML 3 ML PEN SUBCUT SCH (09:48)
[2017-12-29] MEDS: AMIODARONE HCL 200 MG TABLET PO SCH (09:52)
[2017-12-29] MEDS: CITALOPRAM HYDROBROMIDE 20 MG TABLET PO SCH (09:52)
[2017-12-29] MEDS: SACUBITRIL/VALSARTAN 24 MG/26 MG TABLET PO SCH ×2 (09:52→17:47)
[2017-12-29] MEDS: METOPROLOL SUCCINATE 25 MG TAB.SR.24H PO SCH (09:52)
[2017-12-29] MEDS: SITAGLIPTIN PHOSPHATE 50 MG TABLET PO SCH (09:52)
[2017-12-29] MEDS: DOCUSATE SODIUM 100 MG CAPSULE PO SCH ×2 (09:52→22:47)
[2017-12-29] MEDS: FOLIC ACID 1 MG TABLET PO SCH (09:53)
[2017-12-29] MEDS: APIXABAN 2.5 MG TABLET PO SCH ×2 (11:57→22:47)
[2017-12-29 19:58] LABS: FLUID SOURCE LUNG; FLUID TYPE PLEURAL
[2017-12-29 19:59] LABS: FLUID APPEARANCE HAZY; FLUID COLOR PINK; FLUID VISCOSITY LIQUID
--- NOTE | 2017-12-29 20:23 | PDOC PROGRESS REPORT ---
Subjective Progress Note for:: 12/29/17 Subjective:: Patient's condition remains poor, requesting for palliative care yesterday. 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, chronic indwelling suprapubic Roman catheter with recurrent UTI Reason For Visit: ACUTE OBSTRUCTIVE UROPATHY, ACUTE KIDNEY INJURY Physical Exam Vital Signs: Temp Pulse Resp BP Pulse Ox 98.1 F 91 20 124/78 96 12/29/17 17:13 12/29/17 17:13 12/29/17 17:13 12/29/17 17:13 12/29/17 17:13 Pulse Oximeter Continuous Start: 12/24/17 12: 58 Freq: RTQ4 Status: Complete Document 12/26/17 00:00 [facility] (Rec: 12/26/17 00:09 SFL [id number]) Pulse Oximetry Assessment Oxygen Saturation (92-100) 96 Oxygen Flow Rate (L/min) 6 Oxygen Delivery Method Nasal Cannula Equipment Usage Equipment in Use Continuous Pulse Oximeter 24 Hour Charge Charge Now Continuous SpO2 Machine # 13 Intake & Output 12/28/17 12/29/17 12/30/17 06:59 06:59 06:59 Intake Total 337 268 459 Output Total 1260 810 400 Balance -923 -542 59 Weight 62.7 kg 62.1 kg Eye exam: PRESENT: PERRLA Respiratory exam: PRESENT: decreased breath sounds Cardiovascular exam: PRESENT: +S1, +S2 GI/Abdominal exam: PRESENT: soft Neurological exam: PRESENT: altered Results Laboratory Results: 12/28/17 06:15 12/28/17 05:55 12/29/17 12/29/17 17:50 17:50 Fluid Type PLEURAL Fluid Source LUNG Fluid Color PINK Fluid Appearance HAZY Fluid Viscosity LIQUID Fluid WBC 313 Fluid RBC 57044 Stool Occult Blood POSITIVE 12/26/17 12/26/17 12/26/17 03:47 03:47 09:59 Creatine Kinase 21 L 23 L CK-MB (CK-2) 0.84 Troponin I < 0.012 12/26/17 12/26/17 12/26/17 09:59 16:15 16:15 Creatine Kinase 26 L CK-MB (CK-2) 1.23 1.23 Troponin I < 0.012 0.014 Impressions: Head CT 12/03/17 02:18 IMPRESSION: No acute intracranial abnormality TECHNICAL DOCUMENTATION: Quality ID # 436: Final reports with documentation of one or more dose reduction techniques (e.g., Automated exposure control, adjustment of the mA and/or kV according to patient size, use of iterative reconstruction technique) 2010 [employer]- All Rights Reserved Thoracentesis Ultrasound 12/16/17 00:00 IMPRESSION: SUCCESSFUL THORACENTESIS USING ULTRASOUND GUIDANCE. Chest Ultrasound 12/25/17 00:00 IMPRESSION: 1 Right moderate pleural effusion. Chest X-Ray 12/28/17 06:00 IMPRESSION: Right chest tube in place, no pneumothorax Persisting consolidation in the right and left retrocardiac regions atelectasis versus pneumonia. Assessment & Plan - Diagnosis (1) Pseudomonas urinary tract infection Is this a current diagnosis for this admission?: Yes (2) Chronic atrial fibrillation Is this a current diagnosis for this admission?: Yes (3) Diabetes mellitus type 2 in nonobese Is this a current diagnosis for this admission?: Yes (4) Catheter-associated urinary tract infection Qualifiers: Indwelling urinary catheter type: cystostomy catheter Encounter type: initial encounter Qualified Code(s): T83.510A - Infection and inflammatory reaction due to cystostomy catheter, initial encounter; N39.0 - Urinary tract infection, site not specified; N39.0 - Urinary tract infection, site not specified Is this a current diagnosis for this admission?: Yes (5) Obstructed suprapubic catheter Qualifiers: Encounter type: initial encounter Qualified Code(s): T83.090A - Other mechanical complication of cystostomy catheter, initial encounter Is this a current diagnosis for this admission?: Yes (6) Metabolic encephalopathy Is this a current diagnosis for this admission?: Yes (7) Pleural effusion Is this a current diagnosis for this admission?: Yes (8) Acute systolic heart failure Is this a current diagnosis for this admission?: Yes (9) Exudative pleural effusion Is this a current diagnosis for this admission?: Yes
[2017-12-30] MEDS: LANSOPRAZOLE 30 MG TAB.RAP.DR PO SCH (05:44)
[2017-12-30] MEDS: SITAGLIPTIN PHOSPHATE 50 MG TABLET PO SCH (10:12)
[2017-12-30] MEDS: INSULIN DETEMIR 100 UNIT/ML 3 ML PEN SUBCUT SCH (10:12)
[2017-12-30] MEDS: FOLIC ACID 1 MG TABLET PO SCH (10:13)
[2017-12-30] MEDS: AMIODARONE HCL 200 MG TABLET PO SCH (10:13)
[2017-12-30] MEDS: CITALOPRAM HYDROBROMIDE 20 MG TABLET PO SCH (10:13)
[2017-12-30] MEDS: SACUBITRIL/VALSARTAN 24 MG/26 MG TABLET PO SCH ×2 (10:13→18:46)
[2017-12-30] MEDS: DOCUSATE SODIUM 100 MG CAPSULE PO SCH ×2 (10:13→22:18)
[2017-12-30] MEDS: METOPROLOL SUCCINATE 25 MG TAB.SR.24H PO SCH (10:13)
[2017-12-30] MEDS: APIXABAN 2.5 MG TABLET PO SCH ×2 (10:26→22:18)
[2017-12-30 11:06] LABS: ABSOLUTE BASOPHILS # (AUTO) 0.1 10^3/uL (0.0-0.2); ABSOLUTE EOSINOPHILS # (AUTO) 0.2 10^3/uL (0.0-0.6); ABSOLUTE LYMPHOCYTES (AUTO) 0.9 10^3/uL (0.5-4.7); ABSOLUTE MONOCYTES (AUTO) 0.7 10^3/uL (0.1-1.4); ABSOLUTE NEUT (AUTO) 5.4 10^3/uL (1.7-8.2); BASOPHILS % (AUTO) 1.1 % (0-2); EOSINOPHILS % (AUTO) 3.3 % (0-6); HEMATOCRIT 34.1 % (37.9-51.0); HEMOGLOBIN 10.9 g/dL (13.5-17.0); LYMPHOCYTES % (AUTO) 12.3 % (13-45); MEAN CORPUSCULAR HEMOGLOBIN 25.6 pg (27.0-33.4); MEAN CORPUSCULAR HGB CONC 32.1 g/dL (32.0-36.0); MEAN CORPUSCULAR VOLUME 80 fl (80-97); MONOCYTES % (AUTO) 9.2 % (3-13); PLATELET COUNT 179 10^3/uL (150-450); RED BLOOD COUNT 4.28 10^6/uL (4.35-5.55); RED CELL DISTRIBUTION WIDTH 18.3 % (11.5-14.0); SEGMENTED NEUTROPHILS % (AUTO) 74.1 % (42-78); TOTAL CELLS COUNTED % (AUTO) 100 %; WHITE BLOOD COUNT 7.2 10^3/uL (4.0-10.5)
[2017-12-30 11:28] LABS: ANION GAP 7 (5-19); BLOOD UREA NITROGEN 58 mg/dL (7-20); CALCIUM 9.2 mg/dL (8.4-10.2); CARBON DIOXIDE 31 mmol/L (22-30); CHLORIDE 109 mmol/L (98-107); GLUCOSE 128 mg/dL (75-110); POTASSIUM 4.4 mmol/L (3.6-5.0); SODIUM 147.3 mmol/L (137-145)
--- NOTE | 2017-12-30 20:17 | PDOC PROGRESS REPORT ---
Subjective Progress Note for:: 12/30/17 Subjective:: Patient's condition remains poor, requesting for palliative care . 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, chronic indwelling suprapubic Roman catheter with recurrent UTI Reason For Visit: ACUTE OBSTRUCTIVE UROPATHY, ACUTE KIDNEY INJURY Physical Exam Vital Signs: Temp Pulse Resp BP Pulse Ox 98.0 F 88 12 113/75 98 12/30/17 16:19 12/30/17 16:19 12/30/17 16:19 12/30/17 16:19 12/30/17 16:19 Pulse Oximeter Continuous Start: 12/24/17 12: 58 Freq: RTQ4 Status: Complete Document 12/26/17 00:00 [facility] (Rec: 12/26/17 00:09 SFL [id number]) Pulse Oximetry Assessment Oxygen Saturation (92-100) 96 Oxygen Flow Rate (L/min) 6 Oxygen Delivery Method Nasal Cannula Equipment Usage Equipment in Use Continuous Pulse Oximeter 24 Hour Charge Charge Now Continuous SpO2 Machine # 13 Pulse Oximeter Continuous Start: 12/30/17 11: 50 Freq: RTQ4 Status: Active Document 12/30/17 15:54 [facility] (Rec: 12/30/17 15:55 LDA [email or web address]) Pulse Oximetry Assessment Oxygen Saturation (92-100) 99 Oxygen Flow Rate (L/min) 5 Oxygen Delivery Method Oxymizer Oxygen Conserving Device Equipment Usage Initial Set Up Continuous SpO2 Machine # 8 Intake & Output 12/29/17 12/30/17 12/31/17 06:59 06:59 06:59 Intake Total 268 459 673 Output Total 814 979 585 Balance -542 -191 88 Weight 62.1 kg 62.4 kg Eye exam: PRESENT: PERRLA Respiratory exam: PRESENT: decreased breath sounds Cardiovascular exam: PRESENT: +S2 Murmur grade: 3 GI/Abdominal exam: PRESENT: soft Neurological exam: PRESENT: altered Results Laboratory Results: 12/30/17 10:50 12/30/17 10:50 12/29/17 12/30/17 12/30/17 17:50 10:50 10:50 WBC 7.2 RBC 4.28 L Hgb 10.9 L Hct 34.1 L MCV 80 MCH 25.6 L MCHC 32.1 RDW 18.3 H Plt Count 179 Seg Neutrophils % 74.1 Lymphocytes % 12.3 L Monocytes % 9.2 Eosinophils % 3.3 Basophils % 1.1 Absolute Neutrophils 5.4 Absolute Lymphocytes 0.9 Absolute Monocytes 0.7 Absolute Eosinophils 0.2 Absolute Basophils 0.1 Sodium 147.3 H Potassium 4.4 Chloride 109 H Carbon Dioxide 31 H Anion Gap 7 BUN 58 H Creatinine 1.98 H Est GFR ( Amer) 39 L Est GFR (Non-Af Amer) 32 L Glucose 128 H Calcium 9.2 Fluid Type PLEURAL Fluid Source LUNG Fluid Color PINK Fluid Appearance HAZY Fluid Viscosity LIQUID Fluid WBC 313 Fluid RBC 10194 12/26/17 12/26/17 12/26/17 03:47 03:47 09:59 Creatine Kinase 21 L 23 L CK-MB (CK-2) 0.84 Troponin I < 0.012 12/26/17 12/26/17 12/26/17 09:59 16:15 16:15 Creatine Kinase 26 L CK-MB (CK-2) 1.23 1.23 Troponin I < 0.012 0.014 Impressions: Head CT 12/03/17 02:18 IMPRESSION: No acute intracranial abnormality TECHNICAL DOCUMENTATION: Quality ID # 436: Final reports with documentation of one or more dose reduction techniques (e.g., Automated exposure control, adjustment of the mA and/or kV according to patient size, use of iterative reconstruction technique) 2010 [employer]- All Rights Reserved Thoracentesis Ultrasound 12/16/17 00:00 IMPRESSION: SUCCESSFUL THORACENTESIS USING ULTRASOUND GUIDANCE. Chest Ultrasound 12/25/17 00:00 IMPRESSION: 1 Right moderate pleural effusion. Chest X-Ray 12/28/17 06:00 IMPRESSION: Right chest tube in place, no pneumothorax Persisting consolidation in the right and left retrocardiac regions atelectasis versus pneumonia. Assessment & Plan - Diagnosis (1) Pseudomonas urinary tract infection Is this a current diagnosis for this admission?: Yes (2) Chronic atrial fibrillation Is this a current diagnosis for this admission?: Yes (3) Diabetes mellitus type 2 in nonobese Is this a current diagnosis for this admission?: Yes (4) Catheter-associated urinary tract infection Qualifiers: Indwelling urinary catheter type: cystostomy catheter Encounter type: initial encounter Qualified Code(s): T83.510A - Infection and inflammatory reaction due to cystostomy catheter, initial encounter; N39.0 - Urinary tract infection, site not specified; N39.0 - Urinary tract infection, site not specified Is this a current diagnosis for this admission?: Yes (5) Obstructed suprapubic catheter Qualifiers: Encounter type: initial encounter Qualified Code(s): T83.090A - Other mechanical complication of cystostomy catheter, initial encounter Is this a current diagnosis for this admission?: Yes (6) Metabolic encephalopathy Is this a current diagnosis for this admission?: Yes (7) Pleural effusion Is this a current diagnosis for this admission?: Yes (8) Acute systolic heart failure Is this a current diagnosis for this admission?: Yes (9) Exudative pleural effusion Is this a current diagnosis for this admission?: Yes Plan: He has recurrent exudative pleural effusion, the adenosine deaminase test negative, rule out TB, so far negative cytology, no bacteria culture, based on his repeated thoracentesis now has a chest tube thoracoscopy is indicated in this patient, not a candidate for the procedure, overall poor prognosis, poor function, consent obtained from palliative care and possibly hospice care to be discussed with family ,I will be out for the next week, Dr. Teresa is control room agent this weekend
[2017-12-31] MEDS: LANSOPRAZOLE 30 MG TAB.RAP.DR PO SCH (06:50)
[2017-12-31] MEDS: AMIODARONE HCL 200 MG TABLET PO SCH (09:22)
[2017-12-31] MEDS: DOCUSATE SODIUM 100 MG CAPSULE PO SCH ×2 (09:22→22:49)
[2017-12-31] MEDS: METOPROLOL SUCCINATE 25 MG TAB.SR.24H PO SCH (09:22)
[2017-12-31] MEDS: SITAGLIPTIN PHOSPHATE 50 MG TABLET PO SCH (09:22)
[2017-12-31] MEDS: FOLIC ACID 1 MG TABLET PO SCH (09:22)
[2017-12-31] MEDS: SACUBITRIL/VALSARTAN 24 MG/26 MG TABLET PO SCH ×2 (09:23→17:35)
[2017-12-31] MEDS: APIXABAN 2.5 MG TABLET PO SCH ×2 (09:23→22:49)
[2017-12-31] MEDS: INSULIN DETEMIR 100 UNIT/ML 3 ML PEN SUBCUT SCH (09:23)
[2017-12-31] MEDS: CITALOPRAM HYDROBROMIDE 20 MG TABLET PO SCH (09:23)
--- NOTE | 2017-12-31 21:07 | PDOC PROGRESS REPORT ---
Subjective Progress Note for:: 12/31/17 Subjective:: Patient is less verbal communicating today. Poor po intake and urine output so far today. No nausea, vomiting or abdominal pain. No reported fever. Overall prognosis remain poor. Reason For Visit: ACUTE OBSTRUCTIVE UROPATHY, ACUTE KIDNEY INJURY Physical Exam Vital Signs: Temp Pulse Resp BP Pulse Ox 97.7 F 86 18 97/67 L 96 12/31/17 15:31 12/31/17 15:31 12/31/17 15:31 12/31/17 15:31 12/31/17 16:00 Pulse Oximeter Continuous Start: 12/24/17 12: 58 Freq: RTQ4 Status: Complete Document 12/26/17 00:00 [facility] (Rec: 12/26/17 00:09 SFL [id number]) Pulse Oximetry Assessment Oxygen Saturation (92-100) 96 Oxygen Flow Rate (L/min) 6 Oxygen Delivery Method Nasal Cannula Equipment Usage Equipment in Use Continuous Pulse Oximeter 24 Hour Charge Charge Now Continuous SpO2 Machine # 13 Pulse Oximeter Continuous Start: 12/30/17 11: 50 Freq: RTQ4 Status: Active Document 12/31/17 16:00 [facility] (Rec: 12/31/17 16:49 [email or web address]) Pulse Oximetry Assessment Oxygen Saturation (92-100) 96 Oxygen Flow Rate (L/min) 5 Oxygen Delivery Method Oxymizer Oxygen Conserving Device Equipment Usage Equipment in Use Continuous SpO2 Machine # 8 Intake & Output 12/30/17 12/31/17 01/01/18 06:59 06:59 06:59 Intake Total 459 673 168 Output Total 650 947 144 Balance -191 -274 24 Weight 62.4 kg 62.1 kg Physical Exam: General appearance: PRESENT: no acute distress Head exam: PRESENT: atraumatic, normocephalic Eye exam: PRESENT: conjunctiva pink, EOMI, PERRLA. ABSENT: scleral icterus Mouth exam: PRESENT: moist, tongue midline Respiratory exam: PRESENT: clear to auscultation denita Cardiovascular exam: PRESENT: RRR. ABSENT: diastolic murmur, rubs, systolic murmur Vascular exam: ABSENT: pallor GI/Abdominal exam: PRESENT: normal bowel sounds, soft. ABSENT: distended, guarding, mass, organomegaly, rebound, tenderness Genitourinary exam: PRESENT: indwelling catheter - suprapubic catheter Extremities exam: ABSENT: pedal edema Musculoskeletal exam: PRESENT: deformity - related to multiple joints involvement with arthritis Neurological exam: PRESENT: alert, awake Psychiatric exam: PRESENT: appropriate affect, normal mood. ABSENT: homicidal ideation, suicidal ideation Skin exam: PRESENT: dry, warm Murmur grade: 3 Results Laboratory Results: 12/30/17 10:50 12/30/17 10:50 12/26/17 12/26/17 12/26/17 03:47 03:47 09:59 Creatine Kinase 21 L 23 L CK-MB (CK-2) 0.84 Troponin I < 0.012 12/26/17 12/26/17 12/26/17 09:59 16:15 16:15 Creatine Kinase 26 L CK-MB (CK-2) 1.23 1.23 Troponin I < 0.012 0.014 Impressions: Head CT 12/03/17 02:18 IMPRESSION: No acute intracranial abnormality TECHNICAL DOCUMENTATION: Quality ID # 436: Final reports with documentation of one or more dose reduction techniques (e.g., Automated exposure control, adjustment of the mA and/or kV according to patient size, use of iterative reconstruction technique) 2010 [employer]- All Rights Reserved Thoracentesis Ultrasound 12/16/17 00:00 IMPRESSION: SUCCESSFUL THORACENTESIS USING ULTRASOUND GUIDANCE. Chest Ultrasound 12/25/17 00:00 IMPRESSION: 1 Right moderate pleural effusion. Chest X-Ray 12/28/17 06:00 IMPRESSION: Right chest tube in place, no pneumothorax Persisting consolidation in the right and left retrocardiac regions atelectasis versus pneumonia. Assessment & Plan - Diagnosis (1) Altered mental status Qualifiers: Altered mental status type: unspecified Qualified Code(s): R41.82 - Altered mental status, unspecified Is this a current diagnosis for this admission?: Yes (2) Acute bilateral obstructive uropathy Is this a current diagnosis for this admission?: Yes (3) Catheter-associated urinary tract infection Qualifiers: Indwelling urinary catheter type: cystostomy catheter Encounter type: initial encounter Qualified Code(s): T83.510A - Infection and inflammatory reaction due to cystostomy catheter, initial encounter; N39.0 - Urinary tract infection, site not specified; N39.0 - Urinary tract infection, site not specified Is this a current diagnosis for this admission?: Yes (4) Acute kidney injury Is this a current diagnosis for this admission?: Yes (5) Diabetes mellitus type 2 in nonobese Is this a current diagnosis for this admission?: Yes (6) Chronic atrial fibrillation Is this a current diagnosis for this admission?: Yes (7) Hypertension Qualifiers: Hypertension type: essential hypertension Qualified Code(s): I10 - Essential (primary) hypertension Is this a current diagnosis for this admission?: Yes (8) Congestive heart failure Is this a current diagnosis for this admission?: Yes (9) Coronary artery disease Qualifiers: Coronary Disease-Associated Artery/Lesion type: unspecified vessel or lesion type Is this a current diagnosis for this admission?: Yes - Time Time Spent with patient: 25-34 minutes Medications reviewed and adjusted accordingly: Yes Anticipated discharge: Hospice Within: Other - Inpatient Certification Based on my medical assessment, after consideration of the patient's comorbidities, presenting symptoms, or acuity I expect that the services needed warrant INPATIENT care.: Yes I certify that my determination is in accordance with my understanding of Medicare's requirements for reasonable and necessary INPATIENT services [42 CFR 412.3e].: Yes Medical Necessity: Need Close Monitoring Due to Risk of Patient Decompensation, Need For IV Fluids, Risk of Complication if Not Cared For in Hospital Post Hospital Care: D/C [employer] Documentation - Plan Summary Plan Summary: Continue current medication and supportive management. Follow up on palliative care service provision.
[2018-01-01] MEDS: LANSOPRAZOLE 30 MG TAB.RAP.DR PO SCH (07:07)
[2018-01-01] MEDS: CITALOPRAM HYDROBROMIDE 20 MG TABLET PO SCH (09:44)
[2018-01-01] MEDS: METOPROLOL SUCCINATE 25 MG TAB.SR.24H PO SCH (09:44)
[2018-01-01] MEDS: FOLIC ACID 1 MG TABLET PO SCH (09:44)
[2018-01-01] MEDS: AMIODARONE HCL 200 MG TABLET PO SCH (09:45)
[2018-01-01] MEDS: DOCUSATE SODIUM 100 MG CAPSULE PO SCH ×2 (09:45→21:31)
[2018-01-01] MEDS: SITAGLIPTIN PHOSPHATE 50 MG TABLET PO SCH (09:45)
[2018-01-01] MEDS: INSULIN DETEMIR 100 UNIT/ML 3 ML PEN SUBCUT SCH (09:45)
[2018-01-01] MEDS: SACUBITRIL/VALSARTAN 24 MG/26 MG TABLET PO SCH ×2 (10:11→17:59)
[2018-01-01] MEDS: APIXABAN 2.5 MG TABLET PO SCH ×2 (10:12→21:32)
--- NOTE | 2018-01-01 18:58 | PDOC PROGRESS REPORT ---
Subjective Progress Note for:: 01/01/18 Subjective:: Patient oral intake and urine output remain poor. No nausea, vomiting or abdominal pain. No reported fever. There is unstagable pressure ulcer in the sacral region. Overall prognosis remain poor. Reason For Visit: ACUTE OBSTRUCTIVE UROPATHY, ACUTE KIDNEY INJURY Physical Exam Vital Signs: Temp Pulse Resp BP Pulse Ox 97.4 F 91 22 H 109/70 100 01/01/18 15:19 01/01/18 15:19 01/01/18 11:36 01/01/18 15:19 01/01/18 15:19 Pulse Oximeter Continuous Start: 12/24/17 12: 58 Freq: RTQ4 Status: Complete Document 12/26/17 00:00 SFL (Rec: 12/26/17 00:09 SFL [email or web address]) Pulse Oximetry Assessment Oxygen Saturation (92-100) 96 Oxygen Flow Rate (L/min) 6 Oxygen Delivery Method Nasal Cannula Equipment Usage Equipment in Use Continuous Pulse Oximeter 24 Hour Charge Charge Now Continuous SpO2 Machine # 13 Pulse Oximeter Continuous Start: 12/30/17 11: 50 Freq: RTQ4 Status: Active Document 01/01/18 16:00 JDR (Rec: 01/01/18 16:58 JDR [email or web address]) Pulse Oximetry Assessment Equipment Usage Equipment Standby Continuous SpO2 Machine # 8 Intake & Output 12/31/17 01/01/18 01/02/18 06:59 06:59 06:59 Intake Total 673 268 118 Output Total 947 534 175 Balance -274 -266 -57 Weight 62.1 kg 64.4 kg Physical Exam: General appearance: PRESENT: no acute distress Head exam: PRESENT: atraumatic, normocephalic Eye exam: PRESENT: conjunctiva pink, EOMI, PERRLA. ABSENT: scleral icterus Mouth exam: PRESENT: moist, tongue midline Respiratory exam: PRESENT: clear to auscultation denita Cardiovascular exam: PRESENT: RRR. ABSENT: diastolic murmur, rubs, systolic murmur Vascular exam: ABSENT: pallor GI/Abdominal exam: PRESENT: normal bowel sounds, soft. ABSENT: distended, guarding, mass, organomegaly, rebound, tenderness Genitourinary exam: PRESENT: indwelling catheter - suprapubic catheter Extremities exam: ABSENT: pedal edema Musculoskeletal exam: PRESENT: deformity - related to multiple joints involvement with arthritis Neurological exam: PRESENT: alert, awake Psychiatric exam: PRESENT: appropriate affect, normal mood. ABSENT: homicidal ideation, suicidal ideation Skin exam: PRESENT: dry, warm, sacral pressure ulcer presently unstagable. Murmur grade: 3 Results Laboratory Results: 12/30/17 10:50 12/30/17 10:50 12/26/17 12/26/17 12/26/17 03:47 03:47 09:59 Creatine Kinase 21 L 23 L CK-MB (CK-2) 0.84 Troponin I < 0.012 12/26/17 12/26/17 12/26/17 09:59 16:15 16:15 Creatine Kinase 26 L CK-MB (CK-2) 1.23 1.23 Troponin I < 0.012 0.014 Impressions: Head CT 12/03/17 02:18 IMPRESSION: No acute intracranial abnormality TECHNICAL DOCUMENTATION: Quality ID # [id number]: Final reports with documentation of one or more dose reduction techniques (e.g., Automated exposure control, adjustment of the mA and/or kV according to patient size, use of iterative reconstruction technique) 2010 [employer]- All Rights Reserved Thoracentesis Ultrasound 12/16/17 00:00 IMPRESSION: SUCCESSFUL THORACENTESIS USING ULTRASOUND GUIDANCE. Chest Ultrasound 12/25/17 00:00 IMPRESSION: 1 Right moderate pleural effusion. Chest X-Ray 12/28/17 06:00 IMPRESSION: Right chest tube in place, no pneumothorax Persisting consolidation in the right and left retrocardiac regions atelectasis versus pneumonia. Assessment & Plan - Diagnosis (1) Altered mental status Qualifiers: Altered mental status type: unspecified Qualified Code(s): R41.82 - Altered mental status, unspecified Is this a current diagnosis for this admission?: Yes (2) Acute bilateral obstructive uropathy Is this a current diagnosis for this admission?: Yes (3) Catheter-associated urinary tract infection Qualifiers: Indwelling urinary catheter type: cystostomy catheter Encounter type: initial encounter Qualified Code(s): T83.510A - Infection and inflammatory reaction due to cystostomy catheter, initial encounter; N39.0 - Urinary tract infection, site not specified; N39.0 - Urinary tract infection, site not specified Is this a current diagnosis for this admission?: Yes (4) Acute kidney injury Is this a current diagnosis for this admission?: Yes (5) Diabetes mellitus type 2 in nonobese Is this a current diagnosis for this admission?: Yes (6) Chronic atrial fibrillation Is this a current diagnosis for this admission?: Yes (7) Hypertension Qualifiers: Hypertension type: essential hypertension Qualified Code(s): I10 - Essential (primary) hypertension Is this a current diagnosis for this admission?: Yes (8) Congestive heart failure Is this a current diagnosis for this admission?: Yes (9) Coronary artery disease Qualifiers: Coronary Disease-Associated Artery/Lesion type: unspecified vessel or lesion type Is this a current diagnosis for this admission?: Yes - Time Time Spent with patient: 25-34 minutes Medications reviewed and adjusted accordingly: Yes Anticipated discharge: SNF, Hospice Within: Other - Inpatient Certification Based on my medical assessment, after consideration of the patient's comorbidities, presenting symptoms, or acuity I expect that the services needed warrant INPATIENT care.: Yes I certify that my determination is in accordance with my understanding of Medicare's requirements for reasonable and necessary INPATIENT services [42 CFR 412.3e].: Yes Medical Necessity: Need Close Monitoring Due to Risk of Patient Decompensation, Need For Continuous Telemetry Monitoring, Need for IV Antibiotics, Risk of Complication if Not Cared For in Hospital Post Hospital Care: D/C or Transfer Summary - Plan Summary Plan Summary: Continue current medication management. Start on IV N/S at 50mL/hr. Wound dressing with Alevyn or Duoderm as available.
[2018-01-02] MEDS: LANSOPRAZOLE 30 MG TAB.RAP.DR PO SCH (05:41)
[2018-01-02] MEDS: SACUBITRIL/VALSARTAN 24 MG/26 MG TABLET PO SCH ×2 (09:20→18:17)
[2018-01-02] MEDS: FOLIC ACID 1 MG TABLET PO SCH (09:20)
[2018-01-02] MEDS: AMIODARONE HCL 200 MG TABLET PO SCH (09:20)
[2018-01-02] MEDS: APIXABAN 2.5 MG TABLET PO SCH ×2 (09:20→21:34)
[2018-01-02] MEDS: METOPROLOL SUCCINATE 25 MG TAB.SR.24H PO SCH (09:20)
[2018-01-02] MEDS: SITAGLIPTIN PHOSPHATE 50 MG TABLET PO SCH (09:20)
[2018-01-02] MEDS: DOCUSATE SODIUM 100 MG CAPSULE PO SCH ×2 (09:21→21:34)
[2018-01-02] MEDS: CITALOPRAM HYDROBROMIDE 20 MG TABLET PO SCH (09:21)
[2018-01-02] MEDS: NORMAL SALINE 1000 ML 1,000 ML IV PRN (09:29)
--- NOTE | 2018-01-02 19:16 | PDOC PROGRESS REPORT ---
Subjective Progress Note for:: 01/02/18 Subjective:: No reported fever. Patient oral intake remain a challenge. No nausea, vomiting or abdominal pain. Remain on IV fluid support. Overall prognosis remain poor. Reason For Visit: ACUTE OBSTRUCTIVE UROPATHY, ACUTE KIDNEY INJURY Physical Exam Vital Signs: Temp Pulse Resp BP Pulse Ox 97.7 F 86 22 H 106/67 100 01/02/18 11:39 01/02/18 11:39 01/02/18 11:39 01/02/18 11:39 01/02/18 12:00 Pulse Oximeter Continuous Start: 12/24/17 12: 58 Freq: RTQ4 Status: Complete Document 12/26/17 00:00 SFL (Rec: 12/26/17 00:09 SFL [email or web address]) Pulse Oximetry Assessment Oxygen Saturation (92-100) 96 Oxygen Flow Rate (L/min) 6 Oxygen Delivery Method Nasal Cannula Equipment Usage Equipment in Use Continuous Pulse Oximeter 24 Hour Charge Charge Now Continuous SpO2 Machine # 13 Pulse Oximeter Continuous Start: 12/30/17 11: 50 Freq: RTQ4 Status: Active Document 01/02/18 12:00 LDA (Rec: 01/02/18 12:57 LDA [email or web address]) Pulse Oximetry Assessment Oxygen Saturation (92-100) 100 Oxygen Flow Rate (L/min) 4 Oxygen Delivery Method Nasal Cannula Fraction of Inspired Oxygen (FIO2) 36 Equipment Usage Equipment in Use Continuous SpO2 Machine # 8 Intake & Output 01/01/18 01/02/18 01/03/18 06:59 06:59 06:59 Intake Total 268 218 75 Output Total 534 870 100 [facility] -266 -652 -25 Weight 64.4 kg 63.7 kg Physical Exam: General appearance: PRESENT: no acute distress Head exam: PRESENT: atraumatic, normocephalic Eye exam: PRESENT: conjunctiva pink, EOMI, PERRLA. ABSENT: scleral icterus Mouth exam: PRESENT: moist, tongue midline Respiratory exam: PRESENT: clear to auscultation denita Cardiovascular exam: PRESENT: RRR. ABSENT: diastolic murmur, rubs, systolic murmur Vascular exam: ABSENT: pallor GI/Abdominal exam: PRESENT: normal bowel sounds, soft. ABSENT: distended, guarding, mass, organomegaly, rebound, tenderness Genitourinary exam: PRESENT: indwelling catheter - suprapubic catheter Extremities exam: ABSENT: pedal edema Musculoskeletal exam: PRESENT: deformity - related to multiple joints involvement with arthritis Neurological exam: PRESENT: alert, awake Psychiatric exam: PRESENT: appropriate affect, normal mood. ABSENT: homicidal ideation, suicidal ideation Skin exam: PRESENT: dry, warm, sacral pressure ulcer. Murmur grade: 3 Results Laboratory Results: 12/30/17 10:50 12/30/17 10:50 12/26/17 12/26/17 12/26/17 03:47 03:47 09:59 Creatine Kinase 21 L 23 L CK-MB (CK-2) 0.84 Troponin I < 0.012 12/26/17 12/26/17 12/26/17 09:59 16:15 16:15 Creatine Kinase 26 L CK-MB (CK-2) 1.23 1.23 Troponin I < 0.012 0.014 Impressions: Head CT 12/03/17 02:18 IMPRESSION: No acute intracranial abnormality TECHNICAL DOCUMENTATION: Quality ID # 436: Final reports with documentation of one or more dose reduction techniques (e.g., Automated exposure control, adjustment of the mA and/or kV according to patient size, use of iterative reconstruction technique) 2010 [employer]- All Rights Reserved Thoracentesis Ultrasound 12/16/17 00:00 IMPRESSION: SUCCESSFUL THORACENTESIS USING ULTRASOUND GUIDANCE. Chest Ultrasound 12/25/17 00:00 IMPRESSION: 1 Right moderate pleural effusion. Chest X-Ray 12/28/17 06:00 IMPRESSION: Right chest tube in place, no pneumothorax Persisting consolidation in the right and left retrocardiac regions atelectasis versus pneumonia. Assessment & Plan - Diagnosis (1) Altered mental status Qualifiers: Altered mental status type: unspecified Qualified Code(s): R41.82 - Altered mental status, unspecified Is this a current diagnosis for this admission?: Yes (2) Acute bilateral obstructive uropathy Is this a current diagnosis for this admission?: Yes (3) Catheter-associated urinary tract infection Qualifiers: Indwelling urinary catheter type: cystostomy catheter Encounter type: initial encounter Qualified Code(s): T83.510A - Infection and inflammatory reaction due to cystostomy catheter, initial encounter; N39.0 - Urinary tract infection, site not specified; N39.0 - Urinary tract infection, site not specified Is this a current diagnosis for this admission?: Yes (4) Acute kidney injury Is this a current diagnosis for this admission?: Yes (5) Diabetes mellitus type 2 in nonobese Is this a current diagnosis for this admission?: Yes (6) Chronic atrial fibrillation Is this a current diagnosis for this admission?: Yes (7) Hypertension Qualifiers: Hypertension type: essential hypertension Qualified Code(s): I10 - Essential (primary) hypertension Is this a current diagnosis for this admission?: Yes (8) Congestive heart failure Is this a current diagnosis for this admission?: Yes (9) Coronary artery disease Qualifiers: Coronary Disease-Associated Artery/Lesion type: unspecified vessel or lesion type Is this a current diagnosis for this admission?: Yes (10) Pressure injury of sacral region, stage 2 Is this a current diagnosis for this admission?: Yes Plan: See attending physician orders. - Time Time Spent with patient: 25-34 minutes Medications reviewed and adjusted accordingly: Yes Anticipated discharge: Hospice Within: Other - Inpatient Certification Based on my medical assessment, after consideration of the patient's comorbidities, presenting symptoms, or acuity I expect that the services needed warrant INPATIENT care.: Yes I certify that my determination is in accordance with my understanding of Medicare's requirements for reasonable and necessary INPATIENT services [42 CFR 412.3e].: Yes Medical Necessity: Need Close Monitoring Due to Risk of Patient Decompensation, Need For IV Fluids, Need For Continuous Telemetry Monitoring, Risk of Complication if Not Cared For in Hospital Post Hospital Care: D/C or Transfer Summary - Plan Summary Plan Summary: Continue current medication and support care. Continue discussion with family regarding palliative / hospice care placement.
[2018-01-03] MEDS: NORMAL SALINE 1000 ML 1,000 ML IV PRN (05:34)
[2018-01-03] MEDS: APIXABAN 2.5 MG TABLET PO SCH ×2 (09:56→21:20)
[2018-01-03] MEDS: DOCUSATE SODIUM 100 MG CAPSULE PO SCH ×2 (09:56→21:20)
[2018-01-03] MEDS: SACUBITRIL/VALSARTAN 24 MG/26 MG TABLET PO SCH ×2 (09:57→18:53)
[2018-01-03] MEDS ORDERED: SITAGLIPTIN PHOSPHATE 50 MG TABLET PO SCH (13:00)
[2018-01-03] MEDS: FOLIC ACID 1 MG TABLET PO SCH (13:12)
[2018-01-03] MEDS ORDERED: SITAGLIPTIN PHOSPHATE 50 MG TABLET PO ONE (14:30)
--- NOTE | 2018-01-03 22:34 | PDOC PROGRESS REPORT ---
Subjective Progress Note for:: 01/03/18 Subjective:: No chest pain or difficulty with breathing. No reported fever. Patient oral intake remain a challenge. No nausea, vomiting or abdominal pain. Remain on IV fluid support. Overall prognosis remain poor. Reason For Visit: ACUTE OBSTRUCTIVE UROPATHY, ACUTE KIDNEY INJURY Physical Exam Vital Signs: Temp Pulse Resp BP Pulse Ox 98.1 F 88 20 123/71 99 01/03/18 19:20 01/03/18 19:20 01/03/18 19:20 01/03/18 19:20 01/03/18 20:35 Pulse Oximeter Continuous Start: 12/24/17 12: 58 Freq: RTQ4 Status: Complete Document 12/26/17 00:00 SFL (Rec: 12/26/17 00:09 SFL [id number]) Pulse Oximetry Assessment Oxygen Saturation (92-100) 96 Oxygen Flow Rate (L/min) 6 Oxygen Delivery Method Nasal Cannula Equipment Usage Equipment in Use Continuous Pulse Oximeter 24 Hour Charge Charge Now Continuous SpO2 Machine # 13 Pulse Oximeter Continuous Start: 12/30/17 11: 50 Freq: RTQ4 Status: Active Document 01/03/18 20:35 [facility] (Rec: 01/03/18 21:04 [facility] [email or web address]) Pulse Oximetry Assessment Oxygen Saturation (92-100) 99 Oxygen Flow Rate (L/min) 1 Oxygen Delivery Method Nasal Cannula Fraction of Inspired Oxygen (FIO2) 24 Equipment Usage Equipment in Use Continuous SpO2 Machine # N-8 Intake & Output 01/02/18 01/03/18 01/04/18 06:59 06:59 06:59 Intake Total 218 1175 0 Output Total 870 785 525 Balance -652 390 -525 Weight 63.7 kg 64.6 kg Physical Exam: General appearance: PRESENT: no acute distress Head exam: PRESENT: atraumatic, normocephalic Eye exam: PRESENT: conjunctiva pink, EOMI, PERRLA. ABSENT: scleral icterus Mouth exam: PRESENT: moist, tongue midline Respiratory exam: PRESENT: clear to auscultation denita, decrease breath sounds lung bases, right chest tube draining satisfactorily Cardiovascular exam: PRESENT: RRR. ABSENT: diastolic murmur, rubs, systolic murmur Vascular exam: ABSENT: pallor GI/Abdominal exam: PRESENT: normal bowel sounds, soft. ABSENT: distended, guarding, mass, organomegaly, rebound, tenderness Genitourinary exam: PRESENT: indwelling catheter - suprapubic catheter Extremities exam: ABSENT: pedal edema Musculoskeletal exam: PRESENT: deformity - related to multiple joints involvement with arthritis Neurological exam: PRESENT: alert, awake Psychiatric exam: PRESENT: appropriate affect, normal mood. ABSENT: homicidal ideation, suicidal ideation Skin exam: PRESENT: dry, warm, new left arm skin tear, sacral pressure ulcer. Murmur grade: 3 Results Laboratory Results: 12/30/17 10:50 12/30/17 10:50 12/26/17 12/26/17 12/26/17 03:47 03:47 09:59 Creatine Kinase 21 L 23 L CK-MB (CK-2) 0.84 Troponin I < 0.012 12/26/17 12/26/17 12/26/17 09:59 16:15 16:15 Creatine Kinase 26 L CK-MB (CK-2) 1.23 1.23 Troponin I < 0.012 0.014 Impressions: Head CT 12/03/17 02:18 IMPRESSION: No acute intracranial abnormality TECHNICAL DOCUMENTATION: Quality ID # 436: Final reports with documentation of one or more dose reduction techniques (e.g., Automated exposure control, adjustment of the mA and/or kV according to patient size, use of iterative reconstruction technique) 2010 [employer]- All Rights Reserved Thoracentesis Ultrasound 12/16/17 00:00 IMPRESSION: SUCCESSFUL THORACENTESIS USING ULTRASOUND GUIDANCE. Chest Ultrasound 12/25/17 00:00 IMPRESSION: 1 Right moderate pleural effusion. Chest X-Ray 12/28/17 06:00 IMPRESSION: Right chest tube in place, no pneumothorax Persisting consolidation in the right and left retrocardiac regions atelectasis versus pneumonia. Assessment & Plan - Diagnosis (1) Altered mental status Qualifiers: Altered mental status type: unspecified Qualified Code(s): R41.82 - Altered mental status, unspecified Is this a current diagnosis for this admission?: Yes (2) Acute bilateral obstructive uropathy Is this a current diagnosis for this admission?: Yes (3) Catheter-associated urinary tract infection Qualifiers: Indwelling urinary catheter type: cystostomy catheter Encounter type: initial encounter Qualified Code(s): T83.510A - Infection and inflammatory reaction due to cystostomy catheter, initial encounter; N39.0 - Urinary tract infection, site not specified; N39.0 - Urinary tract infection, site not specified Is this a current diagnosis for this admission?: Yes (4) Acute kidney injury Is this a current diagnosis for this admission?: Yes (5) Diabetes mellitus type 2 in nonobese Is this a current diagnosis for this admission?: Yes (6) Chronic atrial fibrillation Is this a current diagnosis for this admission?: Yes (7) Hypertension Qualifiers: Hypertension type: essential hypertension Qualified Code(s): I10 - Essential (primary) hypertension Is this a current diagnosis for this admission?: Yes (8) Congestive heart failure Is this a current diagnosis for this admission?: Yes (9) Coronary artery disease Qualifiers: Coronary Disease-Associated Artery/Lesion type: unspecified vessel or lesion type Is this a current diagnosis for this admission?: Yes (10) Pressure injury of sacral region, stage 2 Is this a current diagnosis for this admission?: Yes - Time Time Spent with patient: 25-34 minutes Medications reviewed and adjusted accordingly: Yes Anticipated discharge: Home with Homehealth, Hospice Within: Other - Inpatient Certification Based on my medical assessment, after consideration of the patient's comorbidities, presenting symptoms, or acuity I expect that the services needed warrant INPATIENT care.: Yes I certify that my determination is in accordance with my understanding of Medicare's requirements for reasonable and necessary INPATIENT services [42 CFR 412.3e].: Yes Medical Necessity: Need Close Monitoring Due to Risk of Patient Decompensation, Need For Continuous Telemetry Monitoring, Need for IV Antibiotics, Risk of Complication if Not Cared For in Hospital Post Hospital Care: D/C Slot Service Specialist Documentation - Plan Summary Plan Summary: See covering attending physician orders.
[2018-01-04] MEDS: NORMAL SALINE 1000 ML 1,000 ML IV PRN (02:20)
[2018-01-04 07:57] LABS: ANION GAP 9 (5-19); BLOOD UREA NITROGEN 50 mg/dL (7-20); CALCIUM 9.1 mg/dL (8.4-10.2); CARBON DIOXIDE 27 mmol/L (22-30); CHLORIDE 114 mmol/L (98-107); GLUCOSE 68 mg/dL (75-110); POTASSIUM 4.3 mmol/L (3.6-5.0); SODIUM 150.3 mmol/L (137-145)
[2018-01-04] MEDS: SITAGLIPTIN PHOSPHATE 50 MG TABLET PO SCH (09:16)
[2018-01-04] MEDS: APIXABAN 2.5 MG TABLET PO SCH ×2 (09:16→22:09)
[2018-01-04] MEDS: SACUBITRIL/VALSARTAN 24 MG/26 MG TABLET PO SCH ×2 (09:16→17:17)
[2018-01-04] MEDS: DOCUSATE SODIUM 100 MG CAPSULE PO SCH ×2 (09:16→22:09)
[2018-01-04] MEDS: FOLIC ACID 1 MG TABLET PO SCH (09:16)
--- NOTE | 2018-01-04 19:27 | PDOC PROGRESS REPORT ---
Subjective Progress Note for:: 01/04/18 Subjective:: Patient's daughter is presently in agreement to comfort care placement at [facility]. Patient remain at baseline without any new issues today. No reported fever. No nausea or vomiting. P.O intake remain a challenge. Currently on supportive IV fluid therapy. Reason For Visit: ACUTE OBSTRUCTIVE UROPATHY, ACUTE KIDNEY INJURY Physical Exam Vital Signs: Temp Pulse Resp BP Pulse Ox 97.4 F 58 L 15 132/78 H 99 01/04/18 15:27 01/04/18 15:27 01/04/18 15:27 01/04/18 15:27 01/04/18 16:49 Pulse Oximeter Continuous Start: 12/24/17 12: 58 Freq: RTQ4 Status: Complete Document 12/26/17 00:00 SFL (Rec: 12/26/17 00:09 SFL [id number]) Pulse Oximetry Assessment Oxygen Saturation (92-100) 96 Oxygen Flow Rate (L/min) 6 Oxygen Delivery Method Nasal Cannula Equipment Usage Equipment in Use Continuous Pulse Oximeter 24 Hour Charge Charge Now Continuous SpO2 Machine # 13 Pulse Oximeter Continuous Start: 12/30/17 11: 50 Freq: RTQ4 Status: Active Document 01/04/18 16:49 [facility] (Rec: 01/04/18 18:55 [facility] [id number]) Pulse Oximetry Assessment Oxygen Saturation (92-100) 99 Oxygen Flow Rate (L/min) 1.0 Fraction of Inspired Oxygen (FIO2) 24 Equipment Usage Equipment in Use Continuous SpO2 Machine # N-8 Intake & Output 01/03/18 01/04/18 01/05/18 06:59 06:59 06:59 Intake Total 1175 1336 976 Output Total 890 910 691 Balance 285 426 285 Weight 64.6 kg 64 kg Physical Exam: General appearance: PRESENT: no acute distress Head exam: PRESENT: atraumatic, normocephalic Eye exam: PRESENT: conjunctiva pink, EOMI, PERRLA. ABSENT: scleral icterus Mouth exam: PRESENT: moist, tongue midline Respiratory exam: PRESENT: clear to auscultation denita, decrease breath sounds lung bases, right chest tube draining satisfactorily Cardiovascular exam: PRESENT: RRR. ABSENT: diastolic murmur, rubs, systolic murmur Vascular exam: ABSENT: pallor GI/Abdominal exam: PRESENT: normal bowel sounds, soft. ABSENT: distended, guarding, mass, organomegaly, rebound, tenderness Genitourinary exam: PRESENT: indwelling catheter - suprapubic catheter Extremities exam: ABSENT: pedal edema Musculoskeletal exam: PRESENT: deformity - related to multiple joints involvement with arthritis Neurological exam: PRESENT: alert, awake Psychiatric exam: PRESENT: appropriate affect, normal mood. ABSENT: homicidal ideation, suicidal ideation Skin exam: PRESENT: dry, warm, new left arm skin tear, sacral pressure ulcer. Murmur grade: 3 Results Laboratory Results: 12/30/17 10:50 01/04/18 07:09 01/04/18 07:09 Sodium 150.3 H Potassium 4.3 Chloride 114 H Carbon Dioxide 27 Anion Gap 9 BUN 50 H Creatinine 2.09 H Est GFR ( Amer) 37 L Est GFR (Non-Af Amer) 30 L Glucose 68 L Calcium 9.1 12/26/17 12/26/17 12/26/17 03:47 03:47 09:59 Creatine Kinase 21 L 23 L CK-MB (CK-2) 0.84 Troponin I < 0.012 12/26/17 12/26/17 12/26/17 09:59 16:15 16:15 Creatine Kinase 26 L CK-MB (CK-2) 1.23 1.23 Troponin I < 0.012 0.014 Impressions: Head CT 12/03/17 02:18 IMPRESSION: No acute intracranial abnormality TECHNICAL DOCUMENTATION: Quality ID # 436: Final reports with documentation of one or more dose reduction techniques (e.g., Automated exposure control, adjustment of the mA and/or kV according to patient size, use of iterative reconstruction technique) 2010 [employer]- All Rights Reserved Thoracentesis Ultrasound 12/16/17 00:00 IMPRESSION: SUCCESSFUL THORACENTESIS USING ULTRASOUND GUIDANCE. Chest Ultrasound 12/25/17 00:00 IMPRESSION: 1 Right moderate pleural effusion. Chest X-Ray 12/28/17 06:00 IMPRESSION: Right chest tube in place, no pneumothorax Persisting consolidation in the right and left retrocardiac regions atelectasis versus pneumonia. Assessment & Plan - Diagnosis (1) Altered mental status Qualifiers: Altered mental status type: unspecified Qualified Code(s): R41.82 - Altered mental status, unspecified Is this a current diagnosis for this admission?: Yes (2) Acute bilateral obstructive uropathy Is this a current diagnosis for this admission?: Yes (3) Catheter-associated urinary tract infection Qualifiers: Indwelling urinary catheter type: cystostomy catheter Encounter type: initial encounter Qualified Code(s): T83.510A - Infection and inflammatory reaction due to cystostomy catheter, initial encounter; N39.0 - Urinary tract infection, site not specified; N39.0 - Urinary tract infection, site not specified Is this a current diagnosis for this admission?: Yes (4) Acute kidney injury Is this a current diagnosis for this admission?: Yes (5) Diabetes mellitus type 2 in nonobese Is this a current diagnosis for this admission?: Yes (6) Chronic atrial fibrillation Is this a current diagnosis for this admission?: Yes (7) Hypertension Qualifiers: Hypertension type: essential hypertension Qualified Code(s): I10 - Essential (primary) hypertension Is this a current diagnosis for this admission?: Yes (8) Congestive heart failure Is this a current diagnosis for this admission?: Yes (9) Coronary artery disease Qualifiers: Coronary Disease-Associated Artery/Lesion type: unspecified vessel or lesion type Is this a current diagnosis for this admission?: Yes (10) Pressure injury of sacral region, stage 2 Is this a current diagnosis for this admission?: Yes - Time Time Spent with patient: 25-34 minutes Medications reviewed and adjusted accordingly: Yes Anticipated discharge: SNF, Hospice Within: Other - Inpatient Certification Based on my medical assessment, after consideration of the patient's comorbidities, presenting symptoms, or acuity I expect that the services needed warrant INPATIENT care.: Yes I certify that my determination is in accordance with my understanding of Medicare's requirements for reasonable and necessary INPATIENT services [42 CFR 412.3e].: Yes Medical Necessity: Need Close Monitoring Due to Risk of Patient Decompensation, Need For IV Fluids, Need For Continuous Telemetry Monitoring, Risk of Complication if Not Cared For in Hospital Post Hospital Care: D/C or Transfer Summary - Plan Summary Plan Summary: Change IV fluid to D5W at 50mL/hour. Request surgicalist follow up evaluation regarding chest tube status and possible removal. Discuss bed availability with estate planner.
[2018-01-04] MEDS: DEXTROSE 5%-WATER 1000 ML 1,000 ML IV PRN (20:26)
[2018-01-04] MEDS: INSULIN REG, HUMAN 100 UNIT/ML 3 ML VIAL (PYX) SUBCUT PRN (22:09)
[2018-01-05] MEDS: APIXABAN 2.5 MG TABLET PO SCH ×2 (09:52→22:40)
[2018-01-05] MEDS: SACUBITRIL/VALSARTAN 24 MG/26 MG TABLET PO SCH ×2 (09:52→17:22)
[2018-01-05] MEDS: DOCUSATE SODIUM 100 MG CAPSULE PO SCH ×2 (09:52→22:40)
[2018-01-05] MEDS: SITAGLIPTIN PHOSPHATE 50 MG TABLET PO SCH (09:52)
[2018-01-05] MEDS: FOLIC ACID 1 MG TABLET PO SCH (09:52)
--- NOTE | 2018-01-05 12:36 | RADIOLOGY REPORT (SQ) ---
EXAM DESCRIPTION: CHEST 2 VIEWS COMPLETED DATE/TIME: 01/05/2018 12:12 pm REASON FOR STUDY: Follow-up pleural effusion COMPARISON: 12/28/2017 EXAM PARAMETERS: NUMBER OF VIEWS: two views TECHNIQUE: Digital Frontal and Lateral radiographic views of the chest acquired. RADIATION DOSE: NA LIMITATIONS: none FINDINGS: LUNGS AND PLEURA: No definite right pleural effusion is identified. Linear densities are identified in the right lung base most consistent with atelectatic changes no pneumothorax is identif ied. Left basilar densities appear minimally improved. Remaining lung rivas are clear. MEDIASTINUM AND HILAR STRUCTURES: No masses or contour abnormalities. HEART AND VASCULAR STRUCTURES: The configuration of the heart and mediastinal structures is unchanged . BONES: No acute findings. HARDWARE: Chest tube is again identified projected in the right lower hemithorax. Pool chamber trans venous pacemaker is again identified. Central line is been removed since the previous study. Left s houlder prosthesis is again identified. OTHER: No other significant finding. IMPRESSION: No residual pleural effusion on the right. No pneumothorax is seen. Linear densities a re identified in the right lung base most consistent with atelectatic changes. Left basilar densitie s appear minimally improved. Other findings as noted above TECHNICAL DOCUMENTATION: JOB ID: [id number] [employer] [place]- All Rights Reserved Reading location - IP/workstation name: [email or web address]
--- NOTE | 2018-01-05 13:53 | PDOC CONSULTATION ---
History of Present Illness Admission Date/PCP: 12/03/17 07:39 JOHN OSBORNE MD Patient complains of: Chest tube History of Present Illness: DAREK SIMON is a 82 year old male who had a chest tube placed for pleural effusion couple weeks ago. The output has markedly diminished and he is pending discharge to rehab and primary physician is requesting chest tube removal. Past Medical History Cardiac Medical History: Reports: Congestive Heart Failure, Myocardial Infarction - pacemaker, stent, Hypertension Denies: Coronary Artery Disease Pulmonary Medical History: Reports: Chronic Obstructive Pulmonary Disease (COPD) , Sleep Apnea Denies: Asthma, Bronchitis, Pneumonia Neurological Medical History: Denies: Seizures Endocrine Medical History: Reports: Diabetes Mellitus Type 2 GI Medical History: Reports: Gastroesophageal Reflux Disease Musculoskeltal Medical History: Reports: Arthritis Psychiatric Medical History: Reports: Depression Hematology: Reports: Anemia Denies: Sickle Cell Disease Past Surgical History Past Surgical History: Reports: Cardiac Catheterization, Coronary Stent, Orthopedic Surgery, Pacemaker Social History Lives with: Snf Smoking Status: Never Smoker Frequency of Alcohol Use: None Hx Recreational Drug Use: No Drugs: None Hx Prescription Drug Abuse: No - Advance Directive Resuscitation Status: Do Not Resuscitate Family History Family History: Reviewed & Not Pertinent Parental Family History Reviewed: No Children Family History Reviewed: No Sibling(s) Family History Reviewed.: No Medication/Allergy Home Medications: Amiodarone HCl [Cordarone 200 mg Tablet] 200 mg PO QAM 10/25/16 Citalopram Hydrobromide [Celexa 20 mg Tablet] 20 mg PO QAM 10/25/16 Docusate Sodium [Colace 100 mg Capsule] 100 mg PO Q12 10/25/16 Furosemide [Lasix] 60 mg PO QAM 10/25/16 Metoprolol Succinate [Toprol Xl 25 mg Tab.sr] 12.5 mg PO QAM 10/25/16 Nitroglycerin [Nitrostat] 0.4 mg SL Q5MP PRN MDD 3 TABLETS 10/25/16 Pantoprazole Sodium [Protonix] 20 mg PO Q6AM 10/25/16 Ammonium Lactate [Lac-Hydrin 12% Lotion 225Gm/Bottle] 1 applic TP Q12HP PRN Apixaban [Eliquis 2.5 mg Tablet] 2.5 mg PO Q12 11/12/17 Cranberry Fruit Extract [Cranberry 500 mg Capsule] 500 mg PO QAM 11/12/17 Insulin Aspart [Novolog Insulin 100 Unit/1 ml 10 ml] 0 unit SUBCUT ACHS Insulin Detemir [Levemir Flextouch] 10 unit SQ QAM 11/12/17 Ipratropium/Albuterol Sulfate [Duoneb 3 ml Ampul] 3 ml NEB RTQ4HP PRN 11/12/17 Linagliptin [Tradjenta] 5 mg PO QAM 11/12/17 Nystatin [Mycostatin Topical Powder 15 gm] 1 applic TP BID MDD APPLY TO GROIN Clotrimazole 1% Cream [Lotrimin 1% Cream 15 gm] 1 applic TP BID tube 11/26/17 Valsartan [Diovan 80 mg Tablet] 80 mg PO DAILY #30 tablet 11/26/17 Acetaminophen [Tylenol 325 mg Tablet] 650 mg PO Q4HP PRN 12/03/17 Folic Acid [Folvite 1 mg Tablet] 1 mg PO DAILY 12/03/17 Allergies/Adverse Reactions: No Known Drug Allergies Allergy (Verified 12/16/17 18:49) Physical Exam Vital Signs: Temp Pulse Resp BP Pulse Ox 97.9 F 59 L 14 109/60 92 01/05/18 12:00 01/05/18 12:00 01/05/18 12:00 01/05/18 12:00 01/05/18 12:00 Pulse Oximeter Continuous Start: 12/24/17 12: 58 Freq: RTQ4 Status: Complete Document 12/26/17 00:00 SFL (Rec: 12/26/17 00:09 SFL [email or web address]) Pulse Oximetry Assessment Oxygen Saturation (92-100) 96 Oxygen Flow Rate (L/min) 6 Oxygen Delivery Method Nasal Cannula Equipment Usage Equipment in Use Continuous Pulse Oximeter 24 Hour Charge Charge Now Continuous SpO2 Machine # 13 Pulse Oximeter Continuous Start: 12/30/17 11: 50 Freq: RTQ4 Status: Active Document 01/05/18 04:06 EST (Rec: 01/05/18 04:06 EST [email or web address]) Pulse Oximetry Assessment Oxygen Saturation (92-100) 100 Oxygen Flow Rate (L/min) 1 Oxygen Delivery Method Nasal Cannula Fraction of Inspired Oxygen (FIO2) 24 Equipment Usage Equipment in Use Continuous SpO2 Machine # 8 Intake & Output 08/22/18 08/23/18 08/24/18 06:59 06:59 06:59 Intake Total 1336 2038 118 Output Total 910 1041 100 Balance 426 997 18 Weight 64 kg 67.2 kg General appearance: PRESENT: no acute distress, cooperative Respiratory exam: PRESENT: clear to auscultation denita, other - Right-sided chest tube in place. No air leak. Minimal serosanguineous output. Cardiovascular exam: PRESENT: RRR Results Laboratory Results: 12/30/17 10:50 01/04/18 07:09 01/05/18 03:56 Stool Occult Blood NEGATIVE 12/26/17 12/26/17 12/26/17 03:47 03:47 09:59 Creatine Kinase 21 L 23 L CK-MB (CK-2) 0.84 Troponin I < 0.012 12/26/17 12/26/17 12/26/17 09:59 16:15 16:15 Creatine Kinase 26 L CK-MB (CK-2) 1.23 1.23 Troponin I < 0.012 0.014 Impressions: Head CT 12/03/17 02:18 IMPRESSION: No acute intracranial abnormality TECHNICAL DOCUMENTATION: Quality ID # 436: Final reports with documentation of one or more dose reduction techniques (e.g., Automated exposure control, adjustment of the mA and/or kV according to patient size, use of iterative reconstruction technique) 2010 [employer]- All Rights Reserved Thoracentesis Ultrasound 12/16/17 00:00 IMPRESSION: SUCCESSFUL THORACENTESIS USING ULTRASOUND GUIDANCE. Chest Ultrasound 12/25/17 00:00 IMPRESSION: 1 Right moderate pleural effusion. Chest X-Ray 01/05/18 00:00 IMPRESSION: No residual pleural effusion on the right. No pneumothorax is seen. Linear densities are identified in the right lung base most consistent with atelectatic changes. Left basilar densities appear minimally improved. Other findings as noted above Assessment & Plan - Diagnosis (1) Pleural effusion Is this a current diagnosis for this admission?: Yes Plan: Pleural effusion resolved. Chest tube pulled without problems. Stat portable chest x-ray ordered. Recommend changing the dressing at the chest tube site at the rehab facility starting a couple of days, daily for about a week more.
[2018-01-05] MEDS: DEXTROSE 5%-WATER 1000 ML 1,000 ML IV PRN (14:42)
--- NOTE | 2018-01-05 15:03 | RADIOLOGY REPORT (SQ) ---
EXAM DESCRIPTION: CHEST SINGLE VIEW COMPLETED DATE/TIME: 01/05/2018 2:50 pm REASON FOR STUDY: chest tube removal COMPARISON: Earlier same day. NUMBER OF VIEWS: One view. TECHNIQUE: Single frontal radiographic image of the chest acquired. LIMITATIONS: None. FINDINGS: LUNGS AND PLEURA: Stable appearance. No pneumothorax. MEDIASTINUM AND HEART: Stable heart size and mediastinal structures. SUPPORT DEVICES: Interval removal of right chest tube. BONY STRUCTURES: No acute findings. HARDWARE: None. OTHER: No other significant finding. IMPRESSION: No pneumothorax status post chest tube removal. Reading location - IP/workstation name: [email or web address]
--- NOTE | 2018-01-05 18:53 | PDOC PROGRESS REPORT ---
Subjective Progress Note for:: 01/05/18 Reason For Visit: ACUTE OBSTRUCTIVE UROPATHY, ACUTE KIDNEY INJURY Physical Exam Vital Signs: Temp Pulse Resp BP Pulse Ox 97.8 F 62 15 126/72 H 98 01/05/18 16:00 01/05/18 16:00 01/05/18 16:00 01/05/18 16:00 01/05/18 17:00 Pulse Oximeter Continuous Start: 12/24/17 12: 58 Freq: RTQ4 Status: Complete Document 12/26/17 00:00 SFL (Rec: 12/26/17 00:09 SFL [email or web address]) Pulse Oximetry Assessment Oxygen Saturation (92-100) 96 Oxygen Flow Rate (L/min) 6 Oxygen Delivery Method Nasal Cannula Equipment Usage Equipment in Use Continuous Pulse Oximeter 24 Hour Charge Charge Now Continuous SpO2 Machine # 13 Pulse Oximeter Continuous Start: 12/30/17 11: 50 Freq: RTQ4 Status: Active Document 01/05/18 17:00 DW (Rec: 01/05/18 17:52 DW [email or web address]) Pulse Oximetry Assessment Oxygen Saturation (92-100) 98 Oxygen Flow Rate (L/min) 0.5 Oxygen Delivery Method Nasal Cannula Fraction of Inspired Oxygen (FIO2) 22 Equipment Usage Equipment in Use Continuous SpO2 Machine # [id number] Intake & Output 01/04/18 01/05/18 01/06/18 06:59 06:59 06:59 Intake Total 1336 2038 1031 Output Total 910 1041 100 Balance 426 997 931 Weight 64 kg 67.2 kg Physical Exam: General appearance: PRESENT: no acute distress Head exam: PRESENT: atraumatic, normocephalic Eye exam: PRESENT: conjunctiva pink. ABSENT: scleral icterus Mouth exam: PRESENT: moist, tongue midline Respiratory exam: PRESENT: clear to auscultation denita, decrease breath sounds lung bases, Cardiovascular exam: PRESENT: RRR. ABSENT: diastolic murmur, rubs, systolic murmur Vascular exam: ABSENT: pallor. Right sided chest tube is out. Site dressing satisfactory. GI/Abdominal exam: PRESENT: normal bowel sounds, soft. ABSENT: distended, guarding, mass, organomegaly, rebound, tenderness Genitourinary exam: PRESENT: indwelling catheter - suprapubic catheter Extremities exam: ABSENT: pedal edema Musculoskeletal exam: PRESENT: deformity - related to multiple joints involvement with arthritis Neurological exam: PRESENT: alert, awake Psychiatric exam: PRESENT: appropriate affect, normal mood. ABSENT: homicidal ideation, suicidal ideation Skin exam: PRESENT: dry, warm, new left arm skin tear, sacral pressure ulcer. Murmur grade: 3 Results Laboratory Results: 12/30/17 10:50 01/04/18 07:09 01/05/18 03:56 Stool Occult Blood NEGATIVE 12/26/17 12/26/17 12/26/17 03:47 03:47 09:59 Creatine Kinase 21 L 23 L CK-MB (CK-2) 0.84 Troponin I < 0.012 12/26/17 12/26/17 12/26/17 09:59 16:15 16:15 Creatine Kinase 26 L CK-MB (CK-2) 1.23 1.23 Troponin I < 0.012 0.014 Impressions: Head CT 12/03/17 02:18 IMPRESSION: No acute intracranial abnormality TECHNICAL DOCUMENTATION: Quality ID # 436: Final reports with documentation of one or more dose reduction techniques (e.g., Automated exposure control, adjustment of the mA and/or kV according to patient size, use of iterative reconstruction technique) 2010 [employer]- All Rights Reserved Thoracentesis Ultrasound 12/16/17 00:00 IMPRESSION: SUCCESSFUL THORACENTESIS USING ULTRASOUND GUIDANCE. Chest Ultrasound 12/25/17 00:00 IMPRESSION: 1 Right moderate pleural effusion. Chest X-Ray 01/05/18 00:00 IMPRESSION: No pneumothorax status post chest tube removal. Assessment & Plan - Diagnosis (1) Altered mental status Qualifiers: Altered mental status type: unspecified Qualified Code(s): R41.82 - Altered mental status, unspecified Is this a current diagnosis for this admission?: Yes (2) Acute bilateral obstructive uropathy Is this a current diagnosis for this admission?: Yes (3) Catheter-associated urinary tract infection Qualifiers: Indwelling urinary catheter type: cystostomy catheter Encounter type: initial encounter Qualified Code(s): T83.510A - Infection and inflammatory reaction due to cystostomy catheter, initial encounter; N39.0 - Urinary tract infection, site not specified; N39.0 - Urinary tract infection, site not specified Is this a current diagnosis for this admission?: Yes (4) Acute kidney injury Is this a current diagnosis for this admission?: Yes (5) Diabetes mellitus type 2 in nonobese Is this a current diagnosis for this admission?: Yes (6) Chronic atrial fibrillation Is this a current diagnosis for this admission?: Yes (7) Hypertension Qualifiers: Hypertension type: essential hypertension Qualified Code(s): I10 - Essential (primary) hypertension Is this a current diagnosis for this admission?: Yes (8) Congestive heart failure Is this a current diagnosis for this admission?: Yes (9) Coronary artery disease Qualifiers: Coronary Disease-Associated Artery/Lesion type: unspecified vessel or lesion type Is this a current diagnosis for this admission?: Yes (10) Pressure injury of sacral region, stage 2 Is this a current diagnosis for this admission?: Yes - Time Time Spent with patient: 25-34 minutes Medications reviewed and adjusted accordingly: Yes Anticipated discharge: SNF, Hospice Within: within 24 hours - Inpatient Certification Based on my medical assessment, after consideration of the patient's comorbidities, presenting symptoms, or acuity I expect that the services needed warrant INPATIENT care.: Yes I certify that my determination is in accordance with my understanding of Medicare's requirements for reasonable and necessary INPATIENT services [42 CFR 412.3e].: Yes Medical Necessity: Need Close Monitoring Due to Risk of Patient Decompensation, Need For IV Fluids, Need For Continuous Telemetry Monitoring, Risk of Complication if Not Cared For in Hospital Post Hospital Care: D/C or Transfer Summary - Plan Summary Plan Summary: Continue current medical management. Possible transfer to SNF on comfort care in next 24 hours if patient continue to remain clinically stable post removal of his right chest tube.
--- NOTE | 2018-01-06 08:47 | PDOC TRANSFER SUMMARY ---
General - Admit/Disc Date/PCP Admission Date/Primary Care Provider: 12/03/17 07:39 JOHN OSBORNE MD Discharge Date: 01/06/18 - Discharge Diagnosis (1) Altered mental status Is this a current diagnosis for this admission?: Yes (2) Acute bilateral obstructive uropathy Is this a current diagnosis for this admission?: Yes (3) Catheter-associated urinary tract infection Is this a current diagnosis for this admission?: Yes (4) Acute kidney injury Is this a current diagnosis for this admission?: Yes (5) Diabetes mellitus type 2 in nonobese Is this a current diagnosis for this admission?: Yes (6) Chronic atrial fibrillation Is this a current diagnosis for this admission?: Yes (7) Hypertension Is this a current diagnosis for this admission?: Yes (8) Congestive heart failure Is this a current diagnosis for this admission?: Yes (9) Coronary artery disease Is this a current diagnosis for this admission?: Yes (10) Pressure injury of sacral region, stage 2 Is this a current diagnosis for this admission?: Yes - Additional Information Resuscitation Status: Do Not Resuscitate Home Medications: Amiodarone HCl [Cordarone 200 mg Tablet] 200 mg PO QAM 10/25/16 Citalopram Hydrobromide [Celexa 20 mg Tablet] 20 mg PO QAM 10/25/16 Docusate Sodium [Colace 100 mg Capsule] 100 mg PO Q12 10/25/16 Furosemide [Lasix] 60 mg PO QAM 10/25/16 Metoprolol Succinate [Toprol Xl 25 mg Tab.sr] 12.5 mg PO QAM 10/25/16 Nitroglycerin [Nitrostat] 0.4 mg SL Q5MP PRN MDD 3 TABLETS 10/25/16 Pantoprazole Sodium [Protonix] 20 mg PO Q6AM 10/25/16 Ammonium Lactate [Lac-Hydrin 12% Lotion 225Gm/Bottle] 1 applic TP Q12HP PRN Apixaban [Eliquis 2.5 mg Tablet] 2.5 mg PO Q12 11/12/17 Cranberry Fruit Extract [Cranberry 500 mg Capsule] 500 mg PO QAM 11/12/17 Insulin Aspart [Novolog Insulin (Aspart) 100 unit/mL] 0 unit SUBCUT ACHS Insulin Detemir [Levemir Flextouch] 10 unit SQ QAM 11/12/17 Ipratropium/Albuterol Sulfate [Duoneb 3 ml Ampul] 3 ml NEB RTQ4HP PRN 11/12/17 Linagliptin [Tradjenta] 5 mg PO QAM 11/12/17 Nystatin [Mycostatin Topical Powder 15 gm] 1 applic TP BID MDD APPLY TO GROIN Clotrimazole 1% Cream [Lotrimin 1% Cream 15 gm] 1 applic TP BID tube 11/26/17 Valsartan [Diovan 80 mg Tablet] 80 mg PO DAILY #30 tablet 11/26/17 Acetaminophen [Tylenol 325 mg Tablet] 650 mg PO Q4HP PRN 12/03/17 Folic Acid [Folvite 1 mg Tablet] 1 mg PO DAILY 12/03/17 History of Present Illness Admission Date/PCP: 12/03/17 07:39 JOHN OSBORNE MD History of Present Illness: DAREK SIMON is a 82 year old male resident at [facility] patient of Dr Osborne who was brought to the ED with reported altered mental status. His initial evaluation in the ED was significant for obstruction of his suprapubic Roman catheter. Upon resolution of the obstruction with replacement of the Roman catheter, patient had significant efflux from the urinary bladder with cloudy character to the urine. Also, his laboratory evaluation revealed acute renal injury and possible urinary tract infection. His morbidities include Congestive Heart Failure, CAD s/p stent angioplasty, pacemaker, [place], Hypertension, Diabetes Mellitus Type 2, COPD, Sleep Apnea, Gastroesophageal Reflux Disease, Osteoarthritis, and Depression. Hospital Course Hospital Course: His hospital course was remarkable for pneumonia with large right parapneumonic pleural effusion and need for chest tube placement for drainage on 12/24/17. His chest tube was removed on 01/04/18 and he has remain fairly stable thereafter. His overall functional level remain poor. Patient developed stage 2 sacral pressure ulcer that is currently treated with Allevyn or Duoderm dressing. He needs assistance with feeding. Family eventually agreed to comfort care level upon return to SNF. He remain on DNR status while on admission. Physical Exam Vital Signs: Temp Pulse Resp BP Pulse Ox 97.8 F 102 H 17 124/74 99 01/06/18 03:04 01/06/18 03:04 01/06/18 03:04 01/06/18 03:04 01/06/18 03:28 Pulse Oximeter Continuous Start: 12/24/17 12: 58 Freq: RTQ4 Status: Complete Document 12/26/17 00:00 SFL (Rec: 12/26/17 00:09 SFL [email or web address]) Pulse Oximetry Assessment Oxygen Saturation (92-100) 96 Oxygen Flow Rate (L/min) 6 Oxygen Delivery Method Nasal Cannula Equipment Usage Equipment in Use Continuous Pulse Oximeter 24 Hour Charge Charge Now Continuous SpO2 Machine # 13 Pulse Oximeter Continuous Start: 12/30/17 11: 50 Freq: RTQ4 Status: Active Document 01/06/18 03:28 CBR (Rec: 01/06/18 04:38 CBR [email or web address]) Pulse Oximetry Assessment Oxygen Saturation (92-100) 99 Oxygen Flow Rate (L/min) 1 Oxygen Delivery Method Nasal Cannula Fraction of Inspired Oxygen (FIO2) 24 Equipment Usage Equipment in Use Continuous SpO2 Machine # N8 Intake & Output 01/05/18 01/06/18 01/07/18 06:59 06:59 06:59 Intake Total 2038 1231 Output Total 1041 550 Balance 997 681 Weight 67.2 kg 66.5 kg General appearance: PRESENT: no acute distress Head exam: PRESENT: atraumatic, normocephalic Eye exam: PRESENT: conjunctiva pink. ABSENT: scleral icterus Mouth exam: PRESENT: moist, tongue midline Respiratory exam: PRESENT: clear to auscultation denita, decrease breath sounds lung bases, Cardiovascular exam: PRESENT: RRR. ABSENT: diastolic murmur, rubs, systolic murmur Vascular exam: ABSENT: pallor. Right sided chest tube is out. Site dressing satisfactory. GI/Abdominal exam: PRESENT: normal bowel sounds, soft. ABSENT: distended, guarding, mass, organomegaly, rebound, tenderness Genitourinary exam: PRESENT: indwelling catheter - suprapubic catheter Extremities exam: ABSENT: pedal edema Musculoskeletal exam: PRESENT: deformity - related to multiple joints involvement with arthritis Neurological exam: PRESENT: alert, awake Psychiatric exam: PRESENT: appropriate affect, normal mood. ABSENT: homicidal ideation, suicidal ideation Skin exam: PRESENT: dry, warm, new left arm skin tear, sacral pressure ulcer. Results Laboratory Results: 12/30/17 10:50 01/04/18 07:09 12/26/17 12/26/17 12/26/17 03:47 03:47 09:59 Creatine Kinase 21 L 23 L CK-MB (CK-2) 0.84 Troponin I < 0.012 12/26/17 12/26/17 12/26/17 09:59 16:15 16:15 Creatine Kinase 26 L CK-MB (CK-2) 1.23 1.23 Troponin I < 0.012 0.014 Impressions: Head CT 12/03/17 02:18 IMPRESSION: No acute intracranial abnormality TECHNICAL DOCUMENTATION: Quality ID # 436: Final reports with documentation of one or more dose reduction techniques (e.g., Automated exposure control, adjustment of the mA and/or kV according to patient size, use of iterative reconstruction technique) 2010 [employer]- All Rights Reserved Thoracentesis Ultrasound 12/16/17 00:00 IMPRESSION: SUCCESSFUL THORACENTESIS USING ULTRASOUND GUIDANCE. Chest Ultrasound 12/25/17 00:00 IMPRESSION: 1 Right moderate pleural effusion. Chest X-Ray 01/05/18 00:00 IMPRESSION: No pneumothorax status post chest tube removal. Transfer Plan - Disposition Transfer Plan: Transfer to [facility] on comfort care. - Time Spent with Patient Time spent with patient: Greater than 30 Minutes - in care coordination and post discharge care plan. Qualifiers - * PATIENT BEING DISCHARGED WITH ANY OF THE FOLLOWING DIAGNOSIS: No Plan Discharge Plan: Transfer to [facility] today. Follow up care will be under directive of Dr Osborne at the [facility].
[2018-01-06] MEDS: SITAGLIPTIN PHOSPHATE 50 MG TABLET PO SCH (10:41)
[2018-01-06] MEDS: DOCUSATE SODIUM 100 MG CAPSULE PO SCH (10:41)
[2018-01-06] MEDS: APIXABAN 2.5 MG TABLET PO SCH (10:41)
[2018-01-06] MEDS: SACUBITRIL/VALSARTAN 24 MG/26 MG TABLET PO SCH (10:41)
[2018-01-06] MEDS: FOLIC ACID 1 MG TABLET PO SCH (10:43)
[2018-01-06 11:55] VITALS: BP 139/74
== END 2018-01-06 12:37 | DRG 698 ==
LOC: ER 02:08 → EH 07:39 → 5 17:34 → 3N 12-18 16:12 → ICU 12-26 04:02 → 3S 12-27 12:14 → ICU 01-06 06:57 → 3S 01-06 06:58
PROVIDERS: ADMIT Internal Medicine; ATTEND Internal Medicine
PROC: 0W993ZX Drainage of Right Pleural Cavity, Percutaneous Approach, Diagnostic (ICD-10-PCS; principal; 2017-12-16)
PROC: 0W9930Z Drainage of Right Pleural Cavity with Drainage Device, Percutaneous Approach (ICD-10-PCS; 2017-12-25)
PROC: 02H633Z Insertion of Infusion Device into Right Atrium, Percutaneous Approach (ICD-10-PCS; 2017-12-26)
PROC: B244ZZZ Ultrasonography of Right Heart (ICD-10-PCS; 2017-12-26)
DX: T83.510A Infection and inflammatory reaction due to cystostomy catheter, initial encounter (principal); G93.41 Metabolic encephalopathy; N17.9 Acute kidney failure, unspecified; I50.23 Acute on chronic systolic (congestive) heart failure; J18.9 Pneumonia, unspecified organism; N39.0 Urinary tract infection, site not specified; N13.8 Other obstructive and reflux uropathy; J91.8 Pleural effusion in other conditions classified elsewhere; I13.0 Hypertensive heart and chronic kidney disease with heart failure and stage 1 through stage 4 chronic kidney disease, or unspecified chronic kidney disease; N18.4 Chronic kidney disease, stage 4 (severe); Z66 Do not resuscitate; L89.152 Pressure ulcer of sacral region, stage 2; B96.5 Pseudomonas (aeruginosa) (mallei) (pseudomallei) as the cause of diseases classified elsewhere; I48.0 Paroxysmal atrial fibrillation; J44.9 Chronic obstructive pulmonary disease, unspecified; K21.9 Gastro-esophageal reflux disease without esophagitis; D63.1 Anemia in chronic kidney disease; E11.22 Type 2 diabetes mellitus with diabetic chronic kidney disease; I25.10 Atherosclerotic heart disease of native coronary artery without angina pectoris; G47.30 Sleep apnea, unspecified; I07.1 Rheumatic tricuspid insufficiency; M19.90 Unspecified osteoarthritis, unspecified site; F32.9 Major depressive disorder, single episode, unspecified; Z95.810 Presence of automatic (implantable) cardiac defibrillator; Z79.01 Long term (current) use of anticoagulants; Z79.4 Long term (current) use of insulin; Z79.899 Other long term (current) drug therapy
CPT/HCPCS: 32555; 36415; 36600; 70450; 71045; 71046; 76604; 80048; 80053; 80307; 81001; 82150; 82272; 82550; 82553; 82570; 82803; 82945; 82962; 83036; 83615; 83735; 84155; 84156; 84157; 84311; 84484; 85025; 85610; 85730; 87015; 87040; 87070; 87075; 87086; 87088; 87101; 87116; 87186; 87205; 87206; 87252; 88305; 89050; 93005; 93010; 93306; 93971; 94762; 96361; 96365; 99285; C1751; J0692; J0696; J0744; J1250; J1642; J1815; J1940; J2270; J2370; J3490; J7030; J7050; J7060; J7620

== ENCOUNTER 2018-03-05 08:48 | Emergency (ER) | payer MEDICARE, OTHER ==
--- NOTE | 2018-03-05 09:15 | ER Document Report ---
ED General - General Stated Complaint: ALTERED MENTAL STATUS Time Seen by Provider: 03/05/18 09:04 Mode of Arrival: Medic Information source: Transfer Record, Emergency Med Personnel Cannot obtain history due to: Dementia Notes: Patient brought to the ED by EMS for blood in urine per nursing facility. Blood was noticed this AM. Patient has hx of dementia and is acting at his normal baseline per nurse. DNR code status. TRAVEL OUTSIDE OF THE [place] IN LAST 30 DAYS: No - HPI Onset: Just prior to arrival Onset/Duration: Sudden Quality of pain: No pain Associated symptoms: None Exacerbated by: Denies Relieved by: Denies Recently seen / treated by doctor: No - Related Data Allergies/Adverse Reactions: No Known Drug Allergies Allergy (Verified 12/16/17 18:49) Past Medical History - General Cannot obtain history due to: Dementia - Social History Smoking Status: Unknown if Ever Smoked Family History: Reviewed & Not Pertinent - Past Medical History Cardiac Medical History: Reports: Hx Congestive Heart Failure, Hx Heart Attack - pacemaker, stent, Hx Hypertension Denies: Hx Coronary Artery Disease Pulmonary Medical History: Reports: Hx COPD, Hx Sleep Apnea Denies: Hx Asthma, Hx Bronchitis, Hx Pneumonia Neurological Medical History: Denies: Hx Cerebrovascular Accident, Hx Seizures Endocrine Medical History: Reports: Hx Diabetes Mellitus Type 2 Renal/ Medical History: Denies: Hx Peritoneal Dialysis GI Medical History: Reports: Hx Gastroesophageal Reflux Disease Musculoskeletal Medical History: Reports Hx Arthritis Psychiatric Medical History: Reports: Hx Depression Past Surgical History: Reports: Hx Cardiac Catheterization, Hx Coronary Stent, Hx Orthopedic Surgery, Hx Pacemaker - Immunizations Hx Diphtheria, Pertussis, Tetanus Vaccination: No Review of Systems - Review of Systems -: Yes ROS unobtainable due to patient's medical condition Physical Exam - Vital signs Vitals: Resp BP 22 H 120/81 03/05/18 08:54 03/05/18 08:54 - General Notes: PHYSICAL EXAMINATION: GENERAL: Cachetic. Demented. Ill appearing. HEAD: Atraumatic. EYES: Pupils equal round and reactive to light, extraocular movements intact, sclera anicteric, conjunctiva are normal. ENT: Nares patent, oropharynx clear without exudates. Moist mucous membranes. NECK: Normal range of motion, supple without lymphadenopathy LUNGS: Breath sounds clear to auscultation bilaterally and equal. No wheezes rales or rhonchi. HEART: Regular rate and rhythm without murmurs ABDOMEN: Soft, nontender, nondistended abdomen. No guarding, no rebound. Suprapubic catheter placed. Musculoskeletal: Normal range of motion, no pitting or edema. No cyanosis. NEUROLOGICAL: Cranial nerves grossly intact. Normal speech. Normal sensory, motor exams SKIN: Warm, Dry, normal turgor, no rashes or lesions noted. Course - Re-evaluation Re-evalutation: 03/05/18 09:48 Nursing facility contacted as report per EMS included AMS. Nurse states that he' s not as talkative today as normal. Patient has a hx of dementia and is mental status fluctuates per nurse. 03/05/18 10:52 Labs obtained. BUN/Cr worsening. +RBC in urine and leukocyte esterase. Hx of bladder cancer. I contacted the hospitalist mission manager for Dr. Osborne, Dr. Simpson. He would like CT abd/pelvis done. He's concerned that the patient may need bladder cauderization and require transfer to [facility]. Patient sees Dr. Khan, urology at [facility]. 03/05/18 12:48 CT abd/pel done. No acute process seen. Patient given 1L of fluid and rocephin. Blood and urine cultures ordered. Patient on eliquis for atrial fibrillation. I contacted [facility] for transfer as there's not nephrology or urology mission manager. I spoke with Dr. Epps. He accepts transfer of the patient on behalf of Dr. Lunsford. Patient is currently stable. 03/05/18 12:57 - Vital Signs Vital signs: Temp Pulse Resp BP Pulse Ox 98.1 F 19 107/68 96 03/05/18 09:15 03/05/18 09:45 03/05/18 09:45 03/05/18 09:45 - Laboratory Result Diagrams: 03/05/18 09:26 03/05/18 09:26 Laboratory results interpreted by me: 03/05/18 03/05/18 03/05/18 09:10 09:26 09:26 WBC 12.9 H RBC 3.56 L Hgb 9.7 L Hct 29.5 L RDW 17.3 H Seg Neutrophils % 82.5 H Lymphocytes % 6.8 L Absolute Neutrophils 10.6 H Chloride 110 H BUN 130 H Creatinine 4.26 H Est GFR ( Amer) 16 L Est GFR (Non-Af Amer) 13 L Glucose 130 H Calcium 10.3 H Direct Bilirubin 0.5 H Alkaline Phosphatase 167 H Albumin 2.9 L Urine Protein >=500 H Urine Blood SMALL H Ur Leukocyte Esterase TRACE H Discharge - Discharge Clinical Impression: Hematuria Qualifiers: Hematuria type: gross Qualified Code(s): R31.0 - Gross hematuria Renal failure Qualifiers: Renal failure chronicity: unspecified chronicity Qualified Code(s): N19 - Unspecified kidney failure Condition: Stable Disposition: [facility]ICAL ACCESS HOSPITAL Referrals: JOHN OSBORNE MD [Primary Care Provider] - Follow up as needed
[2018-03-05 09:51] LABS: ABSOLUTE BASOPHILS # (AUTO) 0.1 10^3/uL (0.0-0.2); ABSOLUTE EOSINOPHILS # (AUTO) 0.2 10^3/uL (0.0-0.6); ABSOLUTE LYMPHOCYTES (AUTO) 0.9 10^3/uL (0.5-4.7); ABSOLUTE MONOCYTES (AUTO) 1.1 10^3/uL (0.1-1.4); ABSOLUTE NEUT (AUTO) 10.6 10^3/uL (1.7-8.2); BASOPHILS % (AUTO) 0.7 % (0-2); EOSINOPHILS % (AUTO) 1.4 % (0-6); HEMATOCRIT 29.5 % (37.9-51.0); HEMOGLOBIN 9.7 g/dL (13.5-17.0); LYMPHOCYTES % (AUTO) 6.8 % (13-45); MEAN CORPUSCULAR HEMOGLOBIN 27.4 pg (27.0-33.4); MEAN CORPUSCULAR VOLUME 83 fl (80-97); MONOCYTES % (AUTO) 8.6 % (3-13); PLATELET COUNT 237 10^3/uL (150-450); RED BLOOD COUNT 3.56 10^6/uL (4.35-5.55); RED CELL DISTRIBUTION WIDTH 17.3 % (11.5-14.0); SEGMENTED NEUTROPHILS % (AUTO) 82.5 % (42-78); TOTAL CELLS COUNTED % (AUTO) 100 %; WHITE BLOOD COUNT 12.9 10^3/uL (4.0-10.5)
[2018-03-05 09:59] LABS: APPEARANCE,URINE TURBID; BILIRUBIN,URINE NEGATIVE (NEGATIVE); GLUCOSE, URINE NEGATIVE (NEGATIVE); KETONES,URINE NEGATIVE (NEGATIVE); LEUKOCYTE ESTERASE,URINE TRACE (NEGATIVE); NITRITE,URINE NEGATIVE (NEGATIVE); PROTEIN,URINE >=500 mg/dL (NEGATIVE); URINE SPECIFIC GRAVITY 1.017; UROBILINOGEN,URINE NEGATIVE mg/dL (<2.0)
[2018-03-05 10:00] LABS: COLOR,URINE RED; TRIPLE PHOSPHATE CRYSTAL,URINE TOO NUMEROUS TO CNT /HPF
[2018-03-05 10:11] LABS: ALANINE AMINOTRANSFERASE 26 U/L (21-72); ALBUMIN 2.9 g/dL (3.5-5.0); ALKALINE PHOSPHATASE 167 U/L (38-126); ANION GAP 11 (5-19); ASPARTATE AMINO TRANSFERASE 31 U/L (17-59); BILIRUBIN,DIRECT 0.5 mg/dL (0.0-0.4); BILIRUBIN,TOTAL 0.8 mg/dL (0.2-1.3); CALCIUM 10.3 mg/dL (8.4-10.2); CARBON DIOXIDE 23 mmol/L (22-30); CHLORIDE 110 mmol/L (98-107); GLUCOSE 130 mg/dL (75-110); POTASSIUM 4.7 mmol/L (3.6-5.0); SODIUM 143.6 mmol/L (137-145); TOTAL PROTEIN 6.7 g/dL (6.3-8.2)
[2018-03-05 10:19] LABS: BLOOD UREA NITROGEN 130 mg/dL (7-20)
[2018-03-05] MEDS ORDERED: CEFTRIAXONE INJ 1000 MG VIAL IV ONE (10:36)
[2018-03-05] MEDS ORDERED: NORMAL SALINE 1000 ML 1,000 ML IV ONE ×2 (10:37→12:47)
--- NOTE | 2018-03-05 11:56 | RADIOLOGY REPORT (SQ) ---
EXAM DESCRIPTION: CHEST SINGLE VIEW COMPLETED DATE/TIME: 03/05/2018 11:09 am REASON FOR STUDY: ams COMPARISON: Chest films 12/16/2017, 12/24/2017, 12/26/2017, 01/05/2018 EXAM PARAMETERS: NUMBER OF VIEWS: One view. TECHNIQUE: Single frontal radiographic view of the chest acquired. RADIATION DOSE: NA LIMITATIONS: None. FINDINGS: LUNGS AND PLEURA: Minimal right-sided pleural thickening lateral pleural space extending i nto the major and minor fissures. Mild volume loss right lower lobe with retrocardiac air bronchograms from atelectasis. Left hemithorax unremarkable. No pneumothorax. MEDIASTINUM AND HILAR STRUCTURES: No masses. Contour normal. HEART AND VASCULAR STRUCTURES: Moderate cardiomegaly BONES: Marked osteoporosis, question myeloma 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 IMPRESSION: Chronic right pleuroparenchymal scarring. Atelectasis medial right lung base. Profound osteopenia/ osteoporosis particularly in the right humerus and clavicles. Correlate [facility] for myeloma TECHNICAL DOCUMENTATION: JOB ID: [id number] [employer]- All Rights Reserved Reading location - IP/workstation name: [email or web address]
--- NOTE | 2018-03-05 11:59 | RADIOLOGY REPORT (SQ) ---
EXAM DESCRIPTION: CT ABD/PELVIS NO ORAL OR IV COMPLETED DATE/TIME: 03/05/2018 11:13 am REASON FOR STUDY: bladder cancer COMPARISON: CT abdomen pelvis 10/28/2016, 01/28/2011 TECHNIQUE: CT scan of the abdomen and pelvis performed without intravenous or oral contrast. Images reviewed with lung, soft tissue, and bone windows. Reconstructed coronal and sagittal MPR images revi ewed. All images stored on PACS. All CT scanners at this facility use dose modulation, iterative reconstruction, and/or weight based d osing when appropriate to reduce radiation dose to as low as reasonably achievable (ALARA). [facility]: Dose Right [facility]: CareDose [facility]: Dose Right [facility]: Teradose 4D [facility]: Smart [employer] [address] RADIATION DOSE: CT Rad equipment meets quality standard of care and radiation dose reduction techniq ues were employed. CTDIvol: 7.8 mGy. DLP: 402 mGy-cm.mGy. LIMITATIONS: None. FINDINGS: LOWER CHEST: Trace right pleural effusion in the posterior costophrenic sulcus with volume loss and partial collapse right lower lobe. NON-CONTRASTED LIVER, SPLEEN, ADRENALS: Evaluation limited by lack of IV contrast. No identified sign ificant masses. PANCREAS: No masses. No peripancreatic inflammatory changes. GALLBLADDER: No identified stones by CT criteria. No inflammatory changes to suggest cholecystitis. RIGHT KIDNEY AND URETER: No suspicious masses. Assessment limited by lack of IV contrast. No signif icant calcifications. No hydronephrosis or hydroureter. LEFT KIDNEY AND URETER: No suspicious masses. Assessment limited by lack of IV contrast. No signifi cant calcifications. No hydronephrosis or hydroureter. AORTA AND RETROPERITONEUM: No aneurysm. No retroperitoneal masses or adenopathy. BOWEL AND PERITONEAL CAVITY: No obvious masses or inflammatory changes. No free fluid. APPENDIX: Normal. PELVIS, BLADDER, AND ABDOMINAL WALL:Suprapubic catheter drains the bladder. No pelvic masses or letitia opathy. Fat containing bilateral inguinal hernias. BONES: Osteoporotic with chronic T12 central upper endplate depression. OTHER: No other significant finding. IMPRESSION: No acute findings. COMMENT: Quality ID # [id number]: Final reports with documentation of one or more dose reduction techniques (e.g., Automated exposure control, adjustment of the mA and/or kV according to patient size, use of iterative reconstruction technique) TECHNICAL DOCUMENTATION: JOB ID: [id number] [employer]- All Rights Reserved Reading location - IP/workstation name: [email or web address]
[2018-03-05] MEDS ORDERED: NORMAL SALINE IV ONE (13:10)
[2018-03-05 16:12] VITALS: BP 106/70
== END 2018-03-05 16:55 | disposition short-term general hospital (02) ==
LOC: ER 08:48
DX: R31.0 Gross hematuria (principal); N19 Unspecified kidney failure; R41.82 Altered mental status, unspecified; F03.90 Unspecified dementia, unspecified severity, without behavioral disturbance, psychotic disturbance, mood disturbance, and anxiety; J44.9 Chronic obstructive pulmonary disease, unspecified; E11.9 Type 2 diabetes mellitus without complications; I10 Essential (primary) hypertension
CPT/HCPCS: 99285; 96361; 96374; 36415; 87040; 87086; 85025; 87088; 80053; 81001; 87186; 71045; 74176; J0696; J7030

== ENCOUNTER 2018-04-03 10:01 | Inpatient (IN) | payer MEDICARE, OTHER ==
--- NOTE | 2018-04-03 10:42 | ER Document Report ---
ED Respiratory Problem - General Chief Complaint: Breathing Difficulty Stated Complaint: DIFFICULTY BREATHING Time Seen by Provider: 04/03/18 10:16 Notes: 83-year-old male presents to the emergency department from a group home for evaluation of difficulty breathing. Patient reportedly have low oxygen on by Dr. Shelton. Patient with dementia. Indwelling Roman catheter. PEG tube. Currently requiring oxygen. Patient was seen by EMS. Was placed on CPAP. When taking off of CPAP patient's oxygen saturations dropped down into the 70s. non verbal TRAVEL OUTSIDE OF THE [place] IN LAST 30 DAYS: No - HPI Patient complains to provider of: Short of breath Duration: Worse/persistent - Related Data Allergies/Adverse Reactions: ciprofloxacin Allergy (Verified 03/05/18 13:15) Past Medical History - General Information source: [facility] Records Cannot obtain history due to: Dementia, Altered mental status - Social History Smoking Status: Smoker,Current Status Unk Frequency of alcohol use: None Drug Abuse: None Lives with: [facility] Family History: Reviewed & Not Pertinent - Past Medical History Cardiac Medical History: Reports: Hx Congestive Heart Failure, Hx Heart Attack - pacemaker, stent, Hx Hypertension Denies: Hx Coronary Artery Disease Pulmonary Medical History: Reports: Hx COPD, Hx Sleep Apnea Denies: Hx Asthma, Hx Bronchitis, Hx Pneumonia Neurological Medical History: Denies: Hx Cerebrovascular Accident, Hx Seizures Endocrine Medical History: Reports: Hx Diabetes Mellitus Type 2 Renal/ Medical History: Denies: Hx Peritoneal Dialysis GI Medical History: Reports: Hx Gastroesophageal Reflux Disease Musculoskeletal Medical History: Reports Hx Arthritis Psychiatric Medical History: Reports: Hx Depression Past Surgical History: Reports: Hx Cardiac Catheterization, Hx Coronary Stent, Hx Orthopedic Surgery, Hx Pacemaker - Immunizations Hx Diphtheria, Pertussis, Tetanus Vaccination: No Review of Systems - Review of Systems -: Yes ROS unobtainable due to patient's medical condition Physical Exam - Vital signs Vitals: Pulse Ox 92 04/03/18 10:09 Interpretation: Normal - General General appearance: Lethargic In distress: Moderate - HEENT Head: Normocephalic, Atraumatic Eyes: Normal Pupils: PERRL - Respiratory Respiratory status: Respiratory distress, Tachypnea Chest status: Nontender Breath sounds: Decreased air movement, Nonproductive cough, Rales Chest palpation: Normal - Cardiovascular Rhythm: Regular Heart sounds: Normal auscultation Murmur: No - Abdominal Inspection: Normal Distension: No distension Bowel sounds: Normal Tenderness: Nontender Organomegaly: No organomegaly - Back Back: Normal, Nontender - Extremities General upper extremity: Normal inspection, Nontender, Normal color, Normal ROM , Normal temperature General lower extremity: Nontender, Normal color, Normal ROM, Normal temperature , Other - There is a ulcer present on the left heel. The second digit on the left foot appears to have an ulcer as well at the distal tip.. No: Rosario's sign - Neurological Neuro grossly intact: Yes Cognition: Short term memory loss Orientation: Disoriented to person, Disoriented to place, Disoriented to time, Disoriented to events Kiana Coma Scale Verbal: Confused Motor strength normal: LUE, RUE, LLE, RLE Sensory: Normal - Skin Skin Temperature: Warm Skin Moisture: Dry Skin Color: Normal, Other - Ulcer present on the left heel Course - Re-evaluation Re-evalutation: 04/03/18 14:46 Spoke with patient's primary care doctor. Patient will need to be admitted. More than likely this will be terminal. Patient has large amount of fluid on the lungs, bilateral pleural effusions, decompensated congestive heart failure and severe hypoxia. I have spoken with the family. Patient is a DNR. At this time he is tolerating the BiPAP but in the event that he can no longer tolerate that then we should probably make him comfort care. I am treating everything and I can possibly treat at this time including diuretics, antibiotics. Family members are comfortable with my current plan. I have consulted with Dr. Shetlon and he will admit at this time. 04/03/18 14:47 Laboratory 04/03/18 04/03/18 04/03/18 10:50 10:50 10:50 WBC 10.5 RBC 3.70 L Hgb 10.3 L Hct 32.5 L MCV 88 D MCH 27.9 MCHC 31.8 L RDW 17.5 H Plt Count 272 Seg Neutrophils % 83.8 H Lymphocytes % 8.6 L Monocytes % 5.9 Eosinophils % 0.8 Basophils % 0.9 Absolute Neutrophils 8.8 H Absolute Lymphocytes 0.9 Absolute Monocytes 0.6 Absolute Eosinophils 0.1 Absolute Basophils 0.1 Sodium 140.3 Potassium 6.1 H* Chloride 93 L Carbon Dioxide 37 H Anion Gap 10 BUN 92 H Creatinine 2.09 H Est GFR ( Amer) 37 L Est GFR (Non-Af Amer) 30 L Glucose 241 H POC Glucose Calcium 10.0 Total Bilirubin 0.6 Direct Bilirubin 0.6 H Neonat Total Bilirubin Not Reportable Neonat Direct Bilirubin Not Reportable Neonat Indirect Bili Not Reportable AST 19 ALT 16 L Alkaline Phosphatase 203 H Creatine Kinase < 20 L CK-MB (CK-2) 1.16 Troponin I < 0.012 NT-Pro-B Natriuret Pep Total Protein 7.5 Albumin 3.4 L Urine Color Urine Appearance Urine pH Ur Specific [place] Urine Protein Urine Glucose (UA) Urine Ketones Urine Blood Urine Nitrite Urine Bilirubin Urine Urobilinogen Ur Leukocyte Esterase Urine WBC (Auto) Urine RBC (Auto) Urine Bacteria (Auto) Urine WBC Clumps Squamous Epi Cells Auto U Non-Squamous Epis Auto Urine Mucus (Auto) Urine Ascorbic Acid 04/03/18 04/03/18 04/03/18 10:50 11:54 12:41 WBC RBC Hgb Hct MCV MCH MCHC RDW Plt Count Seg Neutrophils % Lymphocytes % Monocytes % Eosinophils % Basophils % Absolute Neutrophils Absolute Lymphocytes Absolute Monocytes Absolute Eosinophils Absolute Basophils Sodium Potassium Chloride Carbon Dioxide Anion Gap BUN Creatinine Est GFR ( Amer) Est GFR (Non-Af Amer) Glucose POC Glucose 333 H Calcium Total Bilirubin Direct Bilirubin Neonat Total Bilirubin Neonat Direct Bilirubin Neonat Indirect Bili AST ALT Alkaline Phosphatase Creatine Kinase CK-MB (CK-2) Troponin I NT-Pro-B Natriuret Pep 33296 H Total Protein Albumin Urine Color YELLOW Urine Appearance TURBID Urine pH 6.0 Ur Specific [place] 1.014 Urine Protein 100 H Urine Glucose (UA) NEGATIVE Urine Ketones NEGATIVE Urine Blood LARGE H Urine Nitrite NEGATIVE Urine Bilirubin NEGATIVE Urine Urobilinogen NEGATIVE Ur Leukocyte Esterase LARGE H Urine WBC (Auto) >182 Urine RBC (Auto) 84 Urine Bacteria (Auto) 1+ Urine WBC Clumps MANY Squamous Epi Cells Auto 2 U Non-Squamous Epis Auto 3 Urine Mucus (Auto) FEW Urine Ascorbic Acid 40 H Chest X-Ray 04/03/18 10:09 IMPRESSION: Congestive failure pattern with interval development of small bilateral pleural effusions with associated airspace densities most consistent with pulmonary edema although I cannot exclude pneumonic infiltrates. Other findings as noted above - Vital Signs Vital signs: Temp Pulse Resp BP Pulse Ox 21 H 99/79 L 100 04/03/18 12:07 04/03/18 12:07 11/19/18 12:07 - Laboratory Result Diagrams: 04/03/18 10:50 04/03/18 10:50 Laboratory results interpreted by me: 04/03/18 04/03/18 04/03/18 10:50 10:50 10:50 RBC 3.70 L Hgb 10.3 L Hct 32.5 L MCHC 31.8 L RDW 17.5 H Seg Neutrophils % 83.8 H Lymphocytes % 8.6 L Absolute Neutrophils 8.8 H Potassium 6.1 H* Chloride 93 L Carbon Dioxide 37 H BUN 92 H Creatinine 2.09 H Est GFR ( Amer) 37 L Est GFR (Non-Af Amer) 30 L Glucose 241 H POC Glucose Direct Bilirubin 0.6 H ALT 16 L Alkaline Phosphatase 203 H Creatine Kinase < 20 L NT-Pro-B Natriuret Pep 34671 H Albumin 3.4 L Urine Protein Urine Blood Ur Leukocyte Esterase Urine Ascorbic Acid 04/03/18 04/03/18 11:54 12:41 RBC Hgb Hct MCHC RDW Seg Neutrophils % Lymphocytes % Absolute Neutrophils Potassium Chloride Carbon Dioxide BUN Creatinine Est GFR ( Amer) Est GFR (Non-Af Amer) Glucose POC Glucose 333 H Direct Bilirubin ALT Alkaline Phosphatase Creatine Kinase NT-Pro-B Natriuret Pep Albumin Urine Protein 100 H Urine Blood LARGE H Ur Leukocyte Esterase LARGE H Urine Ascorbic Acid 40 H - EKG Interpretation by Me EKG shows normal: [place], QRS Complexes, ST-T Waves [place]/QRS: Left axis deviation Additional EKG results interpreted by me: 04/03/18 14:46 Paced ventricular rhythm Critical Care Note - Critical Care Note Total time excluding time spent on procedures (mins): 60 Discharge - Discharge Clinical Impression: Hyperkalemia, Bilateral pleural effusion, Acute decompensated heart failure Respiratory failure Qualifiers: Chronicity: unspecified Respiratory failure complication: hypoxia and hypercapnia Qualified Code(s): J96.91 - Respiratory failure, unspecified with hypoxia Renal failure (ARF), acute on chronic Qualifiers: Acute renal failure type: unspecified Chronic kidney disease stage: unspecified stage Qualified Code(s): N17.9 - Acute kidney failure, unspecified Condition: Poor Disposition: ADMITTED INPATIENT Admitting Provider: [facility] Unit Admitted: [facility]
[2018-04-03 11:09] LABS: ABSOLUTE BASOPHILS # (AUTO) 0.1 10^3/uL (0.0-0.2); ABSOLUTE EOSINOPHILS # (AUTO) 0.1 10^3/uL (0.0-0.6); ABSOLUTE LYMPHOCYTES (AUTO) 0.9 10^3/uL (0.5-4.7); ABSOLUTE MONOCYTES (AUTO) 0.6 10^3/uL (0.1-1.4); ABSOLUTE NEUT (AUTO) 8.8 10^3/uL (1.7-8.2); BASOPHILS % (AUTO) 0.9 % (0-2); EOSINOPHILS % (AUTO) 0.8 % (0-6); HEMATOCRIT 32.5 % (37.9-51.0); HEMOGLOBIN 10.3 g/dL (13.5-17.0); LYMPHOCYTES % (AUTO) 8.6 % (13-45); MEAN CORPUSCULAR HEMOGLOBIN 27.9 pg (27.0-33.4); MEAN CORPUSCULAR HGB CONC 31.8 g/dL (32.0-36.0); MONOCYTES % (AUTO) 5.9 % (3-13); PLATELET COUNT 272 10^3/uL (150-450); RED CELL DISTRIBUTION WIDTH 17.5 % (11.5-14.0); SEGMENTED NEUTROPHILS % (AUTO) 83.8 % (42-78); TOTAL CELLS COUNTED % (AUTO) 100 %; WHITE BLOOD COUNT 10.5 10^3/uL (4.0-10.5)
[2018-04-03 11:23] LABS: ALANINE AMINOTRANSFERASE 16 U/L (21-72); ALBUMIN 3.4 g/dL (3.5-5.0); ALKALINE PHOSPHATASE 203 U/L (38-126); ANION GAP 10 (5-19); ASPARTATE AMINO TRANSFERASE 19 U/L (17-59); BILIRUBIN,DIRECT 0.6 mg/dL (0.0-0.4); BILIRUBIN,TOTAL 0.6 mg/dL (0.2-1.3); BLOOD UREA NITROGEN 92 mg/dL (7-20); CARBON DIOXIDE 37 mmol/L (22-30); CHLORIDE 93 mmol/L (98-107); GLUCOSE 241 mg/dL (75-110); SODIUM 140.3 mmol/L (137-145); TOTAL PROTEIN 7.5 g/dL (6.3-8.2)
[2018-04-03 11:24] LABS: CREATINE KINASE < 20 U/L (55-170)
[2018-04-03 11:27] LABS: MEAN CORPUSCULAR VOLUME 88 fl (80-97)
[2018-04-03] MEDS ORDERED: CALCIUM GLUCONATE 1000 MG/10 ML INJ IV ONE (11:28)
[2018-04-03 11:35] LABS: CREATINE KINASE MB 1.16 ng/mL (<4.55); TROPONIN I < 0.012 ng/mL
--- NOTE | 2018-04-03 11:36 | RADIOLOGY REPORT (SQ) ---
EXAM DESCRIPTION: CHEST SINGLE VIEW COMPLETED DATE/TIME: 04/03/2018 11:15 am REASON FOR STUDY: sob COMPARISON: 03/05/2018 EXAM PARAMETERS: NUMBER OF VIEWS: One view. TECHNIQUE: Single frontal radiographic view of the chest acquired. RADIATION DOSE: NA LIMITATIONS: None. FINDINGS: LUNGS AND PLEURA: There has been interval development of small bilateral pleural effusions . There is associated airspace densities left greater than right most consistent with pulmonary vladimir a although I cannot exclude pneumonic infiltrates. MEDIASTINUM AND HILAR STRUCTURES: No masses. Contour normal. HEART AND VASCULAR STRUCTURES: Cardiac silhouette remains enlarged. BONES: No acute findings. HARDWARE: Pool chamber transvenous pacemaker is unchanged in position. Left shoulder prosthesis is a gain identified. OTHER: No other significant finding. IMPRESSION: Congestive failure pattern with interval development of small bilateral pleural effusion s with associated airspace densities most consistent with pulmonary edema although I cannot exclude p neumonic infiltrates. Other findings as noted above TECHNICAL DOCUMENTATION: JOB ID: [id number] [employer]- All Rights Reserved Reading location - IP/workstation name: [email or web address]
[2018-04-03 11:44] LABS: POTASSIUM 6.1 mmol/L (3.6-5.0)
[2018-04-03] MEDS ORDERED: DEXTROSE 50%-WATER 25 GM/50 ML DISP.SYRIN IV ONE (12:00)
[2018-04-03] MEDS ORDERED: ALBUTEROL SULFATE 0.083% NEB 2.5 MG/3 ML AMPUL NEB ONE (12:00)
[2018-04-03] MEDS ORDERED: INSULIN REG, HUMAN 100 UNIT/ML 3 ML VIAL (PYX) IV ONE (12:00)
[2018-04-03] MEDS ORDERED: FUROSEMIDE INJ/PF 20 MG/2 ML SDV IV ONE (12:01)
[2018-04-03 12:06] LABS: APPEARANCE,URINE TURBID; BILIRUBIN,URINE NEGATIVE (NEGATIVE); GLUCOSE, URINE NEGATIVE (NEGATIVE); KETONES,URINE NEGATIVE (NEGATIVE); LEUKOCYTE ESTERASE,URINE LARGE (NEGATIVE); NITRITE,URINE NEGATIVE (NEGATIVE); PROTEIN,URINE 100 mg/dL (NEGATIVE); URINE SPECIFIC GRAVITY 1.014; UROBILINOGEN,URINE NEGATIVE mg/dL (<2.0)
[2018-04-03 12:07] LABS: COLOR,URINE YELLOW
[2018-04-03] MEDS ORDERED: CEFTRIAXONE 1 GM/D5W RTU 1 GM/50 ML RTUPB IV ONE (12:40)
[2018-04-03 17:42] LABS: ARTERIAL BLOOD O2 SATURATION 97.7 % (94-98); ARTERIAL BLOOD PCO2 56.4 mmHg (35-45); ARTERIAL BLOOD PO2 104.5 mmHg (80-100); ARTERIAL BLOOD TOTAL CO2 35.7 mmol/L (23-27)
[2018-04-03 17:43] LABS: ARTERIAL BLOOD FIO2 65%
--- NOTE | 2018-04-03 18:24 | PDOC H&P ---
History of Present Illness Admission Date/PCP: 04/03/18 14:14 JOHN OSBORNE MD History of Present Illness: DAREK SIMON is a 83 year old male he has multiple comorbid conditions including chronic combined systolic and diastolic heart failure, chronic atrial fibrillation, papillary urethral bladder cancer, dementia recently had PEG tube placement, he has indwelling suprapubic catheter, resident of a [facility] at [place] he was transferred from the [facility] to the emergency room because of shortness of breath and altered mental status. He was evaluated he was found to be in congestive heart failure, no history could be obtained from this patient, used to be on Eliquis but this was stopped in the chcf because of repeated hematuria, patient is basically obtunded, I discussed with patient' s daughter how invasive they want to be with his care, they do not want any intervention, he has multiple hospital admission for cardiac related problems and also sepsis. Patient is requiring noninvasive positive pressure ventilation with BiPAP Past Medical History Cardiac Medical History: Reports: Congestive Heart Failure, Myocardial Infarction - pacemaker, stent, Hypertension Pulmonary Medical History: Reports: Chronic Obstructive Pulmonary Disease (COPD) , Sleep Apnea Endocrine Medical History: Reports: Diabetes Mellitus Type 2 Malignancy Medical History: Reports: Other - Bladder cancer GI Medical History: Reports: Gastroesophageal Reflux Disease Musculoskeltal Medical History: Reports: Arthritis Psychiatric Medical History: Reports: Depression Hematology: Reports: Anemia Past Surgical History Past Surgical History: Reports: Cardiac Catheterization, Coronary Stent, Orthopedic Surgery, Pacemaker Social History Lives with: Intermediate Smoking Status: Former Smoker Frequency of Alcohol Use: None Hx Recreational Drug Use: No Drugs: None Hx Prescription Drug Abuse: No Family History Family History: Reviewed & Not Pertinent Parental Family History Reviewed: Yes Children Family History Reviewed: Yes Sibling(s) Family History Reviewed.: Yes Medication/Allergy Home Medications: Amiodarone HCl [Cordarone 200 mg Tablet] 200 mg PO DAILY 04/04/18 Apixaban [Eliquis 2.5 mg Tablet] 2.5 mg PO BID 04/04/18 Citalopram Hydrobromide [Celexa 20 mg Tablet] 20 mg PO DAILY 04/04/18 Docusate Sodium [Colace 100 mg Capsule] 100 mg PO BID 04/04/18 Ferrous Sulfate [Feosol 325 mg Tablet] 325 mg PO BID 04/04/18 Furosemide [Lasix 40 mg Tablet] 60 mg PO DAILY 04/04/18 Insulin Detemir [Levemir Insulin 100 units/mL] 15 units SQ DAILY 04/04/18 Methocarbamol [Robaxin 500 mg Tablet] 500 mg PO BID 04/04/18 Metoprolol Succinate [Toprol Xl 25 mg Tab.sr] 25 mg PO DAILY 04/04/18 Multivitamin [Daily Multiple Vitamin] 1 tab PO DAILY 04/04/18 Nateglinide [Starlix 60 mg Tablet] 60 mg PO BIDBS 04/04/18 Pantoprazole Sodium [Protonix] 10 mg PO DAILY 04/04/18 Allergies/Adverse Reactions: ciprofloxacin Allergy (Verified 04/04/18 07:03) Review of Systems ROS unobtainable: Due to mental status Physical Exam Vital Signs: Temp Pulse Resp BP Pulse Ox 97.5 F 97 28 H 116/79 93 04/03/18 16:48 04/03/18 16:48 04/03/18 16:48 04/03/18 16:48 04/03/18 16:48 Intake & Output 04/02/18 04/03/18 04/04/18 06:59 06:59 06:59 Intake Total 50 Balance 50 Weight 62.9 kg General appearance: PRESENT: severe distress Eye exam: PRESENT: PERRLA Respiratory exam: PRESENT: crackles Cardiovascular exam: PRESENT: +S2 GI/Abdominal exam: PRESENT: soft, other - There is a PEG tube in place Extremities exam: PRESENT: other - There is loss of muscle mass Neurological exam: PRESENT: other - Obtunded not easily arousable Skin exam: PRESENT: other - loss of skin turgor Results Laboratory Results: 04/03/18 16:35 Carbonic Acid 1.70 H HCO3/H2CO3 Ratio 20:1 ABG pH 7.40 ABG pCO2 56.4 H ABG pO2 104.5 H ABG HCO3 34.0 H ABG O2 Saturation 97.7 ABG Base Excess 8.0 FiO2 65% Impressions: Chest X-Ray 04/03/18 10:09 IMPRESSION: Congestive failure pattern with interval development of small bilateral pleural effusions with associated airspace densities most consistent with pulmonary edema although I cannot exclude pneumonic infiltrates. 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 Is this a current diagnosis for this admission?: Yes Plan: Patient presented with acute combined systolic and diastolic heart failure, history of chronic systolic and diastolic heart failure, start Lasix drip (2) Acute kidney injury Is this a current diagnosis for this admission?: Yes Plan: Acute kidney injury probably cardiorenal syndrome (3) Cardiorenal syndrome Qualifiers: Heart failure presence: with heart failure Hypertensive chronic kidney disease stage: stage 1-4 or unspecified chronic kidney disease Qualified Code( s): I13.0 - Hypertensive heart and chronic kidney disease with heart failure and stage 1 through stage 4 chronic kidney disease, or unspecified chronic kidney disease Is this a current diagnosis for this admission?: Yes (4) Hyperkalemia Is this a current diagnosis for this admission?: Yes
[2018-04-03 18:59] LABS: INTERNATIONAL RATION (INR) 1.23; PROTHROMBIN TIME 16.1 SEC (11.4-15.4)
[2018-04-03 19:00] LABS: PARTIAL THROMBOPLASTIN TIME 28.3 SEC (23.5-35.8)
[2018-04-03 19:10] LABS: CREATINE KINASE < 20 U/L (55-170)
[2018-04-03 19:20] LABS: CREATINE KINASE MB 1.22 ng/mL (<4.55)
[2018-04-03 19:24] LABS: TROPONIN I < 0.012 ng/mL
[2018-04-03] MEDS ORDERED: DEXTROSE 40% GEL 15 GM TUBE X 2 PO PRN (20:20)
[2018-04-03] MEDS ORDERED: DEXTROSE 40% GEL 15 GM TUBE PO PRN (20:20)
[2018-04-03] MEDS ORDERED: DEXTROSE 50%-WATER SYRINGE 25 GM/50 ML DOSE IV PRN (20:20)
[2018-04-03] MEDS ORDERED: GLUCAGON,HUMAN RECOMB 1 MG INJ IM PRN (20:20)
[2018-04-03] MEDS ORDERED: DEXTROSE 50%-WATER SYRINGE 12.5 GM/25 ML DOSE IV PRN (20:20)
[2018-04-03] MEDS: NORMAL SALINE 250 ML with FUROSEMIDE 250 MG IV PRN ×2 (20:23)
[2018-04-03] MEDS: HEPARIN SOD (PORCINE) 5,000 UNIT/ML 1 ML SYRINGE SUBCUT SCH (21:29)
--- NOTE | 2018-04-03 21:57 | EKG REPORT ---
SEVERITY:- ABNORMAL ECG - VENTRICULAR-PACED COMPLEXES : Confirmed by: Terri Cottrell MD 03-Apr-2018 21:57:00
[2018-04-04] MEDS: INSULIN LISPRO 100 UNIT/ML 3 ML VIAL SUBCUT SCH ×4 (00:49→17:57)
[2018-04-04 01:13] LABS: TROPONIN I < 0.012 ng/mL
[2018-04-04] MEDS: HEPARIN SOD (PORCINE) 5,000 UNIT/ML 1 ML SYRINGE SUBCUT SCH ×3 (06:26→21:26)
[2018-04-04 06:45] LABS: HEMATOCRIT 25.1 % (37.9-51.0); HEMOGLOBIN 8.3 g/dL (13.5-17.0); MEAN CORPUSCULAR HEMOGLOBIN 28.2 pg (27.0-33.4); MEAN CORPUSCULAR HGB CONC 33.2 g/dL (32.0-36.0); MEAN CORPUSCULAR VOLUME 85 fl (80-97); PLATELET COUNT 203 10^3/uL (150-450); RED BLOOD COUNT 2.96 10^6/uL (4.35-5.55); RED CELL DISTRIBUTION WIDTH 16.5 % (11.5-14.0); WHITE BLOOD COUNT 8.4 10^3/uL (4.0-10.5)
[2018-04-04 07:07] LABS: ALANINE AMINOTRANSFERASE 13 U/L (21-72); ALBUMIN 2.9 g/dL (3.5-5.0); ALKALINE PHOSPHATASE 114 U/L (38-126); ASPARTATE AMINO TRANSFERASE 14 U/L (17-59); BILIRUBIN,DIRECT 0.4 mg/dL (0.0-0.4); BILIRUBIN,TOTAL 0.4 mg/dL (0.2-1.3); TOTAL PROTEIN 6.2 g/dL (6.3-8.2)
[2018-04-04 07:12] LABS: CREATINE KINASE < 20 U/L (55-170)
[2018-04-04 07:13] LABS: ABSOLUTE LYMPHOCYTES# (MANUAL) 0.4 10^3/uL (0.5-4.7); ABSOLUTE MONOCYTES # (MANUAL) 0.6 10^3/uL (0.1-1.4); ABSOLUTE NEUTROPHILS# (MANUAL) 7.4 10^3/uL (1.7-8.2); BASOPHILS % (MANUAL) 0 % (0-2); EOSINOPHILS % (MANUAL) 0 % (0-6); LYMPHOCYTES % (MANUAL) 5 % (13-45); MONOCYTES % (MANUAL) 7 % (3-13); SEGMENTED NEUTROPHILS % (MAN) 88 % (42-78); TOTAL CELLS COUNTED 100
[2018-04-04 07:17] LABS: ANISOCYTOSIS 1+; PLATELET COMMENT ADEQUATE; POLYCHROMASIA SLIGHT
[2018-04-04 07:40] LABS: TROPONIN I < 0.012 ng/mL
[2018-04-04 18:47] LABS: ANION GAP 8 (5-19); BLOOD UREA NITROGEN 101 mg/dL (7-20); CALCIUM 10.3 mg/dL (8.4-10.2); CARBON DIOXIDE 37 mmol/L (22-30); CHLORIDE 96 mmol/L (98-107); GLUCOSE 145 mg/dL (75-110); POTASSIUM 5.7 mmol/L (3.6-5.0); SODIUM 141.4 mmol/L (137-145)
--- NOTE | 2018-04-04 20:38 | PDOC PROGRESS REPORT ---
Subjective Progress Note for:: 04/04/18 Subjective:: Patient condition remains poor still requiring noninvasive positive pressure ventilation, NG tube feed not yet started family contemplating comfort care measures. We will continue to observe for the next 24 hours Reason For Visit: ACUTE COMBINED SYSTOLIC AND DIASTOLIC HEART Physical Exam Vital Signs: Temp Pulse Resp BP Pulse Ox 98.2 F 113 H 31 H 109/77 96 04/04/18 19:28 04/04/18 19:28 04/04/18 20:06 04/04/18 19:28 04/04/18 20:06 Intake & Output 04/03/18 04/04/18 04/05/18 06:59 06:59 06:59 Intake Total 50 0 Output Total 1600 1850 Balance -1550 -1850 Weight 61.1 kg General appearance: PRESENT: severe distress Eye exam: PRESENT: PERRLA Respiratory exam: PRESENT: rhonchi Cardiovascular exam: PRESENT: +S1, +S2 GI/Abdominal exam: PRESENT: soft Neurological exam: PRESENT: alert Results Laboratory Results: 04/04/18 06:08 04/04/18 06:08 04/04/18 04/04/18 04/04/18 06:08 06:08 06:08 WBC 8.4 RBC 2.96 L Hgb 8.3 L Hct 25.1 L MCV 85 MCH 28.2 MCHC 33.2 RDW 16.5 H Plt Count 203 Seg Neutrophils % Not Reportable Lymphocytes % Not Reportable Monocytes % Not Reportable Eosinophils % Not Reportable Basophils % Not Reportable Absolute Neutrophils Not Reportable Absolute Lymphocytes Not Reportable Absolute Monocytes Not Reportable Absolute Eosinophils Not Reportable Absolute Basophils Not Reportable Sodium 141.4 Potassium 5.7 H Chloride 96 L Carbon Dioxide 37 H Anion Gap 8 BUN 101 H Creatinine 2.09 H Est GFR ( Amer) 37 L Est GFR (Non-Af Amer) 30 L Glucose 145 H Calcium 10.3 H Total Bilirubin 0.4 AST 14 L ALT 13 L Alkaline Phosphatase 114 Total Protein 6.2 L Albumin 2.9 L 04/03/18 04/03/18 04/04/18 18:25 18:25 00:19 Creatine Kinase < 20 L < 20 L CK-MB (CK-2) 1.22 Troponin I < 0.012 04/04/18 04/04/18 04/04/18 00:19 06:08 06:08 Creatine Kinase < 20 L CK-MB (CK-2) 1.10 1.00 Troponin I < 0.012 < 0.012 Impressions: Chest X-Ray 04/03/18 10:09 IMPRESSION: Congestive failure pattern with interval development of small bilateral pleural effusions with associated airspace densities most consistent with pulmonary edema although I cannot exclude pneumonic infiltrates. 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
[2018-04-04] MEDS: NORMAL SALINE 250 ML with FUROSEMIDE 250 MG IV PRN ×2 (21:26)
[2018-04-05] MEDS: INSULIN LISPRO 100 UNIT/ML 3 ML VIAL SUBCUT SCH ×3 (00:23→11:06)
[2018-04-05 05:08] LABS: ABSOLUTE LYMPHOCYTES (AUTO) 0.9 10^3/uL (0.5-4.7); ABSOLUTE MONOCYTES (AUTO) 1.1 10^3/uL (0.1-1.4); ABSOLUTE NEUT (AUTO) 9.1 10^3/uL (1.7-8.2); BASOPHILS % (AUTO) 0.1 % (0-2); EOSINOPHILS % (AUTO) 0.1 % (0-6); HEMATOCRIT 26.5 % (37.9-51.0); HEMOGLOBIN 8.5 g/dL (13.5-17.0); MEAN CORPUSCULAR HEMOGLOBIN 27.5 pg (27.0-33.4); MEAN CORPUSCULAR HGB CONC 32.2 g/dL (32.0-36.0); MEAN CORPUSCULAR VOLUME 86 fl (80-97); MONOCYTES % (AUTO) 9.9 % (3-13); PLATELET COUNT 229 10^3/uL (150-450); RED CELL DISTRIBUTION WIDTH 16.6 % (11.5-14.0); SEGMENTED NEUTROPHILS % (AUTO) 81.9 % (42-78); TOTAL CELLS COUNTED % (AUTO) 100 %; WHITE BLOOD COUNT 11.2 10^3/uL (4.0-10.5)
[2018-04-05] MEDS: HEPARIN SOD (PORCINE) 5,000 UNIT/ML 1 ML SYRINGE SUBCUT SCH ×2 (06:09→15:05)
--- NOTE | 2018-04-05 14:55 | PDOC PROGRESS REPORT ---
Subjective Progress Note for:: 04/05/18 Subjective:: Patient's condition is very poor I spoke to the daughter about comfort care measures for this patient, presently on noninvasive positive pressure ventilation on BiPAP, the daughter is in agreement with comfort care but she would like for mom to be by the bedside when the BiPAP is taken of Reason For Visit: ACUTE COMBINED SYSTOLIC AND DIASTOLIC HEART Physical Exam Vital Signs: Temp Pulse Resp BP Pulse Ox 97.3 F 108 H 22 H 120/78 100 04/05/18 07:22 04/05/18 07:22 04/05/18 12:22 04/05/18 07:22 04/05/18 12:22 Intake & Output 04/04/18 04/05/18 04/06/18 06:59 06:59 06:59 Intake Total 50 275 0 Output Total 1600 3775 1300 Balance -1550 -3500 -1300 Weight 61.1 kg 57.5 kg General appearance: PRESENT: mild distress Respiratory exam: PRESENT: rhonchi Cardiovascular exam: PRESENT: +S1, +S2 GI/Abdominal exam: PRESENT: soft Neurological exam: PRESENT: altered Results Laboratory Results: 04/05/18 04:53 04/04/18 06:08 04/04/18 04/05/18 06:08 04:53 WBC 11.2 H RBC 3.10 L Hgb 8.5 L Hct 26.5 L MCV 86 MCH 27.5 MCHC 32.2 RDW 16.6 H Plt Count 229 Seg Neutrophils % 81.9 H Lymphocytes % 8.0 L Monocytes % 9.9 Eosinophils % 0.1 Basophils % 0.1 Absolute Neutrophils 9.1 H Absolute Lymphocytes 0.9 Absolute Monocytes 1.1 Absolute Eosinophils 0.0 Absolute Basophils 0.0 Sodium 141.4 Potassium 5.7 H Chloride 96 L Carbon Dioxide 37 H Anion Gap 8 BUN 101 H Creatinine 2.09 H Est GFR ( Amer) 37 L Est GFR (Non-Af Amer) 30 L Glucose 145 H Calcium 10.3 H 04/03/18 04/03/18 04/04/18 18:25 18:25 00:19 Creatine Kinase < 20 L < 20 L CK-MB (CK-2) 1.22 Troponin I < 0.012 04/04/18 04/04/18 04/04/18 00:19 06:08 06:08 Creatine Kinase < 20 L CK-MB (CK-2) 1.10 1.00 Troponin I < 0.012 < 0.012 Impressions: Chest X-Ray 04/03/18 10:09 IMPRESSION: Congestive failure pattern with interval development of small bilateral pleural effusions with associated airspace densities most consistent with pulmonary edema although I cannot exclude pneumonic infiltrates. 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 Is this a current diagnosis for this admission?: Yes Plan: Discontinue furosemide infusion transition To comfort care (2) Acute kidney injury Is this a current diagnosis for this admission?: Yes (3) Cardiorenal syndrome Qualifiers: Heart failure presence: with heart failure Hypertensive chronic kidney disease stage: stage 1-4 or unspecified chronic kidney disease Qualified Code( s): I13.0 - Hypertensive heart and chronic kidney disease with heart failure and stage 1 through stage 4 chronic kidney disease, or unspecified chronic kidney disease Is this a current diagnosis for this admission?: Yes (4) Hyperkalemia Is this a current diagnosis for this admission?: Yes
[2018-04-05] MEDS: LORAZEPAM INJ 2 MG/1 ML VIAL IV PRN (17:45)
[2018-04-06] MEDS: LORAZEPAM INJ 2 MG/1 ML VIAL IV PRN ×3 (05:20→16:40)
[2018-04-06] MEDS: MORPHINE SULFATE 10 MG/ML INJ IV PRN ×3 (07:58→17:36)
[2018-04-07] MEDS: MORPHINE SULFATE 10 MG/ML INJ IV PRN ×7 (00:55→20:56)
[2018-04-07] MEDS: LORAZEPAM INJ 2 MG/1 ML VIAL IV PRN ×6 (06:03→20:56)
[2018-04-07 08:32] VITALS: BP 119/84
--- NOTE | 2018-04-07 15:40 | PDOC PROGRESS REPORT ---
Subjective Progress Note for:: 04/07/18 Subjective:: This is currently on a comfort care patient is currently on a BiPAP off the BiPAP and put on the comfort care and the family on the bedside Reason For Visit: ACUTE COMBINED SYSTOLIC AND DIASTOLIC HEART Physical Exam Vital Signs: Temp Pulse Resp BP Pulse Ox 97.6 F 102 H 32 H 119/84 100 04/07/18 07:45 04/07/18 07:45 04/07/18 12:00 04/07/18 07:45 04/07/18 07:51 Intake & Output 04/06/18 04/07/18 04/08/18 06:59 06:59 06:59 Intake Total 275 0 Output Total 2800 675 Balance -2525 -675 Weight 53 kg 53.7 kg Physical Exam: Very altered General appearance: PRESENT: no acute distress Eye exam: PRESENT: EOMI Respiratory exam: PRESENT: decreased breath sounds Cardiovascular exam: PRESENT: +S1, +S2 GI/Abdominal exam: PRESENT: normal bowel sounds, soft Extremities exam: ABSENT: pedal edema Neurological exam: PRESENT: altered Skin exam: PRESENT: dry Results Laboratory Results: 04/05/18 04:53 04/04/18 06:08 04/03/18 04/03/18 04/04/18 18:25 18:25 00:19 Creatine Kinase < 20 L < 20 L CK-MB (CK-2) 1.22 Troponin I < 0.012 04/04/18 04/04/18 04/04/18 00:19 06:08 06:08 Creatine Kinase < 20 L CK-MB (CK-2) 1.10 1.00 Troponin I < 0.012 < 0.012 Impressions: Chest X-Ray 04/03/18 10:09 IMPRESSION: Congestive failure pattern with interval development of small bilateral pleural effusions with associated airspace densities most consistent with pulmonary edema although I cannot exclude pneumonic infiltrates. 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 Is this a current diagnosis for this admission?: Yes (2) Acute on chronic renal failure Qualifiers: Acute renal failure type: unspecified Chronic kidney disease stage: unspecified stage Qualified Code(s): N17.9 - Acute kidney failure, unspecified ; N18.9 - Chronic kidney disease, unspecified; N18.9 - Chronic kidney disease, unspecified Is this a current diagnosis for this admission?: Yes (3) Cardiorenal syndrome Qualifiers: Heart failure presence: with heart failure Hypertensive chronic kidney disease stage: stage 1-4 or unspecified chronic kidney disease Qualified Code( s): I13.0 - Hypertensive heart and chronic kidney disease with heart failure and stage 1 through stage 4 chronic kidney disease, or unspecified chronic kidney disease Is this a current diagnosis for this admission?: Yes (4) Respiratory failure Qualifiers: Chronicity: unspecified Respiratory failure complication: hypoxia and hypercapnia Qualified Code(s): J96.91 - Respiratory failure, unspecified with hypoxia; J96.92 - Respiratory failure, unspecified with hypercapnia; J96.92 - Respiratory failure, unspecified with hypercapnia; J96.92 - Respiratory failure , unspecified with hypercapnia Is this a current diagnosis for this admission?: Yes (5) Atrial fibrillation Qualifiers: Atrial fibrillation type: chronic Qualified Code(s): I48.2 - Chronic atrial fibrillation Is this a current diagnosis for this admission?: Yes (6) Bladder cancer Qualifiers: Bladder location: unspecified site Qualified Code(s): C67.9 - Malignant neoplasm of bladder, unspecified Is this a current diagnosis for this admission?: Yes - Time Time Spent with patient: 15-24 minutes Medications reviewed and adjusted accordingly: Yes Anticipated discharge: Hospice Within: Other - Inpatient Certification Based on my medical assessment, after consideration of the patient's comorbidities, presenting symptoms, or acuity I expect that the services needed warrant INPATIENT care.: Yes I certify that my determination is in accordance with my understanding of Medicare's requirements for reasonable and necessary INPATIENT services [42 CFR 412.3e].: Yes Medical Necessity: Need Close Monitoring Due to Risk of Patient Decompensation 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
--- NOTE | 2018-04-07 19:24 | PDOC PROGRESS REPORT ---
Subjective Progress Note for:: 04/06/18 Subjective:: Patient remain on BiPAP support. Prognosis remain poor and he remain on comfort care at this time. Reason For Visit: ACUTE COMBINED SYSTOLIC AND DIASTOLIC HEART Physical Exam Vital Signs: Temp Pulse Resp BP Pulse Ox 97.3 F 108 H 13 138/76 H 100 04/06/18 07:40 04/06/18 07:40 04/06/18 15:58 04/06/18 07:40 04/06/18 07:50 Intake & Output 04/05/18 04/06/18 04/07/18 06:59 06:59 06:59 Intake Total 275 275 Output Total 3775 2800 400 Balance -3500 -2365 -400 Weight 57.5 kg 53 kg General appearance: PRESENT: mild distress - on BiPAP support Head exam: PRESENT: atraumatic, normocephalic Respiratory exam: PRESENT: decreased breath sounds - at lung bases Cardiovascular exam: PRESENT: RRR, +S1, +S2 Vascular exam: ABSENT: pallor GI/Abdominal exam: PRESENT: normal bowel sounds, soft Neurological exam: PRESENT: other - [place] Skin exam: PRESENT: dry, warm Results Laboratory Results: 04/05/18 04:53 04/04/18 06:08 04/03/18 04/03/18 04/04/18 18:25 18:25 00:19 Creatine Kinase < 20 L < 20 L CK-MB (CK-2) 1.22 Troponin I < 0.012 04/04/18 04/04/18 04/04/18 00:19 06:08 06:08 Creatine Kinase < 20 L CK-MB (CK-2) 1.10 1.00 Troponin I < 0.012 < 0.012 Impressions: Chest X-Ray 04/03/18 10:09 IMPRESSION: Congestive failure pattern with interval development of small bilateral pleural effusions with associated airspace densities most consistent with pulmonary edema although I cannot exclude pneumonic infiltrates. 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 Prognosis remain very poor. (2) Bilateral pleural effusion Is this a current diagnosis for this admission?: Yes Plan: Continue supportive care. Prognosis remain very poor. - Time Time Spent with patient: 15-24 minutes Medications reviewed and adjusted accordingly: Yes Anticipated discharge: Other Within: Other - Inpatient Certification Based on my medical assessment, after consideration of the patient's comorbidities, presenting symptoms, or acuity I expect that the services needed warrant INPATIENT care.: Yes I certify that my determination is in accordance with my understanding of Medicare's requirements for reasonable and necessary INPATIENT services [42 CFR 412.3e].: Yes Medical Necessity: Need Close Monitoring Due to Risk of Patient Decompensation, Need For IV Fluids, Need For Continuous Telemetry Monitoring, Need for Pain Control, Risk of Complication if Not Cared For in Hospital 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 remain comfort care with very poor prognosis.
== END 2018-04-08 00:55 | DRG 291 ==
LOC: ER 10:01 → EH 14:14 → 3W 16:25
PROVIDERS: ADMIT Internal Medicine; ATTEND Internal Medicine
DX: I13.0 Hypertensive heart and chronic kidney disease with heart failure and stage 1 through stage 4 chronic kidney disease, or unspecified chronic kidney disease (principal); I50.43 Acute on chronic combined systolic (congestive) and diastolic (congestive) heart failure; J96.91 Respiratory failure, unspecified with hypoxia; J96.92 Respiratory failure, unspecified with hypercapnia; N17.9 Acute kidney failure, unspecified; Z51.5 Encounter for palliative care; N18.9 Chronic kidney disease, unspecified; E87.5 Hyperkalemia; I48.2 Chronic atrial fibrillation; C67.9 Malignant neoplasm of bladder, unspecified; F03.90 Unspecified dementia, unspecified severity, without behavioral disturbance, psychotic disturbance, mood disturbance, and anxiety; J44.9 Chronic obstructive pulmonary disease, unspecified; K21.9 Gastro-esophageal reflux disease without esophagitis; E11.22 Type 2 diabetes mellitus with diabetic chronic kidney disease; M19.90 Unspecified osteoarthritis, unspecified site; F32.9 Major depressive disorder, single episode, unspecified; G47.30 Sleep apnea, unspecified; Z95.5 Presence of coronary angioplasty implant and graft; Z66 Do not resuscitate; Z93.1 Gastrostomy status; Z88.1 Allergy status to other antibiotic agents; I25.2 Old myocardial infarction; Z95.0 Presence of cardiac pacemaker; Z87.891 Personal history of nicotine dependence; Z79.4 Long term (current) use of insulin
CPT/HCPCS: 36415; 36600; 71045; 80048; 80053; 80076; 81001; 82550; 82553; 82803; 82962; 83036; 83735; 83880; 84439; 84484; 85025; 85610; 85730; 87040; 87077; 87086; 87088; 87186; 93005; 93010; 94640; 94660; 96365; 96375; 99291; J0610; J0696; J1644; J1815; J1940; J2060; J2270; J3490; J7050